=== PATIENT | female | born 1970 | race Caucasian/White ===

== ENCOUNTER 2016-07-07 08:12 | Emergency (ER) | payer OTHER ==
[~2016-07-07] VITALS: Ht 157.5 cm; Wt 66.7 kg
[~2016-07-07 08:12] MED LIST: ALBUAER INH; BENZ1CAP90 PO; FLUO20CA35 PO; ONDA4TAB46 PO; SUMA50TA15 PO; VORT10TA PO
[2016-07-07 08:15] VITALS: TEMP 36.5; Ht 157.5 cm; Wt 66.7 kg
[2016-07-07] MEDS ORDERED: SODIUM CHLORIDE 0.9% 1000ML 1,000 ML IV STA (08:22)
[2016-07-07] MEDS ORDERED: ONDANSETRON INJ 2 MG/ML 2 ML VIAL IV STA ×2 (09:02→09:34)
[2016-07-07] MEDS ORDERED: HYDROmorphone INJ 1 MG/ML SYR IV STA ×2 (09:02→09:34)
[2016-07-07 09:05] LABS: BASO % 0.4 %; BASO ABS # 0.03 K/uL (0-0.2); COMPLETE YES; EOS % 2.6 %; HEMATOCRIT 44.1 % (37-47); IG% 0.4 %; LYMPH % 26.9 %; LYMPH ABS # 1.88 K/uL (1.2-3.4); MEAN CELL VOLUME 97.1 fL (80-100); MEAN CORPUSCULAR HEMOGLOBIN 35.5 pg (25-34); MEAN CORPUSCULAR HGB CONC 36.5 g/dl (32-36); MEAN PLATELET VOLUME 10.6 fL (7.4-10.4); MONO % 8.4 %; NEUT % 61.3 %; PLATELET COUNT 149 K/uL (130-400); RED BLOOD COUNT 4.54 M/uL (4.2-5.4)
[2016-07-07 09:13] LABS: PARTIAL THROMBOPLASTIN RATIO 0.9; PROTHROMBIN TIME (PATIENT) 10.5 SECONDS (9.0-12.0)
[2016-07-07] MEDS ORDERED: OPTIRAY 320 IV PRN (09:15)
[2016-07-07 09:16] VITALS: O2SAT 98
[2016-07-07 09:23] LABS: ALT/SGPT 27 U/L (12-78); BLOOD UREA NITROGEN 14 mg/dl (7-18); BUN/CREATININE RATIO 15.2 (10-20); CALCIUM 8.8 mg/dl (8.5-10.1); CARBON DIOXIDE 19 mmol/L (21-32); CHLORIDE 112 mmol/L (98-107); CREATININE 0.89 mg/dl (0.60-1.20); GLUCOSE 90 mg/dl (70-99); POTASSIUM 3.4 mmol/L (3.5-5.1); SODIUM 142 mmol/L (136-145)
[2016-07-07 09:26] LABS: ALKALINE PHOSPHATASE 48 U/L (45-117); AST/SGOT 19 U/L (15-37)
[2016-07-07 09:36] LABS: PREG INTERNAL NEGATIVE QC NEG CLEAR BACKGROUND; PREG INTERNAL POSITIVE QC POS CONTROL LINE
[2016-07-07] MEDS ORDERED: METOCLOPRAMIDE HCL INJ 5 MG/ML 2 ML VIAL IV STA (10:02)
[2016-07-07] MEDS ORDERED: PANTOprazole INJ 40 MG in SYRINGE 0 ML IV ONE (10:15)
[2016-07-07 10:21] LABS: URINE APPEARANCE CLOUDY (CLEAR); URINE BILIRUBIN NEG (NEG); URINE EPITHELIAL CELL AUTO >30 /lpf (0-5); URINE NITRITE NEG (NEG); URINE PH 5.5 (4.5-7.5); URINE SPECIFIC GRAVITY 1.021 (1.000-1.030); UROBILINOGEN NEG (NEG)
[2016-07-07 10:22] LABS: MANUAL MICROSCOPIC REQUIRED? NO; REVIEW REQ? NO; URINE COLOR AMBER
--- NOTE | 2016-07-07 10:46 | DIAGNOSTIC IMAGING REPORT ---
ABDOMEN AND PELVIS CT WITH IV CONTRAST CT DOSE: 548.21 mGy.cm HISTORY: Left lower quadrant abdominal pain. Rectal bleeding. Ulcerative colitis. TECHNIQUE: Multiaxial CT images of the abdomen and pelvis were performed following the use of intravenous contrast. COMPARISON STUDY: Abdomen and pelvis CT 12/03/2014. FINDINGS: Tiny fat-containing hiatus hernia. Stable 4 mm nodule within the right lower lobe on image 1. No pneumoperitoneum. No pneumatosis. Cholecystectomy. The liver, spleen, adrenal glands, pancreas, and right kidney are unremarkable. There is a punctate stone within the upper pole the left kidney. No hydronephrosis. The bladder, uterus, and ovaries are unremarkable. No retroperitoneal lymphadenopathy. Mild wall thickening and pericolonic fat stranding involving the descending colon and proximal sigmoid colon. No evidence for bowel obstruction. A few colonic diverticula. Normal appendix. IMPRESSION: 1. Mild bowel wall thickening involving the descending colon and proximal sigmoid colon. This is consistent with a nonspecific colitis. This is likely due to an infectious or inflammatory process. 2. Cholecystectomy. 3. Stable 4 mm nodule in the right lower lobe. 4. Normal appendix. Electronically signed by: Balwinder Beltran M.D. 07/07/2016 10:44 AM Dictated Date/Time: 07/07/2016 10:38 AM
[2016-07-07] MEDS ORDERED: DICY20TA35 PO (12:33)
[2016-07-07 12:48] VITALS: BP 95/57; PULSE 67; O2SAT 92
--- NOTE | 2016-07-07 16:25 | EMERGENCY ROOM VISIT NOTE ---
History Report prepared by Sarbjit: Elba Sosa Under the Supervision of: Dr. Eric Adams M.D. First contact with patient: 08:14 Chief Complaint: GI ASSESSMENT Stated Complaint: GI BLEED Nursing Triage Summary: Patient c/o abdominal pain, bloating, nausea, diarrhea and red blood in stool x 2 days. Today she woke up, "had one sip of water and it all started again" hx Ulcerative colitis. Takes Coumadin but has not taken it the last few days. History of Present Illness The patient is a 45 year old female who presents to the Emergency Room for a GI assessment as she has experienced approximately 8 movements of diarrhea with bright red blood throughout her stool over the past 2 days. Currently, she is experiencing pain to her lower abdomen, which radiates through to her back, and she rates her discomfort as a 7/10. Since the time of onset, the patient has also felt nauseous, but she denies vomiting or having any dysuria or hematuria. She is currently on the last day of her menstrual cycle, which she states has been normal for her. The patient has a history of factor V Leiden, which is managed with Coumadin, but she states that she stopped taking it two days ago as she thought that it was upsetting her stomach. She also has a history of ulcerative colitis, but her last flare up was 7 years ago and she is not on any maintenance therapy. Patient denies recent fevers, chills, headache, chest pain , shortness of breath, or abnormal swelling to her extremities. Source of History: patient Onset: yesterday Position: abdomen Symptom Intensity: 7/10 Quality: other (bright red blood) Timing: other (8 movements) Modifying Factors (Worsening): defecation Associated Symptoms: + abdominal pain, + diarrhea, + nausea, No SOB, No chest pain, No fevers, No urinary symptoms, No vomiting Review of Systems See HPI for pertinent positives & negatives. A total of 10 systems reviewed and were otherwise negative. Past Medical & Surgical Medical Problems: (1) Abdominal pain (2) Abdominal pain (3) Abdominal pain (4) Abdominal pain (5) Abdominal pain (6) Acute bronchitis (7) Asthma, Unspecified (8) Bipolar Disorder, Unspecified (9) Cervical strain (10) Closed head injury (11) Common Migraine W/O Intractable Migraine (12) Dehydration (13) Dizziness (14) DVT of lower extremity (deep venous thrombosis) (15) Epilepsy, Unsp, Not Intractable, Without Status Epilepticus (16) Facial laceration (17) Factor V Leiden (18) Factor V Leiden (19) Flank pain (20) GI bleed (21) Kidney stone (22) Kidney stone (23) Leg pain, right (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 (25) Multiple pulmonary emboli (26) Pain, dental (27) Pleuritic chest pain (28) Right leg pain (29) Subtherapeutic international normalized ratio (INR) (30) Subtherapeutic international normalized ratio (INR) Surgical Problems: (1) Tubal Ligation Status Family History FH: cancer Gallbladder disease Kidney disease Kidney stones Social History Smoking Status: Current Some Day Smoker Alcohol Use: none Drug Use: none Marital Status: Housing Status: lives with family Occupation Status: employed Current/Historical Medications Scheduled Dicyclomine Hcl (Bentyl), 20 MG PO TID Fluoxetine (Prozac), 20 MG PO DAILY Topiramate (Topamax), 400 MG PO QAM Vortioxetine HBr (Brintellix), 15 MG PO DAILY Warfarin Sodium (Coumadin), 5 MG PO DAILY Scheduled PRN Albuterol (Proventil Hfa), 2 PUFFS INH QID PRN for Shortness of Breath Hydrocodone/Acetaminophen 5MG/325MG ([place] 5MG/325MG), 1 TAB PO Q8 PRN for Pain Lorazepam (Ativan), 0.5 MG PO BID PRN for Anxiety Sumatriptan Succinate (Imitrex), 50 MG PO UD PRN for Migraine Allergies Coded Allergies: Morphine (Verified Allergy, Intermediate, chest pain; trouble breathing, ) Chocolate (Verified Allergy, Unknown, 07/07/16) Kiwi (Verified Allergy, Unknown, ANAPHYLAXIS, 07/07/16) Peanut (Verified Allergy, Unknown, 07/07/16) Prochlorperazine (Verified Allergy, Unknown, SEVERE ALLERGIC RXN, 07/07/16) Physical Exam Vital Signs Date Time Temp Pulse Resp B/P Pulse Ox O2 Delivery O2 Flow Rate FiO2 07/07/16 12:48 67 18 95/57 92 Room Air 07/07/16 11:03 81 18 97/52 98 Room Air 07/07/16 09:26 70 07/07/16 09:19 74 20 106/67 95 Room Air 07/07/16 09:16 98 Room Air 07/07/16 08:15 36.5 84 22 115/74 96 Room Air Physical Exam GENERAL: Patient is a healthy-appearing well-nourished 45 year old female. Appears uncomfortable, in mild distress. HEAD: Normocephalic atraumatic EYES: Ocular movements intact pupils equal and react to light OROPHARYNX mucous membranes are moist no exudates present no erythema or edema present NECK: Supple no nuchal rigidity CHEST: Good equal expansion LUNGS: Clear and equal to auscultation CARDIAC: Normal S1 and S2 ABDOMEN: Slight tenderness to the LLQ to palpation. RECTAL: Brown stool, heme negative. BACK: No CVA tenderness EXTREMITIES: No pain upon palpation normal muscle strength in all groups no clubbing cyanosis or edema NEURO: Patient is following commands is answering questions appropriately. Alert and oriented x3 Cranial Nerves 2-12 grossly intact Medical Decision & Procedures ER Provider Diagnostic Interpretation: CT results as stated below per my review and radiologist interpretation: ABDOMEN AND PELVIS CT WITH IV CONTRAST CT DOSE: 548.21 mGy.cm HISTORY: Left lower quadrant abdominal pain. Rectal bleeding. Ulcerative colitis. TECHNIQUE: Multiaxial CT images of the abdomen and pelvis were performed following the use of intravenous contrast. COMPARISON STUDY: Abdomen and pelvis CT 12/03/2014. FINDINGS: Tiny fat-containing hiatus hernia. Stable 4 mm nodule within the right lower lobe on image 1. No pneumoperitoneum. No pneumatosis. Cholecystectomy. The liver, spleen, adrenal glands, pancreas, and right kidney are unremarkable. There is a punctate stone within the upper pole the left kidney. No hydronephrosis. The bladder, uterus, and ovaries are unremarkable. No retroperitoneal lymphadenopathy. Mild wall thickening and pericolonic fat stranding involving the descending colon and proximal sigmoid colon. No evidence for bowel obstruction. A few colonic diverticula. Normal appendix. IMPRESSION: 1. Mild bowel wall thickening involving the descending colon and proximal sigmoid colon. This is consistent with a nonspecific colitis. This is likely due to an infectious or inflammatory process. 2. Cholecystectomy. 3. Stable 4 mm nodule in the right lower lobe. 4. Normal appendix. Electronically signed by: Balwinder Beltran M.D. 07/07/2016 10:44 AM Dictated Date/Time: 07/07/2016 10:38 AM Laboratory Results 07/07/16 08:49 Red Blood Count 4.54, Mean Corpuscular Volume 97.1, Mean Corpuscular Hemoglobin 35.5, Mean Corpuscular Hemoglobin Concent 36.5, Mean Platelet Volume 10.6, Neutrophils (%) (Auto) 61.3, Lymphocytes (%) (Auto) 26.9, Monocytes (%) (Auto) 8.4, Eosinophils (%) (Auto) 2.6, Basophils (%) (Auto) 0.4, Neutrophils # (Auto) 4.29, Lymphocytes # (Auto) 1.88, Monocytes # (Auto) 0.59, Eosinophils # (Auto) 0.18, Basophils # (Auto) 0.03 07/07/16 08:49 Test 07/07/16 08:49 07/07/16 10:10 White Blood Count 7.00 K/uL (4.8-10.8) Red Blood Count 4.54 M/uL (4.2-5.4) Hemoglobin 16.1 g/dL (12.0-16.0) Hematocrit 44.1 % (37-47) Mean Corpuscular Volume 97.1 fL (80-100) Mean Corpuscular Hemoglobin 35.5 pg (25-34) Mean Corpuscular Hemoglobin Concent 36.5 g/dl (32-36) Platelet Count 149 K/uL (130-400) Mean Platelet Volume 10.6 fL (7.4-10.4) Neutrophils (%) (Auto) 61.3 % Lymphocytes (%) (Auto) 26.9 % Monocytes (%) (Auto) 8.4 % Eosinophils (%) (Auto) 2.6 % Basophils (%) (Auto) 0.4 % Neutrophils # (Auto) 4.29 K/uL (1.4-6.5) Lymphocytes # (Auto) 1.88 K/uL (1.2-3.4) Monocytes # (Auto) 0.59 K/uL (0.11-0.59) Eosinophils # (Auto) 0.18 K/uL (0-0.5) Basophils # (Auto) 0.03 K/uL (0-0.2) RDW Standard Deviation 44.4 fL (36.4-46.3) RDW Coefficient of Variation 12.5 % (11.5-14.5) Immature Granulocyte % (Auto) 0.4 % Immature Granulocyte # (Auto) 0.03 K/uL (0.00-0.02) Prothrombin Time 10.5 SECONDS (9.0-12.0) Prothromb Time International Ratio 1.0 (0.9-1.1) Activated Partial Thromboplast Time 23.0 SECONDS (21.0-31.0) Partial Thromboplastin Ratio 0.9 Anion Gap 11.0 mmol/L (3-11) Est Creatinine Clear Calc Drug Dose 73.0 ml/min Estimated GFR () 92.0 Estimated GFR (Non- 79.4 BUN/Creatinine Ratio 15.2 (10-20) Calcium Level 8.8 mg/dl (8.5-10.1) Total Bilirubin 0.4 mg/dl (0.2-1) Direct Bilirubin < 0.1 mg/dl (0-0.2) Aspartate Amino Transf (AST/SGOT) 19 U/L (15-37) Alanine Aminotransferase (ALT/SGPT) 27 U/L (12-78) Alkaline Phosphatase 48 U/L (45-117) Total Protein 6.9 gm/dl (6.4-8.2) Albumin 3.6 gm/dl (3.4-5.0) Lipase 206 U/L (73-393) Human Chorionic Gonadotropin, Qual NEG (NEG) Urine Color ANNABELLE Urine Appearance CLOUDY (CLEAR) Urine pH 5.5 (4.5-7.5) Urine Specific Wana 1.021 (1.000-1.030) Urine Protein 1+ (NEG) Urine Glucose (UA) NEG (NEG) Urine Ketones NEG (NEG) Urine Occult Blood 3+ (NEG) Urine Nitrite NEG (NEG) Urine Bilirubin NEG (NEG) Urine Urobilinogen NEG (NEG) Urine Leukocyte Esterase SMALL (NEG) Urine WBC (Auto) 5-10 /hpf (0-5) Urine RBC (Auto) >30 /hpf (0-4) Urine Hyaline Casts (Auto) 1-5 /lpf (0-5) Urine Epithelial Cells (Auto) >30 /lpf (0-5) Urine Bacteria (Auto) 1+ (NEG) Labs reviewed by ED physician. Medications Administered Medications (Trade) Dose Ordered Sig/Cassy Route Start Time Stop Time Status Last Admin Dose Admin Sodium Chloride (Nss 1000ml) 1,000 ml @ 999 mls/hr Q1H1M STAT IV 07/07/16 08:22 07/07/16 09:22 DC 07/07/16 09:13 999 MLS/HR Hydromorphone HCl (Dilaudid Inj) 1 mg NOW STAT IV 07/07/16 09:02 07/07/16 09:04 DC 07/07/16 09:13 1 MG Ondansetron HCl (Zofran Inj) 4 mg NOW STAT IV 07/07/16 09:02 07/07/16 09:04 DC 07/07/16 09:13 4 MG Hydromorphone HCl (Dilaudid Inj) 1 mg NOW STAT IV 07/07/16 09:34 07/07/16 09:36 DC 07/07/16 10:04 1 MG Ondansetron HCl (Zofran Inj) 4 mg NOW STAT IV 07/07/16 09:34 07/07/16 09:36 DC 07/07/16 10:04 4 MG Metoclopramide HCl 10 mg 10 mg NOW STAT IV 07/07/16 10:02 07/07/16 10:04 DC 07/07/16 10:07 10 MG Pantoprazole Sodium/Syringe (Protonix Inj/ Syringe) 10 ml @ 5 mls/min NOW ONCE IV 07/07/16 10:15 07/07/16 10:16 DC 07/07/16 11:02 5 MLS/MIN ECG Indication: abdominal pain Rate (beats per minute): 62 Rhythm: normal sinus Findings: T-wave inversion (Lateral), no acute ischemic change, no ectopy ED Course 0820: Past medical records reviewed. The patient was evaluated in room B6. A complete history and physical examination was performed. 0822: NSS bolus IV was ordered. 0902: Zofran 4 mg IV and Dilaudid 1 mg IV were ordered. 0934: Upon reevaluation, patient was still experiencing pain. Zofran 4 mg IV and Dilaudid 1 mg IV were ordered. 1002: Patient was still having discomfort and was requesting additional medication. Reglan 10 mg IV was ordered. 1015: Pantoprazole Sodium 40 mg/Syringe 10 ml @ 5 mls/min IV was ordered. 1055: Upon reevaluation, the patient was doing well and appeared to be resting more comfortably. I updated her on the results of her radiology reports and lab tests that have returned. GI will be consulted. 1145: Apolonia Corbett PA-C of GI was contacted. She stated that the patient could be discharged on Bentyl. 1200: I updated the patient on my discussion with GI. Additional discharge instructions were also discussed. She verbalized her understanding and agreement with the treatment plan, and she is now ready for disposition. Medical Decision Differential diagnosis: Etiologies such as diverticulosis, AVM, coagulopathy, colitis, inflammatory bowel disease, malignancy, Peg-Snyder tear, esophagitis, peptic ulcer disease , variceal bleed, gastritis, epistaxis, fissure, hemorrhoids, as well as others were entertained. This is a 45-year-old female who presents emergency department complaining of rectal bleeding. The patient is heme negative on rectal examination. In addition the patient's hemoglobin is x-ray higher than it normally is. She also has a normal liver profile normal liver profile and normal lipase. Serial abdominal examinations were performed on the patient in the emergency department and at no time did the patient exhibited a surgical abdomen. Because of the patient's past medical history of ulcerative colitis she was sent for CAT scan of the abdomen pelvis. This just showed a mild colitis. In addition the patient has never been placed on steroids for ulcerative colitis nor does she take any preventative medications. Based on these findings I did discuss the case with gastroenterology who asked that the patient be placed on Bentyl with a follow-up appointment. Patient was in agreement with the treatment plan. Consults Time Called: 1100 Consulting Physician: Apolonia Corbett PA-C GI Returned Call: [phone] Discussed the patient's case. She stated that the patient could be discharge on Bentyl. Impression Primary Impression: Abdominal pain Scribe Attestation The scribe's documentation has been prepared under my direction and personally reviewed by me in its entirety. I confirm that the note above accurately reflects all work, treatment, procedures, and medical decision making performed by me. Departure Information Dispostion Home / Self-Care Prescriptions Dicyclomine Hcl (BENTYL) 20 Mg Tab 20 MG PO TID for 10 Days, #30 TAB Prov: Eric Adams MD 07/07/16 Referrals No Doctor, Assigned (PCP) Forms HOME CARE DOCUMENTATION FORM, IMPORTANT VISIT INFORMATION Patient Instructions My [facility] Additional Instructions Follow up with DR Mcnamara's office Clear liquid diet next 48 hours You have been examined and treated today on an emergency basis only. This is not a substitute for, or an effort to provide, complete comprehensive medical care. It is impossible to recognize and treat all injuries or illnesses in a single emergency department visit. It is therefore important that you follow up closely with Dr Turpin. Call as soon as possible for an appointment. Thank you for your time and consideration. I look forward to speaking with you again soon. Please don't hesitate to call us if you have any questions. Problem Qualifiers Primary Impression: Abdominal pain Abdominal location: lower abdomen, unspecified Qualified Codes: R10.30 - Lower abdominal pain, unspecified
[2016-07-28] MEDS ORDERED: LORA-741 PO (14:14)
[2016-08-02] MEDS ORDERED: VNTHFA/IN INH (08:18)
[2016-08-02] MEDS ORDERED: HYDR-5688 PO (08:40)
[2016-08-02] MEDS ORDERED: TOPI200T20 PO (14:14)
[2016-08-03] MEDS ORDERED: OXYC-643 PO ×3 (18:13→19:58)
== END 2016-07-07 12:50 | disposition home or self-care (01) ==
LOC: C.EDB 08:14
DX: R10.9 Unspecified abdominal pain (principal); D68.51 Activated protein C resistance; Z79.01 Long term (current) use of anticoagulants; J45.909 Unspecified asthma, uncomplicated; Z86.718 Personal history of other venous thrombosis and embolism; G40.909 Epilepsy, unspecified, not intractable, without status epilepticus; Z87.442 Personal history of urinary calculi; Z86.711 Personal history of pulmonary embolism; Z98.51 Tubal ligation status; F17.200 Nicotine dependence, unspecified, uncomplicated; Z88.5 Allergy status to narcotic agent; Z91.018 Allergy to other foods

== ENCOUNTER 2016-07-25 06:22 | Emergency (ER) | payer OTHER ==
[~2016-07-25] VITALS: Ht 157.5 cm; Wt 66.9 kg
[~2016-07-25 06:22] MED LIST changes: -BENZ1CAP90 PO; -ONDA4TAB46 PO
[2016-07-25 06:28] VITALS: Ht 157.5 cm; Wt 66.9 kg
[2016-07-25 07:18] LABS: URINE APPEARANCE CLOUDY (CLEAR); URINE BILIRUBIN NEG (NEG); URINE COLOR YELLOW; URINE EPITHELIAL CELL AUTO >30 /lpf (0-5); URINE NITRITE NEG (NEG); URINE SPECIFIC GRAVITY 1.033 (1.000-1.030); UROBILINOGEN NEG (NEG); ZZUR CULT IF INDIC CLEAN CATCH YES
[2016-07-25 07:29] LABS: MANUAL MICROSCOPIC REQUIRED? NO; REVIEW REQ? NO
--- NOTE | 2016-07-25 07:37 | DIAGNOSTIC IMAGING REPORT ---
ULTRASOUND LEFT VENOUS DOPP LOWER EXT UNILAT CLINICAL HISTORY: Left lower extremity swelling COMPARISON STUDY: No previous studies for comparison. FINDINGS: There is thrombus within the left common femoral vein. The appearance suggests that this may be subacute. There is acute thrombus within the left popliteal vein. There is chronic thrombus within the superficial femoral vein. There is extensive superficial thrombus extending over the entire length of the posterior thigh. IMPRESSION: 1. Acute and subacute DVT involving the left lower extremity with involvement of the common femoral, superficial femoral, and popliteal vein 2. Also identified is a superficial thrombus involving the entire length of the posterior thigh Electronically signed by: Dae Davis M.D. 07/25/2016 7:35 AM Dictated Date/Time: 07/25/2016 7:32 AM
[2016-07-25] MEDS ORDERED: SODIUM CHLORIDE 0.9% 1000ML 1,000 ML IV STA (07:47)
[2016-07-25 07:50] VITALS: O2SAT 97
--- NOTE | 2016-07-25 07:56 | EMERGENCY ROOM VISIT NOTE ---
History Report prepared by Sarbjit: Basilia Gerard Under the Supervision of: Dr. Jennifer Borjas M.D. First contact with patient: 06:37 Chief Complaint: EDEMA TO EXTREMITY Stated Complaint: LT LEG PAIN SWOLLEN, DVT History of Present Illness The patient is a 45 year old female who presents to the Emergency Room with complaints of persistent left leg swelling that began Sunday. She currently rates her discomfort as an 8/10 in severity. The patient states that she first noticed a soreness to her left leg on Sunday and then she noticed the swelling. She states that her soreness worsened and then the swelling worsened. 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 She states that she had a PE two years ago. The patient states that she has been on Coumadin since she was 18 and states that her last INR level was 3.1 before . She states that she developed back pain 15 minutes ago and additionally is feeling lightheaded. The patient denies any shortness of breath. She notes a history of a seizure disorder, noting that she takes 10 mg of Topamax. The patient denies taking any long trips recently. Source of History: patient Onset: Sunday Position: leg (left) Symptom Intensity: 8/10 Quality: other (swelling) Timing: other (persistent) Associated Symptoms: + back pain, No SOB Note: Associated Symptoms: Left leg pain, lightheadedness Review of Systems See HPI for pertinent positives & negatives. A total of 10 systems reviewed and were otherwise negative. Past Medical & Surgical Medical Problems: (1) Abdominal pain (2) Abdominal pain (3) Abdominal pain (4) Abdominal pain (5) Abdominal pain (6) Acute bronchitis (7) Asthma, Unspecified (8) Bipolar Disorder, Unspecified (9) Cervical strain (10) Closed head injury (11) Common Migraine W/O Intractable Migraine (12) Dehydration (13) Dizziness (14) DVT of lower extremity (deep venous thrombosis) (15) Epilepsy, Unsp, Not Intractable, Without Status Epilepticus (16) Facial laceration (17) Factor V Leiden (18) Factor V Leiden (19) Flank pain (20) GI bleed (21) Kidney stone (22) Kidney stone (23) Leg pain, right (24) Fpc (Current) Use Of 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 (25) Multiple pulmonary emboli (26) Pain, dental (27) Pleuritic chest pain (28) Right leg pain (29) Subtherapeutic international normalized ratio (INR) (30) Subtherapeutic international normalized ratio (INR) Surgical Problems: (1) Tubal Ligation Status Family History FH: cancer Gallbladder disease Kidney disease Kidney stones Social History Smoking Status: Current Some Day Smoker Alcohol Use: none Drug Use: none Marital Status: Housing Status: lives with family Occupation Status: employed Current/Historical Medications Scheduled Albuterol Hfa (Ventolin Hfa), 2-4 PUFFS INH Q6H Fluoxetine (Prozac), 20 MG PO DAILY Rivaroxaban (Xarelto), 15 MG PO BID Topiramate (Topamax), 400 MG PO QAM Warfarin Sodium (Coumadin), 5 MG PO DAILY Scheduled PRN Hydrocodone/Acetaminophen 5MG/325MG ([place] 5MG/325MG), 1 TAB PO Q8 PRN for Pain Lorazepam (Ativan), 0.5 MG PO BID PRN for Anxiety Sumatriptan Succinate (Imitrex), 50 MG PO UD PRN for Migraine Allergies Coded Allergies: Morphine (Verified Allergy, Intermediate, chest pain; trouble breathing, ) Chocolate (Verified Allergy, Unknown, 07/25/16) Kiwi (Verified Allergy, Unknown, ANAPHYLAXIS, 07/25/16) Peanut (Verified Allergy, Unknown, 07/25/16) Prochlorperazine (Verified Allergy, Unknown, SEVERE ALLERGIC RXN, 07/25/16) Physical Exam Vital Signs Date Time Temp Pulse Resp B/P Pulse Ox O2 Delivery O2 Flow Rate FiO2 07/25/16 11:52 36.6 76 18 103/65 99 07/25/16 11:26 56 20 110/58 98 Room Air 07/25/16 09:14 60 20 106/61 97 Room Air 07/25/16 07:50 97 Room Air 07/25/16 07:34 66 20 112/74 98 Room Air 07/25/16 06:28 36.6 88 18 121/80 96 Room Air Physical Exam Vital signs reviewed. General: Well-appearing female, in no significant distress. HEENT: No scleral icterus, PERRLA, neck supple. Atraumatic. Cardiovascular: Regular rate and rhythm, no extra sounds. Pulmonary: Clear to auscultation bilaterally, normal work of breathing. Abdomen: Soft, nontender, nondistended, positive bowel sounds. Musculoskeletal: Left greater right lower extremity edema, nonpitting. Atraumatic. Neurologic: Patient awake alert and oriented x 3, full strength in all 4 extremities. Cranial nerves 2 through 12 grossly intact. Skin: Warm, dry, no rash Medical Decision & Procedures ER Provider Diagnostic Interpretation: X-ray results as stated below per my interpretation and radiologist interpretation. Other radiology results as stated below per my review and radiologist interpretation: ULTRASOUND LEFT VENOUS DOPP LOWER EXT UNILAT CLINICAL HISTORY: Left lower extremity swelling COMPARISON STUDY: No previous studies for comparison. FINDINGS: There is thrombus within the left common femoral vein. The appearance suggests that this may be subacute. There is acute thrombus within the left popliteal vein. There is chronic thrombus within the superficial femoral vein. There is extensive superficial thrombus extending over the entire length of the posterior thigh. IMPRESSION: 1. Acute and subacute DVT involving the left lower extremity with involvement of the common femoral, superficial femoral, and popliteal vein 2. Also identified is a superficial thrombus involving the entire length of the posterior thigh Electronically signed by: Dae Davis M.D. 07/25/2016 7:35 AM Dictated Date/Time: 07/25/2016 7:32 AM CHEST CTA for PULMONARY ARTERIES CT DOSE: 217.68 mGy.cm HISTORY: Chest pain dyspnea TECHNIQUE: Multiaxial CT images of the chest were performed following the intravenous administration of contrast to evaluate the pulmonary arteries. Maximal intensity projection images were also obtained. COMPARISON STUDY: None. FINDINGS: There is a normal caliber thoracic aorta with no evidence for dissection. There is no evidence for pulmonary embolus. No pleural effusions. No pneumothorax. The liver and spleen are unremarkable. No mediastinal or hilar lymphadenopathy. The central airways are patent. The lungs are clear. 2 small nonobstructing renal calcifications IMPRESSION: No evidence for pulmonary embolus. Electronically signed by: Mark Anthony Darling M.D. 07/25/2016 8:50 AM Dictated Date/Time: 07/25/2016 8:31 AM Laboratory Results 07/25/16 08:08 Red Blood Count 4.47, Mean Corpuscular Volume 97.3, Mean Corpuscular Hemoglobin 35.1, Mean Corpuscular Hemoglobin Concent 36.1, Mean Platelet Volume 10.5, Neutrophils (%) (Auto) 45.5, Lymphocytes (%) (Auto) 41.4, Monocytes (%) (Auto) 7.9, Eosinophils (%) (Auto) 4.4, Basophils (%) (Auto) 0.5, Neutrophils # (Auto) 2.69, Lymphocytes # (Auto) 2.45, Monocytes # (Auto) 0.47, Eosinophils # (Auto) 0.26, Basophils # (Auto) 0.03 07/25/16 08:08 Test 07/25/16 06:38 07/25/16 07:56 07/25/16 08:08 Urine Color YELLOW Urine Appearance CLOUDY (CLEAR) Urine pH 6.0 (4.5-7.5) Urine Specific [place] 1.033 (1.000-1.030) Urine Protein NEG (NEG) Urine Glucose (UA) NEG (NEG) Urine Ketones NEG (NEG) Urine Occult Blood NEG (NEG) Urine Nitrite NEG (NEG) Urine Bilirubin NEG (NEG) Urine Urobilinogen NEG (NEG) Urine Leukocyte Esterase NEG (NEG) Urine WBC (Auto) 1-5 /hpf (0-5) Urine RBC (Auto) 0-4 /hpf (0-4) Urine Hyaline Casts (Auto) 1-5 /lpf (0-5) Urine Epithelial Cells (Auto) >30 /lpf (0-5) Urine Bacteria (Auto) 1+ (NEG) Bedside Hemoglobin 14.3 g/dl (12.0-16.0) Bedside Hematocrit 42 % (37-47) Bedside Sodium 140 mEq/L (135-144) Bedside Potassium 4.4 mEq/L (3.3-5.0) Bedside Chloride 109 mEq/L (101-112) Bedside Total CO2 20 mEq/l (24-31) Bedside Blood Urea Nitrogen 11 mg/dl (7-18) Bedside Creatinine 0.7 mg/dl (0.6-1.3) Bedside Glucose (other) 84 mg/dl (70-99) Bedside Ionized Calcium (Omid) 1.06 mmol/l (1.12-1.32) White Blood Count 5.92 K/uL (4.8-10.8) Red Blood Count 4.47 M/uL (4.2-5.4) Hemoglobin 15.7 g/dL (12.0-16.0) Hematocrit 43.5 % (37-47) Mean Corpuscular Volume 97.3 fL (80-100) Mean Corpuscular Hemoglobin 35.1 pg (25-34) Mean Corpuscular Hemoglobin Concent 36.1 g/dl (32-36) Platelet Count 102 K/uL (130-400) Mean Platelet Volume 10.5 fL (7.4-10.4) Neutrophils (%) (Auto) 45.5 % Lymphocytes (%) (Auto) 41.4 % Monocytes (%) (Auto) 7.9 % Eosinophils (%) (Auto) 4.4 % Basophils (%) (Auto) 0.5 % Neutrophils # (Auto) 2.69 K/uL (1.4-6.5) Lymphocytes # (Auto) 2.45 K/uL (1.2-3.4) Monocytes # (Auto) 0.47 K/uL (0.11-0.59) Eosinophils # (Auto) 0.26 K/uL (0-0.5) Basophils # (Auto) 0.03 K/uL (0-0.2) RDW Standard Deviation 44.2 fL (36.4-46.3) RDW Coefficient of Variation 12.4 % (11.5-14.5) Immature Granulocyte % (Auto) 0.3 % Immature Granulocyte # (Auto) 0.02 K/uL (0.00-0.02) Prothrombin Time 36.4 SECONDS (9.0-12.0) Prothromb Time International Ratio 3.2 (0.9-1.1) Activated Partial Thromboplast Time 32.2 SECONDS (21.0-31.0) Partial Thromboplastin Ratio 1.2 Anion Gap 11.0 mmol/L (3-11) Est Creatinine Clear Calc Drug Dose 71.5 ml/min Estimated GFR () 89.6 Estimated GFR (Non- 77.3 BUN/Creatinine Ratio 11.8 (10-20) Calcium Level 8.1 mg/dl (8.5-10.1) Total Bilirubin 0.1 mg/dl (0.2-1) Direct Bilirubin < 0.1 mg/dl (0-0.2) Aspartate Amino Transf (AST/SGOT) 36 U/L (15-37) Alanine Aminotransferase (ALT/SGPT) 41 U/L (12-78) Alkaline Phosphatase 70 U/L (45-117) Total Protein 7.1 gm/dl (6.4-8.2) Albumin 3.5 gm/dl (3.4-5.0) Laboratory results per my review. Medications Administered Medications (Trade) Dose Ordered Sig/Cassy Route Start Time Stop Time Status Last Admin Dose Admin Sodium Chloride (Nss 1000ml) 1,000 ml @ 999 mls/hr Q1H1M STAT IV 07/25/16 07:47 07/25/16 08:47 DC 07/25/16 07:47 999 MLS/HR ED Course 0745: Past medical records reviewed. The patient was evaluated in room A10. A complete history and physical examination was performed. 0747: Ordered Sodium Chloride 1000 ml @ 999 mls/hr IV. 0959: I discussed the patients case with Dr. Turpin, Internal Medicine. She states that the patient is normally noncompliant with her Coumadin. 1010: I reevaluated the patient and she is resting comfortably. I discussed the exam findings with her and I discussed the treatment plan. She verbalized complete understanding and agreement. She is ready to go home. Medical Decision Differential diagnosis: Etiologies such as DVT, musculoskeletal, infection, joint effusion, trauma, lymphedema, idiopathic, CHF, as well as others were entertained. This patient was evaluated and appeared to be in no significant distress. IV access was obtained and laboratory work was drawn. The patient was placed on the security monitor and found to be in a normal sinus rhythm. She was hydrated with normal saline solution. Left lower extremity Doppler was performed and is significant for DVT. Patient complained of pain in the mid back. A CT scan was performed to rule out pulmonary embolus. This study is negative. Patient' s INR is therapeutic. Patient does have a history of medication noncompliance, although she denies this recently. At this point the patient must be considered a Coumadin failure. She was started on Xarelto. The patient has difficulty with prescription coverage and is currently dealing with the access office. She was given a coupon for a free 30 day supply of Xarelto. She will follow-up with her physician tomorrow as scheduled by case management and return to the ER for worsening of symptoms or any medical concerns. Consults Time Called: 1917 Consulting Physician: Dr. Turpin, Internal Medicine Returned Call: [phone] I discussed the patients case with Dr. Turpin, Internal Medicine. She states that the patient is normally noncompliant with her Coumadin. Impression Primary Impression: DVT (deep venous thrombosis) Additional Impression: Anticoagulated on warfarin Scribe Attestation The scribe's documentation has been prepared under my direction and personally reviewed by me in its entirety. I confirm that the note above accurately reflects all work, treatment, procedures, and medical decision making performed by me. Departure Information Dispostion Home / Self-Care Prescriptions Rivaroxaban (XARELTO) 15 Mg Tab 15 MG PO BID for 21 Days, #42 TAB Prov: Jennifer Borjas M.D. 07/25/16 Referrals Rula Turpin M.D. (PCP) Forms HOME CARE DOCUMENTATION FORM, IMPORTANT VISIT INFORMATION, WORK / SCHOOL INSTRUCTIONS Patient Instructions My [facility] Additional Instructions Diagnosis: DVT Please stop Coumadin therapy. Eliquis 10 mg twice daily for 7 days, then 5 mg twice daily. Follow-up with Dr. Emerson tomorrow in clinic as directed. Return to the ER for worsening of symptoms or any medical concerns. Problem Qualifiers Primary Impression: DVT (deep venous thrombosis) DVT location: lower extremity Affected thrombotic vein of extremity: unspecified vein of extremity Laterality: left Chronicity: acute Qualified Codes: I82.402 - Acute embolism and thrombosis of unspecified deep veins of left lower extremity
[2016-07-25] MEDS ORDERED: OPTIRAY 320 IV PRN (08:00)
[2016-07-25 08:13] LABS: ISTAT CREATININE 0.7 mg/dl (0.6-1.3); ISTAT HEMOGLOBIN 14.3 g/dl (12.0-16.0); ISTAT IONIZED CALCIUM 1.06 mmol/l (1.12-1.32)
[2016-07-25 08:16] LABS: BASO % 0.5 %; BASO ABS # 0.03 K/uL (0-0.2); COMPLETE YES; EOS % 4.4 %; HEMATOCRIT 43.5 % (37-47); IG% 0.3 %; LYMPH % 41.4 %; LYMPH ABS # 2.45 K/uL (1.2-3.4); MEAN CELL VOLUME 97.3 fL (80-100); MEAN CORPUSCULAR HEMOGLOBIN 35.1 pg (25-34); MEAN CORPUSCULAR HGB CONC 36.1 g/dl (32-36); MEAN PLATELET VOLUME 10.5 fL (7.4-10.4); MONO % 7.9 %; NEUT % 45.5 %; PLATELET COUNT 102 K/uL (130-400); RED BLOOD COUNT 4.47 M/uL (4.2-5.4); WHITE BLOOD COUNT 5.92 K/uL (4.8-10.8)
[2016-07-25 08:26] LABS: INR 3.2 (0.9-1.1); PARTIAL THROMBOPLASTIN RATIO 1.2; PROTHROMBIN TIME (PATIENT) 36.4 SECONDS (9.0-12.0)
[2016-07-25 08:34] LABS: ALT/SGPT 41 U/L (12-78); AST/SGOT 36 U/L (15-37); BLOOD UREA NITROGEN 11 mg/dl (7-18); BUN/CREATININE RATIO 11.8 (10-20); CALCIUM 8.1 mg/dl (8.5-10.1); CARBON DIOXIDE 22 mmol/L (21-32); CHLORIDE 110 mmol/L (98-107); CREATININE 0.91 mg/dl (0.60-1.20); GLUCOSE 81 mg/dl (70-99); POTASSIUM 3.6 mmol/L (3.5-5.1); SODIUM 143 mmol/L (136-145)
[2016-07-25 08:36] LABS: ALKALINE PHOSPHATASE 70 U/L (45-117)
--- NOTE | 2016-07-25 08:52 | DIAGNOSTIC IMAGING REPORT ---
CHEST CTA for PULMONARY ARTERIES CT DOSE: 217.68 mGy.cm HISTORY: Chest pain dyspnea TECHNIQUE: Multiaxial CT images of the chest were performed following the intravenous administration of contrast to evaluate the pulmonary arteries. Maximal intensity projection images were also obtained. COMPARISON STUDY: None. FINDINGS: There is a normal caliber thoracic aorta with no evidence for dissection. There is no evidence for pulmonary embolus. No pleural effusions. No pneumothorax. The liver and spleen are unremarkable. No mediastinal or hilar lymphadenopathy. The central airways are patent. The lungs are clear. 2 small nonobstructing renal calcifications IMPRESSION: No evidence for pulmonary embolus. Electronically signed by: Mark Anthony Darling M.D. 07/25/2016 8:50 AM Dictated Date/Time: 07/25/2016 8:31 AM
[2016-07-25] MEDS ORDERED: APIX1TAB3 PO (10:50)
[2016-07-25] MEDS ORDERED: RIVA1.5T PO (11:03)
--- NOTE | 2016-07-25 11:12 | Pharmacy Progress Note ---
ED Pharmacist Progress Note Date of Service: Jul 25, 2016. Contacted [facility] pharmacy in [employer] ([address] [place] [address] ) to have Rxs for Eliquis and Warfarin discontinued. The patient is to be on Xarelto 15mg PO BID for the next 21 days then step down to 20mg daily. Rx was already transmitted to [facility] for the Xarelto 15mg BID x 21 days and the pharmacist verified this prescription was received. Patient is to f/u with [facility] for further anticoagulation management tomorrow.
[2016-07-25 11:52] VITALS: BP 103/65; PULSE 76; TEMP 36.6; O2SAT 99
[2016-07-28] MEDS ORDERED: LORA-741 PO (14:14)
[2016-08-02] MEDS ORDERED: VNTHFA/IN INH (08:18)
[2016-08-02] MEDS ORDERED: HYDR-5688 PO (08:40)
[2016-08-02] MEDS ORDERED: TOPI200T20 PO (14:14)
[2016-08-03] MEDS ORDERED: OXYC-643 PO ×3 (18:13→19:58)
== END 2016-07-25 11:53 | disposition home or self-care (01) ==
LOC: C.EDB 06:24 → C.EDA 11:53
DX: I82.432 Acute embolism and thrombosis of left popliteal vein (principal); Z86.711 Personal history of pulmonary embolism; D68.51 Activated protein C resistance; Z79.01 Long term (current) use of anticoagulants; G40.909 Epilepsy, unspecified, not intractable, without status epilepticus; J45.909 Unspecified asthma, uncomplicated; F31.9 Bipolar disorder, unspecified; Z98.51 Tubal ligation status; F17.210 Nicotine dependence, cigarettes, uncomplicated; Z79.899 Other long term (current) drug therapy

== ENCOUNTER 2016-07-28 18:03 | Emergency (ER) | payer OTHER ==
[~2016-07-28] VITALS: Ht 157.5 cm; Wt 67.9 kg
[~2016-07-28 18:03] MED LIST changes: -ALBUAER INH; +LORA-741 PO; +RIVA1.5T PO; -VORT10TA PO
[2016-07-28 18:07] VITALS: TEMP 36.6; Ht 157.5 cm; Wt 67.9 kg
[2016-07-28] MEDS ORDERED: HYDROmorphone INJ 1 MG/ML SYR IV STA ×2 (18:32→20:44)
[2016-07-28] MEDS ORDERED: WARF-246 PO (18:45)
[2016-07-28 19:22] LABS: HEMATOCRIT 42.7 % (37-47); MEAN CELL VOLUME 96.8 fL (80-100); MEAN CORPUSCULAR HEMOGLOBIN 34.9 pg (25-34); MEAN CORPUSCULAR HGB CONC 36.1 g/dl (32-36); MEAN PLATELET VOLUME 11.1 fL (7.4-10.4); PLATELET COUNT 125 K/uL (130-400); RED BLOOD COUNT 4.41 M/uL (4.2-5.4); WHITE BLOOD COUNT 7.22 K/uL (4.8-10.8)
[2016-07-28] MEDS ORDERED: CALCIUM CARBONATE 500 MG CHEWABLE PO STA (20:03)
[2016-07-28 21:01] LABS: INR 3.6 (0.9-1.1); PARTIAL THROMBOPLASTIN RATIO 1.3; PROTHROMBIN TIME (PATIENT) 40.1 SECONDS (9.0-12.0)
[2016-07-28] MEDS ORDERED: OXYC-57 PO (21:46)
--- NOTE | 2016-07-28 21:54 | EMERGENCY ROOM VISIT NOTE ---
History Report prepared by Sarbjit: Vasyl Ardon Under the Supervision of: Dr. Grecia Feliz D.O. First contact with patient: 18:11 Chief Complaint: SWELLING TO EXTREMITY Stated Complaint: DVT History of Present Illness The patient is a 45 year old female who presents to the Emergency Room with complaints of worsening left calf pain beginning this week. She was seen in the ED 3 days ago and was diagnosed with DVT. She has a history factor V and is on Coumadin. The patient states that she has had approximately 13 blood clots in the past. Her INR was therapeutic on her previous visit to the ED. She states that she spoke with her PCP's office two days ago, and was advised to remain on Coumadin. The patient states that her current pain radiates into the back of her thigh, and up to her buttocks and lower back. 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 She notes that she has been taking about 800 mg of Ibuprofen daily for her pain as well, but states that nothing has improved her pain. The patient denies any abdominal pain, chest pain, or neck pain. She notes that she was briefly off of her Coumadin a few weeks ago due to a bout of ulcerative colitis, and feels that this may have been the time that she developed her clots. Source of History: patient Onset: This week Position: leg (left calf) Timing: worsening Modifying Factors (Relieving): other (none) Associated Symptoms: + back pain (radiating from left calf), No abdominal pain, No chest pain, No neck pain Review of Systems See HPI for pertinent positives & negatives. A total of 10 systems reviewed and were otherwise negative. Past Medical & Surgical Medical Problems: (1) Abdominal pain (2) Abdominal pain (3) Abdominal pain (4) Abdominal pain (5) Abdominal pain (6) Acute bronchitis (7) Asthma, Unspecified (8) Bipolar Disorder, Unspecified (9) Cervical strain (10) Closed head injury (11) Common Migraine W/O Intractable Migraine (12) Dehydration (13) Dizziness (14) DVT of lower extremity (deep venous thrombosis) (15) Epilepsy, Unsp, Not Intractable, Without Status Epilepticus (16) Facial laceration (17) Factor V Leiden (18) Factor V Leiden (19) Flank pain (20) GI bleed (21) Kidney stone (22) Kidney stone (23) Leg pain, right (24) 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 Cutter (Current) Use Of 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 (25) Multiple pulmonary emboli (26) Pain, dental (27) Pleuritic chest pain (28) Right leg pain (29) Subtherapeutic international normalized ratio (INR) (30) Subtherapeutic international normalized ratio (INR) Surgical Problems: (1) Tubal Ligation Status Family History FH: cancer Gallbladder disease Kidney disease Kidney stones Social History Smoking Status: Current Some Day Smoker Alcohol Use: none Drug Use: none Marital Status: Housing Status: lives with family Occupation Status: employed Current/Historical Medications Scheduled Albuterol Hfa (Ventolin Hfa), 2 PUFFS INH QID Calcium Carbonate-Vitamin D W/ (Caltrate 600 Plus), 1 TAB PO BID Cholecalciferol (Vitamin D3), 50,000 UNITS PO WK Fluoxetine (Prozac), 20 MG PO DAILY Topiramate (Topamax), 400 MG PO QAM Warfarin Sodium (Coumadin), 5 MG PO 6XWK Warfarin Sodium (Warfarin Sodium), 7.5 MG PO WK Scheduled PRN Hydrocodone/Acetaminophen 5MG/325MG ([place] 5MG/325MG), 1 TAB PO Q8 PRN for Pain Lorazepam (Ativan), 0.5 MG PO Q8 PRN for Anxiety Oxycodone/Acetaminophen 5MG/325MG (Percocet 5MG/325MG), 1 TABLET PO Q4H PRN for Pain Sumatriptan Succinate (Imitrex), 50 MG PO UD PRN for Migraine Allergies Coded Allergies: Morphine (Verified Allergy, Intermediate, chest pain; trouble breathing, ) Chocolate (Verified Allergy, Unknown, 07/25/16) Kiwi (Verified Allergy, Unknown, ANAPHYLAXIS, 07/25/16) Peanut (Verified Allergy, Unknown, 07/25/16) Prochlorperazine (Verified Allergy, Unknown, SEVERE ALLERGIC RXN, 07/25/16) Physical Exam Vital Signs Date Time Temp Pulse Resp B/P Pulse Ox O2 Delivery O2 Flow Rate FiO2 07/28/16 22:06 87 20 109/76 97 07/28/16 20:39 68 18 107/73 97 Room Air 07/28/16 20:11 71 20 113/71 95 Room Air 07/28/16 19:47 71 07/28/16 18:07 36.6 106 20 120/85 98 Room Air Physical Exam General: Tearful. Appears uncomfortable. HEENT: Head - normocephalic and atraumatic Pupils are equal, round, and reactive to light. Extraocular eye muscles are intact, and sclera are anicteric. Nose - moist nasal mucosa without discharge. Mouth - moist buccal mucosa. Oropharynx is nonerythematous and there is no tonsillar exudate or edema noted. Neck: Supple; no JVD, nuchal rigidity, cervical lymphadenopathy. Heart: Regular rate and rhythm. There is a normal S1 and S2 with no murmurs, clicks, or gallops appreciated. Lungs: Clear to auscultation bilaterally with no wheezes, rales, or rhonchi. Abdomen: Soft, completely nontender, nondistended, with good bowel sounds. There are no palpable pulsatile masses or hepatosplenomegaly. There is no guarding, rigidity, or rebound noted. Extremities: There are easily palpable peripheral pulses. Left leg is significantly edematous. Pain to touch over the entire posterior aspect of the left leg. Skin: warm and dry with good turgor and no rashes. Medical Decision & Procedures Laboratory Results 07/28/16 19:15 Test 07/28/16 19:15 07/28/16 20:45 Red Blood Count 4.41 M/uL (4.2-5.4) Mean Corpuscular Volume 96.8 fL (80-100) Mean Corpuscular Hemoglobin 34.9 pg (25-34) Mean Corpuscular Hemoglobin Concent 36.1 g/dl (32-36) RDW Standard Deviation 43.8 fL (36.4-46.3) RDW Coefficient of Variation 12.4 % (11.5-14.5) Mean Platelet Volume 11.1 fL (7.4-10.4) Prothrombin Time 40.1 SECONDS (9.0-12.0) Prothromb Time International Ratio 3.6 (0.9-1.1) Activated Partial Thromboplast Time 34.4 SECONDS (21.0-31.0) Partial Thromboplastin Ratio 1.3 Laboratory results per my review. Medications Administered Medications (Trade) Dose Ordered Sig/Cassy Route Start Time Stop Time Status Last Admin Dose Admin Hydromorphone HCl (Dilaudid Inj) 1 mg NOW STAT IV 07/28/16 18:32 07/28/16 18:34 DC 07/28/16 19:19 1 MG Calcium Carbonate (Tums Chew Tab) 500 mg NOW STAT PO 07/28/16 20:03 07/28/16 20:05 DC 07/28/16 20:15 500 MG Hydromorphone HCl (Dilaudid Inj) 1 mg NOW STAT IV 07/28/16 20:44 07/28/16 20:45 DC 07/28/16 20:58 1 MG Procedure Medications ordered include: Dilaudid IV, Tums Chew Tab PO. ED Course 1813: Past medical records reviewed. The patient was evaluated in room C11B. A complete history and physical exam was performed. 1831: Ordered Dilaudid Inj 1 mg IV. 1929: I reassessed the patient. She states that her leg feels better. We discussed her normal Coumadin dosage. She states that she typically takes 5 mg of Coumadin daily, but states that she took 7.5 mg two days ago, 5 mg yesterday ago, and 7.5 mg today. The patient notes that her INR was found to be 3.2 when she last visited the ED, but dropped to 2.0 the next day when she was seen by her PCP's office. 1999: The patient is complaining of heart burn after drinking a bottle of Mt. Dew and eating a turkey sandwich. 2002: Ordered Tums Chew Tab 500 mg PO. 2029: I spoke with the pharmacist regarding the use of Xarelto. She explained that the patient's INR has to be 3.0 or less for use. 2034: The patient's coagulation studies had to be redrawn. 2043: Ordered Dilaudid Inj 1 mg IV. 2124: Upon reevaluation, the patient is resting comfortably. I discussed findings and results with her. She verbalized agreement of the treatment plan. The patient was discharged home. Medical Decision The patient is a 45 year old female who presents to the ED with left calf pain. Differential diagnosis includes DVT, superficial thrombophlebitis, as well as other etiologies were considered. Laboratory studies: Platelet count of 25. Stable H&H. Normal white count. INR of 3.6. The patient has a history of factor V Leiden deficiency and has had multiple previous DVTs and PEs. The patient takes Coumadin regularly but was noted to have developed acute DVT in the left leg with a therapeutic INR. The recommendation was made here in the emergency Department couple of days ago that the patient should start taking Xarelto and follow-up with hematology. The patient followed up with her primary care doctor they recommended that she not take the Xarelto and continue her Coumadin. The patient was concerned that she had developed a clot while taking Coumadin so she increased her dose of Coumadin over the past couple of days. I was able to get the patient some comfort with regards to the left leg. I discussed the case with her drafter marine as well as Dr. Saleh from coagulation medicine. They both felt that the patient should be started on Xarelto. We will await for 24 hours after the patient's last dose of Coumadin which was earlier this morning. The patient was given a coupon to receive the first months of his relative for free. She will also be followed up with a [facility] case management specialist. [place] Drug Monitoring Program Search Results: patient reviewed within database, no issues identified Consults Time Called: 1934 Consulting Physician: Dr. Geremias Turpin -Hematology Returned Call: 2007 Discussed the patient's case. Dr. Turpin recommends the patient be put on Xarelto. Additional Consults: Time Called: 2104 Consulted Physician: Dr. Saleh -Coagulation Medicine Returned Call: [phone] Additional Comments: Discussed the patient's case. Dr. Saleh recommends that the patient be started on Xarelto 24 hours after her last dose of Coumadin. Impression Primary Impression: Left leg DVT Scribe Attestation The scribe's documentation has been prepared under my direction and personally reviewed by me in its entirety. I confirm that the note above accurately reflects all work, treatment, procedures, and medical decision making performed by me. Departure Information Dispostion Home / Self-Care Prescriptions Oxycodone/Acetaminophen 5MG/325MG (PERCOCET 5MG/325MG) Tab 1 TABLET PO Q4H Y for Pain, #14 TAB Prov: Grecia Feliz D.O. 07/28/16 Referrals Rula Turpin M.D. (PCP) Forms HOME CARE DOCUMENTATION FORM, IMPORTANT VISIT INFORMATION, WORK / SCHOOL INSTRUCTIONS Patient Instructions My [facility] Additional Instructions Stop the coumadin. Start the Xarelto as directed tomorrow. Rest. Percocet - 1 tab. every 4 hours for pain Follow up with [facility] Value Analysis Coordinator and Dr. Turpin Apply warm compresses to left leg
[2016-07-28 22:06] VITALS: BP 109/76; PULSE 87; O2SAT 97
[2016-08-02] MEDS ORDERED: VNTHFA/IN INH (08:18)
[2016-08-02] MEDS ORDERED: HYDR-5688 PO (08:40)
[2016-08-02] MEDS ORDERED: TOPI200T20 PO (14:14)
[2016-08-03] MEDS ORDERED: OXYC-643 PO ×3 (18:13→19:58)
== END 2016-07-28 22:08 | disposition home or self-care (01) ==
LOC: C.EDB 18:04 → C.EDC 22:08
DX: I82.402 Acute embolism and thrombosis of unspecified deep veins of left lower extremity (principal); Z86.711 Personal history of pulmonary embolism; D68.51 Activated protein C resistance; Z79.01 Long term (current) use of anticoagulants; G40.909 Epilepsy, unspecified, not intractable, without status epilepticus; J45.909 Unspecified asthma, uncomplicated; F31.9 Bipolar disorder, unspecified; Z98.51 Tubal ligation status; F17.210 Nicotine dependence, cigarettes, uncomplicated; Z79.899 Other long term (current) drug therapy

== ENCOUNTER 2016-08-02 17:49 | Inpatient (IN) | payer OTHER ==
[~2016-08-02] VITALS: Ht 157.5 cm; Wt 67.9 kg
[~2016-08-02 17:49] MED LIST changes: +HYDR-5688 PO; +OXYC-57 PO; -RIVA1.5T PO; +TOPI200T20 PO; +VNTHFA/IN INH; +WARF-246 PO
[2016-08-02] MEDS ORDERED: SODIUM CHLORIDE 0.9% 1000ML 500 ML IV STA (18:09)
[2016-08-02] MEDS ORDERED: ONDANSETRON INJ 2 MG/ML 2 ML VIAL IV STA (18:09)
[2016-08-02] MEDS ORDERED: LORAZEPAM 2 MG/ML 1 ML VIAL IV STA (18:09)
[2016-08-02] MEDS ORDERED: HYDROmorphone INJ 2 MG/ML SYR/VIAL IV STA (18:09)
--- NOTE | 2016-08-02 18:13 | EMERGENCY ROOM VISIT NOTE ---
History Report prepared by Sarbjit: Bairon Combs Under the Supervision of: Dr. Marcelino Reid M.D. First contact with patient: 18:00 Chief Complaint: RESPIRATORY PROBLEMS Stated Complaint: DVT - SOB, COUGH History of Present Illness The patient is a 45 year old female who presents to the Emergency Room with complaints of persistent coughing and shortness of breath that started last night. The patient states that she was walking to her couch when she started to experience this shortness of breath. Additional associated symptoms include left leg pain, and chest "heaviness." The patient has a history of Factor V Leiden. She takes Coumadin regularly as prescribed. She mentions that she was going to be switched to Xarelto but she could not afford it. The patient has a current DVT in her left leg which was diagnosed on July 25. She returned to the ED on July 28 for worsening left leg pain. The patient has a history of a pulmonary embolism 3 years ago. Source of History: patient Onset: Last night Position: other (Respiratory system ) Timing: other (Persistent ) Modifying Factors (Worsening): other (None) Modifying Factors (Relieving): other (None) Note: Additional associated symptoms include left leg pain and chest "heaviness" Review of Systems See HPI for pertinent positives & negatives. A total of 10 systems reviewed and were otherwise negative. 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 (Current) Use Of 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 (13) Multiple pulmonary emboli (14) Right leg pain (15) Seizure (16) Tobacco abuse Surgical Problems: (1) H/O tubal ligation (2) History of cholecystectomy (3) Hx of tonsillectomy (4) Tubal Ligation Status Family History FH: cancer Gallbladder disease Kidney disease Kidney stones Social History Smoking Status: Current Some Day Smoker Alcohol Use: none Drug Use: none Marital Status: Housing Status: lives with family Occupation Status: employed Current/Historical Medications Scheduled Albuterol Hfa (Ventolin Hfa), 2 PUFFS INH QID Calcium Carbonate-Vitamin D W/ (Caltrate 600 Plus), 1 TAB PO BID Cholecalciferol (Vitamin D3), 50,000 INTER.UNIT PO WK Fluoxetine HCl (Fluoxetine HCl), 20 MG PO QAM Topiramate (Topamax), 400 MG PO QAM Warfarin Sodium (Coumadin), 5 MG PO 5XWK Warfarin Sodium (Coumadin), 7.5 MG PO 2XWK Scheduled PRN Hydrocodone/Acetaminophen 5MG/325MG ([place] 5MG/325MG), 1 TAB PO Q8 PRN for Pain Lorazepam (Lorazepam), 0.5 MG PO Q8 PRN for Anxiety/Insomnia Oxycodone/Acetaminophen 5MG/325MG (Oxycodone/Acetaminophen 5MG/325MG), 1 TAB PO Q4H PRN for Pain Sumatriptan Succinate (Sumatriptan Succinate), 50 MG PO UD PRN for Migraine Allergies Coded Allergies: Morphine (Verified Allergy, Intermediate, chest pain; trouble breathing, ) Chocolate (Verified Allergy, Unknown, 07/25/16) Kiwi (Verified Allergy, Unknown, ANAPHYLAXIS, 07/25/16) Peanut (Verified Allergy, Unknown, 07/25/16) Prochlorperazine (Verified Allergy, Unknown, SEVERE ALLERGIC RXN, 07/25/16) Physical Exam Vital Signs Date Time Temp Pulse Resp B/P Pulse Ox O2 Delivery O2 Flow Rate FiO2 08/02/16 21:30 69 18 120/67 99 08/02/16 21:09 69 18 120/67 99 Room Air 08/02/16 19:24 70 16 106/71 98 Room Air 08/02/16 18:31 74 08/02/16 18:19 98 Room Air 08/02/16 18:11 97 Room Air 08/02/16 17:51 36.5 104 18 101/80 97 Room Air Physical Exam GENERAL: Patient is in no acute distress. HEENT: No acute trauma, normocephalic atraumatic, mucous membranes moist, no nasal congestion, no scleral icterus. NECK: No stridor, no adenopathy, no meningismus, trachea is midline. LUNGS: Clear to auscultation bilaterally, no wheeze, no rhonchi, breath sounds equal. HEART: Tachycardic with regular rhythm, no murmurs. ABDOMEN: Soft, nontender, bowel sounds positive, no hernias, no peritonitis. EXTREMITIES: Left leg edema when compared to right. No cellulitis, no evidence for acute trauma, old bruises to extremities seen. NEUROLOGIC: Oriented x 3, no acute motor or sensory deficits, no focal weakness. SKIN: No rash, no jaundice, no diaphoresis. Medical Decision & Procedures ER Provider Diagnostic Interpretation: CT results and stated below per my review and radiologist interpretation: CT ANGIOGRAM OF THE CHEST CLINICAL HISTORY: Atypical chest pain and shortness of breath. History of DVT. Cough. COMPARISON STUDY: 07/25/2016 TECHNIQUE: Following the IV administration of 116 mL of Optiray-320, CT angiogram of the thorax was performed from the thoracic inlet to the lung bases utilizing the pulmonary embolus protocol. Images are reviewed in the axial, sagittal, and coronal planes. IV contrast was administered without complication. MIP imaging was performed. CT DOSE: 248.18 mGy.cm FINDINGS: Several upper pole left renal calculi are visualized. The gallbladder surgically absent. No pathologically enlarged axillary mediastinal or hilar lymph nodes were visualized. There was no evidence of thoracic aortic dilatation. There were no pulmonary artery filling defects to indicate acute pulmonary embolism. No pleural effusions are visualized. There was no evidence of focal pulmonary consolidation. There is a 3.5 mm right lower lobe pulmonary nodule as visualized in image #[id number]. There is a 4 mm perifissural right lower lobe pulmonary nodule as visualized in image #136/301. There is a 2 mm right upper lobe pulmonary nodule as visualized in image #241/301. IMPRESSION: 1. No CT evidence of acute pulmonary embolism 2. No evidence of focal pulmonary consolidation. 3. Subcentimeter right lung pulmonary nodules, the largest of which measures 4 mm. Follow-up per Fleischner criteria is recommended Please refer to below summary of Fleischner criteria recommendations for follow-up of incidental CT nodules (Yonny Calzada, Guidelines for management of small pulmonary nodules detected on CT scans: A statement from the Fleischner Society, Radiology 237: [phone].) Low Risk Patient: Minimal or no smoking or other known risk factors for malignancy <=4 mm: No follow-up needed. >4-6 mm: Initial follow-up CT at 12 months; if unchanged, no further follow-up. >6-8 mm: Initial follow-up CT at 6-12 months then at 18-24 months if no change. >8 mm: Follow-up CT at \\R\\3, 9, 24 months, or PET and/or biopsy. High Risk Patient: History of smoking or other known risk factors <=4 mm: Follow-up at 12 months; if unchanged, no further follow-up. >4-6 mm: Initial follow-up CT at 6-12 months then at 18-24 months if no change. >6-8 mm: Initial follow-up CT at 3-6 months then at 9-12 and 24 months if no change. >8 mm: Same as low risk patient. Note: Nodule size measured as average of length and width. Ground glass or partly solid nodules may require longer follow-up to exclude indolent adenocarcinoma. Electronically signed by: Dae Davis M.D. 08/02/2016 7:48 PM Dictated Date/Time: 08/02/2016 7:39 PM Laboratory Results 08/02/16 18:20 Red Blood Count 4.46, Mean Corpuscular Volume 95.5, Mean Corpuscular Hemoglobin 33.9, Mean Corpuscular Hemoglobin Concent 35.4, Mean Platelet Volume 10.0, Neutrophils (%) (Auto) 65.0, Lymphocytes (%) (Auto) 21.4, Monocytes (%) (Auto) 10.0, Eosinophils (%) (Auto) 3.0, Basophils (%) (Auto) 0.3, Neutrophils # (Auto ) 4.55, Lymphocytes # (Auto) 1.50, Monocytes # (Auto) 0.70, Eosinophils # (Auto ) 0.21, Basophils # (Auto) 0.02 08/02/16 18:20 Test 08/02/16 18:20 White Blood Count 7.00 K/uL (4.8-10.8) Red Blood Count 4.46 M/uL (4.2-5.4) Hemoglobin 15.1 g/dL (12.0-16.0) Hematocrit 42.6 % (37-47) Mean Corpuscular Volume 95.5 fL (80-100) Mean Corpuscular Hemoglobin 33.9 pg (25-34) Mean Corpuscular Hemoglobin Concent 35.4 g/dl (32-36) Platelet Count 184 K/uL (130-400) Mean Platelet Volume 10.0 fL (7.4-10.4) Neutrophils (%) (Auto) 65.0 % Lymphocytes (%) (Auto) 21.4 % Monocytes (%) (Auto) 10.0 % Eosinophils (%) (Auto) 3.0 % Basophils (%) (Auto) 0.3 % Neutrophils # (Auto) 4.55 K/uL (1.4-6.5) Lymphocytes # (Auto) 1.50 K/uL (1.2-3.4) Monocytes # (Auto) 0.70 K/uL (0.11-0.59) Eosinophils # (Auto) 0.21 K/uL (0-0.5) Basophils # (Auto) 0.02 K/uL (0-0.2) RDW Standard Deviation 42.8 fL (36.4-46.3) RDW Coefficient of Variation 12.5 % (11.5-14.5) Immature Granulocyte % (Auto) 0.3 % Immature Granulocyte # (Auto) 0.02 K/uL (0.00-0.02) Prothrombin Time 34.8 SECONDS (9.0-12.0) Prothromb Time International Ratio 3.1 (0.9-1.1) Activated Partial Thromboplast Time 37.6 SECONDS (21.0-31.0) Partial Thromboplastin Ratio 1.4 Anion Gap 11.0 mmol/L (3-11) Est Creatinine Clear Calc Drug Dose 83.0 ml/min Estimated GFR () 106.3 Estimated GFR (Non- 91.7 BUN/Creatinine Ratio 24.3 (10-20) Calcium Level 9.0 mg/dl (8.5-10.1) Troponin I < 0.015 ng/ml (0-0.045) Laboratory results reviewed by me. Medications Administered Medications (Trade) Dose Ordered Sig/Cassy Route Start Time Stop Time Status Last Admin Dose Admin Sodium Chloride (Nss 1000ml) 500 ml @ 999 mls/hr Q31M STAT IV 08/02/16 18:09 08/02/16 18:39 DC 08/02/16 18:09 999 MLS/HR Ondansetron HCl (Zofran Inj) 4 mg NOW STAT IV 08/02/16 18:09 2/8/17 18:13 DC 08/02/16 18:27 4 MG Hydromorphone HCl (Dilaudid Inj) 1 mg NOW STAT IV 08/02/16 18:09 08/02/16 18:13 DC 08/02/16 18:28 1 MG Lorazepam (Ativan Inj) 0.5 mg NOW STAT IV 08/02/16 18:09 08/02/16 18:13 DC 08/02/16 18:29 0.5 MG ED Course 1800: The patient was evaluated in room A2. A complete history and physical exam was performed. 1808: Ordered Ativan Injection 0.5 mg IV, Dilaudid Injection 1 mg IV, Zofran Injection 4 mg IV, Sodium Chloride 500 ml @ 999 mls/hr IV. 2013: Discussed the patient's case with Dr. Man ([facility]). The patient will be evaluated for further management. 2020: I updated the patient on the treatment plan. She is agreeable at this time. Medical Decision Differential diagnosis includes but is not limited to DVT, pulmonary embolism, bronchitis, pneumonia, CHF, pneumothorax, cardiac ischemia, anemia, anxiety, failed outpatient treatment There is no leukocytosis or concerning anemia. No significant electrolyte abnormality or kidney failure. INR is 3.1, this is consistent with her Coumadin use. EKG showed a sinus rhythm, no acute ischemia. Cardiac enzyme testing 1 is not consistent with acute cardiac injury. Chest CT does not show evidence for acute PE. The patient presents with a left leg DVT which is not improving on oral Coumadin. She actually developed the DVT while taking Coumadin. She is now here for the third time over the last week because of symptoms including pain in the left leg and now some shortness of breath. The patient was given IV Ativan, IV Dilaudid and IV Zofran. She received IV saline. The patient looks improved, she feels better. I do think she is failing outpatient treatment for her DVT. Admission/observation is warranted. I spoke to the patient and case management. The on-call hospitalist was consulted. Consults Time Called: 1955 Consulting Physician: Dr. Man ([facility]) Returned Call: 2013 Discussed the patient's case with Dr. Man ([facility]). The patient will be evaluated for further management. Impression Primary Impression: Shortness of breath Additional Impressions: Left leg DVT Failure of outpatient treatment Scribe Attestation The scribe's documentation has been prepared under my direction and personally reviewed by me in its entirety. I confirm that the note above accurately reflects all work, treatment, procedures, and medical decision making performed by me. Departure Information Dispostion Being Evaluated By Hospitalist Referrals Rula Turpin M.D. (PCP) Patient Instructions My [facility] Problem Qualifiers
[2016-08-02] MEDS ORDERED: OPTIRAY 320 IV PRN (18:30)
[2016-08-02 18:37] LABS: BASO % 0.3 %; BASO ABS # 0.02 K/uL (0-0.2); COMPLETE YES; HEMATOCRIT 42.6 % (37-47); IG% 0.3 %; LYMPH % 21.4 %; MEAN CELL VOLUME 95.5 fL (80-100); MEAN CORPUSCULAR HEMOGLOBIN 33.9 pg (25-34); MEAN CORPUSCULAR HGB CONC 35.4 g/dl (32-36); PLATELET COUNT 184 K/uL (130-400); RED BLOOD COUNT 4.46 M/uL (4.2-5.4)
[2016-08-02] MEDS ORDERED: OXYC-643 PO (18:41)
[2016-08-02] MEDS ORDERED: FLUO20CA36 PO (18:41)
[2016-08-02] MEDS ORDERED: ATV5X PO (18:41)
[2016-08-02] MEDS ORDERED: WARF5TAB90 PO ×2 (18:41→20:00)
[2016-08-02] MEDS ORDERED: CALCTAB7 PO (18:43)
[2016-08-02] MEDS ORDERED: CHOL1CAP95 PO (18:43)
[2016-08-02] MEDS ORDERED: IMT50 PO (18:45)
[2016-08-02 18:52] LABS: BLOOD UREA NITROGEN 19 mg/dl (7-18); BUN/CREATININE RATIO 24.3 (10-20); CARBON DIOXIDE 19 mmol/L (21-32); CHLORIDE 111 mmol/L (98-107); CREATININE 0.79 mg/dl (0.60-1.20); GLUCOSE 97 mg/dl (70-99); POTASSIUM 3.7 mmol/L (3.5-5.1); SODIUM 141 mmol/L (136-145)
[2016-08-02 18:57] LABS: INR 3.1 (0.9-1.1); PARTIAL THROMBOPLASTIN RATIO 1.4; PROTHROMBIN TIME (PATIENT) 34.8 SECONDS (9.0-12.0)
--- NOTE | 2016-08-02 19:50 | DIAGNOSTIC IMAGING REPORT ---
CT ANGIOGRAM OF THE CHEST CLINICAL HISTORY: Atypical chest pain and shortness of breath. History of DVT. Cough. COMPARISON STUDY: 07/25/2016 TECHNIQUE: Following the IV administration of 116 mL of Optiray-320, CT angiogram of the thorax was performed from the thoracic inlet to the lung bases utilizing the pulmonary embolus protocol. Images are reviewed in the axial, sagittal, and coronal planes. IV contrast was administered without complication. MIP imaging was performed. CT DOSE: 248.18 mGy.cm FINDINGS: Several upper pole left renal calculi are visualized. The gallbladder surgically absent. No pathologically enlarged axillary mediastinal or hilar lymph nodes were visualized. There was no evidence of thoracic aortic dilatation. There were no pulmonary artery filling defects to indicate acute pulmonary embolism. No pleural effusions are visualized. There was no evidence of focal pulmonary consolidation. There is a 3.5 mm right lower lobe pulmonary nodule as visualized in image #144/301. There is a 4 mm perifissural right lower lobe pulmonary nodule as visualized in image #136/301. There is a 2 mm right upper lobe pulmonary nodule as visualized in image #241/301. IMPRESSION: 1. No CT evidence of acute pulmonary embolism 2. No evidence of focal pulmonary consolidation. 3. Subcentimeter right lung pulmonary nodules, the largest of which measures 4 mm. Follow-up per Fleischner criteria is recommended Please refer to below summary of Fleischner criteria recommendations for follow-up of incidental CT nodules (Yonny Calzada, Guidelines for management of small pulmonary nodules detected on CT scans: A statement from the Fleischner Society, Radiology 237: [phone].) Low Risk Patient: Minimal or no smoking or other known risk factors for malignancy <=4 mm: No follow-up needed. >4-6 mm: Initial follow-up CT at 12 months; if unchanged, no further follow-up. >6-8 mm: Initial follow-up CT at 6-12 months then at 18-24 months if no change. >8 mm: Follow-up CT at \R\3, 9, 24 months, or PET and/or biopsy. High Risk Patient: History of smoking or other known risk factors <=4 mm: Follow-up at 12 months; if unchanged, no further follow-up. >4-6 mm: Initial follow-up CT at 6-12 months then at 18-24 months if no change. >6-8 mm: Initial follow-up CT at 3-6 months then at 9-12 and 24 months if no change. >8 mm: Same as low risk patient. Note: Nodule size measured as average of length and width. Ground glass or partly solid nodules may require longer follow-up to exclude indolent adenocarcinoma. Electronically signed by: Dae Davis M.D. 08/02/2016 7:48 PM Dictated Date/Time: 08/02/2016 7:39 PM
[2016-08-02] MEDS ORDERED: LORAZEPAM 0.5 MG TAB PO PRN (20:30)
[2016-08-02] MEDS ORDERED: HYDROmorphone INJ 2 MG/ML SYR/VIAL IV PRN (20:30)
[2016-08-02] MEDS ORDERED: ONDANSETRON INJ 2 MG/ML 2 ML VIAL IV PRN (20:30)
[2016-08-02] MEDS ORDERED: ZOLPIDEM TARTRATE 5 MG TAB PO PRN (20:30)
[2016-08-02] MEDS ORDERED: ALUMINUM/MAGNESIUM/SIMETH (MAALOX MAX) 30 ML UDC PO PRN (20:30)
[2016-08-02] MEDS ORDERED: SUMATRIPTAN SUCCINATE 50 MG TAB PO PRN (20:30)
[2016-08-02] MEDS ORDERED: ACETAMINOPHEN 325 MG TAB PO PRN (20:30)
[2016-08-02] MEDS ORDERED: HYDROCODONE/ACETAMOPHEN 5/325MG TAB PO PRN (20:30)
[2016-08-02] MEDS ORDERED: MAGNESIUM HYDROXIDE SUSP 30 ML UDC PO PRN (20:30)
[2016-08-02] MEDS ORDERED: POLYETHYLENE (MIRALAX) 17 GM PACK PO PRN (20:45)
--- NOTE | 2016-08-02 21:02 | History and Physical ---
History & Physical Date & Time of Service: Aug 02, 2016 at 20:46 Chief Complaint: Dvt - Sob, Cough Primary Care Physician: Rula Turpin M.D. History of Present Illness Source: patient, family, clinic records, hospital records Patient seen and examined. 45 year old female with PMHx of Factor V on life long Coumadin, Seizures, Depression and tobacco abuse presents to the ED with SOB, cough and increase Left leg pain x 1 day. Patient has been to the ED several times over the last week and was diagnosed with an extensive LLE DVT despite being on Coumadin. The ED physician touched base with patient's PCP who stated the patient has a history of noncompliance with Coumadin and many subtheraputic INRs and suggested the patient be started on Xarelto. Patient was discharged home and followed up with a different provider who suggested the patient continue on Coumadin but with an INR goal range of 2.5-3.5 Patient returned to the ED with increased pain and was again suggested to start Xarelto and was given coupons to help alleviate cost concerns. Patient did not start Xarelto. She returns to the ED today complaining of a dry cough. She reports shortness of breath with minimal exertion and occasional chest pressure. She states she has constant pain in her LLE from "toes to groin" That she describes as sharp and tight and rates as a 10/10. She denies fevers, chills, chest pain, palpitations, nausea, vomiting ,diarrhea, dysuria. She states she is compliant was Coumadin and gets angry when people don't believe her. In the ED VS are stable, INR is 3.1. CTA is negative for PE. She will be admitted for further workup and treatment. 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 Of 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 Status: Chronic (13) Multiple pulmonary emboli Status: Resolved (14) Right leg pain Status: Resolved (15) Seizure Status: Chronic (16) Tobacco abuse Status: Chronic Surgical Problems: (1) H/O tubal ligation Status: Chronic (2) History of cholecystectomy Status: Chronic (3) Hx of tonsillectomy Status: Chronic (4) Tubal Ligation Status Status: Resolved Family History FH: cancer Gallbladder disease Kidney disease Kidney stones Social History Smoking Status: Current Some Day Smoker Alcohol Use: none Drug Use: none Marital Status: Housing status: lives with family Occupational Status: employed Immunizations History of Influenza Vaccine: Unknown History of Tetanus Vaccine?: Unknown History of Pneumococcal: No History of Hepatitis B Vaccine: Unknown Multi-Drug Resistant Organisms History of MDRO: No Allergies Coded Allergies: Morphine (Verified Allergy, Intermediate, chest pain; trouble breathing, ) Chocolate (Verified Allergy, Unknown, 07/25/16) Kiwi (Verified Allergy, Unknown, ANAPHYLAXIS, 07/25/16) Peanut (Verified Allergy, Unknown, 07/25/16) Prochlorperazine (Verified Allergy, Unknown, SEVERE ALLERGIC RXN, 07/25/16) Home Medications Scheduled Albuterol Hfa (Ventolin Hfa), 2 PUFFS INH QID Calcium Carbonate-Vitamin D W/ (Caltrate 600 Plus), 1 TAB PO BID Cholecalciferol (Vitamin D3), 50,000 INTER.UNIT PO WK Fluoxetine HCl (Fluoxetine HCl), 20 MG PO QAM Topiramate (Topamax), 400 MG PO QAM Warfarin Sodium (Coumadin), 5 MG PO 5XWK Warfarin Sodium (Coumadin), 7.5 MG PO 2XWK Scheduled PRN Hydrocodone/Acetaminophen 5MG/325MG (Clayton 5MG/325MG), 1 TAB PO Q8 PRN for Pain Lorazepam (Lorazepam), 0.5 MG PO Q8 PRN for Anxiety/Insomnia Oxycodone/Acetaminophen 5MG/325MG (Oxycodone/Acetaminophen 5MG/325MG), 1 TAB PO Q4H PRN for Pain Sumatriptan Succinate (Sumatriptan Succinate), 50 MG PO UD PRN for Migraine Review of Systems See above for pertinent positives & negatives. A total of 10 systems reviewed and were otherwise negative. Physical Exam Vital Signs Date Time Temp Pulse Resp B/P Pulse Ox O2 Delivery O2 Flow Rate FiO2 08/02/16 19:24 70 16 106/71 98 Room Air 08/02/16 18:31 74 08/02/16 18:19 98 Room Air 08/02/16 18:11 97 Room Air 08/02/16 17:51 36.5 104 18 101/80 97 Room Air General Appearance: + pertinent finding (WD/wN 45 year old female lying in bed in NAD with daughters at bedside ) Head: normocephalic, atraumatic Eyes: PERRL, EOMI, sclerae normal ENT: hearing grossly normal, pharynx normal Neck: supple, no JVD Respiratory/Chest: chest non-tender, lungs clear, normal breath sounds, no respiratory distress, no accessory muscle use Cardiovascular: regular rate, rhythm, no gallop, no JVD, no murmur, normal peripheral pulses Abdomen/GI: normal bowel sounds, non tender, soft Back: normal inspection, no muscle spasm Extremities/Musculoskelatal: normal capillary refill, + calf tenderness (Left ) , + pedal edema (L>R,) Skin: normal color, warm/dry, no rash Lymphatic: no adenopathy Diagnostics Laboratory Results Results Past 24 Hours Test 08/02/16 18:20 Range/Units White Blood Count 7.00 4.8-10.8 K/uL Red Blood Count 4.46 4.2-5.4 M/uL Hemoglobin 15.1 12.0-16.0 g/dL Hematocrit 42.6 37-47 % Mean Corpuscular Volume 95.5 80-100 fL Mean Corpuscular Hemoglobin 33.9 25-34 pg Mean Corpuscular Hemoglobin Concent 35.4 32-36 g/dl Platelet Count 184 130-400 K/uL Mean Platelet Volume 10.0 7.4-10.4 fL Neutrophils (%) (Auto) 65.0 % Lymphocytes (%) (Auto) 21.4 % Monocytes (%) (Auto) 10.0 % Eosinophils (%) (Auto) 3.0 % Basophils (%) (Auto) 0.3 % Neutrophils # (Auto) 4.55 1.4-6.5 K/uL Lymphocytes # (Auto) 1.50 1.2-3.4 K/uL Monocytes # (Auto) 0.70 0.11-0.59 K/uL Eosinophils # (Auto) 0.21 0-0.5 K/uL Basophils # (Auto) 0.02 0-0.2 K/uL RDW Standard Deviation 42.8 36.4-46.3 fL RDW Coefficient of Variation 12.5 11.5-14.5 % Immature Granulocyte % (Auto) 0.3 % Immature Granulocyte # (Auto) 0.02 0.00-0.02 K/uL Prothrombin Time 34.8 9.0-12.0 SECONDS Prothromb Time International Ratio 3.1 0.9-1.1 Activated Partial Thromboplast Time 37.6 21.0-31.0 SECONDS Partial Thromboplastin Ratio 1.4 Sodium Level 141 136-145 mmol/L Potassium Level 3.7 3.5-5.1 mmol/L Chloride Level 111 98-107 mmol/L Carbon Dioxide Level 19 21-32 mmol/L Anion Gap 11.0 3-11 mmol/L Blood Urea Nitrogen 19 7-18 mg/dl Creatinine 0.79 0.60-1.20 mg/dl Est Creatinine Clear Calc Drug Dose 83.0 ml/min Estimated GFR () 106.3 Estimated GFR (Non- 91.7 BUN/Creatinine Ratio 24.3 10-20 Random Glucose 97 70-99 mg/dl Calcium Level 9.0 8.5-10.1 mg/dl Troponin I < 0.015 0-0.045 ng/ml Diagnostic Radiology CTA CHEST Per radiologist read: IMPRESSION: 1. No CT evidence of acute pulmonary embolism 2. No evidence of focal pulmonary consolidation. 3. Subcentimeter right lung pulmonary nodules, the largest of which measures 4 mm. Follow-up per Fleischner criteria is recommended Please refer to below summary of Fleischner criteria recommendations for follow-up of incidental CT nodules (Yonny Calzada, Guidelines for management of small pulmonary nodules detected on CT scans: A statement from the Fleischner Society, Radiology 237: [phone].) Low Risk Patient: Minimal or no smoking or other known risk factors for malignancy <=4 mm: No follow-up needed. >4-6 mm: Initial follow-up CT at 12 months; if unchanged, no further follow-up. >6-8 mm: Initial follow-up CT at 6-12 months then at 18-24 months if no change. >8 mm: Follow-up CT at \\R\\3, 9, 24 months, or PET and/or biopsy. High Risk Patient: History of smoking or other known risk factors <=4 mm: Follow-up at 12 months; if unchanged, no further follow-up. >4-6 mm: Initial follow-up CT at 6-12 months then at 18-24 months if no change. >6-8 mm: Initial follow-up CT at 3-6 months then at 9-12 and 24 months if no change. >8 mm: Same as low risk patient. Note: Nodule size measured as average of length and width. Ground glass or partly solid nodules may require longer follow-up to exclude indolent adenocarcinoma. EKG NSR 77 BPM, QTc 424, no acute ischemic changes noted. Impression Assessment and Plan 45 year old female with history of Factor V presents to the ED complaining of SOB and increased Left leg pain, has known LLE DVT RECURRENT DVT, H/o Factor V -admit to tele -continue Coumadin INR 3.1 -Hematology consult placed for recommendations for chronic anticoagulation -Repeat Doppler US to assess changes in DVT -prn pain control -monitor in tele for signs of PE -CBC, PRP, Mg daily SHORTNESS OF BREATH -CTA negative for PE, troponin negative -monitor in tele -check Echo -continue home inhaler prn H/O SEIZURES -continue Topamax TOBACCO ABUSE -Cessation counseling given -Nicotine patch ordered DEPRESSION -continue Prozac, Ativan LUNG NODULE -incidental finding on CTA -followup with PCP DVT PROPHYLAXIS: Coumadin CODE STATUS: FULL CODE DISPO:In my clinical judgment this beneficiary meets acute admission criteria, established by [facility], that includes being hospitalized through two midnights. Patient seen in collaboration with Dr. Barrera ATTENDING NOTE : pt seen and examined , care co ordinated with Raisa AUSTIN images and lab reviewed 45 yo F with medical hx of Factor V Leiden , Heterozygous mutation , Dx at age 18 when she had Ist episode of left lower ext DVT ( was on control pill ) -has been off control pill since , treated with Coumadin for 6 months recent admission at [facility] on 06/24/16 with chest pain /lower ext pain -swelling Scans showed no evidence of PE , lower ext Doppler -acute and subacute DVT involving left lower ext with involvement of common femoral , superficial femoral and popiteal vein pt was discharged home on Coumadin had multiple ER visits in past 1 week with worsening of SOB , lower ext pain / discomfort CTA of chest : shows no evidence of PE , Subcentimeter right lung pulmonary nodules, the largest of which measures 4 mm. Follow-up in 12 months per Fleischner criteria is recommended P/E: no evidence of any distress , comfortable HEENT : sclera non icteric LUNGS: CTA HT: regular S1/S2 Abdomen : soft , non tender Ext: no lower ext edema , no calf tenderness Neuro: no focal deficit HX OF RECURRENT LOWER EXT DVT /FACTOR V LEIDEN MUTATION ( HETEROZYGOUS ) -INR therapeutic > 3 -CTA of chest negative for PE -pt will be continued with Coumadin -concern for questionable compliance with Coumadin causing recurrent episodes of thrombosis-while on anticoagulation -mentions she took herself off Coumadin for 4 days on May 2016 for concern for lower GI bleed , when last episode of left lower ext DVT occurred -offered for trial with Xarelto -pt does not have insurance coverage for that -follows with Heme onc Dr Geremias Turpin -Heme onc consult requested -pt is counselled for importance of compliance , will need life long anticoagulation ( multiple episodes of DVT in past ; bilat PE on 06/2013 ) , hypercoagulable status with factor v mutation -pt is counselled for smoking cessation to reduce thromboembolic risk SOB: -no evidence of hypoxia , adequate oxygenation in RA -vitals stable , no tachycardia -CTA of chest negative for PE -possible anxiety related -symptom has resolved in ED -PRN Ativan -ECHO to assess LV function /with bubble contrast to assess PFO Last ECHO 06/2013 : normal LV function ; EF 60-65 % , normal RV cavity , no evidence of pulmonary HTN trace tricuspid regurgitation , mild mitral regurgitation LUNG NODULE : -incidental finding of 4 mm rt lung nodule -pt continues to smoke -follow up CT chest with contrast in 12 months for surveillance Rest of the Problem list and assessment as outlined by Raisa AUSTIN as above DISPOSITION ; expected to discharge home when medically stable Medicine follow up with Dr Rula Conde Onc follow up with Dr Geremias Turpin VTE Prophylaxis VTE Risk Assessment Done? Y/N: Yes Risk Level: High Additional Copies To Geremias Turpin M.D. Patel, Manisha N., M.D.
[2016-08-02 21:30] VITALS: O2SAT 99
--- NOTE | 2016-08-02 22:10 | DIAGNOSTIC IMAGING REPORT ---
ULTRASOUND VENOUS DOPPLER LWR EXT BILA CLINICAL HISTORY: Leg pain and swelling. History of DVT. COMPARISON STUDY: 07/25/2016 FINDINGS: On the right, no intraluminal thrombus was visualized. The common femoral, superficial femoral and popliteal veins were fully compressible. There was limited visualization the right calf veins, but no thrombus was delineated. On the left, there is nonocclusive thrombus within the common femoral and superficial femoral veins. There is thrombus within the profunda vein and greater saphenous vein. There is also a superficial thrombosed varicosities. IMPRESSION: 1. Acute and chronic DVT within the left lower extremity. The findings remain similar to the preceding July 25, 2016 study 2. No evidence of right lower extremity DVT Electronically signed by: Dae Davis M.D. 08/02/2016 10:08 PM Dictated Date/Time: 08/02/2016 10:05 PM
[2016-08-02] MEDS ORDERED: ALBUT/IPRATROP 3MG/0.5MG NEB 3 ML VIAL INH PRN (23:00)
[2016-08-02 23:55] VITALS: BP 102/70; PULSE 66; TEMP 36.5; O2SAT 96
[2016-08-03] MEDS: CALCIUM 600MG + VIT D 400 IU TAB PO SCH ×2 (00:12→08:16)
[2016-08-03] MEDS: ALBUTEROL HFA 8 GM INHALER INH SCH ×4 (00:13→15:41)
[2016-08-03] MEDS: SODIUM CHLORIDE 0.9% 1000ML 1,000 ML IV SCH ×2 (00:14→11:28)
[2016-08-03] MEDS: OXYCODONE/ACETAMINOPHEN 5-325 TAB PO PRN ×3 (00:21→15:40)
[2016-08-03 02:50] VITALS: BP 102/70; PULSE 66; TEMP 36.5; Ht 157.5 cm; Wt 67.9 kg
[2016-08-03] MEDS: HYDROmorphone INJ 1 MG/ML SYR IV PRN ×4 (03:11→16:16)
[2016-08-03 07:01] VITALS: BP 104/69; PULSE 67; TEMP 36.4; O2SAT 95
[2016-08-03 07:22] LABS: HEMATOCRIT 40.6 % (37-47); MEAN CELL VOLUME 97.6 fL (80-100); MEAN CORPUSCULAR HEMOGLOBIN 33.9 pg (25-34); MEAN CORPUSCULAR HGB CONC 34.7 g/dl (32-36); MEAN PLATELET VOLUME 9.9 fL (7.4-10.4); PLATELET COUNT 175 K/uL (130-400); RED BLOOD COUNT 4.16 M/uL (4.2-5.4); WHITE BLOOD COUNT 7.06 K/uL (4.8-10.8)
[2016-08-03 07:29] LABS: INR 3.9 (0.9-1.1); PROTHROMBIN TIME (PATIENT) 43.6 SECONDS (9.0-12.0)
[2016-08-03] MEDS ORDERED: TOPIRAMATE 100 MG TAB PO SCH (09:00)
[2016-08-03] MEDS ORDERED: NICOTINE 14 MG/24 HR TDSY TD SCH (09:00)
[2016-08-03] MEDS ORDERED: FLUOXETINE HCL 20 MG CAP PO SCH (09:00)
--- NOTE | 2016-08-03 12:36 | ECHOCARDIOGRAM REPORT ---
*NOTICE TO RECEIVING DEMOCRAT AGENCY This information is strictly Confidential and protected under [place] law. [place] law prohibits you from making any further disclosure of this information unless further disclosure is expressly permitted by the written consent of the person to whom it pertains or is authorized by law. A general authorization for the release of medical or other information is not sufficient for this purpose. Hospital accepts no responsibility if the information is made available to any other person, INCLUDING THE PATIENT. Interpretation Summary * Name: DEVIN SIFUENTES Study Date: 08/03/2016 11:18 AM BP: 104/69 mmHg * [facility] HR: 67 * : 1970 (M/d/yyyy) Gender: Female Height: 62 in * Age: 45 yrs Ethnicity: CA Weight: 149 lb * Ordering Physician: Raisa Hurtado * Referring Physician: Self, Referred * Performed By: Leilani Green RCS * * Reason For Study: Chest Pain * BSA: 1.7 m2 * -- Conclusions -- * Normal LV chamber size and wall thickness. * Normal LV systolic function, EF 65-70%. * No segmental left ventricular wall motion abnormalities are noted. * Normal diastolic dysfunction. * The right ventricular cavity size is normal (basal dimension <4.2 cm in right ventricular apical 4-chamber view). Normal RV systolic function by TAPSE. * Trace mitral regurgitation. Procedure Details * A complete two-dimensional transthoracic echocardiogram was performed (2D, M-mode, Doppler and color flow Doppler). Left Ventricle * The left ventricle is normal in size. * There is normal left ventricular wall thickness. * Ejection Fraction = 65-70%. * Left ventricular systolic function is normal. * No segmental left ventricular wall motion abnormalities are noted. * The left ventricular wall motion is normal. Right Ventricle * The right ventricular cavity size is normal (basal dimension <4.2 cm in right ventricular apical 4-chamber view). * The right ventricular systolic function is normal as assessed by tricuspid annular plane systolic excursion (TAPSE) (normal >1.5 cm). Atria * The left atrial size is normal. * Right atrial size is normal. * No ASD detected; PFO is not assessed. Mitral Valve * The mitral valve anatomy is normal. * There is no mitral valve stenosis. * There is trace mitral regurgitation. Tricuspid Valve * The tricuspid valve is normal in structure and function. Aortic Valve * The aortic valve is normal in structure and function. Pulmonic Valve * The pulmonary valve is not well seen, but the Doppler examination is normal without significant regurgitation or stenosis. Great Vessels * The aortic root is normal size. Pericardium/Pleural * There is no pericardial effusion. Left Ventricular Diastolic Function * Pulse wave TDI of the anterior and posterior mitral annulas demonstrates normal LV relaxation MMode 2D Measurements and Calculations IVSd 0.94 cm IVSs 1.1 cm LVIDd 4.5 cm LVIDs 2.8 cm LVPWd 0.92 cm LVPWs 1.1 cm IVS/LVPW 1.0 FS 38.3 % EDV(Teich) 94.4 ml ESV(Teich) 29.6 ml EF(Teich) 68.6 % EDV(cubed) 93.6 ml ESV(cubed) 22.0 ml EF(cubed) 76.5 % % IVS thick 20.2 % % LVPW thick 18.8 % LV mass(C)d 141.7 grams LV mass(C)dI 84.0 grams/m\S\2 LV mass(C)s 88.6 grams LV mass(C)sI 52.5 grams/m\S\2 CO(Teich) 4.2 l/min CI(Teich) 2.5 l/min/m\S\2 SV(Teich) 64.8 ml SI(Teich) 38.4 ml/m\S\2 CO(cubed) 4.7 l/min CI(cubed) 2.8 l/min/m\S\2 SV(cubed) 71.6 ml SI(cubed) 42.4 ml/m\S\2 Ao root diam 2.9 cm Ao root area 6.6 cm\S\2 ACS 1.4 cm LA dimension 3.0 cm LA/Ao 1.0 LVAd ap4 23.2 cm\S\2 LVLd ap4 7.5 cm EDV(MOD-sp4) 60.0 ml LVAs ap4 12.0 cm\S\2 LVLs ap4 6.2 cm ESV(MOD-sp4) 20.0 ml EF(MOD-sp4) 66.7 % LVAd ap2 22.5 cm\S\2 LVLd ap2 7.5 cm EDV(MOD-sp2) 56.0 ml LVAs ap2 10.7 cm\S\2 LVLs ap2 5.9 cm ESV(MOD-sp2) 16.0 ml EF(MOD-sp2) 71.4 % CO(MOD-sp4) 2.6 l/min CI(MOD-sp4) 1.5 l/min/m\S\2 SV(MOD-sp4) 40.0 ml SI(MOD-sp4) 23.7 ml/m\S\2 CO(MOD-sp2) 2.6 l/min CI(MOD-sp2) 1.5 l/min/m\S\2 SV(MOD-sp2) 40.0 ml SI(MOD-sp2) 23.7 ml/m\S\2 Doppler Measurements and Calculations MV E max carmel 85.6 cm/sec MV A max carmel 52.8 cm/sec MV E/A 1.6 MV P1/2t max carmel 94.1 cm/sec MV P1/2t 83.5 msec MVA(P1/2t) 2.6 cm\S\2 MV dec slope 330.1 cm/sec\S\2 MV dec time 0.24 sec Ao V2 max 97.7 cm/sec Ao max PG 3.8 mmHg Ao max PG (full) 0.89 mmHg LV V1 max PG 2.9 mmHg LV V1 max 85.6 cm/sec PA V2 max 89.9 cm/sec PA max PG 3.3 mmHg TR max carmel 217.2 cm/sec
[2016-08-03 15:48] VITALS: BP 94/60; PULSE 85; TEMP 36.7; O2SAT 96
[2016-08-03] MEDS ORDERED: WARFARIN SOD 5 MG TAB PO SCH (16:00)
[2016-08-03] MEDS ORDERED: OXYC-643 PO ×3 (18:13→19:58)
--- NOTE | 2016-08-03 18:16 | Discharge Instructions ---
Discharge Instructions Admission Reason for Admission: Failure Of Outpatient Treatment, Left Leg Dvt Discharge Discharge Diagnosis / Problem: Left leg DVT Discharge Goals Goal(s): Improve disease control Activity Recommendations Activity Limitations: resume your previous activity . Instructions / Follow-Up Instructions / Follow-Up Please follow up with Family Medicine Dr. Turpin on August 07 at 11:10am. You will need to discuss any potential changes in your pain medication with Dr. Turpin. You will be contacted by the anticoagulation clinic regarding follow up. Please resume your home Coumadin dosing tomorrow. Current Hospital Diet Patient's current hospital diet: Regular Diet Discharge Diet Recommended Diet: Regular Diet Pending Studies Studies pending at discharge: no Medical Emergencies . Who to Call and When: Medical Emergencies: If at any time you feel your situation is an emergency, please call 911 immediately. . Non-Emergent Contact Non-Emergency issues call your: Primary Care Provider . . "Provider Documentation" section prepared by Kimberly Garcia. VTE Core Measure Inpt VTE Proph given/why not?: Warfarin (Coumadin)
[2016-08-03 18:22] VITALS: BP 94/60; PULSE 85; TEMP 36.7; O2SAT 96
--- NOTE | 2016-08-03 20:17 | Discharge Summary ---
Discharge Summary Admission Date: Aug 02, 2016 at 20:24 Discharge Date: Aug 03, 2016 Discharge Disposition: Home Principal Diagnosis: Left leg DVT Procedures: CT Chest 1. No CT evidence of acute pulmonary embolism 2. No evidence of focal pulmonary consolidation. 3. Subcentimeter right lung pulmonary nodules, the largest of which measures 4 mm. Follow-up per Fleischner criteria is recommended Venous doppler 1. Acute and chronic DVT within the left lower extremity. The findings remain similar to the preceding July 25, 2016 study 2. No evidence of right lower extremity DVT TTE * Normal LV chamber size and wall thickness. * Normal LV systolic function, EF 65-70%. * No segmental left ventricular wall motion abnormalities are noted. * Normal diastolic dysfunction. * The right ventricular cavity size is normal (basal dimension <4.2 cm in right ventricular apical 4-chamber view). Normal RV systolic function by TAPSE. * Trace mitral regurgitation. Medication Reconciliation Continued Medications: Albuterol Hfa (Ventolin Hfa) 200 Puffs/47912 Mcg Aers 2 PUFFS INH QID, INHALER Calcium Carbonate-Vitamin D W/ (Caltrate 600 Plus) 1 Tab Tab 1 TAB PO BID, TAB Cholecalciferol (Vitamin D3) 50,000 Unit Cap 63294 INTER.UNIT PO WK TAKE THIS MEDICATION ONCE WEEKLY ON SUNDAY Fluoxetine HCl (Fluoxetine HCl) 20 Mg Cap 20 MG PO QAM Lorazepam (Lorazepam) 0.5 Mg Tab 0.5 MG PO Q8 PRN for Anxiety/Insomnia Oxycodone/Acetaminophen 5MG/325MG (Oxycodone/Acetaminophen 5MG/325MG) 1 Tab Tab 1 TAB PO Q6H PRN for Pain for 3 Days, #12 TAB (This prescription has been renewed) Sumatriptan Succinate (Sumatriptan Succinate) 50 Mg Tab 50 MG PO UD PRN for Migraine TAKE ONE TABLET AT ONSET OF MIGRAINE, MAY REPEAT AFTER 2 HOURS IF NEEDED. MAXIMUM 4 TABLETS A DAY. Topiramate (Topamax) 200 Mg Tab 400 MG PO QAM Warfarin Sodium (Coumadin) 5 Mg Tab 5 MG PO 5XWK TAKE 5 MG EVERY SUNDAY,SUNDAY,SUNDAY,SUNDAY AND SUNDAY OR OTHERWISE DIRECTED TO TAKE BY ANTICOAGULATION CLINIC/MD Warfarin Sodium (Coumadin) 5 Mg Tab 7.5 MG PO 2XWK, TAB TAKE 7.5 MG EVERY SUNDAY AND SUNDAY OR OTHERWISE DIRECTED TO TAKE BY ANTICOAGULATION CLINIC/MD Discontinued Medications: Hydrocodone/Acetaminophen 5MG/325MG (Jefferson 5MG/325MG) Tab 1 TAB PO Q8 PRN for Pain Admission Information HPI (per Admitting provider): Patient seen and examined. 45 year old female with PMHx of Factor V on life long Coumadin, Seizures, Depression and tobacco abuse presents to the ED with SOB, cough and increase Left leg pain x 1 day. Patient has been to the ED several times over the last week and was diagnosed with an extensive LLE DVT despite being on Coumadin. The ED physician touched base with patient's PCP who stated the patient has a history of noncompliance with Coumadin and many subtheraputic INRs and suggested the patient be started on Xarelto. Patient was discharged home and followed up with a different provider who suggested the patient continue on Coumadin but with an INR goal range of 2.5-3.5 Patient returned to the ED with increased pain and was again suggested to start Xarelto and was given coupons to help alleviate cost concerns. Patient did not start Xarelto. She returns to the ED today complaining of a dry cough. She reports shortness of breath with minimal exertion and occasional chest pressure. She states she has constant pain in her LLE from "toes to groin" That she describes as sharp and tight and rates as a 10/10. She denies fevers, chills, chest pain, palpitations, nausea, vomiting ,diarrhea, dysuria. She states she is compliant was Coumadin and gets angry when people don't believe her. In the ED VS are stable, INR is 3.1. CTA is negative for PE. She will be admitted for further workup and treatment. Physical Exam (per Admitting): General Appearance: + pertinent finding (WD/wN 45 year old female lying in bed in NAD with daughters at bedside ) Head: normocephalic, atraumatic Eyes: PERRL, EOMI, sclerae normal ENT: hearing grossly normal, pharynx normal Neck: supple, no JVD Respiratory/Chest: chest non-tender, lungs clear, normal breath sounds, no respiratory distress, no accessory muscle use Cardiovascular: regular rate, rhythm, no gallop, no JVD, no murmur, normal peripheral pulses Abdomen/GI: normal bowel sounds, non tender, soft Back: normal inspection, no muscle spasm Extremities/Musculoskelatal: normal capillary refill, + calf tenderness ( Left ), + pedal edema (L>R,) Skin: normal color, warm/dry, no rash Lymphatic: no adenopathy Hospital Course Patient was admitted for intractable pain from left leg DVT. Patient states that outpatient Jefferson is no longer working for her as she has been on this medication for so long. Patient states that she has "vascular damage" from recurrent DVT's in her leg, and this causes her chronic pain. Patient requesting a stronger pain medication. D/w patient that this will have to be discussed with her PCP Dr. Turpin, as she has signed a pain contract. [place] PDMP reviewed. Patient has been filling Jefferson 90tab once a month. She did did fill 15tab of Percocet on 07/29/16 (prescribed from ED). This program writer did give patient a prescription for 12tab Percocet upon discharge. Patient has a f/u appointment on 08/07/[address] Turpin. Will make PCP aware of situation with narcotics. LE doppler on admission showed stable left leg DVT (from ultrasound on 07/25/16). D/w patient and she would prefer to remain on Coumadin for anticoagulation. This was therefore continued upon discharge. Patient did c/o SOB on admission that improved. CT chest was negative for PE. TTE was normal. Oxygen saturation on room air was normal. Patient deemed stable for discharge with Family Medicine follow up. PE on discharge: General- awake; alert; NAD Eyes- EOMI; no scleral icterus Neck- no stridor; trachea midline Lungs- CTA bilaterally; no wheezes/crackles Heart- RRR; no m/r/g Abdomen- soft; NTND; nBS Back- no gross abnormalities Extremities- no c/c/e; no deformity Neuro- no gross focal deficits Skin- no appreciable rash or bruise . Total time spent on discharge = This includes examination of the patient, discharge planning, medication reconciliation, and communication with other providers. Discharge Instructions Discharge Instructions Admission Reason for Admission: Failure Of Outpatient Treatment, Left Leg Dvt Discharge Discharge Diagnosis / Problem: Left leg DVT Discharge Goals Goal(s): Improve disease control Activity Recommendations Activity Limitations: resume your previous activity . Instructions / Follow-Up Instructions / Follow-Up Please follow up with Family Medicine Dr. Turpin on August 07 at 11:10am. You will need to discuss any potential changes in your pain medication with Dr. Turpin. You will be contacted by the anticoagulation clinic regarding follow up. Please resume your home Coumadin dosing tomorrow. Current Hospital Diet Patient's current hospital diet: Regular Diet Discharge Diet Recommended Diet: Regular Diet Pending Studies Studies pending at discharge: no Medical Emergencies . Who to Call and When: Medical Emergencies: If at any time you feel your situation is an emergency, please call 911 immediately. . Non-Emergent Contact Non-Emergency issues call your: Primary Care Provider . . "Provider Documentation" section prepared by Kimberly Garcia. VTE Core Measure Inpt VTE Proph given/why not?: Warfarin (Coumadin) Additional Copies To Rula Turpin M.D.
== END 2016-08-03 18:47 | disposition home or self-care (01) | DRG 300 ==
LOC: ENRESERVDT → ENRESERVTM → C.EDB 17:50 → C.MS2W 20:24
PROVIDERS: ADMIT Hospitalist; ATTEND Internal Medicine
DX: I82.402 Acute embolism and thrombosis of unspecified deep veins of left lower extremity (principal); D68.51 Activated protein C resistance; I82.502 Chronic embolism and thrombosis of unspecified deep veins of left lower extremity; R06.02 Shortness of breath; G40.909 Epilepsy, unspecified, not intractable, without status epilepticus; F32.9 Major depressive disorder, single episode, unspecified; F41.9 Anxiety disorder, unspecified; R91.8 Other nonspecific abnormal finding of lung field; F17.210 Nicotine dependence, cigarettes, uncomplicated; Z91.14 Patient's other noncompliance with medication regimen; Z86.711 Personal history of pulmonary embolism; Z79.01 Long term (current) use of anticoagulants; Z79.899 Other long term (current) drug therapy; Z79.891 Long term (current) use of opiate analgesic

== ENCOUNTER 2017-01-08 05:52 | Emergency (ER) | payer OTHER ==
[~2017-01-08] VITALS: Ht 157.5 cm; Wt 64.7 kg
[~2017-01-08 05:52] MED LIST changes: +ATV5X PO; +CALCTAB7 PO; +CHOL1CAP95 PO; -FLUO20CA35 PO; +FLUO20CA36 PO; -HYDR-5688 PO; +IMT50 PO; -LORA-741 PO; -OXYC-57 PO; +OXYC-643 PO; -SUMA50TA15 PO; -WARF-246 PO; +WARF5TAB90 PO
[2017-01-08 06:01] VITALS: TEMP 36.7; Ht 157.5 cm; Wt 64.7 kg
[2017-01-08] MEDS ORDERED: HYDROCODONE/ACETAMOPHEN 5/325MG TAB PO STA (06:09)
[2017-01-08 06:48] LABS: BASO % 0.4 %; BASO ABS # 0.03 K/uL (0-0.2); COMPLETE YES; EOS % 3.6 %; HEMATOCRIT 44.8 % (37-47); IG% 0.4 %; LYMPH % 28.4 %; MEAN CELL VOLUME 98.5 fL (80-100); MEAN CORPUSCULAR HEMOGLOBIN 33.8 pg (25-34); MEAN CORPUSCULAR HGB CONC 34.4 g/dl (32-36); MONO % 8.1 %; NEUT % 59.1 %; PLATELET COUNT 177 K/uL (130-400); RED BLOOD COUNT 4.55 M/uL (4.2-5.4); WHITE BLOOD COUNT 6.69 K/uL (4.8-10.8)
[2017-01-08 06:58] LABS: INR 1.5 (0.9-1.1)
[2017-01-08 07:14] LABS: BUN/CREATININE RATIO 13.2 (10-20); CALCIUM 8.4 mg/dl (8.5-10.1); CREATININE 0.81 mg/dl (0.60-1.20); POTASSIUM 3.2 mmol/L (3.5-5.1)
--- NOTE | 2017-01-08 08:07 | DIAGNOSTIC IMAGING REPORT ---
ULTRASOUND VENOUS DOPPLER ULTRASOUND OF THE LEFT LOWER EXTREMITY CLINICAL HISTORY: Left leg swelling COMPARISON STUDY: 08/02/2016 FINDINGS: There is chronic fibrin stranding within the left superficial femoral, common femoral, and popliteal veins. Chronic changes are also present within the proximal trifurcation calf veins. No definite acute thrombus is visualized IMPRESSION: Extensive chronic left lower extremity DVT. No definite acute thrombus identified Electronically signed by: Dae Davis M.D. 01/08/2017 8:05 AM Dictated Date/Time: 01/08/2017 8:03 AM
[2017-01-08 09:25] VITALS: BP 124/76; PULSE 76; O2SAT 98
--- NOTE | 2017-01-08 15:08 | EMERGENCY ROOM VISIT NOTE ---
ED Visit Note Emergency Department Note Ms. Pierce's care was transferred to al by Gifty Torres PA-C at the end of her shift pending additional laboratory tests and venous Doppler ultrasound. In summary patient has a history of left lower leg DVTs and factor V Leiden disorder. She is currently on Coumadin for her DVTs. Patient reports over the last 2 days she has been having increasing pain and swelling in her left calf. She is being evaluated for additional acute DVTs. Laboratory Testing Test 01/08/17 06:35 Range/Units White Blood Count 6.69 4.8-10.8 K/uL Red Blood Count 4.55 4.2-5.4 M/uL Hemoglobin 15.4 12.0-16.0 g/dL Hematocrit 44.8 37-47 % Mean Corpuscular Volume 98.5 80-100 fL Mean Corpuscular Hemoglobin 33.8 25-34 pg Mean Corpuscular Hemoglobin Concent 34.4 32-36 g/dl Platelet Count 177 130-400 K/uL Mean Platelet Volume 10.0 7.4-10.4 fL Neutrophils (%) (Auto) 59.1 % Lymphocytes (%) (Auto) 28.4 % Monocytes (%) (Auto) 8.1 % Eosinophils (%) (Auto) 3.6 % Basophils (%) (Auto) 0.4 % Neutrophils # (Auto) 3.95 1.4-6.5 K/uL Lymphocytes # (Auto) 1.90 1.2-3.4 K/uL Monocytes # (Auto) 0.54 0.11-0.59 K/uL Eosinophils # (Auto) 0.24 0-0.5 K/uL Basophils # (Auto) 0.03 0-0.2 K/uL RDW Standard Deviation 48.3 36.4-46.3 fL RDW Coefficient of Variation 13.4 11.5-14.5 % Immature Granulocyte % (Auto) 0.4 % Immature Granulocyte # (Auto) 0.03 0.00-0.02 K/uL Prothrombin Time 16.0 9.0-12.0 SECONDS Prothromb Time International Ratio 1.5 0.9-1.1 Activated Partial Thromboplast Time 25.1 21.0-31.0 SECONDS Partial Thromboplastin Ratio 1.0 Sodium Level 144 136-145 mmol/L Potassium Level 3.2 3.5-5.1 mmol/L Chloride Level 112 98-107 mmol/L Carbon Dioxide Level 26 21-32 mmol/L Anion Gap 6.0 3-11 mmol/L Blood Urea Nitrogen 11 7-18 mg/dl Creatinine 0.81 0.60-1.20 mg/dl Est Creatinine Clear Calc Drug Dose 78.3 ml/min Estimated GFR () 102.4 Estimated GFR (Non- 88.3 BUN/Creatinine Ratio 13.2 10-20 Random Glucose 65 70-99 mg/dl Calcium Level 8.4 8.5-10.1 mg/dl Total Bilirubin 0.2 0.2-1 mg/dl Aspartate Amino Transf (AST/SGOT) 32 15-37 U/L Alanine Aminotransferase (ALT/SGPT) 123 12-78 U/L Alkaline Phosphatase 69 45-117 U/L Total Protein 6.8 6.4-8.2 gm/dl Albumin 3.4 3.4-5.0 gm/dl Globulin 3.4 2.5-4.0 gm/dl Albumin/Globulin Ratio 1.0 0.9-2 Left Lower Leg Venous Doppler Ultrasound: Was reviewed by my self and read by the radiologist showing an extensive chronic left lower extremity DVT with no definitive acute thrombus identified. ED Course: Patient is assessed as noted above. Patient was offered pain medication and refused; she reports she drove to the hospital today by her self and she did not on any narcotics for pain control. I did offer Tylenol and she refused also. Patient's case was reviewed with Dr. Kaplan; we agreed on diagnostic approach, treatment, disposition and plan. Patient was offered a walker to assist with ambulation and she accepted; she was trained on use. Patient was educated about today's findings and instructed on her treatment plan ; she verbalizes understanding and agreement with this plan. Clinical Impression: Subtherapeutic INR. Worsening left leg pain and swelling. Disposition: Patient discharged home in stable condition; prior to departure she was reassessed and subjectively reported she was feeling better. Plan: Patient was encouraged to contact her Coumadin clinic and inform them of today' s ED visit and report that her INR was 1.5 and request reevaluation of her Coumadin needs. Patient was encouraged to contact her family doctor for follow-up care and treatment. Patient was instructed to use her prescribed Vicodin as needed for severe pain; appropriate precautions were discussed with the patient. Patient was encouraged to elevate her leg while at rest and to use her walker. Patient was encouraged return the ED for worsening/uncontrolled pain, uncontrolled swelling, leg weakness/numbness/tingling, fevers or any new/ concerning symptoms.
--- NOTE | 2017-01-08 22:23 | EMERGENCY ROOM VISIT NOTE ---
History First contact with patient: 06:05 Chief Complaint: LEG PAIN,LEG INJURY Stated Complaint: ? DVT IN LEFT LEG History of Present Illness The patient is a 46 year old female who presents to the Emergency Room with complaints of left leg pain and swelling for the past few days is a history of recurrent DVTs on Coumadin. Last INR was one month ago and normal. Her levels are 2.5-3.5. Patient is factor V. She continues to smoke. Patient denies chest pain, dyspnea, fever, chills, numbness, tingling, injury to the area. Review of Systems See HPI for pertinent positives & negatives. A total of 10 systems reviewed and were otherwise negative. Past Medical/Surgical History Medical Problems: (1) Anticoagulated on warfarin (2) Asthma, Unspecified (3) Bipolar Disorder, Unspecified (4) Common Migraine W/O Intractable Migraine (5) Depression (6) DVT of lower extremity (deep venous thrombosis) (7) Epilepsy, Unsp, Not Intractable, Without Status Epilepticus (8) Factor V Leiden (9) Factor V Leiden (10) GI bleed (11) Kidney stone (12) Manager Retention (Current) Use Of 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 (13) Multiple pulmonary emboli (14) Right leg pain (15) Seizure (16) Tobacco abuse Surgical Problems: (1) H/O tubal ligation (2) History of cholecystectomy (3) Hx of tonsillectomy (4) Tubal Ligation Status Family History FH: cancer Gallbladder disease Kidney disease Kidney stones Social History Smoking Status: Current Every Day Smoker Alcohol Use: none Drug Use: none Marital Status: Housing Status: lives with family Occupation Status: employed Current/Historical Medications Scheduled Albuterol Hfa (Ventolin Hfa), 2 PUFFS INH QID Cholecalciferol (Vitamin D3), 50,000 INTER.UNIT PO WK Fluoxetine HCl (Fluoxetine HCl), 20 MG PO QAM Topiramate (Topamax), 400 MG PO QAM Warfarin Sodium (Coumadin), 5 MG PO 5XWK Warfarin Sodium (Coumadin), 7.5 MG PO 2XWK Scheduled PRN Lorazepam (Lorazepam), 0.5 MG PO Q8 PRN for Anxiety/Insomnia Oxycodone/Acetaminophen 5MG/325MG (Oxycodone/Acetaminophen 5MG/325MG), 1 TAB PO Q6H PRN for Pain Sumatriptan Succinate (Sumatriptan Succinate), 50 MG PO UD PRN for Migraine Allergies Coded Allergies: Morphine (Verified Allergy, Intermediate, chest pain; trouble breathing, ) Chocolate (Verified Allergy, Unknown, 01/08/17) Kiwi (Verified Allergy, Unknown, ANAPHYLAXIS, 01/08/17) Peanut (Verified Allergy, Unknown, 01/08/17) Prochlorperazine (Verified Allergy, Unknown, SEVERE ALLERGIC RXN, 01/08/17) Physical Exam Vital Signs Date Time Temp Pulse Resp B/P (MAP) Pulse Ox O2 Delivery O2 Flow Rate FiO2 01/08/17 09:25 76 18 124/76 98 01/08/17 08:03 77 18 122/72 98 Room Air 01/08/17 06:47 57 01/08/17 06:35 Room Air 01/08/17 06:01 36.7 86 18 113/81 96 Room Air Physical Exam VITALS: Vitals are noted on the nurse's note and reviewed by myself. Vital signs stable. GENERAL: Pleasant female, in no acute distress, nondiaphoretic, well-developed well-nourished. SKIN: Capillary reflex less than 2 seconds. HEENT: Normocephalic. PERRLA. EOMI. Nares patent. Mucous membranes moist. Neck is supple without nuchal rigidity. HEART: Regular rate and rhythm without murmurs gallops or rubs. LUNGS: Clear to auscultation bilaterally without wheezes, rales or rhonchi. No retractions or accessory muscle use. ABDOMEN: Positive bowel sounds x 4. Normal tympanic percussion. Soft, nontender, without masses or organomegaly. Marinelli sign negative. No guarding or rebound tenderness. MUSCULOSKELETAL: No gross musculoskeletal defects. No pedal edema. left calf tenderness. NEURO: Patient was alert and oriented to person place and time. Normal sensation to light and sharp touch. No focal neurological deficits. Medical Decision & Procedures Laboratory Results 01/08/17 06:35 Red Blood Count 4.55, Mean Corpuscular Volume 98.5, Mean Corpuscular Hemoglobin 33.8, Mean Corpuscular Hemoglobin Concent 34.4, Mean Platelet Volume 10.0, Neutrophils (%) (Auto) 59.1, Lymphocytes (%) (Auto) 28.4, Monocytes (%) (Auto) 8.1, Eosinophils (%) (Auto) 3.6, Basophils (%) (Auto) 0.4, Neutrophils # (Auto) 3.95, Lymphocytes # (Auto) 1.90, Monocytes # (Auto) 0.54, Eosinophils # (Auto) 0.24, Basophils # (Auto) 0.03 01/08/17 06:35 Test 01/08/17 06:35 White Blood Count 6.69 K/uL (4.8-10.8) Red Blood Count 4.55 M/uL (4.2-5.4) Hemoglobin 15.4 g/dL (12.0-16.0) Hematocrit 44.8 % (37-47) Mean Corpuscular Volume 98.5 fL (80-100) Mean Corpuscular Hemoglobin 33.8 pg (25-34) Mean Corpuscular Hemoglobin Concent 34.4 g/dl (32-36) Platelet Count 177 K/uL (130-400) Mean Platelet Volume 10.0 fL (7.4-10.4) Neutrophils (%) (Auto) 59.1 % Lymphocytes (%) (Auto) 28.4 % Monocytes (%) (Auto) 8.1 % Eosinophils (%) (Auto) 3.6 % Basophils (%) (Auto) 0.4 % Neutrophils # (Auto) 3.95 K/uL (1.4-6.5) Lymphocytes # (Auto) 1.90 K/uL (1.2-3.4) Monocytes # (Auto) 0.54 K/uL (0.11-0.59) Eosinophils # (Auto) 0.24 K/uL (0-0.5) Basophils # (Auto) 0.03 K/uL (0-0.2) RDW Standard Deviation 48.3 fL (36.4-46.3) RDW Coefficient of Variation 13.4 % (11.5-14.5) Immature Granulocyte % (Auto) 0.4 % Immature Granulocyte # (Auto) 0.03 K/uL (0.00-0.02) Prothrombin Time 16.0 SECONDS (9.0-12.0) Prothromb Time International Ratio 1.5 (0.9-1.1) Activated Partial Thromboplast Time 25.1 SECONDS (21.0-31.0) Partial Thromboplastin Ratio 1.0 Anion Gap 6.0 mmol/L (3-11) Est Creatinine Clear Calc Drug Dose 78.3 ml/min Estimated GFR () 102.4 Estimated GFR (Non- 88.3 BUN/Creatinine Ratio 13.2 (10-20) Calcium Level 8.4 mg/dl (8.5-10.1) Total Bilirubin 0.2 mg/dl (0.2-1) Aspartate Amino Transf (AST/SGOT) 32 U/L (15-37) Alanine Aminotransferase (ALT/SGPT) 123 U/L (12-78) Alkaline Phosphatase 69 U/L (45-117) Total Protein 6.8 gm/dl (6.4-8.2) Albumin 3.4 gm/dl (3.4-5.0) Globulin 3.4 gm/dl (2.5-4.0) Albumin/Globulin Ratio 1.0 (0.9-2) Medications Administered Medications (Trade) Dose Ordered Sig/Cassy Route Start Time Stop Time Status Last Admin Dose Admin Acetaminophen/ Hydrocodone Bitart (Lyman 5/325 Tab) 1 tab NOW STAT PO 01/08/17 06:09 01/08/17 06:11 DC 01/08/17 06:42 1 TAB ED Course Prior records reviewed and summarized above. Triage Nursing notes reviewed. The patient's history was concerning for swelling and pain in the leg. Differential diagnosis: Etiologies such as DVT, musculoskeletal, infection, joint effusion, trauma, lymphedema, idiopathic, CHF, as well as others were entertained.. Physical examination: The physical examination revealed no signs of infection. Neurovascularly intact. ER treatment provided: Lyman On reassessment the patient felt better. Diagnostics interpreted by me: The labs revealed pending stable H&H Imaging studies: pending This appears to be consistent with left leg pain. Patient was neurovascular and neurologically intact. She is well-appearing. Case is signed out to Eros Zepeda PA-C pending ultrasound and laboratory workup and reevaluation in stable condition case reviewed with my Attending Medical Decision As above Impression Primary Impression: Leg pain, left Departure Information Dispostion Home / Self-Care Condition GOOD Referrals Rula Turpin M.D. (PCP) Patient Instructions My [facility] Additional Instructions Acetaminophen(Tylenol) may be used for fever or pain. Use 1000mg every six hours as needed. Avoid using more than 4000mg in a 24 hour period. Rest and drink plenty of fluids as tolerated. Continue current medications. Avoid strenuous activities and anything that worsens your pain. Resume normal activities once your symptoms resolve. Return to the ER immediately for abdominal pain, vomiting, fevers, chest pains , difficulty breathing, worsening of your condition, or as needed. Follow up with your primary physician in 2-3 days for a recheck of your current condition.
== END 2017-01-08 09:27 | disposition home or self-care (01) ==
LOC: C.EDB 05:53
DX: M79.605 Pain in left leg (principal); Z86.718 Personal history of other venous thrombosis and embolism; Z79.01 Long term (current) use of anticoagulants; D68.51 Activated protein C resistance; J45.909 Unspecified asthma, uncomplicated; F31.9 Bipolar disorder, unspecified; G43.909 Migraine, unspecified, not intractable, without status migrainosus; F32.9 Major depressive disorder, single episode, unspecified; G40.909 Epilepsy, unspecified, not intractable, without status epilepticus; Z87.442 Personal history of urinary calculi; Z86.711 Personal history of pulmonary embolism; F17.210 Nicotine dependence, cigarettes, uncomplicated; Z80.9 Family history of malignant neoplasm, unspecified; Z83.3 Family history of diabetes mellitus; Z84.1 Family history of disorders of kidney and ureter; Z79.899 Other long term (current) drug therapy

== ENCOUNTER 2017-02-19 16:30 | Emergency (ER) | payer OTHER ==
[~2017-02-19] VITALS: Ht 157.5 cm; Wt 66.8 kg
[~2017-02-19 16:30] MED LIST changes: -CALCTAB7 PO
[2017-02-19 16:50] VITALS: TEMP 36.7; Ht 157.5 cm; Wt 66.8 kg
[2017-02-19] MEDS ORDERED: SODIUM CHLORIDE 0.9% 1000ML 1,000 ML IV STA (17:48)
[2017-02-19] MEDS ORDERED: LORAZEPAM 2 MG/ML 1 ML VIAL IV STA (17:48)
--- NOTE | 2017-02-19 18:08 | EMERGENCY ROOM VISIT NOTE ---
History Report prepared by Sarbjit: Neptali Kinney Under the Supervision of: Dr. Marcelino Reid M.D. First contact with patient: 17:39 Chief Complaint: VAGINAL BLEEDING Stated Complaint: EXCESSSIVE VAG BLEEDING History of Present Illness The patient is a 46 year old female who presents to the Emergency Room with complaints of worsening vaginal bleeding for the past three days. The patient states that she was having a normal period for the past three days, and last night the bleeding got much worse. The patient states that she is on Coumadin since she was 18 years old for Factor 5 Leiden, and she has had 15 clots in total. The patient states that her last INR was 1.5 about a month ago. The patient states that last night she bled through, and then today she bled through her pants, and she states that this never happens. She states that the blood is fresh bright red blood. She additionally states that she has some cramping abdominal pain. She states that this morning when she was brushing her teeth she started to bleed from her gums, and she currently has a headache, nausea, and she is light headed. She denies any recent falls, trauma, vomiting, diarrhea, or chance of being . The patient states that she took a Vicodin at 1400 today, and she has not eaten anything today. Source of History: patient Onset: three days ago Position: other (vagina) Quality: other (bleeding) Timing: worsening Associated Symptoms: + headache, + nausea, + abdominal pain, No vomiting, No diarrhea Review of Systems See HPI for pertinent positives & negatives. A total of 10 systems reviewed and were otherwise negative. 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) Use Of 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 (13) Multiple pulmonary emboli (14) Right leg pain (15) Seizure (16) Tobacco abuse Surgical Problems: (1) H/O tubal ligation (2) History of cholecystectomy (3) Hx of tonsillectomy (4) Tubal Ligation Status Family History FH: cancer Gallbladder disease Kidney disease Kidney stones Social History Smoking Status: Current Every Day Smoker Alcohol Use: none Drug Use: none Marital Status: Housing Status: lives with family Occupation Status: employed Current/Historical Medications Scheduled Omeprazole (Prilosec), 40 MG PO DAILY Topiramate (Topamax), 400 MG PO QAM Warfarin Sodium (Coumadin), 5 MG PO 5XWK Warfarin Sodium (Coumadin), 7.5 MG PO 2XWK Scheduled PRN Albuterol Hfa (Ventolin Hfa), 2 PUFFS INH QID PRN for SOB/Wheezing Lorazepam (Lorazepam), 0.5 MG PO Q8 PRN for Anxiety/Insomnia Oxycodone/Acetaminophen 5MG/325MG (Oxycodone/Acetaminophen 5MG/325MG), 1 TAB PO Q6H PRN for Pain Sumatriptan Succinate (Sumatriptan Succinate), 50 MG PO UD PRN for Migraine Allergies Coded Allergies: Morphine (Verified Allergy, Intermediate, chest pain; trouble breathing, ) Chocolate (Verified Allergy, Unknown, 02/19/17) Kiwi (Verified Allergy, Unknown, ANAPHYLAXIS, 02/19/17) Peanut (Verified Allergy, Unknown, 02/19/17) Prochlorperazine (Verified Allergy, Unknown, SEVERE ALLERGIC RXN, 02/19/17) Physical Exam Vital Signs Date Time Temp Pulse Resp B/P (MAP) Pulse Ox O2 Delivery O2 Flow Rate FiO2 02/19/17 20:09 71 16 101/60 95 Room Air 02/19/17 18:57 76 22 100/50 97 Room Air 02/19/17 18:05 70 20 103/65 97 Room Air 02/19/17 16:50 36.7 91 18 112/78 96 Room Air Physical Exam GENERAL: Patient is anxious appearing and tearful. HEENT: No acute trauma, normocephalic atraumatic, mucous membranes moist, no nasal congestion, no scleral icterus. NECK: No stridor, no adenopathy, no meningismus, trachea is midline. LUNGS: Clear to auscultation bilaterally, no wheeze, no rhonchi, breath sounds equal. HEART: Without murmurs gallops or rubs, regular rate and rhythm. ABDOMEN: Soft, nontender, bowel sounds positive, no hernias, no peritonitis. PELVIS: Oozing of blood from the cervix. No heavy vaginal bleeding. Blood appears menstrual EXTREMITIES: No cyanosis or edema, full range of motion of all the joints without pain or difficulty, no signs for acute trauma. NEUROLOGIC: Oriented x 3, no acute motor or sensory deficits, no focal weakness. SKIN: No rash, no jaundice, no diaphoresis. Medical Decision & Procedures ER Provider Diagnostic Interpretation: Radiology results as stated below per my review and radiologist interpretation: PELVIC ULTRASOUND CLINICAL HISTORY: Excessive vaginal bleeding. COMPARISON STUDY: Pelvic ultrasound December 04, [address] of the abdomen and pelvis July 07, 2016. TECHNIQUE: Transabdominal and transvaginal sonography of the pelvis was performed. FINDINGS: The uterus measures 8.8 x 4.6 x 5.9 cm. Endometrium measures 7 mm in thickness. The right ovary was not visualized due to overlying bowel gas. The left ovary measured 3.5 x 2.1 x 2.3 cm. Color flow was demonstrated within the left ovary. A few left ovarian follicles were noted. No free fluid was identified. IMPRESSION: 1. Unremarkable sonographic appearance of the uterus and left ovary. Endometrial thickness of 7 mm. 2. Nonvisualization of the right ovary due to overlying bowel gas. Electronically signed by: Louis Roberts M.D. 02/19/2017 8:07 PM Dictated Date/Time: 02/19/2017 8:[address] OF THE HEAD WITHOUT CONTRAST CLINICAL HISTORY: Headache. COMPARISON STUDY: Head CT July 05, 2015. CT DOSE: 537.48 mGy.cm TECHNIQUE: Helical axial images of the head were obtained without IV contrast. Automated exposure control was utilized for the study. A dose lowering technique was utilized adhering to the principles of ALARA. FINDINGS: No acute intracranial hemorrhage, midline shift or mass effect is present. Ventricular system is normal. Basilar cisterns are patent. There are no extra-axial collections. Carrizales-white differentiation is maintained. There are no findings to suggest acute dural sinus thrombosis or acute territorial infarct. There are no significant calvarial abnormalities. Visualized portions of the sinuses and mastoid air cells are clear. IMPRESSION: No acute intracranial findings. Electronically signed by: Louis Roberts M.D. 02/19/2017 6:24 PM Dictated Date/Time: 02/19/2017 6:20 PM Laboratory Results 02/19/17 18:06 02/19/17 18:06 Test 02/19/17 18:06 Red Blood Count 4.78 M/uL (4.2-5.4) Mean Corpuscular Volume 95.6 fL (80-100) Mean Corpuscular Hemoglobin 35.1 pg (25-34) Mean Corpuscular Hemoglobin Concent 36.8 g/dl (32-36) RDW Standard Deviation 44.7 fL (36.4-46.3) RDW Coefficient of Variation 12.9 % (11.5-14.5) Mean Platelet Volume 10.3 fL (7.4-10.4) Prothrombin Time 59.2 SECONDS (9.0-12.0) Prothromb Time International Ratio 5.2 (0.9-1.1) Activated Partial Thromboplast Time 43.6 SECONDS (21.0-31.0) Partial Thromboplastin Ratio 1.7 Anion Gap 8.0 mmol/L (3-11) Est Creatinine Clear Calc Drug Dose 72.3 ml/min Estimated GFR () 91.4 Estimated GFR (Non- 78.8 BUN/Creatinine Ratio 16.6 (10-20) Calcium Level 8.7 mg/dl (8.5-10.1) Human Chorionic Gonadotropin, Qual NEG (NEG) Chemistry Specimen Hemolysis Laboratory results reviewed by me. Medications Administered Medications (Trade) Dose Ordered Sig/Cassy Route Start Time Stop Time Status Last Admin Dose Admin Sodium Chloride 1,000 ml @ 999 mls/hr Q1H1M STAT IV 02/19/17 17:48 02/19/17 18:48 DC 02/19/17 18:04 999 MLS/HR Lorazepam (Ativan Inj) 1 mg NOW STAT IV 02/19/17 17:48 02/19/17 17:51 DC 02/19/17 18:05 1 MG Hydromorphone HCl (Dilaudid Inj) 0.5 mg NOW STAT IV 02/19/17 18:58 02/19/17 18:59 DC 02/19/17 19:11 0.5 MG Phytonadione 2.5 mg/Sodium Chloride 50.25 ml @ 100.5 mls/ hr ONE ONCE IV 02/19/17 19:15 02/19/17 19:44 DC 8/28/17 20:08 100.5 MLS/HR Hydromorphone HCl (Dilaudid Inj) 0.5 mg NOW STAT IV 02/19/17 20:12 02/19/17 20:14 DC 02/19/17 20:16 0.5 MG ED Course 1738: The patient was evaluated in room C4. A complete history and physical exam was performed. 1747: Ativan Inj 1mg IV, Sodium Chloride 1000 ml @ 999 mls/hr IV 1857: Dilaudid Inj 0.5mg IV 1912: I discussed the patient's case with Dr. Saleh, and she states that I should give the patient 2.5mg of Vitamin K. 1914: Phytonadione 2.5mg/ Sodium Chloride 50.25ml @ 100.5mls/hr IV 2011: Dilaudid Inj 0.5mg IV 2035: Reevaluated the patient. Discussed results and discharge instructions: She verbalized understanding and agreement. The patient is ready for discharge. Medical Decision Differential diagnoses include: elevated INR, anemia, fibroid, heavy period bleeding, intracranial bleeding, coagulopathy, . There is no leukocytosis or concerning anemia. No significant electrolyte abnormality that requires correction. No kidney failure. INR is quite elevated at over 5. Pelvic ultrasound does not show any fibroid or concerning pelvic pathology. testing is negative. The patient received IV saline, she was given IV vitamin K at the recommendation of the coagulation cyber security consultant. She received IV Dilaudid for pain , IV Ativan for anxiety. On my exam, she had minimal vaginal bleeding. The blood appeared menstrual. Patient does feel comfortable with discharge home, the bleeding seems to be controlled. She is not hypotensive, she is not anemic. She is going to hold her Coumadin until told otherwise. She will return for any heavier bleeding. Rest and hydration were encouraged. She has an INR appointment checkup tomorrow. Medication Reconcilliation Current Medication List: was personally reviewed by me Blood Pressure Screening Patient's blood pressure: Normal blood pressure Consults Time Called: 1904 Consulting Physician: Dr. Saleh Returned Call: 1912 I discussed the patient's case with Dr. Saleh, and she states that I should give the patient 2.5mg of Vitamin K. Impression Primary Impression: Coagulopathy Additional Impressions: Episode of heavy vaginal bleeding Pelvic cramping Scribe Attestation The scribe's documentation has been prepared under my direction and personally reviewed by me in its entirety. I confirm that the note above accurately reflects all work, treatment, procedures, and medical decision making performed by me. Departure Information Dispostion Home / Self-Care Referrals Rula Turpin M.D. (PCP) Forms HOME CARE DOCUMENTATION FORM, IMPORTANT VISIT INFORMATION, WORK / SCHOOL INSTRUCTIONS Patient Instructions My [facility] Additional Instructions tylenol for pain rest stay with friend carley return for worsening bleeding no more coumadin until instructed by the clinic recheck INR tomorrow workup here was ok except for the higher INR Problem Qualifiers
[2017-02-19 18:20] LABS: HEMATOCRIT 45.7 % (37-47); MEAN CELL VOLUME 95.6 fL (80-100); MEAN CORPUSCULAR HEMOGLOBIN 35.1 pg (25-34); MEAN CORPUSCULAR HGB CONC 36.8 g/dl (32-36); MEAN PLATELET VOLUME 10.3 fL (7.4-10.4); PLATELET COUNT 188 K/uL (130-400); RED BLOOD COUNT 4.78 M/uL (4.2-5.4); WHITE BLOOD COUNT 5.88 K/uL (4.8-10.8)
--- NOTE | 2017-02-19 18:25 | DIAGNOSTIC IMAGING REPORT ---
CT OF THE HEAD WITHOUT CONTRAST CLINICAL HISTORY: Headache. COMPARISON STUDY: Head CT July 05, 2015. CT DOSE: 537.48 mGy.cm TECHNIQUE: Helical axial images of the head were obtained without IV contrast. Automated exposure control was utilized for the study. A dose lowering technique was utilized adhering to the principles of ALARA. FINDINGS: No acute intracranial hemorrhage, midline shift or mass effect is present. Ventricular system is normal. Basilar cisterns are patent. There are no extra-axial collections. Carrizales-white differentiation is maintained. There are no findings to suggest acute dural sinus thrombosis or acute territorial infarct. There are no significant calvarial abnormalities. Visualized portions of the sinuses and mastoid air cells are clear. IMPRESSION: No acute intracranial findings. Electronically signed by: Louis Roberts M.D. 02/19/2017 6:24 PM Dictated Date/Time: 02/19/2017 6:20 PM
[2017-02-19] MEDS ORDERED: OMEP40CA41 PO (18:28)
[2017-02-19 18:42] LABS: BUN/CREATININE RATIO 16.6 (10-20); CALCIUM 8.7 mg/dl (8.5-10.1); CREATININE 0.89 mg/dl (0.60-1.20); POTASSIUM 3.9 mmol/L (3.5-5.1)
[2017-02-19] MEDS ORDERED: HYDROmorphone INJ 2 MG/ML SYR/VIAL IV STA ×2 (18:58→20:12)
[2017-02-19 19:01] LABS: INR 5.2 (0.9-1.1); PARTIAL THROMBOPLASTIN RATIO 1.7; PROTHROMBIN TIME (PATIENT) 59.2 SECONDS (9.0-12.0)
[2017-02-19 19:09] LABS: PREG INTERNAL NEGATIVE QC NEG CLEAR BACKGROUND; PREG INTERNAL POSITIVE QC POS CONTROL LINE
[2017-02-19] MEDS ORDERED: PHYTONADIONE INJ 2.5 MG in SODIUM CHLORIDE 0.9% 50ML 50 ML IV ONE (19:15)
--- NOTE | 2017-02-19 20:08 | DIAGNOSTIC IMAGING REPORT ---
PELVIC ULTRASOUND CLINICAL HISTORY: Excessive vaginal bleeding. COMPARISON STUDY: Pelvic ultrasound December 04, [address] of the abdomen and pelvis July 07, 2016. TECHNIQUE: Transabdominal and transvaginal sonography of the pelvis was performed. FINDINGS: The uterus measures 8.8 x 4.6 x 5.9 cm. Endometrium measures 7 mm in thickness. The right ovary was not visualized due to overlying bowel gas. The left ovary measured 3.5 x 2.1 x 2.3 cm. Color flow was demonstrated within the left ovary. A few left ovarian follicles were noted. No free fluid was identified. IMPRESSION: 1. Unremarkable sonographic appearance of the uterus and left ovary. Endometrial thickness of 7 mm. 2. Nonvisualization of the right ovary due to overlying bowel gas. Electronically signed by: Louis Roberts M.D. 02/19/2017 8:07 PM Dictated Date/Time: 02/19/2017 8:05 PM
[2017-02-19 20:57] VITALS: BP 109/70; PULSE 78; O2SAT 96
== END 2017-02-19 21:15 | disposition home or self-care (01) ==
LOC: C.EDB 16:31 → C.EDC 21:15
DX: D68.9 Coagulation defect, unspecified (principal); N93.9 Abnormal uterine and vaginal bleeding, unspecified; R10.2 Pelvic and perineal pain; J45.909 Unspecified asthma, uncomplicated; F31.9 Bipolar disorder, unspecified; F32.9 Major depressive disorder, single episode, unspecified; D68.51 Activated protein C resistance; Z79.01 Long term (current) use of anticoagulants; R56.9 Unspecified convulsions; F17.200 Nicotine dependence, unspecified, uncomplicated

== ENCOUNTER 2017-03-27 23:05 | Emergency (ER) | payer OTHER ==
[~2017-03-27] VITALS: Ht 162.6 cm; Wt 66.8 kg
[~2017-03-27 23:05] MED LIST changes: -CHOL1CAP95 PO; -FLUO20CA36 PO; +OMEP40CA41 PO
[2017-03-27 23:13] VITALS: TEMP 36.7; Ht 162.6 cm; Wt 66.8 kg
[2017-03-27] MEDS ORDERED: ONDA4TAB46 PO (23:49)
[2017-03-27] MEDS ORDERED: KETOROLAC TROMETHAMINE 30 MG/ML VIAL IV STA (23:57)
[2017-03-27] MEDS ORDERED: SODIUM CHLORIDE 0.9% 1000ML 1,000 ML IV STA (23:57)
[2017-03-27] MEDS ORDERED: ONDANSETRON INJ 2 MG/ML 2 ML VIAL IV STA (23:57)
[2017-03-28 00:40] LABS: URINE APPEARANCE CLEAR (CLEAR); URINE BILIRUBIN NEG (NEG); URINE COLOR YELLOW; URINE EPITHELIAL CELL AUTO >30 /lpf (0-5); URINE NITRITE NEG (NEG); URINE PH 5.5 (4.5-7.5); URINE SPECIFIC GRAVITY 1.027 (1.000-1.030); UROBILINOGEN NEG (NEG); ZZUR CULT IF INDIC CLEAN CATCH YES
[2017-03-28 00:41] LABS: BASO % 0.1 %; BASO ABS # 0.01 K/uL (0-0.2); COMPLETE YES; EOS % 2.2 %; HEMATOCRIT 42.1 % (37-47); IG% 0.4 %; LYMPH % 31.8 %; LYMPH ABS # 2.55 K/uL (1.2-3.4); MEAN CELL VOLUME 96.3 fL (80-100); MEAN CORPUSCULAR HEMOGLOBIN 33.6 pg (25-34); MEAN CORPUSCULAR HGB CONC 34.9 g/dl (32-36); MEAN PLATELET VOLUME 10.1 fL (7.4-10.4); MONO % 7.8 %; NEUT % 57.7 %; PLATELET COUNT 188 K/uL (130-400); RED BLOOD COUNT 4.37 M/uL (4.2-5.4); WHITE BLOOD COUNT 8.03 K/uL (4.8-10.8)
[2017-03-28 00:41] LABS: MANUAL MICROSCOPIC REQUIRED? NO; REVIEW REQ? YES
[2017-03-28 01:03] LABS: BUN/CREATININE RATIO 15.5 (10-20); CALCIUM 8.2 mg/dl (8.5-10.1); CREATININE 0.84 mg/dl (0.60-1.20); POTASSIUM 3.5 mmol/L (3.5-5.1)
[2017-03-28] MEDS ORDERED: ONDANSETRON INJ 2 MG/ML 2 ML VIAL IV STA ×2 (01:17→01:23)
[2017-03-28] MEDS ORDERED: HYDROmorphone INJ 0.5 MG/0.5 ML SYR IV STA (01:23)
[2017-03-28] MEDS ORDERED: PROMETHAZINE HCL INJ 12.5 MG in SODIUM CHLORIDE 0.9% 50ML 50 ML IV STA (02:04)
[2017-03-28] MEDS ORDERED: CEFTRIAXONE SOD INJ 1 GM ADDVIAL IV STA (02:07)
[2017-03-28] MEDS ORDERED: AZITHROMYCIN IV 500 MG in DEXTROSE 5% 250ML 250 ML IV ONE (02:15)
[2017-03-28 02:35] LABS: INR 1.6 (0.9-1.1); PARTIAL THROMBOPLASTIN RATIO 1.1; PROTHROMBIN TIME (PATIENT) 17.8 SECONDS (9.0-12.0)
[2017-03-28] MEDS ORDERED: METRONIDAZOLE 250 MG TAB PO STA (03:41)
[2017-03-28] MEDS ORDERED: METR-163 PO (05:37)
[2017-03-28] MEDS ORDERED: AZIT250T PO (05:37)
--- NOTE | 2017-03-28 05:39 | EMERGENCY ROOM VISIT NOTE ---
History First contact with patient: 23:37 Chief Complaint: FLANK PAIN Stated Complaint: KIDNEY STONE History of Present Illness The patient is a 46 year old female who presents to the Emergency Room with complaints of left flank pain. The patient states that she went to her primary care provider's office 2 weeks ago due to intermittent fevers, left flank pain, vomiting, vaginal discharge and hematuria. She states that she had a urinalysis and had Chlamydia and gonorrhea testing through her urine, which was negative. She was treated with a dose of IM Rocephin and ciprofloxacin for possible urinary tract infection. She was told that she might have a kidney stone as well, but states that no testing was done for this. She states that her symptoms have worsened over the past 2 days. She has had vomiting and fevers and chills which only occur at night. She rates her flank discomfort an 8/10. She states it radiates into the abdomen. She reports that the discharge has persisted and she is unsure if it is coming from her urethra or vagina. She does report a new sexual partner approximately 4 months ago but is not concerned for STIs. The patient has a history of factor V Leiden and takes Coumadin. Review of Systems A complete 10 point review of systems was reviewed with the patient with pertinent positives and negatives as per history of present illness. All else were negative. 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 (Current) Use Of 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 (13) Multiple pulmonary emboli (14) Right leg pain (15) Seizure (16) Tobacco abuse Surgical Problems: (1) H/O tubal ligation (2) History of cholecystectomy (3) Hx of tonsillectomy (4) Tubal Ligation Status Family History FH: cancer Gallbladder disease Kidney disease Kidney stones Social History Smoking Status: Current Some Day Smoker Alcohol Use: none Drug Use: none Marital Status: Housing Status: lives with family Occupation Status: employed Current/Historical Medications Scheduled Azithromycin (Zithromax), 250 MG PO DAILY Metronidazole (Flagyl), 500 MG PO BID Omeprazole (Prilosec), 40 MG PO DAILY Topiramate (Topamax), 400 MG PO QAM Warfarin Sodium (Coumadin), 5 MG PO 5XWK Warfarin Sodium (Coumadin), 7.5 MG PO 2XWK Scheduled PRN Albuterol Hfa (Ventolin Hfa), 2 PUFFS INH QID PRN for SOB/Wheezing Lorazepam (Lorazepam), 0.5 MG PO Q8 PRN for Anxiety/Insomnia Ondansetron Hcl (Zofran), 4 MG PO Q6 PRN for Nausea Oxycodone/Acetaminophen 5MG/325MG (Oxycodone/Acetaminophen 5MG/325MG), 1 TAB PO Q6H PRN for Pain Sumatriptan Succinate (Sumatriptan Succinate), 50 MG PO UD PRN for Migraine Physical Exam Vital Signs Date Time Temp Pulse Resp B/P (MAP) Pulse Ox O2 Delivery O2 Flow Rate FiO2 03/28/17 05:48 66 18 96/63 95 Room Air 03/28/17 04:18 88 20 99/79 98 Room Air 03/28/17 03:22 73 22 85/51 96 Room Air 03/28/17 02:26 66 20 85/53 99 Room Air 03/28/17 01:27 67 24 87/62 98 Room Air 03/27/17 23:13 36.7 97 16 101/58 96 Room Air Physical Exam VITALS: Vitals are noted on the nurse's note and reviewed by myself. Vital signs stable. GENERAL: This is a 46-year-old female, in no acute distress, nondiaphoretic, well-developed well-nourished. EARS: External auditory canals clear, tympanic membranes pearly king without erythema or effusion bilaterally. EYES: Pupils equal round and reactive to light and accommodation. MOUTH: Mucous membranes moist. HEART: Regular rate and rhythm without murmurs gallops or rubs. LUNGS: Clear to auscultation bilaterally without wheezes, rales or rhonchi. ABDOMEN: Positive bowel sounds x 4. Soft, nontender to palpation. No CVA tenderness. PELVIC: Normal female external genitalia. There is a copious amount of whitish discharge within the vaginal vault. No cervical motion tenderness. No adnexal tenderness. NEURO: Patient was alert and oriented to person place and time. Medical Decision & Procedures ER Provider Diagnostic Interpretation: CT ABDOMEN & PELVIS: There are 2 nonobstructing stones in the upper pole of the left kidney measuring 5.5 mm and 2.5 mm. There is no evidence of hydronephrosis or obstructing urolithiasis. Status post cholecystectomy. Normal appendix. No diverticulitis or bowel obstruction. Radiologist: Naz Palacios MD Laboratory Results 03/28/17 00:15 Red Blood Count 4.37, Mean Corpuscular Volume 96.3, Mean Corpuscular Hemoglobin 33.6, Mean Corpuscular Hemoglobin Concent 34.9, Mean Platelet Volume 10.1, Neutrophils (%) (Auto) 57.7, Lymphocytes (%) (Auto) 31.8, Monocytes (%) (Auto) 7.8, Eosinophils (%) (Auto) 2.2, Basophils (%) (Auto) 0.1, Neutrophils # (Auto) 4.63, Lymphocytes # (Auto) 2.55, Monocytes # (Auto) 0.63, Eosinophils # (Auto) 0.18, Basophils # (Auto) 0.01 03/28/17 00:15 Test 03/27/17 00:15 03/28/17 00:15 03/28/17 01:55 Urine Color YELLOW Urine Appearance CLEAR (CLEAR) Urine pH 5.5 (4.5-7.5) Urine Specific Dunlap 1.027 (1.000-1.030) Urine Protein NEG (NEG) Urine Glucose (UA) NEG (NEG) Urine Ketones NEG (NEG) Urine Occult Blood NEG (NEG) Urine Nitrite NEG (NEG) Urine Bilirubin NEG (NEG) Urine Urobilinogen NEG (NEG) Urine Leukocyte Esterase SMALL (NEG) Urine WBC (Auto) 10-30 /hpf (0-5) Urine RBC (Auto) 0-4 /hpf (0-4) Urine Hyaline Casts (Auto) 1-5 /lpf (0-5) Urine Epithelial Cells (Auto) >30 /lpf (0-5) Urine Bacteria (Auto) NEG (NEG) Urine Crystals CALCIUM OXALATE (NONE Urine Test NEG (NEG) White Blood Count 8.03 K/uL (4.8-10.8) Red Blood Count 4.37 M/uL (4.2-5.4) Hemoglobin 14.7 g/dL (12.0-16.0) Hematocrit 42.1 % (37-47) Mean Corpuscular Volume 96.3 fL (80-100) Mean Corpuscular Hemoglobin 33.6 pg (25-34) Mean Corpuscular Hemoglobin Concent 34.9 g/dl (32-36) Platelet Count 188 K/uL (130-400) Mean Platelet Volume 10.1 fL (7.4-10.4) Neutrophils (%) (Auto) 57.7 % Lymphocytes (%) (Auto) 31.8 % Monocytes (%) (Auto) 7.8 % Eosinophils (%) (Auto) 2.2 % Basophils (%) (Auto) 0.1 % Neutrophils # (Auto) 4.63 K/uL (1.4-6.5) Lymphocytes # (Auto) 2.55 K/uL (1.2-3.4) Monocytes # (Auto) 0.63 K/uL (0.11-0.59) Eosinophils # (Auto) 0.18 K/uL (0-0.5) Basophils # (Auto) 0.01 K/uL (0-0.2) RDW Standard Deviation 45.1 fL (36.4-46.3) RDW Coefficient of Variation 12.7 % (11.5-14.5) Immature Granulocyte % (Auto) 0.4 % Immature Granulocyte # (Auto) 0.03 K/uL (0.00-0.02) Prothrombin Time 17.8 SECONDS (9.0-12.0) Prothromb Time International Ratio 1.6 (0.9-1.1) Activated Partial Thromboplast Time 27.7 SECONDS (21.0-31.0) Partial Thromboplastin Ratio 1.1 Anion Gap 5.0 mmol/L (3-11) Est Creatinine Clear Calc Drug Dose 80.4 ml/min Estimated GFR () 98.0 Estimated GFR (Non- 84.5 BUN/Creatinine Ratio 15.5 (10-20) Calcium Level 8.2 mg/dl (8.5-10.1) Total Bilirubin 0.1 mg/dl (0.2-1) Aspartate Amino Transf (AST/SGOT) 11 U/L (15-37) Alanine Aminotransferase (ALT/SGPT) 30 U/L (12-78) Alkaline Phosphatase 54 U/L (45-117) Total Protein 6.4 gm/dl (6.4-8.2) Albumin 3.2 gm/dl (3.4-5.0) Globulin 3.2 gm/dl (2.5-4.0) Albumin/Globulin Ratio 1.0 (0.9-2) Lipase 180 U/L (73-393) Date/Time Source Procedure Growth Status 03/28/17 01:55 Vaginal Swab Trichomonas Preparation - Final Complete Medications Administered Medications (Trade) Dose Ordered Sig/Cassy Route Start Time Stop Time Status Last Admin Dose Admin Sodium Chloride 1,000 ml @ 999 mls/hr Q1H1M STAT IV 03/27/17 23:57 03/28/17 00:57 DC 03/28/17 00:34 999 MLS/HR Ketorolac Tromethamine (Toradol Inj) 30 mg NOW STAT IV 03/27/17 23:57 03/27/17 23:59 DC 03/28/17 00:34 30 MG Ondansetron HCl (Zofran Inj) 4 mg NOW STAT IV 03/27/17 23:57 03/27/17 23:59 DC 03/28/17 00:35 4 MG Ondansetron HCl (Zofran Inj) 4 mg NOW STAT IV 03/28/17 01:17 03/28/17 01:18 DC 03/28/17 01:24 4 MG Promethazine HCl 12.5 mg/Sodium Chloride 50.5 ml @ 204 mls/hr NOW STAT IV 03/28/17 02:04 03/28/17 02:18 DC 03/28/17 03:20 204 MLS/HR Ceftriaxone Sodium (Rocephin Inj) 1 gm NOW STAT IV 03/28/17 02:07 03/28/17 02:13 DC 03/28/17 02:32 1 GM Azithromycin 500 mg/Dextrose 255 ml @ 125 mls/hr ONE ONCE IV 03/28/17 02:15 03/28/17 04:17 DC 03/28/17 03:52 125 MLS/HR Metronidazole (Flagyl Tab) 500 mg NOW STAT PO 03/28/17 03:41 03/28/17 03:43 DC 03/28/17 04:04 500 MG ED Course The patient was evaluated as above. Labs were drawn and IV access was obtained. Patient was medicated with IV fluids, Toradol and Zofran. Patient was still nauseated and was given an additional 4 mg Zofran. Findings of the CT scan were discussed with the patient and pelvic exam was performed at this time. She reports she is still nauseous. Phenergan was ordered. Patient was medicated with Rocephin, Zithromax and Flagyl. Patient was able to tolerate oral fluids as well as a sandwich. Discharge instructions were reviewed with the patient. The patient verbalized understanding of my assessment and treatment plan and was discharged home in good condition. Medical Decision Differential diagnosis includes kidney stone, pyelonephritis, PID, ovarian cyst , ovarian torsion, UTI, among others. The patient is a 46-year-old female who presents today complaining of persistent left flank pain and vomiting. Symptoms have been present for 2 weeks. I was able to obtain records from the [facility] office where the patient was seen. She was treated for cystitis at that time. Labs today revealed no leukocytosis, anemia or concerning electrolyte abnormalities. CT was performed and showed no acute findings. Pelvic exam did show a copious amount of discharge and I feel the patient should be treated for pelvic inflammatory disease. Cultures were obtained and are pending. Trichomonas were present. She will be given Rocephin, Zithromax and Flagyl. She was advised to have her INR followed very closely, as these medications can affect this. She felt much better after receiving antiemetics and was able to tolerate fluids and food by mouth. Her blood pressure was on the low side, however patient states this is her normal and review of the records does show that she seems to run slightly hypotensive. She was encouraged to increase fluids at home. Cultures are pending and she was advised to call for these results. She was also advised to speak with her partner, who should be treated for the Trichomonas and any other findings. The patient's case was reviewed with Dr. Borjas, ED attending physician, who agreed with my assessment and treatment plan. Based on the patient's presentation and work up, I feel the patient is stable for outpatient treatment. The patient was educated to return to the emergency department for any worsening of their current condition or new/concerning symptoms. She will follow up with her PCP. Medication Reconcilliation Current Medication List: was personally reviewed by me Blood Pressure Screening Patient's blood pressure: Low blood pressure (seems to be patient's baseline) Impression Primary Impression: Pelvic inflammatory disease Additional Impression: Trichomonas infection Departure Information Dispostion Home / Self-Care Condition GOOD Prescriptions Azithromycin (Zithromax) 250 Mg Tab 250 MG PO DAILY for 6 Days, #6 TAB Prov: Sobeida Allison .KASSY 03/28/17 Metronidazole (Flagyl) 500 Mg Tab 500 MG PO BID for 7 Days, #14 TAB Prov: Sobeida Allison PA-C 03/28/17 Referrals Rula Turpin M.D. (PCP) Patient Instructions [facility] Additional Instructions Antibiotics as described. For pain control, you can use the following [id number] medicines (if >12 yo): - Regular strength (325mg/tab) Tylenol (acetaminophen) 2 tabs every 4-6 hours as needed. Do not exceed 12 tablets in a 24 hour period. Avoid taking more than 4 grams (4000 mg) of Tylenol per day. This includes any other sources of acetaminophen you may take on a regular basis. - Regular strength (200 mg/tab) Advil (ibuprofen) 1-2 tabs every 4-6 hours as needed. Do not exceed a dose of 3200 mg per day. Follow-up with your primary care provider within 48 hours for a recheck. You should talk to your sexual partner, as he may be treated as well. Culture results will be available in 2-3 days. You may call for these results. Problem Qualifiers
[2017-03-28 05:48] VITALS: BP 96/63; PULSE 66; O2SAT 95
--- NOTE | 2017-03-28 07:16 | DIAGNOSTIC IMAGING REPORT ---
CT OF THE ABDOMEN AND PELVIS WITHOUT CONTRAST, STONE PROTOCOL CLINICAL HISTORY: Left flank pain. Urinary symptoms. History of stones. COMPARISON STUDY: CT of the abdomen and pelvis December 03, 2014 and pelvic ultrasound February 19, 2017. TECHNIQUE: Helical axial images of the abdomen and pelvis were obtained without IV or oral contrast according to renal stone protocol. A dose lowering technique was utilized adhering to the principles of ALARA. FINDINGS: 2 calculi within the upper pole of the left kidney measure up to 6 mm. There are no ureteral calculi and there is no hydronephrosis. A few small pulmonary nodules within visualized portions of the lungs are unchanged from earlier exams. These are benign given stability. Evaluation of the abdomen and pelvis is suboptimal on this unenhanced exam. There is no biliary ductal dilatation status post cholecystectomy. The liver, spleen, adrenal glands and pancreas are normal. There is no evidence for a bowel obstruction. The appendix is normal. No ascites or abscess is present. There are no suspicious skeletal lesions. No lymphadenopathy is present. IMPRESSION: 1. Left-sided nephrolithiasis. No ureteral calculi or hydronephrosis. 2. No acute process within the abdomen or pelvis on unenhanced exam. Electronically signed by: Louis Roberts M.D. 03/28/2017 7:15 AM Dictated Date/Time: 03/28/2017 7:09 AM
[2017-03-30 02:55] LABS: CHLAMYDIA TRACH RNA*** NOT DETECTED (NOT DETECTED); GC (NEIS GONORRHOEAE)RNA** NOT DETECTED (NOT DETECTED)
== END 2017-03-28 06:09 | disposition home or self-care (01) ==
LOC: C.EDB 23:05
DX: N73.8 Other specified female pelvic inflammatory diseases (principal); A59.01 Trichomonal vulvovaginitis; N20.0 Calculus of kidney; D68.51 Activated protein C resistance; Z79.01 Long term (current) use of anticoagulants; F31.9 Bipolar disorder, unspecified; F32.9 Major depressive disorder, single episode, unspecified; F17.200 Nicotine dependence, unspecified, uncomplicated; Z86.718 Personal history of other venous thrombosis and embolism; G40.909 Epilepsy, unspecified, not intractable, without status epilepticus; Z84.1 Family history of disorders of kidney and ureter; Z79.899 Other long term (current) drug therapy

== ENCOUNTER 2017-04-07 07:04 | Emergency (ER) | payer OTHER ==
[~2017-04-07] VITALS: Ht 157.5 cm; Wt 68.2 kg
[~2017-04-07 07:04] MED LIST changes: +ONDA4TAB46 PO
[2017-04-07 07:09] VITALS: TEMP 36.8; Ht 157.5 cm; Wt 68.2 kg
[2017-04-07 07:44] LABS: BASO % 0.3 %; BASO ABS # 0.03 K/uL (0-0.2); COMPLETE YES; HEMATOCRIT 47.4 % (37-47); IG% 0.3 %; LYMPH % 32.3 %; LYMPH ABS # 3.24 K/uL (1.2-3.4); MEAN CELL VOLUME 95.4 fL (80-100); MEAN CORPUSCULAR HEMOGLOBIN 34.4 pg (25-34); MEAN CORPUSCULAR HGB CONC 36.1 g/dl (32-36); MEAN PLATELET VOLUME 10.3 fL (7.4-10.4); MONO % 8.5 %; NEUT % 56.6 %; PLATELET COUNT 188 K/uL (130-400); RED BLOOD COUNT 4.97 M/uL (4.2-5.4); WHITE BLOOD COUNT 10.03 K/uL (4.8-10.8)
[2017-04-07 07:58] LABS: CALCIUM 8.4 mg/dl (8.5-10.1); CREATININE 0.98 mg/dl (0.60-1.20); POTASSIUM 3.1 mmol/L (3.5-5.1)
[2017-04-07 08:11] LABS: PARTIAL THROMBOPLASTIN RATIO 1.7; PROTHROMBIN TIME (PATIENT) 70.8 SECONDS (9.0-12.0)
[2017-04-07 08:14] LABS: INR 6.1 (0.9-1.1)
--- NOTE | 2017-04-07 08:28 | DIAGNOSTIC IMAGING REPORT ---
ULTRASOUND LEFT LOWER EXTREMITY VENOUS CLINICAL HISTORY: Left leg pain. COMPARISON STUDY: Left lower extremity venous ultrasound dated 07/25/2016. TECHNIQUE: Real-time, grayscale, and color Doppler sonography of the deep veins of the left lower extremity was performed from the inguinal crease to the calf. Compression and augmentation were utilized. FINDINGS: There the left lower extremity vessels appear diminutive. There is age indeterminant but chronic appearing nonocclusive deep venous thrombosis identified throughout the left lower extremity. This is seen within the common femoral, superficial femoral, and popliteal veins. Nonocclusive chronic appearing thrombus is also seen in the calf within the posterior tibial and peroneal veins. The greater saphenous vein and the profunda femoris vein at the junction with the common femoral vein are clear. IMPRESSION: There is age indeterminant but chronic appearing nonocclusive deep venous thrombosis seen throughout the left lower extremity as above. This is overall similar in appearance to the 07/25/2016 examination. Electronically signed by: Marcelino Causey M.D. 04/07/2017 8:26 AM Dictated Date/Time: 04/07/2017 8:21 AM
[2017-04-07] MEDS ORDERED: ONDANSETRON 4MG OD TAB PO STA (08:47)
[2017-04-07] MEDS ORDERED: SODIUM CHLORIDE 0.9% 1000ML 1,000 ML IV STA (09:05)
[2017-04-07] MEDS ORDERED: POTASSIUM CHLORIDE 10 MEQ TABCR PO STA (09:05)
[2017-04-07 10:49] VITALS: BP 114/69; PULSE 75; O2SAT 97
--- NOTE | 2017-04-07 17:02 | EMERGENCY ROOM VISIT NOTE ---
History First contact with patient: 07:18 Chief Complaint: LEG PAIN,LEG INJURY Stated Complaint: LEG PAIN- DVT? History of Present Illness The patient is a 46 year old white female who presents to the Emergency Room with complaints of left leg pain that started yesterday. She is concerned about a DVT. She has had DVTs in both lower extremities previously. The left leg last had a DVT in June. She is on chronic Coumadin due to factor V Leiden deficiency. She denies any trauma to the leg. She notes that the ankle is more swollen than the right side. She denies any shortness of breath but states she has had difficulty taking a deep breath. She is also nauseated. No other cold symptoms. She did work 16 hours yesterday and is unsure if this is related. No dizziness or vomiting. No chest pain or cough. No symptoms on the right leg. No other complaints. Review of Systems REVIEW OF SYSTEM: HEENT: No dizziness, visual problems, hearing loss, or tinnitus. There is no difficulty swallowing and no oral lesions are present. LYMPH: No adenopathy. PULMONARY: No cough, shortness of breath, sputum production or hemoptysis. CARDIOVASCULAR: No chest pain, palpitations, shortness of breath. Positive left leg peripheral edema. Positive history of DVT and PE. GASTROINTESTINAL: No diarrhea, constipation, nausea, vomiting, or abdominal pain. GENITOURINARY: No dysuria, frequency, urgency or nocturia. NEUROLOGIC: No weakness, muscle tenderness, or history of neurological problems. MUSCULOSKELETAL: No history of joint tenderness/swelling. No history of arthritis or arthralgias. SKIN: No rashes or lesions. PSYCHIATRIC: Positive history of depression and bipolar disorder. ENDOCRINE: No history of diabetes, thyroid disorders, or abnormal hair growth. 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 (13) Multiple pulmonary emboli (14) Right leg pain (15) Seizure (16) Tobacco abuse Surgical Problems: (1) H/O tubal ligation (2) History of cholecystectomy (3) Hx of tonsillectomy (4) Tubal Ligation Status Family History FH: cancer Gallbladder disease Kidney disease Kidney stones Social History Smoking Status: Current Some Day Smoker Smokeless Tobacco Use: No Alcohol Use: none Drug Use: none Marital Status: Housing Status: lives with family Occupation Status: employed Current/Historical Medications Scheduled Omeprazole (Prilosec), 40 MG PO DAILY Topiramate (Topamax), 400 MG PO QAM Warfarin Sodium (Coumadin), 5 MG PO 5XWK Warfarin Sodium (Coumadin), 7.5 MG PO 2XWK Scheduled PRN Albuterol Hfa (Ventolin Hfa), 2 PUFFS INH QID PRN for SOB/Wheezing Lorazepam (Lorazepam), 0.5 MG PO Q8 PRN for Anxiety/Insomnia Ondansetron Hcl (Zofran), 4 MG PO Q6 PRN for Nausea Sumatriptan Succinate (Sumatriptan Succinate), 50 MG PO UD PRN for Migraine Physical Exam Vital Signs Date Time Temp Pulse Resp B/P (MAP) Pulse Ox O2 Delivery O2 Flow Rate FiO2 04/07/17 10:49 75 114/69 97 Room Air 04/07/17 08:20 74 20 90/68 97 Room Air 04/07/17 07:09 36.8 87 20 119/83 98 Room Air Physical Exam Gen: Well-developed, well-nourished, middle-aged white female, in no acute distress. Laying on a bed. Alert and oriented. Skin:Warm and dry with good turgor. No rashes or lesions. No ecchymosis or erythema. The patient is not diaphoretic. No abrasions. Mild left lower extremity peripheral edema. No palpable cords. Heart: Heart RRR. No MGR. Peripheral pulses are 2+. Lungs: Lungs are clear to auscultation. No crackles rhonchi or wheezing. Good air movement. The patient is able to take a deep breath. Abdomen: Abdomen was inspected, auscultated, and palpated. Bowel sounds present x 4. Soft, nontender to palpation. No hepato-splenomegaly. No masses noted. No rebound, negative Marinelli sign. No pain over McBurney's point. No CVA tenderness. Musculoskeletal: Left lower extremity reveals above-stated edema. Mild bruising on the inner aspect of her left thigh. She has discomfort with Homans testing. She is sore with palpation over the abductors of the left thigh. Full extension of the left knee. She describes discomfort with palpation over the hamstring tendons distally. Supple motion of the hip and knee. No discomfort with motion of the right hip and knee. Neurologic: Gross sensation is intact across the lower extremities by soft touch. Peripheral pulses are 2+. Medical Decision & Procedures ER Provider Diagnostic Interpretation: Ultrasound imaging of the left lower extremity was read by radiology as positive for chronic DVT from the calf to the groin. It is unchanged from her previous ultrasound in June. It is nonocclusive. Laboratory Results 04/07/17 07:30 Red Blood Count 4.97, Mean Corpuscular Volume 95.4, Mean Corpuscular Hemoglobin 34.4, Mean Corpuscular Hemoglobin Concent 36.1, Mean Platelet Volume 10.3, Neutrophils (%) (Auto) 56.6, Lymphocytes (%) (Auto) 32.3, Monocytes (%) (Auto) 8.5, Eosinophils (%) (Auto) 2.0, Basophils (%) (Auto) 0.3, Neutrophils # (Auto) 5.68, Lymphocytes # (Auto) 3.24, Monocytes # (Auto) 0.85, Eosinophils # (Auto) 0.20, Basophils # (Auto) 0.03 04/07/17 07:30 Test 04/07/17 07:30 White Blood Count 10.03 K/uL (4.8-10.8) Red Blood Count 4.97 M/uL (4.2-5.4) Hemoglobin 17.1 g/dL (12.0-16.0) Hematocrit 47.4 % (37-47) Mean Corpuscular Volume 95.4 fL (80-100) Mean Corpuscular Hemoglobin 34.4 pg (25-34) Mean Corpuscular Hemoglobin Concent 36.1 g/dl (32-36) Platelet Count 188 K/uL (130-400) Mean Platelet Volume 10.3 fL (7.4-10.4) Neutrophils (%) (Auto) 56.6 % Lymphocytes (%) (Auto) 32.3 % Monocytes (%) (Auto) 8.5 % Eosinophils (%) (Auto) 2.0 % Basophils (%) (Auto) 0.3 % Neutrophils # (Auto) 5.68 K/uL (1.4-6.5) Lymphocytes # (Auto) 3.24 K/uL (1.2-3.4) Monocytes # (Auto) 0.85 K/uL (0.11-0.59) Eosinophils # (Auto) 0.20 K/uL (0-0.5) Basophils # (Auto) 0.03 K/uL (0-0.2) RDW Standard Deviation 43.6 fL (36.4-46.3) RDW Coefficient of Variation 12.7 % (11.5-14.5) Immature Granulocyte % (Auto) 0.3 % Immature Granulocyte # (Auto) 0.03 K/uL (0.00-0.02) Prothrombin Time 70.8 SECONDS (9.0-12.0) Prothromb Time International Ratio 6.1 (0.9-1.1) Activated Partial Thromboplast Time 44.4 SECONDS (21.0-31.0) Partial Thromboplastin Ratio 1.7 Anion Gap 6.0 mmol/L (3-11) Est Creatinine Clear Calc Drug Dose 66.3 ml/min Estimated GFR () 81.3 Estimated GFR (Non- 70.2 BUN/Creatinine Ratio 14.0 (10-20) Calcium Level 8.4 mg/dl (8.5-10.1) CBC and PRP were obtained. CBC shows mild elevation in H&H. Mild hypokalemia at 3.1. PT/INR was also obtained. INR is significantly elevated at 6.1. Medications Administered Medications (Trade) Dose Ordered Sig/Cassy Route Start Time Stop Time Status Last Admin Dose Admin Ondansetron HCl (Zofran Odt) 4 mg NOW STAT PO 04/07/17 08:47 04/07/17 08:48 DC 04/07/17 08:53 4 MG Sodium Chloride 1,000 ml @ 999 mls/hr Q1H1M STAT IV 04/07/17 09:05 04/07/17 10:05 DC 04/07/17 09:32 999 MLS/HR Potassium Chloride (Klor-Con M10) 20 meq NOW STAT PO 04/07/17 09:05 04/07/17 09:07 DC 04/07/17 09:32 20 MEQ Zofran 4 mg IV, 1 L normal sterile saline IV bolus, potassium 20meq orally ED Course Patient was educated regarding today's findings. Conservative care measures were discussed. IV was established. Labs were obtained. Her BP remained somewhat low. She was given a liter of normal sterile saline IV bolus. Pressures increased. She was noted to have mildly low potassium. She was given 20meq oral supplement. Continue with high potassium foods in her diet for the next few days. INR was found to be supratherapeutic at 6.1. I did speak with the pharmacy regarding appropriate dosing. She had been taking 2.5 mg daily while on her antibiotics. Yesterday she took 5 mg. They recommended reducing to 2.5 mg daily again for the next 3 days and then have her INR rechecked at the Coumadin clinic. Patient is aware. She was reassured that I find no evidence for acute DVT with her scan. Possibility of muscle strain was discussed. Her peripheral edema is likely due to the chronic DVT in her left leg. Follow-up with her PCP. Return to the ED for any acute changes. Care plan was discussed with Dr. Borjas. Medical Decision Possibility of DVT, PE, acute respiratory illness, dehydration, acute viral illness, and vascular insufficiency were considered among others. Medication Reconcilliation Current Medication List: was personally reviewed by me Blood Pressure Screening Patient's blood pressure: Low blood pressure Impression Primary Impression: Hypokalemia Additional Impression: Leg pain, left Departure Information Dispostion Home / Self-Care Referrals Rula Turpin M.D. (PCP) Forms HOME CARE DOCUMENTATION FORM, IMPORTANT VISIT INFORMATION Patient Instructions My [facility] Additional Instructions Resume Coumadin 2.5 mg daily Follow-up with the Coumadin clinic within the next 2 days for a recheck of her INR and adjustment of your Coumadin Maintain hydration Gentle stretching daily Return to the ED for any other concerns Problem Qualifiers
== END 2017-04-07 11:18 | disposition home or self-care (01) ==
LOC: C.EDB 07:05 → C.EDA 11:18
DX: M79.605 Pain in left leg (principal); E87.6 Hypokalemia; Z86.718 Personal history of other venous thrombosis and embolism; Z79.01 Long term (current) use of anticoagulants; D68.2 Hereditary deficiency of other clotting factors; J45.909 Unspecified asthma, uncomplicated; F31.9 Bipolar disorder, unspecified; G40.909 Epilepsy, unspecified, not intractable, without status epilepticus; Z86.711 Personal history of pulmonary embolism; Z98.51 Tubal ligation status; Z90.49 Acquired absence of other specified parts of digestive tract; Z80.9 Family history of malignant neoplasm, unspecified; Z84.1 Family history of disorders of kidney and ureter; F17.210 Nicotine dependence, cigarettes, uncomplicated; Z79.899 Other long term (current) drug therapy

== ENCOUNTER 2017-05-03 21:58 | Inpatient (IN) | payer OTHER ==
[~2017-05-03] VITALS: Ht 157.5 cm; Wt 69.6 kg
[~2017-05-03 21:58] MED LIST changes: -OXYC-643 PO
[2017-05-03] MEDS ORDERED: ONDANSETRON 8 MG/54 ML D5W IV STA (22:48)
[2017-05-03] MEDS ORDERED: SODIUM CHLORIDE 0.9% 1000ML 1,000 ML IV STA (22:48)
[2017-05-03] MEDS ORDERED: HYDROmorphone INJ 0.5 MG/0.5 ML SYR IV STA (22:48)
[2017-05-03] MEDS ORDERED: HYDR-5688 PO (23:04)
[2017-05-03] MEDS ORDERED: OPTIRAY 320 IV PRN (23:15)
[2017-05-03 23:21] LABS: BASO % 0.2 %; BASO ABS # 0.02 K/uL (0-0.2); COMPLETE YES; EOS % 0.8 %; HEMATOCRIT 42.7 % (37-47); IG% 0.4 %; LYMPH % 15.5 %; LYMPH ABS # 1.85 K/uL (1.2-3.4); MEAN CELL VOLUME 96.2 fL (80-100); MEAN CORPUSCULAR HEMOGLOBIN 35.4 pg (25-34); MEAN CORPUSCULAR HGB CONC 36.8 g/dl (32-36); MEAN PLATELET VOLUME 10.4 fL (7.4-10.4); MONO % 8.5 %; NEUT % 74.6 %; PLATELET COUNT 145 K/uL (130-400); RED BLOOD COUNT 4.44 M/uL (4.2-5.4); WHITE BLOOD COUNT 11.94 K/uL (4.8-10.8)
[2017-05-03 23:31] LABS: INR 1.2 (0.9-1.1); PROTHROMBIN TIME (PATIENT) 12.7 SECONDS (9.0-12.0)
[2017-05-03 23:39] LABS: ALT/SGPT 21 U/L (12-78); AST/SGOT 13 U/L (15-37); BLOOD UREA NITROGEN 11 mg/dl (7-18); BUN/CREATININE RATIO 10.8 (10-20); CALCIUM 8.4 mg/dl (8.5-10.1); CARBON DIOXIDE 23 mmol/L (21-32); CHLORIDE 107 mmol/L (98-107); CREATININE 0.99 mg/dl (0.60-1.20); GLUCOSE 101 mg/dl (70-99); POTASSIUM 3.5 mmol/L (3.5-5.1); SODIUM 138 mmol/L (136-145)
[2017-05-03 23:42] LABS: ALKALINE PHOSPHATASE 52 U/L (45-117)
[2017-05-03 23:43] LABS: PREG INTERNAL NEGATIVE QC NEG CLEAR BACKGROUND; PREG INTERNAL POSITIVE QC POS CONTROL LINE
[2017-05-04] MEDS ORDERED: SODIUM CHLORIDE 0.9% 1000ML 1,000 ML IV STA (02:06)
[2017-05-04 02:08] LABS: URINE APPEARANCE CLEAR (CLEAR); URINE BILIRUBIN NEG (NEG); URINE COLOR YELLOW; URINE EPITHELIAL CELL AUTO >30 /lpf (0-5); URINE NITRITE NEG (NEG); URINE PH 6.5 (4.5-7.5); URINE SPECIFIC GRAVITY 1.042 (1.000-1.030); UROBILINOGEN NEG (NEG); ZZUR CULT IF INDIC CLEAN CATCH NO
[2017-05-04 02:12] LABS: MANUAL MICROSCOPIC REQUIRED? NO; REVIEW REQ? YES
[2017-05-04] MEDS ORDERED: DOXYCYCLINE IV 100 MG in DEXTROSE 5% 100ML 100 ML IV STA (02:20)
[2017-05-04] MEDS ORDERED: CEFOXITIN 2000MG/60 ML D5W IV STA (02:20)
[2017-05-04] MEDS ORDERED: ONDANSETRON 4 MG TAB PO PRN (03:30)
[2017-05-04] MEDS ORDERED: HYDROCODONE/ACETAMOPHEN 5/325MG TAB ONE (03:37)
--- NOTE | 2017-05-04 04:37 | EMERGENCY ROOM VISIT NOTE ---
History Report prepared by Sarbjit: Leyda Alfred Under the Supervision of: Dr. Eros Davies M.D. First contact with patient: 22:37 Chief Complaint: PELVIC PAIN Stated Complaint: IV ABX History of Present Illness The patient is a 46 year old female who presents to the Emergency Room with complaints of constant pelvic pain 2 days ago. The patient states that she was notified that she was exposed to Gonorrhea 3 days ago. She reports that this evening she went to [facility] and had a pelvic exam done. She states that they found purulent discharge and a pelvic infection. She notes that the pelvic examination was uncomfortable and painful. The patient states the doctor there was worried about PID. She states that she was given a shot of Rocephin, but could not be put on the antibiotic that was the best course of treatment because she has Factor 5 and is on Coumadin. She states that she was told to come to the ED to receive IV antibiotics. She complains of nausea, headache, fever, chills, and lower abdominal pain that radiates to her back. She states that she feels bloated. She currently rates her pain as a 7/10 in severity. The patient notes that she has not been urinating much, but believes it is from the lack of eating or drinking recently. The patient states that she took Tylenol with little relief. Pt denies LOC, diaphoresis, visual changes, neck pain, chest pain, breathing difficulties, vomiting, abdominal pain, melena, hematochezia, numbness, weakness , lymphadenopathy, rash, or other complaints. Source of History: patient Onset: 2 days ago Position: pelvis Symptom Intensity: 7/10 Quality: other (bloated) Timing: constant Modifying Factors (Relieving): tylenol Associated Symptoms: + fevers, + chills, + headache, + nausea, + abdominal pain, + back pain, + urinary symptoms Review of Systems See HPI for pertinent positives and negatives. A total of ten systems were reviewed and were otherwise negative. Past Medical & Surgical Medical Problems: (1) Anticoagulated on warfarin (2) Asthma, Unspecified (3) Bipolar Disorder, Unspecified (4) Common Migraine W/O Intractable Migraine (5) Depression (6) DVT of lower extremity (deep venous thrombosis) (7) Epilepsy, Unsp, Not Intractable, Without Status Epilepticus (8) Factor V Leiden (9) Factor V Leiden (10) GI bleed (11) Kidney stone (12) Group Home (Current) Use Of 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 (13) Multiple pulmonary emboli (14) Pelvic pain (15) Right leg pain (16) Seizure (17) Suicidal ideation (18) Tobacco abuse (19) Ulcerative colitis Surgical Problems: (1) H/O tubal ligation (2) History of cholecystectomy (3) Hx of tonsillectomy (4) Tubal Ligation Status Family History FH: cancer Gallbladder disease Kidney disease Kidney stones Social History Smoking Status: Current Some Day Smoker Alcohol Use: none Drug Use: none Marital Status: Housing Status: lives with family Occupation Status: employed Current/Historical Medications Scheduled Omeprazole (Prilosec), 40 MG PO DAILY Topiramate (Topamax), 400 MG PO QAM Warfarin Sodium (Coumadin), 5 MG PO DAILY Scheduled PRN Albuterol Hfa (Ventolin Hfa), 2 PUFFS INH QID PRN for SOB/Wheezing Hydrocodone/Acetaminophen 5MG/325MG ([place] 5MG/325MG), 1 TABLET PO Q6 PRN for Pain Lorazepam (Lorazepam), 0.5 MG PO Q8 PRN for Anxiety/Insomnia Ondansetron Hcl (Zofran), 4 MG PO Q6 PRN for Nausea Sumatriptan Succinate (Sumatriptan Succinate), 50 MG PO UD PRN for Migraine Allergies Coded Allergies: Morphine (Verified Allergy, Intermediate, chest pain; trouble breathing, 05/03/17) Chocolate (Verified Allergy, Unknown, 05/03/17) Kiwi (Verified Allergy, Unknown, ANAPHYLAXIS, 05/03/17) NUTS (Unverified Allergy, Unknown, ANAPHYLAXIS, 05/03/17) Peanut (Verified Allergy, Unknown, 05/03/17) Prochlorperazine (Verified Allergy, Unknown, SEVERE ALLERGIC RXN, 05/03/17) Physical Exam Vital Signs Date Time Temp Pulse Resp B/P (MAP) Pulse Ox O2 Delivery O2 Flow Rate FiO2 05/04/17 04:01 103/67 97 Room Air 05/04/17 04:00 83 19 05/04/17 03:46 106/64 05/04/17 03:31 87/53 05/04/17 03:30 81 18 05/04/17 03:18 81 05/04/17 03:16 103/49 05/04/17 03:01 99/48 05/04/17 03:00 86 18 05/04/17 02:36 36.9 82 16 103/73 96 Room Air 05/04/17 02:14 85 16 117/71 96 Room Air 05/04/17 01:03 89 16 95/46 95 Room Air 05/04/17 00:51 92 16 89/56 97 Room Air 05/04/17 00:30 87 18 83/59 94 Room Air 82/60 05/03/17 23:38 96 05/03/17 23:32 95 16 105/63 96 Room Air 05/03/17 22:14 38.1 103 18 109/78 97 Room Air Physical Exam GENERAL: Awake, alert, uncomfortable-appearing, in no distress HENT: Normocephalic, atraumatic. Oropharynx unremarkable. EYES: Normal conjunctiva. Sclera non-icteric. NECK: Supple. No nuchal rigidity. FROM. No JVD. RESPIRATORY: Clear to auscultation. CARDIAC: Regular rate, normal rhythm. Extremities warm and well perfused. Pulses equal. ABDOMEN: Soft, non-distended. RLQ, LLQ, and suprapubic tenderness to palpation. No rebound or guarding. No masses. RECTAL: Deferred. MUSCULOSKELETAL: Chest examination reveals no tenderness. The back is symmetrical on inspection without obvious abnormality. There is no CVA tenderness to palpation. No joint edema. LOWER EXTREMITIES: Calves are equal size bilaterally and non-tender. No edema. No discoloration. NEURO: Normal sensorium. No sensory or motor deficits noted. SKIN: No rash or jaundice noted. Medical Decision & Procedures ER Provider Diagnostic Interpretation: Radiology results as stated below per my review and radiologist interpretation: CT ABDOMEN & PELVIS With Contrast: Unremarkable appendix. No colitis or bowel obstruction. Small hiatal hernia. Cholecystectomy. Nonobstructing left renal stones. Radiologist: Balta Toscano M.D. Study ready at 00:33 and initial results transmitted at 00:51. Laboratory Results 05/03/17 23:09 Red Blood Count 4.44, Mean Corpuscular Volume 96.2, Mean Corpuscular Hemoglobin 35.4, Mean Corpuscular Hemoglobin Concent 36.8, Mean Platelet Volume 10.4, Neutrophils (%) (Auto) 74.6, Lymphocytes (%) (Auto) 15.5, Monocytes (%) (Auto) 8.5, Eosinophils (%) (Auto) 0.8, Basophils (%) (Auto) 0.2, Neutrophils # (Auto) 8.92, Lymphocytes # (Auto) 1.85, Monocytes # (Auto) 1.01, Eosinophils # (Auto) 0.09, Basophils # (Auto) 0.02 05/03/17 23:09 Test 05/03/17 23:09 05/04/17 01:50 05/04/17 02:24 White Blood Count 11.94 K/uL (4.8-10.8) Red Blood Count 4.44 M/uL (4.2-5.4) Hemoglobin 15.7 g/dL (12.0-16.0) Hematocrit 42.7 % (37-47) Mean Corpuscular Volume 96.2 fL (80-100) Mean Corpuscular Hemoglobin 35.4 pg (25-34) Mean Corpuscular Hemoglobin Concent 36.8 g/dl (32-36) Platelet Count 145 K/uL (130-400) Mean Platelet Volume 10.4 fL (7.4-10.4) Neutrophils (%) (Auto) 74.6 % Lymphocytes (%) (Auto) 15.5 % Monocytes (%) (Auto) 8.5 % Eosinophils (%) (Auto) 0.8 % Basophils (%) (Auto) 0.2 % Neutrophils # (Auto) 8.92 K/uL (1.4-6.5) Lymphocytes # (Auto) 1.85 K/uL (1.2-3.4) Monocytes # (Auto) 1.01 K/uL (0.11-0.59) Eosinophils # (Auto) 0.09 K/uL (0-0.5) Basophils # (Auto) 0.02 K/uL (0-0.2) RDW Standard Deviation 43.9 fL (36.4-46.3) RDW Coefficient of Variation 12.6 % (11.5-14.5) Immature Granulocyte % (Auto) 0.4 % Immature Granulocyte # (Auto) 0.05 K/uL (0.00-0.02) Prothrombin Time 12.7 SECONDS (9.0-12.0) Prothromb Time International Ratio 1.2 (0.9-1.1) Activated Partial Thromboplast Time 26.2 SECONDS (21.0-31.0) Partial Thromboplastin Ratio 1.0 Anion Gap 8.0 mmol/L (3-11) Est Creatinine Clear Calc Drug Dose 65.6 ml/min Estimated GFR () 80.3 Estimated GFR (Non- 69.3 BUN/Creatinine Ratio 10.8 (10-20) Calcium Level 8.4 mg/dl (8.5-10.1) Total Bilirubin 0.3 mg/dl (0.2-1) Direct Bilirubin < 0.1 mg/dl (0-0.2) Aspartate Amino Transf (AST/SGOT) 13 U/L (15-37) Alanine Aminotransferase (ALT/SGPT) 21 U/L (12-78) Alkaline Phosphatase 52 U/L (45-117) Total Protein 6.9 gm/dl (6.4-8.2) Albumin 3.3 gm/dl (3.4-5.0) Lipase 194 U/L (73-393) Human Chorionic Gonadotropin, Qual NEG (NEG) Urine Color YELLOW Urine Appearance CLEAR (CLEAR) Urine pH 6.5 (4.5-7.5) Urine Specific [place] 1.042 (1.000-1.030) Urine Protein NEG (NEG) Urine Glucose (UA) NEG (NEG) Urine Ketones NEG (NEG) Urine Occult Blood NEG (NEG) Urine Nitrite NEG (NEG) Urine Bilirubin NEG (NEG) Urine Urobilinogen NEG (NEG) Urine Leukocyte Esterase SMALL (NEG) Urine WBC (Auto) 1-5 /hpf (0-5) Urine RBC (Auto) 0-4 /hpf (0-4) Urine Hyaline Casts (Auto) 1-5 /lpf (0-5) Urine Epithelial Cells (Auto) >30 /lpf (0-5) Urine Bacteria (Auto) NEG (NEG) Bedside Lactic Acid Venous 1.12 mmol/L (0.90-1.70) Laboratory results reviewed by me Medications Administered Medications (Trade) Dose Ordered Sig/Cassy Route Start Time Stop Time Status Last Admin Dose Admin Sodium Chloride 1,000 ml @ 999 mls/hr Q1H1M STAT IV 05/03/17 22:48 05/03/17 23:48 DC 05/03/17 23:28 999 MLS/HR Ondansetron HCl (Zofran 8mg Iv) 8 mg NOW STAT IV 05/03/17 22:48 05/03/17 22:54 DC 05/03/17 23:28 8 MG Hydromorphone HCl (Dilaudid Inj) 0.5 mg NOW STAT IV 05/03/17 22:48 05/03/17 22:54 DC 05/03/17 23:28 0.5 MG Sodium Chloride 1,000 ml @ 999 mls/hr Q1H1M STAT IV 05/04/17 02:06 05/04/17 03:06 DC 05/04/17 02:35 999 MLS/HR Cefoxitin Sodium (Mefoxin 2000mg/ 60 ml D5W) 2,000 mg NOW STAT IV 05/04/17 02:20 05/04/17 02:26 DC 05/04/17 03:15 2,000 MG Doxycycline Hyclate 100 mg/ Dextrose 110 ml @ 50 mls/hr NOW STAT IV 05/04/17 02:20 05/04/17 04:31 DC 05/04/17 03:42 50 MLS/HR Acetaminophen/ Hydrocodone Bitart ([place] 5/325 Tab) 1 tab STK-MED ONCE .ROUTE 05/04/17 03:37 05/04/17 03:38 DC 05/04/17 03:41 1 TAB ED Course 2245: The patient was evaluated in room A2. A complete history and physical exam was performed. 2248: Ordered Dilaudid Inj 0.5 mg IV, Ondansetron HCl 8 mg IV, NSS 1000 ml @ 999 mls/hr IV. 0215: Reassessed the patient. Discussed the findings. Discussed treatment in the hospital. 0220: Consulted with internal medicine. Discussed the case with Dr. Leon. He will see the patient. Medical Decision Triage Nursing notes reviewed. The patient's presentation and history were concerning for possible PID Etiologies such as PID, tubo-ovarian abscess, appendicitis, diverticulitis, obstruction, inflammatory bowel disease, renal colic, PUD, biliary pathology, pancreatitis, mesenteric ischemia, aortic pathology, infections, genitourinary, UTI, perforated viscus, as well as others were entertained. The patient was evaluated. She was treated with IV fluids, Zofran, and Dilaudid. She was feeling better with this. She still had lower abdominal pain. Blood work revealed a leukocytosis. Chemistry panel was unremarkable. The patient had a CT performed which did not reveal any acute findings. She had mildly low blood pressure was noted. She was given additional fluids. The patient mentioned to nursing that she was having thoughts of hurting herself due to the recent passing of her daughter and mother. She was evaluated by the psychiatric counseling case manager and they were concerned about her suicide risk. The patient was given IV Mefoxin and IV doxycycline for her suspected PID. I did consult with internal medicine. Psychiatry will be consulted. Internal medicine will consult with COMMUNICATIONS TECHNICIAN if necessary. The patient felt comfortable with the plan. The patient was evaluated in the Emergency Room by internal medicine for further management. Consults Consulting Physician: Dr. Leon Impression Primary Impression: PID (acute pelvic inflammatory disease) Additional Impressions: Lower abdominal pain Suicidal ideation Scribe Attestation The scribe's documentation has been prepared under my direction and personally reviewed by me in its entirety. I confirm that the note above accurately reflects all work, treatment, procedures, and medical decision making performed by me. Departure Information Dispostion Being Evaluated By Hospitalist Referrals No Doctor, Assigned (PCP) Patient Instructions My [facility] Problem Qualifiers
[2017-05-04] MEDS ORDERED: HYDROmorphone INJ 0.5 MG/0.5 ML SYR ONE (04:44)
[2017-05-04] MEDS ORDERED: HYDROmorphone INJ 0.5 MG/0.5 ML SYR IV ONE (04:45)
[2017-05-04 05:40] VITALS: BP 105/70; PULSE 80; TEMP 37; O2SAT 96; Ht 157.5 cm; Wt 69.6 kg
--- NOTE | 2017-05-04 06:34 | History and Physical ---
History & Physical Date & Time of Service: May 04, 2017 at 05:36 Chief Complaint: Pelvic Pain, Suididal Ideation Primary Care Physician: No Doctor, Assigned History of Present Illness Source: patient, clinic records, hospital records 46 year old female with PMH Factor v Leiden, multiple episode of PE/DVT on coumadin, seizure presents to the Emergency Room after sending from [facility] for pelvic pain for the past 2 days. Pt said that her partner just diagnosed with gonorrhea 3 days ago. She said that she went to [facility] one last night because she had been having b/l pelvis pain that radiated to her back. Pain is constant, 10/10. She has been having fever and chills. She took tylenol with no relief. Pt said that she develops a burning pain when she finished to urinate. She had a pelvis exam done at the [facility] that shown normal anatomy and no cervical motion tenderness. She said that that she was given a shot of Rocephin, and they could not put her on oral antibiotic because she is on coumadin as per patient. She states that she was told to come to the ED to receive IV antibiotics. In the ER she had a CT abd/pelvis done with preliminary report showed no colitis or bowel obstruction and nonobstructing left renal stones. Received IV doxycycline and cefoxitin in the ER. while in the ER, Pt said that she feels very depressed. She buried her mother 3 weeks ago and yesterday she buried her 24 y/o daughter that was found on the kitchen floor. Pt said that if she goes home she would ingest pills to try to kill herself, She has been having suicide ideations. Denies any chest pain, palpitation, dizziness and SOB. 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 (13) Multiple pulmonary emboli Status: Resolved (14) Right leg pain Status: Resolved (15) Seizure Status: Chronic (16) Tobacco abuse Status: Chronic Surgical Problems: (1) H/O tubal ligation Status: Chronic (2) History of cholecystectomy Status: Chronic (3) Hx of tonsillectomy Status: Chronic (4) Tubal Ligation Status Status: Resolved Family History FH: cancer Gallbladder disease Kidney disease Kidney stones Social History Smoking Status: Current Some Day Smoker Drug Use: none Marital Status: Housing status: lives with family Occupational Status: employed Immunizations History of Influenza Vaccine: Unknown History of Tetanus Vaccine?: Unknown History of Pneumococcal: No History of Hepatitis B Vaccine: Unknown Multi-Drug Resistant Organisms History of MDRO: No Allergies Coded Allergies: Morphine (Verified Allergy, Intermediate, chest pain; trouble breathing, 05/03/17) Chocolate (Verified Allergy, Unknown, 05/03/17) Kiwi (Verified Allergy, Unknown, ANAPHYLAXIS, 05/03/17) NUTS (Unverified Allergy, Unknown, ANAPHYLAXIS, 05/03/17) Peanut (Verified Allergy, Unknown, 05/03/17) Prochlorperazine (Verified Allergy, Unknown, SEVERE ALLERGIC RXN, 05/03/17) Home Medications Scheduled Omeprazole (Prilosec), 40 MG PO DAILY Topiramate (Topamax), 400 MG PO QAM Warfarin Sodium (Coumadin), 5 MG PO DAILY Scheduled PRN Albuterol Hfa (Ventolin Hfa), 2 PUFFS INH QID PRN for SOB/Wheezing Hydrocodone/Acetaminophen 5MG/325MG ([place] 5MG/325MG), 1 TABLET PO Q6 PRN for Pain Lorazepam (Lorazepam), 0.5 MG PO Q8 PRN for Anxiety/Insomnia Ondansetron Hcl (Zofran), 4 MG PO Q6 PRN for Nausea Sumatriptan Succinate (Sumatriptan Succinate), 50 MG PO UD PRN for Migraine Review of Systems Constitutional: + fever, + chills Eyes: No worsening of vision, No eye pain, No diplopia ENT: No hearing loss, No nasal symptoms Respiratory: No sputum, No wheezing, No shortness of breath Cardiovascular: No chest pain, No claudication, No palpitations Abdomen: No nausea, No vomiting Musculoskeletal: + joint pain, No calf pain Genitourinary - Female: + dysuria Neurologic: No paralysis, No weakness Psychiatric: + depression symptoms, + anxiety Endocrine: No excessive thirst Hematologic / Lymphatic: No abnormal bleeding/bruising Integumentary: No rash, No itch Physical Exam Vital Signs Date Time Temp Pulse Resp B/P (MAP) Pulse Ox O2 Delivery O2 Flow Rate FiO2 05/04/17 05:15 81 18 87/56 93 05/04/17 04:01 103/67 97 Room Air 05/04/17 04:00 83 19 05/04/17 03:46 106/64 05/04/17 03:31 87/53 05/04/17 03:30 81 18 05/04/17 03:18 81 05/04/17 03:16 103/49 05/04/17 03:01 99/48 05/04/17 03:00 86 18 05/04/17 02:36 36.9 82 16 103/73 96 Room Air 05/04/17 02:14 85 16 117/71 96 Room Air 05/04/17 01:03 89 16 95/46 95 Room Air 05/04/17 00:51 92 16 89/56 97 Room Air 05/04/17 00:30 87 18 83/59 94 Room Air 82/60 05/03/17 23:38 96 05/03/17 23:32 95 16 105/63 96 Room Air 05/03/17 22:14 38.1 103 18 109/78 97 Room Air General Appearance: WD/WN, no apparent distress Head: normocephalic, atraumatic Eyes: PERRL, EOMI ENT: hearing grossly normal Neck: no JVD, trachea midline Respiratory/Chest: normal breath sounds, no respiratory distress, no accessory muscle use Cardiovascular: regular rate, rhythm, no JVD Abdomen/GI: normal bowel sounds, soft Genitourinary - Female: + pertinent finding (B/L pelvis tenderness ) Back: + left CVA tenderness, + right CVA tenderness Extremities/Musculoskelatal: no calf tenderness 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: no motor/sensory deficits, alert, oriented x 3 Skin: warm/dry, no rash Diagnostics Laboratory Results Results Past 24 Hours Test 05/03/17 23:09 05/04/17 01:50 05/04/17 02:24 Range/Units White Blood Count 11.94 4.8-10.8 K/uL Red Blood Count 4.44 4.2-5.4 M/uL Hemoglobin 15.7 12.0-16.0 g/dL Hematocrit 42.7 37-47 % Mean Corpuscular Volume 96.2 80-100 fL Mean Corpuscular Hemoglobin 35.4 25-34 pg Mean Corpuscular Hemoglobin Concent 36.8 32-36 g/dl Platelet Count 145 130-400 K/uL Mean Platelet Volume 10.4 7.4-10.4 fL Neutrophils (%) (Auto) 74.6 % Lymphocytes (%) (Auto) 15.5 % Monocytes (%) (Auto) 8.5 % Eosinophils (%) (Auto) 0.8 % Basophils (%) (Auto) 0.2 % Neutrophils # (Auto) 8.92 1.4-6.5 K/uL Lymphocytes # (Auto) 1.85 1.2-3.4 K/uL Monocytes # (Auto) 1.01 0.11-0.59 K/uL Eosinophils # (Auto) 0.09 0-0.5 K/uL Basophils # (Auto) 0.02 0-0.2 K/uL RDW Standard Deviation 43.9 36.4-46.3 fL RDW Coefficient of Variation 12.6 11.5-14.5 % Immature Granulocyte % (Auto) 0.4 % Immature Granulocyte # (Auto) 0.05 0.00-0.02 K/uL Prothrombin Time 12.7 9.0-12.0 SECONDS Prothromb Time International Ratio 1.2 0.9-1.1 Activated Partial Thromboplast Time 26.2 21.0-31.0 SECONDS Partial Thromboplastin Ratio 1.0 Sodium Level 138 136-145 mmol/L Potassium Level 3.5 3.5-5.1 mmol/L Chloride Level 107 98-107 mmol/L Carbon Dioxide Level 23 21-32 mmol/L Anion Gap 8.0 3-11 mmol/L Blood Urea Nitrogen 11 7-18 mg/dl Creatinine 0.99 0.60-1.20 mg/dl Est Creatinine Clear Calc Drug Dose 65.6 ml/min Estimated GFR () 80.3 Estimated GFR (Non- 69.3 BUN/Creatinine Ratio 10.8 10-20 Random Glucose 101 70-99 mg/dl Calcium Level 8.4 8.5-10.1 mg/dl Total Bilirubin 0.3 0.2-1 mg/dl Direct Bilirubin < 0.1 0-0.2 mg/dl Aspartate Amino Transf (AST/SGOT) 13 15-37 U/L Alanine Aminotransferase (ALT/SGPT) 21 12-78 U/L Alkaline Phosphatase 52 45-117 U/L Total Protein 6.9 6.4-8.2 gm/dl Albumin 3.3 3.4-5.0 gm/dl Lipase 194 73-393 U/L Human Chorionic Gonadotropin, Qual NEG NEG Urine Color YELLOW Urine Appearance CLEAR CLEAR Urine pH 6.5 4.5-7.5 Urine Specific [place] 1.042 1.000-1.030 Urine Protein NEG NEG Urine Glucose (UA) NEG NEG Urine Ketones NEG NEG Urine Occult Blood NEG NEG Urine Nitrite NEG NEG Urine Bilirubin NEG NEG Urine Urobilinogen NEG NEG Urine Leukocyte Esterase SMALL NEG Urine WBC (Auto) 1-5 0-5 /hpf Urine RBC (Auto) 0-4 0-4 /hpf Urine Hyaline Casts (Auto) 1-5 0-5 /lpf Urine Epithelial Cells (Auto) >30 0-5 /lpf Urine Bacteria (Auto) NEG NEG Bedside Lactic Acid Venous 1.12 0.90-1.70 mmol/L Microbiology Results 05/04/17 Blood Culture, Received Pending 05/04/17 Blood Culture, Received Pending Diagnostic Radiology Preliminary CT abd/pelvis No colitis or bowel obstruction. Small hiatal hernia. Cholecystectomy. Nonobstructing left renal stones. Impression Assessment and Plan B/L Pelvis Tenderness Possible related to PID Partner recently dx with gonorrhea Had a pelvis exam done last night at the [facility] No cervical motion tenderness and normal cervix WBC mildly elevated Received Rocephin IM @ the [facility] IV doxycycline and Cefoxitin given in the ER Check blood cx Continue abx Continue pain control Monitor CBC Depression Suicidal ideation mostly related to recent grief from her daughter and her mother in the last 3 weeks Psych consult one to one observation Factor V Leiden Multiple PE/DVTs Has not been taking her Coumadin in the last few days INR subtherapeutic Continue coumadin 5 mg Hx Seizure Continue topamax Asthma Stable DVT px Heparin subq until INR therapeutic CODE STATUS FULL CODE Level of Care Med/Surg Resuscitation Status FULL RESUSCITATION VTE Prophylaxis VTE Risk Assessment Done? Y/N: Yes Risk Level: High Given or contraindicated: Enoxaparin (Lovenox)SQ, Unfractionated heparin SQ
[2017-05-04] MEDS ORDERED: HEPARIN SOD 5000 UNIT/0.5 ML CARP SQ SCH (07:00)
--- NOTE | 2017-05-04 07:33 | DIAGNOSTIC IMAGING REPORT ---
ABDOMEN AND PELVIS CT WITH IV CONTRAST CT DOSE: 306.06 mGy.cm HISTORY: Lower abd pain, fever. Recent diagnosis of PID TECHNIQUE: Multiaxial CT images of the abdomen and pelvis were performed following the use of intravenous contrast. A dose lowering technique was utilized adhering to the principles of ALARA. COMPARISON STUDY: Abdomen and pelvis CT 03/28/2017. FINDINGS: The lung bases are clear. The liver, spleen, pancreas, right kidney and adrenal glands are within normal limits. No bowel wall thickening or obstruction. Small left ovarian cysts. A 4 mm stone within the upper pole the left kidney. No hydronephrosis. Cholecystectomy. No suspicious lytic or blastic osseous lesions. Normal appendix. IMPRESSION: 1. Left-sided nephrolithiasis. No ureteral calculi. No hydronephrosis. 2. No bowel wall thickening or obstruction. Electronically signed by: Balwinder Beltran M.D. 05/04/2017 7:31 AM Dictated Date/Time: 05/04/2017 7:28 AM
[2017-05-04] MEDS: TOPIRAMATE 100 MG TAB PO SCH (07:44)
[2017-05-04] MEDS: PANTOprazole SOD 40 MG TAB PO SCH (07:45)
[2017-05-04] MEDS: HYDROCODONE/ACETAMOPHEN 5/325MG TAB PO PRN ×2 (07:46→18:01)
[2017-05-04] MEDS: ENOXAPARIN 40 MG/0.4 ML SYR SQ SCH (07:46)
[2017-05-04] MEDS: CEFOXITIN IV 2,000 MG in DEXTROSE 5% 50ML 50 ML IV SCH ×3 (10:23→22:48)
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
[2017-05-04] MEDS: KETOROLAC TROMETHAMINE 15 MG/ML VIAL IV PRN ×2 (11:03→19:35)
[2017-05-04 11:14] LABS: HEMATOCRIT 39.2 % (37-47); MEAN CORPUSCULAR HEMOGLOBIN 33.7 pg (25-34); MEAN CORPUSCULAR HGB CONC 34.7 g/dl (32-36); MEAN PLATELET VOLUME 10.2 fL (7.4-10.4); PLATELET COUNT 116 K/uL (130-400); RED BLOOD COUNT 4.04 M/uL (4.2-5.4); WHITE BLOOD COUNT 8.56 K/uL (4.8-10.8)
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
[2017-05-04] MEDS: FLUOXETINE HCL 20 MG CAP PO SCH (14:17)
--- NOTE | 2017-05-04 14:28 | Progress Note ---
Medicine Progress Note Date & Time of Visit: May 04, 2017 at 14:28. Subjective Please see H&P from this AM for more details. Patient reports having difficulty voiding, states she has to push in order to urinate but denies any dysuria. No other urinary symptoms noted. Objective Last 8 Hrs Date Time Temp Pulse Resp B/P (MAP) Pulse Ox O2 Delivery O2 Flow Rate FiO2 05/04/17 08:00 Room Air Physical Exam: GENERAL: Patient is in no acute distress. HEENT: No acute trauma, normocephalic atraumatic, mucous membranes moist, no nasal congestion, no scleral icterus. Conjunctivae clear. NECK: No stridor, trachea is midline. LUNGS: Clear to auscultation bilaterally, no wheeze, no rhonchi, breath sounds equal. HEART: Without murmurs gallops or rubs, regular rate and rhythm. ABDOMEN: Soft, nontender, bowel sounds positive, no hepatosplenomegaly EXTREMITIES: No cyanosis or edema, full range of motion of all the joints without pain or difficulty, no signs for acute trauma. NEUROLOGIC: Oriented x 3, no acute motor or sensory deficits, no focal weakness. SKIN: No rash, no jaundice, no diaphoresis. Laboratory Results: Last 24 Hours Test 05/03/17 23:09 05/04/17 01:50 05/04/17 02:24 05/04/17 10:54 White Blood Count 11.94 K/uL 8.56 K/uL Red Blood Count 4.44 M/uL 4.04 M/uL Hemoglobin 15.7 g/dL 13.6 g/dL Hematocrit 42.7 % 39.2 % Mean Corpuscular Volume 96.2 fL 97.0 fL Mean Corpuscular Hemoglobin 35.4 pg 33.7 pg Mean Corpuscular Hemoglobin Concent 36.8 g/dl 34.7 g/dl Platelet Count 145 K/uL 116 K/uL Mean Platelet Volume 10.4 fL 10.2 fL Neutrophils (%) (Auto) 74.6 % Lymphocytes (%) (Auto) 15.5 % Monocytes (%) (Auto) 8.5 % Eosinophils (%) (Auto) 0.8 % Basophils (%) (Auto) 0.2 % Neutrophils # (Auto) 8.92 K/uL Lymphocytes # (Auto) 1.85 K/uL Monocytes # (Auto) 1.01 K/uL Eosinophils # (Auto) 0.09 K/uL Basophils # (Auto) 0.02 K/uL RDW Standard Deviation 43.9 fL 44.3 fL RDW Coefficient of Variation 12.6 % 12.6 % Immature Granulocyte % (Auto) 0.4 % Immature Granulocyte # (Auto) 0.05 K/uL Prothrombin Time 12.7 SECONDS Prothromb Time International Ratio 1.2 Activated Partial Thromboplast Time 26.2 SECONDS Partial Thromboplastin Ratio 1.0 Sodium Level 138 mmol/L Potassium Level 3.5 mmol/L Chloride Level 107 mmol/L Carbon Dioxide Level 23 mmol/L Anion Gap 8.0 mmol/L Blood Urea Nitrogen 11 mg/dl Creatinine 0.99 mg/dl Est Creatinine Clear Calc Drug Dose 65.6 ml/min Estimated GFR () 80.3 Estimated GFR (Non- 69.3 BUN/Creatinine Ratio 10.8 Random Glucose 101 mg/dl Calcium Level 8.4 mg/dl Total Bilirubin 0.3 mg/dl Direct Bilirubin < 0.1 mg/dl Aspartate Amino Transf (AST/SGOT) 13 U/L Alanine Aminotransferase (ALT/SGPT) 21 U/L Alkaline Phosphatase 52 U/L Total Protein 6.9 gm/dl Albumin 3.3 gm/dl Lipase 194 U/L Human Chorionic Gonadotropin, Qual NEG Urine Color YELLOW Urine Appearance CLEAR Urine pH 6.5 Urine Specific [place] 1.042 Urine Protein NEG Urine Glucose (UA) NEG Urine Ketones NEG Urine Occult Blood NEG Urine Nitrite NEG Urine Bilirubin NEG Urine Urobilinogen NEG Urine Leukocyte Esterase SMALL Urine WBC (Auto) 1-5 /hpf Urine RBC (Auto) 0-4 /hpf Urine Hyaline Casts (Auto) 1-5 /lpf Urine Epithelial Cells (Auto) >30 /lpf Urine Bacteria (Auto) NEG Bedside Lactic Acid Venous 1.12 mmol/L Date/Time Source Procedure Growth Status 05/04/17 02:22 Blood Blood Culture Pending Received 05/04/17 02:17 Blood Blood Culture Pending Received Assessment & Plan Pelvic Pain: -possibly related to PID, cultures from urgent care were obtained -risk factor is partner recently dx with gonorrhea; had a pelvic exam done last at [facility] -did not have cervical motion tenderness and normal cervix per exam done there -WBC mildly elevated, trending down -had a dose of Rocephin IM @ urgent care -on IV doxycycline and Cefoxitin day#1 -blood cultures pending -PRN pain control Depression: -Suicidal ideation with plan -mostly related to recent grief from of her daughter and her mother in the last 3 weeks -Psych consulted, patient will need inpatient once medically cleared -continue one to one observation Factor V Leiden: -multiple PE/DVTs in the past -was not taking Coumadin in the few days prior to admission -INR subtherapeutic -continue coumadin 5 mg with lovenox DVT prophylaxis Prior Hx of Seizure: -continue topamax Asthma: -stable -not in exacerbation Current Inpatient Medications: Current Inpatient Medications Medications (Trade) Dose Ordered Sig/Cassy Route Start Time Stop Time Status Last Admin Dose Admin Ioversol (Optiray 320) 100 ml UD PRN IV 05/03/17 23:15 05/07/17 23:14 Acetaminophen/ Hydrocodone Bitart ([place] 5/325 Tab) 1 tab Q6 PRN PO 05/04/17 03:30 05/18/17 03:29 05/04/17 07:46 1 TAB Lorazepam (Ativan Tab) 0.5 mg Q8 PRN PO 05/04/17 03:30 06/03/17 03:29 Ondansetron HCl (Zofran Tab) 4 mg Q6 PRN PO 05/04/17 03:30 06/03/17 03:29 Topiramate (Topamax Tab) 400 mg QAM PO 05/04/17 08:00 06/03/17 08:59 05/04/17 07:44 400 MG Pantoprazole Sodium (Protonix Tab) 40 mg QAM PO 05/04/17 08:00 06/03/17 07:59 05/04/17 07:45 40 MG Enoxaparin Sodium (Lovenox Inj) 40 mg QAM SQ 05/04/17 08:00 06/03/17 07:59 05/04/17 07:46 40 MG Doxycycline Hyclate 100 mg/ Dextrose 110 ml @ 50 mls/hr Q12H IV 05/04/17 16:00 05/14/17 08:59 Cefoxitin Sodium 2000 mg/Dextrose 60 ml @ 100 mls/hr Q6H IV 05/04/17 10:00 05/14/17 06:44 05/04/17 10:23 100 MLS/HR Warfarin Sodium (Coumadin Tab) 7.5 mg DAILY@1600 PO 05/04/17 16:00 06/03/17 15:59 Ketorolac Tromethamine (Toradol Inj) 15 mg Q6H PRN IV 05/04/17 10:45 05/09/17 10:44 05/04/17 11:03 15 MG Fluoxetine HCl (Prozac Cap) 40 mg QAM PO 05/04/17 12:00 06/03/17 11:59 05/04/17 14:17 40 MG
[2017-05-04 14:59] VITALS: BP 76/47; PULSE 68; TEMP 36.6; O2SAT 97
[2017-05-04 15:19] VITALS: BP 77/49
[2017-05-04] MEDS: DOXYCYCLINE IV 100 MG in DEXTROSE 5% 100ML 100 ML IV SCH (15:53)
[2017-05-04] MEDS: WARFARIN SOD 7.5 MG TAB PO SCH (15:54)
[2017-05-04] MEDS ORDERED: WARFARIN SOD 5 MG TAB PO SCH (16:00)
[2017-05-04] MEDS ORDERED: SODIUM CHLORIDE 0.9% 500ML 500 ML IV SCH (16:00)
[2017-05-04 16:50] VITALS: BP 78/51
[2017-05-04 16:58] VITALS: BP 93/61; TEMP 36.6
[2017-05-04] MEDS: SODIUM CHLORIDE 0.9% 1000ML 1,000 ML IV SCH (21:20)
[2017-05-04] MEDS: LORAZEPAM 0.5 MG TAB PO PRN (22:48)
[2017-05-04 22:55] VITALS: BP 83/54; PULSE 57; TEMP 36.6; O2SAT 97
[2017-05-05] MEDS: DOXYCYCLINE IV 100 MG in DEXTROSE 5% 100ML 100 ML IV SCH ×2 (03:04→16:32)
[2017-05-05] MEDS: KETOROLAC TROMETHAMINE 15 MG/ML VIAL IV PRN ×2 (03:04→09:17)
[2017-05-05] MEDS: CEFOXITIN IV 2,000 MG in DEXTROSE 5% 50ML 50 ML IV SCH ×4 (05:02→22:12)
[2017-05-05] MEDS: SODIUM CHLORIDE 0.9% 1000ML 1,000 ML IV SCH ×2 (05:03→14:30)
[2017-05-05 07:17] VITALS: BP 86/53; PULSE 65; TEMP 36.5; O2SAT 98
[2017-05-05] MEDS: LORAZEPAM 0.5 MG TAB PO PRN ×2 (07:19→19:16)
[2017-05-05] MEDS: HYDROCODONE/ACETAMOPHEN 5/325MG TAB PO PRN (07:20)
[2017-05-05 08:08] LABS: INR 1.8 (0.9-1.1); PROTHROMBIN TIME (PATIENT) 19.7 SECONDS (9.0-12.0)
[2017-05-05] MEDS: FLUOXETINE HCL 20 MG CAP PO SCH (09:17)
[2017-05-05] MEDS: PANTOprazole SOD 40 MG TAB PO SCH (09:17)
[2017-05-05] MEDS: TOPIRAMATE 100 MG TAB PO SCH (09:17)
[2017-05-05] MEDS: ENOXAPARIN 40 MG/0.4 ML SYR SQ SCH (09:18)
[2017-05-05] MEDS ORDERED: DOCUSATE SODIUM 100 MG CAP PO ONE (09:30)
--- NOTE | 2017-05-05 11:13 | Urology Consultation ---
History General Date of Service: May 05, 2017. Primary Care Physician: No Doctor, Assigned Pt seen a urologist before?: Yes If yes, why?: Unknown History of Present Illness 46 y/o Female with complex past psychiatric history admitted for same issues. During her stay she has reported continued urgency. She states that she doesn' t feel like she empties her bladder all the way and that will feel the urge to go even after she voids. She "always feels like she has a UTI." She can not be specific about the issues related to past UTIs. She does report that she has always had bladder issues and underwent a "scope" at the age of 8; however, she does not know the result of that scope. She has no hx of bladder related surgery. She will occ see blood on the tissue paper when she wipes after she voids. No denies any incontinence. PVRs have been performed while in the hospital and have varied from a range of 80-250mL. CT scan showed a 4mm stone in the left upper pole. No hydronephrosis. No masses. Imaging Imaging: CT Laboratory Labs were reviewed and are within normal limits unless listed below. Labs are available in the chart and at [facility] Problem List Medical Problems: (1) Asthma, Unspecified Status: Chronic (2) Bipolar Disorder, Unspecified Status: Chronic (3) Coagulopathy Status: Acute (4) Common Migraine W/O Intractable Migraine Status: Chronic (5) DVT (deep venous thrombosis) Status: Acute (6) Epilepsy, Unsp, Not Intractable, Without Status Epilepticus Status: Chronic (7) Episode of heavy vaginal bleeding Status: Acute (8) Factor V Leiden Status: Chronic (9) Failure of outpatient treatment Status: Acute (10) Hypokalemia Status: Acute (11) Left leg DVT Status: Acute (12) Left leg DVT Status: Acute (13) Left leg pain Status: Acute (14) Sur[employer] (Current) Use Of 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 Status: Chronic (15) Lower abdominal pain Status: Acute (16) On anticoagulant therapy Status: Acute (17) Pelvic cramping Status: Acute (18) PID (acute pelvic inflammatory disease) Status: Acute (19) Right ankle sprain Status: Acute (20) Right-sided chest pain Status: Acute (21) Shortness of breath Status: Acute (22) Shortness of breath Status: Acute Past History other Past Surgical History: no surgical history Family History FH: cancer Gallbladder disease Kidney disease Kidney stones Social History Hx Tobacco Use In Past Year?: Yes Marital status: Housing status: lives with family Occupation status: employed Immunizations History of Influenza Vaccine: Unknown History of Tetanus Vaccine?: Unknown History of Pneumococcal: No History of Hepatitis B Vaccine: Unknown History of MDRO No Allergies Coded Allergies: Morphine (Verified Allergy, Intermediate, chest pain; trouble breathing, 05/03/17) Chocolate (Verified Allergy, Unknown, 05/03/17) Kiwi (Verified Allergy, Unknown, ANAPHYLAXIS, 05/03/17) NUTS (Unverified Allergy, Unknown, ANAPHYLAXIS, 05/03/17) Peanut (Verified Allergy, Unknown, 05/03/17) Prochlorperazine (Verified Allergy, Unknown, SEVERE ALLERGIC RXN, 05/03/17) Medications Home Medications: Home Meds and Scripts Medications Dose Route/Sig Max Daily Dose Days Date Category Dose Instructions [place] 5MG/325MG (Acetaminophen/Hydrocodone Bitart) Tab 1 Tablet PO Q6 PRN 05/03/17 Reported PRN PAIN Zofran (Ondansetron HCl) 4 Mg Tab 4 Mg PO Q6 PRN 03/27/17 Reported Prilosec (Omeprazole) 40 Mg Cap 40 Mg PO DAILY 02/19/17 Reported Sumatriptan Succinate 50 Mg Tab 50 Mg PO UD PRN 08/02/16 Reported TAKE ONE TABLET AT ONSET OF MIGRAINE, MAY REPEAT AFTER 2 HOURS IF NEEDED. MAXIMUM 4 TABLETS A DAY. Lorazepam 0.5 Mg Tab 0.5 Mg PO Q8 PRN 08/02/16 Reported Ventolin Hfa (Albuterol) 200 Puffs/[id number] Mcg Aers 2 Puffs INH QID PRN 07/25/16 Reported Coumadin (Warfarin Sodium) 5 Mg Tab 5 Mg PO DAILY 03/20/14 Reported Topamax (Topiramate) 200 Mg Tab 400 Mg PO QAM 06/23/13 Reported Inpatient Medications: Current Inpatient Medications Medications (Trade) Dose Ordered Sig/Cassy Route Start Time Stop Time Status Last Admin Dose Admin Ioversol (Optiray 320) 100 ml UD PRN IV 05/03/17 23:15 05/07/17 23:14 Acetaminophen/ Hydrocodone Bitart ([place] 5/325 Tab) 1 tab Q6 PRN PO 05/04/17 03:30 05/18/17 03:29 05/05/17 07:20 1 TAB Lorazepam (Ativan Tab) 0.5 mg Q8 PRN PO 05/04/17 03:30 06/03/17 03:29 05/05/17 07:19 0.5 MG Ondansetron HCl (Zofran Tab) 4 mg Q6 PRN PO 05/04/17 03:30 06/03/17 03:29 Topiramate (Topamax Tab) 400 mg QAM PO 05/04/17 08:00 06/03/17 08:59 05/05/17 09:17 400 MG Pantoprazole Sodium (Protonix Tab) 40 mg QAM PO 05/04/17 08:00 06/03/17 07:59 05/05/17 09:17 40 MG Enoxaparin Sodium (Lovenox Inj) 40 mg QAM SQ 05/04/17 08:00 06/03/17 07:59 05/05/17 09:18 40 MG Doxycycline Hyclate 100 mg/ Dextrose 110 ml @ 50 mls/hr Q12H IV 05/04/17 16:00 05/14/17 08:59 05/05/17 03:04 50 MLS/HR Cefoxitin Sodium 2000 mg/Dextrose 60 ml @ 100 mls/hr Q6H IV 05/04/17 10:00 05/14/17 06:44 05/05/17 09:22 100 MLS/HR Warfarin Sodium (Coumadin Tab) 7.5 mg DAILY@1600 PO 05/04/17 16:00 06/03/17 15:59 05/04/17 15:54 7.5 MG Fluoxetine HCl (Prozac Cap) 40 mg QAM PO 05/04/17 12:00 06/03/17 11:59 05/05/17 09:17 40 MG Sodium Chloride 1,000 ml @ 100 mls/hr Q10H IV 05/04/17 19:00 05/06/17 00:59 05/05/17 05:03 100 MLS/HR Ketorolac Tromethamine (Toradol Inj) 30 mg Q6H PRN IV. 05/05/17 09:30 05/09/17 10:44 Docusate Sodium (coLACE CAP) 100 mg BID PO 05/05/17 20:00 06/04/17 19:59 Review of Systems Review of Systems Constitutional: No fever, No chills Eyes: No blurred vision Neurological: No dizzy Cardiovascular: No chest pain Respiratory: No shortness of breath Musculoskeletal: No joint pain Ears / Nose / Throat: No hearing loss Female : + frequent urination All Other Systems: Reviewed and Negative Physical Exam Vital Signs: Vital Signs Past 12 Hours Date Time Temp Pulse Resp B/P (MAP) Pulse Ox O2 Delivery O2 Flow Rate FiO2 05/05/17 07:51 Room Air 05/05/17 07:17 36.5 65 20 86/53 (64) 98 Room Air 05/05/17 00:15 Room Air Physical Exam: General Appearance: WD/WN, no apparent distress ENT: normal ENT inspection Neck: supple Respiratory/Chest: chest non-tender, lungs clear Cardiovascular: regular rate, rhythm, no edema Extremities: non-tender 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iatric: alert Skin: normal color Lymphatic: no adenopathy Assessment & Plan Assessment & Plan (1) Incomplete emptying of bladder (2) Urgency of urination The patient has continued urgency. No clear cause at this time. Certainly anxiety is a possible component to her urinary symptoms. At times she is able empty her bladder completely. No evidence of anatomic obstruction related to a stone. Likely OAB or pelvic floor instability. Will start with a trial of anti -cholinergics. (Detrol LA 4mg) Continue to check PVRs at the bedside. Will need continued f/u as an outpatient to discuss additional options.
[2017-05-05 15:30] VITALS: O2SAT 96
[2017-05-05 15:31] VITALS: BP 98/64; PULSE 80; TEMP 36.8; O2SAT 96
[2017-05-05] MEDS: KETOROLAC TROMETHAMINE 30 MG/ML VIAL IV. PRN ×2 (15:38→22:13)
[2017-05-05] MEDS: WARFARIN SOD 7.5 MG TAB PO SCH (15:45)
--- NOTE | 2017-05-05 18:15 | Progress Note ---
Medicine Progress Note Date & Time of Visit: May 05, 2017 at 18:15. Subjective Patient reports ongoing symptoms of feeling the urge to urinate but unable to empty her bladder completely and states she feels as though she has to push in order to urinate. Is worried about having a bowel movement. No overnight events noted. Patient states she has a history of trauma and underwent a cystoscopy when she was 7 yrs old but does not elaborate further and does not know the findings. Requests stool softeners. Objective Last 8 Hrs Date Time Temp Pulse Resp B/P (MAP) Pulse Ox O2 Delivery O2 Flow Rate FiO2 05/05/17 15:31 36.8 80 18 98/64 (75) 96 Room Air 05/05/17 15:30 96 Room Air Physical Exam: GENERAL: Patient is in no acute distress. HEENT: No acute trauma, normocephalic atraumatic, mucous membranes moist, no nasal congestion, no scleral icterus. Conjunctivae clear. NECK: No stridor, trachea is midline. LUNGS: Clear to auscultation bilaterally, no wheeze, no rhonchi, breath sounds equal. HEART: Without murmurs gallops or rubs, regular rate and rhythm. ABDOMEN: Soft, mildly tender in RLQ, bowel sounds positive, no hepatosplenomegaly EXTREMITIES: No cyanosis or edema, full range of motion of all the joints without pain or difficulty, no signs for acute trauma. NEUROLOGIC: Oriented x 3, no acute motor or sensory deficits, no focal weakness. SKIN: No rash, no jaundice, no diaphoresis. Laboratory Results: Last 24 Hours Test 05/05/17 07:34 Prothrombin Time 19.7 SECONDS Prothromb Time International Ratio 1.8 Assessment & Plan Pelvic Pain: -possibly related to PID, cultures from urgent care were obtained -risk factor is partner recently dx with gonorrhea; had a pelvic exam done last at [email or web address] -did not have cervical motion tenderness and normal cervix per exam done there -WBC mildly elevated, trending down -had a dose of Rocephin IM @ urgent care -on IV doxycycline and Cefoxitin day#2 -blood cultures pending -PRN pain control -CT abd/pelvis showed a small left ovarian cyst and left nephrolithiasis; no evidence for abscesses, or obstructions Depression: -Suicidal ideation with plan -mostly related to recent grief from of her daughter and her mother in the last 3 weeks -Psych consulted, patient will need inpatient once medically cleared -continue one to one observation Factor V Leiden: -multiple PE/DVTs in the past -was not taking Coumadin in the few days prior to admission -INR subtherapeutic -continue coumadin 5 mg with lovenox Prior Hx of Seizure: -continue topamax Asthma: -stable -not in exacerbation Current Inpatient Medications: Current Inpatient Medications Medications (Trade) Dose Ordered Sig/Cassy Route Start Time Stop Time Status Last Admin Dose Admin Ioversol (Optiray 320) 100 ml UD PRN IV 05/03/17 23:15 05/07/17 23:14 Acetaminophen/ Hydrocodone Bitart ([place] 5/325 Tab) 1 tab Q6 PRN PO 05/04/17 03:30 05/18/17 03:29 05/05/17 07:20 1 TAB Lorazepam (Ativan Tab) 0.5 mg Q8 PRN PO 05/04/17 03:30 06/03/17 03:29 05/05/17 07:19 0.5 MG Ondansetron HCl (Zofran Tab) 4 mg Q6 PRN PO 05/04/17 03:30 06/03/17 03:29 Topiramate (Topamax Tab) 400 mg QAM PO 05/04/17 08:00 06/03/17 08:59 05/05/17 09:17 400 MG Pantoprazole Sodium (Protonix Tab) 40 mg QAM PO 05/04/17 08:00 06/03/17 07:59 05/05/17 09:17 40 MG Enoxaparin Sodium (Lovenox Inj) 40 mg QAM SQ 05/04/17 08:00 06/03/17 07:59 05/05/17 09:18 40 MG Doxycycline Hyclate 100 mg/ Dextrose 110 ml @ 50 mls/hr Q12H IV 05/04/17 16:00 05/14/17 08:59 05/05/17 16:32 50 MLS/HR Cefoxitin Sodium 2000 mg/Dextrose 60 ml @ 100 mls/hr Q6H IV 05/04/17 10:00 05/14/17 06:44 05/05/17 15:44 100 MLS/HR Warfarin Sodium (Coumadin Tab) 7.5 mg DAILY@1600 PO 05/04/17 16:00 06/03/17 15:59 05/05/17 15:45 7.5 MG Fluoxetine HCl (Prozac Cap) 40 mg QAM PO 05/04/17 12:00 06/03/17 11:59 05/05/17 09:17 40 MG Sodium Chloride 1,000 ml @ 100 mls/hr Q10H IV 05/04/17 19:00 05/06/17 00:59 05/05/17 14:30 100 MLS/HR Ketorolac Tromethamine (Toradol Inj) 30 mg Q6H PRN IV. 05/05/17 09:30 05/09/17 10:44 05/05/17 15:38 30 MG Docusate Sodium (coLACE CAP) 100 mg BID PO 05/05/17 20:00 06/04/17 19:59
[2017-05-05] MEDS ORDERED: NURSING VERBAL MED ORDER ONE (21:00)
[2017-05-05] MEDS ORDERED: ZOLPIDEM TARTRATE 5 MG TAB PO ONE (22:00)
[2017-05-05] MEDS: DOCUSATE SODIUM 100 MG CAP PO SCH (22:12)
[2017-05-06 00:03] VITALS: BP 96/60; PULSE 69; TEMP 36.4; O2SAT 97
[2017-05-06] MEDS ORDERED: ALBUT/IPRATROP 3MG/0.5MG NEB 3 ML VIAL INH PRN (02:00)
[2017-05-06 02:26] VITALS: PULSE 67; O2SAT 97
[2017-05-06] MEDS: CEFOXITIN IV 2,000 MG in DEXTROSE 5% 50ML 50 ML IV SCH ×2 (03:46→09:11)
[2017-05-06] MEDS: DOXYCYCLINE IV 100 MG in DEXTROSE 5% 100ML 100 ML IV SCH (03:47)
[2017-05-06 07:01] VITALS: BP 105/68; PULSE 73; TEMP 36.6; O2SAT 98
[2017-05-06] MEDS: KETOROLAC TROMETHAMINE 30 MG/ML VIAL IV. PRN ×3 (07:41→21:35)
[2017-05-06] MEDS: LORAZEPAM 0.5 MG TAB PO PRN ×2 (07:41→16:39)
[2017-05-06] MEDS: PANTOprazole SOD 40 MG TAB PO SCH (07:42)
[2017-05-06] MEDS: FLUOXETINE HCL 20 MG CAP PO SCH (07:42)
[2017-05-06 07:43] LABS: INR 2.6 (0.9-1.1); PROTHROMBIN TIME (PATIENT) 28.8 SECONDS (9.0-12.0)
[2017-05-06] MEDS: DOCUSATE SODIUM 100 MG CAP PO SCH ×2 (07:43→20:00)
[2017-05-06] MEDS: TOPIRAMATE 100 MG TAB PO SCH (07:45)
[2017-05-06] MEDS: ENOXAPARIN 40 MG/0.4 ML SYR SQ SCH (07:45)
[2017-05-06 07:58] LABS: BUN/CREATININE RATIO 12.2 (10-20); CREATININE 0.94 mg/dl (0.60-1.20); POTASSIUM 3.6 mmol/L (3.5-5.1)
[2017-05-06 14:59] VITALS: BP 84/55; PULSE 70; TEMP 36.8; O2SAT 97
--- NOTE | 2017-05-06 15:57 | Progress Note ---
Medicine Progress Note Date & Time of Visit: May 06, 2017 at 15:57. Subjective Patient reports ongoing pelvic pain but thinks it has been easier to void urine today and has less PVRs. Tolerating PO. No overnight events noted. Had a BM without difficulty. Objective Last 8 Hrs Date Time Temp Pulse Resp B/P (MAP) Pulse Ox O2 Delivery O2 Flow Rate FiO2 05/06/17 14:59 36.8 70 18 84/55 (65) 97 Room Air 05/06/17 08:00 Room Air Physical Exam: GENERAL: Patient is in no acute distress. HEENT: No acute trauma, normocephalic atraumatic, mucous membranes moist, no nasal congestion, no scleral icterus. Conjunctivae clear. NECK: No stridor, trachea is midline. LUNGS: Clear to auscultation bilaterally, no wheeze, no rhonchi, breath sounds equal. HEART: Without murmurs gallops or rubs, regular rate and rhythm. ABDOMEN: Soft, mildly tender in RLQ, bowel sounds positive, no hepatosplenomegaly EXTREMITIES: No cyanosis or edema, full range of motion of all the joints without pain or difficulty, no signs for acute trauma. NEUROLOGIC: Oriented x 3, no acute motor or sensory deficits, no focal weakness. SKIN: No rash, no jaundice, no diaphoresis. Laboratory Results: Last 24 Hours Test 05/06/17 06:55 Prothrombin Time 28.8 SECONDS Prothromb Time International Ratio 2.6 Sodium Level 142 mmol/L Potassium Level 3.6 mmol/L Chloride Level 113 mmol/L Carbon Dioxide Level 20 mmol/L Anion Gap 9.0 mmol/L Blood Urea Nitrogen 11 mg/dl Creatinine 0.94 mg/dl Est Creatinine Clear Calc Drug Dose 69.8 ml/min Estimated GFR () 85.5 Estimated GFR (Non- 73.8 BUN/Creatinine Ratio 12.2 Random Glucose 88 mg/dl Calcium Level 8.0 mg/dl Assessment & Plan Pelvic Pain: -possibly related to PID, cultures from urgent care were obtained -risk factor is partner recently dx with gonorrhea; had a pelvic exam done last at [facility] and did not have cervical motion tenderness and normal cervix per exam there -WBC mildly elevated, trending down -had a dose of Rocephin IM @ urgent care -on IV doxycycline and Cefoxitin day#3 -blood cultures no growth -PRN pain control -CT abd/pelvis showed a small left ovarian cyst and left nephrolithiasis; no evidence for abscesses, or obstructions -antibiotics switched to PO doxycycline for the remainder of the 14 day course Depression: -Suicidal ideation with plan -mostly related to recent grief from of her daughter and her mother in the last 3 weeks -Psych consulted, patient will need inpatient -continue one to one observation Factor V Leiden: -multiple PE/DVTs in the past -was not taking Coumadin in the few days prior to admission -INR 2.6 today -continue coumadin 5 mg and stop lovenox Prior Hx of Seizure: -continue topamax Asthma: -stable -not in exacerbation Medically stable for discharge to inpatient psych. Current Inpatient Medications: Current Inpatient Medications Medications (Trade) Dose Ordered Sig/Cassy Route Start Time Stop Time Status Last Admin Dose Admin Ioversol (Optiray 320) 100 ml UD PRN IV 05/03/17 23:15 05/07/17 23:14 Acetaminophen/ Hydrocodone Bitart ([place] 5/325 Tab) 1 tab Q6 PRN PO 05/04/17 03:30 05/18/17 03:29 05/05/17 07:20 1 TAB Lorazepam (Ativan Tab) 0.5 mg Q8 PRN PO 05/04/17 03:30 06/03/17 03:29 05/06/17 07:41 0.5 MG Ondansetron HCl (Zofran Tab) 4 mg Q6 PRN PO 05/04/17 03:30 06/03/17 03:29 Topiramate (Topamax Tab) 400 mg QAM PO 05/04/17 08:00 06/03/17 08:59 05/06/17 07:45 400 MG Pantoprazole Sodium (Protonix Tab) 40 mg QAM PO 05/04/17 08:00 06/03/17 07:59 05/06/17 07:42 40 MG Enoxaparin Sodium (Lovenox Inj) 40 mg QAM SQ 05/04/17 08:00 06/03/17 07:59 05/06/17 07:45 40 MG Warfarin Sodium (Coumadin Tab) 7.5 mg DAILY@1600 PO 05/04/17 16:00 06/03/17 15:59 05/05/17 15:45 7.5 MG Fluoxetine HCl (Prozac Cap) 40 mg QAM PO 05/04/17 12:00 06/03/17 11:59 05/06/17 07:42 40 MG Ketorolac Tromethamine (Toradol Inj) 30 mg Q6H PRN IV. 05/05/17 09:30 05/09/17 10:44 05/06/17 14:20 30 MG Docusate Sodium (coLACE CAP) 100 mg BID PO 05/05/17 20:00 06/04/17 19:59 05/05/17 22:12 100 MG Albuterol/ Ipratropium (Duoneb) 3 ml Q4R PRN INH 05/06/17 02:00 06/05/17 01:59 05/06/17 02:24 3 ML Doxycycline Hyclate (Vibramycin Cap) 100 mg BID PO 05/06/17 20:00 05/17/17 23:59
[2017-05-06] MEDS: WARFARIN SOD 7.5 MG TAB PO SCH (16:09)
[2017-05-06] MEDS ORDERED: METRONIDAZOLE 500 MG TAB PO SCH (20:00)
[2017-05-06] MEDS: DOXYCYCLINE HYCLATE 100 MG CAP PO SCH (21:31)
[2017-05-06] MEDS ORDERED: NURSING VERBAL MED ORDER ONE (22:00)
[2017-05-06] MEDS ORDERED: ZOLPIDEM TARTRATE 5 MG TAB PO ONE (22:15)
[2017-05-06 22:55] VITALS: BP_SYST 84; BP_SYST 88; BP_DIAS 51; BP_DIAS 61; PULSE 62; TEMP 36.7; O2SAT 97
[2017-05-07 07:21] LABS: HEMATOCRIT 42.1 % (37-47); MEAN CELL VOLUME 96.8 fL (80-100); MEAN CORPUSCULAR HEMOGLOBIN 33.8 pg (25-34); MEAN CORPUSCULAR HGB CONC 34.9 g/dl (32-36); MEAN PLATELET VOLUME 10.5 fL (7.4-10.4); PLATELET COUNT 138 K/uL (130-400); RED BLOOD COUNT 4.35 M/uL (4.2-5.4)
[2017-05-07 07:37] LABS: INR 3.5 (0.9-1.1); PROTHROMBIN TIME (PATIENT) 39.5 SECONDS (9.0-12.0)
[2017-05-07] MEDS: PANTOprazole SOD 40 MG TAB PO SCH (07:37)
[2017-05-07] MEDS: DOCUSATE SODIUM 100 MG CAP PO SCH (07:37)
[2017-05-07] MEDS: DOXYCYCLINE HYCLATE 100 MG CAP PO SCH (07:37)
[2017-05-07] MEDS: FLUOXETINE HCL 20 MG CAP PO SCH (07:37)
[2017-05-07] MEDS: TOPIRAMATE 100 MG TAB PO SCH (07:37)
[2017-05-07] MEDS: KETOROLAC TROMETHAMINE 30 MG/ML VIAL IV. PRN ×2 (07:38→13:50)
[2017-05-07 08:01] LABS: CALCIUM 8.4 mg/dl (8.5-10.1); CREATININE 0.88 mg/dl (0.60-1.20); POTASSIUM 3.9 mmol/L (3.5-5.1)
[2017-05-07] MEDS: LORAZEPAM 0.5 MG TAB PO PRN (08:39)
[2017-05-07] MEDS ORDERED: CLC100 PO (12:59)
[2017-05-07] MEDS ORDERED: DXY100 PO ×2 (12:59→13:00)
[2017-05-07] MEDS ORDERED: IBUP600T44 PO ×2 (12:59→13:00)
--- NOTE | 2017-05-07 13:04 | Discharge Instructions ---
Discharge Instructions Date of Service May 07, 2017. Admission Reason for Admission: Pelvic Pain, Suididal Ideation Discharge Discharge Diagnosis / Problem: Pelvic pain, suicidal ideation Discharge Goals Goal(s): Therapeutic intervention Activity Recommendations Activity Level: Up Ad Char . Additional Information Patient informed of condition: Yes Advance Directives: No DNR: No Level of Care: Other Communicable Disease: No Prognosis: Stable Arias Catheter: No Instructions / Follow-Up Instructions / Follow-Up Please follow up with Urology as an outpatient for further evaluation of urinary retention Please follow up with your primary care physician upon discharge for hospital follow up Current Hospital Diet Patient's current hospital diet: Regular Diet Discharge Diet Recommended Diet: Regular Diet Pending Studies Studies pending at discharge: no Physician Orders On Transfer Special Precautions: Please do not give any coumadin today (05/07/17); ok to resume coumadin tomorrow Tuesday 05/08 Medical Emergencies . Who to Call and When: Medical Emergencies: If at any time you feel your situation is an emergency, please call 911 immediately. . Non-Emergent Contact Non-Emergency issues call your: Primary Care Provider . . "Provider Documentation" section prepared by Tessie Dowling. . Core Measure Problem Core Measures: None
--- NOTE | 2017-05-07 13:19 | Discharge Summary ---
Discharge Summary Date of Service May 07, 2017. Discharge Summary Admission Date: May 04, 2017 at 03:26 Discharge Date: May 07, 2017 Discharge Disposition: Acute care mental health Principal Diagnosis: Suicidal ideation, pelvic pain with possible PID Consultations: Urology, Psychiatry Pending Studies/Follow-Up: Please hold coumadin today and restart home dose (5mg) tomorrow; Needs outpatient urology workup for urine retention Medication Reconciliation New Medications: Ibuprofen (Motrin) 600 Mg Tab 600 MG PO TID PRN for Pain, #15 TAB PRN Doxycycline Hyclate (Doxycycline Hyclate) 100 Mg Cap 100 MG PO BID, #21 CAP Continued Medications: Albuterol Hfa (Ventolin Hfa) 200 Puffs/62676 Mcg Aers 2 PUFFS INH QID PRN for SOB/Wheezing, INHALER Hydrocodone/Acetaminophen 5MG/325MG ([place] 5MG/325MG) Tab 1 TABLET PO Q6 PRN for Pain, TAB PRN PAIN Lorazepam (Lorazepam) 0.5 Mg Tab 0.5 MG PO Q8 PRN for Anxiety/Insomnia Omeprazole (Prilosec) 40 Mg Cap 40 MG PO DAILY Ondansetron Hcl (Zofran) 4 Mg Tab 4 MG PO Q6 PRN for Nausea, TAB Sumatriptan Succinate (Sumatriptan Succinate) 50 Mg Tab 50 MG PO UD PRN for Migraine TAKE ONE TABLET AT ONSET OF MIGRAINE, MAY REPEAT AFTER 2 HOURS IF NEEDED. MAXIMUM 4 TABLETS A DAY. Topiramate (Topamax) 200 Mg Tab 400 MG PO QAM Warfarin Sodium (Coumadin) 5 Mg Tab 5 MG PO DAILY Admission Information HPI (per Admitting provider): 46 year old female with PMH Factor v Leiden, multiple episode of PE/DVT on coumadin, seizure presents to the Emergency Room after sending from [facility] for pelvic pain for the past 2 days. Pt said that her partner just diagnosed with gonorrhea 3 days ago. She said that she went to [facility] last night because she had been having b/l pelvis pain that radiated to her back. Pain is constant, 10/10. She has been having fever and chills. She took tylenol with no relief. Pt said that she develops a burning pain when she finished to urinate. She had a pelvis exam done at the [facility] that shown normal anatomy and no cervical motion tenderness. She said that that she was given a shot of Rocephin, and they could not put her on oral antibiotic because she is on coumadin as per patient. She states that she was told to come to the ED to receive IV antibiotics. In the ER she had a CT abd/pelvis done with preliminary report showed no colitis or bowel obstruction and nonobstructing left renal stones. Received IV doxycycline and cefoxitin in the ER. while in the ER, Pt said that she feels very depressed. She buried her mother 3 weeks ago and yesterday she buried her 24 y/o daughter that was found on the kitchen floor. Pt said that if she goes home she would ingest pills to try to kill herself, She has been having suicide ideations. Denies any chest pain, palpitation, dizziness and SOB. Physical Exam (per Admitting): General Appearance: WD/WN, no apparent distress Head: normocephalic, atraumatic Eyes: PERRL, EOMI ENT: hearing grossly normal Neck: no JVD, trachea midline Respiratory/Chest: normal breath sounds, no respiratory distress, no accessory muscle use Cardiovascular: regular rate, rhythm, no JVD Abdomen/GI: normal bowel sounds, soft Genitourinary - Female: + pertinent finding (B/L pelvis tenderness ) Back: + left CVA tenderness, + right CVA tenderness Extremities/Musculoskelatal: no calf tenderness 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: no motor/sensory deficits, alert, oriented x 3 Skin: warm/dry, no rash Hospital Course Pelvic Pain: -possibly related to PID, cultures from urgent care were obtained -risk factor is partner recently dx with gonorrhea; had a pelvic exam done last at [facility] and did not have cervical motion tenderness and normal cervix per exam there -WBC mildly elevated, trending down -had a dose of Rocephin IM @ urgent care -on IV doxycycline and Cefoxitin 3 days; has about 21 doses of doxycycline left to complete a 14 day course -blood cultures no growth -PRN pain control -CT abd/pelvis showed a small left ovarian cyst and left nephrolithiasis; no evidence for abscesses, or obstructions Depression: -Suicidal ideation with plan -mostly related to recent grief from of her daughter and her mother in the last 3 weeks -Psych consulted, patient will need inpatient, appreciate management -continued one to one observation while on the medical floor Factor V Leiden: -multiple PE/DVTs in the past -was not taking Coumadin in the few days prior to admission -INR 3.5 today -continue coumadin 5 mg starting tomorrow, todays dose should be held as written in discharge instructions and relayed to the patient Prior Hx of Seizure: -continue topamax -no events this hospitalization Asthma: -stable -not in exacerbation -PRN albuterol PHYSICAL EXAM ON DAY OF DISCHARGE: GENERAL: Patient is in no acute distress. Flat affect, makes better eye contact today HEENT: No acute trauma, normocephalic, mucous membranes moist, no nasal congestion, no scleral icterus. Conjunctivae clear NECK: No stridor, trachea is midline. LUNGS: Clear to auscultation bilaterally, no wheeze, no rhonchi, breath sounds equal. HEART: Without murmurs gallops or rubs, regular rate and rhythm. ABDOMEN: Soft, nontender, bowel sounds positive, no hepatosplenomegaly EXTREMITIES: No cyanosis or edema, full range of motion of all the joints without pain or difficulty NEUROLOGIC: Oriented x 3, no acute motor or sensory deficits, no focal weakness. SKIN: No rash, no jaundice, no diaphoresis. Total time spent on discharge = 37 This includes examination of the patient, discharge planning, medication reconciliation, and communication with other providers. Discharge Instructions see patient instructions
[2017-05-07 13:43] VITALS: BP 88/61; PULSE 62; TEMP 36.7; O2SAT 97
[2017-05-07] MEDS ORDERED: FLUO20CA36 PO (14:41)
[2017-05-07] MEDS ORDERED: WARFARIN SOD 5 MG TAB PO SCH (16:00)
== END 2017-05-07 14:13 | DRG 758 ==
LOC: C.EDB 21:59 → C.4E 05-04 03:26 → ENRESERV 05-04 05:04 → C.MS4W 05-04 11:43
PROVIDERS: ADMIT Internal Medicine; ATTEND Internal Medicine
DX: N73.2 Unspecified parametritis and pelvic cellulitis (principal); D68.2 Hereditary deficiency of other clotting factors; K51.90 Ulcerative colitis, unspecified, without complications; R45.851 Suicidal ideations; Z79.01 Long term (current) use of anticoagulants; J45.909 Unspecified asthma, uncomplicated; Z86.711 Personal history of pulmonary embolism; F17.200 Nicotine dependence, unspecified, uncomplicated; G40.909 Epilepsy, unspecified, not intractable, without status epilepticus; F32.9 Major depressive disorder, single episode, unspecified; G43.009 Migraine without aura, not intractable, without status migrainosus; E87.6 Hypokalemia; R33.9 Retention of urine, unspecified; R39.15 Urgency of urination

== ENCOUNTER 2017-05-07 14:13 | Inpatient (IN) | payer OTHER ==
[~2017-05-07] VITALS: Ht 157.5 cm; Wt 61.5 kg
[~2017-05-07 14:13] MED LIST changes: +CLC100 PO; +DXY100 PO; +HYDR-5688 PO; +IBUP600T44 PO
[2017-05-07] MEDS ORDERED: ONDANSETRON 4 MG TAB PO PRN (14:30)
[2017-05-07] MEDS ORDERED: SUMATRIPTAN SUCCINATE 50 MG TAB PO PRN (14:30)
[2017-05-07] MEDS ORDERED: ALBUTEROL HFA 8 GM INHALER INH PRN (14:30)
[2017-05-07] MEDS ORDERED: FLUO20CA36 PO (14:41)
[2017-05-07] MEDS ORDERED: MAGNESIUM HYDROXIDE SUSP 30 ML UDC PO PRN (14:45)
[2017-05-07] MEDS ORDERED: BISMUTH SUBSALICYLATE PER ML OMNICELL CHARGE PO PRN (14:45)
[2017-05-07] MEDS ORDERED: SODIUM CHLORIDE 0.65% NA SOLN 45 ML (OCEAN) PRN (14:45)
[2017-05-07] MEDS ORDERED: ACETAMINOPHEN 325 MG TAB PO PRN (14:45)
[2017-05-07] MEDS ORDERED: hydrOXYzine HCL 25 MG TAB PO PRN (14:45)
[2017-05-07] MEDS ORDERED: ALUMINUM/MAGNESIUM SUSP 30 ML UDC PO PRN (14:45)
[2017-05-07 14:59] VITALS: BP 91/62; PULSE 74; TEMP 36.6; BMI 24.8
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
[2017-05-07] MEDS: HYDROCODONE/ACETAMOPHEN 5/325MG TAB PO PRN (15:51)
[2017-05-07] MEDS: LORAZEPAM 0.5 MG TAB PO PRN (18:08)
[2017-05-07 18:51] VITALS: BP 91/62; PULSE 74; TEMP 36.6; Ht 157.5 cm; Wt 61.5 kg
[2017-05-07] MEDS: DOXYCYCLINE HYCLATE 100 MG CAP PO SCH (21:19)
[2017-05-07] MEDS: hydrOXYzine HCL 25 MG TAB PO PRN (21:21)
[2017-05-08] MEDS: HYDROCODONE/ACETAMOPHEN 5/325MG TAB PO PRN ×4 (01:36→21:56)
[2017-05-08 06:55] VITALS: BP_SYST 104; BP_SYST 116; BP_DIAS 70; BP_DIAS 78; PULSE 60; PULSE 71; TEMP 36.6
[2017-05-08 07:47] LABS: MEAN CELL VOLUME 97.2 fL (80-100); MEAN CORPUSCULAR HEMOGLOBIN 33.6 pg (25-34); MEAN PLATELET VOLUME 10.5 fL (7.4-10.4); PLATELET COUNT 127 K/uL (130-400); RED BLOOD COUNT 4.22 M/uL (4.2-5.4); WHITE BLOOD COUNT 6.76 K/uL (4.8-10.8)
[2017-05-08 07:54] LABS: INR 2.9 (0.9-1.1); PROTHROMBIN TIME (PATIENT) 32.8 SECONDS (9.0-12.0)
[2017-05-08 07:56] LABS: MEAN CORPUSCULAR HGB CONC 34.6 g/dl (32-36)
[2017-05-08] MEDS ORDERED: FLUOXETINE HCL 20 MG CAP PO SCH (09:00)
[2017-05-08] MEDS: PANTOprazole SOD 40 MG TAB PO SCH (09:13)
[2017-05-08] MEDS: DOXYCYCLINE HYCLATE 100 MG CAP PO SCH ×2 (09:14→21:07)
[2017-05-08] MEDS: TOPIRAMATE 100 MG TAB PO SCH (09:14)
[2017-05-08] MEDS: LORAZEPAM 0.5 MG TAB PO PRN ×2 (10:01→18:24)
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
[2017-05-08] MEDS: IBUPROFEN 600 MG TAB PO PRN (12:49)
[2017-05-08] MEDS: DIPHENOXYLATE/ATROPINE 2.5/0.025MG TAB PO PRN ×2 (13:29→21:56)
[2017-05-08] MEDS: WARFARIN SOD 5 MG TAB PO SCH (15:34)
[2017-05-08] MEDS ORDERED: TRINTELLIX~ORDER AWAITING ACTION SCH (16:00)
[2017-05-08] MEDS: LACTOBACILLUS ACIDOPHILUS (FLORANEX) TAB PO SCH (17:46)
[2017-05-08] MEDS: hydrOXYzine HCL 25 MG TAB PO PRN ×2 (21:07→21:55)
[2017-05-09] MEDS: LORAZEPAM 0.5 MG TAB PO PRN ×2 (03:10→21:41)
[2017-05-09 07:08] VITALS: BP_SYST 101; BP_SYST 91; BP_DIAS 63; BP_DIAS 68; PULSE 62; PULSE 68; TEMP 36.8
[2017-05-09 08:44] LABS: INR 2.9 (0.9-1.1); PROTHROMBIN TIME (PATIENT) 32.2 SECONDS (9.0-12.0)
[2017-05-09] MEDS: PANTOprazole SOD 40 MG TAB PO SCH (09:21)
[2017-05-09] MEDS: LACTOBACILLUS ACIDOPHILUS (FLORANEX) TAB PO SCH ×3 (09:21→17:36)
[2017-05-09] MEDS: VORTIOXETINE HBR 10 MG TAB PO SCH (09:22)
[2017-05-09] MEDS: TOPIRAMATE 100 MG TAB PO SCH (09:22)
[2017-05-09] MEDS: DOXYCYCLINE HYCLATE 100 MG CAP PO SCH (09:22)
[2017-05-09] MEDS: HYDROCODONE/ACETAMOPHEN 5/325MG TAB PO PRN ×2 (09:31→15:56)
--- NOTE | 2017-05-09 11:09 | Psychiatric Progress Notes ---
Progress Note Date of Service May 09, 2017. Interval History Jemima Pierce is a 46-year-old female who currently lives in [place] with her 15 y/o daughter, has a history of depression who is admitted voluntarily for suicidal ideation following a medical admission for IV antibiotics for pelvic inflammatory disease. Chief Complaint "Headache". Subjective Patient was seen & assessed interval progress reviewed with Nursing. Staff report she stayed in bed most of the day yesterday and refused groups, but did go to part of community meeting, although she did not participate. She did attend 2 of the evening groups. She requested received multiple when necessary medications. She was frequently overwhelmed and tearful. Mood was labile in the evening, and she described it as "all over the place, anxious, erratic, sad. " She continued to endorse suicidal thoughts and wanting to be with her daughter who just . She said she feels guilty if she smiles or feels better for a moment, as she thinks she should be miserable. She received 2 doses of hydroxyzine 50 mg and lorazepam 1mg, but only slept 3.75 hours, and this morning is reporting a headache, nausea and vomiting. She says headaches are often triggered by poor sleep, and is requesting a different sleep medication. She reports nausea and vomiting x 1 and just received Imitrex and ondansetron. Her Trintellix was approved and an Rx sent to her pharmacy, and someone will be bringing it in today. She reports ongoing depression, tearfulness, guilt, irritability and suicidal thoughts. Discussed trial of trazodone, which she says she tried int he past and didn't help. Advised want to avoid additional controlled substances as she is already on Lincoln and Ativan and is taking them multiple times a day. She is asking about Remeron, as she says she took one of her daughters in the past and it helped her sleep. She initially denies SI, then says "if I'm being honest, I want to go be with my daughter (who ), but I can't, because I have another daughter to take care of." She felt unable to take her mind off her thoughts of her daughter who , but says she doesn't want to talk about it in group, "that's private, I don't like that (groups)." Her goals for today are to rest while her migraine succeeds, and then to try to talk about her emotions, possibly one-on-one with staff, but she was encouraged to try doing this in group. Sleep Information Total Hours of Sleep: 3.75 Meal Information Percent of Breakfast Consumed: 100 Percent of Lunch Consumed: 60 Percent of Dinner Consumed: 75 Mental Status Exam During interview pt is: alert and oriented, cooperative, guarded Appearance: appropriately dressed, appropriately groomed Eye contact is: fair Motor behavior is: steady gait & station, no abnormal motor movements Speech: normal in rate, rhythm & volume (angry tone at times) Affect: depressed, tearful, irritable, angry, constricted Mood is: depressed, irritable, angry, anxious Thought process: goal directed (answers are vague at times, and angry when asked to clarify) Thought content: reality based without delusions Suicidal thought are: present, Intent: denied Homicidal thoughts are: denied Hallucinations: denies auditory, denies visual Cognition: language grossly intact Intelligence estimated to be: average Insight: impaired Judgement: impaired Medication Trials (1) Past Psych Medications Effexor XR (patient now says she never took it) Prazosin - helped Trintellix - worked well per patient, stopped because she stopped going to [place] , and her PCP told her she could not prescribe Trintellix Paroxetine - patient can't recall response Citalopram - patient can't recall response Bupropion - overstimulating, really hyper, couldn't calm down, interfered with sleep Quetiapine - sedating Lamotrigine - patient can't recall response Topiramate Alprazolam Zolpidem Last Edited By: Yenni Loera on May 08, 2017 11:09 Impression 46-year-old white female with a history of depression who presented with pelvic pain in the context of an STD, was admitted medically for IV antibiotics, and is now admitted psychiatrically after she endorsed suicidal thoughts with a plan to overdose on her prescription medications in the context of multiple recent losses. She has been placed on Trintellix, which she had a previous good response to. She continues to have irritable and depressed mood with SI, and inpatient treatment in indicated due to risk of suicide if discharged. Plan (1) Depression - For now, continue fluoxetine, but explore option of returning to Trintellix, as she thinks this is the only antidepressant that was helpful. We will start by checking with her insurance to see if it is covered, and if so, we will need to call in a prescription to an outside pharmacy and have a family member bring it in, as it is nonformulary here. - Continue home dose of lorazepam 0.5 mg every 8 hours when necessary. - Involve patient in groups and therapy on the unit, and recommend a family meeting. - Refer for outpatient therapy and psychiatric follow-up. 05/08 - Await Trintellix prior authorization. If not approved, consider increasing fluoxetine vs a trial of venlafaxine XR. - Patient was provided education about hygiene and encouraged to stay out of bed and awake during the day to promote better sleep at night. She was also informed that if she is not able to motivate herself to get out of bed and participate in treatment, that staff will lock her door during group times. Trintellix approved with $3 copay. Will call into her pharmacy and have friend or family bring it in. Then can start 10mg po daily - order in when medication arrives. 05/09 - Start Trintellix 10mg daily. - Offered to increase hydroxyzine vs trial of trazodone for sleep, which she declined. She would like to try mirtazapine, which she took once and found helpful. Will try 15mg qhs. Avoid additional controlled substances, as already on lorazepam and Lincoln and getting them multiple times daily. - Encourage family meeting and involvement of support system. - Referred to [facility] for psychiatry and Denisse Boyle for therapy. (2) PTSD (post-traumatic stress disorder) 05/08 - Patient reporting nightmares and requesting to resume prazosin, which was helpful in the past. - Will need referral for therapy, as never followed up as directed by previous psychiatrist. (3) Seizure Continue home doses of topiramate, and coordinate care with outpatient neurologist, Dr. Verma. (4) Pelvic inflammatory disease Complete course of doxycycline. Will need follow up with PCP. - Per hospitalist discharge, needs Urology f/u for workup on urinary retention. 05/08 - call Dr. Turpin's office and spoke with nursing staff, requested a call back to relay results of the patient's pelvic cultures at the patient's request , and she will also need a follow-up appointment scheduled with Dr. Turpin. - Probiotic started for diarrhea at patient's request, and also ordered Lomotil when necessary. 05/09 - Patient informed of message from PCP's office that STD testing was negative. Patient wants to know why she is still on an antibiotic. Contacted Dr. Claudio for recommendations re: the antibiotic, as Dr. Dowling is off service and I have not been able to reach her PCP, Dr. Turpin. He is able to view her records on the [employer] system, and confirmed that her Chlamydia and gonorrhea tests from her [facility] visit on 05/03/2017 were negative. He recommended stopping the doxycycline, checking a C. difficile given her diarrhea and risk factors, and consulting gynecology if she has ongoing pelvic pain. These recommendations were reviewed with the patient as well. (5) Factor V Leiden Coumadin held today, but will resume tomorrow, and will check daily PT/INRs. Coordinate follow-up with PCP. 05/08 - INR 2.9 (goal 2-3). Continue warfarin and daily PT/INR. 05/09 - INR 2.9. Continue current dose (6) Tobacco abuse Educate the patient about the risks of smoking and offer smoking cessation education and medication. (7) Head ache -Continue home dose of Imitrex and ondansetron for nausea or vomiting. Discharge / Aftercare Planning Primary Care Physician: Name: Rula Turpin Date of Appointment: May 18, 2017 Time of Appointment: 1125pm Psychiatrist: Name: .[facility] Appointment Notes: You will be assigned a Psychiatrist after your Intake appointment Therapist: Name: [facility] Intake with Jesenia Cobb Date of Appointment: May 21, 2017 Time of Appointment: 9:00am Neurologist: Name: Dr Garcia Visit Code E&M Code: 30152 Inventory Assets Strengths: Responsible for 15 year-old daughter, willing for treatment Risk Factors Assessment : Yes /single/: Yes Higher / Fall in social status: No Health problems: Yes Mental Health Diagnoses: Yes Previous attempt: Yes Previous psychiatric stay: No Hopelessness: Yes Smoker: Yes Protective Factors Assessment Uatsdin beliefs: No : No Responsible for young children: Yes Employed: Yes Good rapport with provider: No Data Vital Signs Last 24 Hrs: Date Time Temp Pulse Resp B/P (MAP) Pulse Ox O2 Delivery O2 Flow Rate FiO2 05/09/17 07:08 36.8 62 16 91/63 68 101/68 Meds Administered Last 24 Hrs: Meds Administered (Past 24Hrs) Medications (Trade) Dose Ordered Sig/Cassy Route Start Time Stop Time Status Last Admin Dose Admin Acetaminophen/ Hydrocodone Bitart (Lincoln 5/325 Tab) 1 tab Q6 PRN PO 05/07/17 14:30 05/21/17 14:29 05/09/17 09:31 1 TAB Ibuprofen (Motrin Tab) 600 mg TID PRN PO 05/07/17 14:30 06/06/17 14:29 05/08/17 12:49 600 MG Lorazepam (Ativan Tab) 0.5 mg Q8 PRN PO 05/07/17 14:30 06/06/17 14:29 05/09/17 03:10 0.5 MG Topiramate (Topamax Tab) 400 mg QAM PO 05/08/17 09:00 06/07/17 08:59 05/09/17 09:22 400 MG Warfarin Sodium (Coumadin Tab) 5 mg DAILY@1600 PO 05/08/17 16:00 06/07/17 15:59 05/08/17 15:34 5 MG Bismuth Subsalicylate (Kaopectate Liqd) 15 ml PRN PRN PO 05/07/17 14:45 06/06/17 14:44 05/08/17 09:47 15 ML Hydroxyzine HCl (Vistaril Tab) 50 mg HSZ PRN PO 05/07/17 14:45 06/06/17 14:44 05/08/17 21:55 50 MG Doxycycline Hyclate (Vibramycin Cap) 100 mg BID PO 05/07/17 22:00 05/18/17 21:59 05/09/17 09:22 100 MG Pantoprazole Sodium (Protonix Tab) 40 mg DAILY PO 05/08/17 09:00 06/07/17 08:59 05/09/17 09:21 40 MG Fluoxetine HCl (Prozac Cap) 40 mg DAILY PO 05/08/17 09:00 05/08/17 13:38 DC 05/08/17 09:13 40 MG Diphenoxylate HCl/ Atropine (Lomotil Tab) 1 tab Q8 PRN PO 05/08/17 11:15 06/07/17 11:14 05/08/17 21:56 1 TAB Lactobacillus Acidophilus (Floranex Tab) 4 tab TIDM PO 05/08/17 17:45 06/07/17 17:44 05/09/17 09:21 4 TAB Vortioxetine (Trintellix) 10 mg DAILY PO 05/09/17 09:00 06/08/17 08:59 05/09/17 09:22 10 MG Lab Results Last 24 Hrs: Last 24 Hours Test 05/09/17 08:13 Prothrombin Time 32.2 SECONDS Prothromb Time International Ratio 2.9 Problem Qualifiers (1) Depression: Depression Type: major depressive disorder Major depression recurrence: recurrent Active/Remission status: currently active Major depression episode severity: severe Psychotic features: without psychotic features Qualified Codes: F33.2 - Major depressive disorder, recurrent severe without psychotic features
[2017-05-09] MEDS: WARFARIN SOD 5 MG TAB PO SCH (15:56)
[2017-05-09] MEDS: IBUPROFEN 600 MG TAB PO PRN (17:39)
[2017-05-09] MEDS: PRAZOSIN HCL 1 MG CAP PO SCH (21:00)
[2017-05-09] MEDS: MIRTAZAPINE TAB 15 MG TAB PO SCH (21:00)
[2017-05-09] MEDS: hydrOXYzine HCL 25 MG TAB PO PRN (22:30)
[2017-05-10 06:55] VITALS: BP_SYST 102; BP_SYST 95; BP_DIAS 64; BP_DIAS 68; PULSE 63; PULSE 76; TEMP 36.8
[2017-05-10 07:25] LABS: INR 3.4 (0.9-1.1); PROTHROMBIN TIME (PATIENT) 38.7 SECONDS (9.0-12.0)
[2017-05-10] MEDS: LACTOBACILLUS ACIDOPHILUS (FLORANEX) TAB PO SCH ×4 (09:00→17:45)
[2017-05-10] MEDS: PANTOprazole SOD 40 MG TAB PO SCH (09:34)
[2017-05-10] MEDS: VORTIOXETINE HBR 10 MG TAB PO SCH (09:35)
[2017-05-10] MEDS: TOPIRAMATE 100 MG TAB PO SCH (09:35)
[2017-05-10] MEDS: HYDROCODONE/ACETAMOPHEN 5/325MG TAB PO PRN ×2 (11:23→21:43)
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
[2017-05-10] MEDS: WARFARIN SOD 5 MG TAB PO SCH (16:08)
[2017-05-10] MEDS: IBUPROFEN 600 MG TAB PO PRN (16:11)
--- NOTE | 2017-05-10 17:24 | DIAGNOSTIC IMAGING REPORT ---
PELVIC ULTRASOUND, TRANSABDOMINAL HISTORY: pelvic pain COMPARISON: Pelvic ultrasound 02/19/2017. FINDINGS: The patient deferred transvaginal imaging. Uterus: Unremarkable. Endometrial stripe: 1.2 cm in thickness. This contains a trace amount of fluid. Right ovary: Normal in size and demonstrates normal color flow. Left ovary: Normal in size and demonstrates normal color flow. A 2 cm simple cyst. Miscellaneous:No pelvic free fluid. IMPRESSION: 1. The endometrial stripe is top normal in thickness measuring 1.2 cm. This contains a trace amount of fluid. 2. The ovaries are within normal limits. Electronically signed by: Balwinder Beltran M.D. 05/10/2017 5:23 PM Dictated Date/Time: 05/10/2017 5:21 PM
[2017-05-10] MEDS: LORAZEPAM 0.5 MG TAB PO PRN (21:38)
[2017-05-10] MEDS: MIRTAZAPINE TAB 15 MG TAB PO SCH (21:38)
[2017-05-10] MEDS: hydrOXYzine HCL 25 MG TAB PO PRN ×2 (21:38→23:09)
[2017-05-10] MEDS: PRAZOSIN HCL 1 MG CAP PO SCH (21:38)
--- NOTE | 2017-05-11 00:33 | Medical Consult ---
Consultation Date of Consultation: May 10, 2017. Attending Physician: Yenni Loera MD Reason for Consultation: Pelvic pain History of Present Illness Patient is a 46 yo female who was admitted for depression/ PTSD after she found her 24 yo daughter . She has been having intermittent pelvic pain for the last few months They feel like mild menstrual cramps and come and go. They get worse with her periods Pain is between 4-6/10 Better since she received IV AB's in ER She gets her periods regularly every month with heavy flow since she had been on Coumadin If she stops her Coumadin for 2 days and then they are not heavy They last for 5 days They cause severe cramps for which she takes Hydrocodone, unable to take Motrin. She has not been sexually active Her most recent partner called her that he had Gonorrhea. Thye were together about 2.5 weeks ago, has not been with him since then She presented to [facility] and referred to ER for IV AB on 05/03 She was on Doxycycline was advised to stop Her cultures come back negative She denies vaginal discharge/ itching/ irritation odor She denies pain or bleeding with SI She had h/o renal stones and last CT of abdomen showed stones She thinks she had ovarian cyst but not mentioned on CT scan She has not had pelvic US yet Her OB hx is significant for 2 FT Last pap smear was in 05/2016 and was normal LMP was about 4 weeks ago, she is due for next in 1-2 days Past Medical/Surgical History Medical Problems: (1) Asthma, Unspecified Status: Chronic (2) Bipolar Disorder, Unspecified Status: Chronic (3) Coagulopathy Status: Acute (4) Common Migraine W/O Intractable Migraine Status: Chronic (5) DVT (deep venous thrombosis) Status: Acute (6) Epilepsy, Unsp, Not Intractable, Without Status Epilepticus Status: Chronic (7) Episode of heavy vaginal bleeding Status: Acute (8) Factor V Leiden Status: Chronic (9) Failure of outpatient treatment Status: Acute (10) Hypokalemia Status: Acute (11) Left leg DVT Status: Acute (12) Left leg DVT Status: Acute (13) Left leg pain Status: Acute (14) Intermediate (Current) Use Of 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 Status: Chronic (15) Lower abdominal pain Status: Acute (16) On anticoagulant therapy Status: Acute (17) Pelvic cramping Status: Acute (18) PID (acute pelvic inflammatory disease) Status: Acute (19) Right ankle sprain Status: Acute (20) Right-sided chest pain Status: Acute (21) Shortness of breath Status: Acute (22) Shortness of breath Status: Acute Family History FH: cancer Gallbladder disease Kidney disease Kidney stones Social History Smoking Status: Current Some Day Smoker Drug Use: none Marital Status: Housing Status: lives with family Occupation Status: employed Allergies Coded Allergies: Morphine (Verified Allergy, Intermediate, chest pain; trouble breathing, 05/03/17) Chocolate (Verified Allergy, Unknown, 05/03/17) Kiwi (Verified Allergy, Unknown, ANAPHYLAXIS, 05/03/17) NUTS (Unverified Allergy, Unknown, ANAPHYLAXIS, 05/03/17) Peanut (Verified Allergy, Unknown, 05/03/17) Prochlorperazine (Verified Allergy, Unknown, SEVERE ALLERGIC RXN, 05/03/17) Current Inpatient Medications Current Inpatient Medications Medications (Trade) Dose Ordered Sig/Cassy Route Start Time Stop Time Status Last Admin Dose Admin Albuterol (Ventolin Hfa Inhaler) 2 puffs QID PRN INH 05/07/17 14:30 06/06/17 14:29 Acetaminophen/ Hydrocodone Bitart ([place] 5/325 Tab) 1 tab Q6 PRN PO 05/07/17 14:30 05/21/17 14:29 05/10/17 11:23 1 TAB Ibuprofen (Motrin Tab) 600 mg TID PRN PO 05/07/17 14:30 06/06/17 14:29 05/09/17 17:39 600 MG Lorazepam (Ativan Tab) 0.5 mg Q8 PRN PO 05/07/17 14:30 06/06/17 14:29 05/09/17 21:41 0.5 MG Ondansetron HCl (Zofran Tab) 4 mg Q6 PRN PO 05/07/17 14:30 06/06/17 14:29 05/09/17 10:43 4 MG Sumatriptan Succinate (Imitrex Tab) 50 mg UD PRN PO 05/07/17 14:30 06/06/17 14:29 05/09/17 10:48 50 MG Topiramate (Topamax Tab) 400 mg QAM PO 05/08/17 09:00 06/07/17 08:59 05/10/17 09:35 400 MG Warfarin Sodium (Coumadin Tab) 5 mg DAILY@1600 PO 05/08/17 16:00 06/07/17 15:59 05/09/17 15:56 5 MG Acetaminophen (Tylenol Tab) 650 mg Q4H PRN PO 05/07/17 14:45 06/06/17 14:44 Bismuth Subsalicylate (Kaopectate Liqd) 15 ml PRN PRN PO 05/07/17 14:45 06/06/17 14:44 05/08/17 09:47 15 ML Al Hydroxide/Mg Hydroxide (Maalox Susp) 30 ml Q4H PRN PO 05/07/17 14:45 06/06/17 14:44 Magnesium Hydroxide (Milk Of Magnesia Susp) 30 ml DAILY PRN PO 05/07/17 14:45 06/06/17 14:44 Sodium Chloride ([place] Nasal [place]) PRN PRN NA 05/07/17 14:45 06/06/17 14:44 Hydroxyzine HCl (Vistaril Tab) 50 mg HSZ PRN PO 05/07/17 14:45 06/06/17 14:44 05/09/17 22:30 50 MG Hydroxyzine HCl (Vistaril Tab) 25 mg Q4H PRN PO 05/07/17 14:45 06/06/17 14:44 Pantoprazole Sodium (Protonix Tab) 40 mg DAILY PO 05/08/17 09:00 06/07/17 08:59 05/10/17 09:34 40 MG Diphenoxylate HCl/ Atropine (Lomotil Tab) 1 tab Q8 PRN PO 05/08/17 11:15 06/07/17 11:14 05/08/17 21:56 1 TAB Lactobacillus Acidophilus (Floranex Tab) 4 tab TIDM PO 05/08/17 17:45 06/07/17 17:44 05/09/17 17:36 4 TAB Vortioxetine (Trintellix) 10 mg DAILY PO 05/09/17 09:00 06/08/17 08:59 05/10/17 09:35 10 MG Mirtazapine (Remeron Tab) 15 mg HS PO 05/09/17 22:00 06/08/17 21:59 05/09/17 21:00 15 MG Prazosin HCl (Prazosin) 1 mg HS PO 05/09/17 22:00 06/08/17 21:59 05/09/17 21:00 1 MG Review of Systems Constitutional: + fever, + chills, + sweats, + weight loss, No weakness, No fatigue, No problem reported Abdomen: + nausea, + vomiting, + diarrhea, + constipation, No pain, No GI bleeding, No problem reported Genitourinary - Female: + dysmenorrhea, + menorrhagia Psychiatric: + depression symptoms, + anhedonism, + anxiety, + insomnia, + substance abuse, + problem reported Physical Exam Date Time Temp Pulse Resp B/P (MAP) Pulse Ox O2 Delivery O2 Flow Rate FiO2 05/10/17 06:55 36.8 63 16 95/64 76 102/68 General Appearance: WD/WN, no apparent distress Head: normocephalic, atraumatic Cardiovascular: regular rate, rhythm, no edema Abdomen/GI: non tender, no organomegaly Genitourinary - Female: external genitalia normal, normal pelvic exam, uterus normal shape and size, normal ovaries and adnexa, + pertinent finding (yellow d/ c in upper vagina, culture was obtained) Extremities/Musculoskelatal: normal inspection, no calf tenderness Skin: normal color, warm/dry, no rash Laboratory Results Last 24 Hours Test 05/10/17 06:38 Prothrombin Time 38.7 SECONDS Prothromb Time International Ratio 3.4 Assessment & Plan 46 yo female with intermittent pelvic pain, h/o dysmenorrhea Recent exposure to STD, s/p IV AB, negative cervical cx on 05/03 Normal pelvic exam except small d/c, cultures obtained for BV No CMT Normal WBCC Plan: await gram stain, vaginal cx Pelvic US for pelvic pain F/U in office for routine spindle tester exams, pap smear, MG Will follow up results All questions were answered PS: US done last night: abdominal, refused vaginal Normal ovaries, endometrium 1.2 cm most likley due for her next period Culture pending Discussed above with her and recommended f/u visit at office We will contact her with appointment Our office number: [phone]
[2017-05-11] MEDS: IBUPROFEN 600 MG TAB PO PRN ×2 (07:00→16:22)
[2017-05-11 07:09] VITALS: BP_SYST 106; BP_SYST 88; BP_DIAS 54; BP_DIAS 70; PULSE 66; PULSE 84; TEMP 37
[2017-05-11] MEDS: LACTOBACILLUS ACIDOPHILUS (FLORANEX) TAB PO SCH ×2 (09:22→09:28)
[2017-05-11] MEDS: PANTOprazole SOD 40 MG TAB PO SCH (09:22)
[2017-05-11] MEDS: TOPIRAMATE 100 MG TAB PO SCH (09:22)
[2017-05-11] MEDS: VORTIOXETINE HBR 10 MG TAB PO SCH (09:24)
[2017-05-11] MEDS: HYDROCODONE/ACETAMOPHEN 5/325MG TAB PO PRN ×2 (09:24→23:37)
--- NOTE | 2017-05-11 12:56 | Psychiatric Progress Notes ---
Progress Note Date of Service May 11, 2017. Interval History Jemima Pierce is a 46-year-old female who currently lives in [place] with her 15 y/o daughter, has a history of depression who is admitted voluntarily for suicidal ideation following a medical admission for IV antibiotics for pelvic inflammatory disease. Chief Complaint "Better.". Subjective Patient was seen & assessed interval progress reviewed with Treatment Team. The patient says that she is feeling better today. She continues to process her losses, the impact to her life. Her daughter's in still under investigation, but "I'm not sure its going to make any difference: she's gone. ". She is now more focused on being there for her 15 yo daughter Abril, "I'm all she has.". Her sleep was difficult again last night, which frustrated her, but she also got her period today and wonders if some of her insomnia was related to that. Appetite has been variable. Staff report that she has been participating in groups and individual counseling. She plans to refuse her coumadin for the next 2 days because of her period, which is her usual practice. She feels that she is doing a good job here dealing with her depression, and also believes the meds to be working. Review of Systems Constitutional: No fever, No chills, No sweats, No weight loss, No weakness, No fatigue, No problem reported ENT: No hearing loss, No unusual epistaxis, No nasal symptoms, No sore throat, No tinnitus, No dental problems, No trouble swallowing, No problem reported Respiratory: No cough, No sputum, No wheezing, No shortness of breath, No dyspnea on exertion, No dyspnea at rest, No hemoptysis, No problem reported Cardiovascular: No chest pain, No orthopnea, No PND, No edema, No claudication , No palpitations, No problem reported Abdomen: No pain, No nausea, No vomiting, No diarrhea, No constipation, No GI bleeding, No problem reported Musculoskeletal: No joint pain, No muscle pain, No swelling, No calf pain, No problem reported Neurologic: No memory loss, No paralysis, No weakness, No numbness/tingling, No vertigo, No balance problems, No problem reported Psychiatric: + depression symptoms, + insomnia (bb) Sleep Information Total Hours of Sleep: 4.50 Meal Information Percent of Breakfast Consumed: 25 Percent of Lunch Consumed: 75 Percent of Dinner Consumed: 100 Mental Status Exam During interview pt is: alert and oriented, cooperative Appearance: appropriately dressed, appropriately groomed Eye contact is: good Motor behavior is: steady gait & station, no abnormal motor movements Speech: normal in rate, rhythm & volume (angry tone at times) Affect: depressed Mood is: depressed, anxious Thought process: goal directed Thought content: reality based without delusions Suicidal thought are: denied Homicidal thoughts are: denied Hallucinations: denies auditory, denies visual Cognition: language grossly intact Intelligence estimated to be: average Insight: impaired Judgement: impaired Medication Trials (1) Past Psych Medications Effexor XR (patient now says she never took it) Prazosin - helped Trintellix - worked well per patient, stopped because she stopped going to [facility] , and her PCP told her she could not prescribe Trintellix Paroxetine - patient can't recall response Citalopram - patient can't recall response Bupropion - overstimulating, really hyper, couldn't calm down, interfered with sleep Quetiapine - sedating Lamotrigine - patient can't recall response Topiramate Alprazolam Zolpidem Last Edited By: Yenni Loera on May 08, 2017 11:09 Impression The patient is making use of her hospitalization, processing her grief and organizing her life priorities. She is not suicidal and prioritizing her 15 yo daughter as a protective factor. INR elevated yesterday at 3.4, no labs today. Patient plans to refuse coumadin the next 2 days because of her period. Will resume PT/INR's tomorrow to trend. Will increase Trintellix to 15 mg. daily. Plan (1) Depression - For now, continue fluoxetine, but explore option of returning to Trintellix, as she thinks this is the only antidepressant that was helpful. We will start by checking with her insurance to see if it is covered, and if so, we will need to call in a prescription to an outside pharmacy and have a family member bring it in, as it is nonformulary here. - Continue home dose of lorazepam 0.5 mg every 8 hours when necessary. - Involve patient in groups and therapy on the unit, and recommend a family meeting. - Refer for outpatient therapy and psychiatric follow-up. 05/08 - Await Trintellix prior authorization. If not approved, consider increasing fluoxetine vs a trial of venlafaxine XR. - Patient was provided education about hygiene and encouraged to stay out of bed and awake during the day to promote better sleep at night. She was also informed that if she is not able to motivate herself to get out of bed and participate in treatment, that staff will lock her door during group times. Trintellix approved with $3 copay. Will call into her pharmacy and have friend or family bring it in. Then can start 10mg po daily - order in when medication arrives. 05/09 - Start Trintellix 10mg daily. - Offered to increase hydroxyzine vs trial of trazodone for sleep, which she declined. She would like to try mirtazapine, which she took once and found helpful. Will try 15mg qhs. Avoid additional controlled substances, as already on lorazepam and [place] and getting them multiple times daily. - Encourage family meeting and involvement of support system. - Referred to [facility] for psychiatry and Denisse Boyle for therapy. 05/10 - Continue Trintellix, and can increase to 15 mg daily over the next couple of days - Continue mirtazapine 15 mg daily at bedtime. Continue home dose of lorazepam when necessary. - She will need a robust safety plan, to include management of her medications, as she had suicidal thoughts to overdose and is on numerous medications. 05/11 - Increase Trintellix to 15 mg. daily (2) PTSD (post-traumatic stress disorder) 05/08 - Patient reporting nightmares and requesting to resume prazosin, which was helpful in the past. - Will need referral for therapy, as never followed up as directed by previous psychiatrist. (3) Seizure Continue home doses of topiramate, and coordinate care with outpatient neurologist, Dr. Verma. (4) Pelvic inflammatory disease Complete course of doxycycline. Will need follow up with PCP. - Per hospitalist discharge, needs Urology f/u for workup on urinary retention. 05/08 - call Dr. Turpin's office and spoke with nursing staff, requested a call back to relay results of the patient's pelvic cultures at the patient's request , and she will also need a follow-up appointment scheduled with Dr. Turpin. - Probiotic started for diarrhea at patient's request, and also ordered Lomotil when necessary. 05/09 - Patient informed of message from PCP's office that STD testing was negative. Patient wants to know why she is still on an antibiotic. Contacted Dr. Claudio for recommendations re: the antibiotic, as Dr. Dowling is off service and I have not been able to reach her PCP, Dr. Turpin. He is able to view her records on the [facility] system, and confirmed that her Chlamydia and gonorrhea tests from her [employer] works visit on 05/03/2017 were negative. He recommended stopping the doxycycline, checking a C. difficile given her diarrhea and risk factors, and consulting gynecology if she has ongoing pelvic pain. These recommendations were reviewed with the patient as well. 05/10 - RN INVASIVE consulted, and we are awaiting the recommendations. (5) Factor V Leiden Coumadin held today, but will resume tomorrow, and will check daily PT/INRs. Coordinate follow-up with PCP. 05/08 - INR 2.9 (goal 2-3). Continue warfarin and daily PT/INR. 05/09 - INR 2.9. Continue current dose 05/11 - Started menses today, and usually refuses coumadin the first 2 days of period. INR 3.4 yesterday so holding dose is appropriate. Will restart PT/INR' s tomorrow to trend. (6) Tobacco abuse Educate the patient about the risks of smoking and offer smoking cessation education and medication. (7) Head ache -Continue home dose of Imitrex and ondansetron for nausea or vomiting. Discharge / Aftercare Planning Primary Care Physician: Name: Rula Turpin Date of Appointment: May 18, 2017 Time of Appointment: 1125pm [facility] Notes: You will be assigned a Psychiatrist after your Intake appointment Therapist: Name: [facility] Intake with Jesenia Cobb Date of Appointment: May 21, 2017 Time of Appointment: 9:00am Neurologist: Name: Dr Garcia Visit Code E&M Code: 61823 Inventory Assets Strengths: Responsible for 15 year-old daughter, willing for treatment Risk Factors Assessment : Yes /single/: Yes Higher / Fall in social status: No Health problems: Yes Mental Health Diagnoses: Yes Previous attempt: Yes Previous psychiatric stay: No Hopelessness: Yes Smoker: Yes Protective Factors Assessment Hoahaoism beliefs: No : No Responsible for young children: Yes Employed: Yes Good rapport with provider: No Data Vital Signs Last 24 Hrs: Date Time Temp Pulse Resp B/P (MAP) Pulse Ox O2 Delivery O2 Flow Rate FiO2 05/11/17 07:09 37.0 66 16 88/54 84 106/70 Meds Administered Last 24 Hrs: Meds Administered (Past 24Hrs) Medications (Trade) Dose Ordered Sig/Cassy Route Start Time Stop Time Status Last Admin Dose Admin Mirtazapine (Remeron Tab) 15 mg HS PO 05/09/17 22:00 06/08/17 21:59 05/10/17 21:38 15 MG Prazosin HCl (Prazosin) 1 mg HS PO 05/09/17 22:00 06/08/17 21:59 05/10/17 21:38 1 MG Lab Results Last 24 Hrs: 05/08/17 07:19 Test 05/08/17 07:19 05/10/17 06:38 Red Blood Count 4.22 M/uL (4.2-5.4) Mean Corpuscular Volume 97.2 fL (80-100) Mean Corpuscular Hemoglobin 33.6 pg (25-34) Mean Corpuscular Hemoglobin Concent 34.6 g/dl (32-36) RDW Standard Deviation 45.4 fL (36.4-46.3) RDW Coefficient of Variation 12.8 % (11.5-14.5) Mean Platelet Volume 10.5 fL (7.4-10.4) Prothrombin Time 38.7 SECONDS (9.0-12.0) Prothromb Time International Ratio 3.4 (0.9-1.1) Date/Time Source Procedure Growth Status 05/09/17 18:33 Stool C.difficile Toxin B Gene (PCR) - Final No C. difficile toxin B gene detected Complete 05/10/17 15:45 Genital Female Gram Stain - Final Resulted 05/10/17 15:45 Genital Female Genital Culture Pending Resulted Problem Qualifiers (1) Depression: Depression Type: major depressive disorder Major depression recurrence: recurrent Active/Remission status: currently active Major depression episode severity: severe Psychotic features: without psychotic features Qualified Codes: F33.2 - Major depressive disorder, recurrent severe without psychotic features
[2017-05-11] MEDS: WARFARIN SOD 5 MG TAB PO SCH (16:00)
[2017-05-11] MEDS: MIRTAZAPINE TAB 15 MG TAB PO SCH (21:29)
[2017-05-11] MEDS: PRAZOSIN HCL 1 MG CAP PO SCH (21:29)
[2017-05-11] MEDS: LORAZEPAM 0.5 MG TAB PO PRN (23:36)
[2017-05-12 06:45] VITALS: BP_SYST 111; BP_SYST 114; BP_DIAS 74; BP_DIAS 83; PULSE 69; PULSE 83; TEMP 36.8
[2017-05-12] MEDS: IBUPROFEN 600 MG TAB PO PRN ×2 (08:04→14:54)
[2017-05-12 08:16] LABS: INR 3.1 (0.9-1.1)
[2017-05-12] MEDS: TOPIRAMATE 100 MG TAB PO SCH (08:56)
[2017-05-12] MEDS: PANTOprazole SOD 40 MG TAB PO SCH (08:56)
[2017-05-12] MEDS: VORTIOXETINE HBR 10 MG TAB PO SCH (08:56)
--- NOTE | 2017-05-12 09:28 | Psychiatric Progress Notes ---
Progress Note Date of Service May 12, 2017. Interval History Jemima Pierce is a 46-year-old female who currently lives in [place] with her 15 y/o daughter, has a history of depression who is admitted voluntarily for suicidal ideation following a medical admission for IV antibiotics for pelvic inflammatory disease. Chief Complaint "I slept.". Subjective Patient was seen & assessed interval progress reviewed with Treatment Team. The patient's mood remains up, saying that she got a good night's sleep last night. This AM she is enjoying watching a movie. She was having bad menstrual cramps last night and so took a norco which was effective and likely helped her sleep. She had a visit from her daughter Abril which went well. Abril is staying with her ex mother in law whom she refers to as Wilfredo. Her daughter is staying with her while she is in the hospital, and the patient will plan to join them after discharge for the . She has maintained a good relationship with her ex MIL, saying that she is welcome there anytime and knows that she is loved and supported by her. She is hoping to be discharged on Sunday so that she can attend a CPR training scheduled by work next week. She continues to deny SI, and remains more hopeful, wanting to be a good mom to her daughter Abril. Review of Systems Constitutional: No fever, No chills, No sweats, No weight loss, No weakness, No fatigue, No problem reported ENT: No hearing loss, No unusual epistaxis, No nasal symptoms, No sore throat, No tinnitus, No dental problems, No trouble swallowing, No problem reported Respiratory: No cough, No sputum, No wheezing, No shortness of breath, No dyspnea on exertion, No dyspnea at rest, No hemoptysis, No problem reported Cardiovascular: No chest pain, No orthopnea, No PND, No edema, No claudication , No palpitations, No problem reported Abdomen: No pain, No nausea, No vomiting, No diarrhea, No constipation, No GI bleeding, No problem reported Musculoskeletal: + problem reported (menstrual cramps) Neurologic: No memory loss, No paralysis, No weakness, No numbness/tingling, No vertigo, No balance problems, No problem reported Psychiatric: + depression symptoms (improving) Sleep Information Total Hours of Sleep: 5.75 Meal Information Percent of Breakfast Consumed: 80 Percent of Lunch Consumed: 90 Percent of Dinner Consumed: 100 Mental Status Exam During interview pt is: alert and oriented, cooperative Appearance: appropriately dressed, appropriately groomed Eye contact is: good Motor behavior is: steady gait & station, no abnormal motor movements Speech: normal in rate, rhythm & volume (angry tone at times) Affect: depressed Mood is: depressed Thought process: goal directed Thought content: reality based without delusions Suicidal thought are: denied Homicidal thoughts are: denied Hallucinations: denies auditory, denies visual Cognition: language grossly intact Intelligence estimated to be: average Insight: impaired Judgement: impaired Medication Trials (1) Past Psych Medications Effexor XR (patient now says she never took it) Prazosin - helped Trintellix - worked well per patient, stopped because she stopped going to [facility] , and her PCP told her she could not prescribe Trintellix Paroxetine - patient can't recall response Citalopram - patient can't recall response Bupropion - overstimulating, really hyper, couldn't calm down, interfered with sleep Quetiapine - sedating Lamotrigine - patient can't recall response Topiramate Alprazolam Zolpidem Last Edited By: Yenni Loera on May 08, 2017 11:09 Impression Having another good day so far, and is without SI. Slept better last night, which had been a problem. Is refusing coumadin X 2 days at start of menses, INR today down to 3.1. Will continue to monitor. If progress continues, will likely be able to discharge on Sunday. Plan (1) Depression - For now, continue fluoxetine, but explore option of returning to Trintellix, as she thinks this is the only antidepressant that was helpful. We will start by checking with her insurance to see if it is covered, and if so, we will need to call in a prescription to an outside pharmacy and have a family member bring it in, as it is nonformulary here. - Continue home dose of lorazepam 0.5 mg every 8 hours when necessary. - Involve patient in groups and therapy on the unit, and recommend a family meeting. - Refer for outpatient therapy and psychiatric follow-up. 05/08 - Await Trintellix prior authorization. If not approved, consider increasing fluoxetine vs a trial of venlafaxine XR. - Patient was provided education about hygiene and encouraged to stay out of bed and awake during the day to promote better sleep at night. She was also informed that if she is not able to motivate herself to get out of bed and participate in treatment, that staff will lock her door during group times. Trintellix approved with $3 copay. Will call into her pharmacy and have friend or family bring it in. Then can start 10mg po daily - order in when medication arrives. 05/09 - Start Trintellix 10mg daily. - Offered to increase hydroxyzine vs trial of trazodone for sleep, which she declined. She would like to try mirtazapine, which she took once and found helpful. Will try 15mg qhs. Avoid additional controlled substances, as already on lorazepam and [place] and getting them multiple times daily. - Encourage family meeting and involvement of support system. - Referred to [facility] for psychiatry and Denisse Boyle for therapy. 05/10 - Continue Trintellix, and can increase to 15 mg daily over the next couple of days - Continue mirtazapine 15 mg daily at bedtime. Continue home dose of lorazepam when necessary. - She will need a robust safety plan, to include management of her medications, as she had suicidal thoughts to overdose and is on numerous medications. 05/11 - Increase Trintellix to 15 mg. daily 05/12 - Continue current meds and plan (2) PTSD (post-traumatic stress disorder) 05/08 - Patient reporting nightmares and requesting to resume prazosin, which was helpful in the past. - Will need referral for therapy, as never followed up as directed by previous psychiatrist. (3) Seizure Continue home doses of topiramate, and coordinate care with outpatient neurologist, Dr. Verma. (4) Pelvic inflammatory disease Complete course of doxycycline. Will need follow up with PCP. - Per hospitalist discharge, needs Urology f/u for workup on urinary retention. 05/08 - call Dr. Turpin's office and spoke with nursing staff, requested a call back to relay results of the patient's pelvic cultures at the patient's request , and she will also need a follow-up appointment scheduled with Dr. Turpin. - Probiotic started for diarrhea at patient's request, and also ordered Lomotil when necessary. 05/09 - Patient informed of message from PCP's office that STD testing was negative. Patient wants to know why she is still on an antibiotic. Contacted Dr. Claudio for recommendations re: the antibiotic, as Dr. Dowling is off service and I have not been able to reach her PCP, Dr. Turpin. He is able to view her records on the [employer] system, and confirmed that her Chlamydia and gonorrhea tests from her [facility] visit on 05/03/2017 were negative. He recommended stopping the doxycycline, checking a C. difficile given her diarrhea and risk factors, and consulting gynecology if she has ongoing pelvic pain. These recommendations were reviewed with the patient as well. 05/10 - SCALE TESTER consulted, and we are awaiting the recommendations. (5) Factor V Leiden Coumadin held today, but will resume tomorrow, and will check daily PT/INRs. Coordinate follow-up with PCP. 05/08 - INR 2.9 (goal 2-3). Continue warfarin and daily PT/INR. 05/09 - INR 2.9. Continue current dose 05/11 - Started menses today, and usually refuses coumadin the first 2 days of period. INR 3.4 yesterday so holding dose is appropriate. Will restart PT/INR' s tomorrow to trend. 05/12 - INR 3.1. Patient refusing coumadin again today with menses. Will monitor (6) Tobacco abuse Educate the patient about the risks of smoking and offer smoking cessation education and medication. (7) Head ache -Continue home dose of Imitrex and ondansetron for nausea or vomiting. Discharge / Aftercare Planning Primary Care Physician: Name: Rula Turpin Date of Appointment: May 18, 2017 Time of Appointment: 1125pm Psychiatrist: Name: .[facility] Appointment Notes: You will be assigned a Psychiatrist after your Intake appointment Therapist: Name: [facility] Intake with Jesenia Cobb Date of Appointment: May 21, 2017 Time of Appointment: 9:00am Neurologist: Name: Dr Garcia Visit Code E&M Code: 91887 Inventory Assets Strengths: Responsible for 15 year-old daughter, willing for treatment Risk Factors Assessment : Yes /single/: Yes Higher / Fall in social status: No Health problems: Yes Mental Health Diagnoses: Yes Previous attempt: Yes Previous psychiatric stay: No Hopelessness: Yes Smoker: Yes Protective Factors Assessment Latter Day beliefs: No : No Responsible for young children: Yes Employed: Yes Good rapport with provider: No Data Vital Signs Last 24 Hrs: Date Time Temp Pulse Resp B/P (MAP) Pulse Ox O2 Delivery O2 Flow Rate FiO2 05/12/17 06:45 36.8 69 18 114/83 83 111/74 Meds Administered Last 24 Hrs: Meds Administered (Past 24Hrs) Medications (Trade) Dose Ordered Sig/Cassy Route Start Time Stop Time Status Last Admin Dose Admin Vortioxetine (Trintellix) 15 mg DAILY PO 05/12/17 09:00 06/11/17 08:59 05/12/17 08:56 15 MG Lab Results Last 24 Hrs: Last 24 Hours Test 05/12/17 07:41 Prothrombin Time 35.0 SECONDS Prothromb Time International Ratio 3.1 Problem Qualifiers (1) Depression: Depression Type: major depressive disorder Major depression recurrence: recurrent Active/Remission status: currently active Major depression episode severity: severe Psychotic features: without psychotic features Qualified Codes: F33.2 - Major depressive disorder, recurrent severe without psychotic features
--- NOTE | 2017-05-12 10:28 | Psych Management Progress Note ---
Psychiatry Miscellaneous Date of Service: May 12, 2017. Patient seen, MS assessed. Rates mood as 7-8/10. Encouraged cooperation with care and treatment plan as outlined by SERGEI. She notes having some cramps today but less pain overall. She slept well and is "preparation" phase with regards to her treatment.
[2017-05-12] MEDS: HYDROCODONE/ACETAMOPHEN 5/325MG TAB PO PRN ×2 (10:40→21:54)
[2017-05-12] MEDS: WARFARIN SOD 5 MG TAB PO SCH (16:00)
[2017-05-12] MEDS: MIRTAZAPINE TAB 15 MG TAB PO SCH (21:52)
[2017-05-12] MEDS: PRAZOSIN HCL 1 MG CAP PO SCH (21:52)
[2017-05-12] MEDS: LORAZEPAM 0.5 MG TAB PO PRN (21:54)
[2017-05-12] MEDS: hydrOXYzine HCL 25 MG TAB PO PRN (23:17)
[2017-05-13 06:36] VITALS: BP 90/62; PULSE 56; PULSE 71; TEMP 36.9
[2017-05-13 08:26] LABS: INR 1.6 (0.9-1.1); PROTHROMBIN TIME (PATIENT) 17.9 SECONDS (9.0-12.0)
[2017-05-13] MEDS: PANTOprazole SOD 40 MG TAB PO SCH (08:40)
[2017-05-13] MEDS: TOPIRAMATE 100 MG TAB PO SCH (08:41)
[2017-05-13] MEDS: VORTIOXETINE HBR 10 MG TAB PO SCH (08:41)
[2017-05-13] MEDS: IBUPROFEN 600 MG TAB PO PRN ×2 (08:43→16:48)
--- NOTE | 2017-05-13 10:52 | Psychiatric Progress Notes ---
Progress Note Date of Service May 13, 2017. Interval History Jemima Pierce is a 46-year-old female who currently lives in [place] with her 15 y/o daughter, has a history of depression who is admitted voluntarily for suicidal ideation following a medical admission for IV antibiotics for pelvic inflammatory disease. Chief Complaint "I feel good. ". Subjective Patient was seen & assessed interval progress reviewed with Treatment Team. The patient says her mood remains optimistic. She is looking forward to getting home to her daughter, "I miss her.". She denies any SI although acknowledges that her grief will continue, and she will deal with it. She plans to return to work this week as well. She denies any issues today. Denies side effects to meds. Review of Systems Constitutional: No fever, No chills, No sweats, No weight loss, No weakness, No fatigue, No problem reported ENT: No hearing loss, No unusual epistaxis, No nasal symptoms, No sore throat, No tinnitus, No dental problems, No trouble swallowing, No problem reported Respiratory: No cough, No sputum, No wheezing, No shortness of breath, No dyspnea on exertion, No dyspnea at rest, No hemoptysis, No problem reported Cardiovascular: No chest pain, No orthopnea, No PND, No edema, No claudication , No palpitations, No problem reported Abdomen: No pain, No nausea, No vomiting, No diarrhea, No constipation, No GI bleeding, No problem reported Musculoskeletal: No joint pain, No muscle pain, No swelling, No calf pain, No problem reported Neurologic: No memory loss, No paralysis, No weakness, No numbness/tingling, No vertigo, No balance problems, No problem reported Psychiatric: No depression symptoms, No anhedonism, No anxiety, No insomnia, No substance abuse, No problem reported Integumentary: No rash, No itch, No new/changing skin lesions, No color change , No bleeding, No problem reported Sleep Information Total Hours of Sleep: 6.00 Meal Information Percent of Breakfast Consumed: 100 Percent of Lunch Consumed: 75 Percent of Dinner Consumed: 90 Mental Status Exam During interview pt is: alert and oriented, cooperative Appearance: appropriately dressed, appropriately groomed Eye contact is: good Motor behavior is: steady gait & station, no abnormal motor movements Speech: normal in rate, rhythm & volume (angry tone at times) Affect: depressed Mood is: depressed Thought process: goal directed Thought content: reality based without delusions Suicidal thought are: denied Homicidal thoughts are: denied Hallucinations: denies auditory, denies visual Cognition: language grossly intact Intelligence estimated to be: average Insight: impaired Judgement: impaired Medication Trials (1) Past Psych Medications Effexor XR (patient now says she never took it) Prazosin - helped Trintellix - worked well per patient, stopped because she stopped going to [place] , and her PCP told her she could not prescribe Trintellix Paroxetine - patient can't recall response Citalopram - patient can't recall response Bupropion - overstimulating, really hyper, couldn't calm down, interfered with sleep Quetiapine - sedating Lamotrigine - patient can't recall response Topiramate Alprazolam Zolpidem Last Edited By: Yenni Loera on May 08, 2017 11:09 Impression Benefitting from her time in the hospital to process her losses and develop healthy coping strategies. Continues to deny SI. If progress continues, can DC tomorrow. Plan (1) Depression - For now, continue fluoxetine, but explore option of returning to Trintellix, as she thinks this is the only antidepressant that was helpful. We will start by checking with her insurance to see if it is covered, and if so, we will need to call in a prescription to an outside pharmacy and have a family member bring it in, as it is nonformulary here. - Continue home dose of lorazepam 0.5 mg every 8 hours when necessary. - Involve patient in groups and therapy on the unit, and recommend a family meeting. - Refer for outpatient therapy and psychiatric follow-up. 05/08 - Await Trintellix prior authorization. If not approved, consider increasing fluoxetine vs a trial of venlafaxine XR. - Patient was provided education about hygiene and encouraged to stay out of bed and awake during the day to promote better sleep at night. She was also informed that if she is not able to motivate herself to get out of bed and participate in treatment, that staff will lock her door during group times. Trintellix approved with $3 copay. Will call into her pharmacy and have friend or family bring it in. Then can start 10mg po daily - order in when medication arrives. 05/09 - Start Trintellix 10mg daily. - Offered to increase hydroxyzine vs trial of trazodone for sleep, which she declined. She would like to try mirtazapine, which she took once and found helpful. Will try 15mg qhs. Avoid additional controlled substances, as already on lorazepam and [place] and getting them multiple times daily. - Encourage family meeting and involvement of support system. - Referred to [facility] for psychiatry and Denisse Boyle for therapy. 05/10 - Continue Trintellix, and can increase to 15 mg daily over the next couple of days - Continue mirtazapine 15 mg daily at bedtime. Continue home dose of lorazepam when necessary. - She will need a robust safety plan, to include management of her medications, as she had suicidal thoughts to overdose and is on numerous medications. 05/11 - Increase Trintellix to 15 mg. daily 05/12 - Continue current meds and plan .19 - Continue current meds and plan (2) PTSD (post-traumatic stress disorder) 05/08 - Patient reporting nightmares and requesting to resume prazosin, which was helpful in the past. - Will need referral for therapy, as never followed up as directed by previous psychiatrist. (3) Seizure Continue home doses of topiramate, and coordinate care with outpatient neurologist, Dr. Verma. (4) Pelvic inflammatory disease Complete course of doxycycline. Will need follow up with PCP. - Per hospitalist discharge, needs Urology f/u for workup on urinary retention. 05/08 - call Dr. Turpin's office and spoke with nursing staff, requested a call back to relay results of the patient's pelvic cultures at the patient's request , and she will also need a follow-up appointment scheduled with Dr. Turpin. - Probiotic started for diarrhea at patient's request, and also ordered Lomotil when necessary. 05/09 - Patient informed of message from PCP's office that STD testing was negative. Patient wants to know why she is still on an antibiotic. Contacted Dr. Claudio for recommendations re: the antibiotic, as Dr. Dowling is off service and I have not been able to reach her PCP, Dr. Turpin. He is able to view her records on the [employer] system, and confirmed that her Chlamydia and gonorrhea tests from her [facility] works visit on 05/03/2017 were negative. He recommended stopping the doxycycline, checking a C. difficile given her diarrhea and risk factors, and consulting gynecology if she has ongoing pelvic pain. These recommendations were reviewed with the patient as well. 05/10 - MAINTENANCE SHOP CLERK consulted, and we are awaiting the recommendations. (5) Factor V Leiden Coumadin held today, but will resume tomorrow, and will check daily PT/INRs. Coordinate follow-up with PCP. 05/08 - INR 2.9 (goal 2-3). Continue warfarin and daily PT/INR. 05/09 - INR 2.9. Continue current dose 05/11 - Started menses today, and usually refuses coumadin the first 2 days of period. INR 3.4 yesterday so holding dose is appropriate. Will restart PT/INR' s tomorrow to trend. 05/12 - INR 3.1. Patient refusing coumadin again today with menses. Will monitor (6) Tobacco abuse Educate the patient about the risks of smoking and offer smoking cessation education and medication. (7) Head ache -Continue home dose of Imitrex and ondansetron for nausea or vomiting. Discharge / Aftercare Planning Primary Care Physician: Name: Rula Turpin Date of Appointment: May 18, 2017 Time of Appointment: 1125pm [facility] Notes: You will be assigned a Psychiatrist after your Intake appointment Therapist: Name: [facility] Intake with Jesenia Harrise Date of Appointment: May 21, 2017 Time of Appointment: 9:00am Neurologist: Name: Dr Garcia Visit Code E&M Code: 23930 Inventory Assets Strengths: Responsible for 15 year-old daughter, willing for treatment Risk Factors Assessment : Yes /single/: Yes Higher / Fall in social status: No Health problems: Yes Mental Health Diagnoses: Yes Previous attempt: Yes Previous psychiatric stay: No Hopelessness: Yes Smoker: Yes Protective Factors Assessment Pentecostalism beliefs: No : No Responsible for young children: Yes Employed: Yes Good rapport with provider: No Data Vital Signs Last 24 Hrs: Date Time Temp Pulse Resp B/P (MAP) Pulse Ox O2 Delivery O2 Flow Rate FiO2 05/13/17 06:36 36.9 56 16 90/62 71 Meds Administered Last 24 Hrs: Meds Administered (Past 24Hrs) Medications (Trade) Dose Ordered Sig/Cassy Route Start Time Stop Time Status Last Admin Dose Admin Vortioxetine (Trintellix) 15 mg DAILY PO 05/12/17 09:00 06/11/17 08:59 05/13/17 08:41 15 MG Lab Results Last 24 Hrs: Last 24 Hours Test 05/13/17 08:04 Prothrombin Time 17.9 SECONDS Prothromb Time International Ratio 1.6 Problem Qualifiers (1) Depression: Depression Type: major depressive disorder Major depression recurrence: recurrent Active/Remission status: currently active Major depression episode severity: severe Psychotic features: without psychotic features Qualified Codes: F33.2 - Major depressive disorder, recurrent severe without psychotic features
[2017-05-13] MEDS: WARFARIN SOD 5 MG TAB PO SCH (16:00)
[2017-05-13] MEDS: LORAZEPAM 0.5 MG TAB PO PRN (16:01)
[2017-05-13] MEDS: HYDROCODONE/ACETAMOPHEN 5/325MG TAB PO PRN (19:58)
[2017-05-13] MEDS: hydrOXYzine HCL 25 MG TAB PO PRN (21:44)
[2017-05-13] MEDS: PRAZOSIN HCL 1 MG CAP PO SCH (22:33)
[2017-05-13] MEDS: MIRTAZAPINE TAB 15 MG TAB PO SCH (22:33)
[2017-05-14 07:06] VITALS: BP_SYST 117; BP_SYST 118; BP_DIAS 70; BP_DIAS 77; PULSE 54; PULSE 77; TEMP 36.8
[2017-05-14 08:02] LABS: INR 1.2 (0.9-1.1); PROTHROMBIN TIME (PATIENT) 12.5 SECONDS (9.0-12.0)
[2017-05-14] MEDS: PANTOprazole SOD 40 MG TAB PO SCH (09:11)
[2017-05-14] MEDS: IBUPROFEN 600 MG TAB PO PRN (09:12)
[2017-05-14] MEDS: TOPIRAMATE 100 MG TAB PO SCH (09:12)
[2017-05-14] MEDS: VORTIOXETINE HBR 10 MG TAB PO SCH (09:12)
[2017-05-14] MEDS ORDERED: PRZ1 PO (10:00)
[2017-05-14] MEDS ORDERED: VORTIOXETINE HBR PO (10:00)
[2017-05-14] MEDS ORDERED: RMR15 PO (10:00)
--- NOTE | 2017-05-14 10:20 | Discharge Instructions ---
Discharge Information Report Includes Report will include the: Discharge Instructions & Summary Admission Admission Date / Time: May 07, 2017 at 14:13 Reason for Admission: Mental Depression Discharge Discharge Diagnosis / Problem: depression Condition at Discharge: Good Discharge Goals Goal(s): Decrease discomfort, Improve disease control Activity Recommendations Activity Limitations: resume your previous activity . Instructions / Follow-Up Instructions / Follow-Up . SPECIAL CARE INSTRUCTIONS: 1. Follow through with your scheduled aftercare appointments. If unable to keep an appointment, please call to reschedule. 2. Take your medication only as prescribed. Medication should not be changed or stopped without the approval of your doctor. In the event of worsening symptoms or concerns about side effects, contact your doctor immediately. 3. Utilize new healthy coping skills, anger management skills, and stress management skills learned during your hospitalization. Journal feelings and process them with a support person. Identify stressors or situations that may result in relapse, deterioration or inappropriate behaviors and develop a plan to deal with those issues. 4. If your coping skills are ineffective and you are in crisis, contact your outpatient providers for direction. If unable to reach your providers, please call the CAN HELP LINE AT or go to the closest Emergency Room. 5. Avoid alcohol and un-prescribed drugs. 6. You have been provided with the Mental Health Advance Directives Pamphlet for your review. AFTERCARE APPOINTMENTS: * Please call your insurance company prior to your scheduled appointment to confirm your aftercare providers are covered. Take your insurance information to your appointments. . Discharge / Aftercare Planning Primary Care Physician: Name: Rula Turpin Date of Appointment: May 18, 2017 Time of Appointment: 1125pm Psychiatrist: Name: .[facility] Appointment Notes: You will be assigned a Psychiatrist after your Intake appointment Therapist: Name Of Therapist: [facility] Intake with Jesenia Cobb Date of Appointment: May 21, 2017 Time of Appointment: 9:00am Neurologist: Name: Dr Garcia . Follow-Up Care Plan for Follow-Up Care: The patient is scheduled to have an intake for psychiatric care at [facility] on 05/21 Current Hospital Diet Patient's current hospital diet: Regular Diet Discharge Diet Recommended Diet: Regular Diet Procedures Procedures Performed: No Pending Studies Pending Studies at Discharge: No Medical Emergencies . Who to Call and When: Medical Emergencies: For questions or emergencies related to your hospital stay, please contact the Inpatient Behavioral Health Unit at [phone]. A surveyor helper rod is on-call 15/01 for the Behavioral Health Unit for emergencies At any time you feel your situation is an emergency, you may also call 911 immediately. . Non-Emergent Contact Non-Emergency issues call your: Psychiatrist, Therapist Past History Medical & Surgical History: (1) Factor V Leiden Advance Directives Existing Advance Directive: No Do You Have an Existing Mental: No Existing Living Will: No Existing Power of Keg Filler: No Advance Directives Info Given: To Pt/S.O. Advance Directives Reason: Declines as Mental Health Visit. Discharge Summary Admission HPI Per the Admitting provider: The patient was seen by Dr. Pinto for the initial psychiatric consultation on 03/2017. She initially presented to the emergency room the night prior to that with pelvic pain. She had been seen at an outpatient clinic after she was notified that she was exposed to gonorrhea, had purulent discharge and a pelvic infection, and was advised to go to the emergency room for IV antibiotics as she could not take the recommended antibiotic due to her clotting disorder and Coumadin. She was admitted medically. She told staff that she was having suicidal thoughts in the context of her mother dying 2 weeks prior and her daughter earlier that week. She said she wanted to go home, put on a pretty dress, and take a bottle of Ativan. She is a long history of depression which is currently managed by her PCP, and reported her mood had been getting worse in the context of multiple losses. She stated that her youngest daughter woke her up on 04/30/2017 because she found her 24-year-old sister unresponsive in the kitchen. She told staff that her oldest daughter had not been taking the loss of her grandmother well, had gone to a constitution party the night prior and stated she would be staying overnight. The patient then heard her daughter coming home around 2:30 AM, and said she seemed "off," "she was different." Her cause of is not clear, reportedly she had been drinking some alcohol, and services were held the day prior to presentation. She had been in treatment at [facility], but stopped going when they no longer took her insurance, and her PCP has been prescribing her medications for the past year. She had most recently been on fluoxetine and lorazepam, but had not filled the fluoxetine and several months, although she had recently started taking it again. On my assessment today, the patient is tearful and poorly engaged in the interview, often not responding to questions, or taking an extended period to respond. She admits that her mood has been getting worse since her mother's health declined abruptly about 5 weeks ago, and then worsened acutely after her daughter unexpectedly one week ago. She admits to sad mood, hopelessness, difficulty sleeping, anhedonia, poor focus, and suicidal thoughts. She says she has multiple plans to end her life, including overdosing on medications, but refuses to answer further questions about her suicidal thoughts. She states she was trying to get back into outpatient psychiatric treatment, but was having difficulty finding someone who accepted her insurance, and did have an intake with [facility], but it was scheduled for today. She states she is not really sure if she wants to be in the hospital, and essentially refused to answer further questions. Hospital Course (1) Depression - For now, continue fluoxetine, but explore option of returning to Trintellix, as she thinks this is the only antidepressant that was helpful. We will start by checking with her insurance to see if it is covered, and if so, we will need to call in a prescription to an outside pharmacy and have a family member bring it in, as it is nonformulary here. - Continue home dose of lorazepam 0.5 mg every 8 hours when necessary. - Involve patient in groups and therapy on the unit, and recommend a family meeting. - Refer for outpatient therapy and psychiatric follow-up. 05/08 - Await Trintellix prior authorization. If not approved, consider increasing fluoxetine vs a trial of venlafaxine XR. - Patient was provided education about hygiene and encouraged to stay out of bed and awake during the day to promote better sleep at night. She was also informed that if she is not able to motivate herself to get out of bed and participate in treatment, that staff will lock her door during group times. Trintellix approved with $3 copay. Will call into her pharmacy and have friend or family bring it in. Then can start 10mg po daily - order in when medication arrives. 05/09 - Start Trintellix 10mg daily. - Offered to increase hydroxyzine vs trial of trazodone for sleep, which she declined. She would like to try mirtazapine, which she took once and found helpful. Will try 15mg qhs. Avoid additional controlled substances, as already on lorazepam and [place] and getting them multiple times daily. - Encourage family meeting and involvement of support system. - Referred to [facility] for psychiatry and Denisse Boyle for therapy. 05/10 - Continue Trintellix, and can increase to 15 mg daily over the next couple of days - Continue mirtazapine 15 mg daily at bedtime. Continue home dose of lorazepam when necessary. - She will need a robust safety plan, to include management of her medications, as she had suicidal thoughts to overdose and is on numerous medications. 05/11 - Increase Trintellix to 15 mg. daily 05/12 - Continue current meds and plan .19 - Continue current meds and plan (2) PTSD (post-traumatic stress disorder) 05/08 - Patient reporting nightmares and requesting to resume prazosin, which was helpful in the past. - Will need referral for therapy, as never followed up as directed by previous psychiatrist. (3) Seizure Continue home doses of topiramate, and coordinate care with outpatient neurologist, Dr. Verma. (4) Pelvic inflammatory disease Complete course of doxycycline. Will need follow up with PCP. - Per hospitalist discharge, needs Urology f/u for workup on urinary retention. 05/08 - call Dr. Turpin's office and spoke with nursing staff, requested a call back to relay results of the patient's pelvic cultures at the patient's request , and she will also need a follow-up appointment scheduled with Dr. Turpin. - Probiotic started for diarrhea at patient's request, and also ordered Lomotil when necessary. 05/09 - Patient informed of message from PCP's office that STD testing was negative. Patient wants to know why she is still on an antibiotic. Contacted Dr. Claudio for recommendations re: the antibiotic, as Dr. Dowling is off service and I have not been able to reach her PCP, Dr. Turpin. He is able to view her records on the [facility] system, and confirmed that her Chlamydia and gonorrhea tests from her [facility] visit on 05/03/2017 were negative. He recommended stopping the doxycycline, checking a C. difficile given her diarrhea and risk factors, and consulting gynecology if she has ongoing pelvic pain. These recommendations were reviewed with the patient as well. 05/10 - [employer] consulted, and we are awaiting the recommendations. (5) Factor V Leiden Coumadin held today, but will resume tomorrow, and will check daily PT/INRs. Coordinate follow-up with PCP. 05/08 - INR 2.9 (goal 2-3). Continue warfarin and daily PT/INR. 05/09 - INR 2.9. Continue current dose 05/11 - Started menses today, and usually refuses coumadin the first 2 days of period. INR 3.4 yesterday so holding dose is appropriate. Will restart PT/INR' s tomorrow to trend. 05/12 - INR 3.1. Patient refusing coumadin again today with menses. Will monitor (6) Tobacco abuse Educate the patient about the risks of smoking and offer smoking cessation education and medication. (7) Head ache -Continue home dose of Imitrex and ondansetron for nausea or vomiting. Risk Factors Assessment : Yes /single/: Yes Higher / Fall in social status: No Health problems: Yes Mental Health Diagnoses: Yes Previous attempt: Yes Previous psychiatric stay: No Hopelessness: Yes Smoker: Yes Protective Factors Assessment Sikhism beliefs: No : No Responsible for young children: Yes Employed: Yes Good rapport with provider: No Day of Discharge Assessment COURSE OF HOSPITALIZATION: The patient was initially admitted to the medical floor for treatment of what was thought to be a pelvic inflammatory disease, with IV antibiotics. She was transferred to our unit voluntarily for treatment of depression with suicidal ideation. The patient has suffered 2 significant losses in the last few weeks including the of her mother and then the unexpected of her daughter. Mother's was expected however daughters was not and her is still under investigation to determine whether it was accidental or intentional overdose. The patient has been appropriately depressed, grieving the loss of both. She was not currently in treatment for her depression although has been in treatment in the past. She was initially angry, not necessarily wanting to be on the unit, but after adjusting to the structure and support of the unit, was a good group and individual therapy participant. She processed extensively the loss of her family members and progressed throughout her stay to the point of having no suicidal ideation. She has a second daughter, Abril, who is 15 and she cited her as a strong protective factor, wanting to be a good mother to her moving forward. Her [id number]-mi-law who has remains supportive after the divorce, has also been very supportive, and has been caring for Abril while the patient has been in the hospital. She ceased to have any further suicidal ideation. She did have a consult with [facility] physician group [employer] for follow-up of complaints of vaginal discharge. She was placed on a course of antibiotics which she completed and will have follow-up with them in the outpatient office. Both chlamydia and gonorrhea were negative from outpatient testing. Sleep had been a problem for the patient, she was started on prazosin 1 mg at bedtime which helped to control nightmares. She was started back on track in [employer] which she had been on in the past, getting to 15 mg daily which was tolerated without side effect. She was also started on Remeron 15 mg which was helpful for both mood and sleep. She has a factor V Leiden deficiency, on chronic anticoagulation. This was continued. INRs were monitored and were variable. The patient did start her menses during her stay and she usually does not take her Coumadin for 2 days after starting her period. INR today is down to 1.2 after having refused several doses. It is recommended she resume and continue to monitor her coagulation status with her outpatient provider. DAY OF DISCHARGE ASSESSMENT: Today the patient is requesting discharge. She feels that she is significantly improved over admission, is forward thinking, and looking forward to getting home to her daughter. She continues to deny any suicidal ideation. Today she is casually and appropriately dressed and groomed. Eye contact is good. Gait and station are within normal limits. Affect is smiling. Speech is of normal rate volume and tone. Thoughts are organized, goal-directed, and without evidence of thought disorder. Recent and remote memory are intact per conversation. Intelligence is estimated to be average. Insight and judgment are improved over admission. Laboratory Test 05/08/17 07:19 05/13/17 08:04 05/14/17 07:38 White Blood Count 6.76 Red Blood Count 4.22 Hemoglobin 14.2 Hematocrit 41.0 Mean Corpuscular Volume 97.2 Mean Corpuscular Hemoglobin 33.6 Mean Corpuscular Hemoglobin Concent 34.6 RDW Standard Deviation 45.4 RDW Coefficient of Variation 12.8 Platelet Count 127 Mean Platelet Volume 10.5 Prothrombin Time 17.9 12.5 Prothrombin Time INR 1.6 1.2 Total Time Total Time Spent (min): Greater than 30 minutes Total Time Included: examination of the patient, discharge planning, medication reconciliation, communication with other providers Tobacco Cessation at Discharge Smoking Status: Never Smoker FDA approved Prescription: non-smoker Problem Qualifiers (1) Depression: Depression Type: major depressive disorder Major depression recurrence: recurrent Active/Remission status: currently active Major depression episode severity: severe Psychotic features: without psychotic features Qualified Codes: F33.2 - Major depressive disorder, recurrent severe without psychotic features
== END 2017-05-14 10:35 | disposition home or self-care (01) | DRG 885 ==
LOC: C.MHU 14:13
PROVIDERS: ADMIT Psychiatry & Neurology Psychiatry; ATTEND Psychiatry & Neurology Psychiatry
DX: F33.2 Major depressive disorder, recurrent severe without psychotic features (principal); R45.851 Suicidal ideations; D68.51 Activated protein C resistance; F43.10 Post-traumatic stress disorder, unspecified; N73.9 Female pelvic inflammatory disease, unspecified; G40.909 Epilepsy, unspecified, not intractable, without status epilepticus; R51 Headache; F17.210 Nicotine dependence, cigarettes, uncomplicated; Z79.01 Long term (current) use of anticoagulants; Z79.899 Other long term (current) drug therapy; Z81.8 Family history of other mental and behavioral disorders; Z88.6 Allergy status to analgesic agent; J45.909 Unspecified asthma, uncomplicated

== ENCOUNTER 2017-06-19 09:54 | Emergency (ER) | payer OTHER ==
[~2017-06-19] VITALS: Ht 157.5 cm; Wt 67.5 kg
[~2017-06-19 09:54] MED LIST changes: -CLC100 PO; -DXY100 PO; +PRZ1 PO; +RMR15 PO; +VORTIOXETINE HBR PO
[2017-06-19 10:01] VITALS: TEMP 36.8; Ht 157.5 cm; Wt 67.5 kg
[2017-06-19] MEDS ORDERED: HYDROmorphone INJ 1 MG/ML SYR IV STA (10:20)
[2017-06-19] MEDS ORDERED: ONDANSETRON INJ 2 MG/ML 2 ML VIAL IV STA (10:20)
[2017-06-19] MEDS ORDERED: SODIUM CHLORIDE 0.9% 1000ML 1,000 ML IV STA (10:20)
[2017-06-19 10:26] LABS: URINE APPEARANCE CLEAR (CLEAR); URINE BILIRUBIN NEG (NEG); URINE COLOR YELLOW; URINE EPITHELIAL CELL AUTO >30 /lpf (0-5); URINE NITRITE NEG (NEG); URINE PH 5.5 (4.5-7.5); URINE SPECIFIC GRAVITY 1.022 (1.000-1.030); UROBILINOGEN NEG (NEG); ZZUR CULT IF INDIC CLEAN CATCH YES
[2017-06-19 10:27] LABS: MANUAL MICROSCOPIC REQUIRED? NO; REVIEW REQ? NO
[2017-06-19] MEDS ORDERED: VORT1TAB3 PO (10:31)
[2017-06-19] MEDS ORDERED: ALPR-411 PO (10:31)
--- NOTE | 2017-06-19 10:46 | DIAGNOSTIC IMAGING REPORT ---
CT SCAN OF THE ABDOMEN AND PELVIS WITHOUT IV CONTRAST CLINICAL HISTORY: Left flank pain. COMPARISON STUDY: Abdominal CT dated 05/04/2017 and 03/20/2014. TECHNIQUE: CT scan of the abdomen and pelvis is performed from the lung bases to the proximal femora. Images are reviewed in the axial, sagittal, and coronal planes. IV contrast was not administered for this examination. A dose lowering technique was utilized adhering to the principles of ALARA. CT DOSE: 596.18 mGy.cm FINDINGS: Lung bases: The heart is normal in size and without pericardial effusion. A 4 mm pleural-based nodule in the right lower lobe along the major fissure seen on image #9 and a 3 mm left lower lobe nodule on image #23 are unchanged from 2014 and of doubtful significance. The lung bases are clear. Liver: The unenhanced liver is normal in size, contour, and attenuation. There is no intrahepatic biliary ductal dilatation. Gallbladder: Surgically absent noting clips in the gallbladder fossa. Spleen: Normal in size and attenuation. Pancreas: Unremarkable. Adrenal glands: Unremarkable. Kidneys: The unenhanced kidneys are normal in size. There is a 5 mm calculus versus 2 adjacent calculi in the distal left ureter just above the vesicoureteral junction seen on image #371. This causes mild left hydroureter. There is no hydronephrosis. There is an additional 5 mm nonobstructing calculus in the upper pole of left kidney. No right renal calculi are identified. There is no evidence of contour deforming renal mass lesion. Abdominal vasculature: The abdominal aorta is normal in course and caliber. Bowel: The small bowel and colon are normal in course and caliber. The appendix is well-visualized and normal. Peritoneum: There is no intraperitoneal free air or abdominal ascites. There is a fat-containing umbilical hernia. Lymphadenopathy: None. Pelvic viscera: The bladder, uterus, and adnexa are normal as imaged. Skeletal structures: No lytic or blastic lesions are seen. IMPRESSION: 1. There is a 5 mm calculus versus 2 adjacent calculi seen in the distal left ureter just above the vesicoureteral junction. This causes only minimal left-sided hydroureter. No hydronephrosis is seen. 2. There is an additional nonobstructing left renal calculus. 3. No right renal calculi are identified. Electronically signed by: Marcelino Causey M.D. 06/19/2017 10:45 AM Dictated Date/Time: 06/19/2017 10:38 AM
[2017-06-19 10:53] LABS: HEMATOCRIT 47.7 % (37-47); MEAN CELL VOLUME 93.7 fL (80-100); MEAN CORPUSCULAR HEMOGLOBIN 33.6 pg (25-34); MEAN CORPUSCULAR HGB CONC 35.8 g/dl (32-36); MEAN PLATELET VOLUME 10.5 fL (7.4-10.4); PLATELET COUNT 201 K/uL (130-400); RED BLOOD COUNT 5.09 M/uL (4.2-5.4); WHITE BLOOD COUNT 6.92 K/uL (4.8-10.8)
[2017-06-19 11:17] LABS: ALT/SGPT 45 U/L (12-78); BLOOD UREA NITROGEN 18 mg/dl (7-18); BUN/CREATININE RATIO 18.8 (10-20); CARBON DIOXIDE 19 mmol/L (21-32); CHLORIDE 110 mmol/L (98-107); CREATININE 0.96 mg/dl (0.60-1.20); GLUCOSE 99 mg/dl (70-99); POTASSIUM 3.4 mmol/L (3.5-5.1); SODIUM 139 mmol/L (136-145)
[2017-06-19 11:21] LABS: ALKALINE PHOSPHATASE 64 U/L (45-117); AST/SGOT 14 U/L (15-37)
[2017-06-19] MEDS ORDERED: FAMOTIDINE 20MG/5ML IV PUSH IV STA (11:42)
[2017-06-19] MEDS ORDERED: GI COCKTAIL PO STA (12:01)
[2017-06-19] MEDS ORDERED: PROMETHAZINE HCL INJ 25 MG in SODIUM CHLORIDE 0.9% 50ML 50 ML IV STA (12:01)
[2017-06-19] MEDS ORDERED: HYDROmorphone INJ 0.5 MG/0.5 ML SYR IV STA (12:01)
[2017-06-19] MEDS ORDERED: ALUMINUM/MAGNESIUM SUSP 30 ML UDC ONE (12:12)
[2017-06-19] MEDS ORDERED: LIDOCAINE HCL 2% VISC SOLN 20 ML UDC ONE (12:12)
[2017-06-19] MEDS ORDERED: PROM25TA9 PO (13:59)
[2017-06-19] MEDS ORDERED: TAMS0.4C38 PO (13:59)
[2017-06-19] MEDS ORDERED: OXYC1TAB3 PO (13:59)
[2017-06-19 14:05] VITALS: BP 97/67; PULSE 54; O2SAT 96
--- NOTE | 2017-06-19 15:07 | EMERGENCY ROOM VISIT NOTE ---
History First contact with patient: 10:10 Chief Complaint: KIDNEY STONE Stated Complaint: KIDNEY STONE History of Present Illness The patient is a 46 year old female who presents to the Emergency Room with complaints of severe left flank and pelvic pain that started 36-48 hours ago, and has progressively worsened. The patient has a history of kidney stones, and reports that this feels the same. She has been treated in the past by Dr. Thompson. She is not happy with the care she received because she reports that she was treated with Flomax for several weeks before any intervention was performed. Patient denies any preceding urinary symptoms or hematuria. She denies any significant nausea, vomiting, fever or chills. She rates her discomfort a 10 out of 10 on my exam. Review of Systems HEENT: Denies dizziness, visual problems, hearing loss, tinnitus. Denies difficulty swallowing or oral lesions. PULMONARY: Denies cough, shortness of breath, sputum production or hemoptysis. CARDIOVASCULAR: Denies chest pain, palpitations, dyspnea on exertion, orthopnea or peripheral edema. GASTROINTESTINAL: Denies diarrhea, constipation, significant nausea or vomiting. GENITOURINARY: See history of present illness, otherwise denies any recent dysuria, frequency, urgency or nocturia. NEUROLOGIC: Denies history of epilepsy, CVA, TIA or chronic headaches. MUSCULOSKELETAL: Denies history of joint tenderness/swelling. SKIN: Denies rashes or lesions. PSYCHIATRIC: Denies history of depression or mental illness. ENDOCRINE: Denies history of diabetes or thyroid disorders. 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 (Current) Use Of 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 (15) Multiple pulmonary emboli (16) Past Psych Medications (17) Pelvic pain (18) PTSD (post-traumatic stress disorder) (19) Right leg pain (20) Seizure (21) Suicidal ideation (22) Tobacco abuse (23) Ulcerative colitis (24) Urgency of urination Surgical Problems: (1) H/O tubal ligation (2) History of cholecystectomy (3) Hx of tonsillectomy (4) Tubal Ligation Status Family History FH: cancer Gallbladder disease Kidney disease Kidney stones Social History Smoking Status: Current Every Day Smoker Alcohol Use: none Drug Use: none Marital Status: Housing Status: lives with family Occupation Status: employed Current/Historical Medications Scheduled Alprazolam (Xanax), 0.5 MG PO HS Omeprazole (Prilosec), 40 MG PO DAILY Prazosin HCl (Prazosin HCl), 1 MG PO HS Tamsulosin Hcl (Flomax), 0.4 MG PO DAILY Topiramate (Topamax), 400 MG PO QAM Vortioxetine HBr (Trintellix), 20 MG PO DAILY Warfarin Sodium (Coumadin), 5 MG PO DAILY Scheduled PRN Albuterol Hfa (Ventolin Hfa), 2 PUFFS INH QID PRN for SOB/Wheezing Hydrocodone/Acetaminophen 5MG/325MG ([place] 5MG/325MG), 1 TABLET PO Q6 PRN for Pain Ibuprofen (Motrin), 600 MG PO TID PRN for Pain Lorazepam (Lorazepam), 0.5 MG PO Q8 PRN for Anxiety/Insomnia Ondansetron Hcl (Zofran), 4 MG PO Q6 PRN for Nausea Oxycodone Ir (Roxicodone Ir), 1-2 TAB PO Q4H PRN for Pain Promethazine Hcl (Phenergan), 25 MG PO Q6H PRN for Nausea Sumatriptan Succinate (Sumatriptan Succinate), 50 MG PO UD PRN for Migraine Physical Exam Vital Signs Date Time Temp Pulse Resp B/P (MAP) Pulse Ox O2 Delivery O2 Flow Rate FiO2 06/19/17 14:05 54 16 97/67 96 06/19/17 12:20 58 16 122/86 98 Room Air 06/19/17 11:15 76 18 102/80 96 Room Air 06/19/17 10:01 36.8 84 18 123/82 98 Room Air Physical Exam CONSTITUTIONAL: Healthy and well nourished. Alert and oriented X 3 with positive affect. Patient appears in severe discomfort from pain. HEENT: Normocephalic, atraumatic. Pupils equal, round and reactive. Ears and nares are clear. OROPHARYNX: Mucous membranes are moist. NECK: Full active range of motion without discomfort. RESPIRATORY: Clear to auscultation bilaterally with no wheezing, crackles, rhonchi or stridor. CARDIOVASCULAR: Regular rate and rhythm with no murmurs, rubs or gallops. GASTROINTESTINAL: Bowel sounds present in all quadrants. Patient has no significant abdominal tenderness to palpation. Negative CVA tenderness. MUSCULOSKELETAL: Full range of motion of all joints without discomfort. INTEGUMENTARY: No rash or other significant dermatologic conditions noted. Patient has good skin turgor. NEUROLOGIC: No focal neurologic deficits noted. Medical Decision & Procedures ER Provider Diagnostic Interpretation: Noncontrast CT of the abdomen and pelvis shows a left UVJ 5 mm stone versus to subadjacent stones with minimal hydroureteronephrosis. Radiologist report is as follows: CT SCAN OF THE ABDOMEN AND PELVIS WITHOUT IV CONTRAST CLINICAL HISTORY: Left flank pain. COMPARISON STUDY: Abdominal CT dated 05/04/2017 and 03/20/2014. TECHNIQUE: CT scan of the abdomen and pelvis is performed from the lung bases to the proximal femora. Images are reviewed in the axial, sagittal, and coronal planes. IV contrast was not administered for this examination. A dose lowering technique was utilized adhering to the principles of ALARA. CT DOSE: 596.18 mGy.cm FINDINGS: Lung bases: The heart is normal in size and without pericardial effusion. A 4 mm pleural-based nodule in the right lower lobe along the major fissure seen on image #9 and a 3 mm left lower lobe nodule on image #23 are unchanged from 2014 and of doubtful significance. The lung bases are clear. Liver: The unenhanced liver is normal in size, contour, and attenuation. There is no intrahepatic biliary ductal dilatation. Gallbladder: Surgically absent noting clips in the gallbladder fossa. Spleen: Normal in size and attenuation. Pancreas: Unremarkable. Adrenal glands: Unremarkable. Kidneys: The unenhanced kidneys are normal in size. There is a 5 mm calculus versus 2 adjacent calculi in the distal left ureter just above the vesicoureteral junction seen on image #371. This causes mild left hydroureter. There is no hydronephrosis. There is an additional 5 mm nonobstructing calculus in the upper pole of left kidney. No right renal calculi are identified. There is no evidence of contour deforming renal mass lesion. Abdominal vasculature: The abdominal aorta is normal in course and caliber. Bowel: The small bowel and colon are normal in course and caliber. The appendix is well-visualized and normal. Peritoneum: There is no intraperitoneal free air or abdominal ascites. There is a fat-containing umbilical hernia. Lymphadenopathy: None. Pelvic viscera: The bladder, uterus, and adnexa are normal as imaged. Skeletal structures: No lytic or blastic lesions are seen. IMPRESSION: 1. There is a 5 mm calculus versus 2 adjacent calculi seen in the distal left ureter just above the vesicoureteral junction. This causes only minimal left-sided hydroureter. No hydronephrosis is seen. 2. There is an additional nonobstructing left renal calculus. 3. No right renal calculi are identified. Laboratory Results 06/19/17 10:15 06/19/17 10:15 Test 06/19/17 10:10 06/19/17 10:15 Urine Color YELLOW Urine Appearance CLEAR (CLEAR) Urine pH 5.5 (4.5-7.5) Urine Specific [place] 1.022 (1.000-1.030) Urine Protein NEG (NEG) Urine Glucose (UA) NEG (NEG) Urine Ketones NEG (NEG) Urine Occult Blood NEG (NEG) Urine Nitrite NEG (NEG) Urine Bilirubin NEG (NEG) Urine Urobilinogen NEG (NEG) Urine Leukocyte Esterase NEG (NEG) Urine WBC (Auto) 1-5 /hpf (0-5) Urine RBC (Auto) 0-4 /hpf (0-4) Urine Hyaline Casts (Auto) 1-5 /lpf (0-5) Urine Epithelial Cells (Auto) >30 /lpf (0-5) Urine Bacteria (Auto) 1+ (NEG) Red Blood Count 5.09 M/uL (4.2-5.4) Mean Corpuscular Volume 93.7 fL (80-100) Mean Corpuscular Hemoglobin 33.6 pg (25-34) Mean Corpuscular Hemoglobin Concent 35.8 g/dl (32-36) RDW Standard Deviation 42.8 fL (36.4-46.3) RDW Coefficient of Variation 12.4 % (11.5-14.5) Mean Platelet Volume 10.5 fL (7.4-10.4) Anion Gap 10.0 mmol/L (3-11) Est Creatinine Clear Calc Drug Dose 67.4 ml/min Estimated GFR () 83.4 Estimated GFR (Non- 71.9 BUN/Creatinine Ratio 18.8 (10-20) Calcium Level 9.0 mg/dl (8.5-10.1) Total Bilirubin 0.3 mg/dl (0.2-1) Direct Bilirubin < 0.1 mg/dl (0-0.2) Aspartate Amino Transf (AST/SGOT) 14 U/L (15-37) Alanine Aminotransferase (ALT/SGPT) 45 U/L (12-78) Alkaline Phosphatase 64 U/L (45-117) Total Protein 7.9 gm/dl (6.4-8.2) Albumin 3.8 gm/dl (3.4-5.0) Lipase 316 U/L (73-393) The above labs were reviewed. Creatinine is normal. White count, LFTs and lipase are normal. Urinalysis does not show any evidence for infection. Medications Administered Medications (Trade) Dose Ordered Sig/Cassy Route Start Time Stop Time Status Last Admin Dose Admin Sodium Chloride 1,000 ml @ 999 mls/hr Q1H1M STAT IV 06/19/17 10:20 06/19/17 11:20 DC 06/19/17 11:14 999 MLS/HR Hydromorphone HCl (Dilaudid Inj) 1 mg NOW STAT IV 06/19/17 10:20 06/19/17 10:23 DC 06/19/17 11:14 1 MG Ondansetron HCl (Zofran Inj) 4 mg NOW STAT IV 06/19/17 10:20 06/19/17 10:23 DC 06/19/17 11:14 4 MG Famotidine (Pepcid 20mg Iv Push) 20 mg ONE STAT IV 06/19/17 11:42 06/19/17 11:43 DC 06/19/17 11:47 20 MG Hydromorphone HCl (Dilaudid Inj) 0.5 mg NOW STAT IV 06/19/17 12:01 06/19/17 12:02 DC 06/19/17 12:19 0.5 MG Promethazine HCl 25 mg/Sodium Chloride 51 ml @ 204 mls/hr NOW STAT IV 06/19/17 12:01 06/19/17 12:15 DC 06/19/17 12:20 204 MLS/HR Lidocaine HCl (Viscous Lidocaine 2% Soln) 20 ml STK-MED ONCE .ROUTE 06/19/17 12:12 06/19/17 12:13 DC 06/19/17 12:20 20 ML Al Hydroxide/Mg Hydroxide (Maalox Susp) 30 ml STK-MED ONCE .ROUTE 06/19/17 12:12 06/19/17 12:13 DC 06/19/17 12:20 30 ML Procedure 1. IV hydration: The patient was administered a normal saline 1 L bolus 2. IV medications: Dilaudid 1 mg and Zofran 4 mg IVP. The patient reported persistent pain, and was therefore treated with additional Dilaudid 0.5 mg and Phenergan 25 mg IVP. The patient was also administered IV Pepcid with complaint of dyspepsia. 3. Oral medications: A GI cocktail was administered for dyspepsia. ED Course Patient history and physical exam were performed. Nurse's notes were reviewed. Vital signs were reviewed and were normal. IV access was established, and labs were drawn. The patient was hydrated with a liter normal saline, and was administered IV analgesic/antiemetics as discussed in the previous Procedure section. Review of labs does not show any leukocytosis, kidney injury or signs of urinary tract infection. Noncontrast CT of the abdomen and pelvis shows either a solitary 5 mm or possible double calculus at the left UVJ junction. The patient was focally reassessed, reporting that she always skips nauseated with pain medications. She also reports that the initial dose of Dilaudid was not helping much with pain. The patient was switched to Phenergan for nausea, and was administered an additional Dilaudid 0.5 mg IVP. The patient then was complaining of some reflux/heartburn symptoms, and requested a GI cocktail. This was administered, along with Pepcid 20 mg IV infusion. The patient eventually reported adequate pain, nausea and dyspepsia release. The patient again reports that she wished she could see another urologist besides Dr. Thompson. I explained to the patient that with her insurance, she would be best served to stay with [facility] urology. If she wishes to contact another urology office, she may do so. The patient was provided a prescription and for Flomax, Phenergan and OxyIR 5 mg. He was instructed to return to the emergency Department for uncontrollable pain, vomiting or developing fever. After the patient's discharge paperwork was completed, and prescriptions electronically sent to her pharmacy, I received a phone call from the patient's pharmacist reporting that the patient just had a prescription filled today for hydrocodone 5/325. I asked the pharmacist to void my prescription, and please advise the patient that she will need to seek any further prescription pain management from her family doctor or urologist. Review of the [place] prescription Drug Monitoring Program did not show any prescription history of filling this medication today. It is noted that the patient is on chronic pain management prescription management by Dr. Turpin. The patient did not advise me that she got this prescription filled today, therefore I question the possibility of narcotic seeking behavior. I do feel the patient needs to be added to our watch list for future visit patterns. Concerning the patient does have reason to have pain, and should be treated appropriately while in the emergency department. Medical Decision See previous section, the patient has a known history of kidney stones, and CT today shows either a solitary 5 mm stone, or possible double stone at the UVJ. The patient is afebrile, has no leukocytosis or urinalysis findings to suggest infection. She has no significant obstructive findings on CT. Reports that these are also not suggestive of pancreatitis, cholecystitis or hepatitis. Clinical exam is not consistent with appendicitis, pyelonephritis or surgical abdomen. I also do not suspect cardiopulmonary referred pain. The patient did experience some dyspepsia with IV Dilaudid administration, however this is well controlled with a GI cocktail and IV Pepcid. [place] Drug Monitoring Program Search Results: patient reviewed within database, see additional documentation Medication Reconcilliation Current Medication List: was personally reviewed by me Blood Pressure Screening Patient's blood pressure: Normal blood pressure Impression Primary Impression: Left ureteral calculus Departure Information Prescriptions Promethazine Hcl (Phenergan) 25 Mg Tab 25 MG PO Q6H Y for Nausea, #20 TAB Prov: Thierno Mederos PA 06/19/17 Oxycodone Ir (Roxicodone Ir) 5 Mg Tab 1-2 TAB PO Q4H Y for Pain, #15 TAB For Initial Treatment Prov: Thierno Mederos PA 06/19/17 Tamsulosin Hcl (FLOMAX) 0.4 Mg Cap 0.4 MG PO DAILY for 7 Days, #7 CAP Prov: Thierno Mederos PA 06/19/17 Referrals No Doctor, Assigned (PCP) Patient Instructions [facility]
[2017-06-20] MEDS ORDERED: IBUP-1450 PO (04:50)
[2017-06-20] MEDS ORDERED: ONDA4TAB46 PO (04:51)
[2017-06-20] MEDS ORDERED: PRAZ1CAP10 PO (04:52)
[2017-06-20] MEDS ORDERED: PROM25TA9 PO (04:53)
[2017-06-20] MEDS ORDERED: TAMS0.4C38 PO (04:54)
[2017-06-20] MEDS ORDERED: LORA-741 PO (09:00)
[2017-06-28] MEDS ORDERED: CLC100 PO (14:42)
[2017-06-28] MEDS ORDERED: PHEN-1043 PO (14:42)
[2017-06-28] MEDS ORDERED: AMPI500C9 PO (14:42)
[2017-06-28] MEDS ORDERED: PRT40 PO (14:42)
[2017-06-28] MEDS ORDERED: FLM4 PO (14:42)
[2017-06-28] MEDS ORDERED: LCTX PO (14:42)
[2017-06-28] MEDS ORDERED: CIPR-255 PO (14:59)
== END 2017-06-19 14:10 | disposition home or self-care (01) ==
LOC: C.EDB 09:56 → C.EDC 14:10
DX: N20.1 Calculus of ureter (principal); D68.51 Activated protein C resistance; G40.909 Epilepsy, unspecified, not intractable, without status epilepticus; J45.909 Unspecified asthma, uncomplicated; F17.200 Nicotine dependence, unspecified, uncomplicated; Z87.442 Personal history of urinary calculi; Z87.19 Personal history of other diseases of the digestive system; Z86.718 Personal history of other venous thrombosis and embolism; Z98.51 Tubal ligation status; Z90.49 Acquired absence of other specified parts of digestive tract; Z98.890 Other specified postprocedural states; Z79.01 Long term (current) use of anticoagulants; Z79.899 Other long term (current) drug therapy; Z80.9 Family history of malignant neoplasm, unspecified; Z83.79 Family history of other diseases of the digestive system; Z84.1 Family history of disorders of kidney and ureter

== ENCOUNTER 2017-06-20 04:23 | Inpatient (IN) | payer OTHER ==
[2017-06-20] VITALS (9 sets, daily range): BP systolic 102–121; BP diastolic 67–73; PULSE 59–74; TEMP 36.4–36.9; O2SAT 94–97; Ht 157.5 cm; Wt 73.9 kg
[~2017-06-20] VITALS: Ht 157.5 cm; Wt 73.9 kg
[~2017-06-20 04:23] MED LIST changes: +ALPR-411 PO; +OXYC1TAB3 PO; +PROM25TA9 PO; -RMR15 PO; +TAMS0.4C38 PO; +VORT1TAB3 PO; -VORTIOXETINE HBR PO
[2017-06-20] MEDS ORDERED: SODIUM CHLORIDE 0.9% 1000ML 1,000 ML IV STA (04:42)
[2017-06-20] MEDS ORDERED: HYDROmorphone INJ 1 MG/ML SYR IV STA ×2 (04:42→05:57)
[2017-06-20] MEDS ORDERED: IBUP-1450 PO (04:50)
[2017-06-20] MEDS ORDERED: ONDA4TAB46 PO (04:51)
[2017-06-20] MEDS ORDERED: PRAZ1CAP10 PO (04:52)
[2017-06-20] MEDS ORDERED: PROM25TA9 PO (04:53)
--- NOTE | 2017-06-20 04:53 | EMERGENCY ROOM VISIT NOTE ---
History First contact with patient: 04:28 Chief Complaint: UNABLE TO VOID Stated Complaint: KIDNEY STONES,CANNOT URINATIE Nursing Triage Summary: Left flank pain since Sunday evening. PMH kidney stnes. Pt here yestrday and stone was confirmed by CT scan. History of Present Illness The patient is a 46 year old female who presents to the Emergency Room with complaints of a kidney stone. The patient states that she was seen here yesterday morning due to left flank pain 2 days. She was diagnosed with a kidney stone and discharged. She states that she took her Phenergan and hydrocodone at home as prescribed, but this did not work for her. The patient does admit that she takes hydrocodone for chronic pain and so narcotics do not always work for her for pain. She does have a history of kidney stones and has had to have surgery in the past to have them removed. She sees Dr. Thompson from urology. She did call yesterday after being discharged, but Dr. Thompson was not in the office. She states she feels like it is difficult for her to urinate. She rates her current discomfort a 9/10. She denies any vomiting since taking the Phenergan. She denies fevers/chills or changes in bowel movements. Review of Systems A complete 10 point review of systems was reviewed with the patient with pertinent positives and negatives as per history of present illness. All else were negative. 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 (15) Multiple pulmonary emboli (16) Past Psych Medications (17) Pelvic pain (18) PTSD (post-traumatic stress disorder) (19) Right leg pain (20) Seizure (21) Suicidal ideation (22) Tobacco abuse (23) Ulcerative colitis (24) Urgency of urination Surgical Problems: (1) H/O tubal ligation (2) History of cholecystectomy (3) Hx of tonsillectomy (4) Tubal Ligation Status Family History FH: cancer Gallbladder disease Kidney disease Kidney stones Social History Smoking Status: Current Every Day Smoker Alcohol Use: none Drug Use: none Marital Status: Housing Status: lives with family Occupation Status: employed Current/Historical Medications Scheduled Alprazolam (Xanax), 0.5 MG PO HS Omeprazole (Prilosec), 40 MG PO DAILY Prazosin Hcl (Prazosin), 1 MG PO HS Tamsulosin Hcl (Flomax), 0.4 MG PO DAILY Topiramate (Topamax), 400 MG PO QAM Vortioxetine HBr (Trintellix), 20 MG PO DAILY Warfarin Sodium (Coumadin), 5 MG PO DAILY Scheduled PRN Albuterol Hfa (Ventolin Hfa), 2 PUFFS INH QID PRN for SOB/Wheezing Hydrocodone/Acetaminophen 5MG/325MG ([place] 5MG/325MG), 1 TABLET PO Q6 PRN for Pain Ibuprofen (Motrin), 600 MG PO DIRECTED PRN for Pain Lorazepam (Lorazepam), 0.5 MG PO Q8 PRN for Anxiety/Insomnia Ondansetron Hcl (Zofran), 4 MG PO Q6 PRN for Nausea Promethazine Hcl (Phenergan), 25 MG PO Q6H PRN for Nausea Sumatriptan Succinate (Sumatriptan Succinate), 50 MG PO UD PRN for Migraine Physical Exam Vital Signs Date Time Temp Pulse Resp B/P (MAP) Pulse Ox O2 Delivery O2 Flow Rate FiO2 06/20/17 06:03 71 22 108/64 98 Room Air 06/20/17 04:25 36.4 110 20 137/65 97 Room Air Physical Exam VITALS: Vitals are noted on the nurse's note and reviewed by myself. Vital signs stable. GENERAL: This is a 46-year-old female, sitting up in bed, uncomfortable appearing. HEART: Regular rate and rhythm without murmurs gallops or rubs. LUNGS: Clear to auscultation bilaterally without wheezes, rales or rhonchi. ABDOMEN: Positive bowel sounds x 4. Soft, nontender to palpation. There is left CVA tenderness. NEURO: Patient was alert and oriented to person place and time. Medical Decision & Procedures Laboratory Results 06/20/17 05:10 Red Blood Count 4.44, Mean Corpuscular Volume 94.8, Mean Corpuscular Hemoglobin 33.8, Mean Corpuscular Hemoglobin Concent 35.6, Mean Platelet Volume 10.2, Neutrophils (%) (Auto) 48.9, Lymphocytes (%) (Auto) 39.2, Monocytes (%) (Auto) 7.5, Eosinophils (%) (Auto) 3.4, Basophils (%) (Auto) 0.6, Neutrophils # (Auto) 2.28, Lymphocytes # (Auto) 1.83, Monocytes # (Auto) 0.35, Eosinophils # (Auto) 0.16, Basophils # (Auto) 0.03 06/20/17 05:10 Test 06/20/17 05:10 White Blood Count 4.67 K/uL (4.8-10.8) Red Blood Count 4.44 M/uL (4.2-5.4) Hemoglobin 15.0 g/dL (12.0-16.0) Hematocrit 42.1 % (37-47) Mean Corpuscular Volume 94.8 fL (80-100) Mean Corpuscular Hemoglobin 33.8 pg (25-34) Mean Corpuscular Hemoglobin Concent 35.6 g/dl (32-36) Platelet Count 164 K/uL (130-400) Mean Platelet Volume 10.2 fL (7.4-10.4) Neutrophils (%) (Auto) 48.9 % Lymphocytes (%) (Auto) 39.2 % Monocytes (%) (Auto) 7.5 % Eosinophils (%) (Auto) 3.4 % Basophils (%) (Auto) 0.6 % Neutrophils # (Auto) 2.28 K/uL (1.4-6.5) Lymphocytes # (Auto) 1.83 K/uL (1.2-3.4) Monocytes # (Auto) 0.35 K/uL (0.11-0.59) Eosinophils # (Auto) 0.16 K/uL (0-0.5) Basophils # (Auto) 0.03 K/uL (0-0.2) RDW Standard Deviation 43.5 fL (36.4-46.3) RDW Coefficient of Variation 12.6 % (11.5-14.5) Immature Granulocyte % (Auto) 0.4 % Immature Granulocyte # (Auto) 0.02 K/uL (0.00-0.02) Urine Color YELLOW Urine Appearance TURBID (CLEAR) Urine pH 8.0 (4.5-7.5) Urine Specific [place] 1.017 (1.000-1.030) Urine Protein NEG (NEG) Urine Glucose (UA) NEG (NEG) Urine Ketones NEG (NEG) Urine Occult Blood NEG (NEG) Urine Nitrite NEG (NEG) Urine Bilirubin NEG (NEG) Urine Urobilinogen NEG (NEG) Urine Leukocyte Esterase NEG (NEG) Urine WBC (Auto) 1-5 /hpf (0-5) Urine RBC (Auto) 0-4 /hpf (0-4) Urine Hyaline Casts (Auto) 1-5 /lpf (0-5) Urine Epithelial Cells (Auto) 10-20 /lpf (0-5) Urine Bacteria (Auto) NEG (NEG) Anion Gap 6.0 mmol/L (3-11) Est Creatinine Clear Calc Drug Dose 67.3 ml/min Estimated GFR () 82.3 Estimated GFR (Non- 71.0 BUN/Creatinine Ratio 16.1 (10-20) Calcium Level 8.0 mg/dl (8.5-10.1) Medications Administered Medications (Trade) Dose Ordered Sig/Cassy Route Start Time Stop Time Status Last Admin Dose Admin Hydromorphone HCl (Dilaudid Inj) 1 mg NOW STAT IV 06/20/17 04:42 06/20/17 04:45 DC 06/20/17 05:10 1 MG Sodium Chloride 1,000 ml @ 999 mls/hr Q1H1M STAT IV 06/20/17 04:42 06/20/17 05:42 DC 06/20/17 05:11 999 MLS/HR Hydromorphone HCl (Dilaudid Inj) 1 mg NOW STAT IV 06/20/17 05:57 06/20/17 05:58 DC 06/20/17 06:18 1 MG ED Course The patient was evaluated as above. Labs were drawn and IV access was obtained. Patient was medicated with 1 L normal saline solution and 1 mg Dilaudid. Patient was reevaluated and stated she had only slight improvement of her pain to a 7/10. She was given an additional 1 mg Dilaudid at this time. Patient was reevaluated and reported persistent pain. [facility] He agreed to evaluate the patient for admission. Medical Decision Differential diagnosis includes kidney stone, pyelonephritis, urinary retention , among others. The patient is a 46-year-old female who presents today complaining of persistent pain after being diagnosed with a left ureteral stone. Patient has been taking her prescribed medications without relief. Labs revealed no leukocytosis or acute kidney injury. Urinalysis was not suggestive of infection. Patient was medicated with 2 rounds of Dilaudid and reported persistent pain. Options of care were discussed with the patient including discharge for outpatient follow-up versus admission for pain control and urology consult. The patient does not feel that she can manage her pain at home and would like to be admitted. The [facility]. [place] Drug Monitoring Program Search Results: patient reviewed within database (receives regular prescriptions for Hydrocodone from PCP) Medication Reconcilliation Current Medication List: was personally reviewed by [place] Blood Pressure Screening Patient's blood pressure: Normal blood pressure Impression Primary Impression: Left ureteral calculus Departure Information Referrals Rula Turpin M.D. (PCP) Patient Instructions [facility]
[2017-06-20] MEDS ORDERED: TAMS0.4C38 PO (04:54)
[2017-06-20 05:36] LABS: BASO % 0.6 %; BASO ABS # 0.03 K/uL (0-0.2); EOS % 3.4 %; EOS ABS # 0.16 K/uL (0-0.5); HEMATOCRIT 42.1 % (37-47); IG# 0.02 K/uL (0.00-0.02); LYMPH % 39.2 %; LYMPH ABS # 1.83 K/uL (1.2-3.4); MEAN CELL VOLUME 94.8 fL (80-100); MEAN CORPUSCULAR HEMOGLOBIN 33.8 pg (25-34); MEAN CORPUSCULAR HGB CONC 35.6 g/dl (32-36); MEAN PLATELET VOLUME 10.2 fL (7.4-10.4); MONO % 7.5 %; MONO ABS # 0.35 K/uL (0.11-0.59); NEUT % 48.9 %; NEUT ABS # 2.28 K/uL (1.4-6.5); PLATELET COUNT 164 K/uL (130-400); RED CELL DISTRIBUTION WIDTH CV 12.6 % (11.5-14.5); RED CELL DISTRIBUTION WIDTH SD 43.5 fL (36.4-46.3); WHITE BLOOD COUNT 4.67 K/uL (4.8-10.8)
[2017-06-20 05:49] LABS: CREATININE 0.97 mg/dl (0.60-1.20); POTASSIUM 3.3 mmol/L (3.5-5.1)
[2017-06-20] MEDS ORDERED: IV FLUIDS COMPLETED PRN (07:00)
[2017-06-20] MEDS ORDERED: NSS + 20MEQ KCL 1000ML 1,000 ML IV SCH (08:00)
[2017-06-20] MEDS ORDERED: POTASSIUM CHLORIDE 10 MEQ TABCR PO ONE (08:00)
[2017-06-20] MEDS: HYDROmorphone INJ 0.5 MG/0.5 ML SYR IV PRN (08:11)
[2017-06-20] MEDS ORDERED: ACETAMINOPHEN 325 MG TAB PO PRN (09:00)
[2017-06-20] MEDS ORDERED: LORA-741 PO (09:00)
[2017-06-20] MEDS: SODIUM CHLORIDE 0.9% 1000ML 1,000 ML IV SCH ×3 (09:01→22:19)
[2017-06-20] MEDS ORDERED: NALOXONE HCL 0.4 MG/1 ML VIAL/CARP IV PRN (09:15)
[2017-06-20] MEDS ORDERED: POLYETHYLENE (MIRALAX) 17 GM PACK PO PRN (09:15)
[2017-06-20 09:25] LABS: INR 1.7 (0.9-1.1)
[2017-06-20] MEDS ORDERED: ALBUTEROL HFA 8 GM INHALER INH PRN (09:30)
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
[2017-06-20] MEDS: HYDROmorphone HCL 0.5MG/ML 50 ML CASSETTE IV PRN ×2 (09:41→22:51)
[2017-06-20] MEDS: ONDANSETRON INJ 2 MG/ML 2 ML VIAL IV PRN ×2 (09:46→18:21)
[2017-06-20] MEDS: PANTOprazole SOD 40 MG TAB PO SCH (10:17)
[2017-06-20] MEDS: TAMSULOSIN HCL 0.4 MG CAP PO SCH (10:17)
[2017-06-20] MEDS: TOPIRAMATE 100 MG TAB PO SCH ×2 (10:18→21:16)
[2017-06-20] MEDS: LORAZEPAM 0.5 MG TAB PO PRN (14:38)
[2017-06-20] MEDS ORDERED: WARFARIN SOD 5 MG TAB PO SCH (16:00)
[2017-06-20] MEDS ORDERED: IBUPROFEN 800 MG TAB PO ONE (17:30)
[2017-06-20] MEDS ORDERED: IBUPROFEN 200 MG TAB PO STA (17:32)
--- NOTE | 2017-06-20 17:39 | Urology Consultation ---
History General Date of Service: Jun 20, 2017. Chief Complaint: left renal colic Primary Care Physician: Rula Turpin M.D. Pt seen a urologist before?: Yes If yes, why?: right renal colic History of Present Illness I am asked by Dr Leija to evaluate and treat patient for left renal colic. She has had left renal colic since sunday06/17/17. She has had both left flank pain and left suprapubic pain. She has severe suprapubic pressure, "like a baby .". She has had stones before last 3 yrs ago a right distal stone which would not pass. She had ureteroscopy and had a lot of trouble with post-op pain. Her pain now is being managed with dilaudid welfare case worker. She is on coumadin for PE DVT hypercoagulable state (leiden) but has missed several doses lately due to nausea and emesis. Imaging Imaging: CT Laboratory Results Past 24 Hours Test 06/20/17 05:10 06/20/17 09:01 Range/Units White Blood Count 4.67 4.8-10.8 K/uL Red Blood Count 4.44 4.2-5.4 M/uL Hemoglobin 15.0 12.0-16.0 g/dL Hematocrit 42.1 37-47 % Mean Corpuscular Volume 94.8 80-100 fL Mean Corpuscular Hemoglobin 33.8 25-34 pg Mean Corpuscular Hemoglobin Concent 35.6 32-36 g/dl Platelet Count 164 130-400 K/uL Mean Platelet Volume 10.2 7.4-10.4 fL Neutrophils (%) (Auto) 48.9 % Lymphocytes (%) (Auto) 39.2 % Monocytes (%) (Auto) 7.5 % Eosinophils (%) (Auto) 3.4 % Basophils (%) (Auto) 0.6 % Neutrophils # (Auto) 2.28 1.4-6.5 K/uL Lymphocytes # (Auto) 1.83 1.2-3.4 K/uL Monocytes # (Auto) 0.35 0.11-0.59 K/uL Eosinophils # (Auto) 0.16 0-0.5 K/uL Basophils # (Auto) 0.03 0-0.2 K/uL RDW Standard Deviation 43.5 36.4-46.3 fL RDW Coefficient of Variation 12.6 11.5-14.5 % Immature Granulocyte % (Auto) 0.4 % Immature Granulocyte # (Auto) 0.02 0.00-0.02 K/uL Urine Color YELLOW Urine Appearance TURBID CLEAR Urine pH 8.0 4.5-7.5 Urine Specific [place] 1.017 1.000-1.030 Urine Protein NEG NEG Urine Glucose (UA) NEG NEG Urine Ketones NEG NEG Urine Occult Blood NEG NEG Urine Nitrite NEG NEG Urine Bilirubin NEG NEG Urine Urobilinogen NEG NEG Urine Leukocyte Esterase NEG NEG Urine WBC (Auto) 1-5 0-5 /hpf Urine RBC (Auto) 0-4 0-4 /hpf Urine Hyaline Casts (Auto) 1-5 0-5 /lpf Urine Epithelial Cells (Auto) 10-20 0-5 /lpf Urine Bacteria (Auto) NEG NEG Urine Test NEG NEG Sodium Level 140 136-145 mmol/L Potassium Level 3.3 3.5-5.1 mmol/L Chloride Level 113 98-107 mmol/L Carbon Dioxide Level 21 21-32 mmol/L Anion Gap 6.0 3-11 mmol/L Blood Urea Nitrogen 16 7-18 mg/dl Creatinine 0.97 0.60-1.20 mg/dl Est Creatinine Clear Calc Drug Dose 67.3 ml/min Estimated GFR () 82.3 Estimated GFR (Non- 71.0 BUN/Creatinine Ratio 16.1 10-20 Random Glucose 103 70-99 mg/dl Calcium Level 8.0 8.5-10.1 mg/dl Prothrombin Time 17.8 9.0-12.0 SECONDS Prothromb Time International Ratio 1.7 0.9-1.1 Labs were reviewed and are within normal limits unless listed below. Labs are available in the chart and at [facility] Problem List Medical Problems: (1) Asthma, Unspecified Status: Chronic (2) Bipolar Disorder, Unspecified Status: Chronic (3) Coagulopathy Status: Acute (4) Common Migraine W/O Intractable Migraine Status: Chronic (5) DVT (deep venous thrombosis) Status: Acute (6) Epilepsy, Unsp, Not Intractable, Without Status Epilepticus Status: Chronic (7) Episode of heavy vaginal bleeding Status: Acute (8) Factor V Leiden Status: Chronic (9) Failure of outpatient treatment Status: Acute (10) Hypokalemia Status: Acute (11) Left leg DVT Status: Acute (12) Left leg DVT Status: Acute (13) Left leg pain Status: Acute (14) Left ureteral calculus Status: Acute (15) Left ureteral calculus Status: Acute (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 Status: 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 (17) Lower abdominal pain Status: Acute (18) On anticoagulant therapy Status: Acute (19) Pelvic cramping Status: Acute (20) PID (acute pelvic inflammatory disease) Status: Acute (21) Right ankle sprain Status: Acute (22) Right-sided chest pain Status: Acute (23) Shortness of breath Status: Acute (24) Shortness of breath Status: Acute Past History bipolar disorder, deep vein thrombosis, depression, hypercoagulability, kidney stones, pulmonary embolism, other Past Surgical History: no surgical history, tubal ligation Family History FH: cancer FH: multiple sclerosis MOTHER Gallbladder disease Kidney disease Kidney stones Social History Hx Tobacco Use In Past Year?: Yes (depends on day; average 1/2 pack) Smoking: less than 1 pack/day Alcohol: never Drug use: none Marital status: (reports being on the brink of divorce), other (soon to be ) Housing status: lives with family (lives with her 15 year old daughter) 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) Immunizations History of Influenza Vaccine: Yes Influenza Vaccine Date: May 29, 2016 History of Tetanus Vaccine?: Yes Tetanus Immunization Date: November 07, 2013 History of Pneumococcal: Yes Pneumococcal Date: Mar 23, 2014 History of Hepatitis B Vaccine: Unknown History of MDRO No Allergies Coded Allergies: Kiwi (Verified Allergy, Severe, ANAPHYLAXIS, 06/20/17) NUTS (Verified Allergy, Severe, ANAPHYLAXIS, 06/20/17) Metronidazole (Verified Allergy, Intermediate, hives, 06/20/17) Morphine (Verified Allergy, Intermediate, chest pain; trouble breathing, 06/20/17) Peanut (Verified Allergy, Unknown, 06/20/17) Prochlorperazine (Verified Allergy, Unknown, SEVERE ALLERGIC RXN, 06/20/17 ) Medications Home Medications: Home Meds and Scripts Medications Dose Route/Sig Max Daily Dose Days Date Category Dose Instructions Ativan (Lorazepam) 0.5 Mg Tab 0.5 Mg PO TID PRN 06/20/17 Reported Prazosin (Prazosin HCl) 1 Mg Cap 1 Mg PO HS 06/20/17 Reported Motrin (Ibuprofen) 600 Mg Tab 600 Mg PO DIRECTED PRN 06/20/17 Reported Trintellix (Vortioxetine HBr) 20 Mg Tab 20 Mg PO DAILY 06/19/17 Reported [place] 5MG/325MG (Acetaminophen/Hydrocodone Bitart) Tab 1 Tablet PO TID PRN 05/03/17 Reported PRN PAIN Prilosec (Omeprazole) 40 Mg Cap 40 Mg PO DAILY 02/19/17 Reported Sumatriptan Succinate 50 Mg Tab 50 Mg PO UD PRN 08/02/16 Reported TAKE ONE TABLET AT ONSET OF MIGRAINE, MAY REPEAT AFTER 2 HOURS IF NEEDED. MAXIMUM 4 TABLETS A DAY. Ventolin Hfa (Albuterol) 200 Puffs/[id number] Mcg Aers 2 Puffs INH QID PRN 07/25/16 Reported Coumadin (Warfarin Sodium) 5 Mg Tab 5 Mg PO DAILY 03/20/14 Reported Topamax (Topiramate) 200 Mg Tab 200 Mg PO BID 06/23/13 Reported Inpatient Medications: Current Inpatient Medications Medications (Trade) Dose Ordered Sig/Cassy Route Start Time Stop Time Status Last Admin Dose Admin Hydromorphone HCl (Dilaudid Inj) 0.5 mg Q4H PRN IV 06/20/17 06:45 07/04/17 06:44 06/20/17 08:11 0.5 MG Acetaminophen (Tylenol Tab) 650 mg Q4H PRN PO 06/20/17 06:45 07/20/17 06:44 Ondansetron HCl (Zofran Inj) 4 mg Q6H PRN IV 06/20/17 06:45 07/20/17 06:44 06/20/17 09:46 4 MG Miscellaneous (Iv Fluids Completed) 1 ea PRN PRN N/A 06/20/17 07:00 06/20/18 06:59 Sodium Chloride 1,000 ml @ 150 mls/hr Q6H40M IV 06/20/17 16:00 07/20/17 15:59 06/20/17 16:21 150 MLS/HR Naloxone HCl (Narcan Inj) 0.1 mg Q5M PRN IV 06/20/17 09:15 07/20/17 09:14 Hydromorphone HCl (Dilaudid Mechanical Design Engineer Products) 25 mg PRN PRN IV 06/20/17 09:15 07/04/17 09:14 06/20/17 09:41 25 MG Docusate Sodium (coLACE CAP) 100 mg BID PO 06/20/17 21:00 07/20/17 20:59 Sodium Chloride 1,000 ml @ 15 mls/hr Q24H IV 06/20/17 09:01 07/20/17 09:00 Polyethylene (Miralax Powder Packet) 17 gm DAILY PRN PO 06/20/17 09:15 07/20/17 09:14 Albuterol (Ventolin Hfa Inhaler) 2 puffs QID PRN INH 06/20/17 09:30 07/20/17 09:29 Lorazepam (Ativan Tab) 0.5 mg TID PRN PO 06/20/17 09:15 07/20/17 09:14 06/20/17 14:38 0.5 MG Topiramate (Topamax Tab) 200 mg BID PO 06/20/17 09:30 07/20/17 09:29 06/20/17 10:18 200 MG Warfarin Sodium (Coumadin Tab) 5 mg DAILY@1600 PO 06/20/17 16:00 07/20/17 15:59 Miscellaneous Information (Order Awaiting Action) 1 ea QS N/A 06/20/17 16:00 07/20/17 15:59 Pantoprazole Sodium (Protonix Tab) 40 mg QAM PO 06/20/17 09:30 07/20/17 09:29 06/20/17 10:17 40 MG Tamsulosin HCl (Flomax Cap) 0.4 mg QAM PO 06/20/17 09:30 07/20/17 09:29 06/20/17 10:17 0.4 MG Prazosin HCl (Prazosin) 1 mg HS PO 06/20/17 21:00 07/20/17 20:59 Review of Systems Review of Systems Constitutional: + frequent headaches (migraines), No fever, No chills Neurological: No dizzy, No passing out, No seizures (none for years) Gastrointestinal: + abdominal pain, + indigestion, + nausea, + vomiting, No constipation, No diarrhea Cardiovascular: No chest pain, No palpitations, No swelling ankles/feet Respiratory: No shortness of breath, No chronic cough Female : + frequent urination, + weak stream, + kidney stones, + problem reported (severe hesitation to void, feels like she has to push to void) Physical Exam Vital Signs: Vital Signs Past 12 Hours Date Time Temp Pulse Resp B/P (MAP) Pulse Ox O2 Delivery O2 Flow Rate FiO2 06/20/17 15:45 Room Air 06/20/17 15:23 36.7 74 18 105/69 (81) 94 Room Air 06/20/17 13:58 36.5 63 19 121/73 (89) 97 Room Air 06/20/17 12:50 36.7 66 16 102/69 (80) 95 Room Air 06/20/17 11:53 36.4 67 19 116/70 (85) 96 Room Air 06/20/17 10:47 36.7 59 16 102/67 (79) 96 Room Air 06/20/17 09:52 36.9 59 17 113/72 (86) 96 Room Air 06/20/17 08:32 Room Air 06/20/17 08:23 36.7 66 20 107/68 06/20/17 07:47 72 17 96/62 97 Room Air 06/20/17 06:03 71 22 108/64 98 Room Air Physical Exam: General Appearance: WD/WN, no apparent distress, + pertinent finding (mildly overweight) Eyes: bilateral eyes normal inspection ENT: hearing grossly normal Neck: supple, no adenopathy, no JVD, trachea midline Respiratory/Chest: normal breath sounds, no respiratory distress, no accessory muscle use Cardiovascular: regular rate, rhythm, no edema Gastrointestinal: Abdomen: normal abdomen Bladder: normal bladder Renal: normal renal Extremities: non-tender, normal inspection, no pedal edema, no calf tenderness 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iatric: alert, normal mood/affect, oriented x 3 Skin: normal color, warm/dry, no rash Assessment & Plan Assessment & Plan left uvj stone plan to give her another day to try to pass if not then to OR tomorrow at about 5pm. She can have general breakfast then npo except meds tomorrow may have 5mg coumadin tonight. may have single dose 400mg ibuprofen for her emerging migraine. I explained surgery and risks and she signed consent having her questions answered. Post oip a few years ago she had severe pain for days. She may have to stay post op a few days.
[2017-06-20] MEDS: PRAZOSIN HCL 1 MG CAP PO SCH (21:16)
[2017-06-20] MEDS: DOCUSATE SODIUM 100 MG CAP PO SCH (21:16)
[2017-06-20] MEDS: ALPRAZOLAM 0.25 MG TAB PO PRN (22:05)
[2017-06-21] VITALS (13 sets, daily range): BP systolic 86–146; BP diastolic 56–91; PULSE 62–105; TEMP 36.4–36.9; O2SAT 95–98
[2017-06-21] MEDS: SODIUM CHLORIDE 0.9% 1000ML 1,000 ML IV SCH ×4 (04:46→22:46)
[2017-06-21 06:40] LABS: INR 2.6 (0.9-1.1)
[2017-06-21] MEDS: HYDROmorphone HCL 0.5MG/ML 50 ML CASSETTE IV PRN (06:57)
[2017-06-21 07:07] LABS: CREATININE 0.9 mg/dl (0.60-1.20); POTASSIUM 3.8 mmol/L (3.5-5.1)
[2017-06-21] MEDS: ONDANSETRON INJ 2 MG/ML 2 ML VIAL IV PRN ×2 (07:14→23:49)
[2017-06-21] MEDS: LORAZEPAM 0.5 MG TAB PO PRN (07:14)
--- NOTE | 2017-06-21 08:12 | Progress Note ---
Medicine Progress Note Date & Time of Visit: Jun 21, 2017 at 08:03. Subjective 46 yo F with h/o nephrolithiasis treated surgically and chronic narcotic use presents with L flank pain that is progressively worsened 2/2 5mm obstructing L ureteral stone. Last evening she began getting a migraine and was given one dose of Ibuprofen. This morning, she is having a worsened migraine and is lying in a dark room with ice on her head. She reports that her flank pain is well managed with the Dilaudid and the pain is mostly just before and after she urinates. She did vomit once this morning. Plan is for cystoscopy later this evening. I discussed the possibility of using Imitrex and Toradol with Dr. Thompson this morning. Objective Last 8 Hrs Date Time Temp Pulse Resp B/P (MAP) Pulse Ox O2 Delivery O2 Flow Rate FiO2 06/21/17 07:42 36.5 75 18 116/64 (81) 96 Room Air 06/21/17 04:00 36.6 62 16 100/61 (74) 98 Room Air Physical Exam: GEN: WNWD, in distress 2/2 pain-holding her head, alert and appropriate but ill- appearing HEENT: NC/AT CARDIO: reg rate, S1/2 heard without m/g/r LUNGS: CTA bilaterally, no crackles, rales or wheezes, good diaphragmatic excursion ABD: soft, TTP in LLQ, non-distended, +BS, +CVA tenderness on L side EXTREMITY: no LE swelling or edema, extremities are warm and well-perfused SKIN: warm and dry Laboratory Results: 06/20/17 05:10 Red Blood Count 4.44, Mean Corpuscular Volume 94.8, Mean Corpuscular Hemoglobin 33.8, Mean Corpuscular Hemoglobin Concent 35.6, Mean Platelet Volume 10.2, Neutrophils (%) (Auto) 48.9, Lymphocytes (%) (Auto) 39.2, Monocytes (%) (Auto) 7.5, Eosinophils (%) (Auto) 3.4, Basophils (%) (Auto) 0.6, Neutrophils # (Auto) 2.28, Lymphocytes # (Auto) 1.83, Monocytes # (Auto) 0.35, Eosinophils # (Auto) 0.16, Basophils # (Auto) 0.03 06/21/17 05:37 Test 06/20/17 05:10 06/21/17 05:37 White Blood Count 4.67 K/uL (4.8-10.8) Red Blood Count 4.44 M/uL (4.2-5.4) Hemoglobin 15.0 g/dL (12.0-16.0) Hematocrit 42.1 % (37-47) Mean Corpuscular Volume 94.8 fL (80-100) Mean Corpuscular Hemoglobin 33.8 pg (25-34) Mean Corpuscular Hemoglobin Concent 35.6 g/dl (32-36) Platelet Count 164 K/uL (130-400) Mean Platelet Volume 10.2 fL (7.4-10.4) Neutrophils (%) (Auto) 48.9 % Lymphocytes (%) (Auto) 39.2 % Monocytes (%) (Auto) 7.5 % Eosinophils (%) (Auto) 3.4 % Basophils (%) (Auto) 0.6 % Neutrophils # (Auto) 2.28 K/uL (1.4-6.5) Lymphocytes # (Auto) 1.83 K/uL (1.2-3.4) Monocytes # (Auto) 0.35 K/uL (0.11-0.59) Eosinophils # (Auto) 0.16 K/uL (0-0.5) Basophils # (Auto) 0.03 K/uL (0-0.2) RDW Standard Deviation 43.5 fL (36.4-46.3) RDW Coefficient of Variation 12.6 % (11.5-14.5) Immature Granulocyte % (Auto) 0.4 % Immature Granulocyte # (Auto) 0.02 K/uL (0.00-0.02) Urine Color YELLOW Urine Appearance TURBID (CLEAR) Urine pH 8.0 (4.5-7.5) Urine Specific [place] 1.017 (1.000-1.030) Urine Protein NEG (NEG) Urine Glucose (UA) NEG (NEG) Urine Ketones NEG (NEG) Urine Occult Blood NEG (NEG) Urine Nitrite NEG (NEG) Urine Bilirubin NEG (NEG) Urine Urobilinogen NEG (NEG) Urine Leukocyte Esterase NEG (NEG) Urine WBC (Auto) 1-5 /hpf (0-5) Urine RBC (Auto) 0-4 /hpf (0-4) Urine Hyaline Casts (Auto) 1-5 /lpf (0-5) Urine Epithelial Cells (Auto) 10-20 /lpf (0-5) Urine Bacteria (Auto) NEG (NEG) Urine Test NEG (NEG) Prothrombin Time 27.2 SECONDS (9.0-12.0) Prothromb Time International Ratio 2.6 (0.9-1.1) Anion Gap 5.0 mmol/L (3-11) Est Creatinine Clear Calc Drug Dose 72.6 ml/min Estimated GFR () 90.1 Estimated GFR (Non- 77.8 BUN/Creatinine Ratio 16.3 (10-20) Calcium Level 8.0 mg/dl (8.5-10.1) Magnesium Level 2.0 mg/dl (1.8-2.4) Last 24 Hours Test 06/20/17 09:01 06/21/17 05:37 Prothrombin Time 17.8 SECONDS 27.2 SECONDS Prothromb Time International Ratio 1.7 2.6 Sodium Level 140 mmol/L Potassium Level 3.8 mmol/L Chloride Level 112 mmol/L Carbon Dioxide Level 23 mmol/L Anion Gap 5.0 mmol/L Blood Urea Nitrogen 15 mg/dl Creatinine 0.90 mg/dl Est Creatinine Clear Calc Drug Dose 72.6 ml/min Estimated GFR () 90.1 Estimated GFR (Non- 77.8 BUN/Creatinine Ratio 16.3 Random Glucose 93 mg/dl Calcium Level 8.0 mg/dl Magnesium Level 2.0 mg/dl Assessment & Plan 46 yo F with h/o nephrolithiasis treated surgically and chronic narcotic use presents with L flank pain that is progressively worsened 2/2 5mm obstructing L ureteral stone. Last evening she began getting a migraine and was given one dose of Ibuprofen. This morning, she is having a worsened migraine and is lying in a dark room with ice on her head. She reports that her flank pain is well managed with the Dilaudid and the pain is mostly just before and after she urinates. She did vomit once this morning. Plan is for cystoscopy later this evening. I discussed the possibility of using Imitrex and Toradol with Dr. Thompson this morning. 1. Ureteral colic 2/2 distal obstructing stone. Uro plans for cysto later this evening. 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 Strain all urine. UA is negative for infection. 2. Depression-continues on Trintellix and Xanax PRN (Ativan was listed but was switched to Xanax overnight) 3. Factor V Leiden-on chronic coumadin. INR 2/6 this morning. Coumadin on hold. 4. Seizure disorder-continues on Topamax. Pt reports being seizure-free for the past 10 years. DVT proph-Coumadin Full Code Dispo-med/surg. Cysto tonight. In the past has had post-operative courses complicated by difficulties with pain management. Discharge will depend on how she is doing. Beatriz Man DO [facility] Hospitalist Consultants: Urology-Dr. Thompson Current Inpatient Medications: Current Inpatient Medications Medications (Trade) Dose Ordered Sig/Cassy Route Start Time Stop Time Status Last Admin Dose Admin Hydromorphone HCl (Dilaudid Inj) 0.5 mg Q4H PRN IV 06/20/17 06:45 07/04/17 06:44 06/20/17 08:11 0.5 MG Acetaminophen (Tylenol Tab) 650 mg Q4H PRN PO 06/20/17 06:45 07/20/17 06:44 Ondansetron HCl (Zofran Inj) 4 mg Q6H PRN IV 06/20/17 06:45 07/20/17 06:44 06/21/17 07:14 4 MG Miscellaneous (Iv Fluids Completed) 1 ea PRN PRN N/A 06/20/17 07:00 06/20/18 06:59 Sodium Chloride 1,000 ml @ 150 mls/hr Q6H40M IV 06/20/17 16:00 07/20/17 15:59 06/21/17 04:46 150 MLS/HR Naloxone HCl (Narcan Inj) 0.1 mg Q5M PRN IV 06/20/17 09:15 07/20/17 09:14 Hydromorphone HCl (Dilaudid Deputy K 9) 25 mg PRN PRN IV 06/20/17 09:15 07/04/17 09:14 06/21/17 06:57 25 MG Docusate Sodium (coLACE CAP) 100 mg BID PO 06/20/17 21:00 07/20/17 20:59 06/20/17 21:16 100 MG Sodium Chloride 1,000 ml @ 15 mls/hr Q24H IV 06/20/17 09:01 07/20/17 09:00 Polyethylene (Miralax Powder Packet) 17 gm DAILY PRN PO 06/20/17 09:15 07/20/17 09:14 Albuterol (Ventolin Hfa Inhaler) 2 puffs QID PRN INH 06/20/17 09:30 07/20/17 09:29 Topiramate (Topamax Tab) 200 mg BID PO 06/20/17 09:30 07/20/17 09:29 06/20/17 21:16 200 MG Warfarin Sodium (Coumadin Tab) 5 mg DAILY@1600 PO 06/20/17 16:00 07/20/17 15:59 Future Hold 06/20/17 18:00 5 MG Miscellaneous Information (Order Awaiting Action) 1 ea QS N/A 06/20/17 16:00 07/20/17 15:59 Pantoprazole Sodium (Protonix Tab) 40 mg QAM PO 06/20/17 09:30 07/20/17 09:29 06/20/17 10:17 40 MG Tamsulosin HCl (Flomax Cap) 0.4 mg QAM PO 06/20/17 09:30 07/20/17 09:29 06/20/17 10:17 0.4 MG Prazosin HCl (Prazosin) 1 mg HS PO 06/20/17 21:00 07/20/17 20:59 06/20/17 21:16 1 MG Alprazolam (Xanax Tab) 0.25 mg HS PRN PO 06/20/17 22:00 07/20/17 21:59 06/20/17 22:05 0.25 MG
[2017-06-21] MEDS ORDERED: SUMATRIPTAN SUCCINATE 6 MG/0.5 ML VIAL SQ STA (08:34)
[2017-06-21] MEDS: DOCUSATE SODIUM 100 MG CAP PO SCH ×3 (08:49→21:28)
[2017-06-21] MEDS: TAMSULOSIN HCL 0.4 MG CAP PO SCH (08:50)
[2017-06-21] MEDS: TOPIRAMATE 100 MG TAB PO SCH ×3 (08:50→21:28)
[2017-06-21] MEDS: PANTOprazole SOD 40 MG TAB PO SCH (08:50)
[2017-06-21] MEDS ORDERED: SUMATRIPTAN SUCCINATE 6 MG/0.5 ML VIAL SQ ONE (12:15)
[2017-06-21] MEDS ORDERED: MIDAZOLAM HCL 1 MG/ML 2ML VIAL ONE (16:15)
[2017-06-21] MEDS ORDERED: FENTANYL CITRATE INJ 50 MCG/1 ML 2 ML VIAL ONE ×2 (16:15→20:00)
[2017-06-21] MEDS ORDERED: CIPROFLOXACIN 400MG / 200ML D5W ONE (17:23)
[2017-06-21] MEDS ORDERED: CEFAZOLIN SOD 2000MG/15 ML IV PUSH IV ONE (17:36)
--- NOTE | 2017-06-21 17:38 | Progress Note ---
Subjective Date of Service: Jun 21, 2017. Subjective Pt evaluation today including: conversation w/ patient, physical exam Voiding: no voiding problems patient still with pressure in bladder, no stone has been passed. She has had pain and nausea all day. She had emesis x 2. Problem List Medical Problems: (1) Asthma, Unspecified Status: Chronic (2) Bipolar Disorder, Unspecified Status: Chronic (3) Coagulopathy Status: Acute (4) Common Migraine W/O Intractable Migraine Status: Chronic (5) DVT (deep venous thrombosis) Status: Acute (6) Epilepsy, Unsp, Not Intractable, Without Status Epilepticus Status: Chronic (7) Episode of heavy vaginal bleeding Status: Acute (8) Factor V Leiden Status: Chronic (9) Failure of outpatient treatment Status: Acute (10) Hypokalemia Status: Acute (11) Left leg DVT Status: Acute (12) Left leg DVT Status: Acute (13) Left leg pain Status: Acute (14) Left ureteral calculus Status: Acute (15) Left ureteral calculus Status: Acute (16) 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 (17) Lower abdominal pain Status: Acute (18) On anticoagulant therapy Status: Acute (19) Pelvic cramping Status: Acute (20) PID (acute pelvic inflammatory disease) Status: Acute (21) Right ankle sprain Status: Acute (22) Right-sided chest pain Status: Acute (23) Shortness of breath Status: Acute (24) Shortness of breath Status: Acute Review of Systems Constitutional: No fever, No chills, No sweats Respiratory: No cough, No sputum Female : + dysuria, + urinary frequency Objective Vital Signs Date Time Temp Pulse Resp B/P (MAP) Pulse Ox O2 Delivery O2 Flow Rate FiO2 06/21/17 15:45 Room Air 06/21/17 15:03 36.9 71 18 86/56 (66) 95 Room Air 06/21/17 07:45 Room Air 06/21/17 07:42 36.5 75 18 116/64 (81) 96 Room Air 06/21/17 04:00 36.6 62 16 100/61 (74) 98 Room Air 06/20/17 23:05 Room Air 06/20/17 22:55 36.6 62 16 104/69 (81) 95 Room Air 06/20/17 19:52 36.9 73 18 104/68 (80) 96 Room Air Physical Exam General Appearance: WD/WN, no apparent distress, + obese Eyes: PERRL ENT: hearing grossly normal 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iatric: alert, normal mood/affect, oriented x 3 Skin: normal color, warm/dry, no rash Laboratory Results Last 24 Hours Test 06/21/17 05:37 Prothrombin Time 27.2 SECONDS Prothromb Time International Ratio 2.6 Sodium Level 140 mmol/L Potassium Level 3.8 mmol/L Chloride Level 112 mmol/L Carbon Dioxide Level 23 mmol/L Anion Gap 5.0 mmol/L Blood Urea Nitrogen 15 mg/dl Creatinine 0.90 mg/dl Est Creatinine Clear Calc Drug Dose 72.6 ml/min Estimated GFR () 90.1 Estimated GFR (Non- 77.8 BUN/Creatinine Ratio 16.3 Random Glucose 93 mg/dl Calcium Level 8.0 mg/dl Magnesium Level 2.0 mg/dl Assessment and Plan left uvj stone plan to or for left uscope laser litho basket stone extraction 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
[2017-06-21] MEDS ORDERED: PROPOFOL IV EMULSION 10 MG/ML 20 ML VIAL IV ONE (18:05)
[2017-06-21] MEDS ORDERED: LIDOCAINE HCL 2% 2 ML VIAL (20MG/ML) ONE (18:05)
[2017-06-21] MEDS ORDERED: SUCCINYLCHOLINE CHLORIDE 20 MG/ML 10 ML VIAL IV ONE (18:05)
[2017-06-21] MEDS ORDERED: ROCURONIUM BROMIDE 10 MG/ML 5 ML VIAL IV ONE (18:05)
[2017-06-21] MEDS ORDERED: ONDANSETRON INJ 2 MG/ML 2 ML VIAL ONE ×2 (18:05→19:26)
--- NOTE | 2017-06-21 18:35 | [facility] Operative Report ---
Operative Report Operative Date Jun 21, 2017. Pre-Operative Diagnosis Left ureteral stone, left renal stone Post-Operative Diagnosis Same as preoperative diagnosis Procedure(s) Performed Cystoscopy, Left Ureteroscopy, Laser Lithotripsy, Basket Stone Extraction, Left Stent Placement Surgeon Dr. Thompson Delivery Recruiter Surgeon(s) None Estimated Blood Loss 2ml Findings radio-opaque left ureteral stone in distal ureter, radio-lucent left renal stone Specimens a. left ureteral/renal stones Drains 6 fr 24 centimeter double j stent Anesthesia GET Complication(s) None Disposition Recovery Room / PACU Indications severe renal colic due to left distal ureteral stone. Has not passed in 5 days. Description of Procedure Patient was given rapid sequence GET and placed in lithotomy position. Her genitals were prepped and draped in sterile fashion. Time out held with team. I placed a 21 fr rigid cystoscope to bladder. The urethra is unremarkable. The UOs are in normal location. I placed a stiff wire into the left uo and it bumps into the radio-opaque distal ureteral stone about 30mm above the left UO. I had to switch to a road runner to gain access to the kidney. I used a dual lumen cath to calibrate the UO and place a second wire. I passed the semi rigid ureteroscope into the distal ureter. I used a 200 micron holmium laser to fragment the distal ureteral stone into 6 pieces. I used a 2.4 fr zero tip basket to remove all the pieces from the distal ureter. This went well so I then used a flexible ureteroscope passed easily under vision along side the stiff wire all the way to the kidney to basket extract her left upper pole renal stone. I confirmed the distal ureter has no stone fragments remaining. I placed a 24 centimeter 6 Fr double J stent easily. There is brisk efflux after placement. I left bladder empty and concluded case. She transferred to recovery under my escort, in stable condition. 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 Any exceptions are noted below.
[2017-06-21] MEDS ORDERED: ONDANSETRON INJ 2 MG/ML 2 ML VIAL IV PRN (18:45)
[2017-06-21] MEDS ORDERED: ATROPINE SULFATE 0.1 MG/ML 5ML SYR IV PRN (18:45)
[2017-06-21] MEDS ORDERED: HYDROmorphone INJ 0.5 MG/0.5 ML SYR IV PRN (18:45)
--- NOTE | 2017-06-21 18:49 | DIAGNOSTIC IMAGING REPORT ---
RETROGRADE INCLUDES KUB CLINICAL HISTORY: 46 years-old Female presenting with LT CYSTO/LASER/STENT. TECHNIQUE: 9 fluoroscopic spot image(s) obtained as part of an intraoperative procedure. COMPARISON: CT from 06/19/2017. FINDINGS/IMPRESSION: A cystoscope was introduced into the urinary bladder and a guidewire was inserted into the left ureter. Subsequently, a left ureteral stent was placed over a wire. Please see surgical report for further details. Fluoroscopy dosage (mGy): 7.24. Fluoroscopy time: 30.4 seconds. Number of fluoroscopic spot images: 9. Electronically signed by: Ross Mcknight M.D. 06/21/2017 6:48 PM Dictated Date/Time: 06/21/2017 6:46 PM
[2017-06-21] MEDS ORDERED: NURSING VERBAL MED ORDER ONE (19:00)
[2017-06-21] MEDS ORDERED: SCOPOLAMINE 1.5 MG TDSY TD ONE ×2 (19:14→19:18)
[2017-06-21] MEDS: PROMETHAZINE HCL INJ 12.5 MG in SODIUM CHLORIDE 0.9% 50ML 50 ML IV PRN (20:07)
--- NOTE | 2017-06-21 20:34 | Anesthesiology Progress Note ---
Anesthesia Post Op Note Date & Time Jun 21, 2017 at 20:24 Vital Signs Pain Intensity: 0 Vital Signs Past 12 Hours Date Time Temp Pulse Resp B/P (MAP) Pulse Ox O2 Delivery O2 Flow Rate FiO2 06/21/17 20:20 36.1 97 20 119/75 97 Nasal Cannula 4 06/21/17 20:10 96 12 114/79 97 Nasal Cannula 4 06/21/17 20:00 96 13 130/88 97 Nasal Cannula 4 06/21/17 19:50 99 22 116/101 96 Nasal Cannula 4 06/21/17 19:40 94 16 131/82 97 Nasal Cannula 4 06/21/17 19:30 97 13 131/86 96 Nasal Cannula 4 06/21/17 19:20 100 15 122/82 96 Nasal Cannula 4 06/21/17 19:10 105 19 136/71 96 Nasal Cannula 4 06/21/17 19:04 36.0 104 28 143/64 96 Nasal Cannula 4 06/21/17 15:45 Room Air 06/21/17 15:03 36.9 71 18 86/56 (66) 95 Room Air Notes Nausea / Vomiting: improving with treatment The patient was having a significant migraine headache with nausea and vomiting which began immediately post-op and continued in the PACU. She was given 8 mg of zofran in the o.r.and an additional 6.25 mg of phenergan stopped the nausea and vomiting and 50 mcg of fentanyl stopped the migraine. The vomitus was blood- tinged, there was no heavy bleeding. Dr. Thompson talked to the hospitalist who agreed to admit the patient to a telemetry bed. The patient was otherwise stable.
[2017-06-21] MEDS ORDERED: PANTOprazole INJ 80 MG in DEXTROSE 5% 100ML IV SCH (20:45)
[2017-06-21] MEDS: PRAZOSIN HCL 1 MG CAP PO SCH ×2 (21:00→21:28)
[2017-06-21] MEDS: HYDROmorphone INJ 0.5 MG/0.5 ML SYR IV PRN (21:25)
[2017-06-21] MEDS: PANTOprazole INJ 40 MG in DEXTROSE 5% 100ML IV SCH (21:26)
--- NOTE | 2017-06-21 21:34 | Progress Note ---
Progress Note Date of Service Jun 21, 2017. Progress Note received sign out from Dr. Thompson patient had multiple episode of vomiting today, and at PACU had 1 episode of coffee ground emesis, ~150cc also having severe headaches today given Zofran, Phenergan, Fentanyl, patient noted to be more comfortable on exam, patient reports that she is having "bladder pain" and cannot urinate bladder scan showed retention of 600cc no recurrence of coffee ground emesis, denies abdominal pain oriented x 3, uncomfortable due to pain UPPER GI BLEED likely Peg Aki tear secondary to emesis has history of "stomach ulcer" per Epic NPO, Protonix drip, H&H q6h discussed with Dr Ramon, agree with above, does not recommend to reverse INR at this time will monitor URINARY RETENTION discussed with Dr. Thompson, ok to insert Arias catheter Dilaudid 0.5mg IV q6h PRN pain, discussed with pharmacy, no significant interaction between imitrex and dilaudid Diana Leija MD
[2017-06-21 22:31] LABS: HEMATOCRIT 36.9 % (37-47); HEMOGLOBIN 12.9 g/dL (12.0-16.0)
[2017-06-22] VITALS (7 sets, daily range): BP systolic 96–118; BP diastolic 61–75; PULSE 67–86; TEMP 36.9–37.7; O2SAT 94–97
[2017-06-22] MEDS: PANTOprazole INJ 40 MG in DEXTROSE 5% 100ML IV SCH ×5 (00:58→20:34)
[2017-06-22] MEDS: HYDROmorphone INJ 0.5 MG/0.5 ML SYR IV PRN ×4 (01:27→20:34)
[2017-06-22] MEDS ORDERED: HYDROmorphone INJ 0.5 MG/0.5 ML SYR IV PRN (01:45)
[2017-06-22 02:10] LABS: HEMATOCRIT 36.6 % (37-47); HEMOGLOBIN 12.9 g/dL (12.0-16.0)
[2017-06-22] MEDS: PROMETHAZINE HCL INJ 12.5 MG in SODIUM CHLORIDE 0.9% 50ML 50 ML IV PRN ×2 (02:58→10:12)
[2017-06-22] MEDS: SODIUM CHLORIDE 0.9% 1000ML 1,000 ML IV SCH ×4 (05:31→23:58)
[2017-06-22] MEDS: ONDANSETRON INJ 2 MG/ML 2 ML VIAL IV PRN ×2 (05:56→15:04)
--- NOTE | 2017-06-22 06:53 | DIAGNOSTIC IMAGING REPORT ---
KUB CLINICAL HISTORY: r/o ileus, obstruction COMPARISON STUDY: CT of the abdomen and pelvis June 19, 2017. FINDINGS: A left double-J ureteral stent is in place. Stent is appropriately positioned. The distal left ureteral calculus shown on CT of June 19, 2017 is not visualized on this exam. A left renal calculus shown on prior CT is not visualized on this study, possibly due to technique. The bowel gas pattern is normal. There is a moderate amount of stool within the colon and rectum. IMPRESSION: 1. No evidence for a bowel obstruction. Normal bowel gas pattern. 2. Moderate amount of stool within the colon and rectum. 3. Double-J left ureteral stent in place. Distal left ureteral calculus shown on prior CT is not visualized on this exam. Electronically signed by: Louis Roberts M.D. 06/22/2017 6:52 AM Dictated Date/Time: 06/22/2017 6:50 AM
[2017-06-22] MEDS: TOPIRAMATE 100 MG TAB PO SCH ×2 (08:04→20:04)
[2017-06-22] MEDS: TAMSULOSIN HCL 0.4 MG CAP PO SCH (08:04)
[2017-06-22] MEDS: DOCUSATE SODIUM 100 MG CAP PO SCH ×2 (08:04→20:04)
--- NOTE | 2017-06-22 08:11 | Anesthesiology Progress Note ---
Anesthesia Post Op Note Date & Time Jun 22, 2017 at 08:08 Vital Signs Pain Intensity: 8.0 Vital Signs Past 12 Hours Date Time Temp Pulse Resp B/P (MAP) Pulse Ox O2 Delivery O2 Flow Rate FiO2 06/22/17 03:47 37.1 75 17 106/71 (83) 96 Room Air 06/22/17 00:50 76 18 118/75 (89) 96 06/21/17 23:59 98 Room Air 06/21/17 23:51 36.7 75 17 121/81 (94) 97 Room Air 06/21/17 23:21 74 18 106/57 (73) 96 06/21/17 22:45 93 20 135/80 (98) 98 Nasal Cannula 4.0 06/21/17 22:30 84 20 123/80 (94) 98 Nasal Cannula 4.0 06/21/17 22:15 86 20 116/79 (91) 97 Nasal Cannula 4.0 06/21/17 22:00 90 20 113/76 (88) 98 Nasal Cannula 4.0 06/21/17 21:45 36.6 97 20 146/83 (104) 97 Nasal Cannula 4.0 06/21/17 21:03 36.4 101 25 136/91 (106) 97 Room Air 06/21/17 21:00 105 20 127/78 (94) 98 Nasal Cannula 4.0 06/21/17 20:30 99 19 105/77 99 Nasal Cannula 4 06/21/17 20:20 36.1 97 20 119/75 97 Nasal Cannula 4 06/21/17 20:10 96 12 114/79 97 Nasal Cannula 4 Notes Mental Status: alert / awake / arousable, participated in evaluation Pt Amnestic to Procedure: Yes Nausea / Vomiting: adequately controlled Pain: adequately controlled Airway Patency, RR, SpO2: stable & adequate BP & HR: stable & adequate Hydration State: stable & adequate Anesthetic Complications: no major complications apparent The patient underwent a CT scan of her abdomen last evening, to aid in the explannation of her chronic vomiting.....has been made NPO for now, until a clear diagnosis can be made...will continue to follow. Still having uncontrolled back pain, and urologic discomfort.
--- NOTE | 2017-06-22 08:38 | Progress Note ---
Subjective Date of Service: Jun 22, 2017. Subjective Pt evaluation today including: conversation w/ patient, physical exam, chart review, lab review Voiding: smith catheter in place patient restong comfortably at present. On room air, oxygenating well. She had post-op urinary retention and has smith draining large volumes yellow urine. Her migraine has ceased. Her pain is now left kidney and left pelvis. She continues with nausea and last had dry heaves at 3:30am She has throat pain from all the emesis yesterday. Problem List Medical Problems: (1) Asthma, Unspecified Status: Chronic (2) Bipolar Disorder, Unspecified Status: Chronic (3) Coagulopathy Status: Acute (4) Common Migraine W/O Intractable Migraine Status: Chronic (5) DVT (deep venous thrombosis) Status: Acute (6) Epilepsy, Unsp, Not Intractable, Without Status Epilepticus Status: Chronic (7) Episode of heavy vaginal bleeding Status: Acute (8) Factor V Leiden Status: Chronic (9) Failure of outpatient treatment Status: Acute (10) Hypokalemia Status: Acute (11) Left leg DVT Status: Acute (12) Left leg DVT Status: Acute (13) Left leg pain Status: Acute (14) Left ureteral calculus Status: Acute (15) Left ureteral calculus Status: Acute (16) 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 (17) Lower abdominal pain Status: Acute (18) On anticoagulant therapy Status: Acute (19) Pelvic cramping Status: Acute (20) PID (acute pelvic inflammatory disease) Status: Acute (21) Right ankle sprain Status: Acute (22) Right-sided chest pain Status: Acute (23) Shortness of breath Status: Acute (24) Shortness of breath Status: Acute Review of Systems Constitutional: + fatigue, No fever, No chills, No sweats Respiratory: No cough, No sputum, No shortness of breath Cardiac: No chest pain, No palpitations Female : + problem reported (retention post-op) sore throat Objective Vital Signs Date Time Temp Pulse Resp B/P (MAP) Pulse Ox O2 Delivery O2 Flow Rate FiO2 06/22/17 07:00 37.7 86 18 104/66 (79) 97 Room Air 06/22/17 03:47 37.1 75 17 106/71 (83) 96 Room Air 06/22/17 00:50 76 18 118/75 (89) 96 06/21/17 23:59 98 Room Air 06/21/17 23:51 36.7 75 17 121/81 (94) 97 Room Air 06/21/17 23:21 74 18 106/57 (73) 96 06/21/17 22:45 93 20 135/80 (98) 98 Nasal Cannula 4.0 06/21/17 22:30 84 20 123/80 (94) 98 Nasal Cannula 4.0 06/21/17 22:15 86 20 116/79 (91) 97 Nasal Cannula 4.0 06/21/17 22:00 90 20 113/76 (88) 98 Nasal Cannula 4.0 06/21/17 21:45 36.6 97 20 146/83 (104) 97 Nasal Cannula 4.0 06/21/17 21:03 36.4 101 25 136/91 (106) 97 Room Air 06/21/17 21:00 105 20 127/78 (94) 98 Nasal Cannula 4.0 06/21/17 20:30 99 19 105/77 99 Nasal Cannula 4 06/21/17 20:20 36.1 97 20 119/75 97 Nasal Cannula 4 06/21/17 20:10 96 12 114/79 97 Nasal Cannula 4 06/21/17 20:00 96 13 130/88 97 Nasal Cannula 4 06/21/17 19:50 99 22 116/101 96 Nasal Cannula 4 06/21/17 19:40 94 16 131/82 97 Nasal Cannula 4 06/21/17 19:30 97 13 131/86 96 Nasal Cannula 4 06/21/17 19:20 100 15 122/82 96 Nasal Cannula 4 06/21/17 19:10 105 19 136/71 96 Nasal Cannula 4 06/21/17 19:04 36.0 104 28 143/64 96 Nasal Cannula 4 06/21/17 15:45 Room Air 06/21/17 15:03 36.9 71 18 86/56 (66) 95 Room Air Physical Exam General Appearance: WD/WN, no apparent distress, + pertinent finding (mildly overweight) Eyes: normal inspection ENT: hearing grossly normal Neck: no adenopathy Respiratory/Chest: normal breath sounds, no respiratory distress, no accessory muscle use Extremities: non-tender, normal inspection, no pedal edema 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iatric: alert, normal mood/affect, oriented x 3 Laboratory Results Last 24 Hours Test 06/21/17 22:20 06/22/17 01:58 06/22/17 04:44 06/22/17 08:15 Hemoglobin 12.9 g/dL 12.9 g/dL Hematocrit 36.9 % 36.6 % Assessment and Plan left uvj stone removed with ureteroscopy I also removed her left renal stone. She is having her typical severe post-op pain. I think she will need iv narcotic today with the hopes of transitioning to orals tomorrow, and hopefully discharge tomorrow. stent removal in office next week perhaps Sunday. We will call her to arrange. Migraine- severe yesterday- resolved today bloody emesis- resolved. coumadin on hold.
[2017-06-22 09:35] LABS: HEMATOCRIT 37.4 % (37-47); HEMOGLOBIN 13.3 g/dL (12.0-16.0)
[2017-06-22 09:43] LABS: INR 2.3 (0.9-1.1)
--- NOTE | 2017-06-22 12:53 | Gastrointestinal Consultation ---
Gastrointestinal Consultation Date of Consultation: Jun 22, 2017 Attending Physician: Beatriz Man Consulting Physician: Richi Mcnamara Reason for Consultation: Hematemesis. History of Present Illness Patient is a 46 year old female seen for hematemesis. She was admitted with urolithiasis s/p cystoscopy w lithotripsy, L stone extraction and L ureteral stent placement. She had been having n/v since prior to admission. Reports having lower pelvic abd pain and continued n/v after her procedure. Yesterday had multiple episodes of vomiting, then a one time episode of coffee ground looking emesis w some dark red clots. Volume about 150ml. She was treated w Zofran, Phenergan and Fentanyl, felt a bit better. This AM still nauseated but no vomiting. She is kept NPO. Noted Hgb dropped from 15 to 12 but stable since yesterday. KUB showed non obstructive bowel gas pattern but she has moderate amt of stool in colon. L ureteral stone no longer visualized. Double J ureteral stent in place. Of noted she has Factor V Leiden deficiency, been on Coumadin. INR 2.3 Past Medical/Surgical History Medical Problems: (1) Asthma, Unspecified Status: Chronic (2) Bipolar Disorder, Unspecified Status: Chronic (3) Coagulopathy Status: Acute (4) Common Migraine W/O Intractable Migraine Status: Chronic (5) DVT (deep venous thrombosis) Status: Acute (6) Epilepsy, Unsp, Not Intractable, Without Status Epilepticus Status: Chronic (7) Episode of heavy vaginal bleeding Status: Acute (8) Factor V Leiden Status: Chronic (9) Failure of outpatient treatment Status: Acute (10) Hypokalemia Status: Acute (11) Left leg DVT Status: Acute (12) Left leg DVT Status: Acute (13) Left leg pain Status: Acute (14) Left ureteral calculus Status: Acute (15) Left ureteral calculus Status: Acute (16) Vial Gauger (Current) Use Of 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 Status: Chronic (17) Lower abdominal pain Status: Acute (18) On anticoagulant therapy Status: Acute (19) Pelvic cramping Status: Acute (20) PID (acute pelvic inflammatory disease) Status: Acute (21) Right ankle sprain Status: Acute (22) Right-sided chest pain Status: Acute (23) Shortness of breath Status: Acute (24) Shortness of breath Status: Acute Past Medical History: (1) Anticoagulated on warfarin Status: Chronic (2) Asthma, Unspecified Status: Chronic (3) Bipolar Disorder, Unspecified Status: Chronic (4) Common Migraine W/O Intractable Migraine Status: Chronic (5) Depression Status: Chronic (6) DVT of lower extremity (deep venous thrombosis) Status: Resolved (7) Epilepsy, Unsp, Not Intractable, Without Status Epilepticus Status: Chronic (8) Factor V Leiden Status: Chronic (9) Factor V Leiden Status: Resolved (10) GI bleed Status: Resolved (11) Kidney stone Status: Resolved (12) Senior Living (Current) Use Of 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 Status: Chronic (13) Multiple pulmonary emboli Status: Resolved (14) Right leg pain Status: Resolved (15) Seizure Status: Chronic (16) Tobacco abuse Status: Chronic Past Surgical History: Surgical Problems: (1) H/O tubal ligation Status: Chronic (2) History of cholecystectomy Status: Chronic (3) Hx of tonsillectomy Status: Chronic (4) Tubal Ligation Status Status: Resolved Family History FH: cancer FH: multiple sclerosis MOTHER Gallbladder disease Kidney disease Kidney stones Social History Smoking Status: Current Every Day Smoker Alcohol Use: none Drug Use: none Marital Status: (reports being on the brink of divorce), other (soon to be ) Housing Status: lives with family 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) Allergies Coded Allergies: Kiwi (Verified Allergy, Severe, ANAPHYLAXIS, 06/20/17) NUTS (Verified Allergy, Severe, ANAPHYLAXIS, 06/20/17) Metronidazole (Verified Allergy, Intermediate, hives, 06/20/17) Morphine (Verified Allergy, Intermediate, chest pain; trouble breathing, 06/20/17) Peanut (Verified Allergy, Unknown, 06/20/17) Prochlorperazine (Verified Allergy, Unknown, SEVERE ALLERGIC RXN, 06/20/17 ) Current Medications Home Meds and Scripts Medications Dose Route/Sig Max Daily Dose Days Date Category Dose Instructions Ativan (Lorazepam) 0.5 Mg Tab 0.5 Mg PO TID PRN 06/20/17 Reported Prazosin (Prazosin HCl) 1 Mg Cap 1 Mg PO HS 06/20/17 Reported Motrin (Ibuprofen) 600 Mg Tab 600 Mg PO DIRECTED PRN 06/20/17 Reported Trintellix (Vortioxetine HBr) 20 Mg Tab 20 Mg PO DAILY 06/19/17 Reported [place] 5MG/325MG (Acetaminophen/Hydrocodone Bitart) Tab 1 Tablet PO TID PRN 05/03/17 Reported PRN PAIN Prilosec (Omeprazole) 40 Mg Cap 40 Mg PO DAILY 02/19/17 Reported Sumatriptan Succinate 50 Mg Tab 50 Mg PO UD PRN 08/02/16 Reported TAKE ONE TABLET AT ONSET OF MIGRAINE, MAY REPEAT AFTER 2 HOURS IF NEEDED. MAXIMUM 4 TABLETS A DAY. Ventolin Hfa (Albuterol) 200 Puffs/70483 Mcg Aers 2 Puffs INH QID PRN 07/25/16 Reported Coumadin (Warfarin Sodium) 5 Mg Tab 5 Mg PO DAILY 03/20/14 Reported Topamax (Topiramate) 200 Mg Tab 200 Mg PO BID 06/23/13 Reported Review of Systems Constitutional: No fever, No chills Respiratory: No cough, No shortness of breath Abdomen: + see HPI, + pain (lower pelvic regions), + nausea, + vomiting, + GI bleeding Physical Exam Date Time Temp Pulse Resp B/P (MAP) Pulse Ox O2 Delivery O2 Flow Rate FiO2 06/22/17 12:00 Room Air 06/22/17 11:17 37.0 74 20 118/72 (87) 94 Room Air 06/22/17 08:00 Room Air 06/22/17 07:00 37.7 86 18 104/66 (79) 97 Room Air 06/22/17 03:47 37.1 75 17 106/71 (83) 96 Room Air 06/22/17 00:50 76 18 118/75 (89) 96 06/21/17 23:59 98 Room Air 06/21/17 23:51 36.7 75 17 121/81 (94) 97 Room Air 06/21/17 23:21 74 18 106/57 (73) 96 06/21/17 22:45 93 20 135/80 (98) 98 Nasal Cannula 4.0 06/21/17 22:30 84 20 123/80 (94) 98 Nasal Cannula 4.0 06/21/17 22:15 86 20 116/79 (91) 97 Nasal Cannula 4.0 06/21/17 22:00 90 20 113/76 (88) 98 Nasal Cannula 4.0 06/21/17 21:45 36.6 97 20 146/83 (104) 97 Nasal Cannula 4.0 06/21/17 21:03 36.4 101 25 136/91 (106) 97 Room Air 06/21/17 21:00 105 20 127/78 (94) 98 Nasal Cannula 4.0 06/21/17 20:30 99 19 105/77 99 Nasal Cannula 4 06/21/17 20:20 36.1 97 20 119/75 97 Nasal Cannula 4 06/21/17 20:10 96 12 114/79 97 Nasal Cannula 4 06/21/17 20:00 96 13 130/88 97 Nasal Cannula 4 06/21/17 19:50 99 22 116/101 96 Nasal Cannula 4 06/21/17 19:40 94 16 131/82 97 Nasal Cannula 4 06/21/17 19:30 97 13 131/86 96 Nasal Cannula 4 06/21/17 19:20 100 15 122/82 96 Nasal Cannula 4 06/21/17 19:10 105 19 136/71 96 Nasal Cannula 4 06/21/17 19:04 36.0 104 28 143/64 96 Nasal Cannula 4 06/21/17 15:45 Room Air 06/21/17 15:03 36.9 71 18 86/56 (66) 95 Room Air General Appearance: + mild distress (c/o nausea, pelvic pain ) Eyes: normal inspection, PERRL, EOMI Neck: supple, no JVD, trachea midline Respiratory/Chest: normal breath sounds, no respiratory distress, no accessory muscle use Cardiovascular: regular rate, rhythm, no gallop, no murmur Abdomen: soft, + abnormal bowel sounds (hypoactive ), + tenderness (mid abd ) Extremities: normal inspection, no pedal edema, no calf tenderness 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: alert, normal mood/affect, oriented x 3 Skin: normal color, no jaundice, no rash Laboratory Results Last 24 Hours Test 06/21/17 22:20 06/22/17 01:58 06/22/17 09:22 Hemoglobin 12.9 g/dL 12.9 g/dL 13.3 g/dL Hematocrit 36.9 % 36.6 % 37.4 % Prothrombin Time 23.6 SECONDS Prothromb Time International Ratio 2.3 Impression Patient is a 46 year old female L urolithiasis s/p lithotripsy, L ureteral stone extraction w ureteral stent placement. She had been having n/v even prior to her procedure, continued to have symptoms afterwards. Had several episodes of vomiting yesterday and one time had dark red clots w coffee ground materials in her vomitus. Hgb dropped from baseline but not anemic and values is stable since yesterday. Plan - Suspect likely has Peg Snyder tear. But bleeding may have stopped now given stable blood ct and no more emesis. Thus will defer endoscopic evaluation. - Monitor H/H and transfuse prn - PPI gtt, may convert to IV BID form by tomorrow if no more s/s of GI bleeding. - NPO except sips and chips; advance to CL by end of day if no more n/v - Symptomatic management w antiemetics and analgesics per primary team. - Will watch peripherally, call if any questions/concerns over the weekend. ATTESTATION: I have performed a history and physical examination of this patient and reviewed the electronic record. Specifically, on physical examination there is mild abdominal tenderness. I have discussed the case with SERGEI Wade. The above note reflects my findings, conclusions, and recommendations. Richi Mcnamara MD
[2017-06-22 14:33] LABS: HEMOGLOBIN 13.1 g/dL (12.0-16.0)
--- NOTE | 2017-06-22 16:18 | Progress Note ---
Medicine Progress Note Date & Time of Visit: Jun 22, 2017 at 16:08. Subjective 46 yo F with h/o nephrolithiasis treated surgically and chronic narcotic use presents with L flank pain that is progressively worsened 2/2 5mm obstructing L ureteral stone. She had a migraine requiring two doses of SQ Imitrex. She was initially managed with a dilaudid pump and then was switched to PRN Dilaudid IV post-operatively. She underwent cystoscopy overnight with L ureteral stent placement and stone removal complicated by acute urinary retention requiring Arias placement. Overnight she also had 3 episodes of hematemesis. GI was consulted and she was placed on a PPI drip, made NPO and coumadin was not reversed. This morning she reports persistent L flank pain and a sore throat and overall continues to require dilaudid and nausea medications consistently. She reports feeling like she could tolerate some jello. She agrees that her sore throat is most likely from the stomach acid related to her vomiting. She denies headache. Objective Last 8 Hrs Date Time Temp Pulse Resp B/P (MAP) Pulse Ox O2 Delivery O2 Flow Rate FiO2 06/22/17 14:57 37.0 67 18 99/62 (74) 94 Room Air 06/22/17 12:00 Room Air 06/22/17 11:17 37.0 74 20 118/72 (87) 94 Room Air Physical Exam: GEN: WNWD, in no acute distress but is having difficulty sitting up or moving around in general because of how badly she feels HEENT: NC/AT, MMM CARDIO: reg rate, S1/2 heard without m/g/r LUNGS: CTA bilaterally, no crackles, rales or wheezes, good diaphragmatic excursion ABD: soft, TTP in RLQ and LLQ, non-distended, +BS, +CVA tenderness on L side EXTREMITY: no LE swelling or edema, extremities are warm and well-perfused SKIN: warm and dry Laboratory Results: 06/20/17 05:10 Red Blood Count 4.44, Mean Corpuscular Volume 94.8, Mean Corpuscular Hemoglobin 33.8, Mean Corpuscular Hemoglobin Concent 35.6, Mean Platelet Volume 10.2, Neutrophils (%) (Auto) 48.9, Lymphocytes (%) (Auto) 39.2, Monocytes (%) (Auto) 7.5, Eosinophils (%) (Auto) 3.4, Basophils (%) (Auto) 0.6, Neutrophils # (Auto) 2.28, Lymphocytes # (Auto) 1.83, Monocytes # (Auto) 0.35, Eosinophils # (Auto) 0.16, Basophils # (Auto) 0.03 06/22/17 14:04 06/21/17 05:37 Test 06/20/17 05:10 06/21/17 00:00 06/21/17 05:37 06/22/17 09:22 White Blood Count 4.67 K/uL (4.8-10.8) Red Blood Count 4.44 M/uL (4.2-5.4) Hemoglobin 15.0 g/dL (12.0-16.0) Hematocrit 42.1 % (37-47) Mean Corpuscular Volume 94.8 fL (80-100) Mean Corpuscular Hemoglobin 33.8 pg (25-34) Mean Corpuscular Hemoglobin Concent 35.6 g/dl (32-36) Platelet Count 164 K/uL (130-400) Mean Platelet Volume 10.2 fL (7.4-10.4) Neutrophils (%) (Auto) 48.9 % Lymphocytes (%) (Auto) 39.2 % Monocytes (%) (Auto) 7.5 % Eosinophils (%) (Auto) 3.4 % Basophils (%) (Auto) 0.6 % Neutrophils # (Auto) 2.28 K/uL (1.4-6.5) Lymphocytes # (Auto) 1.83 K/uL (1.2-3.4) Monocytes # (Auto) 0.35 K/uL (0.11-0.59) Eosinophils # (Auto) 0.16 K/uL (0-0.5) Basophils # (Auto) 0.03 K/uL (0-0.2) RDW Standard Deviation 43.5 fL (36.4-46.3) RDW Coefficient of Variation 12.6 % (11.5-14.5) Immature Granulocyte % (Auto) 0.4 % Immature Granulocyte # (Auto) 0.02 K/uL (0.00-0.02) Urine Color YELLOW Urine Appearance TURBID (CLEAR) Urine pH 8.0 (4.5-7.5) Urine Specific [place] 1.017 (1.000-1.030) Urine Protein NEG (NEG) Urine Glucose (UA) NEG (NEG) Urine Ketones NEG (NEG) Urine Occult Blood NEG (NEG) Urine Nitrite NEG (NEG) Urine Bilirubin NEG (NEG) Urine Urobilinogen NEG (NEG) Urine Leukocyte Esterase NEG (NEG) Urine WBC (Auto) 1-5 /hpf (0-5) Urine RBC (Auto) 0-4 /hpf (0-4) Urine Hyaline Casts (Auto) 1-5 /lpf (0-5) Urine Epithelial Cells (Auto) 10-20 /lpf (0-5) Urine Bacteria (Auto) NEG (NEG) Urine Test NEG (NEG) Anion Gap 5.0 mmol/L (3-11) Est Creatinine Clear Calc Drug Dose 72.6 ml/min Estimated GFR () 90.1 Estimated GFR (Non- 77.8 BUN/Creatinine Ratio 16.3 (10-20) Calcium Level 8.0 mg/dl (8.5-10.1) Magnesium Level 2.0 mg/dl (1.8-2.4) Prothrombin Time 23.6 SECONDS (9.0-12.0) Prothromb Time International Ratio 2.3 (0.9-1.1) Last 24 Hours Test 06/21/17 22:20 06/22/17 01:58 06/22/17 09:22 06/22/17 14:04 Hemoglobin 12.9 g/dL 12.9 g/dL 13.3 g/dL 13.1 g/dL Hematocrit 36.9 % 36.6 % 37.4 % 37.0 % Prothrombin Time 23.6 SECONDS Prothromb Time International Ratio 2.3 Diagnostic Imaging: KUB CLINICAL HISTORY: r/o ileus, obstruction COMPARISON STUDY: CT of the abdomen and pelvis June 19, 2017. FINDINGS: A left double-J ureteral stent is in place. Stent is appropriately positioned. The distal left ureteral calculus shown on CT of June 19, 2017 is not visualized on this exam. A left renal calculus shown on prior CT is not visualized on this study, possibly due to technique. The bowel gas pattern is normal. There is a moderate amount of stool within the colon and rectum. IMPRESSION: 1. No evidence for a bowel obstruction. Normal bowel gas pattern. 2. Moderate amount of stool within the colon and rectum. 3. Double-J left ureteral stent in place. Distal left ureteral calculus shown on prior CT is not visualized on this exam. Assessment & Plan 46 yo F with h/o nephrolithiasis treated surgically and chronic narcotic use presents with L flank pain that is progressively worsened 2/2 5mm obstructing L ureteral stone. She had a migraine requiring two doses of SQ Imitrex. She was initially managed with a dilaudid pump and then was switched to PRN Dilaudid IV post-operatively. She underwent cystoscopy overnight with L ureteral stent placement and stone removal complicated by acute urinary retention requiring Arias placement. Overnight she also had 3 episodes of hematemesis. GI was consulted and she was placed on a PPI drip, made NPO and coumadin was not reversed. This morning she reports persistent L flank pain and a sore throat and overall continues to require dilaudid and nausea medications consistently. She reports feeling like she could tolerate some jello. She agrees that her sore throat is most likely from the stomach acid related to her vomiting. She denies headache. 1. Ureteral colic 2/2 distal obstructing stone. L ureteral and kidney stone removed last night with stent placement. Pt denies any improvement in pain. 2. Acute urinary retention-Arias placed post-operatively. Will defer to Urology for further management. 3. Hematemesis-? GI bleed in the past, therapeutic on her coumadin. Last vomiting was 0300 and hasn't had anything further today. PPI drip was started and GI saw her and is deferring endoscopy at this time. Monitoring on PPI drip. No coumadin reversal unless decompensation. Trending H/H. Advancing diet to clears this evening. 4. Depression-continues on Trintellix and Xanax PRN 5. Factor V Leiden-on chronic coumadin. INR 2/6 this morning. Coumadin on hold. 6. Seizure disorder-continues on Topamax. Pt reports being seizure-free for the past 10 years. DVT proph-Coumadin Full Code Dispo-med/surg. Likely hospitalized through the weekend. Need plan from GI regarding hematemesis and need good post-op pain control prior to going home. Beatriz Man DO [facility] Hospitalist Consultants: Urology-Dr. Thompson Current Inpatient Medications: Current Inpatient Medications Medications (Trade) Dose Ordered Sig/[place] Route Start Time Stop Time Status Last Admin Dose Admin Acetaminophen (Tylenol Tab) 650 mg Q4H PRN PO 06/20/17 06:45 07/20/17 06:44 Ondansetron HCl (Zofran Inj) 4 mg Q6H PRN IV 06/20/17 06:45 07/20/17 06:44 06/22/17 15:04 4 MG Miscellaneous (Iv Fluids Completed) 1 ea PRN PRN N/A 06/20/17 07:00 06/20/18 06:59 Sodium Chloride 1,000 ml @ 125 mls/hr Q8H IV 06/20/17 16:00 07/20/17 15:59 06/22/17 15:05 125 MLS/HR Naloxone HCl (Narcan Inj) 0.1 mg Q5M PRN IV 06/20/17 09:15 07/20/17 09:14 Docusate Sodium (coLACE CAP) 100 mg BID PO 06/20/17 21:00 07/20/17 20:59 06/20/17 21:16 100 MG Sodium Chloride 1,000 ml @ 15 mls/hr Q24H IV 06/20/17 09:01 07/20/17 09:00 Polyethylene (Miralax Powder Packet) 17 gm DAILY PRN PO 06/20/17 09:15 07/20/17 09:14 Albuterol (Ventolin Hfa Inhaler) 2 puffs QID PRN INH 06/20/17 09:30 07/20/17 09:29 Topiramate (Topamax Tab) 200 mg BID PO 06/20/17 09:30 07/20/17 09:29 06/21/17 08:50 200 MG Miscellaneous Information (Order Awaiting Action) 1 ea QS N/A 06/20/17 16:00 07/20/17 15:59 Tamsulosin HCl (Flomax Cap) 0.4 mg QAM PO 06/20/17 09:30 07/20/17 09:29 06/21/17 08:50 0.4 MG Prazosin HCl (Prazosin) 1 mg HS PO 06/20/17 21:00 07/20/17 20:59 06/20/17 21:16 1 MG Alprazolam (Xanax Tab) 0.25 mg HS PRN PO 06/20/17 22:00 07/20/17 21:59 06/20/17 22:05 0.25 MG Promethazine HCl 12.5 mg/Sodium Chloride 50.5 ml @ 202 mls/hr Q6H PRN IV 06/21/17 19:00 07/21/17 18:59 06/22/17 10:12 202 MLS/HR Pantoprazole Sodium 40 mg/ Dextrose 100 ml @ 20 mls/hr Q5H IV 06/21/17 21:00 07/21/17 20:59 06/22/17 15:50 20 MLS/HR Hydromorphone HCl (Dilaudid Inj) 0.5 mg Q4H PRN IV 06/21/17 21:30 07/05/17 21:29 06/22/17 15:04 0.5 MG
[2017-06-22] MEDS: ALPRAZOLAM 0.25 MG TAB PO PRN (17:45)
[2017-06-22] MEDS: PRAZOSIN HCL 1 MG CAP PO SCH (20:04)
[2017-06-23] VITALS (10 sets, daily range): BP systolic 84–112; BP diastolic 52–74; PULSE 60–87; TEMP 36.3–37.1; O2SAT 96–98
[2017-06-23] MEDS: HYDROmorphone INJ 0.5 MG/0.5 ML SYR IV PRN ×6 (00:15→22:34)
[2017-06-23] MEDS: ONDANSETRON INJ 2 MG/ML 2 ML VIAL IV PRN (00:15)
[2017-06-23] MEDS: PANTOprazole INJ 40 MG in DEXTROSE 5% 100ML IV SCH ×3 (01:52→13:32)
[2017-06-23 06:34] LABS: HEMATOCRIT 37.7 % (37-47); HEMOGLOBIN 13.1 g/dL (12.0-16.0); MEAN CELL VOLUME 95.4 fL (80-100); MEAN CORPUSCULAR HEMOGLOBIN 33.2 pg (25-34); MEAN CORPUSCULAR HGB CONC 34.7 g/dl (32-36); MEAN PLATELET VOLUME 10.6 fL (7.4-10.4); PLATELET COUNT 124 K/uL (130-400); RED CELL DISTRIBUTION WIDTH CV 12.6 % (11.5-14.5); RED CELL DISTRIBUTION WIDTH SD 43.8 fL (36.4-46.3); WHITE BLOOD COUNT 4.74 K/uL (4.8-10.8)
[2017-06-23 07:08] LABS: INR 1.7 (0.9-1.1)
[2017-06-23 07:17] LABS: CALCIUM 7.5 mg/dl (8.5-10.1); CREATININE 0.73 mg/dl (0.60-1.20); POTASSIUM 3.2 mmol/L (3.5-5.1)
[2017-06-23] MEDS: SODIUM CHLORIDE 0.9% 1000ML 1,000 ML IV SCH ×3 (07:45→14:46)
[2017-06-23] MEDS: TAMSULOSIN HCL 0.4 MG CAP PO SCH (07:48)
[2017-06-23] MEDS: DOCUSATE SODIUM 100 MG CAP PO SCH ×2 (07:48→21:10)
[2017-06-23] MEDS ORDERED: POTASSIUM CHLORIDE 20 MEQ TABCR PO ONE (08:30)
[2017-06-23] MEDS: TOPIRAMATE 100 MG TAB PO SCH ×2 (09:21→21:11)
--- NOTE | 2017-06-23 10:04 | Progress Note ---
Subjective Date of Service: Jun 23, 2017. Subjective Voiding: smith catheter in place Pt doing well. Continues to require IV pain meds for abd pain. Dilaudid q4 hours. Urine clearing. Migraine improved. Occ nausea. Problem List Medical Problems: (1) Asthma, Unspecified Status: Chronic (2) Bipolar Disorder, Unspecified Status: Chronic (3) Coagulopathy Status: Acute (4) Common Migraine W/O Intractable Migraine Status: Chronic (5) DVT (deep venous thrombosis) Status: Acute (6) Epilepsy, Unsp, Not Intractable, Without Status Epilepticus Status: Chronic (7) Episode of heavy vaginal bleeding Status: Acute (8) Factor V Leiden Status: Chronic (9) Failure of outpatient treatment Status: Acute (10) Hypokalemia Status: Acute (11) Left leg DVT Status: Acute (12) Left leg DVT Status: Acute (13) Left leg pain Status: Acute (14) Left ureteral calculus Status: Acute (15) Left ureteral calculus Status: Acute (16) [employer] (Current) Use Of 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 Status: Chronic (17) Lower abdominal pain Status: Acute (18) On anticoagulant therapy Status: Acute (19) Pelvic cramping Status: Acute (20) PID (acute pelvic inflammatory disease) Status: Acute (21) Right ankle sprain Status: Acute (22) Right-sided chest pain Status: Acute (23) Shortness of breath Status: Acute (24) Shortness of breath Status: Acute Review of Systems Abdomen: + nausea Female : + problem reported All Other Systems: Reviewed and Negative Objective Vital Signs Date Time Temp Pulse Resp B/P (MAP) Pulse Ox O2 Delivery O2 Flow Rate FiO2 06/23/17 08:00 Room Air 06/23/17 07:42 37.0 72 18 103/65 (78) 96 Room Air 06/23/17 04:51 37.1 76 18 97/63 (74) 96 Room Air 06/23/17 04:00 Room Air 06/23/17 00:01 Room Air 06/22/17 23:59 36.9 68 16 96/61 (73) 95 Room Air 06/22/17 20:00 Room Air 06/22/17 19:32 36.9 67 18 103/68 (80) 95 Room Air 06/22/17 16:00 Room Air 06/22/17 14:57 37.0 67 18 99/62 (74) 94 Room Air 06/22/17 12:00 Room Air 06/22/17 11:17 37.0 74 20 118/72 (87) 94 Room Air Physical Exam General Appearance: WD/WN Abdomen: + tenderness Comments: Urine clear Laboratory Results Last 24 Hours Test 06/22/17 14:04 06/23/17 05:58 Hemoglobin 13.1 g/dL 13.1 g/dL Hematocrit 37.0 % 37.7 % White Blood Count 4.74 K/uL Red Blood Count 3.95 M/uL Mean Corpuscular Volume 95.4 fL Mean Corpuscular Hemoglobin 33.2 pg Mean Corpuscular Hemoglobin Concent 34.7 g/dl RDW Standard Deviation 43.8 fL RDW Coefficient of Variation 12.6 % Platelet Count 124 K/uL Mean Platelet Volume 10.6 fL Prothrombin Time 17.3 SECONDS Prothromb Time International Ratio 1.7 Sodium Level 144 mmol/L Potassium Level 3.2 mmol/L Chloride Level 114 mmol/L Carbon Dioxide Level 23 mmol/L Anion Gap 7.0 mmol/L Blood Urea Nitrogen 6 mg/dl Creatinine 0.73 mg/dl Est Creatinine Clear Calc Drug Dose 92.6 ml/min Estimated GFR () 116.1 Estimated GFR (Non- 100.2 BUN/Creatinine Ratio 8.2 Random Glucose 89 mg/dl Calcium Level 7.5 mg/dl Magnesium Level 2.0 mg/dl Assessment and Plan (1) Urolithiasis (2) Incomplete emptying of bladder Continues to have pain. Not unexpected given her baseline pain issues. Rec DC smith today. Check PVR in 8 hours if she has not voided. If bladder scan >350cc, then replace smith. Pain control. Anti-emetics.
--- NOTE | 2017-06-23 15:07 | Progress Note ---
Medicine Progress Note Date & Time of Visit: Jun 23, 2017 at 14:58. Subjective 46 yo F with h/o nephrolithiasis treated surgically and chronic narcotic use presented with L flank pain 2/2 5mm obstructing L ureteral stone. She had a migraine requiring two doses of SQ Imitrex. She was initially managed with a dilaudid pump and then was switched to PRN Dilaudid IV post-operatively. She underwent cystoscopy with L ureteral stent placement and stone removal complicated by acute urinary retention requiring Arias placement. Overnight she also had 3 episodes of hematemesis. GI was consulted and she was placed on a PPI drip, made NPO and coumadin was not reversed. Her blood counts remained stable and she was hemodynamically stable so the PPI was switched to Protonix BID and her diet was advanced. She is tolerating regular food today and reports no headache, fevers, chills. She is reporting severe pain with urination that begins just before she starts to urinate and takes 30 minutes to spontaneously resolve. She reports persistent L flank and LLQ pain. She is ambulating and denies lightheadedness. Objective Last 8 Hrs Date Time Temp Pulse Resp B/P (MAP) Pulse Ox O2 Delivery O2 Flow Rate FiO2 06/23/17 12:00 Room Air 06/23/17 11:33 36.6 60 18 112/74 (87) 98 Room Air 06/23/17 08:00 Room Air 06/23/17 07:42 37.0 72 18 103/65 (78) 96 Room Air Physical Exam: GEN: WNWD, in no acute distress but is having difficulty sitting up or moving around in general because of how badly she feels HEENT: NC/AT, MMM CARDIO: reg rate, S1/2 heard without m/g/r LUNGS: CTA bilaterally, no crackles, rales or wheezes, good diaphragmatic excursion ABD: soft, TTP in LLQ, non-distended, +BS, +CVA tenderness on L side EXTREMITY: no LE swelling or edema, extremities are warm and well-perfused SKIN: warm and dry Laboratory Results: 06/23/17 05:58 06/23/17 05:58 Test 06/20/17 05:10 06/21/17 00:00 06/23/17 05:58 Immature Granulocyte % (Auto) 0.4 % White Blood Count 4.67 K/uL (4.8-10.8) Red Blood Count 4.44 M/uL (4.2-5.4) 3.95 M/uL (4.2-5.4) Hemoglobin 15.0 g/dL (12.0-16.0) Hematocrit 42.1 % (37-47) Mean Corpuscular Volume 94.8 fL (80-100) 95.4 fL (80-100) Mean Corpuscular Hemoglobin 33.8 pg (25-34) 33.2 pg (25-34) Mean Corpuscular Hemoglobin Concent 35.6 g/dl (32-36) 34.7 g/dl (32-36) Platelet Count 164 K/uL (130-400) Mean Platelet Volume 10.2 fL (7.4-10.4) 10.6 fL (7.4-10.4) Neutrophils (%) (Auto) 48.9 % Lymphocytes (%) (Auto) 39.2 % Monocytes (%) (Auto) 7.5 % Eosinophils (%) (Auto) 3.4 % Basophils (%) (Auto) 0.6 % Neutrophils # (Auto) 2.28 K/uL (1.4-6.5) Lymphocytes # (Auto) 1.83 K/uL (1.2-3.4) Monocytes # (Auto) 0.35 K/uL (0.11-0.59) Eosinophils # (Auto) 0.16 K/uL (0-0.5) Basophils # (Auto) 0.03 K/uL (0-0.2) Immature Granulocyte # (Auto) 0.02 K/uL (0.00-0.02) Urine Color YELLOW Urine Appearance TURBID (CLEAR) Urine pH 8.0 (4.5-7.5) Urine Specific [place] 1.017 (1.000-1.030) Urine Protein NEG (NEG) Urine Glucose (UA) NEG (NEG) Urine Ketones NEG (NEG) Urine Occult Blood NEG (NEG) Urine Nitrite NEG (NEG) Urine Bilirubin NEG (NEG) Urine Urobilinogen NEG (NEG) Urine Leukocyte Esterase NEG (NEG) Urine WBC (Auto) 1-5 /hpf (0-5) Urine RBC (Auto) 0-4 /hpf (0-4) Urine Hyaline Casts (Auto) 1-5 /lpf (0-5) Urine Epithelial Cells (Auto) 10-20 /lpf (0-5) Urine Bacteria (Auto) NEG (NEG) Urine Test NEG (NEG) RDW Standard Deviation 43.8 fL (36.4-46.3) RDW Coefficient of Variation 12.6 % (11.5-14.5) Prothrombin Time 17.3 SECONDS (9.0-12.0) Prothromb Time International Ratio 1.7 (0.9-1.1) Anion Gap 7.0 mmol/L (3-11) Est Creatinine Clear Calc Drug Dose 92.6 ml/min Estimated GFR () 116.1 Estimated GFR (Non- 100.2 BUN/Creatinine Ratio 8.2 (10-20) Calcium Level 7.5 mg/dl (8.5-10.1) Magnesium Level 2.0 mg/dl (1.8-2.4) Last 24 Hours Test 06/23/17 05:58 White Blood Count 4.74 K/uL Red Blood Count 3.95 M/uL Hemoglobin 13.1 g/dL Hematocrit 37.7 % Mean Corpuscular Volume 95.4 fL Mean Corpuscular Hemoglobin 33.2 pg Mean Corpuscular Hemoglobin Concent 34.7 g/dl RDW Standard Deviation 43.8 fL RDW Coefficient of Variation 12.6 % Platelet Count 124 K/uL Mean Platelet Volume 10.6 fL Prothrombin Time 17.3 SECONDS Prothromb Time International Ratio 1.7 Sodium Level 144 mmol/L Potassium Level 3.2 mmol/L Chloride Level 114 mmol/L Carbon Dioxide Level 23 mmol/L Anion Gap 7.0 mmol/L Blood Urea Nitrogen 6 mg/dl Creatinine 0.73 mg/dl Est Creatinine Clear Calc Drug Dose 92.6 ml/min Estimated GFR () 116.1 Estimated GFR (Non- 100.2 BUN/Creatinine Ratio 8.2 Random Glucose 89 mg/dl Calcium Level 7.5 mg/dl Magnesium Level 2.0 mg/dl Assessment & Plan 46 yo F with h/o nephrolithiasis treated surgically and chronic narcotic use presented with L flank pain 2/2 5mm obstructing L ureteral stone. She had a migraine requiring two doses of SQ Imitrex. She was initially managed with a dilaudid pump and then was switched to PRN Dilaudid IV post-operatively. She underwent cystoscopy with L ureteral stent placement and stone removal complicated by acute urinary retention requiring Arias placement. Overnight she also had 3 episodes of hematemesis. GI was consulted and she was placed on a PPI drip, made NPO and coumadin was not reversed. Her blood counts remained stable and she was hemodynamically stable so the PPI was switched to Protonix BID and her diet was advanced. She is tolerating regular food today and reports no headache, fevers, chills. She is reporting severe pain with urination that begins just before she starts to urinate and takes 30 minutes to spontaneously resolve. She reports persistent L flank and LLQ pain. She is ambulating and denies lightheadedness. 1. Ureteral colic 2/2 distal obstructing stone s/p L ureteral stent. Pt denies any improvement in pain but clinically is improved on exam. She is still requiring dilaudid PRN. Will restart her scheduled home PO narcotic and use the dilaudid for breakthrough. For complicated post-op pain course, have consulted Pain Management for assistance. 2. Acute urinary retention-Arias placed post-operatively which was removed today. She has been urinating spontaneously 3. Hematemesis likely 2/2 dieudonne Snyder tear in setting of prior vomiting. No drop in H/H. Tolerating PO. Stop PPI drip. Protonix 40mg PO BID. F/u with GI as outpatient. Restarted coumadin. 4. Depression-continues on Trintellix and Xanax PRN 5. Factor V Leiden-on chronic coumadin. INR 1.7 this morning. Coumadin restarted. 6. Seizure disorder-continues on Topamax. Pt reports being seizure-free for the past 10 years. 7. Hypokalemia-replaced PO. DVT proph-Coumadin Full Code Dispo-med/surg. Likely hospitalized through the weekend. Needs good pain control prior to going home. Beatriz Man DO [facility] Hospitalist Consultants: Urology-Dr. Thompson Current Inpatient Medications: Current Inpatient Medications Medications (Trade) Dose Ordered Sig/Cassy Route Start Time Stop Time Status Last Admin Dose Admin Acetaminophen (Tylenol Tab) 650 mg Q4H PRN PO 06/20/17 06:45 07/20/17 06:44 Ondansetron HCl (Zofran Inj) 4 mg Q6H PRN IV 06/20/17 06:45 07/20/17 06:44 06/23/17 00:15 4 MG Miscellaneous (Iv Fluids Completed) 1 ea PRN PRN N/A 06/20/17 07:00 06/20/18 06:59 Sodium Chloride 1,000 ml @ 125 mls/hr Q8H IV 06/20/17 16:00 07/20/17 15:59 06/23/17 07:45 125 MLS/HR Naloxone HCl (Narcan Inj) 0.1 mg Q5M PRN IV 06/20/17 09:15 07/20/17 09:14 Docusate Sodium (coLACE CAP) 100 mg BID PO 06/20/17 21:00 07/20/17 20:59 06/23/17 07:48 100 MG Sodium Chloride 1,000 ml @ 15 mls/hr Q24H IV 06/20/17 09:01 07/20/17 09:00 Polyethylene (Miralax Powder Packet) 17 gm DAILY PRN PO 06/20/17 09:15 07/20/17 09:14 Albuterol (Ventolin Hfa Inhaler) 2 puffs QID PRN INH 06/20/17 09:30 07/20/17 09:29 Topiramate (Topamax Tab) 200 mg BID PO 06/20/17 09:30 07/20/17 09:29 06/23/17 09:21 200 MG Miscellaneous Information (Order Awaiting Action) 1 ea QS N/A 06/20/17 16:00 07/20/17 15:59 Tamsulosin HCl (Flomax Cap) 0.4 mg QAM PO 06/20/17 09:30 07/20/17 09:29 06/23/17 07:48 0.4 MG Prazosin HCl (Prazosin) 1 mg HS PO 06/20/17 21:00 07/20/17 20:59 06/22/17 20:04 1 MG Alprazolam (Xanax Tab) 0.25 mg HS PRN PO 06/20/17 22:00 07/20/17 21:59 06/22/17 17:45 0.25 MG Promethazine HCl 12.5 mg/Sodium Chloride 50.5 ml @ 202 mls/hr Q6H PRN IV 06/21/17 19:00 07/21/17 18:59 06/22/17 10:12 202 MLS/HR Hydromorphone HCl (Dilaudid Inj) 0.5 mg Q4H PRN IV 06/21/17 21:30 07/05/17 21:29 06/23/17 13:34 0.5 MG Phenazopyridine HCl (Pyridium Tab) 100 mg TID PO 06/23/17 15:00 07/23/17 14:59 UNV Warfarin Sodium (Coumadin Tab) 5 mg DAILY@16 PO 06/23/17 16:00 07/23/17 15:59 UNV Pantoprazole Sodium (Protonix Tab) 40 mg BID PO 06/23/17 21:00 07/23/17 20:59 UNV
[2017-06-23] MEDS: PHENAZOPYRIDINE HCL 100 MG TAB PO SCH ×2 (15:52→21:11)
[2017-06-23] MEDS: WARFARIN SOD 5 MG TAB PO SCH (15:53)
[2017-06-23] MEDS: PRAZOSIN HCL 1 MG CAP PO SCH (21:11)
[2017-06-23] MEDS: HYDROCODONE/ACETAMOPHEN 5/325MG TAB PO SCH (21:11)
[2017-06-23] MEDS: PANTOprazole SOD 40 MG TAB PO SCH (21:11)
[2017-06-24] MEDS: HYDROmorphone INJ 0.5 MG/0.5 ML SYR IV PRN ×2 (02:52→07:40)
[2017-06-24 07:16] VITALS: BP 108/69; PULSE 64; TEMP 36.6; O2SAT 95
[2017-06-24] MEDS: HYDROCODONE/ACETAMOPHEN 5/325MG TAB PO SCH (07:41)
[2017-06-24] MEDS: TOPIRAMATE 100 MG TAB PO SCH ×2 (07:44→20:49)
[2017-06-24] MEDS: DOCUSATE SODIUM 100 MG CAP PO SCH ×2 (07:44→20:49)
[2017-06-24] MEDS: PHENAZOPYRIDINE HCL 100 MG TAB PO SCH ×3 (07:44→20:49)
[2017-06-24] MEDS: PANTOprazole SOD 40 MG TAB PO SCH ×2 (07:45→20:49)
[2017-06-24 07:52] LABS: INR 1.9 (0.9-1.1)
[2017-06-24] MEDS: SODIUM CHLORIDE 0.9% 1000ML 1,000 ML IV SCH (09:01)
[2017-06-24] MEDS: PROMETHAZINE HCL 25 MG TAB PO PRN ×2 (09:50→22:32)
[2017-06-24] MEDS: TAMSULOSIN HCL 0.4 MG CAP PO SCH (09:50)
[2017-06-24] MEDS ORDERED: KETOROLAC TROMETHAMINE 30 MG/ML VIAL IV STA (11:44)
--- NOTE | 2017-06-24 12:51 | DIAGNOSTIC IMAGING REPORT ---
KUB CLINICAL HISTORY: persistent pain in L flank s/p ureteroscopy pain. Nausea. COMPARISON STUDY: 06/22/2017 FINDINGS: Left ureteral stent in good position. Nonobstructive bowel pattern. No abnormal calcifications. IMPRESSION: Good position left ureteral stent. Nonobstructive bowel pattern. No abnormal calcifications. The above report was generated using voice recognition software. It may contain grammatical, syntax or spelling errors. Electronically signed by: Mark Anthony Darling M.D. 06/24/2017 12:50 PM Dictated Date/Time: 06/24/2017 12:49 PM
--- NOTE | 2017-06-24 13:34 | DIAGNOSTIC IMAGING REPORT ---
(RENAL)RETROPERITON COMP HISTORY: Pain. L stent placed couple days ago, persit pain in L flank, ro hydro COMPARISON: 12/03/2014 FINDINGS: Right kidney: Maximum dimension 9.2 cm. No evidence for hydronephrosis. Normal corticomedullary differentiation and cortical thickness. Left kidney: Maximum dimension 9.6 cm. No evidence for hydronephrosis. Stent is identified in good position Normal corticomedullary differentiation and cortical thickness. Bladder: No bladder wall thickening. The bilateral ureteral jets were identified. IMPRESSION: Normal renal ultrasound. No evidence for hydronephrosis. Left ureteral stent in good position The above report was generated using voice recognition software. It may contain grammatical, syntax or spelling errors. Electronically signed by: Mark Anthony Darling M.D. 06/24/2017 1:32 PM Dictated Date/Time: 06/24/2017 1:31 PM
[2017-06-24] MEDS: HYDROmorphone HCL 2 MG TAB PO PRN ×2 (13:44→18:19)
[2017-06-24 14:36] VITALS: BP 90/57; PULSE 65; TEMP 36.8; O2SAT 94
[2017-06-24] MEDS: ONDANSETRON INJ 2 MG/ML 2 ML VIAL IV PRN (17:11)
[2017-06-24] MEDS: WARFARIN SOD 5 MG TAB PO SCH (17:41)
--- NOTE | 2017-06-24 18:11 | Progress Note ---
Subjective Date of Service: Jun 24, 2017. Subjective Voiding: no voiding problems Pt continues to have pain s/p Cysto, uscope, laser litho, and stent placement on 06/21/17 Dilaudid required to control pain Also taking pyridium, flomax, and toradol Has had nausea and vomitting as well KUB and DAKOTAH done today to eval stent position. These were normal. No hydro. Stent well positioned. Smith removed. Voiding on her own. Still having pain despite smith removal. Problem List Medical Problems: (1) Asthma, Unspecified Status: Chronic (2) Bipolar Disorder, Unspecified Status: Chronic (3) Coagulopathy Status: Acute (4) Common Migraine W/O Intractable Migraine Status: Chronic (5) DVT (deep venous thrombosis) Status: Acute (6) Epilepsy, Unsp, Not Intractable, Without Status Epilepticus Status: Chronic (7) Episode of heavy vaginal bleeding Status: Acute (8) Factor V Leiden Status: Chronic (9) Failure of outpatient treatment Status: Acute (10) Hypokalemia Status: Acute (11) Left leg DVT Status: Acute (12) Left leg DVT Status: Acute (13) Left leg pain Status: Acute (14) Left ureteral calculus Status: Acute (15) Left ureteral calculus Status: Acute (16) Bowling [employer] (Current) Use Of 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 Status: Chronic (17) Lower abdominal pain Status: Acute (18) On anticoagulant therapy Status: Acute (19) Pelvic cramping Status: Acute (20) PID (acute pelvic inflammatory disease) Status: Acute (21) Right ankle sprain Status: Acute (22) Right-sided chest pain Status: Acute (23) Shortness of breath Status: Acute (24) Shortness of breath Status: Acute Review of Systems All Other Systems: Reviewed and Negative Objective Vital Signs Date Time Temp Pulse Resp B/P (MAP) Pulse Ox O2 Delivery O2 Flow Rate FiO2 06/24/17 15:45 Room Air 06/24/17 14:36 36.8 65 16 90/57 (68) 94 06/24/17 08:00 Room Air 06/24/17 07:16 36.6 64 18 108/69 (82) 95 Room Air 06/24/17 00:00 Room Air 06/23/17 23:30 36.6 65 16 96/62 (73) 96 Room Air 06/23/17 19:53 36.3 65 19 107/66 (80) 96 Room Air 06/23/17 18:35 Room Air Physical Exam General Appearance: + mild distress Abdomen: + tenderness 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iatric: alert, normal mood/affect Laboratory Results Last 24 Hours Test 06/24/17 07:23 Prothrombin Time 19.7 SECONDS Prothromb Time International Ratio 1.9 Assessment and Plan (1) Urolithiasis (2) Incomplete emptying of bladder Continues to have pain. Not unexpected given her baseline pain issues. Smith now out. DAKOTAH and KUB show stent well positioned. Some patients have severe stent colic. She appears to be that patient. May consider stent removal at the bedside tomorrow if pain persists.
[2017-06-24] MEDS ORDERED: TRAMADOL HCL 50 MG TAB ONE (20:43)
[2017-06-24] MEDS ORDERED: TRAMADOL HCL 50 MG TAB PO PRN (20:45)
[2017-06-24] MEDS: PRAZOSIN HCL 1 MG CAP PO SCH (20:49)
[2017-06-24] MEDS ORDERED: HYDROmorphone INJ 0.5 MG/0.5 ML SYR IV ONE (21:45)
--- NOTE | 2017-06-24 22:09 | Progress Note ---
Medicine Progress Note Date & Time of Visit: Jun 24, 2017 at 11:46. Subjective Reports persistent L flank pain equal to the pain she felt prior to the cystoscsopy. She states "I would rather have the stone at this point." Persistent nausea and requests for Phenergan IV and Dilaudid. Denies TARANGO or other issues. Tolerating PO. Pyridium started yesterday and pt feels this has been somewhat helpful. Objective Last 8 Hrs Date Time Temp Pulse Resp B/P (MAP) Pulse Ox O2 Delivery O2 Flow Rate FiO2 06/24/17 08:00 Room Air 06/24/17 07:16 36.6 64 18 108/69 (82) 95 Room Air Physical Exam: GEN: WNWD, in mild distress, holding her head, alert and appropriate. HEENT: NC/AT, MMM CARDIO: reg rate, S1/2 heard without m/g/r LUNGS: CTA bilaterally, no crackles, rales or wheezes, good diaphragmatic excursion ABD: soft, TTP in LLQ, non-distended, +BS, +CVA tenderness on L side EXTREMITY: no LE swelling or edema, extremities are warm and well-perfused SKIN: warm and dry Laboratory Results: 06/23/17 05:58 06/23/17 05:58 Test 06/20/17 05:10 06/21/17 00:00 06/23/17 05:58 06/24/17 07:23 Immature Granulocyte % (Auto) 0.4 % White Blood Count 4.67 K/uL (4.8-10.8) Red Blood Count 4.44 M/uL (4.2-5.4) 3.95 M/uL (4.2-5.4) Hemoglobin 15.0 g/dL (12.0-16.0) Hematocrit 42.1 % (37-47) Mean Corpuscular Volume 94.8 fL (80-100) 95.4 fL (80-100) Mean Corpuscular Hemoglobin 33.8 pg (25-34) 33.2 pg (25-34) Mean Corpuscular Hemoglobin Concent 35.6 g/dl (32-36) 34.7 g/dl (32-36) Platelet Count 164 K/uL (130-400) Mean Platelet Volume 10.2 fL (7.4-10.4) 10.6 fL (7.4-10.4) Neutrophils (%) (Auto) 48.9 % Lymphocytes (%) (Auto) 39.2 % Monocytes (%) (Auto) 7.5 % Eosinophils (%) (Auto) 3.4 % Basophils (%) (Auto) 0.6 % Neutrophils # (Auto) 2.28 K/uL (1.4-6.5) Lymphocytes # (Auto) 1.83 K/uL (1.2-3.4) Monocytes # (Auto) 0.35 K/uL (0.11-0.59) Eosinophils # (Auto) 0.16 K/uL (0-0.5) Basophils # (Auto) 0.03 K/uL (0-0.2) Immature Granulocyte # (Auto) 0.02 K/uL (0.00-0.02) Urine Color YELLOW Urine Appearance TURBID (CLEAR) Urine pH 8.0 (4.5-7.5) Urine Specific [place] 1.017 (1.000-1.030) Urine Protein NEG (NEG) Urine Glucose (UA) NEG (NEG) Urine Ketones NEG (NEG) Urine Occult Blood NEG (NEG) Urine Nitrite NEG (NEG) Urine Bilirubin NEG (NEG) Urine Urobilinogen NEG (NEG) Urine Leukocyte Esterase NEG (NEG) Urine WBC (Auto) 1-5 /hpf (0-5) Urine RBC (Auto) 0-4 /hpf (0-4) Urine Hyaline Casts (Auto) 1-5 /lpf (0-5) Urine Epithelial Cells (Auto) 10-20 /lpf (0-5) Urine Bacteria (Auto) NEG (NEG) Urine Test NEG (NEG) RDW Standard Deviation 43.8 fL (36.4-46.3) RDW Coefficient of Variation 12.6 % (11.5-14.5) Anion Gap 7.0 mmol/L (3-11) Est Creatinine Clear Calc Drug Dose 92.6 ml/min Estimated GFR () 116.1 Estimated GFR (Non- 100.2 BUN/Creatinine Ratio 8.2 (10-20) Calcium Level 7.5 mg/dl (8.5-10.1) Magnesium Level 2.0 mg/dl (1.8-2.4) Prothrombin Time 19.7 SECONDS (9.0-12.0) Prothromb Time International Ratio 1.9 (0.9-1.1) Last 24 Hours Test 06/24/17 07:23 Prothrombin Time 19.7 SECONDS Prothromb Time International Ratio 1.9 Assessment & Plan Reports persistent L flank pain equal to the pain she felt prior to the cystoscsopy. She states "I would rather have the stone at this point." Persistent nausea and requests for Phenergan IV and Dilaudid. Denies TARANGO or other issues. Tolerating PO. Pyridium started yesterday and pt feels this has been somewhat helpful. 1. Ureteral colic 2/2 distal obstructing stone s/p L ureteral stent. Urology is considering stent colic in her and may need to remove stent tomorrow. However, KUB and renal us both verify good positioning and no hydronephrosis. Uncertain where her pain might otherwise be coming from. 2. Acute urinary retention- resolved. Arias placed post-operatively which was removed. She has been urinating spontaneously 3. Hematemesis likely 2/2 dieudonne Snyder tear in setting of prior vomiting. No drop in H/H. Tolerating PO. Stop PPI drip. Protonix 40mg PO BID. F/u with GI as outpatient. Restarted coumadin. 4. Depression-continues on Trintellix and Xanax PRN 5. Factor V Leiden-on chronic coumadin. INR 1.7 this morning. Coumadin restarted. 6. Seizure disorder-continues on Topamax. Pt reports being seizure-free for the past 10 years. 7. Hypokalemia-replaced PO. DVT proph-Coumadin Full Code Dispo-med[facility]surg. [facility] Urology-Dr. Thompson Current Inpatient Medications: Current Inpatient Medications Medications (Trade) Dose Ordered Sig/Cassy Route Start Time Stop Time Status Last Admin Dose Admin Acetaminophen (Tylenol Tab) 650 mg Q4H PRN PO 06/20/17 06:45 07/20/17 06:44 Ondansetron HCl (Zofran Inj) 4 mg Q6H PRN IV 06/20/17 06:45 07/20/17 06:44 06/23/17 00:15 4 MG Miscellaneous (Iv Fluids Completed) 1 ea PRN PRN N/A 06/20/17 07:00 06/20/18 06:59 Naloxone HCl (Narcan Inj) 0.1 mg Q5M PRN IV 06/20/17 09:15 07/20/17 09:14 Docusate Sodium (coLACE CAP) 100 mg BID PO 06/20/17 21:00 07/20/17 20:59 06/24/17 07:44 100 MG Sodium Chloride 1,000 ml @ 15 mls/hr Q24H IV 06/20/17 09:01 07/20/17 09:00 Polyethylene (Miralax Powder Packet) 17 gm DAILY PRN PO 06/20/17 09:15 07/20/17 09:14 Albuterol (Ventolin Hfa Inhaler) 2 puffs QID PRN INH 06/20/17 09:30 07/20/17 09:29 Topiramate (Topamax Tab) 200 mg BID PO 06/20/17 09:30 07/20/17 09:29 06/24/17 07:44 200 MG Miscellaneous Information (Order Awaiting Action) 1 ea QS N/A 06/20/17 16:00 07/20/17 15:59 Tamsulosin HCl (Flomax Cap) 0.4 mg QAM PO 06/20/17 09:30 07/20/17 09:29 06/24/17 09:50 0.4 MG Prazosin HCl (Prazosin) 1 mg HS PO 06/20/17 21:00 07/20/17 20:59 06/23/17 21:11 1 MG Alprazolam (Xanax Tab) 0.25 mg HS PRN PO 06/20/17 22:00 07/20/17 21:59 06/22/17 17:45 0.25 MG Hydromorphone HCl (Dilaudid Inj) 0.5 mg Q4H PRN IV 06/21/17 21:30 07/05/17 21:29 06/24/17 07:40 0.5 MG Phenazopyridine HCl (Pyridium Tab) 100 mg TID PO 06/23/17 15:00 07/23/17 14:59 06/24/17 07:44 100 MG Warfarin Sodium (Coumadin Tab) 5 mg DAILY@16 PO 06/23/17 16:00 07/23/17 15:59 06/23/17 15:53 5 MG Pantoprazole Sodium (Protonix Tab) 40 mg BID PO 06/23/17 21:00 07/23/17 20:59 06/24/17 07:45 40 MG Promethazine HCl (Phenergan Tab) 25 mg Q6H PRN PO 06/23/17 15:00 07/23/17 14:59 06/24/17 09:50 25 MG Acetaminophen/ Hydrocodone Bitart ([place] 5/325 Tab) 1 tab TID PO 06/23/17 21:00 07/07/17 20:59 06/24/17 07:41 1 TAB
[2017-06-24] MEDS ORDERED: ACETAMINOPHEN IV 1,000 MG in EMPTY BAG 0 ML IV ONE (22:15)
[2017-06-24] MEDS ORDERED: ACETAMINOPHEN IV 1000MG/100ML IV STA (22:18)
--- NOTE | 2017-06-24 22:31 | Progress Note ---
Progress Note Date of Service Jun 24, 2017. Progress Note informed by RN that patient was having severe L sided pain, just received Dilaudid PO ~2 hours ago ordered Tramadol 50mg PO an hour later, patient still reports severe L sided pain, crying states " i want the stent out". Hesitant to urinate due to pain; Bladder scan reveals 120cc Dilaudid 0.5mg IV one dose ordered, usual Ambia 1 tab ordered 16h PRN, continue Dilaudid 2mg po PRN will avoid using NSAID's given recent possible hematemesis after 30 minutes patient still reports L sided pain- more on the CVA region (+) CVA tenderness called Dr. Crabtree, recommend pain management overnight and plan for stent removal tomorrow will follow closely Diana Leija MD
[2017-06-24] MEDS: HYDROCODONE/ACETAMOPHEN 5/325MG TAB PO PRN (22:32)
[2017-06-24 23:00] VITALS: BP 123/79; PULSE 66; TEMP 36.8; O2SAT 97
[2017-06-25] MEDS: HYDROmorphone HCL 2 MG TAB PO PRN ×2 (01:12→07:45)
[2017-06-25] MEDS: ALPRAZOLAM 0.25 MG TAB PO PRN (01:23)
[2017-06-25] MEDS: ONDANSETRON INJ 2 MG/ML 2 ML VIAL IV PRN (02:41)
[2017-06-25] MEDS: PROMETHAZINE HCL 25 MG TAB PO PRN ×2 (04:40→10:38)
[2017-06-25] MEDS: HYDROCODONE/ACETAMOPHEN 5/325MG TAB PO PRN ×2 (04:40→10:39)
[2017-06-25 05:52] LABS: HEMATOCRIT 38.6 % (37-47); HEMOGLOBIN 13.8 g/dL (12.0-16.0); MEAN CELL VOLUME 94.4 fL (80-100); MEAN CORPUSCULAR HEMOGLOBIN 33.7 pg (25-34); MEAN CORPUSCULAR HGB CONC 35.8 g/dl (32-36); MEAN PLATELET VOLUME 10.4 fL (7.4-10.4); PLATELET COUNT 138 K/uL (130-400); RED CELL DISTRIBUTION WIDTH CV 12.6 % (11.5-14.5); RED CELL DISTRIBUTION WIDTH SD 43.2 fL (36.4-46.3); WHITE BLOOD COUNT 6.66 K/uL (4.8-10.8)
[2017-06-25 06:01] LABS: INR 2.5 (0.9-1.1)
[2017-06-25 06:36] LABS: CALCIUM 8.3 mg/dl (8.5-10.1); CREATININE 0.94 mg/dl (0.60-1.20); POTASSIUM 3.6 mmol/L (3.5-5.1)
[2017-06-25] MEDS: VORTIOXETINE HBR 20 MG PO SCH (08:11)
[2017-06-25] MEDS: TAMSULOSIN HCL 0.4 MG CAP PO SCH (08:12)
[2017-06-25] MEDS: TOPIRAMATE 100 MG TAB PO SCH ×2 (08:13→21:51)
[2017-06-25] MEDS: DOCUSATE SODIUM 100 MG CAP PO SCH ×2 (08:13→21:51)
[2017-06-25] MEDS: PANTOprazole SOD 40 MG TAB PO SCH ×2 (08:13→21:51)
[2017-06-25] MEDS: PHENAZOPYRIDINE HCL 100 MG TAB PO SCH (08:13)
[2017-06-25 08:25] VITALS: BP 113/79; PULSE 64; TEMP 36.7; O2SAT 94
[2017-06-25] MEDS ORDERED: NURSING VERBAL MED ORDER ONE ×2 (08:45→09:00)
[2017-06-25] MEDS ORDERED: HYDROmorphone INJ 0.5 MG/0.5 ML SYR IV ONE (09:15)
--- NOTE | 2017-06-25 11:31 | Progress Note ---
Medicine Progress Note Date & Time of Visit: Jun 25, 2017 at 11:21. Subjective Improvement in pain after stent removal this morning. Reports that her nausea is intermittent. Reports that she feels bloated. Encouraged her to ambulate, however, she feels this may be too much for her. Continues on the dilaudid PO. Objective Last 8 Hrs Date Time Temp Pulse Resp B/P (MAP) Pulse Ox O2 Delivery O2 Flow Rate FiO2 06/25/17 08:25 36.7 64 18 113/79 (90) 94 Room Air 06/25/17 08:00 Room Air Physical Exam: GEN: WNWD, NAD, alert and appropriate. Moves very slowly around the bed, guarding L flank and abdomen. HEENT: NC/AT, MMM CARDIO: reg rate, S1/2 heard without m/g/r LUNGS: CTA bilaterally, no crackles, rales or wheezes, good diaphragmatic excursion ABD: soft, protuberant but soft, TTP in RLQ and LLQ, non-distended, +BS, +CVA tenderness on L side EXTREMITY: no LE swelling or edema, extremities are warm and well-perfused SKIN: warm and dry Laboratory Results: 06/25/17 05:35 06/25/17 05:35 Test 06/20/17 05:10 06/21/17 00:00 06/23/17 05:58 06/25/17 05:35 Immature Granulocyte % (Auto) 0.4 % White Blood Count 4.67 K/uL (4.8-10.8) Red Blood Count 4.44 M/uL (4.2-5.4) 4.09 M/uL (4.2-5.4) Hemoglobin 15.0 g/dL (12.0-16.0) Hematocrit 42.1 % (37-47) Mean Corpuscular Volume 94.8 fL (80-100) 94.4 fL (80-100) Mean Corpuscular Hemoglobin 33.8 pg (25-34) 33.7 pg (25-34) Mean Corpuscular Hemoglobin Concent 35.6 g/dl (32-36) 35.8 g/dl (32-36) Platelet Count 164 K/uL (130-400) Mean Platelet Volume 10.2 fL (7.4-10.4) 10.4 fL (7.4-10.4) Neutrophils (%) (Auto) 48.9 % Lymphocytes (%) (Auto) 39.2 % Monocytes (%) (Auto) 7.5 % Eosinophils (%) (Auto) 3.4 % Basophils (%) (Auto) 0.6 % Neutrophils # (Auto) 2.28 K/uL (1.4-6.5) Lymphocytes # (Auto) 1.83 K/uL (1.2-3.4) Monocytes # (Auto) 0.35 K/uL (0.11-0.59) Eosinophils # (Auto) 0.16 K/uL (0-0.5) Basophils # (Auto) 0.03 K/uL (0-0.2) Immature Granulocyte # (Auto) 0.02 K/uL (0.00-0.02) Urine Color YELLOW Urine Appearance TURBID (CLEAR) Urine pH 8.0 (4.5-7.5) Urine Specific Orick 1.017 (1.000-1.030) Urine Protein NEG (NEG) Urine Glucose (UA) NEG (NEG) Urine Ketones NEG (NEG) Urine Occult Blood NEG (NEG) Urine Nitrite NEG (NEG) Urine Bilirubin NEG (NEG) Urine Urobilinogen NEG (NEG) Urine Leukocyte Esterase NEG (NEG) Urine WBC (Auto) 1-5 /hpf (0-5) Urine RBC (Auto) 0-4 /hpf (0-4) Urine Hyaline Casts (Auto) 1-5 /lpf (0-5) Urine Epithelial Cells (Auto) 10-20 /lpf (0-5) Urine Bacteria (Auto) NEG (NEG) Urine Test NEG (NEG) Magnesium Level 2.0 mg/dl (1.8-2.4) RDW Standard Deviation 43.2 fL (36.4-46.3) RDW Coefficient of Variation 12.6 % (11.5-14.5) Prothrombin Time 25.8 SECONDS (9.0-12.0) Prothromb Time International Ratio 2.5 (0.9-1.1) Anion Gap 7.0 mmol/L (3-11) Est Creatinine Clear Calc Drug Dose 71.9 ml/min Estimated GFR () 85.5 Estimated GFR (Non- 73.8 BUN/Creatinine Ratio 16.9 (10-20) Calcium Level 8.3 mg/dl (8.5-10.1) Last 24 Hours Test 06/25/17 05:35 White Blood Count 6.66 K/uL Red Blood Count 4.09 M/uL Hemoglobin 13.8 g/dL Hematocrit 38.6 % Mean Corpuscular Volume 94.4 fL Mean Corpuscular Hemoglobin 33.7 pg Mean Corpuscular Hemoglobin Concent 35.8 g/dl RDW Standard Deviation 43.2 fL RDW Coefficient of Variation 12.6 % Platelet Count 138 K/uL Mean Platelet Volume 10.4 fL Prothrombin Time 25.8 SECONDS Prothromb Time International Ratio 2.5 Sodium Level 139 mmol/L Potassium Level 3.6 mmol/L Chloride Level 109 mmol/L Carbon Dioxide Level 23 mmol/L Anion Gap 7.0 mmol/L Blood Urea Nitrogen 16 mg/dl Creatinine 0.94 mg/dl Est Creatinine Clear Calc Drug Dose 71.9 ml/min Estimated GFR () 85.5 Estimated GFR (Non- 73.8 BUN/Creatinine Ratio 16.9 Random Glucose 91 mg/dl Calcium Level 8.3 mg/dl Assessment & Plan Improvement in pain after stent removal this morning. Reports that her nausea is intermittent. Reports that she feels bloated. Encouraged her to ambulate, however, she feels this may be too much for her. Continues on the dilaudid PO. 1. Ureteral colic 2/2 distal obstructing stone s/p L ureteral stent. Urology removed stent today. Pain somewhat improved. Apprec Urology recs. Pt will likely need follow-up in office with Dr. Thompson. I am going to transition her back to her scheduled hydrocodone punctuated with extra oxy as needed for severe pain to try to work her back to her initial narcotic regimen. 2. Acute urinary retention- resolved. Arias placed post-operatively which was removed. She has been urinating spontaneously 3. Hematemesis likely 2/2 dieudonne Snyder tear in setting of prior vomiting. No drop in H/H. Tolerating PO. Cont Protonix 40mg PO BID. F/u with GI as outpatient. Restarted coumadin and doing well. 4. Depression-continues on Trintellix and Xanax PRN 5. Factor V Leiden-on chronic coumadin. Coumadin restarted. INR therapeutic. 6. Seizure disorder-continues on Topamax. Pt reports being seizure-free for the past 10 years. 7. Hypokalemia-resolved. DVT proph-Coumadin Full Code Dispo-med/surg. [facility] Consultants: Urology-Dr. Thompson Current Inpatient Medications: Current Inpatient Medications Medications (Trade) Dose Ordered Sig/Cassy Route Start Time Stop Time Status Last Admin Dose Admin Acetaminophen (Tylenol Tab) 650 mg Q4H PRN PO 06/20/17 06:45 07/20/17 06:44 Ondansetron HCl (Zofran Inj) 4 mg Q6H PRN IV 06/20/17 06:45 07/20/17 06:44 06/25/17 02:41 4 MG Miscellaneous (Iv Fluids Completed) 1 ea PRN PRN N/A 06/20/17 07:00 06/20/18 06:59 Naloxone HCl (Narcan Inj) 0.1 mg Q5M PRN IV 06/20/17 09:15 07/20/17 09:14 Docusate Sodium (coLACE CAP) 100 mg BID PO 06/20/17 21:00 07/20/17 20:59 06/25/17 08:13 100 MG Polyethylene (Miralax Powder Packet) 17 gm DAILY PRN PO 06/20/17 09:15 07/20/17 09:14 06/25/17 08:11 17 GM Albuterol (Ventolin Hfa Inhaler) 2 puffs QID PRN INH 06/20/17 09:30 07/20/17 09:29 Topiramate (Topamax Tab) 200 mg BID PO 06/20/17 09:30 07/20/17 09:29 06/25/17 08:13 200 MG Tamsulosin HCl (Flomax Cap) 0.4 mg QAM PO 06/20/17 09:30 07/20/17 09:29 06/25/17 08:12 0.4 MG Prazosin HCl (Prazosin) 1 mg HS PO 06/20/17 21:00 07/20/17 20:59 06/24/17 20:49 1 MG Alprazolam (Xanax Tab) 0.25 mg HS PRN PO 06/20/17 22:00 07/20/17 21:59 06/25/17 01:23 0.25 MG Phenazopyridine HCl (Pyridium Tab) 100 mg TID PO 06/23/17 15:00 07/23/17 14:59 06/25/17 08:13 100 MG Warfarin Sodium (Coumadin Tab) 5 mg DAILY@16 PO 06/23/17 16:00 07/23/17 15:59 06/24/17 17:41 5 MG Pantoprazole Sodium (Protonix Tab) 40 mg BID PO 06/23/17 21:00 07/23/17 20:59 06/25/17 08:13 40 MG Promethazine HCl (Phenergan Tab) 25 mg Q6H PRN PO 06/23/17 15:00 07/23/17 14:59 06/25/17 10:38 25 MG Hydromorphone HCl (Dilaudid Tab) 2 mg Q4H PRN PO 06/24/17 11:45 07/08/17 11:44 06/25/17 07:45 2 MG Vortioxetine (Trintellix) 20 mg DAILY PO 06/25/17 09:00 07/25/17 08:59 06/25/17 08:11 20 MG Acetaminophen/ Hydrocodone Bitart ([place] 5/325 Tab) 1 tab Q6H PRN PO 06/24/17 21:45 07/08/17 21:44 06/25/17 10:39 1 TAB
--- NOTE | 2017-06-25 12:47 | Progress Note ---
Subjective Date of Service: Jun 25, 2017. Subjective Pt evaluation today including: conversation w/ patient, physical exam Pt continues to have pain s/p Cysto, uscope, laser litho, and stent placement on 06/21/17 Dilaudid required to control pain Also taking pyridium, flomax, and toradol Has had nausea and vomitting as well KUB and DAKOTAH done 06/24/17. These were normal. No hydro. Stent well positioned. Voiding on her own. Still having pain despite simth removal. Pt requesting to have stent removed. Problem List Medical Problems: (1) Asthma, Unspecified Status: Chronic (2) Bipolar Disorder, Unspecified Status: Chronic (3) Coagulopathy Status: Acute (4) Common Migraine W/O Intractable Migraine Status: Chronic (5) DVT (deep venous thrombosis) Status: Acute (6) Epilepsy, Unsp, Not Intractable, Without Status Epilepticus Status: Chronic (7) Episode of heavy vaginal bleeding Status: Acute (8) Factor V Leiden Status: Chronic (9) Failure of outpatient treatment Status: Acute (10) Hypokalemia Status: Acute (11) Left leg DVT Status: Acute (12) Left leg DVT Status: Acute (13) Left leg pain Status: Acute (14) Left ureteral calculus Status: Acute (15) Left ureteral calculus Status: Acute (16) [employer] (Current) Use Of 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 Status: Chronic (17) Lower abdominal pain Status: Acute (18) On anticoagulant therapy Status: Acute (19) Pelvic cramping Status: Acute (20) PID (acute pelvic inflammatory disease) Status: Acute (21) Right ankle sprain Status: Acute (22) Right-sided chest pain Status: Acute (23) Shortness of breath Status: Acute (24) Shortness of breath Status: Acute Review of Systems All Other Systems: Reviewed and Negative Objective Vital Signs Date Time Temp Pulse Resp B/P (MAP) Pulse Ox O2 Delivery O2 Flow Rate FiO2 06/25/17 08:25 36.7 64 18 113/79 (90) 94 Room Air 06/25/17 08:00 Room Air 06/25/17 00:00 Room Air 06/24/17 23:00 36.8 66 22 123/79 (94) 97 Room Air 06/24/17 20:00 Room Air 06/24/17 15:45 Room Air 06/24/17 14:36 36.8 65 16 90/57 (62) 94 Physical Exam General Appearance: + mild distress Respiratory/Chest: lungs clear Abdomen: + tenderness 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iatric: alert Skin: no rash Laboratory Results Last 24 Hours Test 06/25/17 05:35 White Blood Count 6.66 K/uL Red Blood Count 4.09 M/uL Hemoglobin 13.8 g/dL Hematocrit 38.6 % Mean Corpuscular Volume 94.4 fL Mean Corpuscular Hemoglobin 33.7 pg Mean Corpuscular Hemoglobin Concent 35.8 g/dl RDW Standard Deviation 43.2 fL RDW Coefficient of Variation 12.6 % Platelet Count 138 K/uL Mean Platelet Volume 10.4 fL Prothrombin Time 25.8 SECONDS Prothromb Time International Ratio 2.5 Sodium Level 139 mmol/L Potassium Level 3.6 mmol/L Chloride Level 109 mmol/L Carbon Dioxide Level 23 mmol/L Anion Gap 7.0 mmol/L Blood Urea Nitrogen 16 mg/dl Creatinine 0.94 mg/dl Est Creatinine Clear Calc Drug Dose 71.9 ml/min Estimated GFR () 85.5 Estimated GFR (Non- 73.8 BUN/Creatinine Ratio 16.9 Random Glucose 91 mg/dl Calcium Level 8.3 mg/dl Assessment and Plan (1) Urolithiasis (2) Incomplete emptying of bladder Continues to have pain. Not unexpected given her baseline pain issues. Cysto and stent removal performed today at the bedside. Hopefully pain improves with that out. F/U as outpatient to review stone risk.
[2017-06-25] MEDS: HYDROCODONE/ACETAMOPHEN 5/325MG TAB PO SCH ×2 (13:54→21:48)
[2017-06-25] MEDS ORDERED: IBUPROFEN 200 MG TAB PO STA (15:09)
[2017-06-25 15:39] VITALS: BP 91/57; PULSE 87; TEMP 36.8; O2SAT 94
[2017-06-25] MEDS: WARFARIN SOD 5 MG TAB PO SCH (15:46)
[2017-06-25 16:00] VITALS: O2SAT 94
[2017-06-25 19:47] VITALS: BP 93/60; PULSE 76; TEMP 36.6; O2SAT 95
[2017-06-25] MEDS: PRAZOSIN HCL 1 MG CAP PO SCH (21:51)
[2017-06-25 21:52] VITALS: BP 94/63
[2017-06-26] VITALS: BP 93/62; PULSE 73; TEMP 36.8; O2SAT 94
[2017-06-26] MEDS: ALPRAZOLAM 0.25 MG TAB PO PRN (00:03)
[2017-06-26] MEDS: ACETAMINOPHEN 325 MG TAB PO PRN ×2 (05:16→16:36)
[2017-06-26 06:00] LABS: INR 3.6 (0.9-1.1)
[2017-06-26] MEDS: HYDROCODONE/ACETAMOPHEN 5/325MG TAB PO SCH ×3 (06:10→20:30)
[2017-06-26] MEDS: PROMETHAZINE HCL 25 MG TAB PO PRN ×2 (06:11→22:22)
[2017-06-26 07:20] VITALS: BP 102/67; PULSE 68; TEMP 36.7; O2SAT 95
[2017-06-26] MEDS: DOCUSATE SODIUM 100 MG CAP PO SCH ×2 (08:08→20:31)
[2017-06-26] MEDS: VORTIOXETINE HBR 20 MG PO SCH (08:08)
[2017-06-26] MEDS: TAMSULOSIN HCL 0.4 MG CAP PO SCH (08:09)
[2017-06-26] MEDS: TOPIRAMATE 100 MG TAB PO SCH ×2 (08:09→20:31)
[2017-06-26] MEDS: PANTOprazole SOD 40 MG TAB PO SCH ×2 (08:09→20:31)
--- NOTE | 2017-06-26 09:29 | Pain Management Consultation ---
Pain Management Consultation Date of Consultation Jun 26, 2017. Reason for Consultation Left-sided ureteral colic History This is a 46 y/o white female that has been seen at the [facility] for left sided-ureteral colic. She was found to have a 5mm ureteral stone that required stent placement on 06/21/17. The stent has been removed on 06/25/17. Patient states that once the stent was removed her pain significantly improved. At 0400 this morning she urinated and went a sudden sharp pain along the left flank radiating into the left groin. The pain has slightly decreased since then with the use of her chronic Hydrocodone 5/325mg TID use. Patient states "I've been on Hydrocodone for years, I'm sure my body is used to it by now." She does report dysuria since this morning. She is able to eat without any difficulty. Patient is questioning the use of Pyridium as she has not received any since yesterday morning and felt that it was providing moderate relief. Patient denies nay nausea, vomiting, hematuria. Case discussed with Dr. 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) Allergies Coded Allergies: Kiwi (Verified Allergy, Severe, ANAPHYLAXIS, 06/20/17) NUTS (Verified Allergy, Severe, ANAPHYLAXIS, 06/20/17) Metronidazole (Verified Allergy, Intermediate, hives, 06/20/17) Morphine (Verified Allergy, Intermediate, chest pain; trouble breathing, 06/20/17) Peanut (Verified Allergy, Unknown, 06/20/17) Prochlorperazine (Verified Allergy, Unknown, SEVERE ALLERGIC RXN, 06/20/17 ) Medications Current Inpatient Medications Medications (Trade) Dose Ordered Sig/Cassy Route Start Time Stop Time Status Last Admin Dose Admin Acetaminophen (Tylenol Tab) 650 mg Q4H PRN PO 12/27/17 06:45 07/20/17 06:44 06/26/17 05:16 650 MG Ondansetron HCl (Zofran Inj) 4 mg Q6H PRN IV 06/20/17 06:45 07/20/17 06:44 06/25/17 02:41 4 MG Miscellaneous (Iv Fluids Completed) 1 ea PRN PRN N/A 06/20/17 07:00 06/20/18 06:59 Naloxone HCl (Narcan Inj) 0.1 mg Q5M PRN IV 06/20/17 09:15 07/20/17 09:14 Docusate Sodium (coLACE CAP) 100 mg BID PO 06/20/17 21:00 07/20/17 20:59 06/26/17 08:08 100 MG Polyethylene (Miralax Powder Packet) 17 gm DAILY PRN PO 06/20/17 09:15 07/20/17 09:14 06/25/17 08:11 17 GM Albuterol (Ventolin Hfa Inhaler) 2 puffs QID PRN INH 06/20/17 09:30 07/20/17 09:29 Topiramate (Topamax Tab) 200 mg BID PO 06/20/17 09:30 07/20/17 09:29 06/26/17 08:09 200 MG Tamsulosin HCl (Flomax Cap) 0.4 mg QAM PO 06/20/17 09:30 07/20/17 09:29 06/26/17 08:09 0.4 MG Prazosin HCl (Prazosin) 1 mg HS PO 06/20/17 21:00 07/20/17 20:59 06/25/17 21:51 1 MG Alprazolam (Xanax Tab) 0.25 mg HS PRN PO 06/20/17 22:00 07/20/17 21:59 06/26/17 00:03 0.25 MG Warfarin Sodium (Coumadin Tab) 5 mg DAILY@16 PO 06/23/17 16:00 07/23/17 15:59 06/25/17 15:46 5 MG Pantoprazole Sodium (Protonix Tab) 40 mg BID PO 06/23/17 21:00 07/23/17 20:59 06/26/17 08:09 40 MG Promethazine HCl (Phenergan Tab) 25 mg Q6H PRN PO 06/23/17 15:00 07/23/17 14:59 06/26/17 06:11 25 MG Vortioxetine (Trintellix) 20 mg DAILY PO 06/25/17 09:00 07/25/17 08:59 06/26/17 08:08 20 MG Acetaminophen/ Hydrocodone Bitart ([place] 5/325 Tab) 1 tab TID PO 06/25/17 14:00 07/08/17 21:44 06/26/17 06:10 1 TAB Review of Systems Denies complaints related to 10 organ system review. Physical Exam Height & Weight: Height 5 feet, 2.00 inches. Weight 73.900 (Kilograms) 162 (Pounds) Last Vital Signs Documentation Date Time Temp Pulse Resp B/P (MAP) Pulse Ox O2 Delivery O2 Flow Rate FiO2 06/26/17 08:00 Room Air 06/26/17 07:20 36.7 68 16 102/67 (79) 95 06/23/17 17:28 4.0 Exam: GENERAL: Mrs. Pierce is a 46 y/o white female that appears her stated age. Speech and cognition is intact. Appears anxious. HEAD: Normocephalic; atraumatic. EYES: Pupils are round, equal, and reactive to light; EOM intact. ENT: No external ear discharge or lesions. No rhinorrhea or epistaxis. No mucosal lesions. CHEST: Regular chest respiration and excursion. NEURO: CN II-XII grossly intact with no focal deficits noted. SKIN: No lesions, erythema, or rashes noted. Laboratory Laboratory Results (Last CBC): 06/25/17 05:35 [place] Drug Monitoring Program Search Results: patient reviewed within database (routine refills of Hydrocodone. Consistent with pharmacy, prescribers, and refill dates) Assessment 1. Left sided ureteral colic 2. Depressive disorder 3. Factor V Leiden 4. History of DVTs Recommendations 1. Continue Hydrocodone 5/325mg PO TID as she is chronically prescribed by PCP. 2. Resuming Pyridium will be left to Urology/Hospitalist. 3. With the patient experiencing dysuria since 0, may consider a urinalysis to ensure there is no UTI present. Last UA was 06/20/17 which was negative.
[2017-06-26] MEDS: ONDANSETRON INJ 2 MG/ML 2 ML VIAL IV PRN (11:15)
[2017-06-26] MEDS ORDERED: HYDROmorphone INJ 0.5 MG/0.5 ML SYR IV STA (11:23)
[2017-06-26] MEDS ORDERED: SODIUM CHLORIDE 0.9% 1000ML 1,000 ML IV SCH (11:30)
[2017-06-26] MEDS: PHENAZOPYRIDINE HCL 200 MG TAB PO SCH ×3 (11:56→20:30)
[2017-06-26] MEDS ORDERED: ALPR0.25 PO (12:23)
[2017-06-26] MEDS ORDERED: ALPRAZOLAM 0.25 MG TAB PO PRN (12:30)
--- NOTE | 2017-06-26 13:25 | Progress Note ---
Medicine Progress Note Date & Time of Visit: Jun 26, 2017 at 12:24. Subjective worsening pain beginning at 0400 this morning that is in her L flank. She requests for the pyridium to be restarted and states that she was doing well yesterday and tolerating PO until this morning, when the pain acutely got worse. She states she is only able to urinate a little at a time and there is pain when she urinates. She vomited once this morning already. Objective Last 8 Hrs Date Time Temp Pulse Resp B/P (MAP) Pulse Ox O2 Delivery O2 Flow Rate FiO2 06/26/17 08:00 Room Air 06/26/17 07:20 36.7 68 16 102/67 (79) 95 Physical Exam: GEN: WNWD, NAD, alert and appropriate. Moves very slowly around the bed, guarding L flank and abdomen. HEENT: NC/AT, MMM CARDIO: reg rate, S1/2 heard without m/g/r LUNGS: CTA bilaterally, no crackles, rales or wheezes, good diaphragmatic excursion ABD: soft, protuberant but soft, TTP in RLQ and LLQ, non-distended, +BS, +CVA tenderness on L side EXTREMITY: no LE swelling or edema, extremities are warm and well-perfused SKIN: warm and dry Laboratory Results: 06/25/17 05:35 06/25/17 05:35 Test 06/20/17 05:10 06/21/17 00:00 06/23/17 05:58 06/25/17 05:35 Immature Granulocyte % (Auto) 0.4 % White Blood Count 4.67 K/uL (4.8-10.8) Red Blood Count 4.44 M/uL (4.2-5.4) 4.09 M/uL (4.2-5.4) Hemoglobin 15.0 g/dL (12.0-16.0) Hematocrit 42.1 % (37-47) Mean Corpuscular Volume 94.8 fL (80-100) 94.4 fL (80-100) Mean Corpuscular Hemoglobin 33.8 pg (25-34) 33.7 pg (25-34) Mean Corpuscular Hemoglobin Concent 35.6 g/dl (32-36) 35.8 g/dl (32-36) Platelet Count 164 K/uL (130-400) Mean Platelet Volume 10.2 fL (7.4-10.4) 10.4 fL (7.4-10.4) Neutrophils (%) (Auto) 48.9 % Lymphocytes (%) (Auto) 39.2 % Monocytes (%) (Auto) 7.5 % Eosinophils (%) (Auto) 3.4 % Basophils (%) (Auto) 0.6 % Neutrophils # (Auto) 2.28 K/uL (1.4-6.5) Lymphocytes # (Auto) 1.83 K/uL (1.2-3.4) Monocytes # (Auto) 0.35 K/uL (0.11-0.59) Eosinophils # (Auto) 0.16 K/uL (0-0.5) Basophils # (Auto) 0.03 K/uL (0-0.2) Immature Granulocyte # (Auto) 0.02 K/uL (0.00-0.02) Urine WBC (Auto) 1-5 /hpf (0-5) Urine RBC (Auto) 0-4 /hpf (0-4) Urine Hyaline Casts (Auto) 1-5 /lpf (0-5) Urine Epithelial Cells (Auto) 10-20 /lpf (0-5) Urine Bacteria (Auto) NEG (NEG) Urine Test NEG (NEG) Magnesium Level 2.0 mg/dl (1.8-2.4) RDW Standard Deviation 43.2 fL (36.4-46.3) RDW Coefficient of Variation 12.6 % (11.5-14.5) Anion Gap 7.0 mmol/L (3-11) Est Creatinine Clear Calc Drug Dose 71.9 ml/min Estimated GFR () 85.5 Estimated GFR (Non- 73.8 BUN/Creatinine Ratio 16.9 (10-20) Calcium Level 8.3 mg/dl (8.5-10.1) Test 06/26/17 05:20 06/26/17 12:26 Prothrombin Time 36.4 SECONDS (9.0-12.0) Prothromb Time International Ratio 3.6 (0.9-1.1) Date/Time Source Procedure Growth Status 06/26/17 12:26 Urine , Clean Catch Urine Culture Pending Silvestre Batch Last 24 Hours Test 06/26/17 05:20 Prothrombin Time 36.4 SECONDS Prothromb Time International Ratio 3.6 Assessment & Plan worsening pain beginning at 0400 this morning that is in her L flank. She requests for the pyridium to be restarted and states that she was doing well yesterday and tolerating PO until this morning, when the pain acutely got worse. She states she is only able to urinate a little at a time and there is pain when she urinates. She vomited once this morning already. 1. Ureteral colic 2/2 distal obstructing stone s/p L ureteral stent. Urology removed stent yesterday. Pain worse today, questionable infection versus reemergence of urinary retention. Will bladder scan her now. Gave Dilaudid IV and Zofran for support. Cont her Hydrocodone. Check UA/UCx for infection. 2. Acute urinary retention- resolved. Arias placed post-operatively which was removed. She has been urinating spontaneously. Bladder scan pending. 3. Hematemesis likely 2/2 dieudonne Snyder tear in setting of prior vomiting. No drop in H/H. Tolerating PO. Cont Protonix 40mg PO BID. F/u with GI as outpatient. Restarted coumadin and doing well. 4. Depression-continues on Trintellix and Xanax PRN 5. Factor V Leiden-on chronic coumadin. Coumadin restarted. INR supratherapeutic today at 3.6 so will be held this afternoon. 6. Seizure disorder-continues on Topamax. Pt reports being seizure-free for the past 10 years. DVT proph-Coumadin Full Code Dispo-med/surg. Beatriz Man DO [facility] Hospitalist Consultants: Urology-Dr. Thompson Current Inpatient Medications: Current Inpatient Medications Medications (Trade) Dose Ordered Sig/Cassy Route Start Time Stop Time Status Last Admin Dose Admin Acetaminophen (Tylenol Tab) 650 mg Q4H PRN PO 06/20/17 06:45 07/20/17 06:44 06/26/17 05:16 650 MG Ondansetron HCl (Zofran Inj) 4 mg Q6H PRN IV 06/20/17 06:45 07/20/17 06:44 06/26/17 11:15 4 MG Miscellaneous (Iv Fluids Completed) 1 ea PRN PRN N/A 06/20/17 07:00 06/20/18 06:59 Naloxone HCl (Narcan Inj) 0.1 mg Q5M PRN IV 06/20/17 09:15 07/20/17 09:14 Docusate Sodium (coLACE CAP) 100 mg BID PO 06/20/17 21:00 07/20/17 20:59 06/26/17 08:08 100 MG Polyethylene (Miralax Powder Packet) 17 gm DAILY PRN PO 06/20/17 09:15 07/20/17 09:14 06/25/17 08:11 17 GM Albuterol (Ventolin Hfa Inhaler) 2 puffs QID PRN INH 06/20/17 09:30 07/20/17 09:29 Topiramate (Topamax Tab) 200 mg BID PO 06/20/17 09:30 07/20/17 09:29 06/26/17 08:09 200 MG Tamsulosin HCl (Flomax Cap) 0.4 mg QAM PO 06/20/17 09:30 07/20/17 09:29 06/26/17 08:09 0.4 MG Prazosin HCl (Prazosin) 1 mg HS PO 06/20/17 21:00 07/20/17 20:59 06/25/17 21:51 1 MG Alprazolam (Xanax Tab) 0.25 mg HS PRN PO 06/20/17 22:00 07/20/17 21:59 06/26/17 00:03 0.25 MG Warfarin Sodium (Coumadin Tab) 5 mg DAILY@16 PO 06/23/17 16:00 07/23/17 15:59 Future Hold 06/25/17 15:46 5 MG Pantoprazole Sodium (Protonix Tab) 40 mg BID PO 06/23/17 21:00 07/23/17 20:59 06/26/17 08:09 40 MG Promethazine HCl (Phenergan Tab) 25 mg Q6H PRN PO 06/23/17 15:00 07/23/17 14:59 06/26/17 06:11 25 MG Vortioxetine (Trintellix) 20 mg DAILY PO 06/25/17 09:00 07/25/17 08:59 06/26/17 08:08 20 MG Acetaminophen/ Hydrocodone Bitart ([place] 5/325 Tab) 1 tab TID PO 06/25/17 14:00 07/08/17 21:44 06/26/17 06:10 1 TAB Phenazopyridine HCl (Pyridium Tab) 200 mg TID PO 06/26/17 11:30 07/26/17 11:29 06/26/17 11:56 200 MG Sodium Chloride 1,000 ml @ 200 mls/hr Q5H IV 06/26/17 11:30 06/26/17 16:29 06/26/17 11:49 200 MLS/HR
[2017-06-26] MEDS: CEFTRIAXONE SOD INJ 1 GM in DEXTROSE 5% ADD-VANTAGE 50ML 50 ML IV SCH (14:16)
[2017-06-26 15:03] VITALS: BP 116/78; PULSE 92; TEMP 36.8; O2SAT 94
[2017-06-26] MEDS: LORAZEPAM 0.5 MG TAB PO PRN (16:36)
[2017-06-26] MEDS: HYDROmorphone INJ 0.5 MG/0.5 ML SYR IV PRN (18:13)
[2017-06-26] MEDS: PRAZOSIN HCL 1 MG CAP PO SCH (20:30)
[2017-06-27 00:30] VITALS: O2SAT 94
[2017-06-27] MEDS: HYDROmorphone INJ 0.5 MG/0.5 ML SYR IV PRN ×3 (06:34→22:08)
[2017-06-27] MEDS: ONDANSETRON INJ 2 MG/ML 2 ML VIAL IV PRN ×2 (06:39→15:33)
[2017-06-27 08:22] VITALS: BP 109/63; PULSE 80; TEMP 36.9; O2SAT 94
--- NOTE | 2017-06-27 08:23 | Progress Note ---
Subjective Date of Service: Jun 27, 2017. Subjective Pt evaluation today including: conversation w/ patient, chart review, lab review Voiding: no voiding problems Patient is with bladder and left renal spasms after voiding. She has asked to be placed back on pyridium. Eating ok. She does feel overall the pain is better with the stent removed. She has been placed back on antibiotics. Urine analysis looks contaminated with skin cells. Problem List Medical Problems: (1) Asthma, Unspecified Status: Chronic (2) Bipolar Disorder, Unspecified Status: Chronic (3) Coagulopathy Status: Acute (4) Common Migraine W/O Intractable Migraine Status: Chronic (5) DVT (deep venous thrombosis) Status: Acute (6) Epilepsy, Unsp, Not Intractable, Without Status Epilepticus Status: Chronic (7) Episode of heavy vaginal bleeding Status: Acute (8) Factor V Leiden Status: Chronic (9) Failure of outpatient treatment Status: Acute (10) Hypokalemia Status: Acute (11) Left leg DVT Status: Acute (12) Left leg DVT Status: Acute (13) Left leg pain Status: Acute (14) Left ureteral calculus Status: Acute (15) Left ureteral calculus Status: Acute (16) Half-Way (Current) Use Of 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 Status: Chronic (17) Lower abdominal pain Status: Acute (18) On anticoagulant therapy Status: Acute (19) Pelvic cramping Status: Acute (20) PID (acute pelvic inflammatory disease) Status: Acute (21) Right ankle sprain Status: Acute (22) Right-sided chest pain Status: Acute (23) Shortness of breath Status: Acute (24) Shortness of breath Status: Acute Review of Systems Constitutional: No fever, No chills, No sweats, No fatigue Respiratory: No cough, No shortness of breath Cardiac: No chest pain Female : + dysuria, + urinary frequency, + problem reported (vaginal pain with voiding) Objective Vital Signs Date Time Temp Pulse Resp B/P (MAP) Pulse Ox O2 Delivery O2 Flow Rate FiO2 06/27/17 00:30 94 Room Air 06/26/17 16:00 Room Air 06/26/17 15:03 36.8 92 18 116/78 (91) 94 Room Air Physical Exam General Appearance: WD/WN, no apparent distress Eyes: normal inspection ENT: hearing grossly normal Respiratory/Chest: no respiratory distress, no accessory muscle use 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iatric: alert, normal mood/affect, oriented x 3 Skin: normal color, warm/dry, no rash Assessment and Plan left uvj stone removed with ureteroscopy I also removed her left renal stone. She is having her typical severe post-op pain. She is POD#6. she is managed mainly with po narcotics, close to her baseline dose. I think she will need iv narcotic today with the hopes of transitioning to orals tomorrow, and hopefully discharge tomorrow. Hopefully home today. see her in office in 2 weeks to order metabolic evaluation to work on stone prevention.
[2017-06-27] MEDS: TAMSULOSIN HCL 0.4 MG CAP PO SCH (09:00)
[2017-06-27] MEDS: VORTIOXETINE HBR 20 MG PO SCH (09:00)
[2017-06-27] MEDS: HYDROCODONE/ACETAMOPHEN 5/325MG TAB PO SCH ×3 (09:54→20:57)
[2017-06-27] MEDS: PANTOprazole SOD 40 MG TAB PO SCH ×2 (11:03→20:57)
[2017-06-27] MEDS: PHENAZOPYRIDINE HCL 200 MG TAB PO SCH ×3 (11:03→20:57)
[2017-06-27] MEDS: TOPIRAMATE 100 MG TAB PO SCH ×2 (11:03→20:57)
[2017-06-27] MEDS: DOCUSATE SODIUM 100 MG CAP PO SCH ×2 (11:04→20:54)
[2017-06-27] MEDS: LORAZEPAM 0.5 MG TAB PO PRN (11:36)
[2017-06-27] MEDS: CEFTRIAXONE SOD INJ 1 GM in DEXTROSE 5% ADD-VANTAGE 50ML 50 ML IV SCH (13:48)
[2017-06-27 14:00] VITALS: TEMP 36.4
--- NOTE | 2017-06-27 15:04 | Progress Note ---
Subjective Date of Service: Jun 27, 2017. Subjective Pt evaluation today including: conversation w/ patient, physical exam, lab review, review of studies, review of inpatient medication list Saw/examined the patient in room 261 continues to have L flank pain; worse with urination had some nausea/vomiting last evening tolerating her lunch today Problem List Medical Problems: (1) Asthma, Unspecified Status: Chronic (2) Bipolar Disorder, Unspecified Status: Chronic (3) Coagulopathy Status: Acute (4) Common Migraine W/O Intractable Migraine Status: Chronic (5) DVT (deep venous thrombosis) Status: Acute (6) Epilepsy, Unsp, Not Intractable, Without Status Epilepticus Status: Chronic (7) Episode of heavy vaginal bleeding Status: Acute (8) Factor V Leiden Status: Chronic (9) Failure of outpatient treatment Status: Acute (10) Hypokalemia Status: Acute (11) Left leg DVT Status: Acute (12) Left leg DVT Status: Acute (13) Left leg pain Status: Acute (14) Left ureteral calculus Status: Acute (15) Left ureteral calculus Status: Acute (16) Detention (Current) Use Of 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 Status: Chronic (17) Lower abdominal pain Status: Acute (18) On anticoagulant therapy Status: Acute (19) Pelvic cramping Status: Acute (20) PID (acute pelvic inflammatory disease) Status: Acute (21) Right ankle sprain Status: Acute (22) Right-sided chest pain Status: Acute (23) Shortness of breath Status: Acute (24) Shortness of breath Status: Acute Review of Systems Constitutional: No fever, No chills, No weakness Respiratory: No shortness of breath Cardiac: No chest pain Abdomen: + pain, + nausea, + vomiting, No diarrhea, No constipation, No GI bleeding Musculoskeletal: + joint pain (lower extremity pain) Medications Current Inpatient Medications Medications (Trade) Dose Ordered Sig/Cassy Route Start Time Stop Time Status Last Admin Dose Admin Acetaminophen (Tylenol Tab) 650 mg Q4H PRN PO 06/20/17 06:45 07/20/17 06:44 06/26/17 16:36 650 MG Ondansetron HCl (Zofran Inj) 4 mg Q6H PRN IV 06/20/17 06:45 07/20/17 06:44 06/27/17 06:39 4 MG Miscellaneous (Iv Fluids Completed) 1 ea PRN PRN N/A 06/20/17 07:00 06/20/18 06:59 Naloxone HCl (Narcan Inj) 0.1 mg Q5M PRN IV 06/20/17 09:15 07/20/17 09:14 Docusate Sodium (coLACE CAP) 100 mg BID PO 06/20/17 21:00 07/20/17 20:59 06/27/17 11:04 100 MG Polyethylene (Miralax Powder Packet) 17 gm DAILY PRN PO 06/20/17 09:15 07/20/17 09:14 06/25/17 08:11 17 GM Albuterol (Ventolin Hfa Inhaler) 2 puffs QID PRN INH 06/20/17 09:30 07/20/17 09:29 Topiramate (Topamax Tab) 200 mg BID PO 06/20/17 09:30 07/20/17 09:29 06/27/17 11:03 200 MG Tamsulosin HCl (Flomax Cap) 0.4 mg QAM PO 06/20/17 09:30 07/20/17 09:29 06/27/17 09:00 0.4 MG Prazosin HCl (Prazosin) 1 mg HS PO 06/20/17 21:00 07/20/17 20:59 06/26/17 20:30 1 MG Warfarin Sodium (Coumadin Tab) 5 mg DAILY@16 PO 06/23/17 16:00 07/23/17 15:59 Future Hold 06/25/17 15:46 5 MG Pantoprazole Sodium (Protonix Tab) 40 mg BID PO 06/23/17 21:00 07/23/17 20:59 06/27/17 11:03 40 MG Promethazine HCl (Phenergan Tab) 25 mg Q6H PRN PO 06/23/17 15:00 07/23/17 14:59 06/26/17 22:22 25 MG Vortioxetine (Trintellix) 20 mg DAILY PO 06/25/17 09:00 07/25/17 08:59 06/27/17 09:00 20 MG Acetaminophen/ Hydrocodone Bitart ([place] 5/325 Tab) 1 tab TID PO 06/25/17 14:00 07/08/17 21:44 06/27/17 09:54 1 TAB Phenazopyridine HCl (Pyridium Tab) 200 mg TID PO 06/26/17 11:30 07/26/17 11:29 06/27/17 11:03 200 MG Alprazolam (Xanax Tab) 0.25 mg HS PRN PO 06/26/17 12:30 07/26/17 12:29 06/26/17 20:29 0.25 MG Lorazepam (Ativan Tab) 0.5 mg TID PRN PO 06/26/17 12:30 07/26/17 12:29 06/27/17 11:36 0.5 MG Hydromorphone HCl (Dilaudid Inj) 0.5 mg Q4H PRN IV 06/26/17 12:30 07/10/17 12:29 06/27/17 10:58 0.5 MG Ceftriaxone Sodium 1 gm/ Dextrose 50 ml @ 100 mls/hr Q24H IV 06/26/17 13:30 07/06/17 13:29 06/27/17 13:48 100 MLS/HR Objective Vital Signs Date Time Temp Pulse Resp B/P (MAP) Pulse Ox O2 Delivery O2 Flow Rate FiO2 06/27/17 14:00 36.4 06/27/17 08:22 36.9 80 16 109/63 (78) 94 Room Air 06/27/17 07:10 Room Air 06/27/17 00:30 94 Room Air 06/26/17 16:00 Room Air 06/26/17 15:03 36.8 92 18 116/78 (91) 94 Room Air Physical Exam General Appearance: no apparent distress Respiratory/Chest: chest non-tender, lungs clear, normal breath sounds, no respiratory distress, no accessory muscle use Cardiovascular: regular rate, rhythm, no edema, no murmur Abdomen: normal bowel sounds, + tenderness (significant L flank pain) 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iatric: no motor/sensory deficits, alert, normal mood/affect Assessment and Plan This is a 46 year old female with a PMH of Factor V Leiden mutation and recurrent LE DVTs, seizure disorder, depression/anxiety, presents with L ureteral colic L obstructing stone s/p L ureteral stone, which has since been removed currently L renal colic is her main issue appreciate urology and pain management input currently on hydrocodone and Dilaudid PRN for breakthrough pain UTI possibly infected urine urine culture growing gram positive cocci continue Rocephin for now until further speciation Acute Urinary Retention - resolved Hematemesis - resolved continue PPI BID, outpatient GI Factor V Leiden Mutation Recurrent DVTs continue Coumadin, hold today due to INR >3 Seizure Disorder continue Topamax Depression continue home medications DVT ppx Coumadin FULL CODE
[2017-06-27 16:02] VITALS: BP 101/66; PULSE 69; TEMP 36.4; O2SAT 94
[2017-06-27] MEDS ORDERED: NURSING VERBAL MED ORDER ONE (18:00)
[2017-06-27] MEDS ORDERED: HYDROCODONE/ACETAMOPHEN 5/325MG TAB PO ONE (18:15)
[2017-06-27] MEDS: PRAZOSIN HCL 1 MG CAP PO SCH (20:57)
[2017-06-28] VITALS: O2SAT 94
[2017-06-28 00:09] VITALS: BP 102/56; PULSE 80; TEMP 36.7; O2SAT 94
[2017-06-28 06:53] LABS: HEMATOCRIT 41.7 % (37-47); HEMOGLOBIN 14.4 g/dL (12.0-16.0); MEAN CELL VOLUME 95.4 fL (80-100); MEAN CORPUSCULAR HGB CONC 34.5 g/dl (32-36); MEAN PLATELET VOLUME 10.5 fL (7.4-10.4); PLATELET COUNT 169 K/uL (130-400); RED CELL DISTRIBUTION WIDTH CV 12.7 % (11.5-14.5); WHITE BLOOD COUNT 5.85 K/uL (4.8-10.8)
[2017-06-28 06:58] LABS: INR 1.6 (0.9-1.1)
[2017-06-28 07:23] LABS: CALCIUM 8.4 mg/dl (8.5-10.1); CREATININE 0.86 mg/dl (0.60-1.20); POTASSIUM 3.6 mmol/L (3.5-5.1)
[2017-06-28 07:45] VITALS: BP 101/62; PULSE 71; TEMP 36.7; O2SAT 92
[2017-06-28] MEDS: PHENAZOPYRIDINE HCL 200 MG TAB PO SCH ×2 (08:22→15:26)
[2017-06-28] MEDS: HYDROCODONE/ACETAMOPHEN 5/325MG TAB PO SCH ×2 (08:22→14:24)
[2017-06-28] MEDS: LORAZEPAM 0.5 MG TAB PO PRN (08:22)
[2017-06-28] MEDS: PANTOprazole SOD 40 MG TAB PO SCH (08:23)
[2017-06-28] MEDS: TAMSULOSIN HCL 0.4 MG CAP PO SCH (08:23)
[2017-06-28] MEDS: DOCUSATE SODIUM 100 MG CAP PO SCH (08:24)
[2017-06-28] MEDS: VORTIOXETINE HBR 20 MG PO SCH (08:24)
[2017-06-28] MEDS: TOPIRAMATE 100 MG TAB PO SCH (08:25)
[2017-06-28] MEDS: ONDANSETRON INJ 2 MG/ML 2 ML VIAL IV PRN (11:17)
[2017-06-28] MEDS: CEFTRIAXONE SOD INJ 1 GM in DEXTROSE 5% ADD-VANTAGE 50ML 50 ML IV SCH (14:24)
[2017-06-28] MEDS ORDERED: KETOROLAC TROMETHAMINE 15 MG/ML VIAL IV ONE (14:30)
--- NOTE | 2017-06-28 14:37 | Progress Note ---
Subjective Date of Service: Jun 28, 2017. Subjective Pt evaluation today including: conversation w/ patient, physical exam, lab review, review of studies, review of inpatient medication list Saw/examined the patient in room 261 She's doing well today; pain improved +nausea persists She feels much better and would like to go home today Problem List Medical Problems: (1) Asthma, Unspecified Status: Chronic (2) Bipolar Disorder, Unspecified Status: Chronic (3) Coagulopathy Status: Acute (4) Common Migraine W/O Intractable Migraine Status: Chronic (5) DVT (deep venous thrombosis) Status: Acute (6) Epilepsy, Unsp, Not Intractable, Without Status Epilepticus Status: Chronic (7) Episode of heavy vaginal bleeding Status: Acute (8) Factor V Leiden Status: Chronic (9) Failure of outpatient treatment Status: Acute (10) Hypokalemia Status: Acute (11) Left leg DVT Status: Acute (12) Left leg DVT Status: Acute (13) Left leg pain Status: Acute (14) Left ureteral calculus Status: Acute (15) Left ureteral calculus Status: Acute (16) Snf (Current) Use Of 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 Status: Chronic (17) Lower abdominal pain Status: Acute (18) On anticoagulant therapy Status: Acute (19) Pelvic cramping Status: Acute (20) PID (acute pelvic inflammatory disease) Status: Acute (21) Right ankle sprain Status: Acute (22) Right-sided chest pain Status: Acute (23) Shortness of breath Status: Acute (24) Shortness of breath Status: Acute Review of Systems Respiratory: No cough, No sputum, No shortness of breath Cardiac: No chest pain Abdomen: + nausea, + vomiting, No pain (L flank pain, much improved), No diarrhea Female : No dysuria, No urinary frequency Medications Current Inpatient Medications Medications (Trade) Dose Ordered Sig/Cassy Route Start Time Stop Time Status Last Admin Dose Admin Acetaminophen (Tylenol Tab) 650 mg Q4H PRN PO 06/20/17 06:45 07/20/17 06:44 06/26/17 16:36 650 MG Ondansetron HCl (Zofran Inj) 4 mg Q6H PRN IV 06/20/17 06:45 07/20/17 06:44 06/28/17 11:17 4 MG Miscellaneous (Iv Fluids Completed) 1 ea PRN PRN N/A 06/20/17 07:00 06/20/18 06:59 Naloxone HCl (Narcan Inj) 0.1 mg Q5M PRN IV 06/20/17 09:15 07/20/17 09:14 Docusate Sodium (coLACE CAP) 100 mg BID PO 06/20/17 21:00 07/20/17 20:59 06/27/17 11:04 100 MG Polyethylene (Miralax Powder Packet) 17 gm DAILY PRN PO 06/20/17 09:15 07/20/17 09:14 06/25/17 08:11 17 GM Albuterol (Ventolin Hfa Inhaler) 2 puffs QID PRN INH 06/20/17 09:30 07/20/17 09:29 Topiramate (Topamax Tab) 200 mg BID PO 06/20/17 09:30 07/20/17 09:29 06/28/17 08:25 200 MG Tamsulosin HCl (Flomax Cap) 0.4 mg QAM PO 06/20/17 09:30 07/20/17 09:29 06/28/17 08:23 0.4 MG Prazosin HCl (Prazosin) 1 mg HS PO 06/20/17 21:00 07/20/17 20:59 06/27/17 20:57 1 MG Warfarin Sodium (Coumadin Tab) 5 mg DAILY@16 PO 06/23/17 16:00 07/23/17 15:59 Future hold 06/25/17 15:46 5 MG Pantoprazole Sodium (Protonix Tab) 40 mg BID PO 06/23/17 21:00 07/23/17 20:59 06/28/17 08:23 40 MG Promethazine HCl (Phenergan Tab) 25 mg Q6H PRN PO 06/23/17 15:00 07/23/17 14:59 06/26/17 22:22 25 MG Vortioxetine (Trintellix) 20 mg DAILY PO 06/25/17 09:00 07/25/17 08:59 06/28/17 08:24 20 MG Acetaminophen/ Hydrocodone Bitart ([place] 5/325 Tab) 1 tab TID PO 06/25/17 14:00 07/08/17 21:44 06/28/17 14:24 1 TAB Phenazopyridine HCl (Pyridium Tab) 200 mg TID PO 06/26/17 11:30 07/26/17 11:29 06/28/17 08:22 200 MG Alprazolam (Xanax Tab) 0.25 mg HS PRN PO 06/26/17 12:30 07/26/17 12:29 06/26/17 20:29 0.25 MG Lorazepam (Ativan Tab) 0.5 mg TID PRN PO 06/26/17 12:30 07/26/17 12:29 06/28/17 08:22 0.5 MG Ceftriaxone Sodium 1 gm/ Dextrose 50 ml @ 100 mls/hr Q24H IV 06/26/17 13:30 07/06/17 13:29 06/28/17 14:24 100 MLS/HR Objective Vital Signs Date Time Temp Pulse Resp B/P (MAP) Pulse Ox O2 Delivery O2 Flow Rate FiO2 06/28/17 08:15 Room Air 06/28/17 07:45 36.7 71 16 101/62 (75) 92 Room Air 06/28/17 00:09 36.7 80 18 102/56 (71) 94 Room Air 06/28/17 00:00 94 Room Air 06/27/17 19:45 Room Air 06/27/17 16:02 36.4 69 18 101/66 (78) 94 Room Air Physical Exam General Appearance: no apparent distress Respiratory/Chest: no respiratory distress, no accessory muscle use Abdomen: normal bowel sounds, non tender, soft 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iatric: no motor/sensory deficits, alert, normal mood/affect Laboratory Results Last 24 Hours Test 06/28/17 06:20 White Blood Count 5.85 K/uL Red Blood Count 4.37 M/uL Hemoglobin 14.4 g/dL Hematocrit 41.7 % Mean Corpuscular Volume 95.4 fL Mean Corpuscular Hemoglobin 33.0 pg Mean Corpuscular Hemoglobin Concent 34.5 g/dl RDW Standard Deviation 44.0 fL RDW Coefficient of Variation 12.7 % Platelet Count 169 K/uL Mean Platelet Volume 10.5 fL Prothrombin Time 16.6 SECONDS Prothromb Time International Ratio 1.6 Sodium Level 137 mmol/L Potassium Level 3.6 mmol/L Chloride Level 108 mmol/L Carbon Dioxide Level 22 mmol/L Anion Gap 7.0 mmol/L Blood Urea Nitrogen 14 mg/dl Creatinine 0.86 mg/dl Est Creatinine Clear Calc Drug Dose 78.6 ml/min Estimated GFR () 95.2 Estimated GFR (Non- 82.2 BUN/Creatinine Ratio 16.5 Random Glucose 85 mg/dl Calcium Level 8.4 mg/dl Magnesium Level 2.1 mg/dl Assessment and Plan This is a 46 year old female with a PMH of Factor V Leiden mutation and recurrent LE DVTs, seizure disorder, depression/anxiety, presents with L ureteral colic L obstructing stone 06/28 patient is doing well today, pain controlled plan to d/c home today will d/c with Ampicillin for UTI, pyridium, lactobacillus, and flomax outpatient PCP and urology f/u 06/27 s/p L ureteral stone, which has since been removed currently L renal colic is her main issue appreciate urology and pain management input currently on hydrocodone and Dilaudid PRN for breakthrough pain UTI - Enterococcal stop Rocephin and switch to Ampicillin Acute Urinary Retention - resolved Hematemesis - resolved continue PPI BID, outpatient GI Factor V Leiden Mutation Recurrent DVTs continue Coumadin, hold today due to INR >3 Seizure Disorder continue Topamax Depression continue home medications DVT ppx Coumadin FULL CODE
[2017-06-28] MEDS ORDERED: AMPI500C9 PO (14:42)
[2017-06-28] MEDS ORDERED: PHEN-1043 PO (14:42)
[2017-06-28] MEDS ORDERED: CLC100 PO (14:42)
[2017-06-28] MEDS ORDERED: PRT40 PO (14:42)
[2017-06-28] MEDS ORDERED: FLM4 PO (14:42)
[2017-06-28] MEDS ORDERED: LCTX PO (14:42)
--- NOTE | 2017-06-28 14:47 | Discharge Instructions ---
Discharge Instructions Date of Service Jun 28, 2017. Admission Reason for Admission: Urolithiasis Discharge Discharge Diagnosis / Problem: Kidney Stone, Flank Pain, UTI Discharge Goals Goal(s): Decrease discomfort, Improve function, Diagnostic testing, Therapeutic intervention Activity Recommendations Activity Limitations: resume your previous activity . Instructions / Follow-Up Instructions / Follow-Up Please follow-up with Dr. Turpin on July 03 at 2:25PM * You will be discharged with Cipro (antibiotic) - take this twice daily for seven days * Take Lactobacillus and Protonix to help with your stomach * Take Pyridium for three days and take Flomax * Outpatient follow-up with Dr. Thompson, urology, in 2 weeks * Have your INR checked early next week (due to interactions with Coumadin and antibiotics) Current Hospital Diet Patient's current hospital diet: Regular Diet Discharge Diet Recommended Diet: Regular Diet Procedures Procedures Performed: Cystoscopy, Left Ureteroscopy, Laser Lithotripsy, Basket Stone Extraction, Left Stent Placement Pending Studies Studies pending at discharge: no Medical Emergencies . Who to Call and When: Medical Emergencies: If at any time you feel your situation is an emergency, please call 911 immediately. . Non-Emergent Contact Non-Emergency issues call your: Primary Care Provider . . "Provider Documentation" section prepared by William Barber. . VTE Core Measure Inpt VTE Proph given/why not?: Warfarin (Coumadin)
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
[2017-06-28] MEDS ORDERED: CIPR-255 PO (14:59)
[2017-06-28 15:03] VITALS: BP 101/62; PULSE 71; TEMP 36.7; O2SAT 92
== END 2017-06-28 17:16 | disposition home or self-care (01) | DRG 668 ==
LOC: C.EDB 04:25 → C.MSW 06:43 → ENRESERV 07:09 → C.2T 06-21 20:43 → OBSVTOIN 06-22 11:07 → ENRESERV 06-23 15:21 → C.MED 06-23 17:50 → C.MS2W 06-27 00:19
PROVIDERS: ADMIT Internal Medicine; ATTEND Family Medicine
PROC: 0TC78ZZ Extirpation of Matter from Left Ureter, Via Natural or Artificial Opening Endoscopic (ICD-10-PCS; principal; 2017-06-21 16:30)
PROC: 0T778DZ Dilation of Left Ureter with Intraluminal Device, Via Natural or Artificial Opening Endoscopic (ICD-10-PCS; principal; 2017-06-21 16:30)
DX: N13.2 Hydronephrosis with renal and ureteral calculous obstruction (principal); K22.6 Gastro-esophageal laceration-hemorrhage syndrome; K92.0 Hematemesis; D68.51 Activated protein C resistance; T83.84XA Pain due to genitourinary prosthetic devices, implants and grafts, initial encounter; Y73.2 Prosthetic and other implants, materials and accessory gastroenterology and urology devices associated with adverse incidents; Y92.230 Patient room in hospital as the place of occurrence of the external cause; N39.0 Urinary tract infection, site not specified; B95.2 Enterococcus as the cause of diseases classified elsewhere; R33.9 Retention of urine, unspecified; E87.6 Hypokalemia; G43.909 Migraine, unspecified, not intractable, without status migrainosus; G40.909 Epilepsy, unspecified, not intractable, without status epilepticus; G89.29 Other chronic pain; M79.606 Pain in leg, unspecified; J45.909 Unspecified asthma, uncomplicated; K21.9 Gastro-esophageal reflux disease without esophagitis; F31.9 Bipolar disorder, unspecified; F41.9 Anxiety disorder, unspecified; F17.210 Nicotine dependence, cigarettes, uncomplicated; E66.3 Overweight; Z68.28 Body mass index [BMI] 28.0-28.9, adult; Z87.11 Personal history of peptic ulcer disease; Z86.711 Personal history of pulmonary embolism; Z86.718 Personal history of other venous thrombosis and embolism; Z79.01 Long term (current) use of anticoagulants; Z79.891 Long term (current) use of opiate analgesic; Z79.899 Other long term (current) drug therapy

== ENCOUNTER 2018-10-25 17:25 | Inpatient (IN) ==
[2018-10-25] MEDS ORDERED: HYDROmorphone INJ 0.5 MG/0.5 ML SYR IV STA (17:45)
[2018-10-25] MEDS ORDERED: ONDANSETRON INJ 2 MG/ML 2 ML VIAL ONE (18:38)
[2018-10-25] MEDS ORDERED: ONDANSETRON INJ 2 MG/ML 2 ML VIAL IV STA (18:57)
[2018-10-25 19:03] LABS: Basophils # (auto) 0.01 K/uL (0-0.2); Basophils % (auto) 0.1 %; Eosinophils # (auto) 0.21 K/uL (0-0.5); Eosinophils % (auto) 2.7 %; Hematocrit (blood only) 41.9 % (37-47); Hemoglobin 15.1 g/dL (12.0-16.0); Immature Granulocytes # (auto) 0.03 K/uL (0.00-0.02); Immature Granulocytes % (auto) 0.4 %; Lymphocytes % (auto) 30.9 %; Mean Corpuscular Volume 94.2 fL (80-100); Mean Platelet Volume 9.8 fL (7.4-10.4); Monocytes % (auto) 7.7 %; Neutrophils # (auto) 4.51 K/uL (1.4-6.5); Neutrophils % (auto) 58.2 %; Platelet Count 151 K/uL (130-400); RDW Coefficient of Variation 12.8 % (11.5-14.5); RDW Standard Deviation 43.9 fL (36.4-46.3); Red Blood Count 4.45 M/uL (4.2-5.4); White Blood Count 7.76 K/uL (4.8-10.8)
[2018-10-25] MEDS ORDERED: GI COCKTAIL ED USE PO ONE (19:04)
[2018-10-25 19:10] LABS: INR 3.1 (0.9-1.1); Partial Thromboplastin Ratio 1.1; Partial Thromboplastin Time 29.9 Seconds (21.0-31.0); Prothrombin Time 29.4 Seconds (9.0-12.0)
[2018-10-25 19:21] LABS: BUN Creatinine Ratio 17.5 (10-20); Blood Urea Nitrogen 13 mg/dl (7-18); Calcium 8.4 mg/dl (8.5-10.1); Carbon Dioxide 20 mmol/L (21-32); Chloride 113 mmol/L (98-107); Creatinine Clr Calc Pharmacy 88.9 ml/min; Est GFR (African American) 110.8; Est GFR (Non-African American) 95.6; Glucose 100 mg/dl (70-99); Potassium 3.5 mmol/L (3.5-5.1); Sodium 139 mmol/L (136-145)
[2018-10-25 19:26] LABS: NT Pro B Type Natriuretic Pept 22 pg/ml (0-450); Troponin I < 0.015 ng/ml (0-0.045)
[2018-10-25] MEDS ORDERED: FAMOTIDINE 20MG/5ML IV PUSH IV STA (19:35)
[2018-10-25] MEDS ORDERED: HYDROmorphone INJ 1 MG/ML SYRINGE IV STA (19:35)
--- NOTE | 2018-10-25 19:45 | Emergency Department Note ---
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 She reports she follows with Dr. Turpin and had a RUE ultrasound done earlier today which revealed a bloo d clot. She states her pain begins in her right elbow up to her shoulder with radiation to her collarbone. She notes she has associated numbness in her right fingertips. She states her last INR was yesterday and was therapeutic. The patient has a hx of Factor Five. Home Medications Home Medications Medication Instructions Recorded Confirmed Type albuterol sulfate 2 puff INHALATION QID PRN 06/02/18 10/25/18 History hydrocodone-acetaminophen 1 tab PO QID 06/02/18 10/25/18 History lorazepam 0.5 mg PO TID 06/02/18 10/25/18 History sumatriptan succinate 50 mg PO UD PRN 06/02/18 10/25/18 History topiramate 200 mg PO BID 06/02/18 10/25/18 History warfarin 5 mg PO 6XWK 06/02/18 10/25/18 History ondansetron HCl [Zofran] 4 mg PO Q6 PRN #6 tab 09/29/18 10/25/18 Rx pantoprazole 40 mg PO DAILY 09/29/18 10/25/18 History ranitidine HCl 150 mg PO BID 09/29/18 10/25/18 History warfarin 7.5 mg PO WK 09/29/18 10/25/18 History fluoxetine 40 mg PO DAILY 10/25/18 10/25/18 History meclizine 25 mg PO TID PRN 10/25/18 10/25/18 History Allergies Allergy/AdvReac Type Severity Reaction Status Date / Time kiwi Allergy Severe ANAPHYLAXIS Verified 10/25/18 19:02 metronidazole Allergy Intermediate hives Verified 10/25/18 19:02 morphine Allergy Intermediate chest Verified 10/25/18 19:02 pain; trouble breathing prochlorperazine Allergy Unknown SEVERE Verified 10/25/18 19:02 ALLERGIC RXN tree nut Allergy Anaphylaxis Verified 10/25/18 19:02 Past Med/Surg History Medical History Seizure (Chronic) Depression (Chronic) Tobacco abuse (Chronic) Ulcerative colitis Factor V Leiden (Resolved) Anticoagulated on warfarin (Chronic) DVT (deep venous thrombosis) (Acute) Pelvic inflammatory disease (Acute) Trichomonas infection (Acute) Hypokalemia (Acute) Leg pain, left (Acute) Head ache Incomplete emptying of bladder PTSD (post-traumatic stress disorder) Suicidal ideation Ureteral stone Urgency of urination Urolithiasis Surgical History History of cholecystectomy (Chronic) H/O tubal ligation (Chronic) Hx of tonsillectomy (Chronic) Family History Other Cancer Social History marital status: Current Living Situation: Family current occupational status: employed Feels Safe at Home: Yes Smoking Status: Current every day smoker Review of Systems See HPI for pertinent positives & negatives. and A total of 10 systems reviewed and were otherwise negative Physical Exam Vital Signs Vital Signs - 24 hr 10/25/18 17:30 10/25/18 18:51 10/25/18 18:54 Temperature 36.9 C Temperature Source Oral Sepsis Recent Fever Within 48 Hours Yes Sepsis Action Taken by Nursing No Action Required Pulse Rate 86 73 71 Pulse Rate from SpO2 Sensor 72 72 Respiratory Rate 16 19 15 Blood Pressure 115/80 130/83 Blood Pressure Mean 91 98 Blood Pressure Position Sitting Pulse Oximetry 96 92 91 Oxygen Delivery Method Room Air 10/25/18 19:00 10/25/18 19:10 10/25/18 19:20 Temperature Temperature Source Sepsis Recent Fever Within 48 Hours Sepsis Action Taken by Nursing Pulse Rate 77 77 77 Pulse Rate from SpO2 Sensor 76 78 78 Respiratory Rate 19 18 20 Blood Pressure Blood Pressure Mean Blood Pressure Position Pulse Oximetry 93 95 95 Oxygen Delivery Method 10/25/18 19:30 10/25/18 19:31 10/25/18 19:40 Temperature Temperature Source Sepsis Recent Fever Within 48 Hours Sepsis Action Taken by Nursing Pulse Rate 71 70 76 Pulse Rate from SpO2 Sensor 71 70 76 Respiratory Rate 12 23 17 Blood Pressure 140/85 130/90 Blood Pressure Mean 103 103 Blood Pressure Position Pulse Oximetry 95 96 96 Oxygen Delivery Method 10/25/18 19:50 10/25/18 20:00 10/25/18 20:01 Temperature Temperature Source Sepsis Recent Fever Within 48 Hours Sepsis Action Taken by Nursing Pulse Rate 73 70 78 Pulse Rate from SpO2 Sensor 72 71 78 Respiratory Rate 16 14 13 Blood Pressure 110/76 Blood Pressure Mean 87 Blood Pressure Position Pulse Oximetry 96 93 94 Oxygen Delivery Method 10/25/18 20:10 10/25/18 20:11 10/25/18 20:20 Temperature Temperature Source Sepsis Recent Fever Within 48 Hours Sepsis Action Taken by Nursing Pulse Rate 77 85 71 Pulse Rate from SpO2 Sensor 74 82 71 Respiratory Rate 14 23 16 Blood Pressure 139/79 Blood Pressure Mean 99 Blood Pressure Position Pulse Oximetry 94 94 95 Oxygen Delivery Method GENERAL: Awake, alert, somewhat anxious-appearing, in no distress HENT: Normocephalic, atraumatic. EYES: Normal conjunctiva. Sclera non-icteric. RESPIRATORY: Trachea midline. Clear to auscultation. Normal respiratory effort. CARDIAC: Normal rate. Normal rhythm. Extremities warm and well perfused. GI: Soft, non-distended. No tenderness to palpation. No rebound or guarding. No masses. RECTAL: Deferred. MUSCULOSKELETAL: Atraumatic. Chest examination reveals no tenderness. LOWER EXTREMITIES: Calves are equal size bilaterally and non-tender. No edema UPPER EXTREMITIES: Tenderness of the RUE. 2+ radial pulse. Gross sensation intact. No bruising. 1+ swelling of the LLE. NEURO: No sensory or motor deficits noted. No facial droop or slurred speech. SKIN: Warm and dry. No rash or jaundice noted. Course 1736: Past medical records reviewed. The patient was evaluated in room C1. A complete history and physical examination was performed. 1926: I discussed the patient's case with Dr. Escalera, Hematology. She recommends the patient be further evaluated to consider different anticoagulation tomorrow. 1934: The patient is now having more epigastric pain. I discussed the treatment plan with her. She is agreeable to staying. 1938: I discussed the patients case with Lily Cisneros Hospitalist. He will evaluate the patient for further management. Administered Medications Heparin Sodium (Beef Lung) (Heparin Sod 10 Unit/Ml Flush) 10 ml FLUSH PRN PRN PRN Reason: Flush Stop: 11/24/18 18:06 Last Admin: 10/25/18 19:44 Dose: 5 ml Documented by: [id number] Discontinued Medications Al Hydrox/Mg Hydrox/Simethicone () 1 dose PO ONE ONE Stop: 10/25/18 19:05 Last Admin: 10/25/18 19:12 Dose: 1 dose Documented by: [id number] Famotidine (Pepcid 20mg Iv Push) 20 mg IV ONE STA Stop: 10/25/18 19:36 Last Admin: 10/25/18 19:42 Dose: 20 mg Documented by: [id number] Hydromorphone HCl (Dilaudid) 1 mg IV NOW STA Stop: 10/25/18 17:46 Last Admin: 10/25/18 18:44 Dose: 1 mg Documented by: [id number] Hydromorphone HCl (Dilaudid) 1 mg IV NOW STA Stop: 10/25/18 19:36 Last Admin: 10/25/18 19:43 Dose: 1 mg Documented by: [id number] Ondansetron HCl (Zofran) Confirm Administered Dose 4 mg .ROUTE .STK-MED ONE Stop: 10/25/18 18:39 Last Admin: 10/25/18 18:44 Dose: 4 mg Documented by: [id number] Ondansetron HCl (Zofran) 4 mg IV NOW STA Stop: 10/25/18 18:58 Last Admin: 10/25/18 18:59 Dose: Not Given Documented by: [id number] Medical Decision Making Differential Diagnosis Differential diagnosis: Etiologies such as DVT, musculoskeletal, infection, joint effusion, trauma, lymphedema, idiopathic, CHF, as well as others were entertained. Medical Records Attestation: I reviewed the patient's medical records. Home Medications Current Medication List: was personally reviewed by me Laboratory Data Attestation: I reviewed the patient's lab results. Result diagrams: 10/25/18 18:39 10/25/18 18:39 Lab Results 10/25/18 10/25/18 10/25/18 Range/Units 18:39 18:39 18:39 WBC 7.76 (4.8-10.8) K/uL RBC 4.45 (4.2-5.4) M/uL Hgb 15.1 (12.0-16.0) g/dL Hct 41.9 (37-47) % MCV 94.2 (80-100) fL MCH 33.9 (25-34) pg MCHC 36.0 (32-36) g/dL RDW Std Deviation 43.9 (36.4-46.3) fL RDW Coeff of Vik 12.8 (11.5-14.5) % Plt Count 151 (130-400) K/uL MPV 9.8 (7.4-10.4) fL Immature Gran % (Auto) 0.4 % Neut % (Auto) 58.2 % Lymph % (Auto) 30.9 % [place] % (Auto) 7.7 % Eos % (Auto) 2.7 % Baso % (Auto) 0.1 % Immature Gran # (Auto) 0.03 H (0.00-0.02) K/uL Neut # (Auto) 4.51 (1.4-6.5) K/uL Lymph # (Auto) 2.40 (1.2-3.4) K/uL [place] # (Auto) 0.60 H (0.11-0.59) K/uL Eos # (Auto) 0.21 (0-0.5) K/uL Baso # (Auto) 0.01 (0-0.2) K/uL PT 29.4 H (9.0-12.0) Seconds INR 3.1 H (0.9-1.1) APTT 29.9 (21.0-31.0) Seconds PTT Ratio 1.1 Sodium 139 (136-145) mmol/L Potassium 3.5 (3.5-5.1) mmol/L Chloride 113 H (98-107) mmol/L Carbon Dioxide 20 L (21-32) mmol/L Anion Gap 6.0 (3-11) BUN 13 (7-18) mg/dl Creatinine 0.75 (0.6-1.2) mg/dl Est Cr Clr Drug Dosing 88.9 ml/min Est GFR ( Amer) 110.8 Est GFR (Non-Af Amer) 95.6 BUN/Creatinine Ratio 17.5 (10-20) Glucose 100 H (70-99) mg/dl Calcium 8.4 L (8.5-10.1) mg/dl Total Bilirubin 0.2 (0.2-1) mg/dl Direct Bilirubin < 0.1 (0-0.2) mg/dl AST 16 (15-37) U/L ALT 24 (12-78) U/L Alkaline Phosphatase 50 (45-117) U/L Troponin I < 0.015 (0-0.045) ng/ml NT-Pro-B Natriuret Pep 22 (0-450) pg/ml Total Protein 6.4 (6.4-8.2) gm/dl Albumin 3.2 L (3.4-5.0) gm/dl Lipase 153 (73-393) U/L ECG Data Attestation: I personally reviewed and interpreted this ECG as follows: Indication: other (right arm pain) Rate (beats per minute): 67 Rhythm: normal sinus Findings: no ST depression and no ST elevation Comparison ECG Date: from (09/29/18 ) Change: no significant change Blood Pressure Blood Pressure Findings: Normal blood pressure Blood Pressure Disposition: did not require urgent referral MDM Narrative Patient is a 48-year-old female with a history of factor V Leiden, kidney stone, ulcerative colitis presenting today complaining of significant pain in her right upper arm of the last 2 days. Denies trauma. Outpatient ultrasound shows extensive clot in this upper arm. Is therapeutic with an INR 3.1 on Coumadin. Has had lower extremity blood clots before per her report. Denies significant shortness of breath but states little bit of lower chest discomfort initially. Initial evaluation here reveals no significant EKG changes and negative troponin. No evidence of acute leukocytosis or anemia. INR is actually slightly again supratherapeutic at 3.1. No proBNP elevation. Not acutely hypoxic. Lower suspicion for acute PE given this. Again talked with hematology who recommended that she be observed overnight and discuss possible change in agents tomorrow. Would not recommend other heparin drip or Lovenox at this time given the INR of 3.1. Has been some issues with subtherapeutic INR as of the past months. Patient on reevaluation was experiencing additional epigastric pain. Lipase was sent as well as hepatic function and wnl. Chest xray wnl. Pepcid and GI cocktail was given. Lower suspicion is acutely cardiac but believe further pain control and observation is warranted. Doubt acute surgical intra-abdominal pathology. Discussed with the hospitalist for admission for further evaluation. Impression & Plan Acute deep vein thrombosis (DVT) of right upper extremity, Epigastric abdominal pain Discharge Plan Visit Data Chief Complaint: Arm Pain Stated Complaint: BLOOD CLOT IN RIGHT UPPER ARM ED Provider: Mookie Lopez Discharge Problem: Acute deep vein thrombosis (DVT) of right upper extremity, Epigastric abdominal pain Patient Disposition: Being Evaluated by Hospitalist Forms Stand Alone Forms: My [facility] Prescriptions Prescriptions: No Action hydrocodone-acetaminophen 5-325 mg tablet 1 tab PO QID RF: 0 sumatriptan succinate 50 mg tablet 50 mg PO UD PRN (Reason: Migraine Headache) RF: 0 lorazepam 0.5 mg tablet 0.5 mg PO TID RF: 0 warfarin 5 mg tablet 5 mg PO [id number] RF: 0 topiramate 200 mg tablet 200 mg PO BID RF: 0 albuterol sulfate 90 mcg/actuation Hfa Aerosol Inhaler 2 puff INHALATION QID PRN (Reason: Shortness Of Breath Or Wheezing) RF: 0 pantoprazole 40 mg tablet,delayed release (DR/EC) 40 mg PO DAILY RF: 0 ranitidine HCl 150 mg tablet 150 mg PO BID RF: 0 warfarin 5 mg Tablet 7.5 mg PO WK RF: 0 ondansetron HCl [Zofran] 4 mg tablet 4 mg PO Q6 PRN (Reason: nausea and vomiting) Qty: 6 RF: 0 meclizine 25 mg tablet 25 mg PO TID PRN (Reason: Dizziness) RF: 0 fluoxetine 40 mg capsule 40 mg PO DAILY RF: 0 Referrals Referrals: Rula Turpin MD [Primary Care Provider] - Discharge Problem: Acute deep vein thrombosis (DVT) of right upper extremity Qualifiers: Affected thrombotic vein of extremity: unspecified vein of extremity Qualified Code(s): I82.621 - Acute embolism and thrombosis of deep veins of right upper extremity The scribe's documentation has been prepared under my direction and personally reviewed by me in its entirety. I confirm that the note above accurately reflects all work, treatment, procedures, and medical decision making performed by me.
[2018-10-25 19:54] LABS: Alanine Aminotransferase 24 U/L (12-78); Albumin Level 3.2 gm/dl (3.4-5.0); Alkaline Phosphatase 50 U/L (45-117); Aspartate Aminotransferase 16 U/L (15-37); Bilirubin Direct < 0.1 mg/dl (0-0.2); Bilirubin,Total 0.2 mg/dl (0.2-1); Total Protein 6.4 gm/dl (6.4-8.2)
--- NOTE | 2018-10-25 20:05 | XRay Report ---
XR chest 1V portable CLINICAL HISTORY: epigastric pain COMPARISON STUDY: 09/29/2018 FINDINGS: The cardiac and mediastinal contours are normal. There is no evidence of focal pulmonary co nsolidation. There is no evidence of failure. No pleural effusions are visualized.[ No free air is vi sualized. IMPRESSION: No active disease in the chest. Electronically signed by: Dae Davis M.D. 10/25/2018 8:04 PM
[2018-10-25] MEDS ORDERED: ACETAMINOPHEN 325 MG TAB PO PRN (22:30)
[2018-10-25] MEDS ORDERED: MECLIZINE HCL 25 MG TAB PO PRN (22:30)
[2018-10-25] MEDS ORDERED: SUMAtriptan succinate 50 MG TAB PO PRN (22:30)
[2018-10-25] MEDS ORDERED: ALBUTEROL HFA 8 GM INHALER INH PRN (22:30)
[2018-10-25] MEDS: HYDROmorphone INJ 0.5 MG/0.5 ML SYR IV PRN (23:21)
--- NOTE | 2018-10-26 00:40 | History and Physical Report ---
DATE OF ADMISSION: 10/25/2018 CHIEF COMPLAINT: Right upper extremity pain, found to have DVT. HISTORY OF PRESENT ILLNESS: This is a 48-year-old female with past medical history significant for recurrent deep vein thrombosis with one episode of pulmonary embolism, the first episode was when she was 18 and found to have factor V Leiden deficiency, history of ulcerative colitis questionable, not on any medications, posttraumatic stress disorder, depression, some issues with noncompliance to Coumadin because Coumadin clinic has terminated her contract because she was no show, but she says she is taking them regularly. Coumadin is 3.1 today. She is having right upper extremity pain for the last 2 days and venous Doppler done today showed extensive cephalic vein thrombus extending from the distal forearm to the confluence with axillary vein. ER talked with Dr. Carrizales, hand laminator and was advised , as her INR is 3.1, to observe overnight in the hospital and will be decided to start on a newer medication in the a.m. Patient has pain in her right arm. No other complaint. Denies any headache, no blurred visions, no earaches, no runny nose, no sore throat, no difficulty swallowing. Appetite is okay. No chest pain, no shortness of breath, no cough, no fever, no chills, no nausea, no abdominal pain. Normal bowel and bladder movements. No blood in the stools, no black stools, no hematuria, no burning micturition. No swelling in the legs. No rash. Currently, resting comfortable and hemodynamically stable. ALLERGIES: KIWI, METRONIDAZOLE, MORPHINE, PROCHLORPERAZINE, TREE NUT. PAST MEDICAL HISTORY: As mentioned above. PAST SURGICAL HISTORY: Cystourethroscopy with lithotripsy, laparoscopic cholecystectomy, ligation of the oviduct, tonsillectomy. MEDICATIONS: The patient is on hydrocodone/acetaminophen 5/325 mg one tablet every 6 hours p.r.n., fluoxetine 40 mg p.o. daily, meclizine 25 mg p.o. t.i.d. p.r.n., Zofran 4 mg every 6 hours p.r.n., Ativan 0.5 mg p.o. t.i.d. p.r.n., Coumadin 7.5 mg on Sundays and 5 mg all other days, Protonix 40 mg p.o. daily, Zantac 150 mg p.o. b.i.d., Imitrex 50 mg p.r.n., Topamax 200 mg p.o. b.i.d., Prozac 10 mg, albuterol 2 puffs 4 times a day, Colace 100 mg p.o. b.i.d. FAMILY HISTORY: Significant for mother has endocrine disorder. SOCIAL HISTORY: . Quit smoking, smoked quarter pack a day for 10 years. No alcohol use, no drug use. REVIEW OF SYMPTOMS: As per HPI. Rest of the review of symptoms negative. PHYSICAL EXAMINATION: GENERAL: The patient is of moderate build, not in acute distress. VITAL SIGNS: Temperature 36.9, pulse 74, respiratory rate 16, blood pressure 103/71, oxygen 95% on room air. HEENT: No pallor, no icterus. Pupils equal, round, and reactive to light. NECK: No JVD, no neck masses, no carotid bruit. CARDIOVASCULAR: S1, S2 heard, regular rate and rhythm, no murmur, no gallop. RESPIRATORY SYSTEM: Normal AP diameter. No accessory muscle use. No wheezing, no crackles. ABDOMEN: Soft, bowel sounds present. Nontender. No distention. CENTRAL NERVOUS SYSTEM: Cranial nerves II-XII grossly intact. Nonfocal. EXTREMITIES: Right upper extremity is swollen and tender. No erythema seen. LABORATORIES: WBC 7.7, hemoglobin 15.1, hematocrit 41.9, platelets 151. PT 29.4, INR 3.1, APTT 29.1. Sodium 139, potassium 3.5, chloride 113, bicarbonate 20, BUN 13, creatinine 0.75. Serum glucose 100, calcium 8.4, total bilirubin 0.2, direct bilirubin less than 0.1, AST 16, ALT 24, alkaline phosphatase 50. Troponin I less than 0.015. Lipase 173. BNP 22. IMAGING DATA: Chest x-ray, no acute disease in the chest. US:Extensive cephalic vein thrombus extending from the distal forearm to the confluence with axillary vein. EKG: Normal sinus rhythm with sinus arrhythmia at a rate of 67. No significant change from previous EKG. ASSESSMENT AND PLAN: This is a 48-year-old female with factor V Leiden deficiency, multiple episodes of DVTs and one episode of PE, on Coumadin. There is a question of compliance with Coumadin. Presents with right upper extremity pain for last 2 days and found to have deep venous thrombosis and INR is 3.1. 1. Right upper extremity deep venous thrombosis. INR is 3.1, question of failed Coumadin therapy. Hem/onc wants to observe overnight and plan possible change of anticoagulation medication in the a.m. Pain control. Monitor in the medical floor. 2. Depression. Continue Prozac. 3. Anxiety. Continue Ativan p.r.n. 4. Gastroesophageal reflux disease. Continue PPI and Zantac. 5. History of seizures, on Topamax. 6. Tobacco abuse, needs counseling. 7. Albuterol p.r.n. 8. Deep venous thrombosis prophylaxis. INR 3.1. DISPOSITION: Closely monitor in the medical floor. Level 1 full code. MTDD
[2018-10-26] MEDS: LORazepam 0.5 MG TAB PO PRN ×3 (00:55→20:26)
[2018-10-26] MEDS: HYDROmorphone INJ 0.5 MG/0.5 ML SYR IV PRN ×3 (02:19→11:15)
[2018-10-26] MEDS: HYDROCODONE/ACETAMOPHEN 5/325MG TAB PO PRN ×2 (04:32→13:14)
[2018-10-26] MEDS ORDERED: HYDROmorphone INJ 0.5 MG/0.5 ML SYR IV STA (04:39)
[2018-10-26 05:22] LABS: Basophils # (auto) 0.02 K/uL (0-0.2); Basophils % (auto) 0.4 %; Eosinophils # (auto) 0.15 K/uL (0-0.5); Eosinophils % (auto) 3.2 %; Hematocrit (blood only) 41.6 % (37-47); Immature Granulocytes # (auto) 0.03 K/uL (0.00-0.02); Immature Granulocytes % (auto) 0.6 %; Lymphocytes # (auto) 1.82 K/uL (1.2-3.4); Lymphocytes % (auto) 38.5 %; Mean Corpuscular Hgb Conc 36.1 g/dL (32-36); Mean Corpuscular Volume 94.8 fL (80-100); Mean Platelet Volume 9.8 fL (7.4-10.4); Monocytes % (auto) 12.7 %; Neutrophils # (auto) 2.11 K/uL (1.4-6.5); Neutrophils % (auto) 44.6 %; Platelet Count 145 K/uL (130-400); RDW Coefficient of Variation 12.8 % (11.5-14.5); Red Blood Count 4.39 M/uL (4.2-5.4); White Blood Count 4.73 K/uL (4.8-10.8)
[2018-10-26 05:40] LABS: INR 4.2 (0.9-1.1); Prothrombin Time 38.6 Seconds (9.0-12.0)
[2018-10-26 05:45] LABS: BUN Creatinine Ratio 15.9 (10-20); Creatinine Clr Calc Pharmacy 77.1 ml/min; Est GFR (African American) 92.6; Est GFR (Non-African American) 79.9; Magnesium 2.1 mg/dl (1.8-2.4); Potassium 3.7 mmol/L (3.5-5.1)
[2018-10-26] MEDS ORDERED: OPTIRAY 320 125ml IV PRN (09:10)
[2018-10-26] MEDS: FLUOXETINE HCL 20 MG CAP PO SCH (09:14)
[2018-10-26] MEDS: PANTOprazole 40 MG TAB PO SCH (09:14)
[2018-10-26] MEDS: TOPIRAMATE 100 MG TAB PO SCH ×2 (09:14→20:27)
--- NOTE | 2018-10-26 09:24 | CT Scan Report ---
CT ANGIOGRAPHY OF THE CHEST, PULMONARY EMBOLUS PROTOCOL CLINICAL HISTORY: Pleuritic chest pain. COMPARISON STUDY: Chest CT July 2016. Chest radiograph October 25, 2018. TECHNIQUE: Following IV administration of 109 mL of Optiray-320, helical axial images of the chest we re obtained utilizing the pulmonary embolus protocol. Maximal intensity projections and sagittal and coronal reformats were viewed on an independent 3D workstation. IV contrast was administered withou t complication. Automated exposure control was utilized for the study. A dose lowering technique wa s utilized adhering to the principles of ALARA. CT DOSE: 529.64 mGycm FINDINGS: Note is made of a pulmonary embolus within the pulmonary artery to the right upper lobe wh ich extends into several segmental branches. There is no CT evidence for right heart strain. There is no pulmonary infarct. No pneumothorax or pleural effusion is noted. The size of the heart is normal. There is no pericardial effusion. A few lung nodules are unchanged since CT of January 12, 2016. Theref ore, these are benign. Cholecystectomy clips are noted. IMPRESSION: Acute appearing pulmonary embolus within the right upper lobe pulmonary artery extending into several segmental branches. Electronically signed by: Louis Roberts M.D. 10/26/2018 9:22 AM
--- NOTE | 2018-10-26 13:54 | Hospitalist Progress Note ---
Date of Service October 26, 2018 Assessment & Plan (1) Acute pulmonary embolism: (2) Acute deep vein thrombosis (DVT) of right upper extremity: (3) Factor V Leiden: (4) Epigastric abdominal pain: (5) Seizure: (6) Depression: (7) Tobacco abuse: (8) Ulcerative colitis: Patient's INR 4.2, Warfarin Failure, Lovenox 1 mg/Kg SC q12, Heme/Onc eval, Xarelto or Eliquis CTA Chest Pos for PE Results & Data Vital Signs (Past 12 Hours) Vital Signs Temp Pulse Resp BP Pulse Ox 10/26/18 07:06 37.1 C 78 16 106/73 97 Allergies kiwi Allergy (Severe, Verified 10/25/18 19:02) ANAPHYLAXIS metronidazole Allergy (Intermediate, Verified 10/25/18 19:02) hives morphine Allergy (Intermediate, Verified 10/25/18 19:02) chest pain; trouble breathing prochlorperazine Allergy (Unknown, Verified 10/25/18 19:02) SEVERE ALLERGIC RXN tree nut Allergy (Verified 10/25/18 19:02) Anaphylaxis Height/Weight/Isolation Height 5 ft 2 in Weight 75.9 kg Chemistry 10/25/18 10/26/18 18:39 05:08 Sodium 139 139 Potassium 3.5 3.7 Chloride 113 H 113 H Carbon Dioxide 20 L 25 Anion Gap 6.0 1.0 L BUN 13 14 Creatinine 0.75 0.87 Glucose 100 H 112 H (1) Acute deep vein thrombosis (DVT) of right upper extremity Affected thrombotic vein of extremity: unspecified vein of extremity Qualified Code(s): I82.621 - Acute embolism and thrombosis of deep veins of right upper extremity
[2018-10-26] MEDS ORDERED: ENOXAPARIN 1 MG/KG SC SCH (14:00)
[2018-10-26] MEDS: HYDROmorphone INJ 1 MG/ML SYRINGE IV PRN ×4 (14:33→23:51)
[2018-10-26] MEDS ORDERED: ALBUT/IPRATROP 3MG/0.5MG NEB 3 ML VIAL NEB PRN (14:45)
[2018-10-26] MEDS ORDERED: Heparin Adult STANDARD Wt-Based Dextrose 5% 25,000 units/500 mL IV SCH (15:45)
--- NOTE | 2018-10-26 16:24 | Oncology Consultation ---
Date of Consultation October 26, 2018 Impression: 48 year old female with history of recurrent venous thromboembolic events, heterozygous for Factor V leiden mutation, on 06/02/18 INR1.7, 09/29/18 INR was 1.0 had an IV in ER and reports that there was some pain in the right forearm after that, she resumed coumadin alone and now presents with extensive cephalic vein thrombosis extending to confluence of axillary vein and found to have pulmonary embolism, now with a supratherapeutic INR. Recommend heparin drip and transition to lovenox 1mg/kg SC Q12 when INR is be tween 2 to 3 she will need indefinite anticoagulation. Eliquis or xarelto are alternative options for oral anticoagulation if this is affordable and since she had not been having close monitoring of PT/INR on coumadin, multiple subtherapeutic levels in 2018 and on 09/29/18, but she will need to follow up closely with her leg breaker and public speaking instructor as she reports history of ulcerative colitis and reports that she has had GI bleed in the past when it flares. Recommend follow up with Dr Geremias Turpin and coagulation clinic upon discharge for her halfway anticoagulation management and rechecking her Protein C and S levels when she is off coumadin to clarify if there is a deficiency or not. recommend follow up with her public speaking instructor regarding ulcerative colitis check venous doppler of lower extremities to rule out DVT thank you for consult. recommendations discussed with Dr Richardson Reason for consult: RUE cephalic vein thrombosis extending to confluence of axillary vein, pulmonary embolism with a supratherapeutic INR patient with Factor V leiden mutation, History of Present Illness Attending Physician: Charanjit Richardson DO HPI: 48 year old female, heterozygous for Factor V leiden mutation, history of multiple DVTs and PE in 2012, and she has been on coumadin since that time. She states that at age 18 she had her first DVT on Oral contraceptives and took coumadin for about 6 months. She said after that she has had multiple thrombotic complications involving her legs per patient more than 10, said up to about 18 times. She took lovenox and heparin therapy during her pregnancies and states that she did not have any complications with the pregnancies. In 06/24/13 she was admitted to [facility] with Pulmonary embolism and bilateral lower extremity DVT and has been taking coumadin since that time. 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 She admits that she has not been getting INRs monitored frequently, states that there was a time when she did not have insurance and that led to her to getting it checked but said that she still took her coumadin during that time. She said in Late August she was having dizziness and fell 3 times so she stopped taking her coumadin then and she went to ER on 09/29/17 for evaluation and was prescribed meclizine. She states that the dizziness resolved and she resumed taking coumadin. She said she took coumadin yesterday. She said she had an IV in the right arm when she went to ER in 09/2018 and that after that visit she noticed pain in the right forearm. She states that she went to her PCP for follow up after ER visit and used ice on the arm since pain was still ongoing. She said after a while the pain went away but then for several days she notice pain and tenderness of Right upper extremity, states that it goes up the right arm and across her clavicle/upper chest and swelling. She states that she did not get much sleep for past few days due to pain in the right arm. She states that she also noticed pain across her back, pleuritic and felt some shortness of breath, that she is unable to take deep breaths. She states that she was diagnosed with ulcerative colitis and irritable bowel but she is not on treatment for it at this time She states that she has not had a bout of it for a while but she gets blood in stool when it is active INR 10/05/17 was 1.55 INR 01/11/18was 2.7 INR 09/29/18 was 1.0 INR 10/11/18 was 2.06 INR 10/25/18 3.1 INR 10/26/[address] scan chest shows: Acute appearing pulmonary embolus within the right upper lobe pulmonary artery extending into several segmental branches. venous doppler: Extensive cephalic vein thrombus extending from the distal forearm to the confluence with the axillary vein. There is no direct axillary vein involvement. She does not know of any other family members with blood clots. She does not know paternal family history. She states that her mother does not have factor V leiden and that she has no siblings. She states that her oldest daughter was positive for factor V leiden. Allergies Allergy/AdvReac Type Severity Reaction Status Date / Time kiwi Allergy Severe ANAPHYLAXIS Verified 10/25/18 19:02 metronidazole Allergy Intermediate hives Verified 10/25/18 19:02 morphine Allergy Intermediate chest Verified 10/25/18 19:02 pain; trouble breathing prochlorperazine Allergy Unknown SEVERE Verified 10/25/18 19:02 ALLERGIC RXN tree nut Allergy Anaphylaxis Verified 10/25/18 19:02 Home Medications Home Medications Medication Instructions Recorded Confirmed Type albuterol sulfate 2 puff INHALATION QID PRN 06/02/18 10/25/18 History hydrocodone-acetaminophen 1 tab PO QID PRN 06/02/18 10/25/18 History lorazepam 0.5 mg PO TID PRN 06/02/18 10/25/18 History sumatriptan succinate 50 mg PO UD PRN 06/02/18 10/25/18 History topiramate 200 mg PO BID 06/02/18 10/25/18 History warfarin 5 mg PO 6XWK 06/02/18 10/25/18 History ondansetron HCl [Zofran] 4 mg PO Q6 PRN #6 tab 09/29/18 10/25/18 Rx pantoprazole 40 mg PO DAILY 09/29/18 10/25/18 History ranitidine HCl 150 mg PO BID 09/29/18 10/25/18 History warfarin 7.5 mg PO WK 09/29/18 10/25/18 History fluoxetine 40 mg PO DAILY 10/25/18 10/25/18 History meclizine 25 mg PO TID PRN 10/25/18 10/25/18 History Patient History Medical History Seizure (Chronic) Depression (Chronic) Tobacco abuse (Chronic) Ulcerative colitis Factor V Leiden (Resolved) Anticoagulated on warfarin (Chronic) DVT (deep venous thrombosis) (Acute) Pelvic inflammatory disease (Acute) Trichomonas infection (Acute) Hypokalemia (Acute) Leg pain, left (Acute) Head ache Incomplete emptying of bladder PTSD (post-traumatic stress disorder) Suicidal ideation Ureteral stone Urgency of urination Urolithiasis Surgical History History of cholecystectomy (Chronic) H/O tubal ligation (Chronic) Hx of tonsillectomy (Chronic) Family History Other Cancer Social History Preferred Language: Welsh Communication Ability: Effective Resident Care Director Required: Yes Beliefs That Will Affect Care: None marital status: Current Living Situation: Alone current occupational status: employed Feels Safe at Home: Yes Smoking Status: Light tobacco smoker Hx Substance Use: No Review of Systems Review of Systems: as stated per HPI otherwise negative 10 point ROS Physical Exam Physical Exam: Gen: awake and alert NAD HEENT: anicteric no pallor Lungs: Clear bilaterally no wheezes rales or rhonchi CV: S1 S2 Regular rate and rhythm Abd: +BS soft Nontender nondistended Ext: 1+edema of left lower extremity, she reports that this has been for a long time, swelling and tenderness of right upper extremity Neuro: alert and oriented x3 Results & Data Vital Signs (Past 12 Hours) Vital Signs Temp Pulse Resp BP Pulse Ox 10/26/18 14:58 36.8 C 76 16 101/67 96 10/26/18 07:06 37.1 C 78 16 106/73 97 Laboratory Results Abnormal lab results 10/25/18 10/25/18 10/25/18 Range/Units 18:39 18:39 18:39 WBC (4.8-10.8) K/uL MCH (25-34) pg MCHC (32-36) g/dL Immature Gran # (Auto) 0.03 H (0.00-0.02) K/uL [place] # (Auto) 0.60 H (0.11-0.59) K/uL PT 29.4 H (9.0-12.0) Seconds INR 3.1 H (0.9-1.1) Chloride 113 H (98-107) mmol/L Carbon Dioxide 20 L (21-32) mmol/L Anion Gap (3-11) Glucose 100 H (70-99) mg/dl Calcium 8.4 L (8.5-10.1) mg/dl Albumin 3.2 L (3.4-5.0) gm/dl 10/26/18 10/26/18 10/26/18 Range/Units 05:08 05:08 05:08 WBC 4.73 L (4.8-10.8) K/uL MCH 34.2 H (25-34) pg MCHC 36.1 H (32-36) g/dL Immature Gran # (Auto) 0.03 H (0.00-0.02) K/uL [place] # (Auto) 0.60 H (0.11-0.59) K/uL PT 38.6 H (9.0-12.0) Seconds INR 4.2 H (0.9-1.1) Chloride 113 H (98-107) mmol/L Carbon Dioxide (21-32) mmol/L Anion Gap 1.0 L (3-11) Glucose 112 H (70-99) mg/dl Calcium 8.0 L (8.5-10.1) mg/dl Albumin (3.4-5.0) gm/dl
[2018-10-26] MEDS: Heparin IV Standard *NO* Bolus IV SCH ×2 (16:34→16:39)
[2018-10-26 16:57] LABS: Basophils # (auto) 0.03 K/uL (0-0.2); Basophils % (auto) 0.6 %; Eosinophils # (auto) 0.22 K/uL (0-0.5); Eosinophils % (auto) 4.6 %; Hematocrit (blood only) 42.7 % (37-47); Hemoglobin 15.3 g/dL (12.0-16.0); Immature Granulocytes # (auto) 0.01 K/uL (0.00-0.02); Immature Granulocytes % (auto) 0.2 %; Lymphocytes % (auto) 37.7 %; Mean Corpuscular Volume 95.1 fL (80-100); Mean Platelet Volume 9.7 fL (7.4-10.4); Monocytes # (auto) 0.56 K/uL (0.11-0.59); Monocytes % (auto) 11.7 %; Neutrophils # (auto) 2.15 K/uL (1.4-6.5); Neutrophils % (auto) 45.2 %; Platelet Count 146 K/uL (130-400); RDW Coefficient of Variation 12.9 % (11.5-14.5); RDW Standard Deviation 44.4 fL (36.4-46.3); Red Blood Count 4.49 M/uL (4.2-5.4); White Blood Count 4.77 K/uL (4.8-10.8)
[2018-10-26 17:08] LABS: Mean Corpuscular Hgb Conc 35.8 g/dL (32-36)
[2018-10-26 17:17] LABS: INR 4.2 (0.9-1.1); Partial Thromboplastin Ratio 1.3; Prothrombin Time 38.7 Seconds (9.0-12.0)
--- NOTE | 2018-10-26 20:20 | Ultrasound Report ---
BILATERAL LOWER EXTREMITY VENOUS DOPPLER CLINICAL HISTORY: rule out DVT, PE and RUE cephalic vein thrombosis COMPARISON STUDY: Left lower extremity venous Doppler June 12, 2018. Bilateral lower extremity v enous Doppler July 2016. TECHNIQUE: Sonography of the deep venous system of the bilateral lower extremities was performed. Co mpression and augmentation were evaluated. FINDINGS: The right common femoral, superficial femoral and popliteal veins were compressible. Augme ntation was normal. Flow was shown within the deep calf vessels. Note was made of stranding within th e left common femoral and superficial femoral veins which is similar to previous exam. This suggests chronic thrombus. IMPRESSION: 1. No evidence for acute deep venous thrombus within either lower extremity. 2. No change in chronic thrombus within the left lower extremity since ultrasound of June 02, 2018 . Electronically signed by: Louis Roberts M.D. 10/26/2018 8:18 PM
[2018-10-26 23:12] LABS: Partial Thromboplastin Ratio 1.5; Partial Thromboplastin Time 40.1 Seconds (21.0-31.0)
[2018-10-26] MEDS ORDERED: HEPARIN IV BOLUS 5,000 UNITS in SYRINGE 0 ML IV ONE (23:45)
[2018-10-27] MEDS: HYDROmorphone INJ 1 MG/ML SYRINGE IV PRN ×5 (02:27→15:26)
[2018-10-27] MEDS: LORazepam 0.5 MG TAB PO PRN (04:37)
[2018-10-27] MEDS: HYDROCODONE/ACETAMOPHEN 5/325MG TAB PO PRN ×2 (04:37→11:45)
[2018-10-27 06:29] LABS: Hematocrit (blood only) 42.8 % (37-47); Hemoglobin 15.6 g/dL (12.0-16.0); Mean Corpuscular Hgb Conc 36.4 g/dL (32-36); Mean Corpuscular Volume 94.1 fL (80-100); Mean Platelet Volume 9.9 fL (7.4-10.4); Platelet Count 125 K/uL (130-400); RDW Coefficient of Variation 12.8 % (11.5-14.5); RDW Standard Deviation 44.1 fL (36.4-46.3); Red Blood Count 4.55 M/uL (4.2-5.4)
[2018-10-27 07:15] LABS: BUN Creatinine Ratio 12.7 (10-20); Calcium 8.6 mg/dl (8.5-10.1); Creatinine Clr Calc Pharmacy 88.2 ml/min; Est GFR (Non-African American) 94.1; Potassium 3.7 mmol/L (3.5-5.1)
[2018-10-27] MEDS: FLUOXETINE HCL 20 MG CAP PO SCH (08:00)
[2018-10-27] MEDS: PANTOprazole 40 MG TAB PO SCH (08:00)
[2018-10-27] MEDS: TOPIRAMATE 100 MG TAB PO SCH ×2 (08:00→20:42)
[2018-10-27 09:34] LABS: INR 3.2 (0.9-1.1); Partial Thromboplastin Ratio > 5.1; Prothrombin Time 30.3 Seconds (9.0-12.0)
[2018-10-27 09:36] LABS: Partial Thromboplastin Time > 139.0 Seconds (21.0-31.0)
[2018-10-27] MEDS ORDERED: HEPARIN 100 UNIT/ML 5ML FLUSH FLUSH PRN (10:45)
[2018-10-27 11:34] LABS: Partial Thromboplastin Ratio > 5.1
[2018-10-27 11:37] LABS: Partial Thromboplastin Time > 139.0 Seconds (21.0-31.0)
--- NOTE | 2018-10-27 12:04 | Hospitalist Progress Note ---
Date of Service October 27, 2018 Assessment & Plan (1) Acute pulmonary embolism: (2) Acute deep vein thrombosis (DVT) of right upper extremity: (3) Factor V Leiden: (4) Epigastric abdominal pain: (5) Seizure: (6) Depression: (7) Tobacco abuse: (8) Ulcerative colitis: Patient's INR 3.2, Warfarin Failure, Lovenox 1 mg/Kg SC q12, Heme/Onc on case, CM to get Xarelto or Eliquis approved CTA Chest Pos for PE ROS-No Headache, No Visual Changes, No Nausea, No Vomiting, No Fever, No Chills, No Neck Pain or Stiffness, +Pleuritic Chest Pain, No Palpitations, + SOB, + BURGESS, No Cough, No Sputum, No Wheezing, No Abdominal Pain, No Diarrhea, No Hematemesis, No Hemoptysis, No Unexpected Weight Loss, No Flank pain, No Melena, No Hematochezia, No Frequency, No Urgency, No Burning, No Hematuria, No Rashes, No Diaphoresis. Appetite is Normal Physical Exam Gen-AAO x 3, NAD, Afebrile Head-NCAT, EOMI, PERRLA, Anicteric Sclera, No Posterior Pharyngeal Erythema Neck-Supple, No JVD, No Thyromegaly, No Masses, No LAD, No Bruits Lungs-Clear to Auscultation Bilaterally, No Rales, No Rhonchi, No Wheezing, No Crepitus Chest-No S4, +S1, +S2, No S3, No Murmurs, No Rubs, No Gallops, No Ectopy Abdomen-Soft, Bowel Sounds Present, Non Tender, Non Distended, No Hepatomegaly, No Splenomegaly, No Palpable Masses, No Rebound, No Rigidity, No Guarding Musculoskeletal-Full Range of Motion Bilaterally, No CVAT Extremities-No Cyanosis, No Clubbing, No Edema Nuero-Cranial Nerves II-XII grossly intact, Motor WNL, DTRs WNL, Strength WNL, Non Focal Psych-Anxious DC 1-2 days on either Xarelto or Eliquis Results & Data Vital Signs (Past 12 Hours) Vital Signs Temp Pulse Pulse Resp BP BP Pulse Ox 10/27/18 11:44 36.6 C 84 111/76 96 10/27/18 07:25 89 10/27/18 05:16 36.8 C 95 H 20 138/87 96 10/27/18 00:45 73 Current Diagnoses Activated protein C resistance (10/25/18) Major depressive disorder, single episode, unspecified (10/25/18) Other pulmonary embolism without acute cor pulmonale (10/25/18) Acute embolism and thrombosis of deep veins of right upper extremity (10/25/18) Ulcerative colitis, unspecified, without complications (10/25/18) Epigastric pain (10/25/18) Unspecified convulsions (10/25/18) Tobacco use (10/25/18) Allergies kiwi Allergy (Severe, Verified 10/25/18 19:02) ANAPHYLAXIS metronidazole Allergy (Intermediate, Verified 10/25/18 19:02) hives morphine Allergy (Intermediate, Verified 10/25/18 19:02) chest pain; trouble breathing prochlorperazine Allergy (Unknown, Verified 10/25/18 19:02) SEVERE ALLERGIC RXN tree nut Allergy (Verified 10/25/18 19:02) Anaphylaxis Height/Weight/Isolation Height 5 ft 2 in Weight 75.9 kg Chemistry 10/25/18 10/26/18 10/27/18 18:39 05:08 06:10 Sodium 139 139 141 Potassium 3.5 3.7 3.7 Chloride 113 H 113 H 113 H Carbon Dioxide 20 L 25 22 Anion Gap 6.0 1.0 L 6.0 BUN 13 14 10 Creatinine 0.75 0.87 0.76 Glucose 100 H 112 H 109 H (1) Acute deep vein thrombosis (DVT) of right upper extremity Affected thrombotic vein of extremity: unspecified vein of extremity Qualified Code(s): I82.621 - Acute embolism and thrombosis of deep veins of right upper extremity
[2018-10-27] MEDS: ENOXAPARIN 80 MG/0.8 ML SYR SQ SCH ×2 (12:21→20:42)
[2018-10-27] MEDS: HYDROmorphone HCL 2 MG TAB PO PRN ×2 (18:15→22:20)
[2018-10-27] MEDS: ONDANSETRON INJ 2 MG/ML 2 ML VIAL IV PRN (22:43)
[2018-10-28] MEDS: HYDROmorphone HCL 2 MG TAB PO PRN ×2 (02:42→07:18)
[2018-10-28] MEDS: ONDANSETRON INJ 2 MG/ML 2 ML VIAL IV PRN (05:53)
[2018-10-28 07:17] LABS: Hematocrit (blood only) 43.1 % (37-47); Hemoglobin 15.6 g/dL (12.0-16.0); Mean Corpuscular Hgb Conc 36.2 g/dL (32-36); Mean Corpuscular Volume 93.9 fL (80-100); Platelet Count 143 K/uL (130-400); RDW Coefficient of Variation 12.7 % (11.5-14.5); RDW Standard Deviation 43.8 fL (36.4-46.3); Red Blood Count 4.59 M/uL (4.2-5.4); White Blood Count 6.53 K/uL (4.8-10.8)
[2018-10-28] MEDS: PANTOprazole 40 MG TAB PO SCH (07:18)
[2018-10-28] MEDS: ENOXAPARIN 80 MG/0.8 ML SYR SQ SCH (07:19)
[2018-10-28] MEDS: TOPIRAMATE 100 MG TAB PO SCH (07:20)
[2018-10-28] MEDS: FLUOXETINE HCL 20 MG CAP PO SCH (07:20)
[2018-10-28] MEDS: LORazepam 0.5 MG TAB PO PRN (07:27)
[2018-10-28 07:31] LABS: INR 1.9 (0.9-1.1)
[2018-10-28 07:51] LABS: BUN Creatinine Ratio 12.2 (10-20); Calcium 8.5 mg/dl (8.5-10.1); Creatinine Clr Calc Pharmacy 72.1 ml/min; Est GFR (African American) 85.4; Est GFR (Non-African American) 73.7; Potassium 3.7 mmol/L (3.5-5.1)
--- NOTE | 2018-10-28 10:49 | Discharge Summary ---
Date of Service October 28, 2018 Admission HPI Per Admitting Provider 48-year-old female with past medical history significant for recurrent deep vein thrombosis with one episode of pulmonary embolism, the first episode was when she was 18 and found to have factor V Leiden deficiency, history of ulcerative colitis questionable, not on any medications, posttraumatic stress disorder, depression, some issues with noncompliance to Coumadin because Coumadin clinic has terminated her contract because she was no show, but she says she is taking them regularly. Coumadin is 3.1 today. She is having right upper extremity pain for the last 2 days and venous Doppler done today showed extensive cephalic vein thrombus extending from the distal forearm to the confluence with axillary vein. ER talked with Dr. Carrizales, warehouse analyst and was advised , as her INR is 3.1, to observe overnight in the hospital and will be decided to start on a newer medication in the a.m. Patient has pain in her right arm. No other complaint. Denies any headache, no blurred visions, no earaches, no runny nose, no sore throat, no difficulty swallowing. Appetite is okay. No chest pain, no shortness of breath, no cough, no fever, no chills, no nausea, no abdominal pain. Normal bowel and bladder movements. No blood in the stools, no black stools, no hematuria, no burning micturition. No swelling in the legs. No rash. Currently, resting comfortable and hemodynamically stable. Admission Exam Per Admitting Provider PHYSICAL EXAMINATION: GENERAL: The patient is of moderate build, not in acute distress. VITAL SIGNS: Temperature 36.9, pulse 74, respiratory rate 16, blood pressure 103/71, oxygen 95% on room air. HEENT: No pallor, no icterus. Pupils equal, round, and reactive to light. NECK: No JVD, no neck masses, no carotid bruit. CARDIOVASCULAR: S1, S2 heard, regular rate and rhythm, no murmur, no gallop. RESPIRATORY SYSTEM: Normal AP diameter. No accessory muscle use. No wheezing, no crackles. ABDOMEN: Soft, bowel sounds present. Nontender. No distention. CENTRAL NERVOUS SYSTEM: Cranial nerves II-XII grossly intact. Nonfocal. EXTREMITIES: Right upper extremity is swollen and tender. No erythema seen. Principal Diagnosis PE DVT Seizures Depression Factor V Chronic Pain PTSD Discharge Exam ROS-No Headache, No Visual Changes, No Nausea, No Vomiting, No Fever, No Chills, No Neck Pain or Stiffness, +Pleuritic Chest Pain, No Palpitations, + SOB, + BURGESS, No Cough, No Sputum, No Wheezing, No Abdominal Pain, No Diarrhea, No Hematemesis, No Hemoptysis, No Unexpected Weight Loss, No Flank pain, No Melena, No Hematochezia, No Frequency, No Urgency, No Burning, No Hematuria, No Rashes, No Diaphoresis. Appetite is Normal Physical Exam Gen-AAO x 3, NAD, Afebrile Head-NCAT, EOMI, PERRLA, Anicteric Sclera, No Posterior Pharyngeal Erythema Neck-Supple, No JVD, No Thyromegaly, No Masses, No LAD, No Bruits Lungs-Clear to Auscultation Bilaterally, No Rales, No Rhonchi, No Wheezing, No Crepitus Chest-No S4, +S1, +S2, No S3, No Murmurs, No Rubs, No Gallops, No Ectopy Abdomen-Soft, Bowel Sounds Present, Non Tender, Non Distended, No Hepatomegaly, No Splenomegaly, No Palpable Masses, No Rebound, No Rigidity, No Guarding Musculoskeletal-Full Range of Motion Bilaterally, No CVAT Extremities-No Cyanosis, No Clubbing, No Edema Nuero-Cranial Nerves II-XII grossly intact, Motor WNL, DTRs WNL, Strength WNL, Non Focal Psych-Anxious Discharge Data Allergies Allergy/AdvReac Type Severity Reaction Status Date / Time kiwi Allergy Severe ANAPHYLAXIS Verified 10/25/18 19:02 metronidazole Allergy Intermediate hives Verified 10/25/18 19:02 morphine Allergy Intermediate chest Verified 10/25/18 19:02 pain; trouble breathing prochlorperazine Allergy Unknown SEVERE Verified 10/25/18 19:02 ALLERGIC RXN tree nut Allergy Anaphylaxis Verified 10/25/18 19:02 Consultations 10/25/18 19:38 ED Decision to Admit Stat 10/26/18 08:00 Consult Hematology Routine 10/26/18 13:46 Consult Case Management - Discharge Planning Routine Ordered Studies 10/26/18 08:28 CT angio chest PE protocol Stat 10/26/18 16:02 US venous doppler LE BI Stat Current Diagnoses Activated protein C resistance (10/25/18) Major depressive disorder, single episode, unspecified (10/25/18) Other pulmonary embolism without acute cor pulmonale (10/25/18) Acute embolism and thrombosis of deep veins of right upper extremity (10/25/18) Ulcerative colitis, unspecified, without complications (10/25/18) Epigastric pain (10/25/18) Unspecified convulsions (10/25/18) Tobacco use (10/25/18) Allergies kiwi Allergy (Severe, Verified 10/25/18 19:02) ANAPHYLAXIS metronidazole Allergy (Intermediate, Verified 10/25/18 19:02) hives morphine Allergy (Intermediate, Verified 10/25/18 19:02) chest pain; trouble breathing prochlorperazine Allergy (Unknown, Verified 10/25/18 19:02) SEVERE ALLERGIC RXN tree nut Allergy (Verified 10/25/18 19:02) Anaphylaxis Height/Weight/Isolation Height 5 ft 2 in Weight 75.9 kg Chemistry 10/27/18 10/28/18 06:10 07:05 Sodium 141 137 Potassium 3.7 3.7 Chloride 113 H 110 H Carbon Dioxide 22 21 Anion Gap 6.0 6.0 BUN 10 11 Creatinine 0.76 0.93 Glucose 109 H 110 H Hospital Course (1) Acute pulmonary embolism: (2) Acute deep vein thrombosis (DVT) of right upper extremity: (3) Factor V Leiden: (4) Epigastric abdominal pain: (5) Seizure: (6) Depression: (7) Tobacco abuse: (8) Ulcerative colitis: Patient's INR 3.2, Warfarin Failure, DC Today on Xarelto CTA Chest Pos for PE ROS-No Headache, No Visual Changes, No Nausea, No Vomiting, No Fever, No Chills, No Neck Pain or Stiffness, +Pleuritic Chest Pain, No Palpitations, + SOB, + BURGESS, No Cough, No Sputum, No Wheezing, No Abdominal Pain, No Diarrhea, No Hematemesis, No Hemoptysis, No Unexpected Weight Loss, No Flank pain, No Melena, No Hematochezia, No Frequency, No Urgency, No Burning, No Hematuria, No Rashes, No Diaphoresis. Appetite is Normal Physical Exam Gen-AAO x 3, NAD, Afebrile Head-NCAT, EOMI, PERRLA, Anicteric Sclera, No Posterior Pharyngeal Erythema Neck-Supple, No JVD, No Thyromegaly, No Masses, No LAD, No Bruits Lungs-Clear to Auscultation Bilaterally, No Rales, No Rhonchi, No Wheezing, No Crepitus Chest-No S4, +S1, +S2, No S3, No Murmurs, No Rubs, No Gallops, No Ectopy Abdomen-Soft, Bowel Sounds Present, Non Tender, Non Distended, No Hepatomegaly, No Splenomegaly, No Palpable Masses, No Rebound, No Rigidity, No Guarding Musculoskeletal-Full Range of Motion Bilaterally, No CVAT Extremities-No Cyanosis, No Clubbing, No Edema Nuero-Cranial Nerves II-XII grossly intact, Motor WNL, DTRs WNL, Strength WNL, Non Focal Psych-Anxious DC 1-2 days on either Xarelto or Eliquis Total Time Total Time Spent Total Time Spent (In Minutes): 45 min Total Time Includes: Examination of the Patient, Discharge Planning, Medication Reconciliation and Communication With Other Providers Discharge Plan Discharge Items Patient Disposition: Home - Self-Care Reason For Visit: RIGHT ARM PAIN Discharge Diagnosis: PE DVT Seizures Depression Factor V Chronic Pain PTSD Condition: Good Discharge Goals: Improve disease control Activity: Resume your previous activity Lifting: Gradually increase as tolerated Bathing: No limitations Sexual Activity: When tolerated Exercise/Sports: Gradually increase as tolerated Driving/Machine Use: No limitations Weightbearing: Left weightbearing and Right weightbearing Non-emergency contact: Primary Care Provider and Oncologist Call non-emergency contact if: you have any medication questions and your symptoms worsen Follow-up/Referrals: Rula Turpin MD [Primary Care Provider] - Geremias Turpin MD [Surgeon] - (1-2 weeks) Diet: Regular Addtl Provider Instructions: As clinically dictates Prescriptions: New hydrocodone-acetaminophen [[place]] 5-325 mg Tablet 1 tab PO QID PRN (Reason: pain) Qty: 30 RF: 0 Xarelto 15 mg tablet 15 mg PO BID 21 Days Qty: 42 RF: 0 prochlorperazine maleate [Compazine] 10 mg tablet 10 mg PO Q8H Qty: 20 RF: 0 Continued sumatriptan succinate 50 mg tablet 50 mg PO UD PRN (Reason: Migraine Headache) RF: 0 lorazepam 0.5 mg tablet 0.5 mg PO TID PRN (Reason: Anxiety) RF: 0 topiramate 200 mg tablet 200 mg PO BID RF: 0 albuterol sulfate 90 mcg/actuation Hfa Aerosol Inhaler 2 puff INHALATION QID PRN (Reason: Shortness Of Breath Or Wheezing) RF: 0 pantoprazole 40 mg tablet,delayed release (DR/EC) 40 mg PO DAILY RF: 0 ranitidine HCl 150 mg tablet 150 mg PO BID RF: 0 ondansetron HCl [Zofran] 4 mg tablet 4 mg PO Q6 PRN (Reason: nausea and vomiting) Qty: 6 RF: 0 meclizine 25 mg tablet 25 mg PO TID PRN (Reason: Dizziness) RF: 0 fluoxetine 40 mg capsule 40 mg PO DAILY RF: 0 Discontinued hydrocodone-acetaminophen 5-325 mg tablet 1 tab PO QID PRN (Reason: Pain) RF: 0 warfarin 5 mg tablet 5 mg PO [id number] RF: 0 warfarin 5 mg Tablet 7.5 mg PO WK RF: 0 Stand-Alone Forms: [facility], Work/School Release (Inpt) Discharge Orders: Discharge Order (Routine); Ordered 10/28/18 Ordered By: Charanjit Richardson Skilled Items Patient informed of condition?: Yes DNR: No Admission Data Admit Date/Time: 10/25/18 21:45 Attending Provider: Charanjit Richardson Admit Provider: Bharat Webber Primary Care Provider: Rula Turpin. Other Providers: Bharat Webber ; Kim Carrizales ; Geremias Turpin ; Elise Barnes Service: Telemetry
== END 2018-10-28 11:53 | disposition home or self-care (01) | DRG 299 ==
LOC: ED 17:25 → 4W 21:45 → 2S 10-26 16:58

== ENCOUNTER 2018-11-04 17:35 | Inpatient (IN) ==
[2018-11-04] MEDS ORDERED: ONDANSETRON INJ 2 MG/ML 2 ML VIAL IV STA (17:46)
[2018-11-04] MEDS ORDERED: SODIUM CHLORIDE 0.9% 1000ML 1,000 ML IV ONE (17:46)
[2018-11-04] MEDS ORDERED: HYDROmorphone INJ 0.5 MG/0.5 ML SYR IV STA ×2 (17:46→19:48)
--- NOTE | 2018-11-04 18:17 | Emergency Department Note ---
Entered by Candy Albright acting as a scribe for Richi Kaplan DO History of Present Illness General Chief complaint: Abdominal Pain Stated complaint: ABD. PAIN, NAUSEA, VOMITING Source: patient Limitations: no limitations History of Present Illness Provider complaint: abdominal pain Onset (ago): hour(s) Location: abdomen Radiation: back Maximum Pain Intensity: 8 Exacerbated By: + movement Associated symptoms: + denies other symptoms (leg swelling, weight loss), + weakness and + other (+diarrhea, +cramping, +rectal bleeding, +back pain ); no fever/chills Treatments prior to arrival: other (+pain medicine ) The patient is a 48-year-old female who presented to the emergency department for an evaluation of abdominal pain and back pain. The patient states her symptoms began a few hours ago. The pain is constant but intermittently worsens with abdominal cramping and diarrhea. The patient has noticed some rectal bleeding. She was recently changed from Coumadin to Xarelto for history of factor V Leiden as well as venous thrombi embolic disease. The patient states that she took a dose of her pain medication without improvement of her pain. She denies having any fevers or chills. She denies having any swelling in the legs or weight loss. She does feel generally weak and states that she is likely dehydrated because of the amount of diarrhea she has had. She has not seen her primary care physician for the symptoms. She states the pain is worsened with ambulation. She does have some back pain as well and states that she has a history of kidney stones. Home Medications Home Medications Medication Instructions Recorded Confirmed Type albuterol sulfate 2 puff INHALATION QID PRN 06/02/18 11/04/18 History lorazepam 0.5 mg PO TID PRN 06/02/18 11/04/18 History sumatriptan succinate 50 mg PO UD PRN 06/02/18 11/04/18 History topiramate 200 mg PO BID 06/02/18 11/04/18 History ondansetron HCl [Zofran] 4 mg PO Q6 PRN #6 tab 09/29/18 11/04/18 Rx pantoprazole 40 mg PO DAILY 09/29/18 11/04/18 History ranitidine HCl 150 mg PO BID 09/29/18 11/04/18 History fluoxetine 40 mg PO DAILY 10/25/18 11/04/18 History meclizine 25 mg PO TID PRN 10/25/18 11/04/18 History hydrocodone-acetaminophen [[place]] 1 tab PO QID PRN #30 tab 10/28/18 11/04/18 Rx rivaroxaban [Xarelto] 10 mg PO BID 11/04/18 11/04/18 History Allergies Allergy/AdvReac Type Severity Reaction Status Date / Time kiwi Allergy Severe ANAPHYLAXIS Verified 10/25/18 19:02 metronidazole Allergy Intermediate hives Verified 10/25/18 19:02 morphine Allergy Intermediate chest Verified 10/25/18 19:02 pain; trouble breathing prochlorperazine Allergy Unknown SEVERE Verified 10/25/18 19:02 ALLERGIC RXN tree nut Allergy Anaphylaxis Verified 10/25/18 19:02 Past Med/Surg History Medical History Chronic anticoagulation (Chronic) Pulmonary embolism (Chronic) Recurrent deep vein thrombosis (DVT) (Chronic) Seizure (Chronic) Depression (Chronic) Tobacco abuse (Chronic) Ulcerative colitis (Chronic) Factor V Leiden (Resolved) PTSD (post-traumatic stress disorder) (Chronic) Suicidal ideation (Resolved) Ureteral stone (Resolved) Surgical History History of cholecystectomy (Chronic) H/O tubal ligation (Chronic) Hx of tonsillectomy (Chronic) Family History Mother Dyslipidemia Social History Preferred Language: Belarusian Communication Ability: Effective 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 and A total of 10 systems reviewed and were otherwise negative Physical Exam Vital Signs Vital Signs - 24 hr 11/04/18 17:38 11/04/18 19:00 11/04/18 20:07 Temperature 36.9 C Temperature Source Oral Sepsis Recent Fever Within 48 Hours No Sepsis New/Unexplained Change in Mental Status No Sepsis Action Taken by Nursing No Action Required Pulse Rate 97 H 82 Pulse Rate [Bilateral] 78 Pulse Rhythm [Bilateral] Regular Pulse Strength [Bilateral] Normal Respiratory Rate 18 19 20 Respiratory Effort / Characteristics Non-Labored Spontaneous Non-Labored Spontaneous Respiratory Depth Normal Normal Respiratory Pattern Regular Blood Pressure 139/92 130/77 Blood Pressure [Left Arm] 119/65 Blood Pressure Mean 107 94 Blood Pressure Mean [Left Arm] 83 Blood Pressure Position Sitting Blood Pressure Position [Left Arm] Sitting Pulse Oximetry 97 94 Oxygen Delivery Method Room Air Room Air 11/04/18 22:30 11/04/18 23:11 11/04/18 23:58 Temperature 36.5 C Temperature Source Oral Sepsis Recent Fever Within 48 Hours Sepsis New/Unexplained Change in Mental Status Sepsis Action Taken by Nursing Pulse Rate 68 Pulse Rate [Bilateral] 65 72 Pulse Rhythm [Bilateral] Regular Pulse Strength [Bilateral] Normal Respiratory Rate 18 18 20 Respiratory Effort / Characteristics Non-Labored Spontaneous Respiratory Depth Normal Normal Respiratory Pattern Regular Blood Pressure 90/56 L Blood Pressure [Left Arm] 102/63 107/74 Blood Pressure Mean Blood Pressure Mean [Left Arm] 76 85 Blood Pressure Position Blood Pressure Position [Left Arm] Lying Lying Pulse Oximetry 94 96 Oxygen Delivery Method Room Air Room Air Room Air 11/05/18 00:15 Temperature Temperature Source Sepsis Recent Fever Within 48 Hours Sepsis New/Unexplained Change in Mental Status Sepsis Action Taken by Nursing Pulse Rate Pulse Rate [Bilateral] Pulse Rhythm [Bilateral] Pulse Strength [Bilateral] Respiratory Rate Respiratory Effort / Characteristics Non-Labored SOB on Exertion Respiratory Depth Normal Respiratory Pattern Regular Blood Pressure Blood Pressure [Left Arm] Blood Pressure Mean Blood Pressure Mean [Left Arm] Blood Pressure Position Blood Pressure Position [Left Arm] Pulse Oximetry Oxygen Delivery Method Room Air GENERAL: Patient is awake and alert. She is having significant pain. She appears very uncomfortable. EYES: The conjunctivae are clear. The pupils are round and reactive. EARS, NOSE, MOUTH AND THROAT: The nose is without any evidence of any deformity. Mucous membranes are moist tongue is midline NECK: The neck is nontender and supple. RESPIRATORY: Normal respiratory effort is noted there is no evidence of wheezing rhonchi or rales CARDIOVASCULAR: Regular rate and rhythm noted there no murmurs rubs or gallops normal S1 normal S2 GASTROINTESTINAL: The abdomen is moderately distended and diffusely tender. There is specific guarding in both lower quadrants. BACK: No midline tenderness or or step-off noted range of motion in flexion extension as well as rotation no signs of muscle spasm noted MUSCULOSKELETAL/EXTREMITIES: There is no evidence of gross deformity full range of motion is noted in the hips and shoulders SKIN: There is no obvious evidence of any rash. There are no petechiae, pallor or cyanosis noted. NEUROLOGIC: Patient is awake alert and oriented x3 strength is symmetric patellar reflexes are 2+ bilaterally Course 1750: The patient was evaluated in room A3, and a complete history and physical examination were performed. 2014: I checked on and updated the patient on her results. 2120: I discussed the patient's case with Dr. Chelo Bautista Hospitalist who will evaulate the patient for further hospitalization. Consultations Consultation #1: Dr. Chelo Bales Time: 21:21 Administered Medications Heparin Sodium (Porcine) (Heparin Sod 100 Unit/Ml Flush) 5 ml IV PRN PRN PRN Reason: Undecided Stop: 12/05/18 00:19 Last Admin: 11/05/18 00:38 Dose: 5 ml Documented by: [id number] Hydromorphone HCl (Dilaudid) 0.5 mg IV Q4H PRN PRN Reason: Pain Stop: 11/18/18 22:01 Last Admin: 11/04/18 23:59 Dose: 0.5 mg Documented by: [id number] Admin: 11/04/18 22:07 Dose: 0.5 mg Documented by: [id number] Discontinued Medications Famotidine (Pepcid 20mg Iv Push) 20 mg IV ONE STA Stop: 11/04/18 22:01 Last Admin: 11/04/18 22:07 Dose: 20 mg Documented by: [id number] Hydromorphone HCl (Dilaudid) 0.5 mg IV NOW STA Stop: 11/04/18 17:47 Last Admin: 11/04/18 18:52 Dose: 0.5 mg Documented by: [id number] Hydromorphone HCl (Dilaudid) 0.5 mg IV NOW STA Stop: 11/04/18 19:49 Last Admin: 11/04/18 20:03 Dose: 0.5 mg Documented by: [id number] Sodium Chloride (Nss 1000ml) 1,000 mls @ 999 mls/hr IV .Q1H1M ONE Stop: 11/04/18 18:46 Last Infusion: 11/04/18 20:08 Dose: 0 mls/hr Documented by: [id number] Admin: 11/04/18 18:53 Dose: 999 mls/hr Documented by: [id number] Ampicillin Sodium/Sulbactam Sodium 3,000 mg/ Sodium Chloride 108 mls @ 200 mls/hr IV NOW STA Stop: 11/04/18 22:00 Last Infusion: 11/04/18 22:47 Dose: 0 mls/hr Documented by: [id number] Admin: 11/04/18 22:07 Dose: 200 mls/hr Documented by: [id number] Ioversol (Optiray 320 100ml) 94 ml IV ONCE PRN PRN Reason: Interaction Checking Stop: 11/08/18 19:39 Last Admin: 11/04/18 19:41 Dose: 94 ml Documented by: [id number] Ketorolac Tromethamine (Toradol) 15 mg IV NOW ONE Stop: 11/04/18 22:29 Last Admin: 11/04/18 23:59 Dose: 15 mg Documented by: [id number] Ondansetron HCl (Zofran) 4 mg IV NOW STA Stop: 11/04/18 17:47 Last Admin: 11/04/18 18:52 Dose: 4 mg Documented by: [id number] Potassium Chloride (Klor-Con M20) 40 meq PO NOW STA Stop: 11/04/18 21:24 Last Admin: 11/04/18 21:37 Dose: 40 meq Documented by: [id number] Medical Decision Making Differential Diagnosis Differential diagnosis: Etiologies such as biliary colic, cholecystitis, hepatitis, perihepatitis, pancreatitis, cardiac disease, pancreatitis, gastritis, peptic ulcer disease, appendicitis, ovarian cyst, ovarian torsion, ectopic , pelvic inflammatory disease, cystitis, diverticulitis, mesenteric ischemia, inflammatory bowel disease, ileus, bowel obstruction, aortic pathology, shingles, as well as others were considered. Medical Records Attestation: I reviewed the patient's medical records. Home Medications Current Medication List: was personally reviewed by me Laboratory Data Attestation: I reviewed the patient's lab results. Result diagrams: 11/04/18 23:55 11/04/18 18:57 Lab Results 11/04/18 11/04/18 11/04/18 Range/Units 17:46 18:00 18:57 WBC 9.91 (4.8-10.8) K/uL RBC 4.66 (4.2-5.4) M/uL Hgb 16.0 (12.0-16.0) g/dL Hct 43.9 (37-47) % MCV 94.2 (80-100) fL MCH 34.3 H (25-34) pg MCHC 36.4 H (32-36) g/dL RDW Std Deviation 43.5 (36.4-46.3) fL RDW Coeff of Vik 12.7 (11.5-14.5) % Plt Count 212 (130-400) K/uL MPV 9.8 (7.4-10.4) fL Immature Gran % (Auto) 0.6 % Neut % (Auto) 75.1 % Lymph % (Auto) 15.0 % [place] % (Auto) 7.8 % Eos % (Auto) 1.3 % Baso % (Auto) 0.2 % Immature Gran # (Auto) 0.06 H (0.00-0.02) K/uL Neut # (Auto) 7.44 H (1.4-6.5) K/uL Lymph # (Auto) 1.49 (1.2-3.4) K/uL [place] # (Auto) 0.77 H (0.11-0.59) K/uL Eos # (Auto) 0.13 (0-0.5) K/uL Baso # (Auto) 0.02 (0-0.2) K/uL PT 10.9 (9.0-12.0) Seconds INR 1.1 (0.9-1.1) APTT 25.6 (21.0-31.0) Seconds PTT Ratio 0.9 Sodium (136-145) mmol/L Potassium (3.5-5.1) mmol/L Chloride (98-107) mmol/L Carbon Dioxide (21-32) mmol/L Anion Gap (3-11) BUN (7-18) mg/dl Creatinine (0.6-1.2) mg/dl Est Cr Clr Drug Dosing ml/min Est GFR ( Amer) Est GFR (Non-Af Amer) BUN/Creatinine Ratio (10-20) Glucose (70-99) mg/dl Calcium (8.5-10.1) mg/dl Magnesium (1.8-2.4) mg/dl Total Bilirubin (0.2-1) mg/dl AST (15-37) U/L ALT (12-78) U/L Alkaline Phosphatase (45-117) U/L Total Protein (6.4-8.2) gm/dl Albumin (3.4-5.0) gm/dl Globulin (2.5-4.0) gm/dl Albumin/Globulin Ratio (0.9-2) Lipase (73-393) U/L Stl C. diff Tox B Gene Negative Cdiff Gene (Neg) Blood Type Antibody Screen 11/04/18 11/04/18 11/04/18 Range/Units 18:57 18:57 23:55 WBC (4.8-10.8) K/uL RBC (4.2-5.4) M/uL Hgb (12.0-16.0) g/dL Hct (37-47) % MCV (80-100) fL MCH (25-34) pg MCHC (32-36) g/dL RDW Std Deviation (36.4-46.3) fL RDW Coeff of Vik (11.5-14.5) % Plt Count (130-400) K/uL MPV (7.4-10.4) fL Immature Gran % (Auto) % Neut % (Auto) % Lymph % (Auto) % [place] % (Auto) % Eos % (Auto) % Baso % (Auto) % Immature Gran # (Auto) (0.00-0.02) K/uL Neut # (Auto) (1.4-6.5) K/uL Lymph # (Auto) (1.2-3.4) K/uL [place] # (Auto) (0.11-0.59) K/uL Eos # (Auto) (0-0.5) K/uL Baso # (Auto) (0-0.2) K/uL PT (9.0-12.0) Seconds INR (0.9-1.1) APTT (21.0-31.0) Seconds PTT Ratio Sodium 141 (136-145) mmol/L Potassium 3.4 L (3.5-5.1) mmol/L Chloride 112 H (98-107) mmol/L Carbon Dioxide 22 (21-32) mmol/L Anion Gap 7.0 (3-11) BUN 14 (7-18) mg/dl Creatinine 0.98 (0.6-1.2) mg/dl Est Cr Clr Drug Dosing 67.9 ml/min Est GFR ( Amer) 80.2 Est GFR (Non-Af Amer) 69.2 BUN/Creatinine Ratio 14.7 (10-20) Glucose 118 H (70-99) mg/dl Calcium 8.7 (8.5-10.1) mg/dl Magnesium 2.1 (1.8-2.4) mg/dl Total Bilirubin 0.4 (0.2-1) mg/dl AST 14 L (15-37) U/L ALT 34 (12-78) U/L Alkaline Phosphatase 87 (45-117) U/L Total Protein 7.2 (6.4-8.2) gm/dl Albumin 3.4 (3.4-5.0) gm/dl Globulin 3.8 (2.5-4.0) gm/dl Albumin/Globulin Ratio 0.9 (0.9-2) Lipase 215 (73-393) U/L Stl C. diff Tox B Gene (Neg) Blood Type A Negative Antibody Screen NEGATIVE 11/04/18 Range/Units 23:55 WBC (4.8-10.8) K/uL RBC (4.2-5.4) M/uL Hgb 14.3 (12.0-16.0) g/dL Hct 40.5 (37-47) % MCV (80-100) fL MCH (25-34) pg MCHC (32-36) g/dL RDW Std Deviation (36.4-46.3) fL RDW Coeff of Vik (11.5-14.5) % Plt Count (130-400) K/uL MPV (7.4-10.4) fL Immature Gran % (Auto) % Neut % (Auto) % Lymph % (Auto) % [place] % (Auto) % Eos % (Auto) % Baso % (Auto) % Immature Gran # (Auto) (0.00-0.02) K/uL Neut # (Auto) (1.4-6.5) K/uL Lymph # (Auto) (1.2-3.4) K/uL [place] # (Auto) (0.11-0.59) K/uL Eos # (Auto) (0-0.5) K/uL Baso # (Auto) (0-0.2) K/uL PT (9.0-12.0) Seconds INR (0.9-1.1) APTT (21.0-31.0) Seconds PTT Ratio Sodium (136-145) mmol/L Potassium (3.5-5.1) mmol/L Chloride (98-107) mmol/L Carbon Dioxide (21-32) mmol/L Anion Gap (3-11) BUN (7-18) mg/dl Creatinine (0.6-1.2) mg/dl Est Cr Clr Drug Dosing ml/min Est GFR ( Amer) Est GFR (Non-Af Amer) BUN/Creatinine Ratio (10-20) Glucose (70-99) mg/dl Calcium (8.5-10.1) mg/dl Magnesium (1.8-2.4) mg/dl Total Bilirubin (0.2-1) mg/dl AST (15-37) U/L ALT (12-78) U/L Alkaline Phosphatase (45-117) U/L Total Protein (6.4-8.2) gm/dl Albumin (3.4-5.0) gm/dl Globulin (2.5-4.0) gm/dl Albumin/Globulin Ratio (0.9-2) Lipase (73-393) U/L Stl C. diff Tox B Gene (Neg) Blood Type Antibody Screen Imaging Data Radiologist's Impression: Radiology results as stated below per my review and th e radiologist's interpretation: XR chest 1V portable CLINICAL HISTORY: 48 years-old Female presenting with back pain, history of recent pulmonary embolus. TECHNIQUE: Portable upright AP view of the chest was obtained. COMPARISON: 10/25/2018. FINDINGS: Cardiomediastinal silhouette normal. No focal opacity. No large effusion or pneumothorax. Osseous structures normal. Upper abdomen normal. IMPRESSION: 1. No acute cardiopulmonary disease. Electronically signed by: Ross Mcknight M.D. 11/04/2018 6:[address] abd pelvis IV con only CLINICAL HISTORY: 48 years-old Female presenting with generalized abdominal pain, bloating, flank pain. TECHNIQUE: Multidetector CT of the abdomen and pelvis was performed after the administration of intravenous contrast. IV contrast: 94 mL of Optiray 320. One or more dose lowering techniques were used consistent with the principles of ALARA (as low as reasonably achievable), including automatic exposure control, mA or kV adjustment to individual patient size, and/or use of iterative reconstruction. COMPARISON: 06/19/2017. CT DOSE (mGy.cm): The estimated cumulative dose is 391.68 mGy.cm. 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 Lung bases: Normal heart size. No pericardial or pleural effusion. No focal infiltrate or nodule at the lung bases. Liver: Normal morphology. Density suggestive of hepatic steatosis. No focal lesion. Patent hepatic vasculature. Biliary: No intrahepatic or extrahepatic biliary ductal dilatation. Gallbladder surgically absent. Pancreas: Normal. Spleen: Normal. Adrenal glands: Normal. Kidneys and ureters: Nonobstructing 4 mm upper pole left renal calculus. No additional renal calculus. Normal renal parenchyma. No hydronephrosis. Ureters nondistended. Bladder: Normal. Pelvic organs: Uterus and ovaries normal. Bowel: Wall thickening of the sigmoid colon extending proximally to the ascending colon. No significant pericolonic inflammatory change. No bowel obstruction. Small bowel is significantly decompressed. The appendix is normal. Peritoneal cavity: No free fluid or intraperitoneal gas. Lymph nodes: No enlarged lymph nodes in the abdomen or pelvis. Vasculature: Aorta and IVC patent and normal in caliber. Abdominal wall: Diastasis of the rectus abdominis. Nodular infiltration of the subcutaneous fat of the anterior abdominal wall on the right possibly medication administration. Musculoskeletal: Normal. IMPRESSION: 1. Extensive colonic wall thickening involving the sigmoid colon to the a scending colon. There is no significant pericolonic inflammatory change to suggest an advanced colitis. Most likely this represents a mild infectious or inflammatory colitis. Inflammatory bowel disease not excluded. 2. Nonobstructing 4 mm left renal calculus. 3. Hepatic steatosis. Electronically signed by: Ross Mcknight M.D. 11/04/2018 7:50 PM Blood Pressure Blood Pressure Findings: Normal blood pressure MDM Narrative The patient is a 48-year-old female who presented to the emergency department for an evaluation of abdominal pain and diarrhea. The patient was noticing rectal bleeding. The patient has a history of chronic ulcerative colitis but has not had a flareup in many years. She currently does take anticoagulation. I discussed patient's laboratory and radiographic studies with her. She was treated with IV fluids and IV pain medication in the emergency department. On subsequent reevaluation she was somewhat improved but given her rectal bleeding as well as her use of anticoagulation discussed her case with the on-call [facility] hospitalist. They have agreed to evaluate the patient in the emergency department for further management and disposition. Impression & Plan Bilateral lower abdominal pain, GI (gastrointestinal bleed), Colitis Discharge Plan Visit Data *Final* Discharge Date/Time: 11/04/18 23:11 Chief Complaint: Abdominal Pain Stated Complaint: ABD. PAIN, NAUSEA, VOMITING ED Provider: Richi Kaplan Discharge Problem: Bilateral lower abdominal pain, GI (gastrointestinal bleed), Colitis Patient Disposition: Admitted As Inpatient Discharge Instructions Interventions: ED Discharge Assessment Last Done: 11/04/18 23:11 The scribe's documentation has been prepared under my direction and personally reviewed by me in its entirety. I confirm that the note above accurately reflects all work, treatment, procedures, and medical decision making performed by me.
--- NOTE | 2018-11-04 18:22 | XRay Report ---
XR chest 1V portable CLINICAL HISTORY: 48 years-old Female presenting with back pain, history of recent pulmonary embolus. TECHNIQUE: Portable upright AP view of the chest was obtained. COMPARISON: 10/25/2018. FINDINGS: Cardiomediastinal silhouette normal. No focal opacity. No large effusion or pneumothorax. Osseous str uctures normal. Upper abdomen normal. IMPRESSION: 1. No acute cardiopulmonary disease. Electronically signed by: Ross Mcknight M.D. 11/04/2018 6:21 PM
[2018-11-04 19:12] LABS: Basophils # (auto) 0.02 K/uL (0-0.2); Basophils % (auto) 0.2 %; Eosinophils # (auto) 0.13 K/uL (0-0.5); Eosinophils % (auto) 1.3 %; Hematocrit (blood only) 43.9 % (37-47); Immature Granulocytes # (auto) 0.06 K/uL (0.00-0.02); Immature Granulocytes % (auto) 0.6 %; Lymphocytes # (auto) 1.49 K/uL (1.2-3.4); Mean Corpuscular Hgb Conc 36.4 g/dL (32-36); Mean Corpuscular Volume 94.2 fL (80-100); Mean Platelet Volume 9.8 fL (7.4-10.4); Monocytes # (auto) 0.77 K/uL (0.11-0.59); Monocytes % (auto) 7.8 %; Neutrophils # (auto) 7.44 K/uL (1.4-6.5); Neutrophils % (auto) 75.1 %; Platelet Count 212 K/uL (130-400); RDW Coefficient of Variation 12.7 % (11.5-14.5); RDW Standard Deviation 43.5 fL (36.4-46.3); Red Blood Count 4.66 M/uL (4.2-5.4); White Blood Count 9.91 K/uL (4.8-10.8)
[2018-11-04 19:23] LABS: INR 1.1 (0.9-1.1); Partial Thromboplastin Ratio 0.9; Partial Thromboplastin Time 25.6 Seconds (21.0-31.0); Prothrombin Time 10.9 Seconds (9.0-12.0)
[2018-11-04 19:34] LABS: Albumin Level 3.4 gm/dl (3.4-5.0); BUN Creatinine Ratio 14.7 (10-20); Calcium 8.7 mg/dl (8.5-10.1); Creatinine Clr Calc Pharmacy 67.9 ml/min; Est GFR (African American) 80.2; Est GFR (Non-African American) 69.2; Potassium 3.4 mmol/L (3.5-5.1)
[2018-11-04 19:36] LABS: Albumin Globulin Ratio 0.9 (0.9-2); Bilirubin,Total 0.4 mg/dl (0.2-1); Globulin 3.8 gm/dl (2.5-4.0); Total Protein 7.2 gm/dl (6.4-8.2)
[2018-11-04] MEDS ORDERED: IOVERSOL 100ml IV PRN (19:40)
--- NOTE | 2018-11-04 19:51 | CT Scan Report ---
CT abd pelvis IV con only CLINICAL HISTORY: 48 years-old Female presenting with generalized abdominal pain, bloating, flank yandy n. TECHNIQUE: Multidetector CT of the abdomen and pelvis was performed after the administration of intra venous contrast. IV contrast: 94 mL of Optiray 320. One or more dose lowering techniques were used co nsistent with the principles of ALARA (as low as reasonably achievable), including automatic exposure control, mA or kV adjustment to individual patient size, and/or use of iterative reconstruction. COMPARISON: 06/19/2017. CT DOSE (mGy.cm): The estimated cumulative dose is 391.68 mGy.cm. FINDINGS: Material Reclaimer topogram: Cholecystectomy clips noted. Lung bases: Normal heart size. No pericardial or pleural effusion. No focal infiltrate or nodule at t he lung bases. Liver: Normal morphology. Density suggestive of hepatic steatosis. No focal lesion. Patent hepatic va sculature. Biliary: No intrahepatic or extrahepatic biliary ductal dilatation. Gallbladder surgically absent. Pancreas: Normal. Spleen: Normal. Adrenal glands: Normal. Kidneys and ureters: Nonobstructing 4 mm upper pole left renal calculus. No additional renal calculus . Normal renal parenchyma. No hydronephrosis. Ureters nondistended. Bladder: Normal. Pelvic organs: Uterus and ovaries normal. Bowel: Wall thickening of the sigmoid colon extending proximally to the ascending colon. No significa nt pericolonic inflammatory change. No bowel obstruction. Small bowel is significantly decompressed. The appendix is normal. Peritoneal cavity: No free fluid or intraperitoneal gas. Lymph nodes: No enlarged lymph nodes in the abdomen or pelvis. Vasculature: Aorta and IVC patent and normal in caliber. Abdominal wall: Diastasis of the rectus abdominis. Nodular infiltration of the subcutaneous fat of th e anterior abdominal wall on the right possibly medication administration. Musculoskeletal: Normal. IMPRESSION: 1. Extensive colonic wall thickening involving the sigmoid colon to the ascending colon. There is no significant pericolonic inflammatory change to suggest an advanced colitis. Most likely this represe nts a mild infectious or inflammatory colitis. Inflammatory bowel disease not excluded. 2. Nonobstructing 4 mm left renal calculus. 3. Hepatic steatosis. Electronically signed by: Ross Mcknight M.D. 11/04/2018 7:50 PM
[2018-11-04] MEDS ORDERED: POTASSIUM CHLORIDE 20 MEQ TABCR PO STA (21:23)
[2018-11-04] MEDS ORDERED: AMPICILLIN/SULBACTAM SOD 3,000 MG in 0.9 % SODIUM CHLORIDE 100 ML IV STA (21:28)
[2018-11-04] MEDS ORDERED: FAMOTIDINE 20MG/5ML IV PUSH IV STA (22:00)
[2018-11-04] MEDS: HYDROmorphone INJ 0.5 MG/0.5 ML SYR IV PRN ×2 (22:07→23:59)
--- NOTE | 2018-11-04 22:10 | History & Physical Report ---
Date of Service November 04, 2018 History of Present Illness Chief Complaint: Abdominal pain, N/V/D, rectal bleeding per rectum Primary Care Provider: Rula Turpin MD 48-year-old female who presents the ED with abdominal pain, abdominal bloating, nausea, vomiting, diarrhea, bright red bleeding per rectum. Patient was recently admitted to [facility] 10/25 through 10/28 for right upper extremity DVT and pulmonary embolism. Patient has history of factor V Leiden and history of recurrent DVT/PE. During previous admission, patient's Coumadin was stopped and she was placed on Xarelto as an alternative therapy. Patient reports that today, she developed abdominal cramping with bloating. She reports abdominal pain is located in the right lower and left lower quadrants with radiation to the back. She subsequently developed diarrhea and bright red bleeding per rectum. She reports nausea and a few episodes of vomiting. She denies hematemesis or coffee-ground emesis. She reports feeling generally weak and some mild lightheadedness. No dizziness, syncopal event, diaphoresis. She denies chest pain and shortness of breath. No fevers or chills. She denies any urinary symptoms. In the ED, patient is hemodynamically stable and hemoglobin is found to be 16.0. CT ABD/pelvis shows colitis involving the sigmoid and ascending colon. She was given IVF, IV Zofran, IV Dilaudid. Allergies Allergy/AdvReac Type Severity Reaction Status Date / Time kiwi Allergy Severe ANAPHYLAXIS Verified 10/25/18 19:02 metronidazole Allergy Intermediate hives Verified 10/25/18 19:02 morphine Allergy Intermediate chest Verified 10/25/18 19:02 pain; trouble breathing prochlorperazine Allergy Unknown SEVERE Verified 10/25/18 19:02 ALLERGIC RXN tree nut Allergy Anaphylaxis Verified 10/25/18 19:02 Home Medications Home Medications Medication Instructions Recorded Confirmed Type albuterol sulfate 2 puff INHALATION QID PRN 06/02/18 11/04/18 History lorazepam 0.5 mg PO TID PRN 06/02/18 11/04/18 History sumatriptan succinate 50 mg PO UD PRN 06/02/18 11/04/18 History topiramate 200 mg PO BID 06/02/18 11/04/18 History ondansetron HCl [Zofran] 4 mg PO Q6 PRN #6 tab 09/29/18 11/04/18 Rx pantoprazole 40 mg PO DAILY 09/29/18 11/04/18 History ranitidine HCl 150 mg PO BID 09/29/18 11/04/18 History fluoxetine 40 mg PO DAILY 10/25/18 11/04/18 History meclizine 25 mg PO TID PRN 10/25/18 11/04/18 History hydrocodone-acetaminophen [[place]] 1 tab PO QID PRN #30 tab 10/28/18 11/04/18 Rx rivaroxaban [Xarelto] 10 mg PO BID 11/04/18 11/04/18 History Past Med/Surg History Medical History Chronic anticoagulation (Chronic) Pulmonary embolism (Chronic) Recurrent deep vein thrombosis (DVT) (Chronic) Seizure (Chronic) Depression (Chronic) Tobacco abuse (Chronic) Ulcerative colitis (Chronic) Factor V Leiden (Resolved) PTSD (post-traumatic stress disorder) (Chronic) Suicidal ideation (Resolved) Ureteral stone (Resolved) Surgical History History of cholecystectomy (Chronic) H/O tubal ligation (Chronic) Hx of tonsillectomy (Chronic) Family History Mother Dyslipidemia Social History Preferred Language: Cypriot Communication Ability: Effective Freight Clerk Required: No Beliefs That Will Affect Care: None marital status: Current Living Situation: Alone current occupational status: employed Feels Safe at Home: Yes Safety Concerns: Feels Safe At This Time Smoking Status: Light tobacco smoker Hx Alcohol Use: Yes Hx Substance Use: No Review of Systems Review of Systems: ROS per HPI, all other systems reviewed and negative Physical Exam Constitutional: WD/WN, vitals as above Eyes: PERRL, conjunctivae normal, anicteric sclerae ENMT: external ear and nose normal, oropharynx normal Respiratory: normal respiratory effort, lungs clear to auscultation Cardiovascular: Rate/Rhythm: regular rate and regular rhythm Vessels: normal peripheral pulses Extremities: + pedal edema (+1) Gastrointestinal (Abdomen): Inspection/Auscultation: + abdomen distended and normal bowel sounds Percussion/Palpation: + abdomen tender (Generalized); + abdomen not soft (Semi-firm) and no hepatosplenomegaly Musculoskeletal: no cyanosis or clubbing, extremities motor strength 5/5 Skin: no rashes, warm and dry Neurologic: PERRL, EOMI, accommodation nl, no face palsy, no dysarthria Psychiatric: A+Ox3, euthymic affect Results & Data Vital Signs (Past 12 Hours) Vital Signs Temp Pulse Pulse Resp BP BP Pulse Ox 11/04/18 20:07 78 20 119/65 94 11/04/18 19:00 82 19 130/77 11/04/18 17:38 36.9 C 97 H 18 139/92 97 Laboratory Results Laboratory Last Values WBC 9.91 K/uL (4.8-10.8) 11/04/18 17:46 RBC 4.66 M/uL (4.2-5.4) 11/04/18 17:46 Hgb 16.0 g/dL (12.0-16.0) 11/04/18 17:46 Hct 43.9 % (37-47) 11/04/18 17:46 MCV 94.2 fL (80-100) 11/04/18 17:46 MCH 34.3 pg (25-34) H 11/04/18 17:46 MCHC 36.4 g/dL (32-36) H 11/04/18 17:46 RDW Std Deviation 43.5 fL (36.4-46.3) 11/04/18 17:46 RDW Coeff of Vik 12.7 % (11.5-14.5) 11/04/18 17:46 Plt Count 212 K/uL (130-400) 11/04/18 17:46 MPV 9.8 fL (7.4-10.4) 11/04/18 17:46 Immature Gran % (Auto) 0.6 % 11/04/18 17:46 Neut % (Auto) 75.1 % 11/04/18 17:46 Lymph % (Auto) 15.0 % 11/04/18 17:46 [place] % (Auto) 7.8 % 11/04/18 17:46 Eos % (Auto) 1.3 % 11/04/18 17:46 Baso % (Auto) 0.2 % 11/04/18 17:46 Immature Gran # (Auto) 0.06 K/uL (0.00-0.02) H 11/04/18 17:46 Neut # (Auto) 7.44 K/uL (1.4-6.5) H 11/04/18 17:46 Lymph # (Auto) 1.49 K/uL (1.2-3.4) 11/04/18 17:46 [place] # (Auto) 0.77 K/uL (0.11-0.59) H 11/04/18 17:46 Eos # (Auto) 0.13 K/uL (0-0.5) 11/04/18 17:46 Baso # (Auto) 0.02 K/uL (0-0.2) 11/04/18 17:46 PT 10.9 Seconds (9.0-12.0) 11/04/18 18:57 INR 1.1 (0.9-1.1) 11/04/18 18:57 APTT 25.6 Seconds (21.0-31.0) 11/04/18 18:57 PTT Ratio 0.9 11/04/18 18:57 Sodium 141 mmol/L (136-145) 11/04/18 18:57 Potassium 3.4 mmol/L (3.5-5.1) L 11/04/18 18:57 Chloride 112 mmol/L (98-107) H 11/04/18 18:57 Carbon Dioxide 22 mmol/L (21-32) 11/04/18 18:57 Anion Gap 7.0 (3-11) 11/04/18 18:57 BUN 14 mg/dl (7-18) 11/04/18 18:57 Creatinine 0.98 mg/dl (0.6-1.2) 11/04/18 18:57 Est Cr Clr Drug Dosing 67.9 ml/min 11/04/18 18:57 Est GFR ( Amer) 80.2 11/04/18 18:57 Est GFR (Non-Af Amer) 69.2 11/04/18 18:57 BUN/Creatinine Ratio 14.7 (10-20) 11/04/18 18:57 Glucose 118 mg/dl (70-99) H 11/04/18 18:57 Calcium 8.7 mg/dl (8.5-10.1) 11/04/18 18:57 Magnesium 2.1 mg/dl (1.8-2.4) 11/04/18 18:57 Total Bilirubin 0.4 mg/dl (0.2-1) 11/04/18 18:57 AST 14 U/L (15-37) L 11/04/18 18:57 ALT 34 U/L (12-78) 11/04/18 18:57 Alkaline Phosphatase 87 U/L (45-117) 11/04/18 18:57 Total Protein 7.2 gm/dl (6.4-8.2) 11/04/18 18:57 Albumin 3.4 gm/dl (3.4-5.0) 11/04/18 18:57 Globulin 3.8 gm/dl (2.5-4.0) 11/04/18 18:57 Albumin/Globulin Ratio 0.9 (0.9-2) 11/04/18 18:57 Lipase 215 U/L (73-393) 11/04/18 18:57 Stl C. diff Tox B Gene Negative Cdiff Gene (Neg) 11/04/18 18:00 Diagnostic Findings CXR IMPRESSION: 1. No acute cardiopulmonary disease. CT ABD/PELVIS IMPRESSION: 1. Extensive colonic wall thickening involving the sigmoid colon to the ascending colon. There is no significant pericolonic inflammatory change to suggest an advanced colitis. Most likely this represents a mild infectious or inflammatory colitis. Inflammatory bowel disease not excluded. 2. Nonobstructing 4 mm left renal calculus. 3. Hepatic steatosis. Code Status & VTE Plan VTE Prophylaxis Plan VTE Prophylaxis will be ordered: Yes Supervising Physician Co-Signing Physician Notes IM ATTENDING : Patient seen and examined. History obtained from patient and records. Preceding documentation by SERGEI Villar reviewed. FINAL ASSESSMENT AND PLAN as follows : LGIB Colitis on CT "hx ulcerative colitis" as per outpatient records (no colonoscopy reports found on outpatient file) hypercoagulable state (factor V Leiden deficiency, recurrent venous thrombosis) on Xarelto currently hemodynamically stable Hypokalemia secondary to GI illness Mood disorder, at baseline Ongoing tobacco abuse GMF Unasyn for hemorrhagic colitis GI consult RE L GIB (patient known to [facility]) Appropriate to hold Xarelto for now given L GIB Replace potassium Nicotine patch as needed DVT prophylaxis. SCDs while Xarelto on hold Full code
[2018-11-04] MEDS ORDERED: KETOROLAC TROMETHAMINE 15 MG/ML VIAL IV ONE (22:28)
[2018-11-04] MEDS ORDERED: ACETAMINOPHEN 325 MG TAB PO PRN (22:31)
[2018-11-04] MEDS ORDERED: LORazepam 0.5 MG/1 ML VIAL IV PRN (22:37)
[2018-11-05 00:23] LABS: Hematocrit (blood only) 40.5 % (37-47); Hemoglobin 14.3 g/dL (12.0-16.0)
[2018-11-05] MEDS: HEPARIN 100 UNIT/ML 5ML FLUSH IV PRN ×4 (00:38→14:12)
[2018-11-05] MEDS: AMPICILLIN/SULBACTAM SOD 3,000 MG in 0.9 % SODIUM CHLORIDE 100 ML IV SCH ×4 (04:08→22:07)
[2018-11-05] MEDS: HYDROCODONE/ACETAMOPHEN 5/325MG TAB PO PRN ×4 (05:58→23:32)
[2018-11-05 06:06] LABS: Pregnancy Test, Urine Negative (Negative)
[2018-11-05 06:29] LABS: Appearance Urine Clear (Clear); Bacteria Urine Automated Negative (Negative); Bilirubin Urine Negative (Negative); Blood Urine 2+ (Negative); Color Urine Yellow; Epithelial Cell Urine Auto >30 /lpf (0-5); Glucose Urine UA Negative (Negative); Ketones Urine Negative (Negative); Leukocyte Esterase Urine Negative (Negative); Nitrite Urine Negative (Negative); Protein Urine Negative (Negative); Specific Gravity Urine 1.023 (1.000-1.030); Urobilinogen Urine Negative (Negative); pH Urine 5.5 (4.5-7.5)
[2018-11-05 07:12] LABS: Basophils # (auto) 0.02 K/uL (0-0.2); Basophils % (auto) 0.4 %; Eosinophils # (auto) 0.24 K/uL (0-0.5); Eosinophils % (auto) 4.3 %; Hematocrit (blood only) 36.8 % (37-47); Hemoglobin 13.2 g/dL (12.0-16.0); Immature Granulocytes # (auto) 0.03 K/uL (0.00-0.02); Immature Granulocytes % (auto) 0.5 %; Lymphocytes # (auto) 1.75 K/uL (1.2-3.4); Lymphocytes % (auto) 31.5 %; Mean Corpuscular Hgb Conc 35.9 g/dL (32-36); Mean Corpuscular Volume 94.8 fL (80-100); Mean Platelet Volume 9.6 fL (7.4-10.4); Monocytes # (auto) 0.58 K/uL (0.11-0.59); Monocytes % (auto) 10.4 %; Neutrophils # (auto) 2.94 K/uL (1.4-6.5); Neutrophils % (auto) 52.9 %; Platelet Count 188 K/uL (130-400); RDW Coefficient of Variation 12.9 % (11.5-14.5); RDW Standard Deviation 44.7 fL (36.4-46.3); Red Blood Count 3.88 M/uL (4.2-5.4); White Blood Count 5.56 K/uL (4.8-10.8)
[2018-11-05 07:22] LABS: Partial Thromboplastin Ratio 0.8; Partial Thromboplastin Time 22.1 Seconds (21.0-31.0)
[2018-11-05 07:41] LABS: BUN Creatinine Ratio 14.4 (10-20); Calcium 7.8 mg/dl (8.5-10.1); Creatinine Clr Calc Pharmacy 77.4 ml/min; Est GFR (African American) 93.9; Potassium 3.6 mmol/L (3.5-5.1)
[2018-11-05] MEDS: FLUOXETINE HCL 20 MG CAP PO SCH (08:03)
[2018-11-05] MEDS: TOPIRAMATE 100 MG TAB PO SCH ×2 (08:03→20:31)
[2018-11-05] MEDS: PANTOprazole 40 MG TAB PO SCH (08:03)
[2018-11-05] MEDS ORDERED: AMPICILLIN/SULBACTAM CONSULT ACTIVE PRN (09:00)
[2018-11-05] MEDS: HYDROmorphone INJ 0.5 MG/0.5 ML SYR IV PRN ×3 (09:10→20:41)
[2018-11-05 11:00] LABS: Hematocrit (blood only) 37.3 % (37-47); Hemoglobin 13.3 g/dL (12.0-16.0)
--- NOTE | 2018-11-05 11:28 | XRay Report ---
KUB CLINICAL HISTORY: Abdominal distention. COMPARISON STUDY: CT of the abdomen and pelvis November 04, 2018. FINDINGS: The bowel gas pattern is normal. There are cholecystectomy clips. A 3 mm calculus within th e upper pole of the left kidney is noted. Visualized skeletal structures are unremarkable. IMPRESSION: 1. No evidence for a bowel obstruction. 2. 3 mm left renal calculus. No ureteral calculi. Electronically signed by: Louis Roberts M.D. 11/05/2018 11:27 AM
--- NOTE | 2018-11-05 11:59 | Gastrointestinal Consultation ---
Date of Consultation November 05, 2018 Assessment & Plan (1) Factor V Leiden: (2) Ulcerative colitis: Pt is a 48 y/o female w hx of Factor V Leiden w DVT/PE on Xarelto, reported UC not on maintenance meds who presented w n/v, abd pain, loose tools and BRBPR. H/H normal. CT abd/pelvis w diffuse non specific colitis. Cdiff negative, stool cx pending. DDx: infectious colitis vs UC flare. - Abd distended but no signs of peritoneal fluid or colonic distension on CT; will obtain KUB today - F/U stool cx, if negative, will start IV steroids for suspected UC flare - Check ESR, CRP - Bentyl 10mg TID prn abd cramping - CL diet - Will need colonoscopy while inpt for disease surveillance , but needs to be off Xarelto x 3 days Supervising Physician Co-Signing Physician Notes Attending attestation I have seen, examined this patient, and agree with the findings and above by our mid-level provider SERGEI Latif. -Improved throughout the day, unsure if truly has underlying ulcerative colitis given asymptomatic nature until this acute episode. Certainly this could be a viral and/or bacterial gastroenteritis. We will continue to hold Xarelto for 1 additional day pending patient's improvement in clinical status tomorrow we will discuss colonoscopy for . -Call with questions -We will continue to follow History of Present Illness Reason for Consultation: Lower GI bleed Requesting Physician: Dr. Charlette Barrera Attending Physician: Dr. Brando Chao History of Present Illness Pt is a 48 y/o female w PMHx of Factor V Leiden, hx of DVT, PE on Xarelto (previously on Coumadin), reported hx of ulcerative colitis who presented to ED w c/o diffuse abd pain/cramping, bloating, n/v, loose stools and BRBPR. She denies any hematemesis, coffee ground emesis. Said symptoms fo abd cramping and bloating started about 1 week ago, then progressively worse and started to have loose stools a couple of days ago. BRBPR yesterday. Denies fever, chills, CP, SOB. Labs on eval showed no leukocytosis, H/H normal. Normal renal and liver functions. Cdiff negative, stool cx pending. CT abd/pelvis showed diffuse colonic wall thickening suggestive of advanced non specific colitis. She denies any recent antibx, travels or sick contact. Pt reports hx of ulcerative colitis, previously followed by Dr. Harrington. She was seen by [facility] in 2017 for rectal bleeding and we tried to make her f/u appt but she never returns call. She said was on Hyoscyamine and Ativan for her UC. But denies use of 5-ASA, steroids, TNF. Usually BM pattern every day to every other day, stools solid, no rectal bleeding. Allergies Allergy/AdvReac Type Severity Reaction Status Date / Time kiwi Allergy Severe ANAPHYLAXIS Verified 10/25/18 19:02 metronidazole Allergy Intermediate hives Verified 10/25/18 19:02 morphine Allergy Intermediate chest Verified 10/25/18 19:02 pain; trouble breathing prochlorperazine Allergy Unknown SEVERE Verified 10/25/18 19:02 ALLERGIC RXN tree nut Allergy Anaphylaxis Verified 10/25/18 19:02 Home Medications Home Medications Medication Instructions Recorded Confirmed Type albuterol sulfate 2 puff INHALATION QID PRN 06/02/18 11/04/18 History lorazepam 0.5 mg PO TID PRN 06/02/18 11/04/18 History sumatriptan succinate 50 mg PO UD PRN 06/02/18 11/04/18 History topiramate 200 mg PO BID 06/02/18 11/04/18 History ondansetron HCl [Zofran] 4 mg PO Q6 PRN #6 tab 09/29/18 11/04/18 Rx pantoprazole 40 mg PO DAILY 09/29/18 11/04/18 History ranitidine HCl 150 mg PO BID 09/29/18 11/04/18 History fluoxetine 40 mg PO DAILY 10/25/18 11/04/18 History meclizine 25 mg PO TID PRN 10/25/18 11/04/18 History hydrocodone-acetaminophen [[place]] 1 tab PO QID PRN #30 tab 10/28/18 11/04/18 Rx rivaroxaban [Xarelto] 10 mg PO BID 11/04/18 11/04/18 History Patient History Medical History Chronic anticoagulation (Chronic) Pulmonary embolism (Chronic) Recurrent deep vein thrombosis (DVT) (Chronic) Seizure (Chronic) Depression (Chronic) Tobacco abuse (Chronic) Ulcerative colitis (Chronic) Factor V Leiden (Resolved) PTSD (post-traumatic stress disorder) (Chronic) Suicidal ideation (Resolved) Ureteral stone (Resolved) Surgical History History of cholecystectomy (Chronic) H/O tubal ligation (Chronic) Hx of tonsillectomy (Chronic) Family History Mother Dyslipidemia Social History Preferred Language: Romansh Communication Ability: Effective Compressor Service Technician Required: No Beliefs That Will Affect Care: None marital status: Current Living Situation: Alone current occupational status: employed Feels Safe at Home: Yes Safety Concerns: Feels Safe At This Time Smoking Status: Light tobacco smoker Hx Alcohol Use: Yes Hx Substance Use: No Review of Systems Review of Systems: All systems reviewed & are unremarkable except as noted in HPI & below Physical Exam Constitutional: WD/WN, vitals as above well groomed, cooperative and comfortable Eyes: PERRL, conjunctivae normal, anicteric sclerae ENMT: external ear and nose normal, oropharynx normal Respiratory: normal respiratory effort, lungs clear to auscultation Cardiovascular: RRR, no murmur, no edema Gastrointestinal (Abdomen): Inspection/Auscultation: + abdomen distended Percussion/Palpation: + abdomen tender (diffuse ) and abdomen soft Skin: no rashes, warm and dry no jaundice Neurologic: Motor/Sensory: no asterixis Psychiatric: A+Ox3, euthymic affect Lymphatic: no lymphedema Results & Data Vital Signs (Past 12 Hours) Vital Signs Temp Pulse Resp BP Pulse Ox 11/05/18 07:27 36.7 C 69 18 87/56 L 97 11/04/18 23:58 36.5 C 72 20 107/74 96 Laboratory Results - last 72 hr 11/04/18 11/04/18 11/04/18 17:46 18:00 18:57 WBC 9.91 RBC 4.66 Hgb 16.0 Hct 43.9 MCV 94.2 MCH 34.3 H MCHC 36.4 H RDW Std Deviation 43.5 RDW Coeff of Vik 12.7 Plt Count 212 MPV 9.8 Immature Gran % (Auto) 0.6 Neut % (Auto) 75.1 Lymph % (Auto) 15.0 [place] % (Auto) 7.8 Eos % (Auto) 1.3 Baso % (Auto) 0.2 Immature Gran # (Auto) 0.06 H Neut # (Auto) 7.44 H Lymph # (Auto) 1.49 [place] # (Auto) 0.77 H Eos # (Auto) 0.13 Baso # (Auto) 0.02 ESR PT 10.9 INR 1.1 APTT 25.6 PTT Ratio 0.9 Sodium Potassium Chloride Carbon Dioxide Anion Gap BUN Creatinine Est Cr Clr Drug Dosing Est GFR ( Amer) Est GFR (Non-Af Amer) BUN/Creatinine Ratio Glucose Calcium Magnesium Total Bilirubin AST ALT Alkaline Phosphatase C-Reactive Protein Total Protein Albumin Globulin Albumin/Globulin Ratio Lipase Urine Color Urine Appearance Urine pH Ur Specific [place] Urine Protein Urine Glucose (UA) Urine Ketones Urine Blood Urine Nitrite Urine Bilirubin Urine Urobilinogen Ur Leukocyte Esterase Urine WBC (Auto) Urine RBC (Auto) U Hyaline Cast (Auto) U Epithel Cells (Auto) Urine Bacteria (Auto) Urine Test Stl C. diff Tox B Gene Negative Cdiff Gene Blood Type Antibody Screen 11/04/18 11/04/18 11/04/18 18:57 18:57 23:55 WBC RBC Hgb Hct MCV MCH MCHC RDW Std Deviation RDW Coeff of Vik Plt Count MPV Immature Gran % (Auto) Neut % (Auto) Lymph % (Auto) [place] % (Auto) Eos % (Auto) Baso % (Auto) Immature Gran # (Auto) Neut # (Auto) Lymph # (Auto) [place] # (Auto) Eos # (Auto) Baso # (Auto) ESR PT INR APTT PTT Ratio Sodium 141 Potassium 3.4 L Chloride 112 H Carbon Dioxide 22 Anion Gap 7.0 BUN 14 Creatinine 0.98 Est Cr Clr Drug Dosing 67.9 Est GFR ( Amer) 80.2 Est GFR (Non-Af Amer) 69.2 BUN/Creatinine Ratio 14.7 Glucose 118 H Calcium 8.7 Magnesium 2.1 Total Bilirubin 0.4 AST 14 L ALT 34 Alkaline Phosphatase 87 C-Reactive Protein Total Protein 7.2 Albumin 3.4 Globulin 3.8 Albumin/Globulin Ratio 0.9 Lipase 215 Urine Color Urine Appearance Urine pH Ur Specific [place] Urine Protein Urine Glucose (UA) Urine Ketones Urine Blood Urine Nitrite Urine Bilirubin Urine Urobilinogen Ur Leukocyte Esterase Urine WBC (Auto) Urine RBC (Auto) U Hyaline Cast (Auto) U Epithel Cells (Auto) Urine Bacteria (Auto) Urine Test Stl C. diff Tox B Gene Blood Type A Negative Antibody Screen NEGATIVE 11/04/18 11/05/18 11/05/18 23:55 05:20 05:20 WBC RBC Hgb 14.3 Hct 40.5 MCV MCH MCHC RDW Std Deviation RDW Coeff of Vik Plt Count MPV Immature Gran % (Auto) Neut % (Auto) Lymph % (Auto) [place] % (Auto) Eos % (Auto) Baso % (Auto) Immature Gran # (Auto) Neut # (Auto) Lymph # (Auto) [place] # (Auto) Eos # (Auto) Baso # (Auto) ESR PT INR APTT PTT Ratio Sodium Potassium Chloride Carbon Dioxide Anion Gap BUN Creatinine Est Cr Clr Drug Dosing Est GFR ( Amer) Est GFR (Non-Af Amer) BUN/Creatinine Ratio Glucose Calcium Magnesium Total Bilirubin AST ALT Alkaline Phosphatase C-Reactive Protein Total Protein Albumin Globulin Albumin/Globulin Ratio Lipase Urine Color Yellow Urine Appearance Clear Urine pH 5.5 Ur Specific [place] 1.023 Urine Protein Negative Urine Glucose (UA) Negative Urine Ketones Negative Urine Blood 2+ H Urine Nitrite Negative Urine Bilirubin Negative Urine Urobilinogen Negative Ur Leukocyte Esterase Negative Urine WBC (Auto) 1-5 Urine RBC (Auto) 10-30 H U Hyaline Cast (Auto) 1-5 U Epithel Cells (Auto) >30 H Urine Bacteria (Auto) Negative Urine Test Negative Stl C. diff Tox B Gene Blood Type Antibody Screen 11/05/18 11/05/18 11/05/18 06:50 06:50 06:50 WBC 5.56 RBC 3.88 L Hgb 13.2 Hct 36.8 L MCV 94.8 MCH 34.0 MCHC 35.9 RDW Std Deviation 44.7 RDW Coeff of Vik 12.9 Plt Count 188 MPV 9.6 Immature Gran % (Auto) 0.5 Neut % (Auto) 52.9 Lymph % (Auto) 31.5 [place] % (Auto) 10.4 Eos % (Auto) 4.3 Baso % (Auto) 0.4 Immature Gran # (Auto) 0.03 H Neut # (Auto) 2.94 Lymph # (Auto) 1.75 [place] # (Auto) 0.58 Eos # (Auto) 0.24 Baso # (Auto) 0.02 ESR PT INR APTT 22.1 PTT Ratio 0.8 Sodium 143 Potassium 3.6 Chloride 115 H Carbon Dioxide 20 L Anion Gap 8.0 BUN 12 Creatinine 0.86 Est Cr Clr Drug Dosing 77.4 Est GFR ( Amer) 93.9 Est GFR (Non-Af Amer) 81.0 BUN/Creatinine Ratio 14.4 Glucose 89 Calcium 7.8 L Magnesium Total Bilirubin AST ALT Alkaline Phosphatase C-Reactive Protein Total Protein Albumin Globulin Albumin/Globulin Ratio Lipase Urine Color Urine Appearance Urine pH Ur Specific [place] Urine Protein Urine Glucose (UA) Urine Ketones Urine Blood Urine Nitrite Urine Bilirubin Urine Urobilinogen Ur Leukocyte Esterase Urine WBC (Auto) Urine RBC (Auto) U Hyaline Cast (Auto) U Epithel Cells (Auto) Urine Bacteria (Auto) Urine Test Stl C. diff Tox B Gene Blood Type Antibody Screen 11/05/18 11/05/18 11/05/18 10:45 10:45 10:45 WBC RBC Hgb 13.3 Hct 37.3 MCV MCH MCHC RDW Std Deviation RDW Coeff of Vik Plt Count MPV Immature Gran % (Auto) Neut % (Auto) Lymph % (Auto) [place] % (Auto) Eos % (Auto) Baso % (Auto) Immature Gran # (Auto) Neut # (Auto) Lymph # (Auto) [place] # (Auto) Eos # (Auto) Baso # (Auto) ESR 2 PT INR APTT PTT Ratio Sodium Potassium Chloride Carbon Dioxide Anion Gap BUN Creatinine Est Cr Clr Drug Dosing Est GFR ( Amer) Est GFR (Non-Af Amer) BUN/Creatinine Ratio Glucose Calcium Magnesium Total Bilirubin AST ALT Alkaline Phosphatase C-Reactive Protein 0.47 H Total Protein Albumin Globulin Albumin/Globulin Ratio Lipase Urine Color Urine Appearance Urine pH Ur Specific [place] Urine Protein Urine Glucose (UA) Urine Ketones Urine Blood Urine Nitrite Urine Bilirubin Urine Urobilinogen Ur Leukocyte Esterase Urine WBC (Auto) Urine RBC (Auto) U Hyaline Cast (Auto) U Epithel Cells (Auto) Urine Bacteria (Auto) Urine Test Stl C. diff Tox B Gene Blood Type Antibody Screen
[2018-11-05] MEDS: DICYCLOMINE HCL 10 MG CAP PO SCH ×2 (13:43→20:31)
[2018-11-05] MEDS: METOCLOPRAMIDE HCL INJ 5 MG/ML 2 ML VIAL IV PRN (14:12)
--- NOTE | 2018-11-05 15:35 | Hospitalist Progress Note ---
Date of Service November 05, 2018 Assessment & Plan (1) Abdominal pain: Abdominal pain improved: Appreciate input from GI Never had a colonoscopy in the past, per GI unsure if truly has underlying ulcerative colitis given patient is asymptomatic for most part of the year until this acute episode Possible viral gastroenteritis? Stool stool cultures/C. difficile -negative Patient's anticoagulation Xarelto kept on hold, will need to be on hold for 1 more day, for colonoscopy during this admission (2) Colitis: CT abdomen pelvis: 1. Extensive colonic wall thickening involving the sigmoid colon to the ascending colon. There is no significant pericolonic inflammatory change to suggest an advanced colitis: Most likely represents a mild infectious or inflammatory colitis. Inflammatory bowel disease not excluded Continue supportive care with IV fluids, empiric antibiotic with IV Unasyn, GI following (3) Colitis with rectal bleeding: CT abdomen pelvis as outlined above No further episodes of GI bleed, H&H remained stable Plan for colonoscopy during this hospital admission (4) Ulcerative colitis: No definitive diagnosis, Plan for colonoscopy this admission with biopsy to assess for inflammatory bowel disease Anticoagulation Xarelto needs to be on hold for 3 days prior for the procedure (5) Factor V Leiden: On Xarelto, kept on hold for possible colonoscopy (6) Chronic anticoagulation: (7) Pulmonary embolism: Xarelto kept on hold, concern for GI bleed, blood in stool, will need colonoscopy (8) Recurrent deep vein thrombosis (DVT): Chronic anticoagulation on hold for bleeding risk, GI bleed, blood in stool, will need colonoscopy and biopsy for definitive diagnosis of inflammatory bowel disease CODE STATUS: Full code Disposition: Expected to be discharged home when medically stable Subjective Concern about abdominal distention, no nausea vomiting, did not had any bowel movement since admission x-ray of KUB Within normal limits, Patient evaluated by GI team, Diet advanced, Xarelto kept on hold, plan for colonoscopy during this admission Physical Exam Constitutional: WD/WN, vitals as above no acute distress Eyes: PERRL, conjunctivae normal, anicteric sclerae ENMT: external ear and nose normal, oropharynx normal Neck: trachea midline, no thyromegaly Respiratory: normal respiratory effort, lungs clear to auscultation Cardiovascular: RRR, no murmur, no edema Gastrointestinal (Abdomen): Inspection/Auscultation: + abdomen distended and normal bowel sounds Percussion/Palpation: + abdomen tender (Mild tenderness on lower abdomen) and abdomen soft Musculoskeletal: no cyanosis or clubbing, extremities motor strength 5/5 Skin: no rashes, warm and dry Neurologic: PERRL, EOMI, accommodation nl, no face palsy, no dysarthria Psychiatric: A+Ox3, euthymic affect Results & Data Vital Signs (Past 12 Hours) Vital Signs Temp Pulse Resp BP Pulse Ox 11/05/18 07:27 36.7 C 69 18 87/56 L 97 (1) Abdominal pain Abdominal location: lower abdomen, unspecified Qualified Code(s): R10.30 - Lower abdominal pain, unspecified
[2018-11-05] MEDS: DOCUSATE SODIUM 100 MG CAP PO SCH (18:37)
[2018-11-05 19:12] LABS: Hematocrit (blood only) 39.4 % (37-47); Hemoglobin 14.1 g/dL (12.0-16.0)
[2018-11-06] MEDS: HYDROmorphone INJ 0.5 MG/0.5 ML SYR IV PRN ×5 (00:36→21:33)
[2018-11-06] MEDS: HEPARIN 100 UNIT/ML 5ML FLUSH IV PRN ×5 (00:36→12:46)
[2018-11-06] MEDS: AMPICILLIN/SULBACTAM SOD 3,000 MG in 0.9 % SODIUM CHLORIDE 100 ML IV SCH ×2 (03:38→09:53)
[2018-11-06] MEDS: DOCUSATE SODIUM 100 MG CAP PO SCH (08:06)
[2018-11-06] MEDS: FLUOXETINE HCL 20 MG CAP PO SCH (08:06)
[2018-11-06] MEDS: TOPIRAMATE 100 MG TAB PO SCH ×2 (08:06→21:40)
[2018-11-06] MEDS: PANTOprazole 40 MG TAB PO SCH (08:06)
[2018-11-06] MEDS: DICYCLOMINE HCL 10 MG CAP PO SCH ×3 (08:06→21:39)
[2018-11-06] MEDS: METOCLOPRAMIDE HCL INJ 5 MG/ML 2 ML VIAL IV PRN ×3 (08:39→21:34)
--- NOTE | 2018-11-06 10:56 | Gastroenterology Progress Note ---
Date of Service November 06, 2018 Assessment & Plan (1) Factor V Leiden: (2) Ulcerative colitis: Pt is a 48 y/o female w hx of Factor V Leiden w DVT/PE on Xarelto, reported UC not on maintenance meds who presented w n/v, abd pain, loose tools and BRBPR. H/H normal. CT abd/pelvis w diffuse non specific colitis. Cdiff negative, stool cx pending. DDx: infectious colitis vs UC flare. Persistent abd bloating w/o radiographic evidence of pertioneal fluid, bowel distension; abd cramping. No more BMs or rectal bleeding since admitted. Likely bacterial vs viral gastroenteritis. - No furhter indication for antibiotics from GI standpoint. Ok to DC. - Bentyl 10mg TID prn abd cramping - Hold Xarelto - CL diet; NPO after midnight - Plan for colonoscopy by Dr. Chao on 11/07/18 for UC disease surveillance ; bowel prep ordered. Supervising Physician Co-Signing Physician Notes Attending attestation I have seen, examined this patient, and agree with the findings and above by our mid-level provider SERGEI Latif. - Mild improvement - Will plan on colonoscopy tomorrow. Subjective Pt c/o persistent abd bloating and cramping. Denies any more BMs or rectal bleeding since admitted. Stool cx and Cdiff negative. H/H stable. Review of Systems Review of Systems: All systems reviewed & are unremarkable except as noted in HPI & below Physical Exam Constitutional: WD/WN, vitals as above well groomed, cooperative and comfortable Eyes: PERRL, conjunctivae normal, anicteric sclerae ENMT: external ear and nose normal, oropharynx normal Respiratory: normal respiratory effort, lungs clear to auscultation Cardiovascular: RRR, no murmur, no edema Gastrointestinal (Abdomen): Inspection/Auscultation: + abdomen distended and normal bowel sounds Percussion/Palpation: + abdomen tender (diffuse ) and abdomen soft Skin: no rashes, warm and dry no jaundice Neurologic: Motor/Sensory: no asterixis Psychiatric: A+Ox3, euthymic affect Lymphatic: no lymphedema Results & Data Vital Signs (Past 12 Hours) Vital Signs Temp Pulse Resp BP Pulse Ox 11/06/18 07:11 36.8 C 69 18 121/80 97 11/05/18 23:06 36.6 C 69 106/71 96 Laboratory Results - last 72 hr 11/04/18 11/04/18 11/04/18 17:46 18:00 18:57 WBC 9.91 RBC 4.66 Hgb 16.0 Hct 43.9 MCV 94.2 MCH 34.3 H MCHC 36.4 H RDW Std Deviation 43.5 RDW Coeff of Vik 12.7 Plt Count 212 MPV 9.8 Immature Gran % (Auto) 0.6 Neut % (Auto) 75.1 Lymph % (Auto) 15.0 [place] % (Auto) 7.8 Eos % (Auto) 1.3 Baso % (Auto) 0.2 Immature Gran # (Auto) 0.06 H Neut # (Auto) 7.44 H Lymph # (Auto) 1.49 [place] # (Auto) 0.77 H Eos # (Auto) 0.13 Baso # (Auto) 0.02 ESR PT 10.9 INR 1.1 APTT 25.6 PTT Ratio 0.9 Sodium Potassium Chloride Carbon Dioxide Anion Gap BUN Creatinine Est Cr Clr Drug Dosing Est GFR ( Amer) Est GFR (Non-Af Amer) BUN/Creatinine Ratio Glucose Calcium Magnesium Total Bilirubin AST ALT Alkaline Phosphatase C-Reactive Protein Total Protein Albumin Globulin Albumin/Globulin Ratio Lipase Urine Color Urine Appearance Urine pH Ur Specific [place] Urine Protein Urine Glucose (UA) Urine Ketones Urine Blood Urine Nitrite Urine Bilirubin Urine Urobilinogen Ur Leukocyte Esterase Urine WBC (Auto) Urine RBC (Auto) U Hyaline Cast (Auto) U Epithel Cells (Auto) Urine Bacteria (Auto) Urine Test Stl C. diff Tox B Gene Negative Cdiff Gene Blood Type Antibody Screen 11/04/18 11/04/18 11/04/18 18:57 18:57 23:55 WBC RBC Hgb Hct MCV MCH MCHC RDW Std Deviation RDW Coeff of Vik Plt Count MPV Immature Gran % (Auto) Neut % (Auto) Lymph % (Auto) [place] % (Auto) Eos % (Auto) Baso % (Auto) Immature Gran # (Auto) Neut # (Auto) Lymph # (Auto) [place] # (Auto) Eos # (Auto) Baso # (Auto) ESR PT INR APTT PTT Ratio Sodium 141 Potassium 3.4 L Chloride 112 H Carbon Dioxide 22 Anion Gap 7.0 BUN 14 Creatinine 0.98 Est Cr Clr Drug Dosing 67.9 Est GFR ( Amer) 80.2 Est GFR (Non-Af Amer) 69.2 BUN/Creatinine Ratio 14.7 Glucose 118 H Calcium 8.7 Magnesium 2.1 Total Bilirubin 0.4 AST 14 L ALT 34 Alkaline Phosphatase 87 C-Reactive Protein Total Protein 7.2 Albumin 3.4 Globulin 3.8 Albumin/Globulin Ratio 0.9 Lipase 215 Urine Color Urine Appearance Urine pH Ur Specific [place] Urine Protein Urine Glucose (UA) Urine Ketones Urine Blood Urine Nitrite Urine Bilirubin Urine Urobilinogen Ur Leukocyte Esterase Urine WBC (Auto) Urine RBC (Auto) U Hyaline Cast (Auto) U Epithel Cells (Auto) Urine Bacteria (Auto) Urine Test Stl C. diff Tox B Gene Blood Type A Negative Antibody Screen NEGATIVE 11/04/18 11/05/18 11/05/18 23:55 05:20 05:20 WBC RBC Hgb 14.3 Hct 40.5 MCV MCH MCHC RDW Std Deviation RDW Coeff of Vik Plt Count MPV Immature Gran % (Auto) Neut % (Auto) Lymph % (Auto) [place] % (Auto) Eos % (Auto) Baso % (Auto) Immature Gran # (Auto) Neut # (Auto) Lymph # (Auto) [place] # (Auto) Eos # (Auto) Baso # (Auto) ESR PT INR APTT PTT Ratio Sodium Potassium Chloride Carbon Dioxide Anion Gap BUN Creatinine Est Cr Clr Drug Dosing Est GFR ( Amer) Est GFR (Non-Af Amer) BUN/Creatinine Ratio Glucose Calcium Magnesium Total Bilirubin AST ALT Alkaline Phosphatase C-Reactive Protein Total Protein Albumin Globulin Albumin/Globulin Ratio Lipase Urine Color Yellow Urine Appearance Clear Urine pH 5.5 Ur Specific [place] 1.023 Urine Protein Negative Urine Glucose (UA) Negative Urine Ketones Negative Urine Blood 2+ H Urine Nitrite Negative Urine Bilirubin Negative Urine Urobilinogen Negative Ur Leukocyte Esterase Negative Urine WBC (Auto) 1-5 Urine RBC (Auto) 10-30 H U Hyaline Cast (Auto) 1-5 U Epithel Cells (Auto) >30 H Urine Bacteria (Auto) Negative Urine Test Negative Stl C. diff Tox B Gene Blood Type Antibody Screen 11/05/18 11/05/18 11/05/18 06:50 06:50 06:50 WBC 5.56 RBC 3.88 L Hgb 13.2 Hct 36.8 L MCV 94.8 MCH 34.0 MCHC 35.9 RDW Std Deviation 44.7 RDW Coeff of Vik 12.9 Plt Count 188 MPV 9.6 Immature Gran % (Auto) 0.5 Neut % (Auto) 52.9 Lymph % (Auto) 31.5 [place] % (Auto) 10.4 Eos % (Auto) 4.3 Baso % (Auto) 0.4 Immature Gran # (Auto) 0.03 H Neut # (Auto) 2.94 Lymph # (Auto) 1.75 [place] # (Auto) 0.58 Eos # (Auto) 0.24 Baso # (Auto) 0.02 ESR PT INR APTT 22.1 PTT Ratio 0.8 Sodium 143 Potassium 3.6 Chloride 115 H Carbon Dioxide 20 L Anion Gap 8.0 BUN 12 Creatinine 0.86 Est Cr Clr Drug Dosing 77.4 Est GFR ( Amer) 93.9 Est GFR (Non-Af Amer) 81.0 BUN/Creatinine Ratio 14.4 Glucose 89 Calcium 7.8 L Magnesium Total Bilirubin AST ALT Alkaline Phosphatase C-Reactive Protein Total Protein Albumin Globulin Albumin/Globulin Ratio Lipase Urine Color Urine Appearance Urine pH Ur Specific [place] Urine Protein Urine Glucose (UA) Urine Ketones Urine Blood Urine Nitrite Urine Bilirubin Urine Urobilinogen Ur Leukocyte Esterase Urine WBC (Auto) Urine RBC (Auto) U Hyaline Cast (Auto) U Epithel Cells (Auto) Urine Bacteria (Auto) Urine Test Stl C. diff Tox B Gene Blood Type Antibody Screen 11/05/18 11/05/18 11/05/18 10:45 10:45 10:45 WBC RBC Hgb 13.3 Hct 37.3 MCV MCH MCHC RDW Std Deviation RDW Coeff of Vik Plt Count MPV Immature Gran % (Auto) Neut % (Auto) Lymph % (Auto) [place] % (Auto) Eos % (Auto) Baso % (Auto) Immature Gran # (Auto) Neut # (Auto) Lymph # (Auto) [place] # (Auto) Eos # (Auto) Baso # (Auto) ESR 2 PT INR APTT PTT Ratio Sodium Potassium Chloride Carbon Dioxide Anion Gap BUN Creatinine Est Cr Clr Drug Dosing Est GFR ( Amer) Est GFR (Non-Af Amer) BUN/Creatinine Ratio Glucose Calcium Magnesium Total Bilirubin AST ALT Alkaline Phosphatase C-Reactive Protein 0.47 H Total Protein Albumin Globulin Albumin/Globulin Ratio Lipase Urine Color Urine Appearance Urine pH Ur Specific [place] Urine Protein Urine Glucose (UA) Urine Ketones Urine Blood Urine Nitrite Urine Bilirubin Urine Urobilinogen Ur Leukocyte Esterase Urine WBC (Auto) Urine RBC (Auto) U Hyaline Cast (Auto) U Epithel Cells (Auto) Urine Bacteria (Auto) Urine Test Stl C. diff Tox B Gene Blood Type Antibody Screen 11/05/18 18:26 WBC RBC Hgb 14.1 Hct 39.4 MCV MCH MCHC RDW Std Deviation RDW Coeff of Vik Plt Count MPV Immature Gran % (Auto) Neut % (Auto) Lymph % (Auto) [place] % (Auto) Eos % (Auto) Baso % (Auto) Immature Gran # (Auto) Neut # (Auto) Lymph # (Auto) [place] # (Auto) Eos # (Auto) Baso # (Auto) ESR PT INR APTT PTT Ratio Sodium Potassium Chloride Carbon Dioxide Anion Gap BUN Creatinine Est Cr Clr Drug Dosing Est GFR ( Amer) Est GFR (Non-Af Amer) BUN/Creatinine Ratio Glucose Calcium Magnesium Total Bilirubin AST ALT Alkaline Phosphatase C-Reactive Protein Total Protein Albumin Globulin Albumin/Globulin Ratio Lipase Urine Color Urine Appearance Urine pH Ur Specific [place] Urine Protein Urine Glucose (UA) Urine Ketones Urine Blood Urine Nitrite Urine Bilirubin Urine Urobilinogen Ur Leukocyte Esterase Urine WBC (Auto) Urine RBC (Auto) U Hyaline Cast (Auto) U Epithel Cells (Auto) Urine Bacteria (Auto) Urine Test Stl C. diff Tox B Gene Blood Type Antibody Screen
[2018-11-06 11:11] LABS: BUN Creatinine Ratio 8.8 (10-20); Calcium 8.1 mg/dl (8.5-10.1); Creatinine Clr Calc Pharmacy 79.2 ml/min; Est GFR (African American) 96.6; Est GFR (Non-African American) 83.3; Potassium 3.9 mmol/L (3.5-5.1)
[2018-11-06] MEDS ORDERED: BISACODYL 5 MG TABEC PO ONE (17:00)
[2018-11-06] MEDS ORDERED: POLYETHYLENE (MIRALAX) 17 GM PACK PO ONE ×2 (17:00→21:00)
--- NOTE | 2018-11-06 18:09 | Hospitalist Progress Note ---
Date of Service November 06, 2018 Assessment & Plan (1) Abdominal pain: Abdominal pain improved: Appreciate input from GI Never had a colonoscopy in the past, per GI unsure if truly has underlying ulcerative colitis given patient is asymptomatic for most part of the year until this acute episode Need to rule out viral and/or bacterial gastroenteritis Stool stool cultures/C. difficile ordered Patient's anticoagulation Xarelto will be continued to be on hold for 1 additional day Plan for colonoscopy on , 11/07/2018 (2) Colitis: Possible secondary to viral gastroenteritis? Stool C. difficile negative Very unlikely for inflammatory bowel disease, patient never been on any treatment, presents with one episode Will need outpatient colonoscopy and biopsy for definitive diagnosis Appreciate input from GI (3) Colitis with rectal bleeding: CT abdomen pelvis: Shows 1. Extensive colonic wall thickening involving the sigmoid colon to the ascending colon. There is no significant pericolonic inflammatory change to suggest an advanced colitis: Most likely represents a mild infectious or inflammatory colitis. Inflammatory bowel disease not excluded Appreciate input from GI, Follow stool cultures to rule out infectious origin On empiric antibiotic with IV Unasyn No further episodes of GI bleed, H&H remained stable Plan for colonoscopy during this hospital admission (4) Ulcerative colitis: No definitive diagnosis, Plan for colonoscopy this admission with biopsy to assess for inflammatory bowel disease Anticoagulation Xarelto needs to be on hold for 3 days prior for the procedure (5) Factor V Leiden: Resume Xarelto (6) Chronic anticoagulation: On chronic anticoagulation, Xarelto resumed No further episode of GI bleeding, abdominal pain has resolved, H&H been stable Unable to have colonoscopy today No GI procedure scheduled this outpatient (7) Pulmonary embolism: Continue on Xarelto (8) Recurrent deep vein thrombosis (DVT): Continue on Xarelto: CODE STATUS: Full code Disposition: Plan to discharge home when medically stable Patient will be scheduled for outpatient follow-up with gastroenterology Subjective Patient complains of abdominal distention, lower abdominal discomfort, pain has improved, no nausea vomiting, wondering if diet could be advanced, had not had any bowel movement Physical Exam Constitutional: WD/WN, vitals as above well groomed, cooperative and comfortable; no acute distress Eyes: PERRL, conjunctivae normal, anicteric sclerae ENMT: external ear and nose normal, oropharynx normal Mouth: no TMJ abnormality and no TMJ clicking Mallampati Class: II Neck: trachea midline, no thyromegaly normal visual inspection; neck extension not limited Respiratory: normal respiratory effort, lungs clear to auscultation normal respiratory effort; no respiratory distress Auscultation: lungs clear to auscultation bilaterally and + wheezes (Mild increase auscultation); no crackles and no rhonchi Cardiovascular: RRR, no murmur, no edema Rate/Rhythm: regular rate and regular rhythm Vessels: normal peripheral pulses Extremities: + pedal edema (+1) Gastrointestinal (Abdomen): Inspection/Auscultation: + abdomen distended, normal bowel sounds and + hypoactive bowel sounds Percussion/Palpation: abdomen soft; abdomen nontender (diffuse ) and no hepatosplenomegaly Musculoskeletal: no cyanosis or clubbing, extremities motor strength 5/5 Skin: no rashes, warm and dry no jaundice Neurologic: PERRL, EOMI, accommodation nl, no face palsy, no dysarthria Motor/Sensory: no asterixis Psychiatric: A+Ox3, euthymic affect Orientation: alert and oriented x 3 Lymphatic: no lymphedema Results & Data Vital Signs (Past 12 Hours) Vital Signs Temp Pulse Resp BP Pulse Ox 11/06/18 17:40 117/72 11/06/18 15:56 36.5 C 62 18 103/69 98 11/06/18 07:11 36.8 C 69 18 121/80 97 (1) Abdominal pain Abdominal location: lower abdomen, unspecified Qualified Code(s): R10.30 - Lower abdominal pain, unspecified
[2018-11-06] MEDS: LORazepam 0.5 MG TAB PO PRN (18:30)
[2018-11-07] MEDS: HYDROmorphone INJ 0.5 MG/0.5 ML SYR IV PRN ×4 (01:40→19:19)
[2018-11-07] MEDS: HEPARIN 100 UNIT/ML 5ML FLUSH IV PRN ×3 (01:41→19:21)
--- NOTE | 2018-11-07 07:54 | Anesthesiology Consultation ---
Date of Service November 07, 2018 Assessment & Plan Chart Review Chart Review: Acceptable Risk for Surgery and Patient NOT seen in Pre Admission Testing Consults Requested none ASA ASA3 Proposed Anesthesia Anesthesia Type: MAC Risk / Benefits Reviewed With: PT / POA / Parent / Guardian, Accepts Plan and Informed Consent Obtained History Surgery Operation Date: 11/07/18 08:30 Proposed Procedures p Colonoscopy Dr Jeremie Chao Height/Weight Height: 1.57 m Weight: 74.8 kg Allergies Allergy/AdvReac Type Severity Reaction Status Date / Time kiwi Allergy Severe ANAPHYLAXIS Verified 10/25/18 19:02 metronidazole Allergy Intermediate hives Verified 10/25/18 19:02 morphine Allergy Intermediate chest Verified 10/25/18 19:02 pain; trouble breathing prochlorperazine Allergy Unknown SEVERE Verified 10/25/18 19:02 ALLERGIC RXN tree nut Allergy Anaphylaxis Verified 10/25/18 19:02 Medications Home Medications Medication Instructions Recorded Confirmed Last Taken albuterol sulfate 2 puff INHALATION QID PRN 06/02/18 11/04/18 Unknown lorazepam 0.5 mg PO TID PRN 06/02/18 11/04/18 06/02/18 05:30 sumatriptan succinate 50 mg PO UD PRN 06/02/18 11/04/18 Unknown topiramate 200 mg PO BID 06/02/18 11/04/18 06/02/18 05:30 ondansetron HCl [Zofran] 4 mg PO Q6 PRN #6 tab 09/29/18 11/04/18 Unknown pantoprazole 40 mg PO DAILY 09/29/18 11/04/18 Unknown ranitidine HCl 150 mg PO BID 09/29/18 11/04/18 Unknown fluoxetine 40 mg PO DAILY 10/25/18 11/04/18 Unknown meclizine 25 mg PO TID PRN 10/25/18 11/04/18 Unknown hydrocodone-acetaminophen [Davis] 1 tab PO QID PRN #30 tab 10/28/18 11/04/18 Unknown rivaroxaban [Xarelto] 10 mg PO BID 11/04/18 11/04/18 Unknown Active Medications Generic Name Dose Route Start Last Admin Trade Name Freq PRN Reason Stop Dose Admin Hydrocodone Bitart/Acetaminophen 1 tab 11/04/18 22:01 11/05/18 23:32 Davis 5/325 PO 11/18/18 22:00 1 tab QID PRN Administration pain Dicyclomine HCl 10 mg 11/05/18 14:00 11/06/18 21:39 Bentyl PO 12/05/18 13:59 10 mg TID VINAYAK Administration Docusate Sodium 100 mg 11/05/18 18:00 11/06/18 08:06 Colace PO 12/05/18 17:59 100 mg DAILY VINAYAK Administration Fluoxetine HCl 40 mg 11/05/18 09:00 11/06/18 08:06 Prozac PO 12/05/18 08:59 40 mg DAILY VINAYAK Administration Heparin Sodium (Porcine) 5 ml 11/05/18 00:20 11/07/18 01:41 Heparin Sod 100 Unit/Ml Flush IV 12/05/18 00:19 5 ml PRN PRN Administration Undecided Hydromorphone HCl 0.5 mg 11/04/18 22:02 11/07/18 10:35 Dilaudid IV 11/18/18 22:01 0.5 mg Q4H PRN Administration Pain Lorazepam 0.5 mg 11/05/18 00:05 11/06/18 18:30 Ativan PO 12/05/18 00:04 0.5 mg TID PRN Administration Anxiety Metoclopramide HCl 10 mg 11/04/18 22:33 11/06/18 21:34 Reglan IV 12/04/18 22:32 10 mg Q6H PRN Administration Nausea Pantoprazole Sodium 40 mg 11/05/18 09:00 11/06/18 08:06 Protonix PO 12/05/18 08:59 40 mg DAILY VINAYAK Administration Ranitidine HCl 150 mg 11/05/18 09:00 11/06/18 21:39 Zantac PO 12/05/18 08:59 150 mg BID VINAYAK Administration Topiramate 200 mg 11/05/18 09:00 11/06/18 21:40 Topamax PO 12/05/18 08:59 200 mg BID VINAYAK Administration NPO Date Last Intake of Fluids: 11/06/18 Time Last Intake of Fluids: 21:00 Date Last Intake of Solids: 11/04/18 Time Last Intake of Solids: 13:00 Past Medical History Medical History Chronic anticoagulation (Chronic) Pulmonary embolism (Chronic) Recurrent deep vein thrombosis (DVT) (Chronic) Seizure (Chronic) Last episode about 10 years ago. 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 Controlled with topamax. Depression (Chronic) Tobacco abuse (Chronic) Ulcerative colitis (Chronic) Factor V Leiden (Resolved) PTSD (post-traumatic stress disorder) (Chronic) Suicidal ideation (Resolved) Ureteral stone (Resolved) Asthma Not using inhaler on a regular basis. Denies having any h/o hospitalization or intubation due to asthma Exercise / Class Metabolic Activity II 4-5 Yardwork/Stairs/Walk up hill Past Family History Family History Mother Dyslipidemia Past Surgical History Surgical History History of cholecystectomy (Chronic) H/O tubal ligation (Chronic) Hx of tonsillectomy (Chronic) S/P ureteral stent placement 2017 Past Anesthesia History No Hx of Anesthesia Complications and Other ?mother had h/o cardiac arrest with anesthesia back in 1970s (?allergic reaction to anesthesia per pt). Pt not sure if it was MH or not. Pt denies ever having problem under [place]. History of PONV No Hx of PONV and No Hx of Motion Sickness Social History Smoking Status: Light tobacco smoker (1.5 pack/week) Do You Dip or Chew Tobacco: No Hx Alcohol Use: Yes alcohol intake frequency: holidays/special occasions only Hx Substance Use: No Review of Systems Respiratory: no dyspnea Cardiovascular: no chest pain, no chest pain with activity and no dyspnea on exertion Gastrointestinal: no nausea and no vomiting Physical Exam Vital Signs Last Vital Signs Temp 36.8 C 11/07/18 07:21 Pulse 64 11/07/18 07:21 Resp 18 11/07/18 07:21 BP 111/74 11/07/18 07:21 Pulse Ox 94 11/07/18 07:21 ENMT Mouth: no TMJ abnormality and no TMJ clicking Thyromental Distance: > or= 3.5 Finger Breadths Mallampati Class: II Mouth / Teeth: 1. MIssing Neck normal visual inspection; neck extension not limited Respiratory Auscultation: lungs clear to auscultation bilaterally Cardiovascular Rate/Rhythm: regular rate and regular rhythm Psychiatric Orientation: alert and oriented x 3 Testing Electrocardiogram Date: 10/25/18 Findings: + NSR @ (67 bpm) Normal sinus rhythm with sinus arrhythmia Low voltage QRS Borderline ECG When compared with ECG of 29-SEP-2018 18:41, No significant change was found Confirmed by Benjy Guzman ([id number]) on 10/27/2018 6:57:26 AM Chest X-Ray Date: 11/04/18 Findings: + NAD Laboratory Results 11/05/18 18:26 11/06/18 10:29 PT 10.9 Seconds (9.0-12.0) 11/04/18 18:57 INR 1.1 (0.9-1.1) 11/04/18 18:57 APTT 22.1 Seconds (21.0-31.0) 11/05/18 06:50 Yellow 11/05/18 05:20 Clear (Clear) 11/05/18 05:20 5.5 (4.5-7.5) 11/05/18 05:20 Ur Specific [place] 1.023 (1.000-1.030) 11/05/18 05:20 Negative (Negative) 11/05/18 05:20 Negative (Negative) 11/05/18 05:20 Negative (Negative) 11/05/18 05:20 Negative (Negative) 11/05/18 05:20 Ur Leukocyte Esterase Negative (Negative) 11/05/18 05:20 1-5 /hpf (0-5) 11/05/18 05:20 10-30 /hpf (0-4) H 11/05/18 05:20 U Hyaline Cast (Auto) 1-5 /lpf (0-5) 11/05/18 05:20 U Epithel Cells (Auto) >30 /lpf (0-5) H 11/05/18 05:20 Negative (Negative) 11/05/18 05:20 Negative (Negative) 11/05/18 05:20 Blood Type A Negative 11/04/18 23:55 Antibody Screen NEGATIVE 11/04/18 23:55 11/04/18 18:00 Shiga Toxin Test - Preliminary Stool Stool Culture - Preliminary No Salmonella isolated to date, No Shigella isolated to date, No Campylobacter jejuni isolated to date. 11/04/18 18:00 WBC Smear - Final Stool 11/04/18 18:18 POC Glucose (other) 121 H 11/05/18 05:20 Urine Test Negative
--- NOTE | 2018-11-07 08:46 | Gastroenterology Progress Note ---
Date of Service November 07, 2018 Results & Data Vital Signs (Past 12 Hours) Vital Signs Temp Pulse Resp BP Pulse Ox 11/07/18 07:21 36.8 C 64 18 111/74 94 11/06/18 23:05 36.7 C 58 L 18 97/65 L 94
--- NOTE | 2018-11-07 08:49 | Gastroenterology Progress Note ---
Date of Service November 07, 2018 Assessment & Plan (1) Factor V Leiden: (2) Ulcerative colitis: Pt is a 48 y/o female w hx of Factor V Leiden w DVT/PE on Xarelto, reported UC not on maintenance meds who presented w n/v, abd pain, loose tools and BRBPR. H/H normal. CT abd/pelvis w diffuse non specific colitis. Cdiff negative, stool cx pending. DDx: infectious colitis vs UC flare. Persistent abd bloating w/o radiographic evidence of pertioneal fluid, bowel distension; abd cramping. No more BMs or rectal bleeding since admitted. Likely bacterial vs viral gastroenteritis. - Keep NPO. Colonoscopy today; GI will give further recs after colonoscopy is completed. - Bentyl 10mg TID prn abd cramping - Hold Xarelto for colonoscopy Supervising Physician Co-Signing Physician Notes Attending attestation I have seen, examined this patient, and agree with the findings and above by our mid-level provider SERGEI Latif. Patient overall improved, less abdominal pain and distention, planning for colon oscopy today to rule out patient's reported history of ulcerative colitis. Subjective No acute events overnight. Pt completed bowel prep in anticipation for colonoscopy today. Kept NPO. Said last BM 1hr ago, clear Review of Systems Review of Systems: All systems reviewed & are unremarkable except as noted in HPI & below Physical Exam Constitutional: WD/WN, vitals as above well groomed, cooperative and comfortable Eyes: PERRL, conjunctivae normal, anicteric sclerae ENMT: external ear and nose normal, oropharynx normal Respiratory: normal respiratory effort, lungs clear to auscultation Cardiovascular: RRR, no murmur, no edema Gastrointestinal (Abdomen): Inspection/Auscultation: + hypoactive bowel sounds Percussion/Palpation: abdomen soft; abdomen nontender (diffuse ) Skin: no rashes, warm and dry no jaundice Neurologic: Motor/Sensory: no asterixis Psychiatric: A+Ox3, euthymic affect Lymphatic: no lymphedema Results & Data Vital Signs (Past 12 Hours) Vital Signs Temp Pulse Resp BP Pulse Ox 11/07/18 07:21 36.8 C 64 18 111/74 94 11/06/18 23:05 36.7 C 58 L 18 97/65 L 94
[2018-11-07 10:21] LABS: iSTAT Hemoglobin 16.7 g/dl (12.0-16.0); iSTAT Ionized Calcium 1.14 mmol/l (1.12-1.32); iSTAT Potassium 4.4 mEq/L (3.3-5.0)
[2018-11-07] MEDS ORDERED: LIDOCAINE HCL 2% 2 ML VIAL/AMP(20MG/ML) INFIL ONE (12:03)
[2018-11-07] MEDS ORDERED: PROPOFOL IV EMULSION 10 MG/ML 20 ML VIAL IV ONE (12:03)
[2018-11-07] MEDS ORDERED: DEXAMETHASONE SOD INJ 4 MG/ML VIAL ONE (12:34)
--- NOTE | 2018-11-07 12:57 | GI REPORT ---
Patient Name: Jemima Pierce Procedure Date: 11/07/2018 12:11 PM Date of : 1970 Admit Type: Inpatient Age: 48 Gender: Female Attending MD: Brando Chao MD Procedure: Colonoscopy Providers: Brando Chao MD Referring MD: Charlette Barrera Indications: Chronic diarrhea, Rectal bleeding, Patient with reported history of ulcerative colitis. Medicines: Propofol per Anesthesia Complications: Emesis and possible aspiration. Aspiration Estimated Blood Loss: Estimated blood loss: none. Procedure: Pre-Anesthesia Assessment: - Pre-Anesthesia Assessment: - Prior to the procedure, a History and Physical was performed, and patient medications, allergies and sensitivities were reviewed. The patient's tolerance of previous anesthesia was reviewed. Please see XIFIN for complete details. - The risks and benefits of the procedure and the sedation options and risks were discussed with the patient. All questions were answered and informed consent was obtained. - Patient identification and proposed procedure were verified prior to the procedure by the physician and the nurse. The procedure was verified in the pre-procedure area in the procedure room. After obtaining informed consent, the endoscope was passed carefully and meticuously under direct vision and only advanced when the lumen was clearly identified, C02 insuflation was utilized throughout the entirity of the procedure. Throughout the procedure, the patient's blood pressure, pulse, and oxygen saturations were monitored continuously. After I obtained informed consent, the scope was passed under direct vision. Throughout the procedure, the patient's blood pressure, pulse, and oxygen saturations were monitored continuously. The Colonoscope was introduced through the anus with the intention of advancing to the cecum. The scope was advanced to the rectum before the procedure was aborted. Medications were given. The colonoscopy was performed without difficulty. The quality of the bowel preparation was good. The patient tolerated the procedure poorly due to the patient's respiratory instability (pulmonary aspiration). Findings: The distal rectum appeared normal. Upon Anesthesia induction and insertion of scope, inserting no more than 2-3 cm, the YARD MOTOR OPERATOR was concerned she had appearances of impending emesis. Therefore scope was withdrawn. Endoscopic portion no longer than 2-4 seconds in duration. After withdrawl of the scope, patient had low volume bilious emesis with transient desaturations. Was suctioned from anesthesia and placed on O2 via facemask. Procedure was aborted and other than the most distal two-three cm of the rectum, no further endsocopic exam completed. No pressure or other manipulation was applied from GI team. Impression: - The distal rectum is normal making UC very unlikely, however, does not rule out Crohn's. - No specimens collected. - No endoscopic exam completed given limited scope of procedure. Recommendation: - Transfer to higher level of inpatient care. CXR, abx, pulmonary toilet, treatment for possible aspiration/pneumonitits - Repeat attempt at endoscopic examination pending patients clinical course. Brando Chao MD 11/07/2018 12:56:20 PM This report has been signed electronically. Note Initiated On: 11/07/2018 12:11 PM Number of Addenda: 0 I attest to the content of the Intraoperative Record and orders documented therein, exceptions below {[id number]}
--- NOTE | 2018-11-07 13:29 | XRay Report ---
XR chest 1V portable CLINICAL HISTORY: aspiration COMPARISON STUDY: Chest CT October 26, 2018. Chest radiograph November 04, 2018. FINDINGS: There is no pneumothorax or pleural effusion. Right lung is clear. Mild left basilar opacit y is present. There is no evidence for pulmonary edema. Cardiac size is normal. Mediastinal contours are unremarkable. IMPRESSION: Mild left basilar opacity. The appearance favors atelectasis. Pneumonia could appear sim ilar although is considered less likely. Electronically signed by: Louis Roberts M.D. 11/07/2018 1:28 PM
[2018-11-07] MEDS ORDERED: PIPERACILL/TAZOBAC CONSULT ACTIVE PRN (13:36)
--- NOTE | 2018-11-07 13:56 | Anesthesiology Progress Note ---
Date of Service November 07, 2018 Anesthesia Post Procedure Vital Signs Vital Signs: Temp Pulse Pulse Resp BP Pulse Ox 11/07/18 13:45 65 20 112/65 93 11/07/18 13:30 64 20 116/70 96 11/07/18 13:07 56 L 20 131/74 97 11/07/18 12:57 57 L 20 113/73 96 11/07/18 12:47 66 20 113/74 94 11/07/18 11:14 36.5 C 72 16 102/73 96 11/07/18 07:21 36.8 C 64 18 111/74 94 11/06/18 23:05 36.7 C 58 L 18 97/65 L 94 11/06/18 17:40 117/72 11/06/18 15:56 36.5 C 62 18 103/69 98 Pain Intensity Bilateral Lower Back: Pain Intensity: 6 Left Abdomen: Pain Intensity: 6 Transfer of Care Handoff Completed per policy Notes Mental Status: alert / awake / arousable Patient Amnestic to Procedure: Yes Nausea / Vomiting: adequately controlled Pain: adequately controlled Airway Patency, RR, SpO2: stable & adequate BP & HR: stable & adequate Hydration State: stable & adequate Anesthetic Complications: no major complications apparent Notes: Called by Carrie VILLASEÑOR to room. Pt was just receiving sedation and procedure was barely started when patient started vomiting low volume bilious materials. Patient was laying on her side, mouth suctioned and procedure aborted. Pt was woken up and NRB mask placed on patient. Decadron IV was also given. Pt already placed on unasyn by hospitalist team for her abdominal pain/UC. Pt taken to PACU. Chest xray ordered. Dr. Chao updated Dr. Monson, the hospitalist taken care of the patient. Pt will be transferred to PCU for closer observation. CXR done shows mild left basilar opacity which favors atelectasis. PNA could appear similar although considered less likely. Pt doing well in recovery, maintaining her sats. Pt and her mother in law, who was at bedside, were updated with the patients status (permission was given by patient to talk to her mother in law). All questions and concerns were answered. Pt and mother in law understood and agreed with plan. VSS throughout
[2018-11-07] MEDS: PANTOprazole 40 MG TAB PO SCH (14:15)
[2018-11-07] MEDS: TOPIRAMATE 100 MG TAB PO SCH ×2 (14:15→20:07)
[2018-11-07] MEDS: DOCUSATE SODIUM 100 MG CAP PO SCH (14:15)
[2018-11-07] MEDS: DICYCLOMINE HCL 10 MG CAP PO SCH ×3 (14:15→20:06)
[2018-11-07] MEDS: FLUOXETINE HCL 20 MG CAP PO SCH ×2 (14:15→20:06)
[2018-11-07] MEDS ORDERED: PIPERACILLIN/TAZOBACTAM 3.375 GM in DEXTROSE 5% 100 ML IV ONE (14:45)
[2018-11-07] MEDS: METOCLOPRAMIDE HCL INJ 5 MG/ML 2 ML VIAL IV PRN (15:01)
[2018-11-07] MEDS ORDERED: PROMETHAZINE HCL 12.5 MG in SODIUM CHLORIDE 0.9% 50 ML IV PRN (15:28)
[2018-11-07] MEDS ORDERED: CHLORASEPTIC 1.4% SOLN 180 ML BTL MT PRN (16:58)
[2018-11-07] MEDS ORDERED: ALBUTEROL HFA 8 GM INHALER INH PRN (17:00)
[2018-11-07] MEDS: PROMETHAZINE HCL 12.5 MG in SODIUM CHLORIDE 0.9% 50 ML IV PRN (17:22)
[2018-11-07] MEDS ORDERED: SUMAtriptan succinate 50 MG TAB PO PRN (18:57)
[2018-11-07] MEDS ORDERED: MECLIZINE HCL 25 MG TAB PO PRN (18:57)
--- NOTE | 2018-11-07 18:57 | Hospitalist Progress Note ---
Date of Service November 07, 2018 Assessment & Plan (1) Aspiration pneumonitis: Developed nausea/vomiting after administration of anesthetics, prior to colonoscopy procedure Colonoscopy is counseled Patient started with empiric antibiotic with IV Zosyn for possible aspiration pneumonitis Remains afebrile, no cough, complaints of sore throat- secondary to suctioning in the endoscopy suite Continue to monitoring telemetry Repeat chest x-ray in a.m. (2) Abdominal pain: Abdominal pain improved: Appreciate input from GI Never had a colonoscopy in the past, per GI unsure if truly has underlying ulcerative colitis given patient is asymptomatic for most part of the year until this acute episode Need to rule out viral and/or bacterial gastroenteritis Stool stool cultures/C. difficile negative Unable to proceed colonoscopy, as patient had nausea vomiting after administration of anesthetics Diet ordered, No evidence of GI bleed, no bloody bowel movement, GI recommends outpatient follow-up, and colonoscopy scheduled in 2 to 3 weeks (3) Colitis: Possible secondary to viral gastroenteritis? Stool C. difficile negative Very unlikely for inflammatory bowel disease, patient never been on any treatment, presents with one episode Will need outpatient colonoscopy and biopsy for definitive diagnosis Appreciate input from GI (4) Colitis with rectal bleeding: Resolved had no further bowel movement H&H been stable CT abdomen pelvis: Shows 1. Extensive colonic wall thickening involving the sigmoid colon to the ascending colon. There is no significant pericolonic inflammatory change to suggest an advanced colitis: Most likely represents a mild infectious or inflammatory colitis. Inflammatory bowel disease not excluded Appreciate input from GI, Colonoscopy could not be done secondary to reaction to anesthetics, patient will be followed with GI clinic (5) Ulcerative colitis: No definitive diagnosis, Colonoscopy could not be done this admission Will need outpatient colonoscopy with biopsy to assess for inflammatory bowel disease Anticoagulation Xarelto resumed (6) Factor V Leiden: Resume Xarelto (7) Chronic anticoagulation: On chronic anticoagulation, Xarelto resumed No further episode of GI bleeding, abdominal pain has resolved, H&H been stable Unable to have colonoscopy today No GI procedure scheduled this outpatient (8) Pulmonary embolism: Continue on Xarelto (9) Recurrent deep vein thrombosis (DVT): Continue on Xarelto: CODE STATUS: Full code Disposition: Plan to discharge home when medically stable Patient will be scheduled for outpatient follow-up with gastroenterology Subjective Patient developed severe nausea, vomiting when attempting to administer anesth esia for colonoscopy Concern for possible aspiration Colonoscopy procedure was aborted Patient was sent to telemetry floor, Seen in room 275 /2 Reports of hoarseness of voice, sore throat, denies of any cough, shortness of breath Patient had multiple surgeries in the past, including laparoscopic cholecystectomy, never had this type of reaction to anesthesia in the past remains afebrile Remains afebrile Vitals stable Patient started with empiric antibiotic with Zosyn, Portable chest x-ray shows left lower lobe atelectasis, Follow aspiration precaution No complaint of abdominal pain, no nausea, no bloody bowel movement Patient will be scheduled for outpatient colonoscopy in 3 to 4 weeks Physical Exam Constitutional: WD/WN, vitals as above no acute distress Eyes: PERRL, conjunctivae normal, anicteric sclerae ENMT: external ear and nose normal, oropharynx normal Neck: trachea midline, no thyromegaly Respiratory: normal respiratory effort; no respiratory distress Auscultation: + wheezes (Mild increase auscultation); no crackles and no rhonchi Cardiovascular: RRR, no murmur, no edema Gastrointestinal (Abdomen): Inspection/Auscultation: + abdomen distended and normal bowel sounds Percussion/Palpation: abdomen soft Musculoskeletal: no cyanosis or clubbing, extremities motor strength 5/5 Skin: no rashes, warm and dry Neurologic: PERRL, EOMI, accommodation nl, no face palsy, no dysarthria Psychiatric: A+Ox3, euthymic affect Results & Data Vital Signs (Past 12 Hours) Vital Signs Temp Pulse Pulse Pulse Resp BP Pulse Ox 11/07/18 16:02 67 11/07/18 15:06 36.6 C 75 16 104/67 93 11/07/18 14:15 54 L 20 117/74 94 11/07/18 14:00 64 20 104/72 93 11/07/18 13:45 65 20 112/65 93 11/07/18 13:30 64 20 116/70 96 11/07/18 13:07 56 L 20 131/74 97 11/07/18 12:57 57 L 20 113/73 96 11/07/18 12:47 66 20 113/74 94 11/07/18 11:14 36.5 C 72 16 102/73 96 11/07/18 07:21 36.8 C 64 18 111/74 94 (1) Abdominal pain Abdominal location: lower abdomen, unspecified Qualified Code(s): R10.30 - Lower abdominal pain, unspecified (2) Pulmonary embolism Pulmonary embolism type: unspecified Chronicity: chronic Acute cor pulmonale presence: without acute cor pulmonale Qualified Code(s): I27.82 - Chronic pulmonary embolism
[2018-11-07] MEDS: guaiFENesin 600 MG TABCR PO SCH (20:05)
[2018-11-07] MEDS: RIVAROXABAN 15 MG TAB PO SCH (20:06)
[2018-11-07] MEDS: PIPERACILLIN/TAZOBACTAM 3.375 GM in DEXTROSE 5% 100 ML IV SCH (20:12)
[2018-11-07] MEDS: KETOROLAC TROMETHAMINE 15 MG/ML VIAL IV PRN (20:12)
[2018-11-08] MEDS: HYDROmorphone INJ 0.5 MG/0.5 ML SYR IV PRN ×6 (00:03→22:06)
[2018-11-08] MEDS: HEPARIN 100 UNIT/ML 5ML FLUSH IV PRN ×5 (00:07→20:01)
[2018-11-08] MEDS: KETOROLAC TROMETHAMINE 15 MG/ML VIAL IV PRN ×3 (02:10→19:57)
[2018-11-08] MEDS: LORazepam 0.5 MG TAB PO PRN (02:10)
[2018-11-08] MEDS: PROMETHAZINE HCL 12.5 MG in SODIUM CHLORIDE 0.9% 50 ML IV PRN ×3 (04:13→20:06)
[2018-11-08] MEDS: PIPERACILLIN/TAZOBACTAM 3.375 GM in DEXTROSE 5% 100 ML IV SCH ×2 (04:32→12:58)
--- NOTE | 2018-11-08 07:05 | XRay Report ---
XR chest 1V not portable CLINICAL HISTORY: pneumonia history of COMPARISON STUDY: 11/07/2018 FINDINGS: Small parenchymal infiltrate versus atelectasis left base. This is unchanged from the prior study. Diaphragms are smooth. Lungs otherwise appear clear. IMPRESSION: Unchanged small parenchymal infiltrate left base versus atelectasis. The above report was generated using voice recognition software. It may contain grammatical, syntax or spelling errors. Electronically signed by: Mark Anthony Darling M.D. 11/08/2018 7:04 AM
[2018-11-08] MEDS: DICYCLOMINE HCL 10 MG CAP PO SCH ×3 (07:51→20:39)
[2018-11-08] MEDS: RIVAROXABAN 15 MG TAB PO SCH ×2 (07:52→20:41)
[2018-11-08] MEDS: guaiFENesin 600 MG TABCR PO SCH ×2 (07:54→20:41)
[2018-11-08] MEDS: DOCUSATE SODIUM 100 MG CAP PO SCH (07:54)
[2018-11-08] MEDS: PANTOprazole 40 MG TAB PO SCH (07:54)
[2018-11-08] MEDS: TOPIRAMATE 100 MG TAB PO SCH ×2 (07:55→20:38)
[2018-11-08] MEDS: METOCLOPRAMIDE HCL INJ 5 MG/ML 2 ML VIAL IV PRN (08:01)
[2018-11-08] MEDS: GUAIFENESIN/DEXTROM SYRUP 200MG/20MG 10ML UDC PO PRN ×2 (08:46→19:57)
[2018-11-08] MEDS: FLUOXETINE HCL 20 MG CAP PO SCH (08:46)
--- NOTE | 2018-11-08 09:24 | Gastroenterology Progress Note ---
Date of Service November 08, 2018 Assessment & Plan (1) Factor V Leiden: (2) Ulcerative colitis: Pt is a 48 y/o female w hx of Factor V Leiden w DVT/PE on Xarelto, reported UC not on maintenance meds who presented w n/v, abd pain, loose tools and BRBPR. H/H normal. CT abd/pelvis w diffuse non specific colitis. Cdiff negative, stool cx pending. DDx: infectious colitis vs UC flare. Persistent abd bloating w/o radiographic evidence of pertioneal fluid, bowel distension; abd cramping. No more BMs or rectal bleeding since admitted. Likely bacterial vs viral gastroenteritis. Unfortunately developed nausea and vomiting after anesthetics were administered and colonoscopy was cancelled - No GI contraindication to diet - Will need OP colonoscopy - Aspiration pneumonia - Afebrile - Chest XR reviewed - Continue IV ABX for now - Appreciate primary service input - Continue symptomatic management from a GI standpoint - GI to sign off. Thank you for allowing us to participate in the care of this patient. Please call with any acute changes, questions or concerns. Please see addendum below with additional recommendation from my supervising physician. Supervising Physician Co-Signing Physician Notes Attending attestation I have seen, examined this patient, and agree with the findings and above by our mid-level provider SERGEI Peng. -On room air without complications, eating chicken fingers and [place] fries during her interview with no complaints of abdominal pain nausea or vomiting. -Reasonable to transition to oral antibiotics for short course of 3 to 5 days, follow-up with Ms. Angeles Hernandez in 3-4 wks -Will sign off Subjective Pt was seen and evaluated, chart reviewed. Colonoscopy yesterday cancelled. Developed nausea/vomiting after administration of anesthetics, concern for aspiration. Was started with empiric antibiotic with IV Zosyn for possible aspiration pneumonitis. She did develop a cough but denies sputum. Afebrile. No change in GI symptoms. Review of Systems Constitutional: no fever, no body aches and no weakness Respiratory: + cough and + chest congestion; no dyspnea, no dyspnea on exertion, no pain with cough and no sputum production Cardiovascular: no chest pain, no radiating jaw, neck or arm pain, no dyspnea on exertion, no palpitations and no edema Gastrointestinal: + bloating; no abdominal pain, no early satiety, no nausea, no vomiting, no hematemesis, no pain with swallowing, no cramping and no excessive flatulence Physical Exam Constitutional: WD/WN, vitals as above Respiratory: normal respiratory effort (wearing O2 nasal canula) Auscultation: + diminished lung sounds; no crackles and no wheezes Cardiovascular: RRR, no murmur, no edema Gastrointestinal (Abdomen): Inspection/Auscultation: normal bowel sounds Percussion/Palpation: + abdomen tender and abdomen soft; no guarding Skin: no rashes, warm and dry Results & Data Vital Signs (Past 12 Hours) Vital Signs Temp Pulse Pulse Resp BP Pulse Ox 11/08/18 07:33 36.8 C 70 18 122/76 94 11/08/18 07:26 63 11/08/18 04:26 36.4 C L 62 20 100/67 93 11/08/18 00:00 75 11/07/18 23:27 36.8 C 77 16 105/68 97
[2018-11-08] MEDS: AMOXICILLIN/CLAVULANATE 875 MG TAB PO SCH (17:34)
--- NOTE | 2018-11-08 18:16 | Anesthesiology Progress Note ---
Date of Service November 08, 2018 Anesthesia Post Procedure Vital Signs Vital Signs: Temp Pulse Pulse Resp BP Pulse Ox 11/08/18 14:44 98.4 F 65 20 104/70 95 11/08/18 11:52 98.8 F 76 18 105/65 95 11/08/18 07:33 98.2 F 70 18 122/76 94 11/08/18 07:26 63 11/08/18 04:26 97.5 F L 62 20 100/67 93 11/08/18 00:00 75 11/07/18 23:27 98.2 F 77 16 105/68 97 11/07/18 19:19 98.4 F 85 18 115/69 90 Pain Intensity Bilateral Lower Back: Pain Intensity: 6 Left Abdomen: Pain Intensity: 8 Transfer of Care Handoff Completed per policy Notes Mental Status: alert / awake / arousable and participated in evaluation Patient Amnestic to Procedure: Yes Nausea / Vomiting: adequately controlled Pain: adequately controlled Airway Patency, RR, SpO2: stable & adequate BP & HR: stable & adequate Hydration State: stable & adequate Anesthetic Complications: no major complications apparent, see Notes below and Pt Satisfied with anesthetic care Notes: Pt was examined at bedside. Pt states having a sore throat and right sided lung pain. The patient has had stable vital signs. She denies fevers/chills or a productive cough. Outside of some abdominal discomfort, the patient was resting comfortably. The patient had diminished lung sounds, but no wheezes or rhonchi.
--- NOTE | 2018-11-08 18:51 | Hospitalist Progress Note ---
Date of Service November 08, 2018 Assessment & Plan (1) Abdominal pain: Abdominal pain improved: Appreciate input from GI Never had a colonoscopy in the past, per GI unsure if truly has underlying ulcerative colitis given patient is asymptomatic for most part of the year until this acute episode Possible viral gastroenteritis? Stool stool cultures/C. difficile -negative Unable to have a colonoscopy yesterday, as patient started to vomit with initiation of anesthetic drugs, No procedure was done, Was started antibiotic IV Zosyn for concern for aspiration Clinically improved, no cough, no fever or chills, chest x-ray shows no evidence of infiltrate, possible atelectasis Tolerating diet will Antibiotic changed to p.o. Augmentin complete 5 days course (2) Colitis: CT abdomen pelvis: 1. Extensive colonic wall thickening involving the sigmoid colon to the ascending colon. There is no significant pericolonic inflammatory change to suggest an advanced colitis: Most likely represents a mild infectious or inflammatory colitis. Inflammatory bowel disease not excluded GI symptom has improved Unable to have colonoscopy yesterday Per GI stable to be discharged home, outpatient follow-up in 3 to 4 weeks to reschedule diagnostic colonoscopy (3) Colitis with rectal bleeding: tolerating diet well, no complaint of abdominal pain, no nausea CT abdomen pelvis as outlined above No further episodes of GI bleed, H&H remained stable Outpatient colonoscopy in 3 to 4 weeks (4) Ulcerative colitis: No definitive diagnosis, Colonoscopy could not be done this admission Will need outpatient colonoscopy with biopsy to assess for inflammatory bowel disease Anticoagulation Xarelto resumed (5) Factor V Leiden: On Xarelto, (6) Chronic anticoagulation: On chronic anticoagulation, Xarelto resumed No further episode of GI bleeding, abdominal pain has resolved, H&H been stable Unable to have colonoscopy today No GI procedure scheduled this outpatient (7) Pulmonary embolism: Xarelto resumed (8) Recurrent deep vein thrombosis (DVT): On Xarelto CODE STATUS: Full code Disposition: Expected to be discharged home possible tomorrow if GI symptoms remain stable Subjective Is much better today, no complaint of abdominal pain, no diarrhea, cough is improved, no fever chills, tolerating diet well Physical Exam Constitutional: WD/WN, vitals as above well groomed, cooperative and comfortable; no acute distress Eyes: PERRL, conjunctivae normal, anicteric sclerae ENMT: external ear and nose normal, oropharynx normal Neck: trachea midline, no thyromegaly normal visual inspection Respiratory: normal respiratory effort, lungs clear to auscultation normal respiratory effort; no respiratory distress Auscultation: lungs clear to auscultation bilaterally and + wheezes (Mild increase auscultation); no crackles and no rhonchi Cardiovascular: RRR, no murmur, no edema Rate/Rhythm: regular rate and regular rhythm Vessels: normal peripheral pulses Gastrointestinal (Abdomen): Inspection/Auscultation: + abdomen distended, normal bowel sounds and + hypoactive bowel sounds Percussion/Palpation: abdomen soft Musculoskeletal: no cyanosis or clubbing, extremities motor strength 5/5 Skin: no rashes, warm and dry Neurologic: PERRL, EOMI, accommodation nl, no face palsy, no dysarthria Psychiatric: A+Ox3, euthymic affect Orientation: alert and oriented x 3 Results & Data Vital Signs (Past 12 Hours) Vital Signs Temp Pulse Pulse Resp BP Pulse Ox 11/08/18 14:44 36.9 C 65 20 104/70 95 11/08/18 11:52 37.1 C 76 18 105/65 95 11/08/18 07:33 36.8 C 70 18 122/76 94 11/08/18 07:26 63 (1) Pulmonary embolism Acute cor pulmonale presence: without acute cor pulmonale Chronicity: chronic Pulmonary embolism type: unspecified Qualified Code(s): I27.82 - Chronic pulmonary embolism (2) Abdominal pain Abdominal location: lower abdomen, unspecified Qualified Code(s): R10.30 - Lower abdominal pain, unspecified
[2018-11-09] MEDS: HYDROmorphone INJ 0.5 MG/0.5 ML SYR IV PRN ×7 (01:22→21:53)
[2018-11-09] MEDS: HEPARIN 100 UNIT/ML 5ML FLUSH IV PRN ×6 (01:24→21:53)
[2018-11-09] MEDS: GUAIFENESIN/DEXTROM SYRUP 200MG/20MG 10ML UDC PO PRN ×3 (01:27→20:40)
[2018-11-09 07:06] LABS: Creatinine Clr Calc Pharmacy 68.3 ml/min; Est GFR (African American) 80.2; Est GFR (Non-African American) 69.2
[2018-11-09] MEDS: RIVAROXABAN 15 MG TAB PO SCH ×2 (08:15→20:43)
[2018-11-09] MEDS: PROMETHAZINE HCL 12.5 MG in SODIUM CHLORIDE 0.9% 50 ML IV PRN (08:16)
[2018-11-09] MEDS: guaiFENesin 600 MG TABCR PO SCH ×2 (08:19→20:41)
[2018-11-09] MEDS: FLUOXETINE HCL 20 MG CAP PO SCH (08:23)
[2018-11-09] MEDS: PANTOprazole 40 MG TAB PO SCH (08:23)
[2018-11-09] MEDS: DICYCLOMINE HCL 10 MG CAP PO SCH ×3 (08:24→20:41)
[2018-11-09] MEDS: AMOXICILLIN/CLAVULANATE 875 MG TAB PO SCH ×2 (08:24→17:20)
[2018-11-09] MEDS: TOPIRAMATE 100 MG TAB PO SCH ×2 (08:24→20:42)
[2018-11-09] MEDS: DOCUSATE SODIUM 100 MG CAP PO SCH (08:26)
[2018-11-09] MEDS: LORazepam 0.5 MG TAB PO PRN (08:26)
--- NOTE | 2018-11-09 14:18 | Hospitalist Progress Note ---
Date of Service November 09, 2018 Assessment & Plan (1) Abdominal pain: Abdominal pain had resolved, tolerating diet, no episode of bloody bowel movement Never had a colonoscopy in the past, per GI unsure if truly has underlying ulcerative colitis given patient is asymptomatic for most part of the year until this acute episode Possible viral gastroenteritis-symptoms resolved spontaneously Stool stool cultures/C. difficile -negative Unable to have a colonoscopy yesterday, as patient started to vomit with initiation of anesthetic drugs, No procedure was done, Was started antibiotic IV Zosyn for concern for aspiration Clinically improved, no cough, no fever or chills, chest x-ray shows no evidence of infiltrate, possible atelectasis Tolerating diet will Antibiotic changed to p.o. Augmentin complete 5 days course Continues to complain of wheeze, sore throat, Ordered for albuterol inhaler as needed, added nebulizer treatment, Fever chills no hypoxia noted (2) Colitis: CT abdomen pelvis: 1. Extensive colonic wall thickening involving the sigmoid colon to the ascending colon. There is no significant pericolonic inflammatory change to suggest an advanced colitis: Most likely represents a mild infectious or inflammatory colitis. Inflammatory bowel disease not excluded GI symptom has improved Unable to have colonoscopy yesterday Per GI stable to be discharged home, outpatient follow-up in 3 to 4 weeks to reschedule diagnostic colonoscopy (3) Colitis with rectal bleeding: No further episode tolerating diet well, no complaint of abdominal pain, no nausea CT abdomen pelvis as outlined above No further episodes of GI bleed, H&H remained stable Outpatient colonoscopy in 3 to 4 weeks (4) Ulcerative colitis: No definitive diagnosis, Colonoscopy could not be done this admission Will need outpatient colonoscopy with biopsy to assess for inflammatory bowel disease Anticoagulation Xarelto resumed (5) Factor V Leiden: On Xarelto, (6) Chronic anticoagulation: On chronic anticoagulation, Xarelto resumed No further episode of GI bleeding, abdominal pain has resolved, H&H been stable Unable to have colonoscopy today No GI procedure scheduled this outpatient (7) Pulmonary embolism: Xarelto resumed (8) Recurrent deep vein thrombosis (DVT): On Xarelto CODE STATUS: Full code Disposition: Expected to be discharged home in next 1 to 2 days Subjective Continues to complain of wheezing, shortness of breath, thinks there is a rash on her bottom area, thinks due to shingles (had a shingles in past) no fever or chills, tolerating diet well No blood in stool, no complaint of abdominal pain no nausea Physical Exam Constitutional: WD/WN, vitals as above well groomed, cooperative and comfortable; no acute distress Eyes: PERRL, conjunctivae normal, anicteric sclerae ENMT: Mouth: no TMJ abnormality and no TMJ clicking Mallampati Class: II Neck: trachea midline, no thyromegaly normal visual inspection Respiratory: normal respiratory effort, lungs clear to auscultation normal respiratory effort; no respiratory distress Auscultation: lungs clear to auscultation bilaterally and + wheezes (Mild increase auscultation); no crackles and no rhonchi Cardiovascular: RRR, no murmur, no edema Rate/Rhythm: regular rate and regular rhythm Vessels: normal peripheral pulses Extremities: + pedal edema (+1) Gastrointestinal (Abdomen): Inspection/Auscultation: + abdomen distended, normal bowel sounds and + hypoactive bowel sounds Percussion/Palpation: abdomen soft Musculoskeletal: no cyanosis or clubbing, extremities motor strength 5/5 Skin: + rash (Small area of vesicular rash around right buttock area, no active drainage noted, patient reports of burning and itching) and + jaundice Neurologic: PERRL, EOMI, accommodation nl, no face palsy, no dysarthria Motor/Sensory: no asterixis Psychiatric: A+Ox3, euthymic affect Orientation: alert and oriented x 3 Lymphatic: no lymphedema Results & Data Vital Signs (Past 12 Hours) Vital Signs Temp Pulse Resp BP Pulse Ox 11/09/18 06:45 36.7 C 78 18 114/75 95 (1) Pulmonary embolism Acute cor pulmonale presence: without acute cor pulmonale Chronicity: chronic Pulmonary embolism type: unspecified Qualified Code(s): I27.82 - Chronic pulmonary embolism (2) Abdominal pain Abdominal location: lower abdomen, unspecified Qualified Code(s): R10.30 - Lower abdominal pain, unspecified
[2018-11-09] MEDS ORDERED: ALBUT/IPRATROP 3MG/0.5MG NEB 3 ML VIAL NEB PRN (18:18)
[2018-11-09] MEDS: LIDOCAINE 5% 1 PATCH TD SCH (18:58)
[2018-11-09] MEDS: ACYCLOVIR 400 MG TAB PO SCH (20:39)
[2018-11-09] MEDS: METOCLOPRAMIDE HCL INJ 5 MG/ML 2 ML VIAL IV PRN (20:50)
[2018-11-10] MEDS: HYDROmorphone INJ 0.5 MG/0.5 ML SYR IV PRN ×5 (00:55→19:06)
[2018-11-10] MEDS: HEPARIN 100 UNIT/ML 5ML FLUSH IV PRN ×3 (00:55→19:06)
[2018-11-10] MEDS: ACYCLOVIR 400 MG TAB PO SCH ×5 (05:23→20:42)
[2018-11-10] MEDS: LORazepam 0.5 MG TAB PO PRN (05:24)
[2018-11-10] MEDS: PANTOprazole 40 MG TAB PO SCH (08:33)
[2018-11-10] MEDS: TOPIRAMATE 100 MG TAB PO SCH ×2 (08:34→20:41)
[2018-11-10] MEDS: FLUOXETINE HCL 20 MG CAP PO SCH (08:34)
[2018-11-10] MEDS: guaiFENesin 600 MG TABCR PO SCH ×2 (08:34→20:42)
[2018-11-10] MEDS: AMOXICILLIN/CLAVULANATE 875 MG TAB PO SCH ×2 (08:34→16:43)
[2018-11-10] MEDS: RIVAROXABAN 15 MG TAB PO SCH ×2 (08:34→20:42)
[2018-11-10] MEDS: DICYCLOMINE HCL 10 MG CAP PO SCH ×3 (08:34→20:41)
[2018-11-10] MEDS: DOCUSATE SODIUM 100 MG CAP PO SCH (08:38)
[2018-11-10] MEDS: GUAIFENESIN/DEXTROM SYRUP 200MG/20MG 10ML UDC PO PRN (14:31)
[2018-11-10] MEDS: LIDOCAINE 5% 1 PATCH TD SCH (16:43)
[2018-11-10] MEDS: PROMETHAZINE HCL 12.5 MG in SODIUM CHLORIDE 0.9% 50 ML IV PRN (17:00)
--- NOTE | 2018-11-10 18:14 | Hospitalist Progress Note ---
Date of Service November 10, 2018 Assessment & Plan (1) Abdominal pain: Abdominal pain had resolved, tolerating diet, no episode of bloody bowel movement Never had a colonoscopy in the past, per GI unsure if truly has underlying ulcerative colitis given patient is asymptomatic for most part of the year until this acute episode Possible viral gastroenteritis-symptoms resolved spontaneously Stool stool cultures/C. difficile -negative Unable to have a colonoscopy yesterday, as patient started to vomit with initiation of anesthetic drugs, No procedure was done, Was started antibiotic IV Zosyn for concern for aspiration Clinically improved, no cough, no fever or chills, chest x-ray shows no evidence of infiltrate, possible atelectasis Tolerating diet will Antibiotic changed to p.o. Augmentin complete 5 days course Respiratory status improved, no fever chills, plan to discharge home tomorrow (2) Colitis: CT abdomen pelvis: 1. Extensive colonic wall thickening involving the sigmoid colon to the ascending colon. There is no significant pericolonic inflammatory change to suggest an advanced colitis: Most likely represents a mild infectious or inflammatory colitis. Inflammatory bowel disease not excluded GI symptom has improved Unable to have colonoscopy yesterday Per GI stable to be discharged home, outpatient follow-up in 3 to 4 weeks to reschedule diagnostic colonoscopy (3) Colitis with rectal bleeding: No further episode tolerating diet well, no complaint of abdominal pain, no nausea CT abdomen pelvis as outlined above No further episodes of GI bleed, H&H remained stable Outpatient colonoscopy in 3 to 4 weeks (4) Ulcerative colitis: No definitive diagnosis, Colonoscopy could not be done this admission Will need outpatient colonoscopy with biopsy to assess for inflammatory bowel disease Anticoagulation Xarelto resumed (5) Factor V Leiden: On Xarelto, (6) Chronic anticoagulation: On chronic anticoagulation, Xarelto resumed No further episode of GI bleeding, abdominal pain has resolved, H&H been stable Unable to have colonoscopy today No GI procedure scheduled this outpatient (7) Pulmonary embolism: Xarelto resumed (8) Recurrent deep vein thrombosis (DVT): On Xarelto CODE STATUS: Full code Disposition: Plan for discharge home tomorrow 11/11/2018 Subjective Cough sore throat shortness of breath has improved, No nausea, no fever chills Wants to be discharged home tomorrow Physical Exam Constitutional: WD/WN, vitals as above well groomed, cooperative and comfortable; no acute distress Eyes: PERRL, conjunctivae normal, anicteric sclerae ENMT: Mouth: no TMJ abnormality and no TMJ clicking Mallampati Class: II Neck: trachea midline, no thyromegaly normal visual inspection Respiratory: normal respiratory effort, lungs clear to auscultation normal respiratory effort; no respiratory distress Auscultation: lungs clear to auscultation bilaterally and + wheezes (Mild increase auscultation); no crackles and no rhonchi Cardiovascular: RRR, no murmur, no edema Rate/Rhythm: regular rate and regular rhythm Vessels: normal peripheral pulses Extremities: + pedal edema (+1) Gastrointestinal (Abdomen): Inspection/Auscultation: + abdomen distended, normal bowel sounds and + hypoactive bowel sounds Percussion/Palpation: abdomen soft Musculoskeletal: no cyanosis or clubbing, extremities motor strength 5/5 Skin: no rashes, warm and dry + rash (Small area of vesicular rash around right buttock area, no active drainage noted, patient reports of burning and itching) and + jaundice Neurologic: PERRL, EOMI, accommodation nl, no face palsy, no dysarthria Motor/Sensory: no asterixis Psychiatric: A+Ox3, euthymic affect Orientation: alert and oriented x 3 Lymphatic: no lymphedema Results & Data Vital Signs (Past 12 Hours) Vital Signs Temp Pulse Resp BP Pulse Ox 11/10/18 15:20 36.9 C 79 20 120/81 95 11/10/18 07:07 37.0 C 80 18 119/77 95 (1) Pulmonary embolism Acute cor pulmonale presence: without acute cor pulmonale Chronicity: chronic Pulmonary embolism type: unspecified Qualified Code(s): I27.82 - Chronic pulmonary embolism (2) Abdominal pain Abdominal location: lower abdomen, unspecified Qualified Code(s): R10.30 - Lower abdominal pain, unspecified
[2018-11-10] MEDS: KETOROLAC TROMETHAMINE 15 MG/ML VIAL IV PRN (20:45)
[2018-11-11] MEDS: HYDROmorphone INJ 0.5 MG/0.5 ML SYR IV PRN ×4 (00:02→19:50)
[2018-11-11] MEDS: HEPARIN 100 UNIT/ML 5ML FLUSH IV PRN ×3 (03:49→21:13)
[2018-11-11] MEDS: ACYCLOVIR 400 MG TAB PO SCH ×5 (06:03→18:44)
[2018-11-11 07:38] LABS: Creatinine Clr Calc Pharmacy 72.8 ml/min; Est GFR (African American) 86.5; Est GFR (Non-African American) 74.7
[2018-11-11] MEDS: DICYCLOMINE HCL 10 MG CAP PO SCH ×3 (08:10→19:55)
[2018-11-11] MEDS: AMOXICILLIN/CLAVULANATE 875 MG TAB PO SCH ×2 (08:10→16:25)
[2018-11-11] MEDS: DOCUSATE SODIUM 100 MG CAP PO SCH (08:10)
[2018-11-11] MEDS: guaiFENesin 600 MG TABCR PO SCH ×2 (08:11→19:55)
[2018-11-11] MEDS: TOPIRAMATE 100 MG TAB PO SCH ×2 (08:11→19:54)
[2018-11-11] MEDS: PANTOprazole 40 MG TAB PO SCH (08:11)
[2018-11-11] MEDS: FLUOXETINE HCL 20 MG CAP PO SCH (08:12)
[2018-11-11] MEDS: RIVAROXABAN 15 MG TAB PO SCH ×2 (08:13→19:53)
[2018-11-11] MEDS: PROMETHAZINE HCL 12.5 MG in SODIUM CHLORIDE 0.9% 50 ML IV PRN ×2 (11:47→20:54)
[2018-11-11] MEDS: HYDROCODONE/ACETAMOPHEN 5/325MG TAB PO PRN (17:47)
[2018-11-11] MEDS: LIDOCAINE 5% 1 PATCH TD SCH (18:44)
[2018-11-11] MEDS: LORazepam 0.5 MG TAB PO PRN (19:50)
--- NOTE | 2018-11-11 20:34 | Hospitalist Progress Note ---
Date of Service November 11, 2018 Assessment & Plan (1) Abdominal pain: Abdominal pain had resolved, tolerating diet, no episode of bloody bowel movement Never had a colonoscopy in the past, per GI unsure if truly has underlying ulcerative colitis given patient is asymptomatic for most part of the year until this acute episode Possible viral gastroenteritis-symptoms resolved spontaneously Stool stool cultures/C. difficile -negative Unable to have a colonoscopy y as patient started to vomit with initiation of anesthetic drugs, No procedure was done, Was treated empirically with antibiotic IV Zosyn for concern for aspiration Clinically improved, no cough, no fever or chills, chest x-ray shows no evidence of infiltrate, possible atelectasis Tolerating diet will Antibiotic changed to p.o. Augmentin complete 5 days course Respiratory status improved, no fever chills, stable to be discharged home today (2) Colitis: CT abdomen pelvis: 1. Extensive colonic wall thickening involving the sigmoid colon to the ascending colon. There is no significant pericolonic inflammatory change to suggest an advanced colitis: Most likely represents a mild infectious or inflammatory colitis. Inflammatory bowel disease not excluded GI symptom has improved Unable to have colonoscopy Per GI stable to be discharged home, outpatient follow-up in 3 to 4 weeks to reschedule diagnostic colonoscopy (3) Colitis with rectal bleeding: No further episode tolerating diet well, no complaint of abdominal pain, no nausea CT abdomen pelvis as outlined above No further episodes of GI bleed, H&H remained stable Outpatient colonoscopy in 3 to 4 weeks (4) Ulcerative colitis: No definitive diagnosis, Colonoscopy could not be done this admission Will need outpatient colonoscopy with biopsy to assess for inflammatory bowel disease Anticoagulation Xarelto resumed (5) Factor V Leiden: On Xarelto, (6) Chronic anticoagulation: On chronic anticoagulation, Xarelto resumed No further episode of GI bleeding, abdominal pain has resolved, H&H been stable Unable to have colonoscopy For outpatient GI follow-up and possible colonoscopy (7) Pulmonary embolism: Xarelto resumed (8) Recurrent deep vein thrombosis (DVT): On Xarelto CODE STATUS: Full code Disposition: Stable to be discharged home today Subjective No complaint of abdominal pain or nausea, cough has improved, no wheeze, no fever chills, feels comfortable to be discharged home today Physical Exam Constitutional: WD/WN, vitals as above well groomed, cooperative and comfortable; no acute distress Eyes: PERRL, conjunctivae normal, anicteric sclerae Neck: trachea midline, no thyromegaly Respiratory: normal respiratory effort, lungs clear to auscultation normal respiratory effort; no respiratory distress Cardiovascular: RRR, no murmur, no edema Rate/Rhythm: regular rate and regular rhythm Vessels: normal peripheral pulses Gastrointestinal (Abdomen): Inspection/Auscultation: + abdomen distended, normal bowel sounds and + hypoactive bowel sounds Percussion/Palpation: abdomen soft Musculoskeletal: no cyanosis or clubbing, extremities motor strength 5/5 Skin: no rashes, warm and dry + jaundice Neurologic: PERRL, EOMI, accommodation nl, no face palsy, no dysarthria Psychiatric: A+Ox3, euthymic affect Orientation: alert and oriented x 3 Results & Data Vital Signs (Past 12 Hours) Vital Signs Temp Pulse Resp BP Pulse Ox 11/11/18 20:23 37.0 C 95 H 18 111/74 95 11/11/18 15:00 36.9 C 77 20 107/70 96 (1) Abdominal pain Abdominal location: lower abdomen, unspecified Qualified Code(s): R10.30 - Lower abdominal pain, unspecified (2) Pulmonary embolism Pulmonary embolism type: unspecified Chronicity: chronic Acute cor pulmonale presence: without acute cor pulmonale Qualified Code(s): I27.82 - Chronic pulmonary embolism
--- NOTE | 2018-11-11 20:34 | Discharge Summary ---
Date of Service November 11, 2018 Admission HPI Per Admitting Provider 48-year-old female who presents the ED with abdominal pain, abdominal bloating, nausea, vomiting, diarrhea, bright red bleeding per rectum. Patient was recently admitted to [facility] 10/25 through 10/28 for right upper extremity DVT and pulmonary embolism. Patient has history of factor V Leiden and history of recurrent DVT/PE. During previous admission, patient's Coumadin was stopped and she was placed on Xarelto as an alternative therapy. Patient reports that today, she developed abdominal cramping with bloating. She reports abdominal pain is located in the right lower and left lower quadrants with radiation to the back. She subsequently developed diarrhea and bright red bleeding per rectum. She reports nausea and a few episodes of vomiting. She denies hematemesis or coffee-ground emesis. She reports feeling generally weak and some mild lightheadedness. No dizziness, syncopal event, diaphoresis. She denies chest pain and shortness of breath. No fevers or chills. She denies any urinary symptoms. In the ED, patient is hemodynamically stable and hemoglobin is found to be 16.0. CT ABD/pelvis shows colitis involving the sigmoid and ascending colon. She was given IVF, IV Zofran, IV Dilaudid. Principal Diagnosis Abdominal pain/nausea/colitis/pneumonia Discharge Exam Constitutional WD/WN, vitals as above well groomed, cooperative and comfortable; no acute distress Eyes PERRL, conjunctivae normal, anicteric sclerae ENMT external ear and nose normal, oropharynx normal Mouth: no TMJ abnormality and no TMJ clicking Mallampati Class: II Neck trachea midline, no thyromegaly normal visual inspection Respiratory normal respiratory effort, lungs clear to auscultation normal respiratory effort; no respiratory distress Auscultation: lungs clear to auscultation bilaterally and + wheezes (Mild increase auscultation); no crackles and no rhonchi Cardiovascular RRR, no murmur, no edema Rate/Rhythm: regular rate and regular rhythm Vessels: normal peripheral pulses Extremities: + pedal edema (+1) Gastrointestinal (Abdomen) Inspection/Auscultation: + abdomen distended, normal bowel sounds and + hypoactive bowel sounds Percussion/Palpation: abdomen soft Musculoskeletal no cyanosis or clubbing, extremities motor strength 5/5 Skin no rashes, warm and dry + jaundice Neurologic PERRL, EOMI, accommodation nl, no face palsy, no dysarthria Motor/Sensory: no asterixis Psychiatric A+Ox3, euthymic affect Orientation: alert and oriented x 3 Lymphatic no lymphedema Discharge Data Allergies Allergy/AdvReac Type Severity Reaction Status Date / Time kiwi Allergy Severe ANAPHYLAXIS Verified 11/07/18 17:09 metronidazole Allergy Intermediate hives Verified 10/25/18 19:02 morphine Allergy Intermediate chest Verified 10/25/18 19:02 pain; trouble breathing tree nut Allergy Anaphylaxis Verified 10/25/18 19:02 prochlorperazine AdvReac Unknown SEVERE Verified 11/07/18 17:09 DYSTONIA Consultations 11/04/18 21:22 ED Decision to Admit Stat 11/04/18 22:31 Consult Gastroenterology Routine Procedures Performed Operation Date: 11/07/18 08:30 Actual Procedures p Colonoscopy - Brando Chao Ordered Studies 11/04/18 17:49 CT abd pelvis IV con only Stat Hospital Course (1) Abdominal pain: Abdominal pain had resolved, tolerating diet, no episode of bloody bowel movement Never had a colonoscopy in the past, per GI unsure if truly has underlying ulcerative colitis given patient is asymptomatic for most part of the year until this acute episode Possible viral gastroenteritis-symptoms resolved spontaneously Stool stool cultures/C. difficile -negative Unable to have a colonoscopy y as patient started to vomit with initiation of anesthetic drugs, No procedure was done, Was treated empirically with antibiotic IV Zosyn for concern for aspiration Clinically improved, no cough, no fever or chills, chest x-ray shows no evidence of infiltrate, possible atelectasis Tolerating diet will Antibiotic changed to p.o. Augmentin complete 5 days course Respiratory status improved, no fever chills, stable to be discharged home today (2) Colitis: CT abdomen pelvis: 1. Extensive colonic wall thickening involving the sigmoid colon to the ascending colon. There is no significant pericolonic inflammatory change to suggest an advanced colitis: Most likely represents a mild infectious or inflammatory colitis. Inflammatory bowel disease not excluded GI symptom has improved Unable to have colonoscopy Per GI stable to be discharged home, outpatient follow-up in 3 to 4 weeks to reschedule diagnostic colonoscopy (3) Colitis with rectal bleeding: No further episode tolerating diet well, no complaint of abdominal pain, no nausea CT abdomen pelvis as outlined above No further episodes of GI bleed, H&H remained stable Outpatient colonoscopy in 3 to 4 weeks (4) Ulcerative colitis: No definitive diagnosis, Colonoscopy could not be done this admission Will need outpatient colonoscopy with biopsy to assess for inflammatory bowel disease Anticoagulation Xarelto resumed (5) Factor V Leiden: On Xarelto, (6) Chronic anticoagulation: On chronic anticoagulation, Xarelto resumed No further episode of GI bleeding, abdominal pain has resolved, H&H been stable Unable to have colonoscopy For outpatient GI follow-up and possible colonoscopy (7) Pulmonary embolism: Xarelto resumed (8) Recurrent deep vein thrombosis (DVT): On Xarelto CODE STATUS: Full code Disposition: Stable to be discharged home today Total Time Total Time Spent Total Time Spent (In Minutes): Approximately 45 minutes Total Time Includes: Examination of the Patient, Discharge Planning and Medic ation Reconciliation Discharge Plan Discharge Items Patient Disposition: Home - Self-Care Reason For Visit: LGIB Discharge Diagnosis: ABDOMINAL PAIN /COLITIS Discharge Goals: Decrease discomfort, Diagnostic testing and Therapeutic intervention Activity: Resume your previous activity Non-emergency contact: Primary Care Provider Call non-emergency contact if: you have any medication questions Follow-up/Referrals: Rula Turpin MD [Primary Care Provider] - Angeles Hernandez [Nurse Practitioner] - (IN 3-4 WEEKS ) Diet: Low Fiber Addtl Provider Instructions: Follow-up with gastroenterology in clinic for colonoscopy in 3 to 4 weeks Hospital follow-up with family physician: Dr. Rula Turpin in a week office will call with appointment Prescriptions: New amoxicillin-pot clavulanate 875-125 mg Tablet 1 tab PO BIDM 5 Days Qty: 10 RF: 0 dicyclomine 10 mg Capsule 10 mg PO TID PRN (Reason: muscle spasm) Qty: 90 RF: 0 promethazine 12.5 mg tablet 12.5 mg PO Q6H PRN (Reason: nausea) Qty: 60 RF: 0 Continued sumatriptan succinate 50 mg tablet 50 mg PO UD PRN (Reason: Migraine Headache) RF: 0 lorazepam 0.5 mg tablet 0.5 mg PO TID PRN (Reason: Anxiety) RF: 0 topiramate 200 mg tablet 200 mg PO BID RF: 0 albuterol sulfate 90 mcg/actuation Hfa Aerosol Inhaler 2 puff INHALATION QID PRN (Reason: Shortness Of Breath Or Wheezing) RF: 0 pantoprazole 40 mg tablet,delayed release (DR/EC) 40 mg PO DAILY RF: 0 ranitidine HCl 150 mg tablet 150 mg PO BID RF: 0 ondansetron HCl [Zofran] 4 mg tablet 4 mg PO Q6 PRN (Reason: nausea and vomiting) Qty: 6 RF: 0 meclizine 25 mg tablet 25 mg PO TID PRN (Reason: Dizziness) RF: 0 fluoxetine 40 mg capsule 40 mg PO DAILY RF: 0 hydrocodone-acetaminophen [Hamer] 5-325 mg Tablet 1 tab PO QID PRN (Reason: pain) Qty: 30 RF: 0 Xarelto 15 mg tablet 15 mg PO RF: 0 Stand-Alone Forms: Call Back Authorization, [facility] Discharge Orders: Discharge Order (Routine); Ordered 11/11/18 Ordered By: Charlette Barrera Admission Data Admit Date/Time: 11/04/18 22:31 Attending Provider: Charlette Barrera Admit Provider: Danilo Nina Primary Care Provider: Rula Turpin Other Providers: Danilo Nina ; Kavin Simeon ; Elva Jurado ; Latoya Purvis Service: Medical Other Interventions: Discharge Summary Assessment (RN) Last Done: 11/08/18 09:11
[2018-11-11] MEDS: GUAIFENESIN/DEXTROM SYRUP 200MG/20MG 10ML UDC PO PRN (20:37)
--- NOTE | 2018-11-15 09:52 | Coding Query ---
CODING QUERY To promote full compliance with coding requirements relating to patient care, provider participation is requested in all cases of hims coder uncertainty. Please assist us with the question(s) below: Coding Question(s): Please clarify the Pneumonia, first documented on the Colonoscopy report and through Discharge Summary. ( ) Aspiration Pneumonia, Unspecified ( x ) Aspiration Pneumonia, Postprocedural or Aspiration Pneumonitis due to Anesthesia ( ) Pneumonia, Other: Please Specify ( ) Pneumonia Unspecified Physician's Response(s): Thank you Nohemi Ortiz Principal Diagnosis: "that condition established after study, to be chiefly responsible for occasioning the admission of the patient to the hospital for care." Co-Existing Principal Diagnosis: "when two or more diagnoses equally meet the criteria for principal diagnosis as determined by the circumstances of admission, diagnostic work up, and/or therapy provided, and the Alphabetic Index, Tabular List, or another coding guideline does not provide sequencing direction, any one of the diagnoses may be sequenced first." "When the physician has documented what appears to be a current diagnosis in the body of the record, but has not included the diagnosis in the final diagnostic statement, the physician should be asked whether the diagnosis should be added." (Source Coding [facility] 2 QTR90. p3-4) RAFIQ
== END 2018-11-11 21:45 | disposition home or self-care (01) | DRG 386 ==
LOC: ED 17:35 → 4W 22:31 → 2N 11-07 14:45

== ENCOUNTER 2021-04-05 14:37 | Inpatient (IN) ==
[2021-04-05 15:20] LABS: Basophils # (auto) 0.03 K/uL (0-0.2); Basophils % (auto) 0.3 %; Eosinophils # (auto) 0.22 K/uL (0-0.5); Eosinophils % (auto) 2.3 %; Hematocrit (blood only) 46.8 % (37-47); Hemoglobin 16.9 g/dL (12.0-16.0); Immature Granulocytes # (auto) 0.05 K/uL (0.00-0.02); Immature Granulocytes % (auto) 0.5 %; Lymphocytes # (auto) 3.12 K/uL (1.2-3.4); Mean Corpuscular Hemoglobin 34.8 pg (25-34); Mean Corpuscular Hgb Conc 36.1 g/dL (32-36); Mean Corpuscular Volume 96.3 fL (80-100); Mean Platelet Volume 10.6 fL (7.4-10.4); Monocytes # (auto) 0.99 K/uL (0.11-0.59); Monocytes % (auto) 10.2 %; Neutrophils # (auto) 5.34 K/uL (1.4-6.5); Neutrophils % (auto) 54.7 %; Platelet Count 185 K/uL (130-400); RDW Coefficient of Variation 12.5 % (11.5-14.5); RDW Standard Deviation 43.6 fL (36.4-46.3); Red Blood Count 4.86 M/uL (4.2-5.4); White Blood Count 9.75 K/uL (4.8-10.8)
[2021-04-05 15:38] LABS: Albumin Level 3.6 gm/dl (3.4-5.0); BUN Creatinine Ratio 14.5 (10-20); Calcium 8.8 mg/dl (8.5-10.1); Creatinine Clr Calc Pharmacy 59.3 ml/min; Est GFR (African American) 64.5 ml/min; Est GFR (Non-African American) 55.6 ml/min; Potassium 3.4 mmol/L (3.5-5.1)
[2021-04-05 15:41] LABS: Albumin Globulin Ratio 0.9 (0.9-2); Bilirubin,Total 0.3 mg/dl (0.2-1); Globulin 4.1 gm/dl (2.5-4.0); Total Protein 7.7 gm/dl (6.4-8.2)
[2021-04-05] MEDS ORDERED: SODIUM CHLORIDE 0.9% 1000ML 1,000 ML IV STA (16:08)
[2021-04-05] MEDS ORDERED: ONDANSETRON INJ 2 MG/ML 2 ML VIAL IV STA ×2 (16:11→16:14)
--- NOTE | 2021-04-05 16:21 | Emergency Department Note ---
Impression & Plan Hydronephrosis with urinary obstruction due to ureteral calculus, Acute left flank pain ED Provider Note NAME: DEVIN SIFUENTES AGE: 50 SEX: F : 1970 ARRIVES VIA: Walk-In INFORMANT: Patient, ED PROVIDER(S): Richi Kaplan DO CHIEF COMPLAINT: Flank pain HPI: The patient is a 50-year-old female who presented to the emergency department for an evaluation of flank pain. The patient describes left-sided flank pain which began over the last 48 hours. She states pain became acutely worse and she presented to the emergency department. The patient has had nausea. She denies having any black or bloody bowel movements. She has been trying medication at home without relief. The patient states that she has a history of kidney stones in the past. She is required stenting as well as lithotripsy. The patient states that she did not see her primary urologist because of the degree of pain she presented to the emergency department. The patient states the pain is moderate to severe. She does complain of left-sided flank pain as well as left upper quadrant pain. She does take blood thinners for history of factor V Leiden as well as DVT. She states otherwise she has been compliant with all of her outpatient medications. ROS: See above HPI for pertinent positives & negatives. A total of 10 systems reviewed and were otherwise negative. PAST MEDICAL HISTORY: See Below PAST SURGICAL HISTORY: See Below FAMILY HISTORY: See Below SOCIAL HISTORY: See Below HOME MEDICATIONS: See Below ALLERGIES: See Below VITALS: See Below PHYSICAL EXAMINATION: GENERAL: The patient is awake and alert. The patient is very anxious appearing and appears to be in significant pain. EYES: The conjunctivae are clear. The pupils are round and reactive. EARS, NOSE, MOUTH AND THROAT: The nose is without any evidence of any deformity. NECK: The neck is nontender and supple. RESPIRATORY: Normal respiratory effort is noted there is no evidence of wheezing rhonchi or rales CARDIOVASCULAR: Regular rate and rhythm noted there no murmurs rubs or gallops normal S1 normal S2. GASTROINTESTINAL: The abdomen is soft and mildly distended. There is left upper quadrant tenderness to palpation. BACK: Left CVA tenderness was noted to percussion. Range of motion appears intact. MUSCULOSKELETAL/EXTREMITIES: There is no evidence of gross deformity full range of motion is noted in the hips and shoulders. SKIN: There is no obvious evidence of any rash. There are no petechiae, pallor or cyanosis noted. NEUROLOGIC: Patient is awake alert and oriented x3 MEDICAL DECISION MAKING: The patient is a 50-year-old female who presented to the emergency department for an evaluation of flank pain. The patient had very severe flank pain on my evaluation. The patient was treated with IV fluids and IV pain medication. She was reevaluated multiple times. I discussed the patient's laboratory and radiographic studies with her. She was found to have an obstructing left u reteral calculus which was very large. She is required stenting in the past. Given the patient's pain level I do not feel she would be a good candidate for outpatient management. I discussed her case with the on-call [facility] hospitalist group. They have agreed to evaluate the patient in the emergency department for further management and disposition. Triage Nursing notes reviewed. Prior medical records reviewed Vital Signs: reviewed and remarkable for no significant abnormalities Differential diagnosis: Renal colic, UTI, appendicitis, diverticulitis, mesenteric ischemia, aortic pathology, infections, inflammatory bowel disease, PUD, biliary pathology, as well as other pathologies. ER treatment provided: See below Diagnostics interpreted by me: ECG: none Cardiac Monitoring: An order was placed for continuous cardiac monitoring. The monitor shows a rate of 76 bpm with sinus rhythm. Laboratory studies: As stated above and show below. Imaging studies: See below Consultation(s): I discussed this case with Gisela who was on for the [facility]ist group. Past Med/Surg History Medical History (Updated 04/05/21 @ 23:03 by Richi Kaplan DO) Asthma Not using inhaler on a regular basis. Denies having any h/o hospitalization or intubation due to asthma Chronic anticoagulation Depression Factor V Leiden PTSD (post-traumatic stress disorder) Recurrent deep vein thrombosis (DVT) Seizure disorder Last episode about 10 years ago. 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 Controlled with topamax. Suicidal ideation Tobacco use Ulcerative colitis Surgical History H/O tubal ligation History of cholecystectomy Hx of tonsillectomy S/P ureteral stent placement 2017 Family History Mother Dyslipidemia Social History Smoking Status: Current some day smoker Tobacco Type: Cigarettes Second Hand Exposure: No; Do You Dip or Chew Tobacco: No; Tobacco Cessation Education Requested by Patient: No Hx Alcohol Use: No Hx Substance Use: No Preferred Language: Andorran Communication Ability: Effective Platform Power Technician Required: No Beliefs That Will Affect Care: None marital status: Current Living Situation: Spouse and Family current occupational status: employed Other Information That Helps Us Care for You: No Feels Safe at Home: Yes Safety Concerns: Feels Safe At This Time Assistive Devices: None Allergies Allergies Allergy/AdvReac Type Severity Reaction Status Date / Time kiwi Allergy Severe ANAPHYLAXIS Verified 04/05/21 17:16 metronidazole Allergy Intermediate hives Verified 04/05/21 17:16 morphine Allergy Intermediate chest Verified 04/05/21 17:16 pain; trouble breathing tree nut Allergy Anaphylaxis Verified 04/05/21 17:16 prochlorperazine AdvReac Unknown SEVERE Verified 04/05/21 17:16 DYSTONIA Home Meds Home Medications Medication Instructions Recorded Confirmed albuterol sulfate 90 mcg/actuation 2 puff INHALATION QID PRN 06/02/18 04/05/21 aerosol inhaler lorazepam 0.5 mg tablet 0.5 mg PO TID PRN 06/02/18 04/05/21 sumatriptan succinate 50 mg tablet 50 mg PO UD PRN 06/02/18 04/05/21 topiramate 200 mg tablet 200 mg PO BID 06/02/18 04/05/21 fluoxetine 40 mg capsule 40 mg PO QAM 10/25/18 04/05/21 rivaroxaban 15 mg tablet (Xarelto) 15 mg PO DAILY 11/07/18 04/05/21 docusate sodium 100 mg tablet 100 mg PO BID PRN 08/10/19 04/05/21 lactobacillus combination no.4 3 0 mmu cells PO QAM 08/10/19 04/05/21 billion cell capsule (Probiotic) trazodone 50 mg tablet 50 mg PO HS PRN 08/10/19 04/05/21 bupropion HCl 150 mg tablet,12 hr 150 mg PO HS 04/05/21 04/05/21 sustained-release (Wellbutrin SR) dicyclomine 20 mg tablet 20 mg PO TID PRN 04/05/21 04/05/21 hydrocodone 5 mg-acetaminophen 325 1 tab PO Q6H PRN 04/05/21 04/05/21 mg tablet vortioxetine 5 mg tablet 5 mg PO DAILY 04/05/21 04/05/21 (Trintellix) Previous Rx's Medication Instructions Recorded ondansetron HCl 4 mg tablet 4 mg PO Q6H PRN #20 tab 08/10/19 (Zofran) pantoprazole 40 mg tablet,delayed 40 mg PO DAILY #30 tab 08/10/19 release Results & Data (ED) Vital Signs Vital Signs - 24 hr 04/05/21 14:40 04/05/21 16:48 04/05/21 16:55 Temperature 36.5 C Temperature Source Temporal Artery Scan Pulse Rate 115 H 70 Pulse Rate [Right Finger] 73 Pulse Rate from SpO2 Sensor Pulse Rhythm [Right Finger] Regular Pulse Strength [Right Finger] Normal Respiratory Rate 16 18 16 Respiratory Effort / Characteristics Non-Labored Non-Labored Respiratory Depth Normal Normal Blood Pressure 133/98 Blood Pressure [Right Arm] 128/73 Blood Pressure Mean 109 Blood Pressure Mean [Right Arm] 91 Blood Pressure Position [Right Arm] Sitting Pulse Oximetry 97 98 Oxygen Delivery Method Room Air Room Air Sepsis Recent Fever Within 48 Hours No Sepsis New/Unexplained Change in Mental Status No Sepsis Action Taken by Nursing No Action Required 04/05/21 17:00 04/05/21 17:30 Temperature Temperature Source Pulse Rate 77 83 Pulse Rate [Right Finger] Pulse Rate from SpO2 Sensor 82 Pulse Rhythm [Right Finger] Pulse Strength [Right Finger] Respiratory Rate 19 22 Respiratory Effort / Characteristics Respiratory Depth Blood Pressure 124/101 H Blood Pressure [Right Arm] Blood Pressure Mean 108 Blood Pressure Mean [Right Arm] Blood Pressure Position [Right Arm] Pulse Oximetry 93 Oxygen Delivery Method Sepsis Recent Fever Within 48 Hours Sepsis New/Unexplained Change in Mental Status Sepsis Action Taken by Residential Medications Current Medication List: was personally reviewed by me Laboratory Data Attestation: I reviewed the patient's lab results. Result diagrams: 04/05/21 Unknown 04/05/21 Unknown Lab Results 04/05/21 04/05/21 Range/Units 15:05 15:05 PT 10.1 (9.0-12.0) Seconds INR 1.0 (0.9-1.1) APTT 22.2 (21.0-31.0) Seconds PTT Ratio 0.8 HCG, Qual Negative (Negative) Administered Medications Bupropion HCl (Bupropion Sr 150 Mg Tabcr) 150 mg PO HS VINAYAK Stop: 05/05/21 20:59 Last Admin: 04/05/21 22:34 Dose: Not Given Documented by: [id number] Hydromorphone HCl (Hydromorphone Inj 0.5 Mg/0.5 Ml Syr) 0.5 mg IV Q4H PRN PRN Reason: Pain Stop: 04/19/21 20:49 Last Admin: 04/05/21 21:11 Dose: 0.5 mg Documented by: [id number] Sodium Chloride (Nss 1000ml) 1,000 mls @ 150 mls/hr IV .Q6H40M VINAYAK Stop: 04/06/21 09:27 Last Admin: 04/05/21 21:05 Dose: 150 mls/hr Documented by: [id number] Lorazepam (Lorazepam 0.5 Mg Tab) 0.5 mg PO TID PRN PRN Reason: Anxiety Stop: 05/05/21 20:49 Last Admin: 04/05/21 22:37 Dose: 0.5 mg Documented by: [id number] Topiramate (Topiramate 100 Mg Tab) 200 mg PO BID VINAYAK Stop: 05/05/21 20:59 Last Admin: 04/05/21 22:34 Dose: 200 mg Documented by: [id number] Discontinued Medications Hydromorphone HCl (Hydromorphone Inj 1 Mg/Ml Syringe) 1 mg IV Q15M PRN PRN Reason: Pain Stop: 04/19/21 16:13 Last Admin: 04/05/21 17:13 Dose: 1 mg Documented by: [id number] Admin: 04/05/21 16:27 Dose: 1 mg Documented by: [id number] Hydromorphone HCl (Hydromorphone Inj 0.5 Mg/0.5 Ml Syr) 0.5 mg IV NOW STA Stop: 04/05/21 18:26 Last Admin: 04/05/21 18:38 Dose: 0.5 mg Documented by: [id number] Hydromorphone HCl (Hydromorphone Inj 1 Mg/Ml Syringe) 1 mg IV NOW STA Stop: 04/05/21 20:09 Last Admin: 04/05/21 20:26 Dose: 1 mg Documented by: [id number] Sodium Chloride (Nss 1000ml) 1,000 mls @ 999 mls/hr IV .Q1H1M STA Stop: 04/05/21 17:08 Last Infusion: 04/05/21 17:27 Dose: 999 mls/hr Documented by: [id number] Admin: 04/05/21 16:26 Dose: 999 mls/hr Documented by: [id number] Ketorolac Tromethamine (Ketorolac Tromethamine 15 Mg/Ml Vial) 15 mg IV NOW STA Stop: 04/05/21 20:09 Last Admin: 04/05/21 20:25 Dose: 15 mg Documented by: [id number] Ondansetron HCl (Ondansetron Inj 2 Mg/Ml 2 Ml Vial) 4 mg IV NOW STA Stop: 04/05/21 16:12 Last Admin: 04/05/21 16:27 Dose: 4 mg Documented by: [id number] Ondansetron HCl (Ondansetron Inj 2 Mg/Ml 2 Ml Vial) 4 mg IV NOW STA Stop: 04/05/21 16:15 Last Admin: 04/05/21 20:31 Dose: 4 mg Documented by: [id number] Ondansetron HCl (Ondansetron Inj 2 Mg/Ml 2 Ml Vial) Confirm Administered Dose 4 mg .ROUTE .STK-MED ONE Stop: 04/05/21 20:29 Last Admin: 04/05/21 22:18 Dose: Not Given Documented by: [id number] Oxycodone HCl (Oxycodone Hcl Ir 5 Mg Tab (Immediate Release)) 5 mg PO NOW STA Stop: 04/05/21 20:09 Last Admin: 04/05/21 20:25 Dose: 5 mg Documented by: [id number] Phenazopyridine HCl (Phenazopyridine Hcl 200 Mg Tab) 200 mg PO NOW STA Stop: 04/05/21 20:12 Last Admin: 04/05/21 20:24 Dose: 200 mg Documented by: [id number] Tamsulosin HCl (Tamsulosin Hcl 0.4 Mg Cap) 0.4 mg PO NOW ONE Stop: 04/05/21 17:40 Last Admin: 04/05/21 18:00 Dose: 0.4 mg Documented by: [id number] Imaging Data Radiologist's Impression: Abdomen/Pelvis CT 04/05/21 16:[address] WITHOUT CONTRAST CT DOSE: 519.95 mGy.cm HISTORY: Acute severe left-sided flank pain flank pain TECHNIQUE: Multiaxial CT images of the abdomen and pelvis were performed without contrast. A dose lowering technique was utilized adhering to the principles of ALARA. COMPARISON STUDY: CT abdomen and pelvis 08/10/2019, CTA chest 10/26/2018. FINDINGS: Clear lung bases. 5 mm fissural nodule of the right lung base on image 11 series 3 is unchanged from the 2019 comparison suggestive of a benign lymph node. No pneumatosis or pneumoperitoneum. The imaged inferior cardiac chambers are unremarkable. The unenhanced spleen, pancreas and adrenal glands are unremar kable. Cholecystectomy. Hepatic steatosis. Mild left-sided hydroureteronephrosis secondary to an obstructing bilobed 6 x 5 x 7 mm calculus of the left ureter at the level of L3-L4. Minimal perinephric and periureteral inflammatory stranding. Unremarkable right kidney, urinary bladder, uterus and adnexa. Inguinal chain lymph nodes measuring up to 9 mm are likely reactive. Aorta and IVC are unremarkable. No bowel obstruction or bowel wall thickening. No ascites or mesenteric inflammation. Colonic diverticulosis without acute diverticulitis. Normal appendix. Diastases recti with tiny fat filled periumbilical hernia. There is no acute fracture. IMPRESSION: 1. Mild left-sided hydroureteronephrosis secondary to an obstructing 7 mm calculus of the left ureter at the level of L3-L4. 2. No bowel obstruction or bowel wall thickening. 3. Hepatic steatosis. 4. Colonic diverticulosis. ACT 112: Negative or not required by law. The above report was generated using voice recognition software. It may contain grammatical, syntax or spelling errors. Electronically signed by: Angelo Valdez M.D. 04/05/2021 5:03 PM Discharge Plan Visit Data Chief Complaint: Abdominal Pain Stated Complaint: LLQ ABD PAIN, LOSS STOOLS ED Provider: Richi Kaplan ED Midlevel Provider: Yoni Wei Discharge Problem: Hydronephrosis with urinary obstruction due to ureteral calculus, Acute left flank pain Patient Disposition: Admitted As Inpatient Discharge Instructions Interventions: ED Discharge Assessment Last Done: 04/05/21 20:32
[2021-04-05] MEDS: HYDROmorphone INJ 1 MG/ML SYRINGE IV PRN ×2 (16:27→17:13)
--- NOTE | 2021-04-05 17:04 | CT Scan Report ---
ABDOMEN AND PELVIS CT WITHOUT CONTRAST CT DOSE: 519.95 mGy.cm HISTORY: Acute severe left-sided flank pain flank pain TECHNIQUE: Multiaxial CT images of the abdomen and pelvis were performed without contrast. A dose lo wering technique was utilized adhering to the principles of ALARA. COMPARISON STUDY: CT abdomen and pelvis 08/10/2019, CTA chest 10/26/2018. FINDINGS: Clear lung bases. 5 mm fissural nodule of the right lung base on image 11 series 3 is uncha nged from the 2019 comparison suggestive of a benign lymph node. No pneumatosis or pneumoperitoneum. The imaged inferior cardiac chambers are unremarkable. The unenhanced spleen, pancreas and adrenal gl ands are unremarkable. Cholecystectomy. Hepatic steatosis. Mild left-sided hydroureteronephrosis secondary to an obstructing bilobed 6 x 5 x 7 mm calculus of th e left ureter at the level of L3-L4. Minimal perinephric and periureteral inflammatory stranding. Unr emarkable right kidney, urinary bladder, uterus and adnexa. Inguinal chain lymph nodes measuring up t o 9 mm are likely reactive. Aorta and IVC are unremarkable. No bowel obstruction or bowel wall thicke javier. No ascites or mesenteric inflammation. Colonic diverticulosis without acute diverticulitis. Nor mal appendix. Diastases recti with tiny fat filled periumbilical hernia. There is no acute fracture. IMPRESSION: 1. Mild left-sided hydroureteronephrosis secondary to an obstructing 7 mm calculus of the left ureter at the level of L3-L4. 2. No bowel obstruction or bowel wall thickening. 3. Hepatic steatosis. 4. Colonic diverticulosis. ACT 112: Negative or not required by law. The above report was generated using voice recognition software. It may contain grammatical, syntax o r spelling errors. Electronically signed by: Angelo Valdez M.D. 04/05/2021 5:03 PM
[2021-04-05] MEDS ORDERED: TAMSULOSIN HCL 0.4 MG CAP PO ONE (17:39)
--- NOTE | 2021-04-05 17:47 | History & Physical Report ---
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 VSS, afebrile, no leukocytosis CT abd/pelvis with mild left-sided hydroureteronephrosis secondary to an obstructing 7 mm calculus of the left ureter at the level of L3-L4 Case discussed with Dr. Rothman of urology, who plans for intervention tomorrow NPO after midnight Analgesics with home [place], PRN IV Dilaudid for severe pain, antiemetics, IV fluids, Flomax (2) Recurrent deep vein thrombosis (DVT): Plan: H/o Factor V Leiden, on chronic anticoagulation with Xarelto Per Dr. Rothman, patient okay to continue Xarelto (3) Seizure disorder: Plan: No seizure history in ten years. Continue Topamax (4) Depression: Plan: Continue bupropion, fluoxetine (5) Anxiety: Plan: Continue fluoxetine, Ativan PRN (6) Tobacco use: Plan: Cessation education. Offered nicotine patch DVT Ppx: Xarelto Code status: FULL PCP: [facility] Dispo: Admitted to med/surg Patient seen in collaboration with Dr. Man. Please see addendum. 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 Patient awoke with pain in left lower back that was worse after movement and showering. Pain then radiated around left flank and into the left suprapubic area. Patient endorses nausea but denies any vomiting. Poor appetite. History of recurrent kidney stones requiring intervention, most recently by Dr. Thompson of [facility]. Patient is on Xarelto for history of multiple DVTs in setting of clotting disorder. Denies any fever, chills, head ache, lightheadedness, chest pain, shortness of breath, dysuria, diarrhea or constipation. Seizure disorder controlled on Topamax, denies any seizures for the past 10 years. Allergies Allergy/AdvReac Type Severity Reaction Status Date / Time kiwi Allergy Severe ANAPHYLAXIS Verified 04/05/21 17:16 metronidazole Allergy Intermediate hives Verified 04/05/21 17:16 morphine Allergy Intermediate chest Verified 04/05/21 17:16 pain; trouble breathing tree nut Allergy Anaphylaxis Verified 04/05/21 17:16 prochlorperazine AdvReac Unknown SEVERE Verified 04/05/21 17:16 DYSTONIA Home Medications Medication Instructions Recorded Confirmed Type albuterol sulfate 90 mcg/actuation 2 puff INHALATION QID PRN 06/02/18 04/05/21 History aerosol inhaler lorazepam 0.5 mg tablet 0.5 mg PO TID PRN 06/02/18 04/05/21 History sumatriptan succinate 50 mg tablet 50 mg PO UD PRN 06/02/18 04/05/21 History topiramate 200 mg tablet 200 mg PO BID 06/02/18 04/05/21 History fluoxetine 40 mg capsule 40 mg PO QAM 10/25/18 04/05/21 History rivaroxaban 15 mg tablet (Xarelto) 15 mg PO DAILY 11/07/18 04/05/21 History docusate sodium 100 mg tablet 100 mg PO BID PRN 08/10/19 04/05/21 History lactobacillus combination no.4 3 0 mmu cells PO QAM 08/10/19 04/05/21 History billion cell capsule (Probiotic) ondansetron HCl 4 mg tablet 4 mg PO Q6H PRN #20 tab 08/10/19 04/05/21 Rx (Zofran) pantoprazole 40 mg tablet,delayed 40 mg PO DAILY #30 tab 08/10/19 04/05/21 Rx release trazodone 50 mg tablet 50 mg PO HS PRN 08/10/19 04/05/21 History bupropion HCl 150 mg tablet,12 hr 150 mg PO HS 04/05/21 04/05/21 History sustained-release (Wellbutrin SR) dicyclomine 20 mg tablet 20 mg PO TID PRN 04/05/21 04/05/21 History hydrocodone 5 mg-acetaminophen 325 1 tab PO Q6H PRN 04/05/21 04/05/21 History mg tablet vortioxetine 5 mg tablet 5 mg PO DAILY 04/05/21 04/05/21 History (Trintellix) Past Med/Surg History Medical History (Updated 04/05/21 @ 20:06 by Gisela Steward PA-C) Asthma Not using inhaler on a regular basis. Denies having any h/o hospitalization or intubation due to asthma Chronic anticoagulation Depression Factor V Leiden PTSD (post-traumatic stress disorder) Recurrent deep vein thrombosis (DVT) Seizure disorder Last episode about 10 years ago. 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 Controlled with topamax. Suicidal ideation Tobacco use Ulcerative colitis Surgical History H/O tubal ligation History of cholecystectomy Hx of tonsillectomy S/P ureteral stent placement 2018 Family History Mother Dyslipidemia Social History Smoking Status: Current every day smoker Tobacco Type: Cigarettes Hx Alcohol Use: Yes Hx Substance Use: No Preferred Language: Indonesian Communication Ability: Effective Boiling House Hand Required: No Beliefs That Will Affect Care: None marital status: Current Living Situation: Alone current occupational status: employed Feels Safe at Home: Yes Assistive Devices: Glasses Review of Systems Review of Systems: At least ten systems reviewed and negative except as noted in the HPI. Physical Exam Physical Exam: General Appearance: WD/WN, vitals as above, NAD, sitting up in bed, in acute pain, conversing without issue Head: normocephalic, atraumatic Eyes: normal inspection, PERRL, conjunctivae normal, anicteric sclerae ENT: external ear and nose normal, oropharynx normal Neck: normal visual inspection, trachea midline, no thyromegaly Respiratory: normal respiratory effort, lungs clear to auscultation, no wheeze, rales, rhonchi. No accessory muscle use Cardiovascular: regular rate, rhythm, no murmur, normal peripheral pulses, no BLE edema. Vessels: no JVD Chest: normal inspection of chest Abdomen/GI: normal bowel sounds, L flank pain with radiation to suprapubic area, no hepatosplenomegaly : + L CVA TTP Extremities/Musculoskeletal: no cyanosis or clubbing, extremities motor strength 5/5 Neurologic: PERRL, EOMI, accommodation nl, no face palsy, no dysarthria, CN's II-XI intact bilaterally and moves all extremities Psychiatric: A+Ox3, euthymic affect Skin: no rashes, normal color, warm/dry Results & Data Results & Data ([facility]) Vital Signs (Past 12 Hours) Vital Signs Temp Pulse Pulse Resp BP BP Pulse Ox 04/05/21 16:48 73 18 128/73 98 04/05/21 14:40 36.5 C 115 H 16 133/98 97 Laboratory Results Short CBC 04/05/21 Range/Units Unknown WBC 9.75 (4.8-10.8) K/uL Hgb 16.9 H (12.0-16.0) g/dL Hct 46.8 (37-47) % Plt Count 185 (130-400) K/uL BMP 04/05/21 Unknown Sodium 140 Potassium 3.4 L Chloride 113 H Carbon Dioxide 20 L BUN 17 Creatinine 1.16 Glucose 128 H Calcium 8.8 Liver Function 04/05/21 Range/Units Unknown Total Bilirubin 0.3 (0.2-1) mg/dl AST 18 (15-37) U/L ALT 33 (12-78) U/L Alkaline Phosphatase 54 (45-117) U/L Albumin 3.6 (3.4-5.0) gm/dl Urine 04/05/21 Range/Units 18:02 Urine Color Yellow Urine Appearance Clear (Clear) Urine pH 5.5 (4.5-7.5) Ur Specific [place] 1.019 (1.000-1.030) Urine Protein Trace H (Negative) Urine Glucose (UA) Negative (Negative) Diagnostic Findings Abdomen/Pelvis CT 04/05/21 16:[address] WITHOUT CONTRAST CT DOSE: 519.95 mGy.cm HISTORY: Acute severe left-sided flank pain flank pain TECHNIQUE: Multiaxial CT images of the abdomen and pelvis were performed without contrast. A dose lowering technique was utilized adhering to the principles of ALARA. COMPARISON STUDY: CT abdomen and pelvis 08/10/2019, CTA chest 10/26/2018. FINDINGS: Clear lung bases. 5 mm fissural nodule of the right lung base on image 11 series 3 is unchanged from the 2019 comparison suggestive of a benign lymph node. No pneumatosis or pneumoperitoneum. The imaged inferior cardiac chambers are unremarkable. The unenhanced spleen, pancreas and adrenal glands are unremarkable. Cholecystectomy. Hepatic steatosis. Mild left-sided hydroureteronephrosis secondary to an obstructing bilobed 6 x 5 x 7 mm calculus of the left ureter at the level of L3-L4. Minimal perinephric and periureteral inflammatory stranding. Unremarkable right kidney, urinary bladder, uterus and adnexa. Inguinal chain lymph nodes measuring up to 9 mm are likely reactive. Aorta and IVC are unremarkable. No bowel obstruction or bowel wall thickening. No ascites or mesenteric inflammation. Colonic diverticulosis without acute diverticulitis. Normal appendix. Diastases recti with tiny fat filled periumbilical hernia. There is no acute fracture. IMPRESSION: 1. Mild left-sided hydroureteronephrosis secondary to an obstructing 7 mm calculus of the left ureter at the level of L3-L4. 2. No bowel obstruction or bowel wall thickening. 3. Hepatic steatosis. 4. Colonic diverticulosis. ACT 112: Negative or not required by law. The above report was generated using voice recognition software. It may contain grammatical, syntax or spelling errors. Electronically signed by: Angelo Valdez M.D. 04/05/2021 5:03 PM Supervising Physician Co-Signing Physician Notes I have seen and examined the patient and have discussed the case with the provider above. I agree with the assessment and plan as stated with the following exceptions. 50 yo F in exquisite pain from her flank, in tears and distress, breathing and counting out loud to try and refocus away from the intense pain. Exam and history was limited as a result of this pain. Physical exam as above except for patient in more distress now and holding her torso to try and maximize comfort. Provider above has been communicating with Urologist special education secretary. eKnneth with flomax, IVF and pain meds/antiemetics as needed. She is on [place] at home regularly per PDMP review. This may be why she reports the dilaudid is not working well as she has some underlying tolerance.? Giving one dose of Toradol now, despite on Xarelto, to try and achieve better pain control, give another dose Dilaudid and some PO oxycodone so the effect may last for a while (patient noted the IV medication was not lasting very long). Also gave pyridium. Consider alternatives overnight including B&O suppository? May need Urology to assess her sooner than am. Relayed to head bander and liner operator her status. Cont to strain all urine. Urology for definitive stone management. Donovan, DO
[2021-04-05] MEDS ORDERED: HYDROmorphone INJ 0.5 MG/0.5 ML SYR IV STA (18:25)
[2021-04-05 18:26] LABS: Appearance Urine Clear (Clear); Bacteria Urine Automated Negative (Negative); Bilirubin Urine Negative (Negative); Blood Urine 3+ (Negative); Color Urine Yellow; Epithelial Cell Urine Auto >30 /lpf (0-5); Glucose Urine UA Negative (Negative); Ketones Urine Negative (Negative); Leukocyte Esterase Urine 1+ (Negative); Nitrite Urine Negative (Negative); Protein Urine Trace (Negative); Specific Gravity Urine 1.019 (1.000-1.030); Urobilinogen Urine Negative (Negative); pH Urine 5.5 (4.5-7.5)
[2021-04-05 18:35] LABS: RBC Urine Automated >30 /hpf (0-4)
[2021-04-05] MEDS ORDERED: oxyCODONE HCL IR 5 MG TAB (IMMEDIATE RELEASE) PO STA (20:08)
[2021-04-05] MEDS ORDERED: HYDROmorphone INJ 1 MG/ML SYRINGE IV STA (20:08)
[2021-04-05] MEDS ORDERED: KETOROLAC TROMETHAMINE 15 MG/ML VIAL IV STA (20:08)
[2021-04-05] MEDS ORDERED: PHENAZOPYRIDINE HCL 200 MG TAB PO STA (20:11)
[2021-04-05] MEDS ORDERED: ONDANSETRON INJ 2 MG/ML 2 ML VIAL ONE (20:28)
[2021-04-05 20:45] LABS: Pregnancy Test, Serum Negative (Negative)
[2021-04-05 20:47] LABS: Partial Thromboplastin Ratio 0.8; Partial Thromboplastin Time 22.2 Seconds (21.0-31.0); Prothrombin Time 10.1 Seconds (9.0-12.0)
[2021-04-05] MEDS ORDERED: HYDROCODONE/ACETAMOPHEN 5/325MG TAB PO PRN (20:50)
[2021-04-05] MEDS ORDERED: DICYCLOMINE HCL 20 MG TAB PO PRN (20:50)
[2021-04-05] MEDS ORDERED: ALBUTEROL HFA 8 GM INHALER INH PRN (20:50)
[2021-04-05] MEDS ORDERED: DOCUSATE SODIUM 100 MG CAP PO PRN (20:58)
[2021-04-05] MEDS: SODIUM CHLORIDE 0.9% 1000ML 1,000 ML IV SCH (21:05)
[2021-04-05] MEDS: HYDROmorphone INJ 0.5 MG/0.5 ML SYR IV PRN (21:11)
[2021-04-05] MEDS: TOPIRAMATE 100 MG TAB PO SCH (22:34)
[2021-04-05] MEDS: buPROPion SR 150 MG TABCR PO SCH (22:34)
[2021-04-05] MEDS: LORazepam 0.5 MG TAB PO PRN (22:37)
[2021-04-05] MEDS ORDERED: FLUARIX QUADRIVALENT 0.5 ML SYR IM ONE (23:57)
[2021-04-06] MEDS: HYDROmorphone INJ 0.5 MG/0.5 ML SYR IV PRN ×2 (01:12→05:01)
[2021-04-06] MEDS ORDERED: ONDANSETRON INJ 2 MG/ML 2 ML VIAL IV STA (05:07)
[2021-04-06] MEDS: SODIUM CHLORIDE 0.9% 1000ML 1,000 ML IV SCH ×2 (05:27→11:25)
[2021-04-06 06:45] LABS: Hematocrit (blood only) 40.3 % (37-47); Hemoglobin 14.2 g/dL (12.0-16.0); Mean Corpuscular Hemoglobin 34.1 pg (25-34); Mean Corpuscular Hgb Conc 35.2 g/dL (32-36); Mean Corpuscular Volume 96.6 fL (80-100); Mean Platelet Volume 9.7 fL (7.4-10.4); Platelet Count 201 K/uL (130-400); RDW Coefficient of Variation 12.7 % (11.5-14.5); RDW Standard Deviation 44.4 fL (36.4-46.3); Red Blood Count 4.17 M/uL (4.2-5.4); White Blood Count 5.58 K/uL (4.8-10.8)
[2021-04-06 07:22] LABS: BUN Creatinine Ratio 13.3 (10-20); Calcium 7.7 mg/dl (8.5-10.1); Creatinine Clr Calc Pharmacy 69.2 ml/min; Est GFR (African American) 77.2 ml/min; Est GFR (Non-African American) 66.6 ml/min; Potassium 3.7 mmol/L (3.5-5.1)
[2021-04-06] MEDS ORDERED: HYDROmorphone INJ 0.5 MG/0.5 ML SYR IV PRN (08:09)
[2021-04-06] MEDS: TAMSULOSIN HCL 0.4 MG CAP PO SCH (08:26)
[2021-04-06] MEDS: TOPIRAMATE 100 MG TAB PO SCH ×2 (08:26→21:15)
[2021-04-06] MEDS: PANTOprazole 40 MG TAB PO SCH (08:27)
[2021-04-06] MEDS: FLUoxetine HCL 20 MG CAP PO SCH (08:27)
[2021-04-06] MEDS: LORazepam 0.5 MG TAB PO PRN ×2 (08:32→18:38)
--- NOTE | 2021-04-06 08:54 | Urology Consultation ---
Date of Consultation April 06, 2021 Assessment & Plan (1) Acute left flank pain: (2) Hydronephrosis with urinary obstruction due to ureteral calculus: 50 year-old female patient, with multiple comorbidities, admitted with intractable left flank pain secondary to obstructing 7 mm calculus of the left mid ureter. -Plan of care reviewed with Dr. Rothman. -Patient afebrile. -Labs reviewed - white count and creatinine normal. -Urine culture pending. -Imaging reviewed - mild left-sided hydroureteronephrosis secondary to an obstructing 7 mm calculus of the left ureter at the level of L3-L4. -Discussed in detail treatment options with patient including outpatient ESWL, emergent stent placement, or option for ureteroscopy/laser lithotripsy tomorrow while inpatient. -She is currently on Xarelto which would need to be held prior to ESWL, she declines this option at this time. -Patient poorly tolerated stent in the past and prefers to undergo stone treatment tomorrow to limit total duration of indwelling stent. -Okay to have diet today, recommend NPO at midnight. -Will plan to proceed to OR tomorrow for cystoscopy, left retrograde pyelogram, left ureteroscopy, laser lithotripsy/stone treatment, and left stent insertion. -Continue with supportive care, pain control, Flomax, hydration. -Will continue to follow while inpatient. Please consult our service urgently if patient develops fever >101F, intractable pain or nausea, as this will necessitate urgent surgical intervention. Supervising Physician Co-Signing Physician Notes I agree with the above documentation. Although a ureteral stent could be placed urgently, her poor tolerance of stents in the past makes me think that we should try to treat the treat the stone, which is a slightly more involved procedure. This will be planned for 04/07, after which she should be appropriate for discharge home assuming her pain is controlled. - Roderick Rothman MD. 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 Pain radiates into left lower abdomen/groin. Did report associated nausea but denied vomiting. Imaging was consistent with obstructing calculus in left ureter and she was admitted to medicine service for further evaluation and treatment. Urology consulted for obstructing left mid ureteral stone. Patient has followed with urology in the past, Dr. Thmopson. Long-standing history of stones requiring both ESWL and ureteroscopy/laser lithotripsy in the past. Per patient report, she did not tolerate stent well previously requiring early removal. She is on Xarelto due to recurrent DVT and history of factor V Leiden. Chart review: Afebrile Wbc 5.58 Hgb 14.2 Creatinine 1.00 Urinalysis +1 leukocytes, 10-30 wbc, >30 rbc, >30 epi, negative bacteria, negative nitrates Urine culture pending. Imaging - CT abd/pelvis without contrast - IMPRESSION: 1. Mild left-sided hydroureteronephrosis secondary to an obstructing 7 mm calculus of the left ureter at the level of L3-L4. 2. No bowel obstruction or bowel wall thickening. 3. Hepatic steatosis. 4. Colonic diverticulosis. Patient examined at bedside. She is alert, awake, non-toxic. She is visibly uncomfortable, holding left flank area. States her pain fluctuates in severity and currently due for IV pain medication. Pain radiates into left abdomen/left flank area. Does report intermittent nausea, denies vomiting. Denies dysuria or hematuria. Notes some urinary urgency/frequency. Feels she empties her bladder well. Denies fevers or chills. She states she is unable to take Toradol due to past GI bleed. Has been off of her Xarelto for a couple of days as she does not take when she has her menstrual cycle. Has been NPO since midnight. No stone passage since admission. Denies additional urologic concerns today. Allergies Allergy/AdvReac Type Severity Reaction Status Date / Time kiwi Allergy Severe ANAPHYLAXIS Verified 04/05/21 17:16 metronidazole Allergy Intermediate hives Verified 04/05/21 17:16 morphine Allergy Intermediate chest Verified 04/05/21 17:16 pain; trouble breathing tree nut Allergy Anaphylaxis Verified 04/05/21 17:16 prochlorperazine AdvReac Unknown SEVERE Verified 04/05/21 17:16 DYSTONIA Home Medications Medication Instructions Recorded Confirmed Type albuterol sulfate 90 mcg/actuation 2 puff INHALATION QID PRN 06/02/18 04/05/21 History aerosol inhaler lorazepam 0.5 mg tablet 0.5 mg PO TID PRN 06/02/18 04/05/21 History sumatriptan succinate 50 mg tablet 50 mg PO UD PRN 06/02/18 04/05/21 History topiramate 200 mg tablet 200 mg PO BID 06/02/18 04/05/21 History fluoxetine 40 mg capsule 40 mg PO QAM 10/25/18 04/05/21 History rivaroxaban 15 mg tablet (Xarelto) 15 mg PO DAILY 11/07/18 04/05/21 History docusate sodium 100 mg tablet 100 mg PO BID PRN 08/10/19 04/05/21 History lactobacillus combination no.4 3 0 mmu cells PO QAM 08/10/19 04/05/21 History billion cell capsule (Probiotic) ondansetron HCl 4 mg tablet 4 mg PO Q6H PRN #20 tab 08/10/19 04/05/21 Rx (Zofran) pantoprazole 40 mg tablet,delayed 40 mg PO DAILY #30 tab 08/10/19 04/05/21 Rx release trazodone 50 mg tablet 50 mg PO HS PRN 08/10/19 04/05/21 History bupropion HCl 150 mg tablet,12 hr 150 mg PO HS 04/05/21 04/05/21 History sustained-release (Wellbutrin SR) dicyclomine 20 mg tablet 20 mg PO TID PRN 04/05/21 04/05/21 History hydrocodone 5 mg-acetaminophen 325 1 tab PO Q6H PRN 04/05/21 04/05/21 History mg tablet vortioxetine 5 mg tablet 5 mg PO DAILY 04/05/21 04/05/21 History (Trintellix) Patient History Medical History Asthma Not using inhaler on a regular basis. Denies having any h/o hospitalization or intubation due to asthma Chronic anticoagulation Depression Factor V Leiden PTSD (post-traumatic stress disorder) Recurrent deep vein thrombosis (DVT) Seizure disorder Last episode about 10 years ago. 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 Controlled with topamax. Suicidal ideation Tobacco use Ulcerative colitis Surgical History H/O tubal ligation History of cholecystectomy Hx of tonsillectomy S/P ureteral stent placement 2018 Family History Mother Dyslipidemia Social History Smoking Status: Current some day smoker Tobacco Type: Cigarettes Second Hand Exposure: No; Do You Dip or Chew Tobacco: No; Tobacco Cessation Education Requested by Patient: No Hx Alcohol Use: No Hx Substance Use: No Preferred Language: Indonesian Communication Ability: Effective Backshoe Person Required: No Beliefs That Will Affect Care: None marital status: Current Living Situation: Spouse and Family current occupational status: employed Other Information That Helps Us Care for You: No Feels Safe at Home: Yes Safety Concerns: Feels Safe At This Time Assistive Devices: None Review of Systems Constitutional: as per Subjective / HPI; no fever and no chills Eyes: no problem reported Ear, Nose, Mouth, Throat: no dizziness Respiratory: no cough and no dyspnea Cardiovascular: no chest pain and no edema Gastrointestinal: as per Subjective / HPI Genitourinary: as per Subjective / HPI Musculoskeletal: as per Subjective / HPI Neurologic: no dizziness Endocrine: no fatigue Hematologic / Lymphatic: as per Subjective / HPI Physical Exam Constitutional: well developed and well nourished; not ill appearing and + uncomfortable ENMT: Ears: no external ear abnormality Nose: no external nose abnormality Neck: normal visual inspection and trachea midline Respiratory: normal respiratory effort and able to speak in complete sentences; no respiratory distress and no audible wheezes Cardiovascular: Extremities: no calf tenderness and no edema Gastrointestinal (Abdomen): Inspection/Auscultation: abdomen normal to inspection; abdomen not distended Percussion/Palpation: + abdomen tender (left lower quadrant) and abdomen soft; no guarding Musculoskeletal: Moves all extremities without difficulty. Skin: No visible rashes, lesions, or wounds noted. Neurologic: moves all extremities and awake Psychiatric: Orientation: alert, oriented x 3 and cooperative Genitourinary: + CVA tenderness (left) Results & Data ([facility]) Vital Signs (Past 12 Hours) Vital Signs Temp Pulse Resp BP Pulse Ox 04/06/21 06:57 36.4 C L 70 20 103/70 97 10/12/21 20:57 36.6 C 76 18 119/81 96 PG Care Time/CCT Total # of Minutes Spent Total Time Spent with Patient: Total time spent is greater than 50% in coordination of care (as documented) at patient's floor/unit and/or counseling patient: Coding Level of Care Code 14222 Inpt Consult Level 4 Diagnoses Acute left flank pain R10.9 Hydronephrosis with urinary obstruction due to ureteral calculus N13.2
[2021-04-06] MEDS ORDERED: HYDROmorphone INJ 1 MG/ML SYRINGE IV PRN (08:56)
[2021-04-06] MEDS: HYDROCODONE/ACETAMOPHEN 5/325MG TAB PO PRN (09:14)
[2021-04-06] MEDS: ONDANSETRON INJ 2 MG/ML 2 ML VIAL IV PRN ×2 (09:14→20:12)
[2021-04-06] MEDS ORDERED: NALOXONE HCL 0.4 MG/1 ML VIAL/CARP IV PRN (10:08)
[2021-04-06] MEDS: HYDROmorphone PCA 30 MG/30 ML IV PRN ×2 (11:17→19:09)
--- NOTE | 2021-04-06 11:50 | Hospitalist Progress Note ---
Date of Service April 06, 2021 Assessment & Plan (1) Hydronephrosis with urinary obstruction due to ureteral calculus: Plan: This is a 50-year-old female with PMH of recurrent DVT on Xarelto, seizure disorder, history of factor V Leiden, asthma, tobacco use, chronic pain on narcotics and other medical problems listed below who presents with worsening left lower back pain since this morning and was found to have obstructive ureteral stone. CT abd/pelvis with mild left-sided hydroureteronephrosis secondary to an obstructing 7 mm calculus of the left ureter at the level of L3-L4 She does not meet SIRS/SEPSIS Criteria, no evidence of infection at this point Urine culture, no growth at this point Urology consulted - plan for cystoscopy, left retrograde pyelogram, left ureteroscopy, laser lithotripsy/stone treatment, and left stent insertion. 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 Rothman, patient okay to continue Xarelto Pt states prior to admission she had not been taking for 3-4 days due to menstrual cycle and states he typically holds during this time each month (3) Seizure disorder: Plan: No seizure history in ten years. Continue Topamax (4) Depression: Plan: mood stable Continue bupropion, fluoxetine (5) Anxiety: Plan: Continue fluoxetine, Ativan PRN (6) Tobacco use: Plan: Cessation education. Offered nicotine patch DVT Ppx: Xarelto Code status: FULL PCP: Papi Dispo: Admitted to med/surg, plan to undergo surgery tomorrow, D/C plan pending procedure and urology eval Patient seen in collaboration with Dr. Man. Please see addendum. Admission and Anticipated Discharge Date Admission Date: April 05, 2021 Supervising Physician Co-Signing Physician Notes I have seen and examined the patient and have discussed the case with the provider above. I agree with the assessment and plan as stated. 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 She has been able to eat and is awaiting her procedure tomorrow. Still with left flank tenderness but abdomen soft, NTND. Heart and lung exam as above. No other abnormal physical exam findings noted. Urology for stone removal and stent placement in am. DO Nilsa Man Patient was seen and examined in room 382-1. Follow-up left ureteral stone with mild hydronephrosis. Patient initially examined around 8 AM. She was complaining of 10 out of 10 left lower back pain radiating to the left lower quadrant. Described pain as sharp and made worse with movement. Current pain regimen not helping. She also complains of feeling nauseated. Patient has history of stones in the past and feels pain is similar. She also admits to difficulty achieving urine stream and mild dysuria. She was reexamined at approximately 1545. After initiation of Dilaudid PRESS SETUP OPERATOR pain is much improved and currently 5 out of 10. Nausea has subsided and she is able to tolerate crackers and lynette joana. Review of Systems Review of Systems: At least ten systems reviewed and negative except as noted in the HPI. Physical Exam Physical Exam: Gen: WD/WN, F, lying in bed,NAD, A&O x3, during initial eval pt was in Lateral decub position in significant pain; during re eval sitting up style in bed eating crackers HEENT: Normocephalic, atraumatic, conjunctivae moist, sclerae anicteric, mucous membranes moist. Lung: Clear to Auscultation bilaterally, no wheezes/rales/rhonchi Heart: Regular rate, regular rhythm, no murmurs, rubs, or gallops Abdomen: Soft, NT, ND +BS x 4, negative cva tenderness Extremities: No edema Skin: Warm, no rash, negative turgor. Results & Data Results & Data ([facility]) Vital Signs (Past 12 Hours) Vital Signs Temp Pulse Resp BP Pulse Ox 04/06/21 11:28 37.3 C 80 20 105/71 97 04/06/21 06:57 36.4 C L 70 20 103/70 97 Laboratory Results Short CBC 04/06/21 Range/Units 06:22 WBC 5.58 (4.8-10.8) K/uL Hgb 14.2 (12.0-16.0) g/dL Hct 40.3 (37-47) % Plt Count 201 (130-400) K/uL BMP 04/06/21 06:22 Sodium 142 Potassium 3.7 Chloride 116 H Carbon Dioxide 22 BUN 13 Creatinine 1.00 Glucose 90 Calcium 7.7 L Urine 04/05/21 Range/Units 18:02 Urine Color Yellow Urine Appearance Clear (Clear) Urine pH 5.5 (4.5-7.5) Ur Specific [place] 1.019 (1.000-1.030) Urine Protein Trace H (Negative) Urine Glucose (UA) Negative (Negative) Diagnostic Findings Abdomen/Pelvis CT 04/05/21 16:[address] WITHOUT CONTRAST CT DOSE: 519.95 mGy.cm HISTORY: Acute severe left-sided flank pain flank pain TECHNIQUE: Multiaxial CT images of the abdomen and pelvis were performed without contrast. A dose lowering technique was utilized adhering to the principles of ALARA. COMPARISON STUDY: CT abdomen and pelvis 08/10/2019, CTA chest 10/26/2018. FINDINGS: Clear lung bases. 5 mm fissural nodule of the right lung base on image 11 series 3 is unchanged from the 2019 comparison suggestive of a benign lymph node. No pneumatosis or pneumoperitoneum. The imaged inferior cardiac chambers are unremarkable. The unenhanced spleen, pancreas and adrenal glands are unremarkable. Cholecystectomy. Hepatic steatosis. Mild left-sided hydroureteronephrosis secondary to an obstructing bilobed 6 x 5 x 7 mm calculus of the left ureter at the level of L3-L4. Minimal perinephric and periureteral inflammatory stranding. Unremarkable right kidney, urinary bladder, uterus and adnexa. Inguinal chain lymph nodes measuring up to 9 mm are likely reactive. Aorta and IVC are unremarkable. No bowel obstruction or bowel wall thickening. No ascites or mesenteric inflammation. Colonic diverticulosis without acute diverticulitis. Normal appendix. Diastases recti with tiny fat filled periumbilical hernia. There is no acute fracture. IMPRESSION: 1. Mild left-sided hydroureteronephrosis secondary to an obstructing 7 mm calculus of the left ureter at the level of L3-L4. 2. No bowel obstruction or bowel wall thickening. 3. Hepatic steatosis. 4. Colonic diverticulosis. ACT 112: Negative or not required by law. The above report was generated using voice recognition software. It may contain grammatical, syntax or spelling errors. Electronically signed by: Angelo Valdez M.D. 04/05/2021 5:03 PM Chest X-Ray 04/06/21 09:42 XR chest 2V PA/lateral HISTORY: 50 years-old Female preop preoperative exam. No acute chest complaints COMPARISON: Chest radiographs 11/08/2018, CT abdomen and pelvis 04/05/2021 TECHNIQUE: PA and lateral views of the chest FINDINGS: Cardiac mediastinal and hilar silhouettes are within normal limits. No pneumothorax, pleural effusion, airspace consolidation or overt pulmonary edema. Mild linear subsegmental atelectasis of the left lung base. No acute fracture. Cholecystectomy. IMPRESSION: No acute process. ACT 112: Negative or not required by law. The above report was generated using voice recognition software. It may contain grammatical, syntax or spelling errors. Electronically signed by: Angelo Valdez M.D. 04/06/2021 1:34 PM Medications Administered Current Inpatient Medications Hydrocodone Bitart/Acetaminophen (Hydrocodone/Acetamophen 5/325mg Tab) 1 - 2 tab PO Q6H PRN PRN Reason: Pain Stop: 04/19/21 20:49 Last Admin: 04/06/21 09:14 Dose: 2 tab Documented by: Albuterol (Albuterol Hfa 8 Gm Inhaler) 2 puffs INH QID PRN PRN Reason: Shortness Of Breath Or Wheezing Stop: 05/05/21 20:49 Bupropion HCl (Bupropion Sr 150 Mg Tabcr) 150 mg PO HS VINAYAK Stop: 05/05/21 20:59 Last Admin: 04/05/21 22:34 Dose: Not Given Documented by: Dicyclomine HCl (Dicyclomine Hcl 20 Mg Tab) 20 mg PO TID PRN PRN Reason: .IBS Stop: 05/05/21 20:49 Last Admin: 04/06/21 08:26 Dose: 20 mg Documented by: Docusate Sodium (Docusate Sodium 100 Mg Cap) 100 mg PO BID PRN PRN Reason: Constipation Stop: 05/05/21 20:57 Fluoxetine HCl (Fluoxetine Hcl 20 Mg Cap) 40 mg PO QAM VINAYAK Stop: 05/06/21 08:59 Last Admin: 04/06/21 08:27 Dose: 40 mg Documented by: Hydromorphone HCl (Hydromorphone [employer] Le[employer] Sales Representative 30 Mg/30 Ml) 30 mg IV PRN PRN; Protocol PRN Reason: PRESS SETUP OPERATOR Pain Titration Stop: 04/20/21 10:07 Last Admin: 04/06/21 11:17 Dose: 30 mg Documented by: Ciprofloxacin (Cipro / D5w) 400 mg in 200 mls @ 100 mls/hr IV PREOP VINAYAK; Protocol Stop: 04/08/21 05:59 Sodium Chloride (Nss 1000ml) 1,000 mls @ 15 mls/hr IV .Q24H VINAYAK Stop: 04/20/21 10:08 Last Admin: 04/06/21 11:25 Dose: 15 mls/hr Documented by: Lorazepam (Lorazepam 0.5 Mg Tab) 0.5 mg PO TID PRN PRN Reason: Anxiety Stop: 05/05/21 20:49 Last Admin: 04/06/21 08:32 Dose: 0.5 mg Documented by: Naloxone HCl (Naloxone Hcl 0.4 Mg/1 Ml Vial/Carp) 0.1 mg IV Q5M PRN; Protocol PRN Reason: Oversedation/Resp Depression Stop: 04/20/21 10:07 Ondansetron HCl (Ondansetron Inj 2 Mg/Ml 2 Ml Vial) 4 mg IV Q4H PRN PRN Reason: Nausea Stop: 05/06/21 08:54 Last Admin: 04/06/21 09:14 Dose: 4 mg Documented by: Pantoprazole Sodium (Pantoprazole 40 Mg Tab) 40 mg PO DAILY VINAYAK Stop: 05/06/21 08:59 Last Admin: 04/06/21 08:27 Dose: 40 mg Documented by: Rivaroxaban (Rivaroxaban 15 Mg Tab) 15 mg PO QDD [facility] Stop: 05/06/21 16:29 Senna/Docusate Sodium (Docusate Sodium/Senna 50/8.6mg Tab) 1 tab PO BID VINAYAK Stop: 05/06/21 20:59 Tamsulosin HCl (Tamsulosin Hcl 0.4 Mg Cap) 0.4 mg PO QAM VINAYAK Stop: 05/06/21 08:59 Last Admin: 04/06/21 08:26 Dose: 0.4 mg Documented by: Topiramate (Topiramate 100 Mg Tab) 200 mg PO BID [facility] Stop: 05/05/21 20:59 Last Admin: 04/06/21 08:26 Dose: 200 mg Documented by:
--- NOTE | 2021-04-06 12:47 | Electrocardiogram Report ---
Test Reason : Blood Pressure : / mmHG Vent. Rate : 082 BPM Atrial Rate : 082 BPM P-R Int : 164 ms QRS Dur : 080 ms QT Int : 388 ms P-R-T Axes : 052 062 070 degrees QTc Int : 453 ms Normal sinus rhythm Normal ECG When compared with ECG of 10-AUG-2019 18:08, Vent. rate has increased BY 27 BPM Confirmed by Richi Tamez ([id number]) on 04/06/2021 12:46:35 PM Referred By: REFERRED SELF Confirmed By:Richi Tamez
--- NOTE | 2021-04-06 13:36 | XRay Report ---
XR chest 2V PA/lateral HISTORY: 50 years-old Female preop preoperative exam. No acute chest complaints COMPARISON: Chest radiographs 11/08/2018, CT abdomen and pelvis 04/05/2021 TECHNIQUE: PA and lateral views of the chest FINDINGS: Cardiac mediastinal and hilar silhouettes are within normal limits. No pneumothorax, pleural effusion , airspace consolidation or overt pulmonary edema. Mild linear subsegmental atelectasis of the left l anderson base. No acute fracture. Cholecystectomy. IMPRESSION: No acute process. ACT 112: Negative or not required by law. The above report was generated using voice recognition software. It may contain grammatical, syntax o r spelling errors. Electronically signed by: Angelo Valdez M.D. 04/06/2021 1:34 PM
[2021-04-06] MEDS: LACTATED RINGER'S 1,000 ML IV SCH (16:47)
[2021-04-06] MEDS: RIVAROXABAN 15 MG TAB PO SCH (18:19)
[2021-04-06] MEDS ORDERED: SUMAtriptan succinate 50 MG TAB PO STA (20:24)
[2021-04-06] MEDS: DOCUSATE SODIUM/SENNA 50/8.6MG TAB PO SCH (21:15)
[2021-04-06] MEDS: buPROPion SR 150 MG TABCR PO SCH (21:15)
[2021-04-07] MEDS: LORazepam 0.5 MG TAB PO PRN ×3 (00:13→21:36)
[2021-04-07] MEDS: ONDANSETRON INJ 2 MG/ML 2 ML VIAL IV PRN ×3 (00:13→11:59)
[2021-04-07] MEDS: LACTATED RINGER'S 1,000 ML IV SCH ×3 (01:00→18:06)
[2021-04-07] MEDS ORDERED: CIPROFLOXACIN / D5W 400 MG/200 ML BAG IV SCH (06:00)
[2021-04-07 07:08] LABS: Hemoglobin 14.2 g/dL (12.0-16.0); Mean Corpuscular Hemoglobin 33.9 pg (25-34); Mean Corpuscular Hgb Conc 34.6 g/dL (32-36); Mean Corpuscular Volume 97.9 fL (80-100); Mean Platelet Volume 10.3 fL (7.4-10.4); Platelet Count 211 K/uL (130-400); RDW Coefficient of Variation 12.6 % (11.5-14.5); RDW Standard Deviation 44.8 fL (36.4-46.3); Red Blood Count 4.19 M/uL (4.2-5.4); White Blood Count 6.91 K/uL (4.8-10.8)
[2021-04-07 07:31] LABS: BUN Creatinine Ratio 11.6 (10-20); Calcium 8.4 mg/dl (8.5-10.1); Creatinine Clr Calc Pharmacy 65.2 ml/min; Est GFR (African American) 71.9 ml/min; Potassium 3.6 mmol/L (3.5-5.1)
[2021-04-07] MEDS: PANTOprazole 40 MG TAB PO SCH (07:36)
[2021-04-07] MEDS: TOPIRAMATE 100 MG TAB PO SCH ×2 (07:36→21:36)
[2021-04-07] MEDS: DOCUSATE SODIUM/SENNA 50/8.6MG TAB PO SCH ×2 (07:36→21:36)
[2021-04-07] MEDS: FLUoxetine HCL 20 MG CAP PO SCH (07:36)
[2021-04-07] MEDS: TAMSULOSIN HCL 0.4 MG CAP PO SCH (07:36)
--- NOTE | 2021-04-07 07:46 | Urology Progress Note ---
Date of Service April 07, 2021 Assessment & Plan (1) Acute left flank pain: (2) Hydronephrosis with urinary obstruction due to ureteral calculus: Plan: 50 year-old female patient, with multiple comorbidities, admitted with intractable left flank pain secondary to obstructing 7 mm calculus of the left mid ureter. -Patient remains afebrile. -Labs reviewed - white count and creatinine normal. -Preliminary urine culture no growth, await final. -Continue to strain urine. -Keep NPO for planned procedure. -Continue with supportive care, pain control, Flomax, hydration. Findings reviewed with Dr. Rothman. Given her intractable left flank pain in the context of an obstructing 7 mm left mid ureteral stone, will proceed to OR for cystoscopy, left retrograde pyelogram, left ureteroscopy, laser lithotripsy/stone treatment, and left stent placement. Risks and benefits of the procedure discussed and to be reviewed with patient by Dr. Rothman. OR notified. Preoperative CXR and EKG in chart. COVID-19 negative. Will cover with IV Ciprofloxacin preoperatively. Admission and Anticipated Discharge Date Admission Date: April 05, 2021 Supervising Physician Co-Signing Physician Notes I have seen and examined Ms. Pierce and agree with the above documentation. We discussed her surgery, including risks and benefits. We discussed risks of bleeding, infection, injury to urinary tract, stent pain, inability to treat the stone. She expressed understanding and agreed to proceed. We discussed the possibility of leaving the strings on the stent, to allow her to remove it at home. Consent signed, marked on the left side. We discussed that if her pain is controlled after her surgery, she should be appropriate for discharge from a urology perspective. - Roderick Rothman MD. Subjective Patient examined at bedside, resting comfortably. 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 Pain located in left flank area. Feels abdominal bloating. Has intermittent nausea, denies vomiting. Denies fevers or chills but does feel "warm" at times. Denies dysuria, notes intermittent hematuria. Denies urinary urgency/frequency. Has been NPO since midnight. No stone passage since hospital admission. Chart review: Afebrile Wbc 6.91 Hgb 14.2 Creatinine 1.06 Preliminary urine culture no growth. Denies additional urologic concerns today. Review of Systems Constitutional: as per Subjective / HPI; no fever and no chills Respiratory: no cough and no dyspnea Cardiovascular: no edema Gastrointestinal: as per Subjective / HPI; no nausea and no vomiting Genitourinary: as per Subjective / HPI Physical Exam Constitutional: well developed and well nourished; no acute distress and not ill appearing Respiratory: normal respiratory effort and able to speak in complete sentences; no respiratory distress and no audible wheezes On oxygen therapy via nasal cannula Gastrointestinal (Abdomen): Inspection/Auscultation: abdomen normal to inspection; abdomen not distended Percussion/Palpation: + abdomen tender (Diffuse tenderness to abdomen) and abdomen soft; no guarding Psychiatric: Orientation: alert, oriented x 3 and cooperative Affect: euthymic affect Genitourinary: + CVA tenderness (left) Results & Data ([facility]) Vital Signs (Past 12 Hours) Vital Signs Temp Pulse Resp BP Pulse Ox 04/07/21 07:30 37.1 C 83 18 107/72 97 04/06/21 22:29 37.1 C 80 16 115/58 L 96 PG Care Time/CCT Total # of Minutes Spent Total Time Spent with Patient: Total time spent is greater than 50% in coordination of care (as documented) at patient's floor/unit and/or counseling patient: Coding Level of Care Code 36299 Subseq Hosp Care Lvl 2 Diagnoses Acute left flank pain R10.9 Hydronephrosis with urinary obstruction due to ureteral calculus N13.2
[2021-04-07] MEDS ORDERED: ceFAZolin 2000MG 2,000 MG/15 ML SYR IV ONE (08:58)
--- NOTE | 2021-04-07 09:56 | Hospitalist Progress Note ---
Date of Service April 07, 2021 Assessment & Plan (1) Hydronephrosis with urinary obstruction due to ureteral calculus: Plan: This is a 50-year-old female with PMH of recurrent DVT on Xarelto, seizure disorder, history of factor V Leiden, asthma, tobacco use, chronic pain on narcotics and other medical problems listed below who presents with worsening left lower back pain since this morning and was found to have obstructive ureteral stone. 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 Rothman, patient okay to continue Xarelto Pt states prior to admission she had not been taking for 3-4 days due to menstrual cycle and states she typically holds during this time each month (3) Seizure disorder: Plan: No seizure history in ten years. Continue Topamax (4) Depression: Plan: Mood stable Continue bupropion, fluoxetine (5) Anxiety: Plan: Continue fluoxetine, Ativan PRN (6) Tobacco use: Plan: Cessation education. Offered nicotine patch DVT Ppx: Xarelto Code status: FULL PCP: Papi Dispo: Admitted to med/surg, plan to undergo surgery tomorrow, D/C plan pending procedure and urology eval Patient seen in collaboration with Dr. Man. Please see addendum. Admission and Anticipated Discharge Date Admission Date: April 05, 2021 Supervising Physician Co-Signing Physician Notes I have seen and examined the patient and have discussed the case with the provider above. I agree with the assessment and plan as stated. She was evaluated postoperatively and per Urology, she was hypercarbic and oversedated on narcotics at the start of the case. MICRO PALEONTOLOGIST was stopped. Pt reports that she is starving and upset that she asked for food "over an hour ago." Denies hemanth pain at this time but doesn't want to go home because she feels she won't get any rest there. Physical exam reflects guarding in the L flank region. Otherwise heart and lung exam is normal. Per Urology stone was successfully removed and stent placed which she can self remove later. Cont supportive care efforts overnight, making strides to minimize IV dilaudid in this lady with opiate dependence. [place], DO Subjective Patient examined at bedside, resting comfortably. 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 Pain located in left flank area with radiation to L suprapubic area. Intermittent nausea, no vomiting. Denies fever, chills, CP, SOB. Urinating without issue, intermittent hematuria. Passing flatus, last bowel movement Sunday prior to arrival. Review of Systems Review of Systems: At least ten systems reviewed and negative except as noted in the HPI. Physical Exam Physical Exam: General Appearance: WD/WN, vitals as above, NAD, sitting in bed comfortably, conversing without issue Head: normocephalic, atraumatic Eyes: normal inspection, PERRL, conjunctivae normal, anicteric sclerae ENT: external ear and nose normal, oropharynx normal Neck: normal visual inspection, trachea midline, no thyromegaly Respiratory: normal respiratory effort, lungs clear to auscultation, no wheeze, rales, rhonchi. No accessory muscle use Cardiovascular: regular rate, rhythm, no murmur, normal peripheral pulses, no BLE edema. Vessels: no JVD Chest: normal inspection of chest Abdomen/GI: normal bowel sounds, L flank pain with radiation to suprapubic area, no hepatosplenomegaly : + L CVA TTP Extremities/Musculoskeletal: no cyanosis or clubbing, extremities motor strength 5/5 Neurologic: PERRL, EOMI, accommodation nl, no face palsy, no dysarthria, CN's II-XI intact bilaterally and moves all extremities Psychiatric: A+Ox3, euthymic affect Skin: no rashes, normal color, warm/dry Results & Data Results & Data ([facility]) Vital Signs (Past 12 Hours) Vital Signs Temp Pulse Resp BP Pulse Ox 04/07/21 07:30 37.1 C 83 18 107/72 97 04/06/21 22:29 37.1 C 80 16 115/58 L 96 Laboratory Results Short CBC 04/07/21 Range/Units 05:46 WBC 6.91 (4.8-10.8) K/uL Hgb 14.2 (12.0-16.0) g/dL Hct 41.0 (37-47) % Plt Count 211 (130-400) K/uL BMP 04/07/21 05:46 Sodium 140 Potassium 3.6 Chloride 109 H Carbon Dioxide 24 BUN 12 Creatinine 1.06 Glucose 96 Calcium 8.4 L Diagnostic Findings Abdomen/Pelvis CT 04/05/21 16:[address] WITHOUT CONTRAST CT DOSE: 519.95 mGy.cm HISTORY: Acute severe left-sided flank pain flank pain TECHNIQUE: Multiaxial CT images of the abdomen and pelvis were performed without contrast. A dose lowering technique was utilized adhering to the principles of ALARA. COMPARISON STUDY: CT abdomen and pelvis 08/10/2019, CTA chest 10/26/2018. FINDINGS: Clear lung bases. 5 mm fissural nodule of the right lung base on image 11 series 3 is unchanged from the 2019 comparison suggestive of a benign lymph node. No pneumatosis or pneumoperitoneum. The imaged inferior cardiac chambers are unremarkable. The unenhanced spleen, pancreas and adrenal glands are unremarkable. Cholecystectomy. Hepatic steatosis. Mild left-sided hydroureteronephrosis secondary to an obstructing bilobed 6 x 5 x 7 mm calculus of the left ureter at the level of L3-L4. Minimal perinephric and periureteral inflammatory stranding. Unremarkable right kidney, urinary bladder, uterus and adnexa. Inguinal chain lymph nodes measuring up to 9 mm are likely reactive. Aorta and IVC are unremarkable. No bowel obstruction or bowel wall thickening. No ascites or mesenteric inflammation. Colonic diverticulosis without acute diverticulitis. Normal appendix. Diastases recti with tiny fat filled periumbilical hernia. There is no acute fracture. IMPRESSION: 1. Mild left-sided hydroureteronephrosis secondary to an obstructing 7 mm calculus of the left ureter at the level of L3-L4. 2. No bowel obstruction or bowel wall thickening. 3. Hepatic steatosis. 4. Colonic diverticulosis. ACT 112: Negative or not required by law. The above report was generated using voice recognition software. It may contain grammatical, syntax or spelling errors. Electronically signed by: Angelo Valdez M.D. 04/05/2021 5:03 PM Chest X-Ray 04/06/21 09:42 XR chest 2V PA/lateral HISTORY: 50 years-old Female preop preoperative exam. No acute chest complaints COMPARISON: Chest radiographs 11/08/2018, CT abdomen and pelvis 04/05/2021 TECHNIQUE: PA and lateral views of the chest FINDINGS: Cardiac mediastinal and hilar silhouettes are within normal limits. No pneumothorax, pleural effusion, airspace consolidation or overt pulmonary edema. Mild linear subsegmental atelectasis of the left lung base. No acute fracture. Cholecystectomy. IMPRESSION: No acute process. ACT 112: Negative or not required by law. The above report was generated using voice recognition software. It may contain grammatical, syntax or spelling errors. Electronically signed by: Angelo Valdez M.D. 04/06/2021 1:34 PM
[2021-04-07] MEDS: SODIUM CHLORIDE 0.9% 1000ML 1,000 ML IV SCH (10:16)
--- NOTE | 2021-04-07 11:59 | Anesthesiology Consultation ---
Date of Service April 07, 2021 Assessment & Plan (1) Encounter for pre-operative examination: Chart Review Chart Review: Acceptable Risk for Surgery History Surgery Operation Date: 04/07/21 13:35 Proposed Procedures p Cystoscopy, Left Ureteroscopy, Retrograde Pyelogram, Laser Lithotripsy, Stent Placement - Roderick Rothman MD Height/Weight Height: 5 ft 3 in Weight: 80.6 kg Allergies Allergy/AdvReac Type Severity Reaction Status Date / Time kiwi Allergy Severe ANAPHYLAXIS Verified 04/05/21 17:16 metronidazole Allergy Intermediate hives Verified 04/05/21 17:16 morphine Allergy Intermediate chest Verified 04/05/21 17:16 pain; trouble breathing tree nut Allergy Anaphylaxis Verified 04/05/21 17:16 prochlorperazine AdvReac Unknown SEVERE Verified 04/05/21 17:16 DYSTONIA Medications Home Medications Medication Instructions Recorded Confirmed Last Taken albuterol sulfate 90 mcg/actuation 2 puff INHALATION QID PRN 06/02/18 04/05/21 Unknown aerosol inhaler lorazepam 0.5 mg tablet 0.5 mg PO TID PRN 06/02/18 04/05/21 04/05/21 sumatriptan succinate 50 mg tablet 50 mg PO UD PRN 06/02/18 04/05/21 Unknown topiramate 200 mg tablet 200 mg PO BID 06/02/18 04/05/21 06/02/18 05:30 fluoxetine 40 mg capsule 40 mg PO QAM 10/25/18 04/05/21 04/05/21 rivaroxaban 15 mg tablet (Xarelto) 15 mg PO DAILY 11/07/18 04/05/21 08/10/19 08:00 docusate sodium 100 mg tablet 100 mg PO BID PRN 08/10/19 04/05/21 Unknown lactobacillus combination no.4 3 0 mmu cells PO QAM 08/10/19 04/05/21 04/05/21 billion cell capsule (Probiotic) ondansetron HCl 4 mg tablet 4 mg PO Q6H PRN #20 tab 08/10/19 04/05/21 Unknown (Zofran) pantoprazole 40 mg tablet,delayed 40 mg PO DAILY #30 tab 08/10/19 04/05/21 Unknown release trazodone 50 mg tablet 50 mg PO HS PRN 08/10/19 04/05/21 Unknown bupropion HCl 150 mg tablet,12 hr 150 mg PO HS 04/05/21 04/05/21 04/04/21 sustained-release (Wellbutrin SR) dicyclomine 20 mg tablet 20 mg PO TID PRN 04/05/21 04/05/21 Unknown hydrocodone 5 mg-acetaminophen 325 1 tab PO Q6H PRN 04/05/21 04/05/21 04/05/21 10:00 mg tablet vortioxetine 5 mg tablet 5 mg PO DAILY 04/05/21 04/05/21 Unknown (Trintellix) Active Medications Generic Name Dose Route Start Last Admin Trade Name Freq PRN Reason Stop Dose Admin Hydrocodone Bitart/Acetaminophen 1 - 2 tab 04/06/21 08:56 04/06/21 09:14 Hydrocodone/Acetamophen 5/325mg Tab PO 04/19/21 20:49 2 tab Q6H PRN Administration Pain Bupropion HCl 150 mg 04/05/21 21:00 04/06/21 21:15 Bupropion Sr 150 Mg Tabcr PO 05/05/21 20:59 150 mg HS VINAYAK Administration Dicyclomine HCl 20 mg 04/05/21 20:50 04/06/21 08:26 Dicyclomine Hcl 20 Mg Tab PO 05/05/21 20:49 20 mg TID PRN Administration .IBS Fluoxetine HCl 40 mg 04/06/21 09:00 04/07/21 07:36 Fluoxetine Hcl 20 Mg Cap PO 05/06/21 08:59 40 mg QAM VINAYAK Administration Hydromorphone HCl 30 mg 04/06/21 10:08 04/06/21 19:09 Hydromorphone Gis Programmer 30 Mg/30 Ml IV 04/20/21 10:07 30 mg PRN PRN Administration SOAPSTONER Pain Titration Protocol Sodium Chloride 1,000 mls @ 15 mls/hr 04/06/21 10:15 04/07/21 10:16 Nss 1000ml IV 04/20/21 10:08 15 mls/hr .Q24H VINAYAK Administration Lactated Ringer's 1,000 mls @ 125 mls/hr 04/06/21 16:15 04/07/21 11:23 Lr IV 05/06/21 16:14 0 mls/hr .Q8H VINAYAK Infusion Lorazepam 0.5 mg 04/05/21 20:50 04/07/21 00:13 Lorazepam 0.5 Mg Tab PO 05/05/21 20:49 0.5 mg TID PRN Administration Anxiety Ondansetron HCl 4 mg 04/06/21 08:55 04/07/21 04:11 Ondansetron Inj 2 Mg/Ml 2 Ml Vial IV 05/06/21 08:54 4 mg Q4H PRN Administration Nausea Pantoprazole Sodium 40 mg 04/06/21 09:00 04/07/21 07:36 Pantoprazole 40 Mg Tab PO 05/06/21 08:59 40 mg DAILY VINAYAK Administration Rivaroxaban 15 mg 04/06/21 16:30 04/06/21 18:19 Rivaroxaban 15 Mg Tab PO 05/06/21 16:29 Not Given QDD VINAYAK Senna/Docusate Sodium 1 tab 04/06/21 21:00 04/07/21 07:36 Docusate Sodium/Senna 50/8.6mg Tab PO 05/06/21 20:59 1 tab BID VINAYAK Administration Tamsulosin HCl 0.4 mg 04/06/21 09:00 04/07/21 07:36 Tamsulosin Hcl 0.4 Mg Cap PO 05/06/21 08:59 0.4 mg QAM VINAYAK Administration Topiramate 200 mg 04/05/21 21:00 04/07/21 07:36 Topiramate 100 Mg Tab PO 05/05/21 20:59 200 mg BID VINAYAK Administration NPO Date Last Intake of Fluids: 04/06/21 Time Last Intake of Fluids: 23:59 Date Last Intake of Solids: 04/06/21 Time Last Intake of Solids: 23:59 Past Medical History Medical History Asthma Not using inhaler on a regular basis. Denies having any h/o hospitalization or intubation due to asthma Chronic anticoagulation Depression Factor V Leiden PTSD (post-traumatic stress disorder) Recurrent deep vein thrombosis (DVT) Seizure disorder Last episode about 10 years ago. 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 Controlled with topamax. Suicidal ideation Tobacco use Ulcerative colitis Past Family History Family History Mother Dyslipidemia Past Surgical History Surgical History H/O tubal ligation History of cholecystectomy Hx of tonsillectomy S/P ureteral stent placement 2018 Social History Smoking Status: Current some day smoker tobacco type: cigarettes Do You Dip or Chew Tobacco: No Hx Alcohol Use: No alcohol intake frequency: holidays/special occasions only Hx Substance Use: No Physical Exam Vital Signs Last Vital Signs Temp 37.1 C 04/07/21 07:30 Pulse 83 04/07/21 07:30 Resp 18 04/07/21 07:30 BP 107/72 04/07/21 07:30 Pulse Ox 97 04/07/21 07:30 Testing Laboratory Results 04/07/21 05:46 04/07/21 05:46 PT 10.1 Seconds (9.0-12.0) 04/05/21 15:05 INR 1.0 (0.9-1.1) 04/05/21 15:05 APTT 22.2 Seconds (21.0-31.0) 04/05/21 15:05 Urine Color Yellow 04/05/21 18:02 Urine Appearance Clear (Clear) 04/05/21 18:02 Urine pH 5.5 (4.5-7.5) 04/05/21 18:02 Ur Specific Advance 1.019 (1.000-1.030) 04/05/21 18:02 Urine Protein Trace (Negative) H 04/05/21 18:02 Urine Glucose (UA) Negative (Negative) 04/05/21 18:02 Urine Ketones Negative (Negative) 04/05/21 18:02 Urine Nitrite Negative (Negative) 04/05/21 18:02 Ur Leukocyte Esterase 1+ (Negative) H 04/05/21 18:02 Urine WBC (Auto) 10-30 /hpf (0-5) H 04/05/21 18:02 Urine RBC (Auto) >30 /hpf (0-4) H 04/05/21 18:02 U Hyaline Cast (Auto) 1-5 /lpf (0-5) 04/05/21 18:02 U Epithel Cells (Auto) >30 /lpf (0-5) H 04/05/21 18:02 Urine Bacteria (Auto) Negative (Negative) 04/05/21 18:02 04/05/21 18:02 Urine Culture - Final Urine,Clean Catch Three types of organisms present, all low counts probable skin gab. No further identifications or sensitivities to follow. Electrocardiogram Date: 04/06/21 Findings: + NSR @ (82) Chest X-Ray Date: 04/06/21 Findings: + NAD
[2021-04-07] MEDS ORDERED: PROPOFOL IV EMULSION 10 MG/ML 20 ML VIAL IV ONE (14:20)
[2021-04-07] MEDS ORDERED: MIDAZOLAM HCL 1 MG/ML 2ML VIAL ONE (14:20)
[2021-04-07] MEDS ORDERED: ONDANSETRON INJ 2 MG/ML 2 ML VIAL ONE (14:20)
[2021-04-07] MEDS ORDERED: LIDOCAINE 2% 2 ML VIAL/AMP(20MG/ML) INFIL ONE (14:20)
[2021-04-07] MEDS ORDERED: fentaNYL citrate 100 MCG/2 ML VIAL ONE (14:21)
[2021-04-07] MEDS ORDERED: ATROPINE SULFATE 0.1 MG/ML 10ML SYR IV PRN (15:25)
[2021-04-07] MEDS ORDERED: fentaNYL citrate 100 MCG/2 ML VIAL IV PRN (15:25)
[2021-04-07] MEDS ORDERED: ONDANSETRON INJ 2 MG/ML 2 ML VIAL IV PRN (15:25)
[2021-04-07] MEDS ORDERED: ceFAZolin 2,000 MG/15 ML IV PUSH IV ONE (15:43)
[2021-04-07] MEDS ORDERED: DEXAMETHASONE SOD INJ 4 MG/ML VIAL ONE (15:58)
[2021-04-07] MEDS ORDERED: DIATRIZOATE MEGLUMINE 30% 100ML VIAL INSTIL ONE (16:11)
--- NOTE | 2021-04-07 16:43 | Post Operative Brief Note ---
PG Immediate Post Op with CF Date of Surgery April 07, 2021 Pre & Post Diagnosis Operation Date: 04/07/21 13:35 Pre-Op Diagnosis: Left ureteral stone Post-Op Diagnosis: Left ureteral stone I identified the patient and participated in the time-out.: Yes Procedure Operation Date: 04/07/21 13:35 Actual Procedures p Cystoscopy, Left Ureteronephroscopy, Retrograde Pyelogram, Laser Lithotripsy, Stone Basket Extraction, Stent Placement(Left) - Roderick Rothman MD Surgeon Roderick Rothman MD Site Damage Prevention Technician none Estimated Blood Loss 0 Findings Consistent with Post-Op Diagnosis Specimens Specimen Description: A: Left kidney stone Disposition Accompanied Patient To Recovery: No
[2021-04-07] MEDS ORDERED: FLUMAZENIL 0.1 MG/1 ML 10 ML VIAL IV ONE (16:58)
--- NOTE | 2021-04-07 17:01 | Operative Report ---
PG Post Operative Report Pre & Post Diagnosis Operation Date: 04/07/21 13:35 Pre-Op Diagnosis: Left ureteral stone Post-Op Diagnosis: Left ureteral stone I identified the patient and participated in the time-out.: Yes Procedure Operation Date: 04/07/21 13:35 Actual Procedures p Cystoscopy, Left Ureteronephroscopy, Retrograde Pyelogram, Laser Lithotripsy, Stone Basket Extraction, Stent Placement(Left) - Roderick Rothman MD Surgeon Roderick Rothman MD Suture Winder Hand none Estimated Blood Loss 0 Findings Consistent with Post-Op Diagnosis Specimens left ureteral stone Drains 6 Fr x 24 cm double J ureteral stent in left ureter with strings left in place. Anesthesia Type General Complications none Disposition Accompanied Patient To Recovery: No Indications This is a 50-year-old female who recently presented to the emergency department with acute onset of left-sided flank pain. She was found to have a left ureteral stone, approximately 7 mm in diameter. Due to intractable pain, she is undergoing ureteroscopy with laser lithotripsy to remove the stone. Description of Procedure The patient was identified in the holding area and informed consent was confirmed. They were marked on the left side than were taken to the operating room. They were placed in the dorsal lithotomy position with all pressure points appropriately padded. They were prepped and draped in the usual sterile fashion. General anesthesia was initiated and a preoperative timeout was performed. A well-lubricated cystoscope was inserted per urethra and panendoscopy was performed. Her bladder was of normal size without trabeculations. There were no tumors or stones appreciated. Bilateral ureteral orifices were in orthotopic position. The left ureteral orifice was identified and cannulated with a 5 Mongolian open- ended catheter. A retrograde pyelogram was performed demonstrating the ureter was normal in course and caliber, with mild hydronephrosis of the kidney. The stone was not visualized, however there was some resistance as the 5 Mongolian catheter was advanced, suggesting the presence of the stone. A sensor wire was advanced to the level of the kidney under fluoroscopic guidance. With the assistance of a second sensor wire, to prop open the ureteral orifice, the semirigid ureteroscope was inserted and gently advanced into the distal ureter. At approximately the level of the pelvic brim, the ureteral stone was visualized. It was too large to remove with the wire basket so the 272 m holmium laser fiber was advanced the stone was fragmented to smaller pieces with laser lithotripsy. The Nitinol wire basket was then used to grasp the pieces and remove them to the level of the bladder. There was an area of the distal ureter which had small amount of edema versus scar tissue, which appeared irritated by the repeated passage of stones. Once the stones were removed from this area, the remainder of the ureter was surveyed. There were no stones through the entire ureter, but there was some edema. The cystoscope was reinserted over the wire, then a 6 Mongolian x 24 centimeter double-J ureteral stent was advanced. When the wire was removed, the proximal curl was visualized in the kidney with x-ray, and the distal curl visualized in the bladder with the cystoscope. The strings were left affixed to the stent to facilitate removal by the patient. Stones were evacuated from the bladder through the sheath and the cystoscope and was sent for stone analysis. At this point the bladder was drained and all instrumentation was removed. The loose ends of the strings were secured to her medial thigh using Mastisol and Steri- Strips. The patient was then awakened from anesthesia and was brought to the PACU in stable condition. I attest to the content of the Intraoperative Record and any orders documented therein. Any exceptions are noted below.
--- NOTE | 2021-04-07 17:01 | Fluoroscopy Report ---
FL retrograde includes kub CLINICAL HISTORY: LT LASER/LITHO. Left ureteral stent placement. COMPARISON STUDY: None. FLUOROSCOPY TIME: 8 seconds.. FINDINGS: A single fluoroscopic spot image of the abdomen and pelvis demonstrates a left ureteral bernie nt. Only the proximal portion of the stent is identified and appears in good position. IMPRESSION: Fluoroscopy provided for left ureteral stent placement. ACT 112: Negative or not required by law. Electronically signed by: Balwinder Beltran M.D. 04/07/2021 4:59 PM
--- NOTE | 2021-04-07 17:31 | Anesthesiology Progress Note ---
Date of Service April 07, 2021 Anesthesia Post Procedure Vital Signs Vital Signs: Temp Pulse Pulse Resp BP BP Pulse Ox 04/07/21 17:05 99.5 F 97 H 20 138/98 99 04/07/21 16:56 99.5 F 90 13 132/94 99 04/07/21 15:14 100.0 F H 93 H 14 102/65 95 04/07/21 07:30 98.8 F 83 18 107/72 97 04/06/21 22:29 98.8 F 80 16 115/58 L 96 Pain Intensity Left Flank: Pain Intensity: 5 Transfer of Care Handoff Completed per policy Notes Mental Status: alert / awake / arousable and participated in evaluation Patient Amnestic to Procedure: Yes Nausea / Vomiting: adequately controlled Pain: adequately controlled Airway Patency, RR, SpO2: stable & adequate BP & HR: stable & adequate Hydration State: stable & adequate Anesthetic Complications: no major complications apparent and Pt Satisfied with anesthetic care
[2021-04-07] MEDS: RIVAROXABAN 15 MG TAB PO SCH (18:10)
[2021-04-07] MEDS ORDERED: KETOROLAC TROMETHAMINE 15 MG/ML VIAL IV ONE (21:22)
[2021-04-07] MEDS ORDERED: HYDROCODONE/ACETAMOPHEN 5/325MG TAB PO STA (21:36)
[2021-04-07] MEDS: buPROPion SR 150 MG TABCR PO SCH (22:06)
[2021-04-08] MEDS ORDERED: HYDROCODONE/ACETAMOPHEN 5/325MG TAB PO STA (00:34)
[2021-04-08] MEDS ORDERED: HYDROmorphone INJ 0.5 MG/0.5 ML SYR IV STA (01:19)
[2021-04-08] MEDS ORDERED: HYDROmorphone INJ 0.5 MG/0.5 ML SYR ONE (01:25)
[2021-04-08] MEDS: HYDROmorphone INJ 0.5 MG/0.5 ML SYR IV PRN ×2 (03:31→07:54)
[2021-04-08 07:34] LABS: Hematocrit (blood only) 36.8 % (37-47); Hemoglobin 12.9 g/dL (12.0-16.0); Mean Corpuscular Hgb Conc 35.1 g/dL (32-36); Mean Corpuscular Volume 97.1 fL (80-100); Mean Platelet Volume 9.9 fL (7.4-10.4); Platelet Count 160 K/uL (130-400); RDW Coefficient of Variation 12.3 % (11.5-14.5); RDW Standard Deviation 43.7 fL (36.4-46.3); Red Blood Count 3.79 M/uL (4.2-5.4); White Blood Count 8.13 K/uL (4.8-10.8)
[2021-04-08] MEDS: DOCUSATE SODIUM/SENNA 50/8.6MG TAB PO SCH ×2 (07:57→21:10)
[2021-04-08] MEDS: TOPIRAMATE 100 MG TAB PO SCH ×2 (07:57→21:09)
[2021-04-08] MEDS: TAMSULOSIN HCL 0.4 MG CAP PO SCH (07:57)
[2021-04-08] MEDS: PANTOprazole 40 MG TAB PO SCH (07:57)
[2021-04-08] MEDS: FLUoxetine HCL 20 MG CAP PO SCH (07:58)
[2021-04-08 08:10] LABS: BUN Creatinine Ratio 13.5 (10-20); Calcium 8.6 mg/dl (8.5-10.1); Creatinine Clr Calc Pharmacy 70.6 ml/min; Est GFR (African American) 79.1 ml/min; Est GFR (Non-African American) 68.2 ml/min; Potassium 3.7 mmol/L (3.5-5.1)
--- NOTE | 2021-04-08 08:11 | Urology Progress Note ---
Date of Service April 08, 2021 Assessment & Plan (1) Acute left flank pain: (2) Hydronephrosis with urinary obstruction due to ureteral calculus: Plan: 50 year-old female patient, with multiple comorbidities, admitted with intractable left flank pain secondary to obstructing 7 mm calculus of the left mid ureter. -POD #1 cystoscopy, left ureteronephroscopy, retrograde pyelogram, laser lithotripsy, stone basket extraction, and left ureteral stent placement with Dr. Rothman. -Patient remains afebrile. -Labs reviewed - white count and creatinine normal. -Final urine culture with three types of organisms present, all low counts probable skin gab. -Recommend continuing Tamsulosin, will add PRN Pyridium and Oxybutynin to medication regimen. -Continue with supportive care, pain control, hydration. -Okay to discharge home from perspective if pain controlled and medically stable. -Recommend home with Tamsulosin, pain control, PRN Pyridium and PRN Oxybutynin. -Patient was given instructions by Dr. Rothman for stent removal. Strings were left on the stent so she can remove it at home, and she was instructed to do so on 04/12 or 04/13. -Will arrange follow-up with urology service for continued post operative care. -Expected clinical course reviewed with patient, all questions answered. Thank you for allowing us to participate in the acute care of Mrs. Pierce. Please reconsult us with additional questions, concerns or changes in patient status. Admission and Anticipated Discharge Date Admission Date: April 05, 2021 Subjective POD #1 cystoscopy, left ureteronephroscopy, retrograde pyelogram, laser lithotripsy, stone basket extraction, and left ureteral stent placement with Dr. Rothman. Patient examined at bedside. Does appear mildly uncomfortable. Recently received dose of IV Dilaudid for pain control. Reports pain in left flank, left lower back area. Reports dysuria. Denies hematuria. Denies urinary urgency/frequency. Subjectively reports fevers. Denies chills. Reports nausea, denies vomiting. Has been ambulating without difficulty. Chart review: Afebrile. Wbc 8.13 Hgb 12.9 Creatinine 0.98 Final urine culture three types of organisms present, all low counts probable skin gab. Denies additional urologic concerns today. Review of Systems Constitutional: as per Subjective / HPI; no chills Respiratory: no cough and no dyspnea Cardiovascular: no edema Gastrointestinal: as per Subjective / HPI and + nausea; no vomiting Genitourinary: as per Subjective / HPI Physical Exam Constitutional: well developed and well nourished; not ill appearing and + uncomfortable (Mildly uncomfortable) Respiratory: normal respiratory effort and able to speak in complete sentences; no respiratory distress and no audible wheezes Gastrointestinal (Abdomen): Inspection/Auscultation: abdomen normal to inspection; abdomen not distended Percussion/Palpation: + abdomen tender (Diffuse tenderness to abdomen) and abdomen soft; no guarding Psychiatric: Orientation: alert, oriented x 3 and cooperative Affect: euthymic affect Genitourinary: + CVA tenderness (left) Results & Data ([facility]) Vital Signs (Past 12 Hours) Vital Signs Temp Pulse Resp BP Pulse Ox 04/08/21 03:01 36.8 C 101 H 16 109/71 95 04/07/21 22:15 37.1 C 93 H 16 117/73 94 PG Care Time/CCT Total # of Minutes Spent Total Time Spent with Patient: Total time spent is greater than 50% in coordination of care (as documented) at patient's floor/unit and/or counseling patient: Coding Level of Care Code 55929 Subseq Hosp Care Lvl 2 Diagnoses Acute left flank pain R10.9 Hydronephrosis with urinary obstruction due to ureteral calculus N13.2
[2021-04-08] MEDS ORDERED: PHENAZOPYRIDINE HCL 200 MG TAB PO PRN (08:14)
[2021-04-08] MEDS: OXYBUTYNIN CHLORIDE 5 MG TAB PO PRN (10:36)
[2021-04-08] MEDS ORDERED: BELLADONNA/OPIUM SUPP 60 MG SUPP PR ONE (10:49)
[2021-04-08] MEDS: HYDROCODONE/ACETAMOPHEN 5/325MG TAB PO PRN ×2 (10:56→17:51)
[2021-04-08] MEDS: LORazepam 0.5 MG TAB PO PRN ×2 (11:41→21:08)
[2021-04-08] MEDS: PHENAZOPYRIDINE HCL 200 MG TAB PO SCH ×2 (15:48→21:07)
[2021-04-08] MEDS: RIVAROXABAN 15 MG TAB PO SCH (15:49)
--- NOTE | 2021-04-08 16:06 | Hospitalist Progress Note ---
Date of Service April 08, 2021 Assessment & Plan (1) Hydronephrosis with urinary obstruction due to ureteral calculus: Plan: This is a 50-year-old female with PMH of recurrent DVT on Xarelto, seizure disorder, history of factor V Leiden, asthma, tobacco use, chronic pain on narcotics and other medical problems listed below who presents with worsening left lower back pain since this morning and was found to have obstructive ureteral stone. CT abd/pelvis with mild left-sided hydroureteronephrosis secondary to an obstructing 7 mm calculus of the left ureter at the level of L3-L4 POD # 1 s/p Cystoscopy, Left Ureteronephroscopy, Retrograde Pyelogram, Laser Lit hotripsy, Stone Basket Extraction, Stent Placement(Left) by Dr. Rothman Patient was given instructions by Dr. Rothman for stent removal. Strings were left on the stent so she can remove it at home and she was instructed to do so on 04/12 or 04/13 Urology to arrange for outpatient follow up No growth on urine culture. Did receive preop abx from urology Dilaudid discontinued post-operatively. Discussed that moving forward will control pain with PO medications only to prepare for discharge home Also received B&O suppository x 1 Continue home Copan Q6H PRN. Continue Flomax daily, scheduled Pyridium, oxybutynin Does not use nsaids due to history of DVT on Xarelto Continue bowel regimen (2) Recurrent deep vein thrombosis (DVT): Plan: H/o Factor V Leiden, on chronic anticoagulation with Xarelto Per Dr. Rothman, patient okay to continue Xarelto (3) Seizure disorder: Plan: No seizure history in ten years. Continue Topamax (4) Depression: Plan: mood stable Continue bupropion, fluoxetine (5) Anxiety: Plan: Continue fluoxetine, Ativan PRN (6) Tobacco use: Plan: Cessation education. Offered nicotine patch DVT Ppx: Xarelto Code status: FULL PCP: [facility] Dispo: Admitted to med/surg, nv for D/C from urological standpoint. Patient seen in collaboration with Dr. Man. Please see addendum. Admission and Anticipated Discharge Date Admission Date: April 05, 2021 Supervising Physician Co-Signing Physician Notes I have seen and examined the patient and have discussed the case with the provider above. I agree with the assessment and plan as stated. she is having some stent pain and doesn't feel well enough to go home at this point. Cautious with opiate administration in this patient-stopped all IV narcotics, especially dilaudid. Using methods above to achieve increased comfort. She is not cooperative with my exam and is lying in bed on her side. Lungs clear to auscul tation. I could not examine her abdomen. Continue to help her with appropriate expectations for post-operative discomfort from stent and palliate until she feels well enough to return home. DO Nilsa Man Seen and examined in [id number]. Patient postop day 1 status post stone removal with left stent placement by Dr. Rothman. Reporting pain in left flank and left lower back area as well as increased urinary frequency and dysuria since stent was placed. Received a few as needed doses of IV Dilaudid overnight in addition to PRN Copan, pyridium, flomax and oxybutynin. Discussed plan with urology at bedside. Denies fever, chills, headache, chest pain, shortness of breath, nausea, vomiting, diarrhea or constipation. Review of Systems Review of Systems: At least ten systems reviewed and negative except as noted in the HPI. Physical Exam Physical Exam: Gen: WD/WN, sitting in bed, A&Ox3, tearful, anxious and angry intermittently HEENT: Normocephalic, atraumatic, conjunctivae moist, sclerae anicteric, mucous membranes moist Lung: Clear to Auscultation bilaterally, no wheezes/rales/rhonchi Heart: Regular rate, regular rhythm, no murmurs, rubs, or gallops Abdomen/: Soft, TTP in L flank, lower abdomen into suprapubic area, ND +BS x 4 Extremities: no edema Skin: Warm, no rash Results & Data Results & Data ([facility]) Vital Signs (Past 12 Hours) Vital Signs Temp Pulse Resp BP Pulse Ox 04/08/21 11:30 36.9 C 75 20 95/56 L 95 04/08/21 08:10 36.7 C 82 20 96/59 L 95 Laboratory Results Short CBC 04/08/21 Range/Units 07:13 WBC 8.13 (4.8-10.8) K/uL Hgb 12.9 (12.0-16.0) g/dL Hct 36.8 L (37-47) % Plt Count 160 (130-400) K/uL BMP 04/08/21 07:13 Sodium 143 Potassium 3.7 Chloride 114 H Carbon Dioxide 23 BUN 13 Creatinine 0.98 Glucose 133 H Calcium 8.6 Diagnostic Findings Abdomen/Pelvis CT 04/05/21 16:[address] WITHOUT CONTRAST CT DOSE: 519.95 mGy.cm HISTORY: Acute severe left-sided flank pain flank pain TECHNIQUE: Multiaxial CT images of the abdomen and pelvis were performed without contrast. A dose lowering technique was utilized adhering to the principles of ALARA. COMPARISON STUDY: CT abdomen and pelvis 08/10/2019, CTA chest 10/26/2018. FINDINGS: Clear lung bases. 5 mm fissural nodule of the right lung base on image 11 series 3 is unchanged from the 2019 comparison suggestive of a benign lymph node. No pneumatosis or pneumoperitoneum. The imaged inferior cardiac chambers are unremarkable. The unenhanced spleen, pancreas and adrenal glands are unremarkable. Cholecystectomy. Hepatic steatosis. Mild left-sided hydroureteronephrosis secondary to an obstructing bilobed 6 x 5 x 7 mm calculus of the left ureter at the level of L3-L4. Minimal perinephric and periureteral inflammatory stranding. Unremarkable right kidney, urinary bl adder, uterus and adnexa. Inguinal chain lymph nodes measuring up to 9 mm are likely reactive. Aorta and IVC are unremarkable. No bowel obstruction or bowel wall thickening. No ascites or mesenteric inflammation. Colonic diverticulosis without acute diverticulitis. Normal appendix. Diastases recti with tiny fat filled periumbilical hernia. There is no acute fracture. IMPRESSION: 1. Mild left-sided hydroureteronephrosis secondary to an obstructing 7 mm calculus of the left ureter at the level of L3-L4. 2. No bowel obstruction or bowel wall thickening. 3. Hepatic steatosis. 4. Colonic diverticulosis. ACT 112: Negative or not required by law. The above report was generated using voice recognition software. It may contain grammatical, syntax or spelling errors. Electronically signed by: Angelo Valdez M.D. 04/05/2021 5:03 PM Chest X-Ray 04/06/21 09:42 XR chest 2V PA/lateral HISTORY: 50 years-old Female preop preoperative exam. No acute chest complaints COMPARISON: Chest radiographs 11/08/2018, CT abdomen and pelvis 04/05/2021 TECHNIQUE: PA and lateral views of the chest FINDINGS: Cardiac mediastinal and hilar silhouettes are within normal limits. No pneumothorax, pleural effusion, airspace consolidation or overt pulmonary edema. Mild linear subsegmental atelectasis of the left lung base. No acute fracture. Cholecystectomy. IMPRESSION: No acute process. ACT 112: Negative or not required by law. The above report was generated using voice recognition software. It may contain grammatical, syntax or spelling errors. Electronically signed by: Angelo Valdez M.D. 04/06/2021 1:34 PM Retrograde Pyelogram 04/07/21 13:35 FL retrograde includes kub CLINICAL HISTORY: LT LASER/LITHO. Left ureteral stent placement. COMPARISON STUDY: None. FLUOROSCOPY TIME: 8 seconds.. FINDINGS: A single fluoroscopic spot image of the abdomen and pelvis demonstrates a left ureteral stent. Only the proximal portion of the stent is identified and appears in good position. IMPRESSION: Fluoroscopy provided for left ureteral stent placement. ACT 112: Negative or not required by law. Electronically signed by: Balwinder Beltran M.D. 04/07/2021 4:59 PM
[2021-04-08] MEDS: buPROPion SR 150 MG TABCR PO SCH (20:54)
[2021-04-09] MEDS: HYDROCODONE/ACETAMOPHEN 5/325MG TAB PO PRN ×4 (03:53→18:09)
[2021-04-09] MEDS ORDERED: HYDROmorphone INJ 0.5 MG/0.5 ML SYR IV STA (04:10)
[2021-04-09 08:43] LABS: Hematocrit (blood only) 40.4 % (37-47); Hemoglobin 14.1 g/dL (12.0-16.0); Mean Corpuscular Hemoglobin 34.1 pg (25-34); Mean Corpuscular Hgb Conc 34.9 g/dL (32-36); Mean Corpuscular Volume 97.8 fL (80-100); Mean Platelet Volume 10.5 fL (7.4-10.4); Platelet Count 185 K/uL (130-400); RDW Coefficient of Variation 12.6 % (11.5-14.5); RDW Standard Deviation 45.1 fL (36.4-46.3); Red Blood Count 4.13 M/uL (4.2-5.4); White Blood Count 8.21 K/uL (4.8-10.8)
[2021-04-09] MEDS: LORazepam 0.5 MG TAB PO PRN ×2 (08:57→23:35)
[2021-04-09 09:00] LABS: BUN Creatinine Ratio 16.8 (10-20); Calcium 8.1 mg/dl (8.5-10.1); Creatinine Clr Calc Pharmacy 65.2 ml/min; Est GFR (African American) 71.9 ml/min; Potassium 3.7 mmol/L (3.5-5.1)
[2021-04-09] MEDS: TOPIRAMATE 100 MG TAB PO SCH ×2 (10:18→19:37)
[2021-04-09] MEDS: TAMSULOSIN HCL 0.4 MG CAP PO SCH (10:19)
[2021-04-09] MEDS: DOCUSATE SODIUM/SENNA 50/8.6MG TAB PO SCH ×2 (10:19→19:36)
[2021-04-09] MEDS: PHENAZOPYRIDINE HCL 200 MG TAB PO SCH ×3 (10:19→19:38)
[2021-04-09] MEDS: PANTOprazole 40 MG TAB PO SCH (10:19)
[2021-04-09] MEDS: FLUoxetine HCL 20 MG CAP PO SCH (10:20)
--- NOTE | 2021-04-09 11:13 | Hospitalist Progress Note ---
Date of Service April 09, 2021 Assessment & Plan (1) Hydronephrosis with urinary obstruction due to ureteral calculus: Plan: CT abd/pelvis with mild left-sided hydroureteronephrosis secondary to an obstructing 7 mm calculus of the left ureter at the level of L3-L4 POD # 1 s/p Cystoscopy, Left Ureteronephroscopy, Retrograde Pyelogram, Laser Lithotripsy, Stone Basket Extraction, Stent Placement(Left) by Dr. Rothman Patient was given instructions by Dr. Rothman for stent removal. Strings were left on the stent so she can remove it at home and she was instructed to do so on 04/12 or 04/13 Urology to arrange for outpatient follow up No growth on urine culture. Did receive preop abx from urology Dilaudid discontinued post-operatively. Discussed that moving forward will control pain with PO medications only to prepare for discharge home Also received B&O suppository x 1 Continue home [place] Q6H PRN. Continue Flomax daily, scheduled Pyridium, oxybutynin Does not use nsaids due to history of DVT on Xarelto, however, one or two doses would be fine for severe pain in lieu of giving IV dilaudid. Continue bowel regimen (2) Recurrent deep vein thrombosis (DVT): Plan: H/o Factor V Leiden, on chronic anticoagulation with Xarelto (3) Seizure disorder: Plan: No seizure history in ten years. Continue Topamax per home regimen. (4) Depression: Plan: Tearful, sarcastic disposition 2/2 uncontrolled pain. cont chronic norco per home regimen to avoid withdrawal. Continue bupropion, fluoxetine per home regimen. Cont palliative measures as above. (5) Anxiety: Plan: Continue fluoxetine, Ativan PRN per home regimen. (6) Tobacco use: Plan: Cessation education. Offered nicotine patch (7) DVT prophylaxis: Plan: DVT Ppx: Xarelto Code status: FULL Dispo: Admitted to med/surg, ok for D/C from urological standpoint. Beatriz Man DO [facility] Hospitalist Admission and Anticipated Discharge Date Admission Date: April 05, 2021 Subjective 50 yo F with left ureteral stone s/p removal and stent placement on 04/07 still is reporting severe stent pain, nancy triggered by urination she isn't sure what is helping her pain we discussed that intravenous dilaudid is not a good option at this point for several reasons. She is already on opiates, and should try this first. IV narcotics don't last long and have a higher risk of side effects. We decided on trying a B&O suppository. If not working, she will take a norco. Continues on the ditropan and pyridium She is reporting incomplete urination with voiding attempts. she reports last stent required her to be hospitalized until this was removed. 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 Physical Exam Physical Exam: CONSTITUTIONAL: WNWD, vitals as above, generally well-cesario earing EYES: normal conjunctivae, no scleral icterus ENT: external ear and nose normal, MMM NECK: trachea midline RESPIRATORY: clear to auscultation bilaterally, no crackles, rales or wheezes, normal respiratory effort CARDIOVASCULAR: regular rate and rhythm, S1 and 2 heard without murmurs, gallops or rubs, no JVD, no peripheral edema GASTROINTESTINAL: patient refused assessment, L CVA tenderness MUSCULOSKELETAL: strength 5/5 throughout, head is normocephalic and atraumatic SKIN: warm and dry NEUROLOGIC: CN 2-12 grossly intact, normal cognition, normal speech, no tremor PSYCHIATRIC: alert cooperative and oriented to person, place and time. Results & Data Results & Data ([facility]) Vital Signs (Past 12 Hours) Vital Signs Temp Pulse Resp BP Pulse Ox 04/09/21 07:20 36.9 C 74 20 122/74 93 Laboratory Results Short CBC 04/09/21 Range/Units 07:59 WBC 8.21 (4.8-10.8) K/uL Hgb 14.1 (12.0-16.0) g/dL Hct 40.4 (37-47) % Plt Count 185 (130-400) K/uL BMP 04/09/21 07:59 Sodium 143 Potassium 3.7 Chloride 116 H Carbon Dioxide 22 BUN 18 Creatinine 1.06 Glucose 91 Calcium 8.1 L Medications Administered Current Inpatient Medications Hydrocodone Bitart/Acetaminophen (Hydrocodone/Acetamophen 5/325mg Tab) 1 tab PO Q6H PRN PRN Reason: Pain Stop: 04/19/21 20:49 Last Admin: 04/09/21 08:57 Dose: 1 tab Documented by: Albuterol (Albuterol Hfa 8 Gm Inhaler) 2 puffs INH QID PRN PRN Reason: Shortness Of Breath Or Wheezing Stop: 05/05/21 20:49 Bupropion HCl (Bupropion Sr 150 Mg Tabcr) 150 mg PO HS ON LICENSE OF [facility] Stop: 05/05/21 20:59 Last Admin: 04/08/21 20:54 Dose: Not Given Documented by: Dicyclomine HCl (Dicyclomine Hcl 20 Mg Tab) 20 mg PO TID PRN PRN Reason: .IBS Stop: 05/05/21 20:49 Last Admin: 04/06/21 08:26 Dose: 20 mg Documented by: Docusate Sodium (Docusate Sodium 100 Mg Cap) 100 mg PO BID PRN PRN Reason: Constipation Stop: 05/05/21 20:57 Fluoxetine HCl (Fluoxetine Hcl 20 Mg Cap) 40 mg PO QAM ON LICENSE OF [facility] Stop: 05/06/21 08:59 Last Admin: 04/09/21 10:20 Dose: 40 mg Documented by: Hydromorphone HCl (Hydromorphone Inj 0.5 Mg/0.5 Ml Syr) 0.5 mg IV Q3H PRN PRN Reason: Pain Stop: 04/22/21 02:42 Last Admin: 04/08/21 07:54 Dose: 0.5 mg Documented by: Lorazepam (Lorazepam 0.5 Mg Tab) 0.5 mg PO TID PRN PRN Reason: Anxiety Stop: 05/05/21 20:49 Last Admin: 04/09/21 08:57 Dose: 0.5 mg Documented by: Naloxone HCl (Naloxone Hcl 0.4 Mg/1 Ml Vial/Carp) 0.1 mg IV Q5M PRN; Protocol PRN Reason: Oversedation/Resp Depression Stop: 04/20/21 10:07 Ondansetron HCl (Ondansetron Inj 2 Mg/Ml 2 Ml Vial) 4 mg IV Q4H PRN PRN Reason: Nausea Stop: 05/06/21 08:54 Last Admin: 04/07/21 11:59 Dose: 4 mg Documented by: Oxybutynin Chloride (Oxybutynin Chloride 5 Mg Tab) 5 mg PO BID PRN PRN Reason: bladder spasms Stop: 05/08/21 08:59 Last Admin: 04/08/21 10:36 Dose: 5 mg Documented by: Pantoprazole Sodium (Pantoprazole 40 Mg Tab) 40 mg PO DAILY ON LICENSE OF [facility] Stop: 05/06/21 08:59 Last Admin: 04/09/21 10:19 Dose: 40 mg Documented by: Phenazopyridine HCl (Phenazopyridine Hcl 200 Mg Tab) 200 mg PO TID ON LICENSE OF [facility] Stop: 05/08/21 13:59 Last Admin: 04/09/21 10:19 Dose: 200 mg Documented by: Rivaroxaban (Rivaroxaban 15 Mg Tab) 15 mg PO QDD ON LICENSE OF [facility] Stop: 05/06/21 16:29 Last Admin: 04/08/21 15:49 Dose: 15 mg Documented by: Senna/Docusate Sodium (Docusate Sodium/Senna 50/8.6mg Tab) 1 tab PO BID ON LICENSE OF [facility] Stop: 05/06/21 20:59 Last Admin: 04/09/21 10:19 Dose: 1 tab Documented by: Tamsulosin HCl (Tamsulosin Hcl 0.4 Mg Cap) 0.4 mg PO QAM ON LICENSE OF [facility] Stop: 05/06/21 08:59 Last Admin: 04/09/21 10:19 Dose: 0.4 mg Documented by: Topiramate (Topiramate 100 Mg Tab) 200 mg PO BID ON LICENSE OF [facility] Stop: 05/05/21 20:59 Last Admin: 04/09/21 10:18 Dose: 200 mg Documented by:
[2021-04-09] MEDS: ONDANSETRON INJ 2 MG/ML 2 ML VIAL IV PRN (12:42)
[2021-04-09] MEDS: OXYBUTYNIN CHLORIDE 5 MG TAB PO PRN (13:37)
[2021-04-09] MEDS ORDERED: BELLADONNA/OPIUM SUPP 60 MG SUPP PR STA (14:08)
[2021-04-09] MEDS: RIVAROXABAN 15 MG TAB PO SCH (18:09)
[2021-04-09] MEDS: buPROPion SR 150 MG TABCR PO SCH (19:38)
[2021-04-10] MEDS: HYDROCODONE/ACETAMOPHEN 5/325MG TAB PO PRN ×3 (02:58→16:40)
[2021-04-10] MEDS: BELLADONNA/OPIUM SUPP 60 MG SUPP PR PRN ×2 (06:14→19:36)
[2021-04-10] MEDS: FLUoxetine HCL 20 MG CAP PO SCH (09:24)
[2021-04-10] MEDS: PANTOprazole 40 MG TAB PO SCH (09:24)
[2021-04-10] MEDS: TOPIRAMATE 100 MG TAB PO SCH ×2 (09:24→22:02)
[2021-04-10] MEDS: TAMSULOSIN HCL 0.4 MG CAP PO SCH (09:24)
[2021-04-10] MEDS: PHENAZOPYRIDINE HCL 200 MG TAB PO SCH ×3 (09:25→22:02)
[2021-04-10] MEDS: DOCUSATE SODIUM/SENNA 50/8.6MG TAB PO SCH ×2 (09:25→22:01)
--- NOTE | 2021-04-10 13:53 | Hospitalist Progress Note ---
Date of Service April 10, 2021 Assessment & Plan (1) Hydronephrosis with urinary obstruction due to ureteral calculus: Plan: CT abd/pelvis with mild left-sided hydroureteronephrosis secondary to an obstructing 7 mm calculus of the left ureter at the level of L3-L4 POD # 1 s/p Cystoscopy, Left Ureteronephroscopy, Retrograde Pyelogram, Laser Lithotripsy, Stone Basket Extraction, Stent Placement(Left) by Dr. Rothman Patient was given instructions by Dr. Rothman for stent removal. Strings were left on the stent so she can remove it at home and she was instructed to do so on 04/12 or 04/13 Urology to arrange for outpatient follow up No growth on urine culture. Did receive preop abx from urology Dilaudid discontinued post-operatively. Discussed that moving forward will control pain with PO medications only to prepare for discharge home Also received B&O suppository PRN with some improvement. No extra opiates required in last 24 hours except for her typical [place]. Continue home [place] Q6H PRN. Continue Flomax daily, scheduled Pyridium, oxybutynin stopped in setting of ?urinary retention issues. Does not use nsaids due to history of DVT on Xarelto, however, one or two doses would be fine for severe pain in lieu of giving IV dilaudid. Continue bowel regimen (2) Urinary incontinence: Plan: Started yesterday around the time she mentioned having urinary retention (holding 200cc of urine after voiding). Nurse who had her on sunday also had documented that she was having pain with urination (seemed to be typical stent pain) and as a result she was withholding urine. She bladder scanned her for 200cc at that time. (3) Recurrent deep vein thrombosis (DVT): Plan: H/o Factor V Leiden, on chronic anticoagulation with Xarelto (4) Seizure disorder: Plan: No seizure history in ten years. Continue Topamax per home regimen. (5) Depression: Plan: Tearful, sarcastic disposition 2/2 uncontrolled pain. cont chronic norco per home regimen to avoid withdrawal. Continue bupropion, fluoxetine per home regimen. Cont palliative measures as above. (6) Anxiety: Plan: Continue fluoxetine, Ativan PRN per home regimen. (7) Tobacco use: Plan: Cessation education. Offered nicotine patch (8) DVT prophylaxis: Plan: DVT Ppx: Xarelto Code status: FULL Dispo: Admitted to [facility] for D/C from urological standpoint. DO Kenny [facility] Hospitalist Admission and Anticipated Discharge Date Admission Date: April 05, 2021 Subjective 50 yo F with left ureteral stone s/p removal and stent placement on 04/07 still is reporting severe stent pain that is constant reports that nothing is helping her pain, location L kidney had some incomplete voiding yesterday so her ditropan was stopped, last dose was 1330pm yesterday. Now she is stating she has no control of her urine. She doesn't know when it comes out. She isn't sure if she is completely voiding at this point. ROS is limited as patient is shrugging her shoulders and requires much prompting with questions to ascertain the above information. Review of Systems Review of Systems: At least ten systems were reviewed and negative except as indicated in HPI above. Physical Exam Physical Exam: CONSTITUTIONAL: WNWD, vitals as above, generally well- appearing EYES: normal conjunctivae, no scleral icterus ENT: external ear and nose normal, MMM NECK: trachea midline RESPIRATORY: clear to auscultation bilaterally, no crackles, rales or wheezes, normal respiratory effort CARDIOVASCULAR: regular rate and rhythm, S1 and 2 heard without murmurs, gallops or rubs, no JVD, no peripheral edema GASTROINTESTINAL: Left abdominal discomfort, L CVA tenderness MUSCULOSKELETAL: strength 5/5 throughout, head is normocephalic and atraumatic SKIN: warm and dry NEUROLOGIC: CN 2-12 grossly intact, normal cognition, sensation intact in perineal region per patient self assessment, normal speech, no tremor PSYCHIATRIC: alert and oriented. Results & Data Results & Data ([facility]) Vital Signs (Past 12 Hours) Vital Signs Temp Pulse Resp BP Pulse Ox 04/10/21 07:54 36.8 C 61 16 94/63 L 93 Medications Administered Current Inpatient Medications Hydrocodone Bitart/Acetaminophen (Hydrocodone/Acetamophen 5/325mg Tab) 1 tab PO Q6H PRN PRN Reason: Pain Stop: 04/19/21 20:49 Last Admin: 04/10/21 09:23 Dose: 1 tab Documented by: Albuterol (Albuterol Hfa 8 Gm Inhaler) 2 puffs INH QID PRN PRN Reason: Shortness Of Breath Or Wheezing Stop: 05/05/21 20:49 Belladonna Alkaloids/Opium (Belladonna/Opium Supp 60 Mg Supp) 60 mg ID Q12H PRN PRN Reason: stent pain/bladder spasms Stop: 04/23/21 14:06 Last Admin: 04/10/21 06:14 Dose: 60 mg Documented by: Bupropion HCl (Bupropion Sr 150 Mg Tabcr) 150 mg PO HS [facility] Stop: 05/05/21 20:59 Last Admin: 04/09/21 19:38 Dose: Not Given Documented by: Dicyclomine HCl (Dicyclomine Hcl 20 Mg Tab) 20 mg PO TID PRN PRN Reason: .IBS Stop: 05/05/21 20:49 Last Admin: 04/06/21 08:26 Dose: 20 mg Documented by: Docusate Sodium (Docusate Sodium 100 Mg Cap) 100 mg PO BID PRN PRN Reason: Constipation Stop: 05/05/21 20:57 Fluoxetine HCl (Fluoxetine Hcl 20 Mg Cap) 40 mg PO QAM [facility] Stop: 05/06/21 08:59 Last Admin: 04/10/21 09:24 Dose: 40 mg Documented by: Hydromorphone HCl (Hydromorphone Inj 0.5 Mg/0.5 Ml Syr) 0.5 mg IV Q3H PRN PRN Reason: Pain Stop: 04/22/21 02:42 Last Admin: 04/08/21 07:54 Dose: 0.5 mg Documented by: Lorazepam (Lorazepam 0.5 Mg Tab) 0.5 mg PO TID PRN PRN Reason: Anxiety Stop: 05/05/21 20:49 Last Admin: 04/09/21 23:35 Dose: 0.5 mg Documented by: Naloxone HCl (Naloxone Hcl 0.4 Mg/1 Ml Vial/Carp) 0.1 mg IV Q5M PRN; Protocol PRN Reason: Oversedation/Resp Depression Stop: 04/20/21 10:07 Ondansetron HCl (Ondansetron Inj 2 Mg/Ml 2 Ml Vial) 4 mg IV Q4H PRN PRN Reason: Nausea Stop: 05/06/21 08:54 Last Admin: 04/09/21 12:42 Dose: 4 mg Documented by: Oxybutynin Chloride (Oxybutynin Chloride 5 Mg Tab) 5 mg PO BID PRN PRN Reason: bladder spasms Stop: 05/08/21 08:59 Last Admin: 04/09/21 13:37 Dose: 5 mg Documented by: Pantoprazole Sodium (Pantoprazole 40 Mg Tab) 40 mg PO DAILY [facility] Stop: 05/06/21 08:59 Last Admin: 04/10/21 09:24 Dose: 40 mg Documented by: Phenazopyridine HCl (Phenazopyridine Hcl 200 Mg Tab) 200 mg PO TID [facility] Stop: 05/08/21 13:59 Last Admin: 04/10/21 09:25 Dose: 200 mg Documented by: Rivaroxaban (Rivaroxaban 15 Mg Tab) 15 mg PO QDD [facility] Stop: 05/06/21 16:29 Last Admin: 04/09/21 18:09 Dose: 15 mg Documented by: Senna/Docusate Sodium (Docusate Sodium/Senna 50/8.6mg Tab) 1 tab PO BID [facility] Stop: 05/06/21 20:59 Last Admin: 04/10/21 09:25 Dose: 1 tab Documented by: Tamsulosin HCl (Tamsulosin Hcl 0.4 Mg Cap) 0.4 mg PO QAM [facility] Stop: 05/06/21 08:59 Last Admin: 04/10/21 09:24 Dose: 0.4 mg Documented by: Topiramate (Topiramate 100 Mg Tab) 200 mg PO BID [facility] Stop: 05/05/21 20:59 Last Admin: 04/10/21 09:24 Dose: 200 mg Documented by:
[2021-04-10] MEDS: LORazepam 0.5 MG TAB PO PRN ×2 (14:01→22:01)
[2021-04-10] MEDS: RIVAROXABAN 15 MG TAB PO SCH (16:40)
[2021-04-10] MEDS: buPROPion SR 150 MG TABCR PO SCH (22:03)
[2021-04-11] MEDS: HYDROCODONE/ACETAMOPHEN 5/325MG TAB PO PRN (05:55)
[2021-04-11] MEDS: LORazepam 0.5 MG TAB PO PRN (05:55)
[2021-04-11] MEDS: BELLADONNA/OPIUM SUPP 60 MG SUPP PR PRN (08:00)
[2021-04-11] MEDS: DOCUSATE SODIUM/SENNA 50/8.6MG TAB PO SCH (09:51)
[2021-04-11] MEDS: FLUoxetine HCL 20 MG CAP PO SCH (09:55)
[2021-04-11] MEDS: TAMSULOSIN HCL 0.4 MG CAP PO SCH (09:56)
[2021-04-11] MEDS: TOPIRAMATE 100 MG TAB PO SCH (09:56)
[2021-04-11] MEDS: PANTOprazole 40 MG TAB PO SCH (09:56)
[2021-04-11] MEDS: PHENAZOPYRIDINE HCL 200 MG TAB PO SCH (09:56)
[2021-04-11 10:23] LABS: BUN Creatinine Ratio 21.3 (10-20); Calcium 8.6 mg/dl (8.5-10.1); Creatinine Clr Calc Pharmacy 71.3 ml/min; Est GFR (Non-African American) 69.1 ml/min; Potassium 3.6 mmol/L (3.5-5.1)
--- NOTE | 2021-04-11 16:06 | Discharge Summary ---
Date of Service April 11, 2021 Admission HPI Per Admitting Provider This is a 50-year-old female with PMH of recurrent DVT on Xarelto, seizure disorder, history of factor V Leiden, asthma, chronic pain on narcotics and other medical problems listed below who presents with worsening left lower back pain since this morning. Patient awoke with pain in left lower back that was worse after movement and showering. Pain then radiated around left flank and into the left suprapubic area. Patient endorses nausea but denies any vomiting. Poor appetite. History of recurrent kidney stones requiring intervention, most recently by Dr. Thompson of [facility]. Patient is on Xarelto for history of multiple DVTs in setting of clotting disorder. Denies any fever, chills, headache, lightheadedness, chest pain, shortness of breath, dysuria, diarrhea or constipation. Seizure disorder controlled on Topamax, denies any seizures for the past 10 years. Admission Exam Per Admitting Provider General Appearance: WD/WN, vitals as above, NAD, sitting up in bed, in acute pain, conversing without issue Head: normocephalic, atraumatic Eyes: normal inspection, PERRL, conjunctivae normal, anicteric sclerae ENT: external ear and nose normal, oropharynx normal Neck: normal visual inspection, trachea midline, no thyromegaly Respiratory: normal respiratory effort, lungs clear to auscultation, no wheeze, rales, rhonchi. No accessory muscle use Cardiovascular: regular rate, rhythm, no murmur, normal peripheral pulses, no BLE edema. Vessels: no JVD Chest: normal inspection of chest Abdomen/GI: normal bowel sounds, L flank pain with radiation to suprapubic area, no hepatosplenomegaly : + L CVA TTP Extremities/Musculoskeletal: no cyanosis or clubbing, extremities motor strength 5/5 Neurologic: PERRL, EOMI, accommodation nl, no face palsy, no dysarthria, CN's II-XI intact bilaterally and moves all extremities Psychiatric: A+Ox3, euthymic affect Skin: no rashes, normal color, warm/dry Principal Diagnosis Hydronephrosis with urinary obstruction due to ureteral calculus Discharge Exam Constitutional WD/WN, vitals as above no acute distress Respiratory normal respiratory effort, lungs clear to auscultation Cardiovascular Rate/Rhythm: regular rate and regular rhythm Vessels: normal peripheral pulses Extremities: no edema Gastrointestinal (Abdomen) Percussion/Palpation: abdomen soft; abdomen nontender Skin no rashes, warm and dry Neurologic no focal motor deficits Psychiatric A+Ox3, euthymic affect Genitourinary + CVA tenderness (left, mild) Discharge Data Allergies Allergy/AdvReac Type Severity Reaction Status Date / Time kiwi Allergy Severe ANAPHYLAXIS Verified 04/05/21 17:16 metronidazole Allergy Intermediate hives Verified 04/05/21 17:16 morphine Allergy Intermediate chest Verified 04/05/21 17:16 pain; trouble breathing tree nut Allergy Anaphylaxis Verified 04/05/21 17:16 prochlorperazine AdvReac Unknown SEVERE Verified 04/05/21 17:16 DYSTONIA Consultations Urology, Dr. Rothman Procedures Performed Operation Date: 04/07/21 13:35 Actual Procedures p Laser Lithotripsy, Stone Basket Extraction, (Left) - Roderick Rothman MD s Stent Placement(Left) - Roderick Rothman MD s Cystoscopy, Left Ureteronephroscopy, Retrograde Pyelogram, (Left) - Roderick Rothman MD Ordered Studies CT ABD/pelvis IMPRESSION 04/05/21: 1. Mild left-sided hydroureteronephrosis secondary to an obstructing 7 mm calculus of the left ureter at the level of L3-L4. 2. No bowel obstruction or bowel wall thickening. 3. Hepatic steatosis. 4. Colonic diverticulosis. Hospital Course (1) Hydronephrosis with urinary obstruction due to ureteral calculus: 50-year-old female with PMH of recurrent DVT on Xarelto, seizure disorder, history of factor V Leiden, asthma, chronic pain on narcotics and other medical problems listed below who presented with left lower back pain. CT abd/pelvis showed mild left-sided hydroureteronephrosis secondary to an obstructing 7 mm calculus of the left ureter at the level of L3-L4. Status post Cystoscopy, Left Ureteronephroscopy, Retrograde Pyelogram, Laser Lithotripsy, Stone Basket Extraction, Stent Placement(Left) by Dr. Rothman on 04/07. Stent was to remain in place until 04/13 however patient self removed on 04/10. No growth on urine culture. Required Dilaudid and B&O suppository postoperatively however was able to transition to routine home [place] for pain control. Also received oxybutynin while inpatient however was discontinued due to possible urinary retention issues. Patient is to continue Flomax daily for an additional 7 days. Follow- up with urology will be scheduled. Remainder of patient's chronic medical problems remained stable and patient is to continue all other home medications as previously prescribed. (2) Recurrent deep vein thrombosis (DVT): H/o Factor V Leiden, on chronic anticoagulation with Xarelto (3) Seizure disorder: No seizure history in ten years. Continue Topamax per home regimen. (4) Depression: Continue bupropion, fluoxetine per home regimen. (5) Anxiety: Continue fluoxetine, Ativan PRN per home regimen. Total Time Total Time Spent Total Time Spent (In Minutes): 35 Discharge Plan Discharge Items Patient Disposition: Home - Self-Care Reason For Visit: Obstructing Kidney Stone Discharge Diagnosis: Obstructing Kidney Stone Activity: Resume your previous activity Non-emergency contact: Primary Care Provider Call non-emergency contact if: you have any medication questions, your symptoms worsen, your pain is not controlled and you have a fever Follow-up/Referrals: Rula Turpin MD [Primary Care Provider] - 04/13/21 10:40 am (Date & Time 04/13/2021 10:40 AM Provider Paula Emerson MD Department General Internal Medicine [facility] ) Diet: Regular Addtl Attending Provider Instructions: You were admitted to the hospital for a kidney stone that was obstructing your kidney. You had a stent placed on 04/07 and the stent was removed on 04/10. Continue taking Flomax 0.4mg daily for 7 days. You can use your home [place] prescription for pain. Pyridium three times per day as needed is also being prescribed at discharge. Note that the Pyridium may turn your urine orange. If your pain worsens or you develop a fever, call your doctor or proceed to the emergency room. Keep follow up appointments as scheduled and continue all other medications as prescribed. It was a pleasure taking care of you. If you have any questions, you may reach a member of the [facility] Hospitalist team by calling [phone]. Addtl Office [employer] Supervisor Provider Instructions: Urology Follow-up Please take all medications as prescribed and keep all follow-ups as scheduled. Please call our office at [phone] with any questions, concerns or need to reschedule appointments for any reason. We are happy to assist you. The urology office will contact you to schedule a follow-up appointment. When to call [facility] Urology at [phone]: Fever of 101F or higher Heavy bleeding Pain that is not controlled with medicine Uncontrolled vomiting Problems urinating or inability to urinate Pending Studies at Discharge: No Stand-Alone Forms: My UMicIt, Smoking Cessation Medications and DC Order Prescriptions: New tamsulosin 0.4 mg Capsule 0.4 mg PO QAM Qty: 7 RF: 0 phenazopyridine [Pyridium] 200 mg Tablet 200 mg PO TID PRN (Reason: pain) Qty: 12 RF: 0 Continued sumatriptan succinate 50 mg tablet 50 mg PO UD PRN (Reason: Migraine Headache) RF: 0 lorazepam 0.5 mg tablet 0.5 mg PO TID PRN (Reason: Anxiety) RF: 0 topiramate 200 mg tablet 200 mg PO BID RF: 0 albuterol sulfate 90 mcg/actuation Hfa Aerosol Inhaler 2 puff INHALATION QID PRN (Reason: Shortness Of Breath Or Wheezing) RF: 0 fluoxetine 40 mg capsule 40 mg PO QAM RF: 0 Xarelto 15 mg tablet 15 mg PO DAILY RF: 0 trazodone 50 mg tablet 50 mg PO HS PRN (Reason: Sleep) RF: 0 docusate sodium 100 mg Tablet 100 mg PO BID PRN (Reason: Constipation) RF: 0 Probiotic 3 billion cell Capsule 0 mmu cells PO QAM RF: 0 ondansetron HCl [Zofran] 4 mg tablet 4 mg PO Q6H PRN (Reason: nausea and vomiting) Qty: 20 RF: 0 pantoprazole 40 mg tablet,delayed release (DR/EC) 40 mg PO DAILY Qty: 30 RF: 0 bupropion HCl [Wellbutrin SR] 150 mg tablet sustained-release 12 hr 150 mg PO HS RF: 0 hydrocodone-acetaminophen 5-325 mg tablet 1 tab PO Q6H PRN (Reason: Pain) RF: 0 Trintellix 5 mg tablet 5 mg PO DAILY RF: 0 dicyclomine 20 mg tablet 20 mg PO TID PRN (Reason: .IBS) RF: 0 Discharge Orders: Discharge Order (Routine); Ordered 04/11/21 Ordered By: Zakia Crouch/Other Patient Handouts: Understanding Kidney Stones, Preventing Kidney Stones Admission Data Admit Date/Time: 04/05/21 17:48 Attending Provider: Beatriz Man Admit Provider: Beatriz Man Primary Care Provider: Rula Turpin Other Providers: Gracy Haley ; Beatriz Man ; Roderick Rothman Other Interventions: Discharge Summary Assessment (RN) Last Done: 04/11/21 11:38
[2021-04-13 00:33] LABS: Component 2 DNR; Source KIDNEY
== END 2021-04-11 13:15 | disposition home or self-care (01) | DRG 660 ==
LOC: ED 14:37 → 3N 17:48

== ENCOUNTER 2021-06-10 08:30 | Inpatient (IN) ==
[2021-06-10] MEDS ORDERED: HYDROmorphone INJ 0.5 MG/0.5 ML SYR IV STA ×2 (08:51→10:04)
[2021-06-10 09:13] LABS: Basophils # (auto) 0.01 K/uL (0-0.2); Basophils % (auto) 0.2 %; Hematocrit (blood only) 41.9 % (37-47); Hemoglobin 14.4 g/dL (12.0-16.0); Immature Granulocytes # (auto) 0.02 K/uL (0.00-0.02); Immature Granulocytes % (auto) 0.3 %; Lymphocytes # (auto) 2.39 K/uL (1.2-3.4); Lymphocytes % (auto) 36.3 %; Mean Corpuscular Hemoglobin 33.7 pg (25-34); Mean Corpuscular Hgb Conc 34.4 g/dL (32-36); Mean Corpuscular Volume 98.1 fL (80-100); Mean Platelet Volume 10.4 fL (7.4-10.4); Monocytes # (auto) 0.49 K/uL (0.11-0.59); Monocytes % (auto) 7.4 %; Neutrophils # (auto) 3.47 K/uL (1.4-6.5); Neutrophils % (auto) 52.8 %; Platelet Count 176 K/uL (130-400); RDW Coefficient of Variation 12.4 % (11.5-14.5); RDW Standard Deviation 44.1 fL (36.4-46.3); Red Blood Count 4.27 M/uL (4.2-5.4); White Blood Count 6.58 K/uL (4.8-10.8)
[2021-06-10 09:38] LABS: Potassium 4.1 mmol/L (3.5-5.1)
[2021-06-10 09:39] LABS: Albumin Level 3.6 gm/dl (3.4-5.0); BUN Creatinine Ratio 17.6 (10-20); Bilirubin,Total 0.3 mg/dl (0.2-1); Calcium 8.4 mg/dl (8.5-10.1); Creatinine Clr Calc Pharmacy 73.8 ml/min; Est GFR (African American) 85.3 ml/min; Est GFR (Non-African American) 73.6 ml/min; Globulin 3.6 gm/dl (2.5-4.0); Total Protein 7.2 gm/dl (6.4-8.2)
[2021-06-10] MEDS ORDERED: ONDANSETRON INJ 2 MG/ML 2 ML VIAL IV STA (10:04)
--- NOTE | 2021-06-10 10:05 | Ultrasound Report ---
LEFT LOWER EXTREMITY VENOUS DOPPLER HISTORY: left leg increased pain/swelling, hx dvt COMPARISON STUDY: Left leg venous Doppler 05/30/2021. FINDINGS: There again noted scattered areas of linear echogenic stranding seen within the left common femoral, superficial femoral, and popliteal veins. These demonstrate normal compressibility. Therefo re, this is consistent with chronic nonocclusive thrombus. The anterior tibial vein is patent. No def inite flow identified within within the majority of the left posterior tibial and peroneal veins cons istent with thrombus. This appears new from the prior study. IMPRESSION: 1. No change in the chronic nonocclusive thrombus within the left lower extremities described above. 2. Interval development of acute DVT within the left posterior tibial and peroneal veins. ACT 112: Negative or not required by law. Electronically signed by: Balwinder Beltran M.D. 06/10/2021 10:04 AM
[2021-06-10] MEDS ORDERED: Heparin IV Adult Wt-Based Standard *NO* Bolus Protocol ONE (10:41)
--- NOTE | 2021-06-10 10:49 | History & Physical Report ---
Date of Service June 10, 2021 Assessment & Plan (1) Acute deep vein thrombosis of left lower extremity: Plan: - Admit to tele - Will place on heparin gtt for now, hold home xarelto - Consult hematology - will need to discuss home regimen of recurrent DVT and failure on coumadin and xarelto - Consider discussion with vascular regarding placement of IVC filter - CTA is negative for PE - No EKG changes per review (2) History of factor V Leiden mutation: Plan: - Hx of such,first DVT occurred at age 18 and was placed on coumadin at that time - Follow with outpt heme - follow up after discharge (3) Anxiety: Plan: - May continue lorazepam as needed for anxiety (4) Tobacco use: Plan: -Patient has smoked throughout her adult life on and off, smoking cessation encouraged at bedside, denies need for nicotine patch DVT prophylaxis: - teds, ambulatory, heparin drip CODE: Full code Dispo: From home, likely to remain in the hospital x 1-2 days History of Present Illness Primary Care Provider: Rula Turpin MD This is a 50 yo F with PMHx of factor V Leiden, previous clotting while on Coumadin and now while on Xarelto. She initially presented to the ER on May 31 for left leg swelling and pain however at that time she was not found to have any occlusive clot and it was considered a age-indeterminate chronic venous thrombosis in the left leg on imaging. She was sent home, and encouraged to seek follow-up with her PCP. She represents today for worsening pain in the left lower leg and is found to have a new occlusive DVT in the left posterior tibial and peroneal veins. She follows with hematology through [facility] as an outpatient. She has previously clotted while on Coumadin and now while on Xarelto. She denies any shortness of breath, chest pain, flutter. She reports pain in the left lower extremity and swelling. She is able to walk on it but it is painful, and has been using chronic hydrocodone for 8 years due to chronic clotting and pain in her legs. 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 She denies any prolonged sitting for periods, long car rides or recent flights. Denies any known injury to the left lower extremity recently. Admits to smoking on and off throughout her adult life, denies any alcohol use. Allergies Allergy/AdvReac Type Severity Reaction Status Date / Time kiwi Allergy Severe ANAPHYLAXIS Verified 06/10/21 08:46 tree nut Allergy Severe Anaphylaxis Verified 06/10/21 08:46 metronidazole Allergy Intermediate hives Verified 06/10/21 08:46 morphine Allergy Intermediate chest Verified 06/10/21 08:46 pain; trouble breathing prochlorperazine AdvReac Severe SEVERE Verified 06/10/21 08:46 DYSTONIA Home Medications Medication Instructions Recorded Confirmed Type albuterol sulfate 90 mcg/actuation 2 puff INHALATION QID PRN 06/02/18 06/10/21 History aerosol inhaler lorazepam 0.5 mg tablet 0.5 mg PO TID PRN 06/02/18 06/10/21 History sumatriptan succinate 50 mg tablet 50 mg PO UD PRN 06/02/18 06/10/21 History topiramate 200 mg tablet 200 mg PO BID 06/02/18 06/10/21 History fluoxetine 40 mg capsule 40 mg PO QAM 10/25/18 06/10/21 History rivaroxaban 15 mg tablet (Xarelto) 15 mg PO QAM 11/07/18 06/10/21 History docusate sodium 100 mg tablet 100 mg PO BID PRN 08/10/19 06/10/21 History lactobacillus combination no.4 3 0 mmu cells PO QAM 08/10/19 06/10/21 History billion cell capsule (Probiotic) ondansetron HCl 4 mg tablet 4 mg PO Q6H PRN #20 tab 08/10/19 06/10/21 Rx (Zofran) dicyclomine 20 mg tablet 20 mg PO TID PRN 04/05/21 06/10/21 History hydrocodone 5 mg-acetaminophen 325 1 tab PO Q6H PRN 04/05/21 06/10/21 History mg tablet phenazopyridine 200 mg tablet 200 mg PO TID PRN #12 tab 04/11/21 06/10/21 Rx (Pyridium) tamsulosin 0.4 mg capsule 0.4 mg PO QAM #7 cap 04/11/21 06/10/21 Rx ibuprofen 200 mg tablet 800 mg PO Q6H PRN 06/10/21 06/10/21 History pantoprazole 40 mg tablet,delayed 40 mg PO QAM 06/10/21 06/10/21 History release Past Med/Surg History Medical History Asthma Not using inhaler on a regular basis. Denies having any h/o hospitalization or intubation due to asthma Chronic anticoagulation Depression Factor V Leiden PTSD (post-traumatic stress disorder) Recurrent deep vein thrombosis (DVT) Seizure disorder Last episode about 10 years ago. 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 Controlled with topamax. Suicidal ideation Tobacco use Ulcerative colitis Surgical History H/O tubal ligation History of cholecystectomy Hx of tonsillectomy S/P ureteral stent placement 2018 Family History Mother Dyslipidemia Social History Smoking Status: Current some day smoker Tobacco Type: Cigarettes Second Hand Exposure: No; Hx Alcohol Use: No Hx Substance Use: No Preferred Language: Haitian Communication Ability: Effective Building Architect Required: No Beliefs That Will Affect Care: None marital status: Current Living Situation: Spouse and Family current occupational status: employed Feels Safe at Home: Yes Assistive Devices: Glasses Review of Systems Review of Systems: Constitutional: No fever, sweats or chills Eyes: No diplopia, no worsening or blurred vision ENT: normal hearing, no trouble swallowing Respiratory: No cough, sputum, dyspnea at rest or on exertion Cardiovascular: No chest pain, tightness or palpitations Abdomen: No pain, nausea, vomiting, diarrhea or constipation Musculoskeletal: No joint pain, + left sided calf pain, + LLE swelling Neurologic: No weakness, numbness/tingling, or balance problems Psychiatric: No anxiety or depression Skin: No rash or itch Physical Exam Physical Exam: General: awake, alert, no apparent distress, + obese Head: Normocephalic, atraumatic ENT: PERRL, EOMI, no pharyngeal exudate, mucous membranes moist Chest: Clear to auscultation, on room air, no adventitious breath sounds Cardiac: Regular rate and rhythm, no murmur, no JVD, normal peripheral pulses, good capillary refill Abdominal: NABS x 4 quadrants, soft, nondistended, nontender to palpation, no rebound or guarding Extremities: LLE edema around calf, behind the knee and up medial upper thigh, otherwise RLE no erythema, normal inspection, no peripheral edema, Right calf nontender to palpation Psych: Normal mood and affect Neuro: AAO x 3, strength intact bilaterally and rated 5/5, no motor deficits, speech is clear, no peripheral sensory deficits Results & Data Results & Data ([facility]) Vital Signs (Past 12 Hours) Vital Signs Temp Pulse Pulse Resp BP BP Pulse Ox 06/10/21 10:13 71 18 113/73 95 06/10/21 08:33 36.0 C L 81 20 130/79 98 Laboratory Results 06/10/21 06/10/21 06/10/21 10:50 10:15 08:30 WBC RBC Hgb Hct MCV MCH MCHC RDW Std Deviation RDW Coeff of Vik Plt Count MPV Immature Gran % (Auto) Neut % (Auto) Lymph % (Auto) [place] % (Auto) Eos % (Auto) Baso % (Auto) Neut # (Auto) Lymph # (Auto) [place] # (Auto) Eos # (Auto) Baso # (Auto) Immature Gran # (Auto) PT 10.1 INR 1.0 APTT 24.5 PTT Ratio 0.9 Sodium 140 Potassium 4.1 Chloride 112 H Carbon Dioxide 20 L Anion Gap 7.0 BUN 16 Creatinine 0.92 Est Cr Clr Drug Dosing 73.8 Est GFR ( Amer) 85.3 Est GFR (Non-Af Amer) 73.6 BUN/Creatinine Ratio 17.6 Glucose 147 H Calcium 8.4 L Total Bilirubin 0.3 AST 27 ALT 36 Alkaline Phosphatase 64 Total Protein 7.2 Albumin 3.6 Globulin 3.6 Albumin/Globulin Ratio 1.0 Specimen Hemolysis SARS-CoV-2, RNA, NAAT NEGATIVE 06/10/21 08:30 WBC 6.58 RBC 4.27 Hgb 14.4 Hct 41.9 MCV 98.1 MCH 33.7 MCHC 34.4 RDW Std Deviation 44.1 RDW Coeff of Vik 12.4 Plt Count 176 MPV 10.4 Immature Gran % (Auto) 0.3 Neut % (Auto) 52.8 Lymph % (Auto) 36.3 [place] % (Auto) 7.4 Eos % (Auto) 3.0 Baso % (Auto) 0.2 Neut # (Auto) 3.47 Lymph # (Auto) 2.39 [place] # (Auto) 0.49 Eos # (Auto) 0.20 Baso # (Auto) 0.01 Immature Gran # (Auto) 0.02 PT INR APTT PTT Ratio Sodium Potassium Chloride Carbon Dioxide Anion Gap BUN Creatinine Est Cr Clr Drug Dosing Est GFR ( Amer) Est GFR (Non-Af Amer) BUN/Creatinine Ratio Glucose Calcium Total Bilirubin AST ALT Alkaline Phosphatase Total Protein Albumin Globulin Albumin/Globulin Ratio Specimen Hemolysis SARS-CoV-2, RNA, NAAT Diagnostic Findings Venous Doppler Study 06/10/21 08:49 LEFT LOWER EXTREMITY VENOUS DOPPLER HISTORY: left leg increased pain/swelling, hx dvt COMPARISON STUDY: Left leg venous Doppler 05/30/2021. FINDINGS: There again noted scattered areas of linear echogenic stranding seen within the left common femoral, superficial femoral, and popliteal veins. These demonstrate normal compressibility. Therefore, this is consistent with chronic nonocclusive thrombus. The anterior tibial vein is patent. No definite flow identified within within the majority of the left posterior tibial and peroneal veins consistent with thrombus. This appears new from the prior study. IMPRESSION: 1. No change in the chronic nonocclusive thrombus within the left lower extremities described above. 2. Interval development of acute DVT within the left posterior tibial and peroneal veins. ACT 112: Negative or not required by law. Electronically signed by: Balwinder Beltran M.D. 06/10/2021 10:04 AM Chest CTA 06/10/21 10:37 CT angio chest PE protocol CLINICAL HISTORY: dvt, chest pain TECHNIQUE: Multidetector row helical CT of the chest was performed. Coronal and sagittal reformations were obtained. Automated dose lowering techniques and/or adjustment according to patient size were utilized for this exam. Comparison: None available at the time of this dictation. FINDINGS: Lungs and pleura: Normal. Heart and pericardium: Heart size is normal. No pericardial effusion. Vessels: No evidence of pulmonary embolism. Mediastinum and marylin: Unremarkable. Chest wall and lower neck: Unremarkable. Abdomen: Unremarkable. Bones: Unremarkable. IMPRESSION: No evidence of pulmonary embolism. ACT 112: Negative or not required by law. Electronically signed by: Emanuel Saldana M.D. 06/10/2021 11:19 AM ECG Additional Comments: Vent. Rate : 063 BPM Atrial Rate : 063 BPM P-R Int : 166 ms QRS Dur : 078 ms QT Int : 422 ms P-R-T Axes : 060 057 062 degrees QTc Int : 431 ms Normal sinus rhythm Low voltage QRS Borderline ECG When compared with ECG of 06-APR-2021 11:59, No significant change was found Code Status & VTE Plan Code Status Full code - discussed with the patient at bedside VTE Prophylaxis Plan VTE Prophylaxis will be ordered: Yes Supervising Physician Co-Signing Physician Notes I saw this patient with the physician seed analysis laboratory assistant, I participated in the history, physical, review of systems, and physical exam. I reviewed the medications with the patient and the physician seed analysis laboratory assistant and helped reconcile the medications. I helped take a detailed family and social history as well. I formulated the assessment and plan personally with the physician seed analysis laboratory assistant and went over it with the patient. Physical Exam Gen-AAO x 3, NAD, Afebrile, Obese Head-NCAT, EOMI, PERRLA, Anicteric Sclera, No Posterior Pharyngeal Erythema Neck-Supple, No JVD, No Thyromegaly, No Masses, No LAD, No Bruits Lungs-Clear to Auscultation Bilaterally, No Rales, No Rhonchi, No Wheezing, No Crepitus Chest-No S4, +S1, +S2, No S3, No Murmurs, No Rubs, No Gallops, No Ectopy Abdomen-Soft, Bowel Sounds Present, Non Tender, Non Distended, No Hepatomegaly, No Splenomegaly, No Palpable Masses, No Rebound, No Rigidity, No Guarding Musculoskeletal-Full Range of Motion Bilaterally, No CVAT Extremities-No Cyanosis, No Clubbing, LLE c edema, tender firm Calf to groin posteriorly Nuero-Cranial Nerves II-XII grossly intact, Motor WNL, DTRs WNL, Strength WNL, Non Focal Psych-Normal Mood
[2021-06-10] MEDS ORDERED: OPTIRAY 320 125ml IV ONE (11:05)
[2021-06-10 11:08] LABS: Partial Thromboplastin Ratio 0.9; Partial Thromboplastin Time 24.5 Seconds (21.0-31.0); Prothrombin Time 10.1 Seconds (9.0-12.0)
--- NOTE | 2021-06-10 11:20 | CT Scan Report ---
CT angio chest PE protocol CLINICAL HISTORY: dvt, chest pain TECHNIQUE: Multidetector row helical CT of the chest was performed. Coronal and sagittal reformations were obtained. Automated dose lowering techniques and/or adjustment according to patient size were u tilized for this exam. Comparison: None available at the time of this dictation. FINDINGS: Lungs and pleura: Normal. Heart and pericardium: Heart size is normal. No pericardial effusion. Vessels: No evidence of pulmonary embolism. Mediastinum and marylin: Unremarkable. Chest wall and lower neck: Unremarkable. Abdomen: Unremarkable. Bones: Unremarkable. IMPRESSION: No evidence of pulmonary embolism. ACT 112: Negative or not required by law. Electronically signed by: Emanuel Saldana M.D. 06/10/2021 11:19 AM
[2021-06-10] MEDS: HEPARIN SODIUM/DEXTROSE 25,000 UNITS/500 ML BAG IV SCH (11:21)
[2021-06-10] MEDS: HYDROCODONE/ACETAMOPHEN 5/325MG TAB PO PRN (11:54)
[2021-06-10] MEDS: PANTOprazole 40 MG TAB PO SCH (13:12)
[2021-06-10] MEDS: TAMSULOSIN HCL 0.4 MG CAP PO SCH (13:12)
[2021-06-10] MEDS: LORazepam 0.5 MG TAB PO PRN (13:12)
[2021-06-10] MEDS: FLUoxetine HCL 20 MG CAP PO SCH (13:12)
[2021-06-10] MEDS: TOPIRAMATE 100 MG TAB PO SCH ×2 (13:13→22:50)
[2021-06-10] MEDS ORDERED: HYDROmorphone INJ 1 MG/ML SYRINGE IV STA (13:47)
[2021-06-10] MEDS ORDERED: ACETAMINOPHEN 325 MG TAB PO PRN (14:13)
--- NOTE | 2021-06-10 16:55 | Emergency Department Note ---
History of Present Illness General Chief complaint: Leg Injury/Pain Stated complaint: LEFT LEG PAIN Time Seen by Provider: 06/10/21 08:36 Source: patient Mode of arrival: ambulatory Limitations: no limitations History of Present Illness Maximum Pain Intensity: 6 This patient is a 50-year-old female who presents to the emergency department complaining of left leg pain. Patient reports that she has a history of DVTs, PEs and factor V Leiden deficiency. She reports that she always has "a little swelling and pain" in her leg, but not to this extent. She reports it has been more painful and swollen over the past few weeks. She was here recently and told that there was a DVT in the leg, but they were unsure if it was new or old. She was previously on Coumadin but states that she failed this after developing clots despite the Coumadin. She is now on Xarelto and states that she takes this faithfully and does not miss any doses. She states that she has swelling and pain in her right calf up into the thigh. She denies any chest pain or shortness of breath. She is a smoker and does report that she continues to smoke "due to stress." Home Medications Medication Instructions Recorded Confirmed Type albuterol sulfate 90 mcg/actuation 2 puff INHALATION QID PRN 06/02/18 06/10/21 History aerosol inhaler lorazepam 0.5 mg tablet 0.5 mg PO TID PRN 06/02/18 06/10/21 History sumatriptan succinate 50 mg tablet 50 mg PO UD PRN 06/02/18 06/10/21 History topiramate 200 mg tablet 200 mg PO BID 06/02/18 06/10/21 History fluoxetine 40 mg capsule 40 mg PO QAM 10/25/18 06/10/21 History rivaroxaban 15 mg tablet (Xarelto) 15 mg PO QAM 11/07/18 06/10/21 History docusate sodium 100 mg tablet 100 mg PO BID PRN 08/10/19 06/10/21 History lactobacillus combination no.4 3 0 mmu cells PO QAM 08/10/19 06/10/21 History billion cell capsule (Probiotic) ondansetron HCl 4 mg tablet 4 mg PO Q6H PRN #20 tab 08/10/19 06/10/21 Rx (Zofran) dicyclomine 20 mg tablet 20 mg PO TID PRN 04/05/21 06/10/21 History hydrocodone 5 mg-acetaminophen 325 1 tab PO Q6H PRN 04/05/21 06/10/21 History mg tablet phenazopyridine 200 mg tablet 200 mg PO TID PRN #12 tab 04/11/21 06/10/21 Rx (Pyridium) tamsulosin 0.4 mg capsule 0.4 mg PO QAM #7 cap 04/11/21 06/10/21 Rx ibuprofen 200 mg tablet 800 mg PO Q6H PRN 06/10/21 06/10/21 History pantoprazole 40 mg tablet,delayed 40 mg PO QAM 06/10/21 06/10/21 History release Allergies Allergy/AdvReac Type Severity Reaction Status Date / Time kiwi Allergy Severe ANAPHYLAXIS Verified 06/10/21 08:46 tree nut Allergy Severe Anaphylaxis Verified 06/10/21 08:46 metronidazole Allergy Intermediate hives Verified 06/10/21 08:46 morphine Allergy Intermediate chest Verified 06/10/21 08:46 pain; trouble breathing prochlorperazine AdvReac Severe SEVERE Verified 06/10/21 08:46 DYSTONIA Past Med/Surg History Medical History Asthma Not using inhaler on a regular basis. Denies having any h/o hospitalization or intubation due to asthma Chronic anticoagulation Depression Factor V Leiden PTSD (post-traumatic stress disorder) Recurrent deep vein thrombosis (DVT) Seizure disorder Last episode about 10 years ago. 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 Controlled with topamax. Suicidal ideation Tobacco use Ulcerative colitis Surgical History H/O tubal ligation History of cholecystectomy Hx of tonsillectomy S/P ureteral stent placement 2018 Family History Mother Dyslipidemia Social History Smoking Status: Current some day smoker Tobacco Type: Cigarettes Second Hand Exposure: No; Hx Alcohol Use: No Hx Substance Use: No Preferred Language: Bruneian Communication Ability: Effective Retoucher Required: No Beliefs That Will Affect Care: None marital status: Current Living Situation: Spouse and Family current occupational status: employed Feels Safe at Home: Yes Assistive Devices: Glasses Review of Systems A total of 10 systems reviewed and were otherwise negative Physical Exam Vital Signs Vital Signs - 24 hr 06/10/21 08:33 06/10/21 10:13 Temperature 36.0 C L Temperature Source Temporal Artery Scan Pulse Rate 81 Pulse Rate [Finger] 71 Pulse Rhythm Regular Pulse Strength Normal Respiratory Rate 20 18 Respiratory Effort / Characteristics Non-Labored Spontaneous Respiratory Depth Normal Respiratory Pattern Regular Blood Pressure 130/79 Blood Pressure [Right Arm] 113/73 Blood Pressure Mean 96 Blood Pressure Mean [Right Arm] 86 Blood Pressure Position Sitting Pulse Oximetry 98 95 Oxygen Delivery Method Room Air Room Air Sepsis Recent Fever Within 48 Hours No Sepsis New/Unexplained Change in Mental Status No Sepsis Action Taken by Nursing No Action Required VITALS: Vitals are noted on the nurse's note and reviewed by myself. GENERAL: This is a 50-year-old female, in no acute distress, well-developed well-nourished. SKIN: There are no rashes. There is generalized tenderness to light palpation of the left lower extremity, including the calf, popliteal region and medial thigh. EYES: Pupils equal round and reactive to light and accommodation. MOUTH: Mucous membranes moist. NECK: Supple without nuchal rigidity. No lymphadenopathy. HEART: Regular rate and rhythm without murmurs gallops or rubs. LUNGS: Clear to auscultation bilaterally without wheezes, rales or rhonchi. No retractions or accessory muscle use. NEURO: Patient was alert and oriented to person place and time. Distal sensation intact. Course Administered Medications Hydrocodone Bitart/Acetaminophen (Hydrocodone/Acetamophen 5/325mg Tab) 1 tab PO Q6H PRN PRN Reason: Pain Stop: 06/24/21 11:36 Last Admin: 06/10/21 11:54 Dose: 1 tab Documented by: [id number] Fluoxetine HCl (Fluoxetine Hcl 20 Mg Cap) 40 mg PO QAM [facility] Stop: 07/10/21 11:44 Last Admin: 06/10/21 13:12 Dose: 40 mg Documented by: [id number] Heparin Sodium/Dextrose (Heparin Sodium/Dextrose) 25,000 units in 500 mls @ 22 mls/hr IV .[id number] [facility]; Protocol Stop: 07/10/21 10:59 Last Admin: 06/10/21 11:21 Dose: 1,100 units/hr, 22 mls/hr Documented by: [id number] Cosigned by: [id number] Lorazepam (Lorazepam 0.5 Mg Tab) 0.5 mg PO TID PRN PRN Reason: Anxiety Stop: 07/10/21 11:36 Last Admin: 06/10/21 13:12 Dose: 0.5 mg Documented by: [id number] Pantoprazole Sodium (Pantoprazole 40 Mg Tab) 40 mg PO QAM [facility] Stop: 07/10/21 11:36 Last Admin: 06/10/21 13:12 Dose: 40 mg Documented by: [id number] Tamsulosin HCl (Tamsulosin Hcl 0.4 Mg Cap) 0.4 mg PO QAM [facility] Stop: 07/10/21 11:39 Last Admin: 06/10/21 13:12 Dose: 0.4 mg Documented by: [id number] Topiramate (Topiramate 100 Mg Tab) 200 mg PO BID [facility] Stop: 07/10/21 11:44 Last Admin: 06/10/21 13:13 Dose: 200 mg Documented by: [id number] Discontinued Medications Heparin Sodium/Dextrose (Heparin Iv Adult Wt-Based Standard *No* Bolus Protocol) 1 ea N/A ONE ONE; Protocol Stop: 06/10/21 10:42 Last Admin: 06/10/21 11:21 Dose: Not Given Documented by: [id number] Hydromorphone HCl (Hydromorphone Inj 0.5 Mg/0.5 Ml Syr) 0.5 mg IV NOW STA Stop: 06/10/21 08:52 Last Admin: 06/10/21 09:27 Dose: 0.5 mg Documented by: [id number] Hydromorphone HCl (Hydromorphone Inj 0.5 Mg/0.5 Ml Syr) 0.5 mg IV NOW STA Stop: 06/10/21 10:05 Last Admin: 06/10/21 10:08 Dose: 0.5 mg Documented by: [id number] Hydromorphone HCl (Hydromorphone Inj 1 Mg/Ml Syringe) 1 mg IV NOW STA Stop: 06/10/21 13:48 Last Admin: 06/10/21 14:07 Dose: 1 mg Documented by: [id number] Ioversol (Optiray 320 125ml) 119 ml IV ONCE ONE Stop: 06/10/21 11:06 Last Admin: 06/10/21 11:06 Dose: 119 ml Documented by: [id number] Ondansetron HCl (Ondansetron Inj 2 Mg/Ml 2 Ml Vial) 4 mg IV NOW STA Stop: 06/10/21 10:05 Last Admin: 06/10/21 10:08 Dose: 4 mg Documented by: [id number] Medical Decision Making Differential Diagnosis DVT, musculoskeletal, infection, joint effusion, trauma, lymphedema, idiopathic, CHF, as well as other pathologies. Home Medications Current Medication List: was personally reviewed by me Laboratory Data Attestation: I reviewed the patient's lab results. Result diagrams: 06/10/21 08:30 06/10/21 08:30 Lab Results 06/10/21 06/10/21 06/10/21 Range/Units 08:30 08:30 10:15 WBC 6.58 (4.8-10.8) K/uL RBC 4.27 (4.2-5.4) M/uL Hgb 14.4 (12.0-16.0) g/dL Hct 41.9 (37-47) % MCV 98.1 (80-100) fL MCH 33.7 (25-34) pg MCHC 34.4 (32-36) g/dL RDW Std Deviation 44.1 (36.4-46.3) fL RDW Coeff of Vik 12.4 (11.5-14.5) % Plt Count 176 (130-400) K/uL MPV 10.4 (7.4-10.4) fL Immature Gran % (Auto) 0.3 % Neut % (Auto) 52.8 % Lymph % (Auto) 36.3 % Wythe % (Auto) 7.4 % Eos % (Auto) 3.0 % Baso % (Auto) 0.2 % Neut # (Auto) 3.47 (1.4-6.5) K/uL Lymph # (Auto) 2.39 (1.2-3.4) K/uL Wythe # (Auto) 0.49 (0.11-0.59) K/uL Eos # (Auto) 0.20 (0-0.5) K/uL Baso # (Auto) 0.01 (0-0.2) K/uL Immature Gran # (Auto) 0.02 (0.00-0.02) K/uL Sodium 140 (136-145) mmol/L Potassium 4.1 (3.5-5.1) mmol/L Chloride 112 H (98-107) mmol/L Carbon Dioxide 20 L (21-32) mmol/L Anion Gap 7.0 (3-11) BUN 16 (7-18) mg/dl Creatinine 0.92 (0.6-1.2) mg/dl Est Cr Clr Drug Dosing 73.8 ml/min Est GFR ( Amer) 85.3 ml/min Est GFR (Non-Af Amer) 73.6 ml/min BUN/Creatinine Ratio 17.6 (10-20) Glucose 147 H (70-99) mg/dl Calcium 8.4 L (8.5-10.1) mg/dl Total Bilirubin 0.3 (0.2-1) mg/dl AST 27 (15-37) U/L ALT 36 (12-78) Alkaline Phosphatase 64 (45-117) U/L Total Protein 7.2 (6.4-8.2) gm/dl Albumin 3.6 (3.4-5.0) gm/dl Globulin 3.6 (2.5-4.0) gm/dl Albumin/Globulin Ratio 1.0 (0.9-2) Specimen Hemolysis SARS-CoV-2, RNA, NAAT NEGATIVE (NEGATIVE) Imaging Data Attestation: I personally reviewed and interpreted this imaging study as follows: Radiologist's Impression: Venous Doppler Study 06/10/21 08:49 LEFT LOWER EXTREMITY VENOUS DOPPLER HISTORY: left leg increased pain/swelling, hx dvt COMPARISON STUDY: Left leg venous Doppler 05/30/2021. FINDINGS: There again noted scattered areas of linear echogenic stranding seen within the left common femoral, superficial femoral, and popliteal veins. These demonstrate normal compressibility. Therefore, this is consistent with chronic nonocclusive thrombus. The anterior tibial vein is patent. No definite flow identified within within the majority of the left posterior tibial and peroneal veins consistent with thrombus. This appears new from the prior study. IMPRESSION: 1. No change in the chronic nonocclusive thrombus within the left lower extremities described above. 2. Interval development of acute DVT within the left posterior tibial and peroneal veins. ACT 112: Negative or not required by law. Electronically signed by: Balwinder Beltran M.D. 06/10/2021 10:04 AM Chest CTA 06/10/21 10:37 CT angio chest PE protocol CLINICAL HISTORY: dvt, chest pain TECHNIQUE: Multidetector row helical CT of the chest was performed. Coronal and sagittal reformations were obtained. Automated dose lowering techniques and/or adjustment according to patient size were utilized for this exam. Comparison: None available at the time of this dictation. FINDINGS: Lungs and pleura: Normal. Heart and pericardium: Heart size is normal. No pericardial effusion. Vessels: No evidence of pulmonary embolism. Mediastinum and marylin: Unremarkable. Chest wall and lower neck: Unremarkable. Abdomen: Unremarkable. Bones: Unremarkable. IMPRESSION: No evidence of pulmonary embolism. ACT 112: Negative or not required by law. Electronically signed by: Emanuel Saldana M.D. 06/10/2021 11:19 AM MDM Narrative The patient is a 50-year-old female who presents today complaining of worsening left leg pain. Patient has history of DVT, PE and factor V Leiden deficiency currently on Xarelto. Patient has failed Coumadin in the past. An ultrasound w as performed and does show interval development of an acute DVT in addition to the patient's chronic DVT. Given her failure of 2 anticoagulants, I do feel patient would benefit from admission. When I discussed the findings with the patient, she was rubbing her chest and states that it started to hurt while she was here. A CT angiogram of the chest was performed and shows no evidence of PE. Case was discussed with the [facility] service, who agreed to evaluate the patient for further care. Impression & Plan Acute deep vein thrombosis of left lower extremity Discharge Plan Visit Data Chief Complaint: Leg Injury/Pain Stated Complaint: LEFT LEG PAIN ED Provider: James Porter ED Midlevel Provider: Sobeida Allison Discharge Problem: Acute deep vein thrombosis of left lower extremity Discharge Instructions Interventions: ED Discharge Assessment Last Done: 06/10/21 13:39
[2021-06-10 17:33] LABS: Partial Thromboplastin Ratio 1.6; Partial Thromboplastin Time 42.7 Seconds (21.0-31.0)
[2021-06-10] MEDS: HYDROmorphone INJ 0.5 MG/0.5 ML SYR IV PRN (17:52)
[2021-06-11] MEDS: HYDROmorphone INJ 0.5 MG/0.5 ML SYR IV PRN ×4 (02:00→23:08)
[2021-06-11 02:28] LABS: Partial Thromboplastin Ratio 1.8
[2021-06-11 03:34] LABS: Partial Thromboplastin Time 46.1 Seconds (21.0-31.0)
[2021-06-11] MEDS: MoRPHine SULFATE 4 MG/ML 1 ML CARP\\VIAL IV PRN ×2 (04:15→19:52)
[2021-06-11 06:34] LABS: Hematocrit (blood only) 41.9 % (37-47); Hemoglobin 14.4 g/dL (12.0-16.0); Mean Corpuscular Hgb Conc 34.4 g/dL (32-36); Mean Corpuscular Volume 99.1 fL (80-100); Mean Platelet Volume 10.6 fL (7.4-10.4); Platelet Count 151 K/uL (130-400); RDW Coefficient of Variation 12.3 % (11.5-14.5); Red Blood Count 4.23 M/uL (4.2-5.4); White Blood Count 5.35 K/uL (4.8-10.8)
[2021-06-11 06:48] LABS: Prothrombin Time 10.1 Seconds (9.0-12.0)
[2021-06-11 07:04] LABS: Albumin Level 3.2 gm/dl (3.4-5.0); BUN Creatinine Ratio 15.1 (10-20); Calcium 8.5 mg/dl (8.5-10.1); Creatinine Clr Calc Pharmacy 66.1 ml/min; Est GFR (African American) 72.7 ml/min; Est GFR (Non-African American) 62.8 ml/min; Potassium 3.8 mmol/L (3.5-5.1)
[2021-06-11 07:07] LABS: Albumin Globulin Ratio 0.9 (0.9-2); Bilirubin,Total 0.3 mg/dl (0.2-1); Globulin 3.4 gm/dl (2.5-4.0); Total Protein 6.6 gm/dl (6.4-8.2)
[2021-06-11] MEDS: TOPIRAMATE 100 MG TAB PO SCH ×2 (07:41→20:31)
[2021-06-11] MEDS: FLUoxetine HCL 20 MG CAP PO SCH (07:41)
[2021-06-11] MEDS: HEPARIN SODIUM/DEXTROSE 25,000 UNITS/500 ML BAG IV SCH (07:47)
[2021-06-11] MEDS: PANTOprazole 40 MG TAB PO SCH (08:44)
[2021-06-11] MEDS: TAMSULOSIN HCL 0.4 MG CAP PO SCH (08:44)
[2021-06-11] MEDS: HYDROCODONE/ACETAMOPHEN 5/325MG TAB PO PRN (12:26)
--- NOTE | 2021-06-11 15:59 | Hospitalist Progress Note ---
Date of Service June 11, 2021 Assessment & Plan (1) Acute deep vein thrombosis of left lower extremity: Plan: Acute left lower extremity DVT H/O multiple DVTs, PEs in the past H/O factor V Leyden mutation -Venous Doppler: No change in the chronic nonocclusive thrombus within the left lower extremities described above. Interval development of acute DVT within the left posterior tibial and peroneal veins. -CTA:No evidence of pulmonary embolism. -Developed DVT while on Coumadin in the past -Follows with [facility] hematology -Currently taking Xarelto 15 mg daily instead of 20 mg daily -Continue IV heparin for now Discussed with hematology Dr. Geremias Turpin on 06/11/21 -We will plan to increase Xarelto to 15 BID for 3 weeks and then transition to 20 mg daily with food upon discharge Will need follow-up with dermatology upon discharge (2) History of factor V Leiden mutation: Plan: - first DVT occurred at age 18 and was placed on coumadin at that time - Follow with outpt hematology (3) Anxiety: Plan: - lorazepam as needed for anxiety (4) Tobacco use: Plan: -Patient has smoked throughout her adult life on and off smoking cessation encouraged DVT Px: heparin drip CODE STATUS: Full code Admission and Anticipated Discharge Date Admission Date: June 10, 2021 Subjective Patient is seen and examined at bedside Complains of left lower extremity swelling, pain Denies any chest pain, shortness of breath, dizziness, nausea, abdominal pain Discussed with hematology today Review of Systems Review of Systems: All systems reviewed & are unremarkable except as noted in Subjective Physical Exam Physical Exam: Physical Exam: Vitals signs as noted above General Appearance:Obese, no apparent distress Head: normocephalic, Atraumatic Eyes: normal inspection, EOMI Neck: supple, Trachea midline Respiratory/Chest: Normal breath sounds, CTA Cardiovascular: S1, S2, No murmur Abdomen/GI:Soft, Non tender, Bowel sounds present Extremities/Musculoskeletal:normal inspection, Left LE edema, tender 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:AAOX3, grossly no focal neurological deficits Skin: normal color, warm Results & Data Results & Data ([facility]) Vital Signs (Past 12 Hours) Vital Signs Temp Pulse Pulse Resp BP Pulse Ox 06/11/21 11:53 36.8 C 71 18 101/62 95 06/11/21 08:00 68 06/11/21 07:47 36.7 C 70 20 103/63 95 06/11/21 05:09 36.5 C 70 18 110/71 96 Laboratory Results Short CBC 06/11/21 Range/Units 06:07 WBC 5.35 (4.8-10.8) K/uL Hgb 14.4 (12.0-16.0) g/dL Hct 41.9 (37-47) % Plt Count 151 (130-400) K/uL BMP 06/11/21 06:07 Sodium 142 Potassium 3.8 Chloride 111 H Carbon Dioxide 26 BUN 16 Creatinine 1.05 Glucose 113 H Calcium 8.5 Liver Function 06/11/21 Range/Units 06:07 Total Bilirubin 0.3 (0.2-1) mg/dl AST 37 (15-37) U/L ALT 67 (12-78) Alkaline Phosphatase 66 (45-117) U/L Albumin 3.2 L (3.4-5.0) gm/dl
[2021-06-11] MEDS: ONDANSETRON INJ 2 MG/ML 2 ML VIAL IV PRN (19:52)
[2021-06-12] MEDS: ONDANSETRON INJ 2 MG/ML 2 ML VIAL IV PRN ×2 (01:55→06:07)
[2021-06-12] MEDS ORDERED: SUMAtriptan succinate 6 MG/0.5 ML VIAL SQ STA (02:30)
[2021-06-12] MEDS ORDERED: LORazepam 0.5 MG/1 ML VIAL IV PRN (02:52)
[2021-06-12] MEDS ORDERED: KETOROLAC TROMETHAMINE 15 MG/ML VIAL IV ONE ×2 (02:54→21:51)
[2021-06-12] MEDS ORDERED: METOCLOPRAMIDE HCL INJ 5 MG/ML 2 ML VIAL IV ONE (02:54)
[2021-06-12] MEDS ORDERED: LACTATED RINGER'S 1,000 ML IV ONE (02:56)
[2021-06-12 04:18] LABS: Basophils # (auto) 0.01 K/uL (0-0.2); Basophils % (auto) 0.1 %; Eosinophils # (auto) 0.16 K/uL (0-0.5); Eosinophils % (auto) 1.6 %; Hematocrit (blood only) 44.3 % (37-47); Hemoglobin 15.2 g/dL (12.0-16.0); Immature Granulocytes # (auto) 0.03 K/uL (0.00-0.02); Immature Granulocytes % (auto) 0.3 %; Lymphocytes % (auto) 13.1 %; Mean Corpuscular Hemoglobin 33.8 pg (25-34); Mean Corpuscular Hgb Conc 34.3 g/dL (32-36); Mean Corpuscular Volume 98.4 fL (80-100); Mean Platelet Volume 10.4 fL (7.4-10.4); Monocytes # (auto) 0.83 K/uL (0.11-0.59); Monocytes % (auto) 8.4 %; Neutrophils # (auto) 7.59 K/uL (1.4-6.5); Neutrophils % (auto) 76.5 %; Platelet Count 145 K/uL (130-400); RDW Coefficient of Variation 12.2 % (11.5-14.5); RDW Standard Deviation 43.7 fL (36.4-46.3); White Blood Count 9.92 K/uL (4.8-10.8)
[2021-06-12 04:35] LABS: Albumin Level 3.4 gm/dl (3.4-5.0); BUN Creatinine Ratio 18.4 (10-20); Calcium 8.7 mg/dl (8.5-10.1); Creatinine Clr Calc Pharmacy 69.4 ml/min; Est GFR (African American) 77.2 ml/min; Est GFR (Non-African American) 66.6 ml/min; Potassium 3.5 mmol/L (3.5-5.1)
[2021-06-12 04:37] LABS: Bilirubin,Total 0.3 mg/dl (0.2-1); Globulin 3.5 gm/dl (2.5-4.0); Total Protein 6.9 gm/dl (6.4-8.2)
[2021-06-12] MEDS ORDERED: OPTIRAY 320 100ml IV ONE (05:20)
[2021-06-12] MEDS: MoRPHine SULFATE 4 MG/ML 1 ML CARP\\VIAL IV PRN ×5 (06:08→17:27)
--- NOTE | 2021-06-12 07:26 | CT Scan Report ---
CT head/brain wo con CLINICAL HISTORY: 50 years-old Female with kahn. Acute headache with nausea and vomiting TECHNIQUE: Multiple axial CT images of the head were obtained without contrast. A dose lowering tech nique was utilized adhering to the principles of ALARA. COMPARISON: Head CT 02/16/2021 FINDINGS: No acute intracranial hemorrhage, midline shift, intracranial mass, hydrocephalus, territorial ischem ia or abnormal extra-axial collection. Low-lying cerebellar tonsils. The calvarium is intact. Minimal mucosal thickening of the ethmoid air cells. The mastoid air cells are clear. IMPRESSION: No acute intracranial abnormality. ACT 112: Negative or not required by law. The above report was generated using voice recognition software. It may contain grammatical, syntax o r spelling errors. Electronically signed by: Angelo Valdez M.D. 06/12/2021 7:24 AM
[2021-06-12] MEDS ORDERED: POTASSIUM CHLORIDE CRTAB 20 MEQ TABCR PO ONE (07:27)
[2021-06-12] MEDS ORDERED: POLYETHYLENE (MIRALAX) 17 GM PACK PO STA (07:28)
[2021-06-12] MEDS ORDERED: POLYETHYLENE (MIRALAX) 17 GM PACK PO PRN (07:28)
[2021-06-12] MEDS ORDERED: HYDROmorphone INJ 0.5 MG/0.5 ML SYR IV PRN (07:29)
[2021-06-12] MEDS ORDERED: DOCUSATE SODIUM/SENNA 50/8.6MG TAB PO SCH (07:30)
--- NOTE | 2021-06-12 07:50 | CT Scan Report ---
ABDOMEN AND PELVIS CT WITH IV CONTRAST CT DOSE: 1609.58 mGy.cm HISTORY: Acute generalized abdominal pain with nausea and vomiting abd pain TECHNIQUE: Multiaxial CT images of the abdomen and pelvis were performed following the IV administrat ion of 95 cc of Optiray, A dose lowering technique was utilized adhering to the principles of ALARA. COMPARISON STUDY: CTA chest 06/10/2021, CT abdomen and pelvis 04/05/2021 FINDINGS: The imaged inferior cardiac chambers are unremarkable. Mild subsegmental bibasilar atelecta sis. 5 mm fissural nodule of the right lung base on image 24 series 5 is suggestive of a probable lym ph node, unchanged. No pneumatosis or pneumoperitoneum. The spleen is mildly enlarged, 13.4 cm in darek gth. Pancreas and adrenal glands are unremarkable. Hepatic steatosis. Cholecystectomy. Patent portal vein. Unremarkable kidneys. No hydronephrosis. Unremarkable uterus and adnexa. Aorta and IVC are unremarkab le. No adenopathy. Tiny hiatal hernia. No bowel obstruction or bowel wall thickening. Mild colonic di verticulosis. Moderate fecal retention. Noninflamed appendix. Scattered small bowel air-fluid levels, likely physiologic. Right paracentral 9 mm fat filled periumbilical hernia. No acute fracture. IMPRESSION: 1. No acute intra-abdominal or intrapelvic abnormality. 2. No bowel obstruction or bowel wall thickening. Normal appendix. 3. Moderate fecal retention. 4. Hepatic steatosis. ACT 112: Negative or not required by law. The above report was generated using voice recognition software. It may contain grammatical, syntax o r spelling errors. Electronically signed by: Angelo Valdez M.D. 06/12/2021 7:49 AM
[2021-06-12 08:28] LABS: Partial Thromboplastin Ratio 0.9; Partial Thromboplastin Time 23.3 Seconds (21.0-31.0)
[2021-06-12] MEDS: TAMSULOSIN HCL 0.4 MG CAP PO SCH (08:46)
[2021-06-12] MEDS: DOCUSATE SODIUM/SENNA 50/8.6MG TAB PO SCH ×2 (08:46→21:35)
[2021-06-12] MEDS: FLUoxetine HCL 20 MG CAP PO SCH (08:46)
[2021-06-12] MEDS: TOPIRAMATE 100 MG TAB PO SCH ×2 (08:46→21:35)
[2021-06-12] MEDS: PANTOprazole 40 MG TAB PO SCH (08:46)
[2021-06-12 14:58] LABS: Partial Thromboplastin Ratio 1.5; Partial Thromboplastin Time 38.5 Seconds (21.0-31.0)
[2021-06-12] MEDS: HEPARIN SODIUM/DEXTROSE 25,000 UNITS/500 ML BAG IV SCH ×2 (15:01→18:33)
--- NOTE | 2021-06-12 17:20 | Hospitalist Progress Note ---
Date of Service June 12, 2021 Assessment & Plan (1) Acute deep vein thrombosis of left lower extremity: Plan: Acute left lower extremity DVT H/O multiple DVTs, PEs in the past H/O factor V Leyden mutation -Venous Doppler: No change in the chronic nonocclusive thrombus within the left lower extremities described above. Interval development of acute DVT within the left posterior tibial and peroneal veins. -CTA:No evidence of pulmonary embolism. -Developed DVT while on Coumadin in the past -Follows with [facility] hematology -Currently taking Xarelto 15 mg daily instead of 20 mg daily -Continue IV heparin for now Discussed with hematology Dr. Geremias Turpin on 06/11/21 -We will plan to increase Xarelto to 15 BID for 3 weeks and then transition to 20 mg daily with food upon discharge Will need follow-up with Hematology upon discharge Likely transition IV heparin to Xarelto tomorrow Constipation On bowel regimen Minimize narcotics as able Migraine Continue home medications CT head showed no acute findings (2) History of factor V Leiden mutation: Plan: - first DVT occurred at age 18 and was placed on coumadin at that time - Follow with outpt hematology (3) Anxiety: Plan: - lorazepam as needed for anxiety (4) Tobacco use: Plan: -Patient has smoked throughout her adult life on and off smoking cessation encouraged DVT Px: heparin drip CODE STATUS: Full code Admission and Anticipated Discharge Date Admission Date: June 10, 2021 Subjective Patient is seen and examined at bedside Had significant headache and abdominal discomfort overnight which did resolve this morning Leg pain, swelling slowly improving Reports constipation No other complaints Denies any chest pain, shortness of breath, dizziness, nausea Review of Systems Review of Systems: All systems reviewed & are unremarkable except as noted in Subjective Physical Exam Physical Exam: Physical Exam: Vitals signs as noted above General Appearance:Obese, no apparent distress Head: normocephalic, Atraumatic Eyes: normal inspection, EOMI Neck: supple, Trachea midline Respiratory/Chest: Normal breath sounds, CTA Cardiovascular: S1, S2, No murmur Abdomen/GI:Soft, Non tender, Bowel sounds present Extremities/Musculoskeletal:normal inspection, Left LE edema, tender 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:AAOX3, grossly no focal neurological deficits Skin: normal color, warm Results & Data Results & Data ([facility]) Vital Signs (Past 12 Hours) Vital Signs Temp Pulse Resp BP BP Pulse Ox 06/12/21 15:24 36.8 C 77 18 100/66 95 06/12/21 11:42 37.4 C 91 H 18 94/66 L 95 06/12/21 08:15 36.4 C L 92 H 18 101/66 94 06/12/21 05:56 36.9 C 91 H 18 105/69 97 Laboratory Results Short CBC 06/12/21 Range/Units 03:51 WBC 9.92 (4.8-10.8) K/uL Hgb 15.2 (12.0-16.0) g/dL Hct 44.3 (37-47) % Plt Count 145 (130-400) K/uL BMP 06/12/21 04:05 Sodium 139 Potassium 3.5 Chloride 109 H Carbon Dioxide 23 BUN 18 Creatinine 1.00 Glucose 98 Calcium 8.7 Liver Function 06/12/21 Range/Units 04:05 Total Bilirubin 0.3 (0.2-1) mg/dl AST 25 (15-37) U/L ALT 58 (12-78) Alkaline Phosphatase 65 (45-117) U/L Albumin 3.4 (3.4-5.0) gm/dl
[2021-06-12 18:12] LABS: Appearance Urine Clear (Clear); Bilirubin Urine Negative (Negative); Blood Urine Negative (Negative); Color Urine Yellow; Glucose Urine UA Negative (Negative); Ketones Urine Negative (Negative); Leukocyte Esterase Urine Negative (Negative); Nitrite Urine Negative (Negative); Protein Urine Negative (Negative); Specific Gravity Urine 1.018 (1.000-1.030); Urobilinogen Urine Negative (Negative)
[2021-06-12] MEDS ORDERED: DICYCLOMINE HCL 20 MG TAB PO PRN (19:03)
[2021-06-12] MEDS: HYDROCODONE/ACETAMOPHEN 5/325MG TAB PO PRN (19:42)
[2021-06-12] MEDS: LORazepam 0.5 MG TAB PO PRN (21:35)
[2021-06-12 21:51] LABS: Partial Thromboplastin Ratio 1.8
[2021-06-12] MEDS ORDERED: oxyCODONE HCL IR 5 MG TAB (IMMEDIATE RELEASE) PO PRN (21:51)
[2021-06-12 21:59] LABS: Partial Thromboplastin Time 47.1 Seconds (21.0-31.0)
[2021-06-13] MEDS: MoRPHine SULFATE 2 MG/ML CARP IV PRN ×3 (00:03→12:17)
[2021-06-13] MEDS: oxyCODONE HCL IR 5 MG TAB (IMMEDIATE RELEASE) PO PRN ×2 (02:46→08:40)
[2021-06-13 07:19] LABS: Hematocrit (blood only) 41.1 % (37-47); Hemoglobin 13.9 g/dL (12.0-16.0); Mean Corpuscular Hemoglobin 33.5 pg (25-34); Mean Corpuscular Hgb Conc 33.8 g/dL (32-36); Mean Platelet Volume 10.5 fL (7.4-10.4); Platelet Count 139 K/uL (130-400); RDW Coefficient of Variation 12.4 % (11.5-14.5); RDW Standard Deviation 44.4 fL (36.4-46.3); Red Blood Count 4.15 M/uL (4.2-5.4); White Blood Count 5.14 K/uL (4.8-10.8)
[2021-06-13 07:38] LABS: Partial Thromboplastin Ratio 1.8
[2021-06-13 07:48] LABS: Partial Thromboplastin Time 47.2 Seconds (21.0-31.0)
[2021-06-13 08:06] LABS: BUN Creatinine Ratio 14.2 (10-20); Calcium 8.3 mg/dl (8.5-10.1); Creatinine Clr Calc Pharmacy 77.1 ml/min; Est GFR (African American) 87.6 ml/min; Est GFR (Non-African American) 75.6 ml/min
[2021-06-13] MEDS: TAMSULOSIN HCL 0.4 MG CAP PO SCH (09:09)
[2021-06-13] MEDS: FLUoxetine HCL 20 MG CAP PO SCH (09:09)
[2021-06-13] MEDS: TOPIRAMATE 100 MG TAB PO SCH (09:10)
[2021-06-13] MEDS: DOCUSATE SODIUM/SENNA 50/8.6MG TAB PO SCH (09:10)
[2021-06-13] MEDS: PANTOprazole 40 MG TAB PO SCH (09:10)
[2021-06-13] MEDS ORDERED: RIVAROXABAN 15 MG TAB PO SCH (10:00)
[2021-06-13] MEDS: HEPARIN SODIUM/DEXTROSE 25,000 UNITS/500 ML BAG IV SCH (10:00)
--- NOTE | 2021-06-13 12:08 | Hospitalist Progress Note ---
Date of Service June 13, 2021 Assessment & Plan (1) Acute deep vein thrombosis of left lower extremity: Plan: Acute left lower extremity DVT H/O multiple DVTs, PEs in the past H/O factor V Leyden mutation -Venous Doppler: No change in the chronic nonocclusive thrombus within the left lower extremities described above. Interval development of acute DVT within the left posterior tibial and peroneal veins. -CTA:No evidence of pulmonary embolism. -Developed DVT while on Coumadin in the past -Follows with [facility] hematology -Currently taking Xarelto 15 mg daily instead of 20 mg daily -Received IV heparin Discussed with hematology Dr. Geremias Turpin on 06/11/21 -We will plan to increase Xarelto to 15 BID for 3 weeks and then transition to 20 mg daily with food upon discharge Will need follow-up with Hematology upon discharge IV heparin transitioned to Xarelto Constipation Likely due to pain meds Had Small BP, denies nausea, vomiting, Abd pain Continue bowel regimen Minimize narcotics as able Migraine Continue home medications CT head showed no acute findings (2) History of factor V Leiden mutation: Plan: - first DVT occurred at age 18 and was placed on coumadin at that time - Follow with outpt hematology (3) Anxiety: Plan: - lorazepam as needed for anxiety (4) Tobacco use: Plan: -Patient has smoked throughout her adult life on and off smoking cessation encouraged DVT Px: heparin drip>>Xarelto CODE STATUS: Full code Admission and Anticipated Discharge Date Admission Date: June 10, 2021 Subjective Patient is seen and examined at bedside Leg pain is better Had small BM yesterday No new complaints Denies any chest pain, shortness of breath, dizziness, nausea Review of Systems Review of Systems: All systems reviewed & are unremarkable except as noted in Subjective Physical Exam Physical Exam: Physical Exam: Vitals signs as noted above General Appearance:Obese, no apparent distress Head: normocephalic, Atraumatic Eyes: normal inspection, EOMI Neck: supple, Trachea midline Respiratory/Chest: Normal breath sounds, CTA Cardiovascular: S1, S2, No murmur Abdomen/GI:Soft, Non tender, Bowel sounds present Extremities/Musculoskeletal:normal inspection, Left LE edema, mild tender 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:AAOX3, grossly no focal neurological deficits Skin: normal color, warm Results & Data Results & Data ([facility]) Vital Signs (Past 12 Hours) Vital Signs Temp Pulse Resp BP Pulse Ox 06/13/21 08:44 94/62 L 06/13/21 07:48 36.7 C 80 18 89/57 L 95 Laboratory Results Short CBC 06/13/21 Range/Units 06:55 WBC 5.14 (4.8-10.8) K/uL Hgb 13.9 (12.0-16.0) g/dL Hct 41.1 (37-47) % Plt Count 139 (130-400) K/uL BMP 06/13/21 06:55 Sodium 142 Potassium 4.0 Chloride 112 H Carbon Dioxide 22 BUN 13 Creatinine 0.90 Glucose 98 Calcium 8.3 L Urine 06/12/21 Range/Units 17:40 Urine Color Yellow Urine Appearance Clear (Clear) Urine pH 7.0 (4.5-7.5) Ur Specific [place] 1.018 (1.000-1.030) Urine Protein Negative (Negative) Urine Glucose (UA) Negative (Negative)
[2021-06-13] MEDS: ONDANSETRON INJ 2 MG/ML 2 ML VIAL IV PRN (12:17)
--- NOTE | 2021-06-13 12:24 | Discharge Summary ---
Date of Service June 13, 2021 Admission HPI Per Admitting Provider This is a 50 yo F with PMHx of factor V Leiden, previous clotting while on Coumadin and now while on Xarelto. She initially presented to the ER on May 31 for left leg swelling and pain however at that time she was not found to have any occlusive clot and it was considered a age-indeterminate chronic venous thrombosis in the left leg on imaging. She was sent home, and encouraged to seek follow-up with her PCP. She represents today for worsening pain in the left lower leg and is found to have a new occlusive DVT in the left posterior tibial and peroneal veins. She follows with hematology through [facility] as an outpatient. She has previously clotted while on Coumadin and now while on Xarelto. She denies any shortness of breath, chest pain, flutter. She reports pain in the left lower extremity and swelling. She is able to walk on it but it is painful, and has been using chronic hydrocodone for 8 years due to chronic clotting and pain in her legs. 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 She denies any prolonged sitting for periods, long car rides or recent flights. Denies any known injury to the left lower extremity recently. Admits to smoking on and off throughout her adult life, denies any alcohol use. Admission Exam Per Admitting Provider Physical Exam Physical Exam: General: awake, alert, no apparent distress, + obese Head: Normocephalic, atraumatic ENT: PERRL, EOMI, no pharyngeal exudate, mucous membranes moist Chest: Clear to auscultation, on room air, no adventitious breath sounds Cardiac: Regular rate and rhythm, no murmur, no JVD, normal peripheral pulses, good capillary refill Abdominal: NABS x 4 quadrants, soft, nondistended, nontender to palpation, no rebound or guarding Extremities: LLE edema around calf, behind the knee and up medial upper thigh, otherwise RLE no erythema, normal inspection, no peripheral edema, Right calf nontender to palpation Psych: Normal mood and affect Neuro: AAO x 3, strength intact bilaterally and rated 5/5, no motor deficits, speech is clear, no peripheral sensory deficits Principal Diagnosis Acute left lower extremity deep vein thrombosis Constipation Discharge Data Allergies Allergy/AdvReac Type Severity Reaction Status Date / Time kiwi Allergy Severe ANAPHYLAXIS Verified 06/10/21 08:46 tree nut Allergy Severe Anaphylaxis Verified 06/10/21 08:46 metronidazole Allergy Intermediate hives Verified 06/10/21 08:46 prochlorperazine AdvReac Severe SEVERE Verified 06/10/21 08:46 DYSTONIA Consultations 06/10/21 10:37 ED Decision to Admit Stat 06/10/21 11:41 Consult Hematology Routine Ordered Studies 06/10/21 08:49 US venous doppler LE LT Stat 06/10/21 10:37 CT angio chest PE protocol Stat 06/12/21 02:30 CT head/brain wo con Urgent 06/12/21 02:55 CT abd pelvis IV con only Urgent Hospital Course (1) Acute deep vein thrombosis of left lower extremity: Acute left lower extremity DVT H/O multiple DVTs, PEs in the past H/O factor V Leyden mutation -Venous Doppler: No change in the chronic nonocclusive thrombus within the left lower extremities described above. Interval development of acute DVT within the left posterior tibial and peroneal veins. -CTA:No evidence of pulmonary embolism. -Developed DVT while on Coumadin in the past -Follows with [facility] hematology -Currently taking Xarelto 15 mg daily instead of 20 mg daily -Received IV heparin Discussed with hematology Dr. Geremias Turpin on 06/11/21 -We will plan to increase Xarelto to 15 BID for 3 weeks and then transition to 20 mg daily with food upon discharge Will need follow-up with Hematology upon discharge IV heparin transitioned to Xarelto Constipation Likely due to pain meds Had Small BP, denies nausea, vomiting, Abd pain Continue bowel regimen Minimize narcotics as able Migraine Continue home medications CT head showed no acute findings (2) History of factor V Leiden mutation: - first DVT occurred at age 18 and was placed on coumadin at that time - Follow with outpt hematology (3) Anxiety: - lorazepam as needed for anxiety (4) Tobacco use: -Patient has smoked throughout her adult life on and off smoking cessation encouraged DVT Px: heparin drip>>Xarelto CODE STATUS: Full code Total Time Total Time Spent Total Time Spent (In Minutes): 47 minutes Discharge Plan Discharge Items Patient Disposition: Home - Self-Care Reason For Visit: DVT Discharge Diagnosis: Acute left lower extremity deep vein thrombosis Constipation Activity: Per Instructions section Exercise/Sports: Wait until after follow-up appointment Non-emergency contact: Primary Care Provider and Specialist Call non-emergency contact if: you have any medication questions, your symptoms worsen, your pain is concerning for you and you have a fever Follow-up/Referrals: Rula Turpin MD [Primary Care Provider] - (Date & Time 06/16/2021 8:20 AM Provider Greg Barrett PA-C Department General Internal Medicine [facility] ) Diet: Heart Healthy Addtl Attending Provider Instructions: Follow-up with your primary care physician Dr. Rula Turpin on 06/16/2021 8:20 AM Follow-up with your software development analyst Dr. Geremias Turpin in 3-4 weeks as advised ----Consider to get venous Doppler study to further assess your deep vein thrombosis of lower extremity in 1 week as advised ---Start taking Xarelto 15 mg twice daily with food for 21 days followed by 20 mg once daily with food. ---Do not take group of medications belonging to NSAIDs group -can increase your risk for Bleeding while on Xarelto. List Of these medications includes but not limited to: Aspirin Diclofenac Ibuprofen, Motrin, Advil Toradol,ketorolac Naproxen, Aleve, Naprosyn You can take Tylenol as needed for pain or fever When buying [id number] pain medications please consult with pharmacy if you are not sure regarding ingredients, as a lot of the pain medications have combination of NSAIDs and Tylenol. ---Quit smoking Tobacco as advised. Seek immediate medical attention if your symptoms reoccur or worsen Please take all medications as instructed on discharge list below. Please call if you have any questions or problems. You can reach a [facility] hospitalist on duty at [facility] 24 hours a day by calling [phone] Pending Studies at Discharge: No Stand-Alone Forms: My [facility], Work/School Release, Smoking Cessation Medications and DC Order Prescriptions: New polyethylene glycol 3350 [Miralax] 17 gram Powder In Packet 17 g PO DAILY PRN (Reason: constipation) Qty: 14 RF: 0 Xarelto 20 mg tablet 20 mg PO UD Qty: 30 RF: 1 Continued sumatriptan succinate 50 mg tablet 50 mg PO UD PRN (Reason: Migraine Headache) RF: 0 lorazepam 0.5 mg tablet 0.5 mg PO TID PRN (Reason: Anxiety) RF: 0 topiramate 200 mg tablet 200 mg PO BID RF: 0 albuterol sulfate 90 mcg/actuation Hfa Aerosol Inhaler 2 puff INHALATION QID PRN (Reason: Shortness Of Breath Or Wheezing) RF: 0 fluoxetine 40 mg capsule 40 mg PO QAM RF: 0 Probiotic 3 billion cell Capsule 0 mmu cells PO QAM RF: 0 ondansetron HCl [Zofran] 4 mg tablet 4 mg PO Q6H PRN (Reason: nausea and vomiting) Qty: 20 RF: 0 hydrocodone-acetaminophen 5-325 mg tablet 1 tab PO Q6H PRN (Reason: Pain) RF: 0 dicyclomine 20 mg tablet 20 mg PO TID PRN (Reason: IBS) RF: 0 tamsulosin 0.4 mg Capsule 0.4 mg PO QAM Qty: 7 RF: 0 phenazopyridine [Pyridium] 200 mg Tablet 200 mg PO TID PRN (Reason: pain) Qty: 12 RF: 0 pantoprazole 40 mg tablet,delayed release (DR/EC) 40 mg PO QAM RF: 0 docusate sodium 100 mg Tablet 100 mg PO BID PRN (Reason: Constipation) Qty: 30 RF: 0 Changed Xarelto 15 mg tablet 15 mg PO UD Qty: 0 RF: 0 Discontinued ibuprofen 200 mg Tablet 800 mg PO Q6H PRN (Reason: Pain) RF: 0 Discharge Orders: Discharge Order (Routine); Ordered 06/13/21 Ordered By: Sy Pandya Admission Data Admit Date/Time: 06/10/21 10:41 Attending Provider: Sy Pandya Admit Provider: Charanjit Richardson Primary Care Provider: Rula Turpin Other Providers: Charanjit Richardson ; Geremias Turpin
== END 2021-06-13 13:19 | disposition home or self-care (01) | DRG 300 ==
LOC: ED 08:30 → SUATTDRO 10:41 → EDINP 10:41 → 2S 13:39 → 3N 06-12 17:15

== ENCOUNTER 2024-07-17 14:31 | Inpatient (IN) ==
--- NOTE | 2024-07-17 14:36 | ED Triage Note ---
Date of Service July 17, 2024 Provider in Triage Author: Thierno Mederos History of Present Illness This patient was briefly evaluated while in triage. An abbreviated physical exam was performed. This patient is a 53-year-old Female, history of factor V, pulmonary emboli and DVTs, who presents to the ED for evaluation of left foot pain. The patient reports that her leg and foot are swollen. Patient reports that the foot is also hypersensitive. Patient is currently on Xarelto. The patient rates her discomfort a 10 out of 10. I did review the patient's prior ultrasound result, showing an interval decrease in left leg DVT. There is residual DVT involving the left peroneal vein. Physical Exam CONSTITUTIONAL: Healthy and well nourished. Patient appears in moderate discomfort. MUSCULOSKELETAL: Patient has an Dionte wrap and compression stocking on the leg and foot. These were not removed in triage. HEMATOLOGIC: No ecchymosis or petechiae. PSYCHIATRIC: Flat affect. Initial orders for labs and / or imaging were placed and patient was placed in the waiting area until a bed is available. Please see further documentation for the full ED course.
[2024-07-17 15:13] LABS: Basophils # (auto) 0.07 K/uL (0.00-0.20); Basophils % (auto) 0.8 %; Eosinophils # (auto) 0.24 K/uL (0.00-0.50); Eosinophils % (auto) 2.6 %; Hematocrit (blood only) 45.9 % (37.0-47.0); Immature Granulocytes # (auto) 0.06 K/uL (0.01-0.20); Immature Granulocytes % (auto) 0.7 %; Lymphocytes # (auto) 2.93 K/uL (1.20-3.40); Lymphocytes % (auto) 32.1 %; Mean Corpuscular Hemoglobin 31.6 pg (25.0-34.0); Mean Corpuscular Hgb Conc 34.9 g/dL (32.0-36.0); Mean Corpuscular Volume 90.7 fL (80.0-100.0); Mean Platelet Volume 9.7 fL (9.4-12.4); Monocytes # (auto) 0.74 K/uL (0.11-0.59); Monocytes % (auto) 8.1 %; Neutrophils # (auto) 5.08 K/uL (1.40-6.50); Neutrophils % (auto) 55.7 %; Platelet Count 195 K/uL (130-400); RDW Coefficient of Variation 12.3 % (11.5-14.5); Red Blood Count 5.06 M/uL (4.20-5.40); White Blood Count 9.12 K/ul (4.8-10.8)
[2024-07-17 15:34] LABS: Alanine Aminotransferase 27 U/L (7-52); Albumin Globulin Ratio 1.6 (0.9-2); Albumin Level 4.4 gm/dl (3.4-5.0); Alkaline Phosphatase 51 U/L (34-104); Anion Gap 9 (3-11); Aspartate Aminotransferase 27 U/L (13-39); BUN Creatinine Ratio 22.2 (10-20); Bilirubin,Total 0.5 mg/dl (0.2-1.0); Blood Urea Nitrogen 20 mg/dl (6-23); Carbon Dioxide 18 mmol/L (21-32); Chloride 109 mmol/L (98-107); Creatinine Clr Calc Pharmacy 73.4 ml/min; Globulin 2.7 gm/dl (2.5-4.0); Glucose 110 mg/dl (70-99(Fasting)); Potassium 4.4 mmol/L (3.5-5.1); Sodium 136 mmol/L (136-145); Total Protein 7.1 gm/dl (6.0-8.3)
[2024-07-17] MEDS: oxyCODONE HCL IR 5 MG TAB (IMMEDIATE RELEASE) PO STA (19:10)
--- NOTE | 2024-07-17 19:19 | Emergency Department Note ---
Impression & Plan Left foot pain, Left leg swelling, Factor V Leiden mutation ED Provider Note NAME: DEVIN SIFUENTES AGE: 53 SEX: F : 1970 ARRIVES VIA: Walk-In INFORMANT: Patient, ED PROVIDER(S): Latasha Turpin MD CHIEF COMPLAINT: Foot pain, left HPI: This is a 53-year-old female presenting for foot pain. Patient states that she has had surgery on this previously in April. She notes that he has not had any recent trauma. She was here few days ago and had negative x-ray. She is showed chronic and decreasing DVT but otherwise notes no symptoms. She states that she has been in persistent pain, not improving. She notes that it is very tender to the touch upon palpation. It is somewhat swollen. She reports unable to do daily activities as result of this. ROS: See above HPI for pertinent positives & negatives. A total of 10 systems reviewed and were otherwise negative. PAST MEDICAL HISTORY: See Below PAST SURGICAL HISTORY: See Below FAMILY HISTORY: See Below SOCIAL HISTORY: See Below HOME MEDICATIONS: See Below ALLERGIES: See Below VITALS: See Below PHYSICAL EXAMINATION: General: Tearful, acute distress due to pain Head: Normocephalic and atraumatic Eyes: Normal inspection, extraocular muscles intact Ear, nose, throat: Normal external exam Neck: Normal range of motion Respiratory: lungs clear to auscultation bilaterally Cardiovascular: Regular rate/rhythm, no murmur GI: soft, nontender, no guarding or rebound Extremities: Excessively tender to the touch of the left foot, no overlying erythema, 2+ pulses, less than 2-second cap refill Neuro: The patient awake and alert, appropriately conversive, no focal deficits, symmetric faces Skin: Warm, dry, and intact MEDICAL DECISION MAKING: This is a 53-year-old female seen for left foot pain. Patient notes pain that is in the foot as well as now in the groin/thigh. She is concerned about new DVT. She does take Xarelto for factor V Leiden. She has had previous DVTs. Last DVT was multiple years ago. -Bloodwork is reviewed showing no significant leukocytosis, anemia, electrolyte or creatinine abnormality Will do repeat DVT study as well as arterial study. Low concern for acute arterial thrombus clinically but she is in exquisite pain. Compartments are soft without tenderness. No new trauma or deformities are noted. -Scans are both negative for new DVT or arterial occlusion -Patient continues to endorse significant pain not controlled by oral medications here. Will admit for further pain control and workup -Care discussed with Dr. Arce, hospitalist for admission Differential diagnosis: Arterial occlusion, fracture, DVT Diagnostics interpreted by me: ECG: None Cardiac Monitoring: An order was placed for continuous cardiac monitoring. The monitor shows a rate of with rhythm. Past Med/Surg History Problem List (Updated 07/18/24 @ 00:14 by Latasha Turpin MD) Chronic pain syndrome Complex regional pain syndrome i of left lower limb Left foot pain (Acute) Factor V Leiden mutation (Acute) Asthma Bipolar I disorder, single manic episode Edema of left lower extremity (Acute) Acute deep vein thrombosis of left lower extremity (Acute) Left leg swelling (Acute) Tobacco use Anxiety Seizure disorder Last episode about 10 years ago. 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 Controlled with topamax. Recurrent deep vein thrombosis (DVT) (Chronic) Depression (Chronic) Tobacco abuse (Chronic) Ulcerative colitis (Chronic) PTSD (post-traumatic stress disorder) (Chronic) Medical History Cervicalgia Bipolar disorder, unspecified COVID-19 Hydronephrosis with urinary obstruction due to ureteral calculus Suicidal ideation Asthma Not using inhaler on a regular basis. Denies having any h/o hospitalization or intubation due to asthma Chronic anticoagulation Surgical History Hx of tonsillectomy H/O tubal ligation History of cholecystectomy Hx of foot surgery closed avulsion fx of metatarsal bone of left foot, left tear of peroneal tendon who underwent ORIF of 5th metatarsal. 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 Required: No Beliefs That Will Affect Care: None marital status: Current Living Situation: Alone current occupational status: employed Feels Safe at Home: Yes Assistive Devices: None Allergies Allergies Allergy/AdvReac Type Severity Reaction Status Date / Time kiwi Allergy Severe ANAPHYLAXIS Verified 07/17/24 19:38 prochlorperazine Allergy Severe SEVERE Verified 07/17/24 19:38 DYSTONIA tree nut Allergy Severe Anaphylaxis Verified 07/17/24 19:38 metronidazole Allergy Intermediate hives Verified 07/17/24 19:38 Home Meds Home Medications Medication Instructions Recorded Confirmed albuterol sulfate 90 mcg/actuation 2 puff inhalation QID PRN 06/02/18 07/17/24 aerosol inhaler Shortness Of Breath Or Wheezing sumatriptan succinate 50 mg tablet 50 mg PO UD PRN Migraine Headache 06/02/18 07/17/24 topiramate 200 mg tablet 200 mg PO BID 06/02/18 07/17/24 fluoxetine 40 mg capsule 40 mg PO QAM 10/25/18 07/17/24 lactobacillus combination no.4 3 0 mmu cells PO QAM 08/10/19 07/17/24 billion cell capsule (Probiotic) dicyclomine 20 mg tablet 20 mg PO TID PRN IBS 04/05/21 07/17/24 ondansetron HCl 4 mg tablet 4 mg PO Q6H PRN Nausea 07/12/21 07/17/24 rivaroxaban 20 mg tablet (Xarelto) 20 mg PO QDD 07/12/21 07/17/24 gabapentin 100 mg capsule 400 mg PO TID 07/17/24 07/17/24 oxycodone 5 mg tablet 5 mg PO Q6H PRN Pain 07/17/24 07/17/24 Previous Rx's Medication Instructions Recorded docusate sodium 100 mg tablet 100 mg PO BID PRN Constipation #30 06/13/21 tabs Results & Data (ED) Vital Signs Vital Signs - 24 hr 07/17/24 14:32 07/17/24 19:00 Temperature 36.6 C Temperature Source Temporal Artery Scan Pulse Rate 92 H Pulse Rate [Finger] 62 Pulse Strength [Finger] Normal Respiratory Rate 18 19 Respiratory Effort / Characteristics Non-Labored Spontaneous Respiratory Depth Normal Respiratory Pattern Regular Blood Pressure 142/98 H Blood Pressure [Left Arm] 117/65 Blood Pressure Mean 112 Blood Pressure Mean [Left Arm] 82 Blood Pressure Position [Left Arm] Sitting Pulse Oximetry 97 99 Oxygen Delivery Method Room Air Sepsis Recent Fever Within 48 Hours No Sepsis New/Unexplained Change in Mental Status N/A Sepsis Action Taken by Nursing No Action Required Laboratory Data 07/17/24 14:56 07/17/24 14:56 Lab Results 07/17/24 Range/Units 14:56 WBC 9.12 (4.8-10.8) K/ul RBC 5.06 (4.20-5.40) M/uL Hgb 16.0 (12.0-16.0) g/dl Hct 45.9 (37.0-47.0) % MCV 90.7 (80.0-100.0) fL MCH 31.6 (25.0-34.0) pg MCHC 34.9 (32.0-36.0) g/dL RDW Std Deviation 40.0 (36.4-46.3) fL RDW Coeff of Vik 12.3 (11.5-14.5) % Plt Count 195 (130-400) K/uL MPV 9.7 (9.4-12.4) fL Immature Gran % (Auto) 0.7 % Neut % (Auto) 55.7 % Lymph % (Auto) 32.1 % [place] % (Auto) 8.1 % Eos % (Auto) 2.6 % Baso % (Auto) 0.8 % Neut # (Auto) 5.08 (1.40-6.50) K/uL Lymph # (Auto) 2.93 (1.20-3.40) K/uL [place] # (Auto) 0.74 H (0.11-0.59) K/uL Eos # (Auto) 0.24 (0.00-0.50) K/uL Baso # (Auto) 0.07 (0.00-0.20) K/uL Immature Gran # (Auto) 0.06 (0.01-0.20) K/uL ESR 7 (0-30) mm/hr Sodium 136 (136-145) mmol/L Potassium 4.4 (3.5-5.1) mmol/L Chloride 109 H (98-107) mmol/L Carbon Dioxide 18 L (21-32) mmol/L Anion Gap 9 (3-11) BUN 20 (6-23) mg/dl Creatinine 0.90 (0.6-1.2) mg/dl Est Cr Clr Drug Dosing 73.4 ml/min eGFR 77.40 BUN/Creatinine Ratio 22.2 H (10-20) Glucose 110 H (70-99(Fasting)) mg/dl Calcium 9.0 (8.6-10.3) mg/dl Total Bilirubin 0.5 (0.2-1.0) mg/dl AST 27 (13-39) U/L ALT 27 (7-52) U/L Alkaline Phosphatase 51 (34-104) U/L C-Reactive Protein < 0.50 (0-0.5) mg/dl Total Protein 7.1 (6.0-8.3) gm/dl Albumin 4.4 (3.4-5.0) gm/dl Globulin 2.7 (2.5-4.0) gm/dl Albumin/Globulin Ratio 1.6 (0.9-2) Administered Medications Acetaminophen (Acetaminophen 325 Mg Tab) 650 mg PO Q4H PRN PRN Reason: pain/fever Stop: 08/16/24 22:03 Last Admin: 07/17/24 23:11 Dose: 650 mg Documented By: JAYNA Diclofenac Sodium (Diclofenac Sod 1% Gel 100 Gm Tube) 2 gm EXT QID [facility]; Protocol Stop: 08/16/24 22:03 Last Admin: 07/17/24 22:54 Dose: 2 gm Documented By: LU Pregabalin (Pregabalin 75 Mg Cap) 75 mg PO TID [facility] Stop: 08/16/24 22:03 Last Admin: 07/17/24 22:53 Dose: 75 mg Documented By: LU Topiramate (Topiramate 100 Mg Tab) 200 mg PO BID [facility] Stop: 08/16/24 22:03 Last Admin: 07/17/24 22:53 Dose: 200 mg Documented By: LU Discontinued Medications Hydromorphone HCl (Hydromorphone Hcl 2 Mg Tab) 2 mg PO NOW STA Stop: 07/17/24 20:45 Last Admin: 07/17/24 20:54 Dose: 2 mg Documented By: LU Ketorolac Tromethamine (Ketorolac Tromethamine 15 Mg/Ml Vial) 15 mg IV NOW ONE Stop: 07/17/24 20:45 Last Admin: 07/17/24 20:54 Dose: 15 mg Documented By: LU Oxycodone HCl (Oxycodone Hcl Ir 5 Mg Tab (Immediate Release)) 10 mg PO NOW STA Stop: 07/17/24 19:06 Last Admin: 07/17/24 19:10 Dose: 10 mg Documented By: LU Rivaroxaban (Rivaroxaban 20 Mg Tab) 20 mg PO ONE ONE Stop: 07/17/24 22:52 Last Admin: 07/17/24 23:09 Dose: 20 mg Documented By: JAYNA Imaging Data Radiologist's Impression: Duplex Scan Lower Extremity Artery 07/17/24 18:14 Exam(s): US ARTERIAL LEFT LOWER EXTREMITY EXAM: US Duplex Left Lower Extremity Arteries CLINICAL HISTORY: Reason for exam: factor V, blood clots in past. TECHNIQUE: Real-time duplex ultrasound scan of the left lower extremity arteries integrating B-mode two-dimensional vascular structure, Doppler spectral analysis and color flow Doppler imaging. COMPARISON: No relevant prior studies available. FINDINGS: Left common femoral artery: No acute findings. No occlusion or significant stenosis on color flow and spectral Doppler imaging. Normal waveform. Left superficial femoral artery: No acute findings. No occlusion or significant stenosis on color flow and spectral Doppler imaging. Normal waveform. Left popliteal artery: No acute findings. No occlusion or significant stenosis on color flow and spectral Doppler imaging. Normal waveform. Left calf/foot arteries: No acute findings. No occlusion or significant stenosis on color flow and spectral Doppler imaging. Normal waveform. Soft tissues: Unremarkable. IMPRESSION: No arterial occlusion or flow-limiting stenosis. Electronically signed by: Mango Maguire MD 07/17/24 19:27 PM Venous Doppler Study 07/17/24 18:14 Exam(s): US VENOUS LEFT LOWER EXTREMITY EXAM: US Duplex Left Lower Extremity Veins CLINICAL HISTORY: Reason for exam: inc pain in thigh/groin, similar to previous DVT. TECHNIQUE: Real-time duplex ultrasound scan of the left lower extremity veins integrating B-mode two-dimensional vascular structure, Doppler spectral analysis, color flow Doppler imaging and compression. COMPARISON: No relevant prior studies available. FINDINGS: Deep veins: Synechiae visualized within the mid to distal femoral vein and peroneal vein, sequela of prior DVT. All veins are compressible. No acute appearing thrombus in the left lower extremity veins. Superficial veins: Unremarkable. No thrombus identified in the GSV. Soft tissues: No acute findings. IMPRESSION: 1. No acute appearing thrombus in the left lower extremity veins. 2. Synechiae visualized within the mid to distal femoral vein and peroneal vein, sequela of prior DVT. Electronically signed by: Mango Maguire MD 07/17/24 20:01 PM Discharge Plan Visit Data Chief Complaint: Foot Injury/Pain Stated Complaint: LT FOOT PAIN ED Provider: Latasha Turpin Discharge Problem: Left foot pain, Left leg swelling, Factor V Leiden mutation Patient Disposition: Admitted As Inpatient Discharge Instructions Interventions: ED Discharge Assessment Last Done: 07/17/24 21:49
--- NOTE | 2024-07-17 19:28 | Ultrasound Report ---
Exam(s): US ARTERIAL LEFT LOWER EXTREMITY EXAM: US Duplex Left Lower Extremity Arteries CLINICAL HISTORY: Reason for exam: factor V, blood clots in past. TECHNIQUE: Real-time duplex ultrasound scan of the left lower extremity arteries integrating B-mode two-dimensional vascular structure, Doppler spectral analysis and color flow Doppler imaging. COMPARISON: No relevant prior studies available. FINDINGS: Left common femoral artery: No acute findings. No occlusion or significant stenosis on color flow and spectral Doppler imaging. Normal waveform. Left superficial femoral artery: No acute findings. No occlusion or significant stenosis on color flow and spectral Doppler imaging. Normal waveform. Left popliteal artery: No acute findings. No occlusion or significant stenosis on color flow and spectral Doppler imaging. Normal waveform. Left calf/foot arteries: No acute findings. No occlusion or significant stenosis on color flow and spectral Doppler imaging. Normal waveform. Soft tissues: Unremarkable. IMPRESSION: No arterial occlusion or flow-limiting stenosis. Electronically signed by: Mango Maguire MD 07/17/24 19:27 PM
--- NOTE | 2024-07-17 20:02 | Ultrasound Report ---
Exam(s): US VENOUS LEFT LOWER EXTREMITY EXAM: US Duplex Left Lower Extremity Veins CLINICAL HISTORY: Reason for exam: inc pain in thigh/groin, similar to previous DVT. TECHNIQUE: Real-time duplex ultrasound scan of the left lower extremity veins integrating B-mode two-dimensional vascular structure, Doppler spectral analysis, color flow Doppler imaging and compression. COMPARISON: No relevant prior studies available. FINDINGS: Deep veins: Synechiae visualized within the mid to distal femoral vein and peroneal vein, sequela of prior DVT. All veins are compressible. No acute appearing thrombus in the left lower extremity veins. Superficial veins: Unremarkable. No thrombus identified in the GSV. Soft tissues: No acute findings. IMPRESSION: 1. No acute appearing thrombus in the left lower extremity veins. 2. Synechiae visualized within the mid to distal femoral vein and peroneal vein, sequela of prior DVT. Electronically signed by: Mango Maguire MD 07/17/24 20:01 PM
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
[2024-07-17] MEDS: KETOROLAC TROMETHAMINE 15 MG/ML VIAL IV ONE (20:54)
[2024-07-17] MEDS: HYDROmorphone HCL 2 MG TAB PO STA (20:54)
[2024-07-17] MEDS ORDERED: POLYETHYLENE (MIRALAX) 17 GM PACK PO PRN (22:04)
[2024-07-17] MEDS ORDERED: DICYCLOMINE HCL 20 MG TAB PO PRN (22:04)
[2024-07-17] MEDS ORDERED: ONDANSETRON INJ 2 MG/ML 2 ML VIAL IV PRN (22:04)
[2024-07-17] MEDS ORDERED: DOCUSATE SODIUM 100 MG CAP PO PRN (22:07)
[2024-07-17 22:33] LABS: C Reactive Protein < 0.50 mg/dl (0-0.5)
[2024-07-17] MEDS: PREGABALIN 75 MG CAP PO SCH (22:53)
[2024-07-17] MEDS: TOPIRAMATE 100 MG TAB PO SCH (22:53)
[2024-07-17] MEDS: DICLOFENAC SOD 1% GEL 100 GM TUBE EXT SCH (22:54)
[2024-07-17] MEDS: RIVAROXABAN 20 MG TAB PO ONE (23:09)
[2024-07-17] MEDS: ACETAMINOPHEN 325 MG TAB PO PRN (23:11)
--- NOTE | 2024-07-18 03:03 | Magnetic Resonance Report ---
Exam(s): MRI LEFT FOOT Without Contrast EXAM: MR Left Lower Extremity Without Intravenous Contrast, Foot CLINICAL HISTORY: Reason for exam: pain, hx of fracture. TECHNIQUE: Multiplanar magnetic resonance images of the left foot without intravenous contrast. COMPARISON: X-ray left foot: 07/14/2024 FINDINGS: Diagnostic sensitivity of the exam is reduced by motion artifact. Bones/joints: No acute fracture. Postsurgical-like changes are seen proximally in the fifth metatarsal with associated linear areas of marrow edema and with cutaneous/subcutaneous soft tissue edema/swelling over the midfoot dorsally/laterally. Lisfranc: Unremarkable. Small intertarsal joint effusion. Mild/moderate osteoarthrosis of the MTP articulation of the hallux. Muscles, ligaments and tendons: The muscles and the tendinous insertions are unremarkable. The ligaments of the mid/forefoot are intact. The plantar fascia appears normal. . IMPRESSION: No evidence of acute fracture or dislocation noted. Postsurgical-like changes in the proximal fifth metatarsal bone seen with associated smaller areas of marrow edema and with corresponding/surrounding cutaneous/subcutaneous soft tissue edema and swelling . . Electronically signed by: Alton Nj MD, STEPHON 07/18/24 03:02 AM
[2024-07-18] MEDS: HYDROmorphone HCL 2 MG TAB PO PRN ×2 (03:16→17:22)
[2024-07-18] MEDS: KETOROLAC TROMETHAMINE 15 MG/ML VIAL IV ONE (05:46)
[2024-07-18] MEDS: KETOROLAC TROMETHAMINE 15 MG/ML VIAL ONE (05:47)
[2024-07-18] MEDS: FLUoxetine HCL 20 MG CAP PO SCH (08:41)
[2024-07-18] MEDS: KETOROLAC TROMETHAMINE 15 MG/ML VIAL IV PRN (11:42)
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
[2024-07-18] MEDS ORDERED: methylPREDNISolone 4 MG TAB, 6 DAY TAPER PO SCH (15:00)
--- NOTE | 2024-07-18 15:06 | Pain Management Consultation ---
Date of Consultation July 18, 2024 Assessment & Plan (1) Chronic pain syndrome: (2) Complex regional pain syndrome i of left lower limb: (3) Lumbar radicular pain: (4) Left foot pain: (5) Factor V Leiden mutation: (6) Bipolar I disorder, single manic episode: Plan 1. Patient presenting with left foot pain status post 2 separate surgical procedures occurring within approximately 4-5 weeks of each other with the first occurring in March and second occurring in April with pain worsening after the second surgery of uncertain etiology. She does have some radicular pattern pain which she indicates is chronic although recently increased in severity per her report previously thought to be related to history of clot burden chronically from her history of DVT/factor V Leiden mutation. Will request lumbar MRI to rule out lumbar herniated disc and radiculopathy component to her current pain. If MRI fails to reveal evidence of lumbar disc herniation consistent with radicular pattern pain would more strongly consider complex regional pain as etiology. Triple phase bone scanning could be completed in the outpatient setting versus lumbar sympathetic block. This was discussed at length with patient. 2. Recommend a Medrol Dosepak-orders placed 3. Recommend a trial of baclofen 10 mg 3 times daily-orders placed 4. Recommend she maintain pregabalin of 75 mg 3 times daily. Would consider further titration in outpatient setting pending response. 5. Potentially consider transition from fluoxetine to duloxetine in the outpatient setting and attempt improved pain control 6. Will initiate a trial of Nucynta 50 mg every 4 hours for as needed breakthrough pain 7. Recommend continuation of Toradol IV for as needed breakthrough pain which appears to be providing the most significant relief at this time 8. There is no role for interventional pain management at this time during this current admission. Patient will maintain planned outpatient pain management consultation with Lily for further evaluation and recommendations regarding her potential candidacy for interventional treatment such as lumbar sympathetic block should complex regional pain syndrome remain the suspected diagnosis Thank you for allowing us to participate in the care of Mrs. Pierce History of Present Illness Reason for Consultation: Intractable left ankle/foot pain and left radicular pain Requesting Physician: Gurwinder Bartholomew MD Attending Physician: Gurwinder Bartholomew MD History of Present Illness Mrs. Renae is a 53-year-old white female who was admitted with intractable left ankle and foot pain as well as complaints of left lower extremity radicular pain traveling from the gluteal area in a predominant L5 versus S1 distribution through the posterior thigh and calf. Patient reports a history of chronic pain in the left lower extremity for greater than 20 years duration reportedly related to her history of clot burden from factor V Leiden mutation and multiple DVTs as well as history of PE. The patient has been on chronic Xarelto therapy relating to the factor V Leiden mutation and has not experienced any recent DVT or PE. The patient had an injury with a left foot fracture which led to surgical procedure with orthopedics in [facility] in March. She then suffered a fall onto her left side with resultant need for repeat surgical intervention of the left foot with ORIF with a reported history of closed avulsion fracture of metatarsal bone and left tear of peroneal tendon with hardware placement and then subsequent removal. Her fall occurred in April with the second surgery. She developed a significant increase in pain in the foot and ankle location shortly after her second surgery which has been progressive without improvement. She describes the pain as sharp, shooting, tingling and burning in characteristic involving the foot and the lateral dorsal aspect and lateral ankle. Patient describes a sensitivity to touch. She describes swelling and redness. She has not noticed excessive sweating or coldness of the extremity. She denies any change in hair growth or nail growth patterns. She reports the pain traveling through the leg is similar location and characteristic as prior but increased in severity. She has no prior history of lumbar herniated disc or any history of lumbar spine imaging even after her fall in April. She indicates minimal left-sided gluteal region pain but no significant axial low back pain. She has no right lower extremity radicular pain. She denies weakness, foot drop or bowel/bladder incontinence. She denies saddle anesthesia. Patient does report a history of chronic utilization of Darvocet initially in the outpatient setting for treatment of her chronic left leg pain associated with clot burden and then transition to hydrocodone and more recently oxycodone. Patient has been utilizing hydromorphone upon this admission with short-term benefit only. She does find relief from use of Toradol lasting for 1-2 hours only. She has not used any oral steroids recently. She has been on gabapentin 200 mg 3 times daily in the outpatient setting over the past 4-5 weeks and transitioned to pregabalin 75 mg 3 times daily today while in the hospital. She is finding the most relief from ice applied to the foot. She indicates that these medications have not been beneficial at treating her left foot pain recently. She has been referred to outpatient pain clinic by her PCP earlier this week. Plan of care discussed with Dr. Delmi Hopkins. Pain Assessment Full Body Front + Back: 2 1. Left L5 versus S1 distribution radicular pain traveling from gluteal area to the foot 2. Left dorsal lateral foot and ankle Pain scale - at its best (0-10): 4 Pain scale - at its worst (0-10): 10 Allergies Allergy/AdvReac Type Severity Reaction Status Date / Time kiwi Allergy Severe ANAPHYLAXIS Verified 07/17/24 19:38 prochlorperazine Allergy Severe SEVERE Verified 07/17/24 19:38 DYSTONIA tree nut Allergy Severe Anaphylaxis Verified 07/17/24 19:38 metronidazole Allergy Intermediate hives Verified 07/17/24 19:38 Home Medications Medication Instructions Recorded Confirmed Type albuterol sulfate 90 mcg/actuation 2 puff inhalation QID PRN 06/02/18 07/17/24 History aerosol inhaler Shortness Of Breath Or Wheezing sumatriptan succinate 50 mg tablet 50 mg PO UD PRN Migraine Headache 06/02/18 07/17/24 History topiramate 200 mg tablet 200 mg PO BID 06/02/18 07/17/24 History fluoxetine 40 mg capsule 40 mg PO QAM 10/25/18 07/17/24 History lactobacillus combination no.4 3 0 mmu cells PO QAM 08/10/19 07/17/24 History billion cell capsule (Probiotic) dicyclomine 20 mg tablet 20 mg PO TID PRN IBS 04/05/21 07/17/24 History docusate sodium 100 mg tablet 100 mg PO BID PRN Constipation #30 06/13/21 07/17/24 Rx tabs ondansetron HCl 4 mg tablet 4 mg PO Q6H PRN Nausea 07/12/21 07/17/24 History rivaroxaban 20 mg tablet (Xarelto) 20 mg PO QDD 07/12/21 07/17/24 History gabapentin 100 mg capsule 400 mg PO TID 07/17/24 07/17/24 History oxycodone 5 mg tablet 5 mg PO Q6H PRN Pain 01/23/25 01/23/25 History Pain History Pain Intensity Pain scale - at its best (0-10): 4 Pain scale - at its worst (0-10): 10 Patient History Medical History Cervicalgia Bipolar disorder, unspecified COVID-19 Hydronephrosis with urinary obstruction due to ureteral calculus Suicidal ideation Asthma Not using inhaler on a regular basis. Denies having any h/o hospitalization or intubation due to asthma Chronic anticoagulation Surgical History Hx of tonsillectomy H/O tubal ligation History of cholecystectomy Hx of foot surgery closed avulsion fx of metatarsal bone of left foot, left tear of peroneal tendon who underwent ORIF of 5th metatarsal. In April he underwent repair of peroneal brevis tendon with hardware removal in April 2024 S/P ureteral stent placement 2018 Family History Mother Dyslipidemia Social History Smoking Status: Current some day smoker Tobacco Type: Cigarettes Second Hand Exposure: No; Do You Dip or Chew Tobacco: No; Hx Alcohol Use: No Hx Substance Use: No Preferred Language: Gambian Communication Ability: Effective Cabinet Assembler Required: No Beliefs That Will Affect Care: None marital status: Current Living Situation: Parent Current Living Situation Comment: Dad current occupational status: employed Feels Safe at Home: Yes Assistive Devices: Bedside Commode, Walker and Wheelchair Physical Exam 2 Physical Exam: General: Patient was sleeping upon entering the room. She was easily arousable. Patient was in no acute distress. Speech and thought process appropriate. Mood and affect appropriate. Cognition intact. Head: Normocephalic and atraumatic. ENT: No evidence of nasal or oral mucosal lesions. Mucous membranes are moist. Eyes: Pupils equal round reactive to light. Abdomen: Soft and nondistended. No organomegaly. Bowel sounds active. Back/spine: Slight loss of lumbar lordosis. Nontender over the midline. No focal facet or SI joint tenderness. Patient is minimally tender throughout the left gluteal region. No appreciable spasm. Lower extremities: SLR reproduces some L5/S1 radicular pattern pain on the left side only. SLR negative on the right. Patient has visible edema in the dorsal midfoot and over the lateral malleolus. Patient indicates some dysesthesias and paresthesias upon palpation of the distal foot and dorsal midfoot/lateral foot. She has well-healed incision over the lateral fifth metatarsal without evidence of erythema or skin breakdown. There is no obvious discoloration of the foot. She has no obvious excessive sweating. Temperature feels similar bilaterally although slightly cool to touch as she has been applying ice. Mildly hyperalgesic over the dorsal mid and lateral foot. No overt allodynia or hyperpathia. Neurologic: Cranial nerves grossly intact. Ambulatory function not witnessed. Results (Pain Clinic) Diagnostic Review MRI Findings: [facility], [place] [phone] Magnetic Resonance Report Patient: DEVIN PIERCE Admit Date: 07/17/24 MR#: [id number] Address1: [place] [address] Acct ID:[id number] Address2: Date: [address] [facility] Zip: [place] [id number] Age: 53 Location: [facility] Sex: F Room/Bed: [place] [address]-6 Att Phy: Thierno Arce MD Diagnosis: LT FOOT PAIN Rachel Phy: Rula Turpin MD Service Date: 07/17/24 Fam Phy: Interpreting Phy: Jose Nj MDAdmit Phy: Thierno Arce MD Ordering Phy: Gracy Haley PA-C cc: ~ Exam(s): MRI LEFT FOOT Without Contrast EXAM: MR Left Lower Extremity Without Intravenous Contrast, Foot CLINICAL HISTORY: Reason for exam: pain, hx of fracture. TECHNIQUE: Multiplanar magnetic resonance images of the left foot without intravenous contrast. COMPARISON: X-ray left foot: 07/14/2024 FINDINGS: Diagnostic sensitivity of the exam is reduced by motion artifact. Bones/joints: No acute fracture. Postsurgical-like changes are seen proximally in the fifth metatarsal with associated linear areas of marrow edema and with cutaneous/subcutaneous soft tissue edema/swelling over the midfoot dorsally/laterally. Lisfranc: Unremarkable. Small intertarsal joint effusion. Mild/moderate osteoarthrosis of the MTP articulation of the hallux. Muscles, ligaments and tendons: The muscles and the tendinous insertions are unremarkable. The ligaments of the mid/forefoot are intact. The plantar fascia appears normal. . IMPRESSION: No evidence of acute fracture or dislocation noted. Postsurgical-like changes in the proximal fifth metatarsal bone seen with associated smaller areas of marrow edema and with corresponding/surrounding cutaneous/subcutaneous soft tissue edema and swelling . . Electronically signed by: Alton Nj MD, DABR 07/18/24 03:02 AM Dictated: 07/18/24 0302 Transcribed: 07/18/24 030 Radiology Findings: [facility], [place] [phone] XRay Report Patient: DEVIN PIERCE Admit Date: 07/14/24 MR#: [id number] Address1: [address] [facility] Acct ID:[id number] Address2: Date: [address] [facility] Zip: [place] [address] Age: 53 Location: ED Sex: F Room/Bed: Att Phy: Diagnosis: SWELLING IN L FOOT, NOT HEALING AFTER SURGERY Rachel Phy: Rula Turpin MD Service Date: 07/14/24 Fam Phy: Interpreting Phy: Palmer Cho MDAdmit Phy: Ordering Phy: Gemini Jovel CRNP cc: ~ Clinical History: Pain. 3 views of the left foot are submitted for review. Findings: No fracture or dislocation is seen. No significant arthritic changes are noted. There is osteopenia. No other osseous abnormality is identified. There are no radiopaque foreign bodies. Impression: 1. No definite fracture 2. Osteopenia Electronically signed by Palmer Cho 07-14-2024 4:08 PM Dictated: 07/14/24 1600 Transcribed: Other Findings: [facility], [place] [phone] Ultrasound Report Patient: DEVIN PIERCE Admit Date: 07/17/24 MR#: [id number] Address1: [address] Acct ID:[id number] Address2: Date: [address] [facility] Zip: [place] [address] Age: 53 Location: ED Sex: F Room/Bed: Att Phy: Diagnosis: LT FOOT PAIN Rachel Phy: Rula Turpin MD Service Date: 07/17/24 Jimi Phy: Interpreting Phy: Mango Maguire MDAdmit Phy: Ordering Phy: Latasha Turpin MD cc: ~ Exam(s): US VENOUS LEFT LOWER EXTREMITY EXAM: US Duplex Left Lower Extremity Veins CLINICAL HISTORY: Reason for exam: inc pain in thigh/groin, similar to previous DVT. TECHNIQUE: Real-time duplex ultrasound scan of the left lower extremity veins integrating B-mode two-dimensional vascular structure, Doppler spectral analysis, color flow Doppler imaging and compression. COMPARISON: No relevant prior studies available. FINDINGS: Deep veins: Synechiae visualized within the mid to distal femoral vein and peroneal vein, sequela of prior DVT. All veins are compressible. No acute appearing thrombus in the left lower extremity veins. Superficial veins: Unremarkable. No thrombus identified in the GSV. Soft tissues: No acute findings. IMPRESSION: 1. No acute appearing thrombus in the left lower extremity veins. 2. Synechiae visualized within the mid to distal femoral vein and peroneal vein, sequela of prior DVT. Electronically signed by: Mango Maguire MD 07/17/24 20:01 PM Dictated: 07/17/242000 Transcribed: 07/17/242000 [place], [place] [phone] Ultrasound Report Patient: DEVIN PIERCE Admit Date: 07/17/24 MR#: [id number] Address1: [place] [address] Acct ID:[id number] Address2: Date: [address] [facility] Zip: [place] [address] Age: 53 Location: ED Sex: F Room/Bed: Att Phy: Diagnosis: LT FOOT PAIN Rachel Phy: Rula Turpin MD Service Date: 07/17/24 Jimi Phy: Interpreting Phy: Mango Maguire MDAdmit Phy: Ordering Phy: Latasha Turpin MD cc: ~ Exam(s): US ARTERIAL LEFT LOWER EXTREMITY EXAM: US Duplex Left Lower Extremity Arteries CLINICAL HISTORY: Reason for exam: factor V, blood clots in past. TECHNIQUE: Real-time duplex ultrasound scan of the left lower extremity arteries integrating B-mode two-dimensional vascular structure, Doppler spectral analysis and color flow Doppler imaging. COMPARISON: No relevant prior studies available. FINDINGS: Left common femoral artery: No acute findings. No occlusion or significant stenosis on color flow and spectral Doppler imaging. Normal waveform. Left superficial femoral artery: No acute findings. No occlusion or significant stenosis on color flow and spectral Doppler imaging. Normal waveform. Left popliteal artery: No acute findings. No occlusion or significant stenosis on color flow and spectral Doppler imaging. Normal waveform. Left calf/foot arteries: No acute findings. No occlusion or significant stenosis on color flow and spectral Doppler imaging. Normal waveform. Soft tissues: Unremarkable. IMPRESSION: No arterial occlusion or flow-limiting stenosis. Electronically signed by: Mango Maguire MD 07/17/24 19:27 PM Dictated: 07/17/241926 Transcribed: 07/17/241926 Previous Records Review Previous Records: personally reviewed by me
[2024-07-18] MEDS: methylPREDNISolone 4 MG TAB PO SCH ×2 (17:12)
--- NOTE | 2024-07-18 18:41 | Magnetic Resonance Report ---
Lumbar spine MRI without IV contrast History: Radiculopathy Comparison: None Technique: Sagittal T1-weighted, sagittal STIR, 3D volumetric axial and sagittal reconstructed T2-weighted images of the lumbar spine were obtained without intravenous contrast. Findings: There are 5 lumbar-type vertebrae assumed for the purposes of this dictation. The tip of the conus medullaris is at L1. Normal lumbar vertebral alignment. There is slight disc height loss and slight disc degeneration appreciated at L3-4 and L4-5.. Normal marrow signal. There is straightening of the lumbar lordotic curvature, which may be seen with muscular spasm. The thecal sac has a somewhat partially empty appearance, with the cauda equina nerve roots appearing adherent to the periphery. On a level by level basis: T12-L1: No spinal canal or neuroforaminal stenosis. L1-2: No spinal canal or neuroforaminal stenosis. L2-3: No spinal canal or neuroforaminal stenosis. L3-4: No spinal canal or neuroforaminal stenosis. L4-5: No spinal canal or neuroforaminal stenosis. L5-S1: No spinal canal or neuroforaminal stenosis. Paraspinous tissues are within normal limits. Note: The following findings are common in the absence of low back pain and while we report their presence, they must be interpreted with caution and in the context of the clinical situation. (Reference -Jarvik et al, Spine 2001) Findings (prevalence in patients without low back pain) Disc degeneration (decreased T2 signal, height loss, bulge) (91%) Disc T2 - signal loss (83%) Disc height loss (56%) Disc bulge (64%) Disc protrusion (32%) Annular tear (38%). Impression: No acute bony abnormality of the lumbar spine. No substantial neuroforaminal or spinal canal stenosis. There is straightening of the lumbar lordotic curvature which may be seen with muscular spasm. The cauda equina nerve roots appear deviated towards the periphery of the thecal sac, with a somewhat empty thecal sac appearance, which may be seen with adhesive arachnoiditis. Electronically signed by Tristen Washington 07-18-2024 6:38 PM
[2024-07-18] MEDS: RIVAROXABAN 20 MG TAB PO SCH (19:10)
[2024-07-18] MEDS: hydrOXYzine HCl 25 MG TAB PO PRN (19:12)
[2024-07-18] MEDS: BACLOFEN 10 MG TAB PO SCH (20:10)
[2024-07-18] MEDS: TAPENTADOL HCL 50 MG TAB PO PRN (23:21)
[2024-07-18 23:24] VITALS: O2SAT 96
[2024-07-19] MEDS: BACLOFEN 10 MG TAB PO STA (06:18)
[2024-07-19 06:53] LABS: Hematocrit (blood only) 41.8 % (37.0-47.0); Hemoglobin 14.8 g/dl (12.0-16.0); Mean Corpuscular Hemoglobin 32.7 pg (25.0-34.0); Mean Corpuscular Hgb Conc 35.4 g/dL (32.0-36.0); Mean Corpuscular Volume 92.5 fL (80.0-100.0); Mean Platelet Volume 9.7 fL (9.4-12.4); Platelet Count 176 K/uL (130-400); RDW Coefficient of Variation 11.9 % (11.5-14.5); RDW Standard Deviation 40.2 fL (36.4-46.3); Red Blood Count 4.52 M/uL (4.20-5.40); White Blood Count 7.59 K/ul (4.8-10.8)
[2024-07-19 07:15] LABS: BUN Creatinine Ratio 27.8 (10-20); Calcium 8.9 mg/dl (8.6-10.3); Creatinine Clr Calc Pharmacy 68.1 ml/min; Magnesium 1.8 mg/dl (1.7-2.4); Phosphorus 3.7 mg/dl (2.5-4.9); Potassium 4.3 mmol/L (3.5-5.1)
[2024-07-19] MEDS: methylPREDNISolone 4 MG TAB PO SCH ×2 (08:30→22:00)
[2024-07-19] MEDS: FAMOTIDINE 20 MG TAB PO SCH (11:47)
[2024-07-19] MEDS: FLUCONAZOLE 50 MG TAB PO ONE (13:20)
[2024-07-19] MEDS: BACLOFEN 10 MG TAB PO SCH (13:21)
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
[2024-07-19 19:31] VITALS: RESP 16
[2024-07-20] MEDS: KETOROLAC TROMETHAMINE 15 MG/ML VIAL IV ONE (03:13)
--- NOTE | 2024-07-20 03:27 | Communication Note ---
Date of Service: July 20, 2024
--- NOTE | 2024-07-20 05:12 | CT Scan Report ---
EXAM: CT tib/fib LT wo con CLINICAL HISTORY: Worsening pain, noac, left tib/fib, and left foot. TECHNIQUE: Contiguous axial CT images of the left tib/fib were obtained without intravenous contrast. Sagittal and coronal multiplanar reformats were acquired. One of the following dose reduction techniques was utilized for this exam: Automated exposure control, adjustment of the mA and/or kV according to patient size, and use of iterative reconstruction. DLP: 1744.07 mGy-cm, CTDI: 49.8 mGy. COMPARISON: None. FINDINGS: Bone: There are widely distributed foci of osteopenia more along periarticular regions, possibly suggesting reflex sympathetic dystrophic changes and should be clinically investigated as a cause of chronic pain. The visualized tibia and fibula are intact. No evidence of fracture or dislocation. No focal bone lesions are identified. Joints: The visualized part of knee and ankle joints show mild osteoarthritic changes as few marginal osteophytes. Soft Tissues: Dilated superficial vascular channels consistent with varicose veins. Anterior leg longitudinal subcutaneous scarring/fat stranding for correlation with patient history. No signs of swelling, masses, or abnormal fluid collections. Muscles: Normal appearance of the surrounding musculature. No muscle atrophy or abnormal density changes. IMPRESSION: 1. Widely distributed foci of osteopenia more along periarticular regions, possibly suggest reflex sympathetic dystrophic changes and should be clinically investigated as a cause of chronic pain. 2. Anterior leg longitudinal subcutaneous scarring/fat stranding for correlation with patient history. 3. Dilated superficial vascular channels consistent with varicose veins. Electronically signed by Lashawn Bacon 07-20-2024 05:12 AM
--- NOTE | 2024-07-20 05:27 | CT Scan Report ---
EXAM: CT foot LT wo con CLINICAL HISTORY: worsening pain, noac, left tib/fib and left foot TECHNIQUE: Contiguous axial CT images of the left foot were obtained without intravenous contrast. Sagittal and coronal multiplanar reformats were acquired. One of the following dose reduction techniques were utilized for this exam: Automated exposure control, adjustment of the mA and/or kV according to patient size, use of iterative reconstruction. DL 1744.07 COMPARISON: None. FINDINGS: Bones: Small loose body related to the fifth metatarsal bone base intraarticular in location, could be an avulsion injury. Small chip fracture noted in the lateral malleolus and lateral aspect of the talus. Normal alignment of the tarsal, metatarsal, and phalangeal bones. No dislocations. No lytic or sclerotic lesions. No evidence of bone marrow edema. Joints: Osteoarthritic changes of multiple joints, mostly noted at [id number] and metatarsophalangeal joints as marginal osteophytes, subchondral cystic changes and multiple marginal cortical erosions. Normal appearance of the ankle, subtalar, midtarsal, and metatarsophalangeal joints. No joint effusion. Soft Tissues: Normal appearance of the soft tissues. No signs of swelling, masses, or abnormal fluid collections. No evidence of tendinopathy or ligamentous injury. Muscles: Normal appearance of the surrounding musculature. No muscle atrophy or abnormal density changes. Ligaments and Tendons: Intact and normal appearance of the major foot ligaments and tendons, including the Achilles tendon, plantar fascia, and other tendons around the foot. IMPRESSION: 1. Small loose body related to the fifth metatarsal bone base intraarticular in location, could be an avulsion injury. 2. Small chip fracture noted in the lateral malleolus and lateral aspect of the talus. 3. Osteoarthritic changes of multiple joints are mostly noted at [id number]-aryr-dgcufm and metatarsophalangeal joints. Electronically signed by Lashawn Bacon 07-20-2024 05:27 AM
[2024-07-20] MEDS: methylPREDNISolone 4 MG TAB PO SCH (06:16)
[2024-07-20 06:26] LABS: BUN Creatinine Ratio 27.1 (10-20); Calcium 8.5 mg/dl (8.6-10.3); Creatinine Clr Calc Pharmacy 61.7 ml/min; Potassium 4.4 mmol/L (3.5-5.1)
[2024-07-20 07:10] VITALS: BP 118/79; PULSE 73; TEMP 98.1
[2024-07-20] MEDS: BACLOFEN 10 MG TAB PO SCH (08:41)
--- NOTE | 2024-07-20 10:59 | Orthopedic Consultation ---
Date of Service July 20, 2024 Assessment & Plan (1) Chronic pain syndrome: (2) Complex regional pain syndrome i of left lower limb: (3) Left foot pain: (4) Factor V Leiden mutation: Plan MRI was reviewed and discussed with the patient. Although the radiology report mentions possibility of arachnoiditis, she has no history of surgical intervention in the spine, no epidural in intervention and her pain symptoms appear more consistent with complex regional pain syndrome as she describes them from originating in the foot and radiating upwards over time. She has no significant back pain. There is certainly possibility of arachnoiditis however I find this to be less likely than complex regional pain syndrome given the multiple trauma to the left lower extremity and no history of any compression of spinal nerves. Could trial anti-inflammatories and physical therapy, no surgery indicated for arachnoiditis even if it is present, management would be continued conservative care and evaluation by pain management. She is set up to see [facility] pain management in 2 days which I recommend she keep that appointment and I agree with the recommendations of pain management here in the hospital. Okay for discharge from a spine perspective, should follow-up with her pain m anagement which is already arranged, no need for follow-up with spine surgery. History of Present Illness Reason for Consultation: Left leg pain, MRI concerning for arachnoiditis Attending Physician: Gurwinder Bartholomew MD Patient is a 53-year-old female who was admitted to the hospital for left lower extremity pain and swelling. Has a history of factor V Leiden with multiple clots to the left lower extremity. She reports she has been on pain medication for residual pain for many years. March of last year she underwent surgery to her left foot for a fracture, revision surgery several weeks later. Since the time of her last foot surgery she has noted pain and swelling to the left foot which has now caused pain that has begun to work its way up the left lower extremity. She describes the pain as originating in the left foot radiating up into the anterior tibial region as well as all the way up to the gluteal region. Does not describe pain in a specific dermatomal pattern rather relates the pain to feeling like a combination of shinsplints as well as the [id number] sensation of her leg being asleep. Pain is worst distal to the knee. She reports paresthesias into the left lower extremity with hyperesthesia with any touch. Difficult to assess strength of the left lower extremity due to the severity of pain and swelling there is very limited motion. Allergies Allergy/AdvReac Type Severity Reaction Status Date / Time kiwi Allergy Severe ANAPHYLAXIS Verified 07/17/24 19:38 prochlorperazine Allergy Severe SEVERE Verified 07/17/24 19:38 DYSTONIA tree nut Allergy Severe Anaphylaxis Verified 07/17/24 19:38 metronidazole Allergy Intermediate hives Verified 07/17/24 19:38 Home Medications Medication Instructions Recorded Confirmed Type albuterol sulfate 90 mcg/actuation 2 puff inhalation QID PRN 06/02/18 07/17/24 History aerosol inhaler Shortness Of Breath Or Wheezing sumatriptan succinate 50 mg tablet 50 mg PO UD PRN Migraine Headache 06/02/18 07/17/24 History topiramate 200 mg tablet 200 mg PO BID 06/02/18 07/17/24 History fluoxetine 40 mg capsule 40 mg PO QAM 10/25/18 07/17/24 History lactobacillus combination no.4 3 0 mmu cells PO QAM 08/10/19 07/17/24 History billion cell capsule (Probiotic) dicyclomine 20 mg tablet 20 mg PO TID PRN IBS 04/05/21 07/17/24 History docusate sodium 100 mg tablet 100 mg PO BID PRN Constipation #30 06/13/21 07/17/24 Rx tabs ondansetron HCl 4 mg tablet 4 mg PO Q6H PRN Nausea 07/12/21 07/17/24 History rivaroxaban 20 mg tablet (Xarelto) 20 mg PO QDD 07/12/21 07/17/24 History gabapentin 100 mg capsule 400 mg PO TID 07/17/24 07/17/24 History oxycodone 5 mg tablet 5 mg PO Q6H PRN Pain 07/17/24 07/17/24 History Past Med/Surg History Problem List (Updated 07/18/24 @ 15:01 by Timothy Joya PA-C) Lumbar radicular pain Chronic pain syndrome Complex regional pain syndrome i of left lower limb Left foot pain (Acute) Factor V Leiden mutation (Acute) Asthma Bipolar I disorder, single manic episode Edema of left lower extremity (Acute) Acute deep vein thrombosis of left lower extremity (Acute) Left leg swelling (Acute) Tobacco use Anxiety Seizure disorder Last episode about 10 years ago. 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 Controlled with topamax. Recurrent deep vein thrombosis (DVT) (Chronic) Depression (Chronic) Tobacco abuse (Chronic) Ulcerative colitis (Chronic) PTSD (post-traumatic stress disorder) (Chronic) Medical History Cervicalgia Bipolar disorder, unspecified COVID-19 Hydronephrosis with urinary obstruction due to ureteral calculus Suicidal ideation Asthma Not using inhaler on a regular basis. Denies having any h/o hospitalization or intubation due to asthma Chronic anticoagulation Surgical History Hx of tonsillectomy H/O tubal ligation History of cholecystectomy Hx of foot surgery closed avulsion fx of metatarsal bone of left foot, left tear of peroneal tendon who underwent ORIF of 5th metatarsal. In April he underwent repair of peroneal brevis tendon with hardware removal in April 2024 S/P ureteral stent placement 2018 Family History Mother Dyslipidemia Social History Smoking Status: Current some day smoker Tobacco Type: Cigarettes Second Hand Exposure: No; Do You Dip or Chew Tobacco: No; Hx Alcohol Use: No Hx Substance Use: No Preferred Language: [place] Communication Ability: Effective Darklight Inspector Required: No Beliefs That Will Affect Care: None marital status: Current Living Situation: Parent Current Living Situation Comment: Dad current occupational status: employed Feels Safe at Home: Yes Assistive Devices: Bedside Commode, Walker and Wheelchair Review of Systems All systems reviewed & are unremarkable except as noted in HPI & below. Physical Exam Constitutional: Well developed, appears stated age Psych: patient is coherent and answers questions appropriately, normal affect Eye: Normal gaze, no redness to sclera, pupils round and equal Pulm: Normal respiratory effort, no wheezing Cardiovascular: no significant peripheral edema, palpable DP/PT pulses Skin shows no rashes, lesions No midline or paraspinal tenderness with palpation over the lumbar spine, no stepoffs Motor strength is 5/5 in bilateral hip flexors, quadriceps, tibialis anterior, extensor hallucis longus, and gastroc/soleus complex on the right. 5 out of 5 hip flexor quadriceps on the left, difficult to assess the tibialis anterior EHL and gastrocsoleus due to the severity of her pain and limited motion, she appears to be able to fire all muscles however limited by pain Sensation intact to light touch in the L2-S1 dermatomes on the right she has diffuse paresthesias and hyperesthesia from the knee down on the left not following a dermatomal pattern 2+ reflexes at the achilles and patella tendons bilaterally No ankle clonus Results & Data Results & Data Laboratory Results . Diagnostic Findings MRI Lumbar Spine No acute bony abnormality of the lumbar spine. No substantial neuroforaminal or spinal canal stenosis. There is straightening of the lumbar lordotic curvature which may be seen with muscular spasm. The cauda equina nerve roots appear deviated towards the periphery of the thecal sac, with a somewhat empty thecal sac appearance, which may be seen with adhesive arachnoiditis. MRI was interpreted personally. There is no sign of compressive pathology in the lumbar spine, radiology report describes nerves that however deviated from the central thecal sac however there is no compression or sign of any other pathology on lumbar spine PG Care Time/CCT Total # of Minutes Spent Total Time Spent with Patient: Total time spent is greater than 50% in coordination of care (as documented) at patient's floor/unit and/or counseling patient: Coding Level of Care Code 69840 IN/OBS CONSULT LVL 3,45M Diagnoses Chronic pain syndrome G89.4 Complex regional pain syndrome i of left lower limb G90.522 Left foot pain M79.672 Factor V Leiden mutation D68.51
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
[2024-07-20] MEDS: CHOLECALCIFEROL 125 MCG (5,000 UNITS) TAB PO SCH (13:05)
[2024-07-21] MEDS ORDERED: methylPREDNISolone 4 MG TAB PO SCH (07:00)
[2024-07-22] MEDS ORDERED: methylPREDNISolone 4 MG TAB PO SCH (07:00)
[2024-07-23] MEDS ORDERED: methylPREDNISolone 4 MG TAB PO SCH (07:00)
== END 2024-07-20 15:35 | disposition home health service (06) | DRG 74 ==
LOC: SUATTDRO → EDINP 14:31 → ED 14:31 → SUATTDRO 20:36 → 3E 21:49

== ENCOUNTER 2024-07-23 13:05 | Inpatient (IN) ==
[2024-07-23 13:33] LABS: iSTAT Creatinine 0.8 mg/dl (0.6-1.3); iSTAT Hemoglobin 14.3 g/dl (12.0-16.0); iSTAT Ionized Calcium 1.12 mmol/l (1.12-1.32); iSTAT Potassium 4.3 mmol/L (3.3-5.0)
[2024-07-23 13:37] LABS: Basophils # (auto) 0.04 K/uL (0.00-0.20); Basophils % (auto) 0.4 %; Eosinophils # (auto) 0.02 K/uL (0.00-0.50); Eosinophils % (auto) 0.2 %; Hematocrit (blood only) 42.1 % (37.0-47.0); Hemoglobin 14.7 g/dl (12.0-16.0); Immature Granulocytes # (auto) 0.08 K/uL (0.01-0.20); Immature Granulocytes % (auto) 0.8 %; Lymphocytes # (auto) 2.02 K/uL (1.20-3.40); Lymphocytes % (auto) 19.1 %; Mean Corpuscular Hemoglobin 32.1 pg (25.0-34.0); Mean Corpuscular Hgb Conc 34.9 g/dL (32.0-36.0); Mean Corpuscular Volume 91.9 fL (80.0-100.0); Mean Platelet Volume 9.6 fL (9.4-12.4); Monocytes # (auto) 0.65 K/uL (0.11-0.59); Monocytes % (auto) 6.1 %; Neutrophils # (auto) 7.77 K/uL (1.40-6.50); Neutrophils % (auto) 73.4 %; Platelet Count 189 K/uL (130-400); RDW Coefficient of Variation 12.9 % (11.5-14.5); RDW Standard Deviation 42.7 fL (36.4-46.3); Red Blood Count 4.58 M/uL (4.20-5.40); White Blood Count 10.58 K/ul (4.8-10.8)
[2024-07-23] MEDS: OPTIRAY 320 125ml IV ONE (13:41)
[2024-07-23 13:48] LABS: Anion Gap 5 (3-11); Bilirubin,Total 0.3 mg/dl (0.2-1.0); Calcium 8.7 mg/dl (8.6-10.3); Carbon Dioxide 23 mmol/L (21-32); Chloride 111 mmol/L (98-107); Potassium 4.3 mmol/L (3.5-5.1); Sodium 139 mmol/L (136-145)
[2024-07-23 13:55] LABS: Alanine Aminotransferase 30 U/L (7-52); Albumin Globulin Ratio 1.6 (0.9-2); Alkaline Phosphatase 47 U/L (34-104); Aspartate Aminotransferase 25 U/L (13-39); BUN Creatinine Ratio 32.6 (10-20); Blood Urea Nitrogen 29 mg/dl (6-23); Creatinine Clr Calc Pharmacy 74.8 ml/min; Globulin 2.5 gm/dl (2.5-4.0); Glucose 108 mg/dl (70-99(Fasting)); Lipase 18 U/L (11-82); Total Protein 6.5 gm/dl (6.0-8.3)
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
[2024-07-23 14:04] LABS: INR 1.1 (0.9-1.1); Partial Thromboplastin Ratio 0.9; Partial Thromboplastin Time 24 Seconds (21-31); Prothrombin Time 12.1 Seconds (9.0-12.0)
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
--- NOTE | 2024-07-23 14:04 | CT Scan Report ---
ABDOMEN AND PELVIS CT WITH IV CONTRAST CT DOSE: 3100.18 mGy.cm HISTORY: Ground-level fall on blood thinners TECHNIQUE: Multiaxial CT images of the abdomen and pelvis were performed following the IV administrat ion of 112 cc of Optiray, A dose lowering technique was utilized adhering to the principles of ALARA . Sagittal and coronal reconstructions were done. COMPARISON STUDY: 01/25/2022 FINDINGS: There is bibasilar discoid atelectasis. The solid organs demonstrate no traumatic injury. T here is hepatic steatosis. Gallbladder is absent. The bile ducts are not dilated. There is no hydrone phrosis. The pancreas, adrenal glands, and spleen are unremarkable. There is no aortic aneurysm or periaortic adenopathy. No bowel obstruction or free air. Is no ascites. In the pelvis, there is no fluid in the cul-de-sac. The uterus is midline and not enlarged. There is no bladder lesion depicted. There is a small gas collection in the right femoral vein is most likely iatrogenic. IMPRESSION: No acute findings in the abdomen and pelvis. ACT 112: Negative or not required by law. The above report was generated using voice recognition software. It may contain grammatical, syntax o r spelling errors. Electronically signed by: Qi Sharma M.D. 07/23/2024 2:02 PM
[2024-07-23 14:05] LABS: Troponin I High Sensitivity < 2.3 pg/ml (0-14)
--- NOTE | 2024-07-23 14:06 | XRay Report ---
XR chest 1V portable CLINICAL HISTORY: Trauma COMPARISON STUDY: Chest CT July 12, 2021. FINDINGS: Lung volumes are normal. There are no airspace opacities. Linear left lower lung densities represent atelectasis. There is no pneumothorax or pleural effusion. Cardiac size is normal. Mediasti nal contours are normal. There is no evidence for pulmonary edema. IMPRESSION: No acute cardiopulmonary findings. ACT 112: Negative or not required by law. Electronically signed by: Louis Roberts M.D. 07/23/2024 2:05 PM
--- NOTE | 2024-07-23 14:11 | CT Scan Report ---
CT ANGIOGRAPHY OF THE NECK WITH CONTRAST CLINICAL HISTORY: Stroke like symptoms. COMPARISON STUDY: Cervical spine CT July 05, 2015. Technique: CT angiography of the carotid and vertebral arteries was obtained using Optiray and 3D rec onstruction on an independent workstation. NASCET criteria was utilized. Automated exposure control was utilized for the study. A dose lowering technique was utilized adhering to the principles of ALA RA. Findings: Visualized portions of the lung apices are unremarkable. There is no cervical spine fractur e. There is no cervical lymphadenopathy. The bilateral common carotid, cervical internal carotid and vertebral arteries are patent. There is no aneurysm or dissection within the neck. No significant bernie noses are identified. IMPRESSION: No stenosis or dissection within the bilateral common carotid, cervical internal carotid or vertebral arteries. ACT 112: Negative or not required by law. Electronically signed by: Louis Roberts M.D. 07/23/2024 2:10 PM
--- NOTE | 2024-07-23 14:14 | XRay Report ---
XR pelvis 1-2V routine CLINICAL HISTORY: Trauma COMPARISON: None FINDINGS: Single view of the pelvis demonstrates an no acute traumatic injury. Is no fracture identi fied. No hip dislocation. Contrast material is identified within the ureters and bladder from a recen t CT scan. IMPRESSION: Negative pelvis ACT 112: Negative or not required by law. Electronically signed by: Qi Sharma M.D. 07/23/2024 2:13 PM
--- NOTE | 2024-07-23 14:15 | CT Scan Report ---
CT angio head w con CLINICAL HISTORY: stroke like symptoms. COMPARISON STUDY: Head CT earlier today TECHNIQUE: Unenhanced axial CT scan of the brain is performed. Subsequently, following the IV adminis tration of 112 cc of Optiray, CT angiogram of the brain was performed from the skull base to the vert ex. Images are reviewed in the axial, sagittal, and coronal planes. 3-D MIPS images are created and a ssessed. IV contrast was administered without complication. All measurements were obtained according to NASCET criteria. A dose lowering technique was utilized adhering to the principles of ALARA. FINDINGS: The distal aspect of the vertebral arteries are diminutive, anatomic variant. No significan t narrowing or occlusion seen at the intracranial carotid or vertebral arteries bilaterally. Basilar artery is diminutive but patent, anatomic variant. The anterior, middle, and posterior cerebral arter ies are patent bilaterally. No intracranial aneurysm seen. Cerebral venous sinuses opacify normally. IMPRESSION: No significant arterial narrowing or occlusion seen at the brain. ACT 112: Negative or not required by law. The above report was generated using voice recognition software. It may contain grammatical, syntax o r spelling errors. Electronically signed by: Flo Bautista M.D. 07/23/2024 2:14 PM
[2024-07-23 14:47] LABS: Appearance Urine Clear (Clear); Bilirubin Urine Negative (Negative); Blood Urine Negative (Negative); Color Urine Yellow; Glucose Urine UA Negative (Negative); Ketones Urine Negative (Negative); Leukocyte Esterase Urine Negative (Negative); Nitrite Urine Negative (Negative); Protein Urine Negative (Negative); Specific Gravity Urine > 1.045 (1.000-1.030); Urobilinogen Urine Negative (Negative)
[2024-07-23] MEDS: levETIRAcetam 500 MG/5 ML VIAL IV STA (14:49)
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
--- NOTE | 2024-07-23 15:16 | Electrocardiogram Report ---
Test Reason : Blood Pressure : */* mmHG Vent. Rate : 61 BPM Atrial Rate : 61 BPM P-R Int : 158 ms QRS Dur : 76 ms QT Int : 458 ms P-R-T Axes : 57 57 66 degrees QTcB Int : 461 ms Sinus rhythm with Premature atrial complexes Otherwise normal ECG When compared with ECG of 12-Jul-2021 16:32, Premature atrial complexes are now Present Confirmed by Richi Tamez ([id number]) on 07/23/2024 3:15:56 PM Referred By: REFERRED SELF Confirmed By: Richi Tamez
[2024-07-23] MEDS ORDERED: PHARMACIST DISCHARGE MED REC CONSULT PRN (17:36)
--- NOTE | 2024-07-23 19:56 | Emergency Department Note ---
History of Present Illness General Chief complaint: Trauma Stated complaint: STROKE SX Time Seen by Provider: 07/23/24 13:09 History of Present Illness Provider complaint: Trauma 53-year-old female presents emergency department as a trauma. Patient presents via EMS. Patient is on Xarelto. Patient reportedly fell earlier today. Patient was reportedly found by her family at 11 AM and had a left-sided facial droop as well as left-sided weakness. Patient was also aphasic. Home Medications Medication Instructions Recorded Confirmed Type albuterol sulfate 90 mcg/actuation 2 puff inhalation QID PRN 06/02/18 07/23/24 History aerosol inhaler Shortness Of Breath Or Wheezing sumatriptan succinate 50 mg tablet 50 mg PO UD PRN Migraine Headache 06/02/18 07/23/24 History topiramate 200 mg tablet 200 mg PO BID 06/02/18 07/23/24 History fluoxetine 40 mg capsule 40 mg PO QAM 10/25/18 07/23/24 History lactobacillus combination no.4 3 0 mmu cells PO QAM 08/10/19 07/23/24 History billion cell capsule (Probiotic) dicyclomine 20 mg tablet 20 mg PO TID PRN IBS 04/05/21 07/23/24 History docusate sodium 100 mg tablet 100 mg PO BID PRN Constipation #30 06/13/21 07/23/24 Rx tabs ondansetron HCl 4 mg tablet 4 mg PO Q6H PRN Nausea 07/12/21 07/23/24 History rivaroxaban 20 mg tablet (Xarelto) 20 mg PO QDD 07/12/21 07/23/24 History oxycodone 5 mg tablet 5 mg PO Q6H PRN Pain 07/17/24 07/23/24 History acetaminophen 650 mg 650 mg PO Q8H PRN mild pain (scale 07/20/24 07/23/24 Rx tablet,extended release (Tylenol 8 score 1-4) #60 tabs Hour) baclofen 10 mg tablet 10 mg PO TID #90 tabs 07/20/24 07/23/24 Rx cholecalciferol (vitamin D3) 125 125 mcg PO QAM #30 tabs 07/20/24 07/23/24 Rx mcg (5,000 unit) tablet diclofenac sodium 1 % topical gel 2 g EXT QID #100 grams 07/20/24 07/23/24 Rx (Voltaren Arthritis Pain) famotidine 20 mg tablet 20 mg PO BID 7 days #14 tabs 07/20/24 07/23/24 Rx ibuprofen 400 mg tablet 400 mg PO Q8H PRN mild to moderate 07/20/24 07/23/24 Rx pain 7 days #21 tabs methylprednisolone 4 mg tablets in 4 mg PO DAILY #21 ea 07/20/24 07/23/24 Rx a dose pack (Medrol ([place])) pregabalin 75 mg capsule (Lyrica) 75 mg PO TID #90 caps 07/20/24 07/23/24 Rx tapentadol 50 mg tablet (Nucynta) 50 mg PO Q4H PRN severe pain 07/20/24 07/23/24 Rx (scale score 7-10) #30 tabs Allergies Allergy/AdvReac Type Severity Reaction Status Date / Time kiwi Allergy Severe ANAPHYLAXIS Verified 07/17/24 19:38 prochlorperazine Allergy Severe SEVERE Verified 07/17/24 19:38 DYSTONIA tree nut Allergy Severe Anaphylaxis Verified 07/17/24 19:38 metronidazole Allergy Intermediate hives Verified 07/17/24 19:38 Past Med/Surg History Problem List (Updated 07/23/24 @ 19:56 by Dany Trotter MD) Stroke-like symptoms (Acute) Fall (Acute) Lumbar radicular pain Chronic pain syndrome Complex regional pain syndrome i of left lower limb Left foot pain (Acute) Factor V Leiden mutation (Acute) Asthma Bipolar I disorder, single manic episode Edema of left lower extremity (Acute) Acute deep vein thrombosis of left lower extremity (Acute) Left leg swelling (Acute) Tobacco use Anxiety Seizure disorder (Acute) Last episode about 10 years ago. 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 Controlled with topamax. Recurrent deep vein thrombosis (DVT) (Chronic) Depression (Chronic) Tobacco abuse (Chronic) Ulcerative colitis (Chronic) PTSD (post-traumatic stress disorder) (Chronic) Medical History Cervicalgia Bipolar disorder, unspecified COVID-19 Hydronephrosis with urinary obstruction due to ureteral calculus Suicidal ideation Asthma Not using inhaler on a regular basis. Denies having any h/o hospitalization or intubation due to asthma Chronic anticoagulation Surgical History Hx of tonsillectomy H/O tubal ligation History of cholecystectomy Hx of foot surgery closed avulsion fx of metatarsal bone of left foot, left tear of peroneal tendon who underwent ORIF of 5th metatarsal. In April he underwent repair of peroneal brevis tendon with hardware removal in April 2024 S/P ureteral stent placement 2018 Family History Mother Dyslipidemia Social History Smoking Status: Never smoker Tobacco Type: Cigarettes Second Hand Exposure: No; Do You Dip or Chew Tobacco: No; Hx Alcohol Use: No Hx Substance Use: No Preferred Language: Guatemalan Communication Ability: Effective Practice Director Required: No Beliefs That Will Affect Care: None marital status: Current Living Situation: Family Current Living Situation Comment: Dad current occupational status: employed Other Information That Helps Us Care for You: No Feels Safe at Home: Declines to Answer Assistive Devices: None Physical Exam Vital Signs Vital Signs - 24 hr 07/23/24 13:13 07/23/24 13:18 07/23/24 13:18 Temperature 36.5 C 36.6 C Temperature Source Oral Pulse Rate 76 54 L Pulse Rate [Apical] Pulse Rate from SpO2 Sensor Respiratory Rate 15 14 Respiratory Effort / Characteristics Non-Labored Spontaneous Non-Labored Spontaneous Respiratory Depth Normal Normal Blood Pressure 108/78 108/78 Blood Pressure [Right Arm] Blood Pressure Mean 88 Blood Pressure Mean [Right Arm] Pulse Oximetry 98 98 Oxygen Delivery Method Room Air Room Air Oxygen Flow Rate 0 Sepsis Recent Fever Within 48 Hours No Sepsis New/Unexplained Change in Mental Status Yes Sepsis Action Taken by Nursing No Action Required 07/23/24 13:22 07/23/24 13:22 07/23/24 13:22 Temperature Temperature Source Pulse Rate Pulse Rate [Apical] Pulse Rate from SpO2 Sensor Respiratory Rate 15 Respiratory Effort / Characteristics Non-Labored Spontaneous Respiratory Depth Normal Blood Pressure Blood Pressure [Right Arm] Blood Pressure Mean Blood Pressure Mean [Right Arm] Pulse Oximetry 98 98 Oxygen Delivery Method Room Air Room Air Oxygen Flow Rate Sepsis Recent Fever Within 48 Hours Sepsis New/Unexplained Change in Mental Status Sepsis Action Taken by Nursing 07/23/24 13:36 07/23/24 13:39 07/23/24 13:46 Temperature Temperature Source Pulse Rate 65 Pulse Rate [Apical] Pulse Rate from SpO2 Sensor 60 Respiratory Rate 20 Respiratory Effort / Characteristics Respiratory Depth Blood Pressure 133/83 129/68 Blood Pressure [Right Arm] Blood Pressure Mean 104 85 Blood Pressure Mean [Right Arm] Pulse Oximetry 95 Oxygen Delivery Method Oxygen Flow Rate Sepsis Recent Fever Within 48 Hours Sepsis New/Unexplained Change in Mental Status Sepsis Action Taken by Nursing 07/23/24 13:46 07/23/24 13:54 07/23/24 13:57 Temperature Temperature Source Pulse Rate 54 L 53 L Pulse Rate [Apical] Pulse Rate from SpO2 Sensor 53 L 52 L Respiratory Rate 15 16 Respiratory Effort / Characteristics Respiratory Depth Blood Pressure 129/68 Blood Pressure [Right Arm] Blood Pressure Mean 85 Blood Pressure Mean [Right Arm] Pulse Oximetry 97 97 Oxygen Delivery Method Oxygen Flow Rate Sepsis Recent Fever Within 48 Hours Sepsis New/Unexplained Change in Mental Status Sepsis Action Taken by Nursing 07/23/24 14:00 07/23/24 14:06 07/23/24 14:12 Temperature Temperature Source Pulse Rate 58 L 55 L Pulse Rate [Apical] Pulse Rate from SpO2 Sensor 57 L 55 L Respiratory Rate 18 17 Respiratory Effort / Characteristics Respiratory Depth Blood Pressure 105/67 Blood Pressure [Right Arm] Blood Pressure Mean 76 Blood Pressure Mean [Right Arm] Pulse Oximetry 96 99 Oxygen Delivery Method Oxygen Flow Rate Sepsis Recent Fever Within 48 Hours Sepsis New/Unexplained Change in Mental Status Sepsis Action Taken by Nursing 07/23/24 14:13 07/23/24 14:15 07/23/24 14:21 Temperature Temperature Source Pulse Rate 56 L 56 L Pulse Rate [Apical] Pulse Rate from SpO2 Sensor 57 L Respiratory Rate 16 Respiratory Effort / Characteristics Respiratory Depth Blood Pressure 95/73 L Blood Pressure [Right Arm] Blood Pressure Mean 82 Blood Pressure Mean [Right Arm] Pulse Oximetry 98 Oxygen Delivery Method Oxygen Flow Rate Sepsis Recent Fever Within 48 Hours Sepsis New/Unexplained Change in Mental Status Sepsis Action Taken by Nursing 07/23/24 14:30 07/23/24 14:45 07/23/24 15:02 Temperature Temperature Source Pulse Rate 63 Pulse Rate [Apical] 56 L Pulse Rate from SpO2 Sensor 63 Respiratory Rate 16 16 Respiratory Effort / Characteristics Respiratory Depth Blood Pressure 91/66 L Blood Pressure [Right Arm] 107/66 Blood Pressure Mean 83 Blood Pressure Mean [Right Arm] 79 Pulse Oximetry 94 95 Oxygen Delivery Method Room Air Oxygen Flow Rate Sepsis Recent Fever Within 48 Hours Sepsis New/Unexplained Change in Mental Status Sepsis Action Taken by Nursing Physical Exam HENT: Exam performed. -Head: Normocephalic and atraumatic. EYES: Conjunctivae and EOM are normal. Pupils are equal, round, and reactive to light. Right eye exhibits no discharge. Left eye exhibits no discharge. No scleral icterus. NECK: Normal range of motion. Neck supple. No JVD present. No spinous process tenderness present. CV: Normal rate, regular rhythm, normal heart sounds and intact distal pulses. There is no peripheral edema. Palpable radial pulses bue. PULM/CHEST: Effort normal and breath sounds normal. No respiratory distress. No stridor. She has no wheezes. She has no rales. -Chest Wall: She exhibits no tenderness. No crepitus bilaterally. ABD: The abdomen is soft. MUSC/SKEL: Pelvis stable. NEURO: No facial droop. Moderate expressive aphasia. Course Course 1309: The patient was evaluated in room B7. A complete history and physical exam was performed Cardiac monitoring: An order was placed for continuous cardiac monitoring. The monitor shows a rate of 60 with sinus rhythm interpreted by me No code stroke called as the patient is on Xarelto and not a TNK candidate. Code trauma called this patient is a fall on Xarelto. 1322: CT of the head viewed by me shows no ICH. Will conduct CT angio head and neck in addition to trauma scans to make sure there is no large vessel occlusion causing patient's expressive aphasia. 1410: Vital signs stable. Patient is sleeping and snoring in no acute distress. CT of the head negative. 1450: Vital signs stable. Labs are unremarkable. Patient still having some mild expressive aphasia but is able to speak more when asking direct questions. Is unclear if the patient had a stroke or had a seizure. Discussed the case with on-call neurology Dr. Kang and he recommends an MRI of the patient and start the patient on Keppra 1 g loading dose followed by 500 mg twice daily. Patient be admitted to the [facility] hospitalist team. Administered Medications Discontinued Medications Ioversol (Optiray 320 125ml) 112 ml IV ONCE ONE Stop: 07/23/24 13:41 Last Admin: 07/23/24 13:41 Dose: 112 ml Documented By: JOSE Levetiracetam (Levetiracetam 500 Mg/5 Ml Vial) 1,000 mg IV NOW STA Stop: 07/23/24 14:42 Last Admin: 07/23/24 14:49 Dose: 1,000 mg Documented By: JONNIE Critical Care Time Critical Care Time: Yes Total Critical Care Time: 51 I have personally spent greater than 51 minutes of critical care time in the direct management of this patient. This includes bedside care, interpretation of diagnostic studies, and testing, discussion with consultants, patient, and family members, and other required patient management activities. This 51 minutes is in excess of all separately billable procedures. Medical Decision Making Laboratory Data Attestation: I reviewed the patient's lab results. 07/23/24 13:19 07/23/24 13:19 Lab Results 07/23/24 07/23/24 07/23/24 Range/Units 13:19 13:20 13:21 WBC 10.58 (4.8-10.8) K/ul RBC 4.58 (4.20-5.40) M/uL Hgb 14.7 (12.0-16.0) g/dl POC Hgb 14.3 (12.0-16.0) g/dl Hct 42.1 (37.0-47.0) % POC Hct 42 (37-47) % MCV 91.9 (80.0-100.0) fL MCH 32.1 (25.0-34.0) pg MCHC 34.9 (32.0-36.0) g/dL RDW Std Deviation 42.7 (36.4-46.3) fL RDW Coeff of Vik 12.9 (11.5-14.5) % Plt Count 189 (130-400) K/uL MPV 9.6 (9.4-12.4) fL Immature Gran % (Auto) 0.8 % Neut % (Auto) 73.4 % Lymph % (Auto) 19.1 % [place] % (Auto) 6.1 % Eos % (Auto) 0.2 % Baso % (Auto) 0.4 % Neut # (Auto) 7.77 H (1.40-6.50) K/uL Lymph # (Auto) 2.02 (1.20-3.40) K/uL [place] # (Auto) 0.65 H (0.11-0.59) K/uL Eos # (Auto) 0.02 (0.00-0.50) K/uL Baso # (Auto) 0.04 (0.00-0.20) K/uL Immature Gran # (Auto) 0.08 (0.01-0.20) K/uL PT 12.1 H (9.0-12.0) Seconds INR 1.1 (0.9-1.1) APTT 24 (21-31) Seconds PTT Ratio 0.9 POC Sodium 141 (135-144) mmol/L Sodium 139 (136-145) mmol/L POC Potassium 4.3 (3.3-5.0) mmol/L Potassium 4.3 (3.5-5.1) mmol/L POC Chloride 111 (101-112) mmol/L Chloride 111 H (98-107) mmol/L Carbon Dioxide 23 (21-32) mmol/L POC Total CO2 20 L (24-31) mmol/L Anion Gap 5 (3-11) POC Anion Gap 15.0 L (16-25) mmol/L POC BUN 29 H (7-18) mg/dl BUN 29 H (6-23) mg/dl Creatinine 0.89 (0.6-1.2) mg/dl POC Creatinine 0.8 (0.6-1.3) mg/dl Est Cr Clr Drug Dosing 74.8 ml/min eGFR 78.45 BUN/Creatinine Ratio 32.6 H (10-20) Glucose 108 H (70-99(Fasting)) mg/dl POC Glucose (70-99) mg/dl POC Glucose (other) 108 H (70-99) mg/dl Calcium 8.7 (8.6-10.3) mg/dl POC Ioniz Calcium Omid 1.12 (1.12-1.32) mmol/l Total Bilirubin 0.3 (0.2-1.0) mg/dl AST 25 (13-39) U/L ALT 30 (7-52) U/L Alkaline Phosphatase 47 (34-104) U/L Troponin I High Sens < 2.3 (0-14) pg/ml Total Protein 6.5 (6.0-8.3) gm/dl Albumin 4.0 (3.4-5.0) gm/dl Globulin 2.5 (2.5-4.0) gm/dl Albumin/Globulin Ratio 1.6 (0.9-2) Lipase 18 (11-82) U/L Vitamin B12 239 (180-914) pg/ml 25-OH Vitamin D Total 12.8 L (30-100) ng/ml Urine Color Urine Appearance (Clear) Urine pH (4.5-7.5) Ur Specific [place] (1.000-1.030) Urine Protein (Negative) Urine Glucose (UA) (Negative) Urine Ketones (Negative) Urine Blood (Negative) Urine Nitrite (Negative) Urine Bilirubin (Negative) Urine Urobilinogen (Negative) Ur Leukocyte Esterase (Negative) Ethyl Alcohol mg/dL < 10.0 (<10.0) mg/dl Blood Type A Negative Antibody Screen NEGATIVE 07/23/24 07/23/24 Range/Units 14:30 14:48 WBC (4.8-10.8) K/ul RBC (4.20-5.40) M/uL Hgb (12.0-16.0) g/dl POC Hgb (12.0-16.0) g/dl Hct (37.0-47.0) % POC Hct (37-47) % MCV (80.0-100.0) fL MCH (25.0-34.0) pg MCHC (32.0-36.0) g/dL RDW Std Deviation (36.4-46.3) fL RDW Coeff of Vik (11.5-14.5) % Plt Count (130-400) K/uL MPV (9.4-12.4) fL Immature Gran % (Auto) % Neut % (Auto) % Lymph % (Auto) % [place] % (Auto) % Eos % (Auto) % Baso % (Auto) % Neut # (Auto) (1.40-6.50) K/uL Lymph # (Auto) (1.20-3.40) K/uL [place] # (Auto) (0.11-0.59) K/uL Eos # (Auto) (0.00-0.50) K/uL Baso # (Auto) (0.00-0.20) K/uL Immature Gran # (Auto) (0.01-0.20) K/uL PT (9.0-12.0) Seconds INR (0.9-1.1) APTT (21-31) Seconds PTT Ratio POC Sodium (135-144) mmol/L Sodium (136-145) mmol/L POC Potassium (3.3-5.0) mmol/L Potassium (3.5-5.1) mmol/L POC Chloride (101-112) mmol/L Chloride (98-107) mmol/L Carbon Dioxide (21-32) mmol/L POC Total CO2 (24-31) mmol/L Anion Gap (3-11) POC Anion Gap (16-25) mmol/L POC BUN (7-18) mg/dl BUN (6-23) mg/dl Creatinine (0.6-1.2) mg/dl POC Creatinine (0.6-1.3) mg/dl Est Cr Clr Drug Dosing ml/min eGFR BUN/Creatinine Ratio (10-20) Glucose (70-99(Fasting)) mg/dl POC Glucose 99 (70-99) mg/dl POC Glucose (other) (70-99) mg/dl Calcium (8.6-10.3) mg/dl POC Ioniz Calcium Omid (1.12-1.32) mmol/l Total Bilirubin (0.2-1.0) mg/dl AST (13-39) U/L ALT (7-52) U/L Alkaline Phosphatase (34-104) U/L Troponin I High Sens (0-14) pg/ml Total Protein (6.0-8.3) gm/dl Albumin (3.4-5.0) gm/dl Globulin (2.5-4.0) gm/dl Albumin/Globulin Ratio (0.9-2) Lipase (11-82) U/L Vitamin B12 (180-914) pg/ml 25-OH Vitamin D Total (30-100) ng/ml Urine Color Yellow Urine Appearance Clear (Clear) Urine pH 7.0 (4.5-7.5) Ur Specific [place] > 1.045 H (1.000-1.030) Urine Protein Negative (Negative) Urine Glucose (UA) Negative (Negative) Urine Ketones Negative (Negative) Urine Blood Negative (Negative) Urine Nitrite Negative (Negative) Urine Bilirubin Negative (Negative) Urine Urobilinogen Negative (Negative) Ur Leukocyte Esterase Negative (Negative) Ethyl Alcohol mg/dL (<10.0) mg/dl Blood Type Antibody Screen Imaging Data Attestation: I personally reviewed and interpreted this imaging study as follows: My Impression: CT head: No ICH Radiologist's Impression: Head CTA 07/23/24 13:10 CT angio head w con CLINICAL HISTORY: stroke like symptoms. COMPARISON STUDY: Head CT earlier today TECHNIQUE: Unenhanced axial CT scan of the brain is performed. Subsequently, following the IV administration of 112 cc of Optiray, CT angiogram of the brain was performed from the skull base to the vertex. Images are reviewed in the axial, sagittal, and coronal planes. 3-D MIPS images are created and assessed. IV contrast was administered without complication. All measurements were obtained according to NASCET criteria. A dose lowering technique was utilized adhering to the principles of ALARA. FINDINGS: The distal aspect of the vertebral arteries are diminutive, anatomic variant. No significant narrowing or occlusion seen at the intracranial carotid or vertebral arteries bilaterally. Basilar artery is diminutive but patent, anatomic variant. The anterior, middle, and posterior cerebral arteries are patent bilaterally. No intracranial aneurysm seen. Cerebral venous sinuses opacify normally. IMPRESSION: No significant arterial narrowing or occlusion seen at the brain. ACT 112: Negative or not required by law. The above report was generated using voice recognition software. It may contain grammatical, syntax or spelling errors. Electronically signed by: Flo Bautista M.D. 07/23/2024 2:14 PM Neck CTA 07/23/24 13:10 CT ANGIOGRAPHY OF THE NECK WITH CONTRAST CLINICAL HISTORY: Stroke like symptoms. COMPARISON STUDY: Cervical spine CT July 05, 2015. Technique: CT angiography of the carotid and vertebral arteries was obtained using Optiray and 3D reconstruction on an independent workstation. NASCET criteria was utilized. Automated exposure control was utilized for the study. A dose lowering technique was utilized adhering to the principles of ALARA. Findings: Visualized portions of the lung apices are unremarkable. There is no cervical spine fracture. There is no cervical lymphadenopathy. The bilateral common carotid, cervical internal carotid and vertebral arteries are patent. There is no aneurysm or dissection within the neck. No significant stenoses are identified. IMPRESSION: No stenosis or dissection within the bilateral common carotid, cervical internal carotid or vertebral arteries. ACT 112: Negative or not required by law. Electronically signed by: Louis Roberts M.D. 07/23/2024 2:10 PM Abdomen/Pelvis CT 07/23/24 13:[address] WITH IV CONTRAST CT DOSE: 3100.18 mGy.cm HISTORY: Ground-level fall on blood thinners TECHNIQUE: Multiaxial CT images of the abdomen and pelvis were performed following the IV administration of 112 cc of Optiray, A dose lowering technique was utilized adhering to the principles of ALARA. Sagittal and coronal reconstructions were done. COMPARISON STUDY: 01/25/2022 FINDINGS: There is bibasilar discoid atelectasis. The solid organs demonstrate no traumatic injury. There is hepatic steatosis. Gallbladder is absent. The bile ducts are not dilated. There is no hydronephrosis. The pancreas, adrenal glands, and spleen are unremarkable. There is no aortic aneurysm or periaortic adenopathy. No bowel obstruction or free air. Is no ascites. In the pelvis, there is no fluid in the cul-de-sac. The uterus is midline and not enlarged. There is no bladder lesion depicted. There is a small gas collection in the right femoral vein is most likely iatrogenic. IMPRESSION: No acute findings in the abdomen and pelvis. ACT 112: Negative or not required by law. The above report was generated using voice recognition software. It may contain grammatical, syntax or spelling errors. Electronically signed by: Qi Sharma M.D. 07/23/2024 2:[address] 07/23/24 13:11 CT cervical spine wo con CLINICAL HISTORY: Trauma. COMPARISON: None TECHNIQUE: Multiple axial CT images of the cervical spine were obtained without contrast. A dose lowering technique was utilized adhering to the principles of ALARA. FINDINGS: No cervical spine fracture or subluxation seen. There are mild degenerative changes. IMPRESSION: No cervical spine fracture seen. ACT 112: Negative or not required by law. The above report was generated using voice recognition software. It may contain grammatical, syntax or spelling errors. Electronically signed by: Flo Bautista M.D. 07/23/2024 1:59 PM Chest X-Ray 07/23/24 13:11 XR chest 1V portable CLINICAL HISTORY: Trauma COMPARISON STUDY: Chest CT July 12, 2021. FINDINGS: Lung volumes are normal. There are no airspace opacities. Linear left lower lung densities represent atelectasis. There is no pneumothorax or pleural effusion. Cardiac size is normal. Mediastinal contours are normal. There is no evidence for pulmonary edema. IMPRESSION: No acute cardiopulmonary findings. ACT 112: Negative or not required by law. Electronically signed by: Louis Roberts M.D. 07/23/2024 2:[address] 07/23/24 13:11 CT OF THE HEAD WITHOUT CONTRAST CLINICAL HISTORY: Trauma. Left-sided weakness. COMPARISON STUDY: Head CT June 12, 2021. TECHNIQUE: Helical axial images of the head were obtained without IV contrast. Automated exposure control was utilized for the study. A dose lowering technique was utilized adhering to the principles of ALARA. FINDINGS: This exam is mildly compromised by motion artifact. No acute intracranial hemorrhage, midline shift or mass effect is present. The ventricular system is unremarkable. The basal cisterns are patent. No extra- axial collections are present. There are no findings to suggest acute dural sinus thrombosis or acute territorial infarct. No significant calvarial abnormalities are present. Visualized portions of the sinuses and mastoid air cells are clear. IMPRESSION: 1. No acute intracranial findings. Exam mildly compromised by motion artifact. 2. No calvarial fractures. ACT 112: Negative or not required by law. Electronically signed by: Louis Roberts M.D. 07/23/2024 2:02 PM Pelvis X-Ray 07/23/24 13:11 XR pelvis 1-2V routine CLINICAL HISTORY: Trauma COMPARISON: None FINDINGS: Single view of the pelvis demonstrates an no acute traumatic injury. Is no fracture identified. No hip dislocation. Contrast material is identified within the ureters and bladder from a recent CT scan. IMPRESSION: Negative pelvis ACT 112: Negative or not required by law. Electronically signed by: Qi Sharma M.D. 07/23/2024 2:13 PM ECG Data Attestation: I personally reviewed and interpreted this ECG as follows: Rate (beats per minute): 61 Rhythm: + normal sinus ECG Intervals/blocks: + Normal SC and + Normal QT-c ECG ST segments: + Normal ST segments Additional Comments: QRS 76 MDM Narrative 1309: The patient was evaluated in room B7. A complete history and physical exam was performed Cardiac monitoring: An order was placed for continuous cardiac monitoring. The monitor shows a rate of 60 with sinus rhythm interpreted by me No code stroke called as the patient is on Xarelto and not a TNK candidate. Code trauma called this patient is a fall on Xarelto. 1322: CT of the head viewed by me shows no ICH. Will conduct CT angio head and neck in addition to trauma scans to make sure there is no large vessel occlusion causing patient's expressive aphasia. 1410: Vital signs stable. Patient is sleeping and snoring in no acute distress. CT of the head negative. 1450: Vital signs stable. Labs are unremarkable. Patient still having some mild expressive aphasia but is able to speak more when asking direct questions. Is unclear if the patient had a stroke or had a seizure. Discussed the case with on-call neurology Dr. Kang and he recommends an MRI of the patient and start the patient on Keppra 1 g loading dose followed by 500 mg twice daily. [facility] & Plan Fall, Seizure disorder, Stroke-like symptoms Discharge Plan Visit Data Chief Complaint: Trauma Stated Complaint: STROKE SX ED Provider: Dany Trotter Discharge Problem: Fall, Seizure disorder, Stroke-like symptoms Patient Disposition: Admitted As Inpatient Discharge Instructions Interventions: ED Discharge Assessment Last Done: 07/23/24 16:59
--- OUTSIDE RECORDS SUMMARY | 2024-07-23 20:17 | External Medical Summary | Summary of Care ---
Author Name Unknown Organization [facility] Address [address] [place] [address] Phone [phone] Care Team Providers Care Weather Algorithm Scientist Name Role Phone Rula Turpin MD Primary Care Provider + Reason for Visit * Reason Onset Date Comments TRIAGE 07/18/2024 Encounter Details Date Type Department Care Team (Late st Contact Info) Description 07/18/2024 Telephone Vascular Surg [facility] [address] [place] [address] Eduin Camarillo CRNP [address] [place] [address] TRIAGE Allergies Active Allergy Reactions Criticality Noted Date Comments Food (See Comments) 07/23/2013 Nuts Kiwi Extract Anaphylaxis High 07/23/2013 Metronidazole Hives 12/16/1997 Morphine Other (Please comment) High 08/11/2019 Difficulty breathing - was given Benadryl as treatment Other reaction(s): Shortness of breath Prochlorperazine Neuro complications (Please comment) 11/17/1997 Other reaction(s): Other (see comments) Dystonic reaction documented as of this encounter (statuses as of 07/18/2024) Medications dicyclomine (BENTYL) 10 MG Capsule One pill 3 times daily as needed 270 Cap 3 0 Active Additional Information Patient taking differently: 20 mg Oral TID PRN, Other, IBS, One pill 3 times daily as needed, Informant: At Discharge, Reported on 05/29/2024 Pantoprazole Sodium 20 MG Oral Tablet Delayed Release (Protonix)Indica tions:Non-intrac table vomiting with nausea, unspecified vomiting type,Heartburn TAKE 1 TAB BY MOUTH ONCE A DAY 1 HOUR BEFORE THE FIRST MEAL OF THE DAY 90 Tab 1 1 Active Additional Information Patient taking differently: 40 mg Oral Daily(AM), TAKE 1 TAB BY MOUTH ONCE A DAY 1 HOUR BEFORE THE FIRST MEAL OF THE DAY, Informant: At Discharge, Reported on 04/12/2021 Probiotic Daily Oral Capsule Take by mouth 1 Capsule daily . 3 billion cell capsule Active Tamsulosin HCl 0.4 MG Oral Capsule (Flomax)Indicati ons:Dysuria,Neph rolithiasis Take 1 Cap by mouth daily. 90 Cap 1 Active Ondansetron HCl 4 MG Oral Tablet (Zofran)Indicati ons:Nausea,Venou s thrombosis take 1 tablet by mouth every 6 hours if needed for nausea 30 Tablet 2 2 Active Albuterol Sulfate HFA 108 (90 Base) MCG/ACT Inhalation Aerosol SolutionIndicati ons:Bronchitis, complicated Inhale by mouth 2 Puffs as needed in the morning AND 2 Puffs as needed at noon AND 2 Puffs as needed in the evening AND 2 Puffs as needed before bedtime for Shortness of Breath or Wheezing. 18 g 3 2 Active LORazepam 0.5 MG Oral Tablet (Ativan)Indicati ons:Anxiety Take 1 Tablet by mouth every 8 hours as needed for Anxiety or Sleep. 90 Tablet 3 Active Rivaroxaban 20 MG Oral Tablet (Xarelto)Indicat ions:Leg swelling,Acute deep vein thrombosis (DVT) of calf muscle vein of left lower extremity (HCC) take 1 tablet by mouth once daily with dinner 90 Tablet 1 4 Active SUMAtriptan Succinate 50 MG Oral Tablet (Imitrex)Indicat ions:Migraine variant take 2 tablets by mouth AT ONSET OF HEADACHE and take 1 tablet every 2 hours if needed (MAX OF 4 TABLETS PER 24 HOURS 11 Tablet 11 4 Active Topiramate 200 MG Oral Tablet (topAMAX) Take 1 Tablet by mouth in the morning and 1 Tablet before bedtime. 180 Tablet 1 4 Active FLUoxetine HCl 40 MG Oral Capsule (PROzac)Indicati ons:Current mild episode of major depressive disorder without prior episode (HCC) Take 1 Capsule by mouth in the morning. 90 Capsule 1 5 Active oxyCODONE HCl 5 MG Oral Tablet (Oxy IR)Indications:M EDICATION USE AGREEMENT,Recurr ent deep vein thrombosis (DVT) (HCC) Take 1 Tablet by mouth every 6 hours as needed for Pain, Severe. 120 Tablet 5 Active Gabapentin 400 MG Oral Capsule (Neurontin)Indic ations:Chronic pain of left lower extremity Take 1 Capsule by mouth in the morning and 1 Capsule at noon and 1 Capsule before bedtime. 90 Capsule 5 5 Active hydrOXYzine HCl 25 MG Oral TabletIndication s:JOSE DAVID (generalized anxiety disorder) Take 1 Tablet by mouth every 6 hours as needed for Anxiety. 120 Tablet 3 5 Active documented as of this encounter (statuses as of 07/18/2024) Active Problems Problem Noted Date Diagnosed Date Obesity, Class I, BMI 30.0-34.9 (see actual BMI) 02/22/2021 Seizure 11/02/2020 Moderate persistent asthma without complication 11/02/2020 Migraine variant 05/26/2020 Current mild episode of prince r depressive disorder without prior episode 10/11/2018 PTSD (post-traumatic stress disorder) 07/05/2018 Recurrent deep vein thrombosis (DVT) 01/26/2017 MEDICATION USE AGREEMENT 08/15/2013 Factor V Leiden 08/06/2013 [facility] current use of anticoagulant therapy 0 06/26/2013 Overview (03/26/2017): ICD-10 update of inactive term Ulcerative colitis Seizure disorder Chronic leg pain documented as of this encounter (statuses as of 07/18/2024) Resolved Problems Problem Noted Date Diagnosed Date Resolved Date Acute midline low back pain without sciatica 0 04/12/2020 Other pulmonary embolism wit hout acute cor pulmonale 01/09/2020 05/25/2020 Other pulmonary embolism and infarction 06/26/2013 05/31/2017 Venous thrombosis 06/26/2013 02/07/2019 Anticoagulation management encounter 06/26/2013 02/07/2019 URIN TRACT INFECTION NOS with sepsis 10/22/2002 10/22/2002 CHR STOMACH ULCER NOS 09/10/20022018 Encounter for supervision of other normal 07/29/2001 11/07/2001 Overview (10/26/2015): ICD-10 update of inactive term ABN PAP SMEAR-CERVIX 017 EDWARD DEF CLOT FACTOR NEC Leiden V mutation 05/31/2017 documented as of this encounter (statuses as of 07/18/2024) Immunizations Name Administration Dates Next Due DTWP - Dipth/Tet/Whole Cell Pertussis ,03/11/1974,08/26/1973,12/23,1972 Diptheria/Tetanus (Adult) 07/09/1987 MMR - Measles/Mumps/Rubella Vaccine 07/18/1990 Measles Vaccine 06/10/1973 Mumps Vaccine 11/02/1973 OPV - Polio Virus Vaccine (Oral) 03/21/1978,01/24,1972 PPD 04/20/2021,,04/27/2017,08/2002,08/26/2001,12/22/1996 08/26/2003 Pneumococcal Polysaccharide PPV23 (Pneumovax) 03/23/2014 Rubella Vaccine 09/30/1973 Seasonal Influenza Vac., MDV , IM, 0.5 mL (Fluzone) 03/23/2014,08/15/2013 Seasonal Influenza, PF, 6 M & above, IM , (FluLaval or Fluzone) 04/11/2021,05/26/2020,03/06/2019,07/26 Seasonal Influenza, Quadriva lent, No Preserve, IM 05/29/2016 TB Maribel Test 07/18/1990, 9,09/24/1984,06/25 TDAP, Age 7 and older, IM (Adacel) 05/29/2024, documented as of this encounter Social History Tobacco Use Types Packs/Day Years Used Date Smoking Tobacco: Every Day Cigarettes 0.3 10 Started: 06/13/2007; Last attempted to quit: 06/13/2017 Smokeless Tobacco: Never Comments:occ smoker with marcie f periods of abstenence Alcohol Use Standard Drinks/Week Comments No 0 (1 standard drink = 0.6 oz pur e alcohol) PHQ-2 Answer Date Recorded PHQ-2 Score 11 05/26/2020 Hunger Vital Sign Answer Date Recorded Within the past 12 months, y ou worried that your food would run out before you got the money to buy more. Never true 05/26/20 20 Within the past 12 months, t he food you bought just didn't last and you didn't have money to get more. 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 Left message to return phone call Liya Steward LPN 07/18/2024 11:49 AM * Telephone Encounter - Eduin Camarillo CRNP - 07/18/2024 7:21 AM EST Liya, Offer clinic visit. Any provider (except [facility]). Any location. Schedule from [employer] SERGEI Lozano 07/18/2024 7:21 AM documented in this encounter Plan of Treatment Upcoming Encounters Date Type Department Care Team (Late st Contact Info) Description 07/22/2024 2:30 PM EST Pharmacy Pharmacy, [facility] [place] [address] [place] [address] Pharmacist1, [facility] [address] [facility] [place] [address] 09/02/2024 1:20 PM EDT Office Visit General Internal Medicine [facility] [place] [address] [place], [place] [address] Rula Turpin MD [address] [place], [place] [address] Scheduled Procedures Name Priority Associated Diagnoses Date/Ti me COLONOSCOPY FLEXIBLE PROXIMAL DIAGNOSTIC Recall Screen for colon cancer Health Maintenance Due Date Last Done Comments DISCUSS TOBACCO CESSATION (REFER TO SMARTSET #[id number]) 1972 Hepatitis C Screening 1990 Hepatitis B Vaccine (1 of 3 - 19+ 3-dose series) 09/19/1991 HPV/Co-Test 2002 Pneumococcal Vaccine: 50+ Years (2 of 2 - PCV) 03/23/2015 03/23/2014 Cologuard 2017 Fecal Occult Blood Test 2017 Sigmoidoscopy 2017 *SPIROMETRY ONCE FOR ASTHMA-ADULT 11/04/2020 Depression Monitoring 05/26/2021 05/26/2020 Mammogram 11/16/2021 11/16/2020, 12/2018, 09/06/2015, Additional history exists Zoster Vaccines (1 of 2) 2022 Cervical Cancer Screening 06/02/2023 Pap Smear 06/02/2023 06/02/2020, 10/2015, 11/07/2001 COVID-19 Vaccine ( - season) 2024 08/10/2020, 07/20/2020 Influenza Vaccine (FLU shot) (#1) 2024 04/11/2021, 05/26/2020, 03/06/2019, Additional history exists Lipid Panel 01/08/2025 01/09/2020, 05/29/2016 Diabetes Screening 04/21/2027 04/21/2024, 1 , 04/18/2024, Additional history exists Colonoscopy 04/20/2033 04/20/2023, 08/23, 09/10/2019, Additional history exists Colorectal Cancer Screening 04/20/2033 DTap/Tdap Vaccines (8 - Td or Tdap) 05/29/2034 05/29/2024, 11/07/2013, 07/09/1987, Additional history exists HPV (Gardasil) Vaccine Aged Out No lo nger eligible based on patient's age to complete this topic MENINGOCOCCAL (MENACTRA/MENVEO) Aged Out No longer eligible based on patient's age to complete this topic documented as of this encounter Medical Devices Not on filedocumented as of this encounter Advance Directives * Full Code (Latest Code Status on File) Date Activated Date Inactivated Comments 04/24/2014 8:03 AM 04/24/2014 4:12 PM This order reflects the patients wishes and were consensually agreed upon. Care Teams Weather Algorithm Scientist Relationship Specialty Start Date End Date Rula Turpin MD [address] [facility] [place], [place] [address] PCP - General Internal Medicine 05/31/17 documented as of this encounter
--- OUTSIDE RECORDS SUMMARY | 2024-07-23 20:17 | External Medical Summary | Summary of Care ---
Author Name Unknown Organization [facility] Address [address] [facility] [place] [address] Phone [phone] Care Team Providers Care Clasp Machine Operator Name Role Phone Rula Turpin MD Primary Care Provider + Reason for Referral * Evaluate & Treat - Unlimited Visits (Within 3 days (urgent)) - Authorized Specialty Diagnoses / Procedures Referred By Contac t Referred To Contact Pharmacist / Pharmacy Diagnoses Chronic pain of left lower extremity Rula Turpin MD [address] [place] [address] Phone: tel: fax: Referral ID Status Reason Start Date Expiration Date Visits Requested Visits Authorized [id number] Authorized Specialty Services Required 07/17/2024 01/13/2025 99 99 Question Answer Referral Priority Within 3 days (urgent) Where should this appointment be scheduled? [facility] Referring Provider Role: Primary Care Reason for Referral: Med Review Comments Pharmacist Medication Therapy Management: Please eval for significant left lower pain despite on med from acute on chronic DVT left leg, foot and bakcpain. Minimum frequency patient should be seen in person for medication management: as appropriate per clinical condition and patient status By my signature, I understand that my patient Jemima Pierce will have her medication therapy managed by the [facility] Medication [facility] ([facility]) per established policies, procedures, and protocols. I also certify that this referral may serve as an initiation of service for the management of drug therapy in the above noted patient. [facility] providers will be responsible for scheduling patient visits, obtaining appropriate laboratory studies, and adjusting medication management therapy per patient's need, in addition to those roles spelled out in the clinic policy, procedures, and drug management protocols. I understand that the service provided by the [facility] Clinic is voluntary and have informed patient that they can refuse the service at their discretion. I am aware that the [facility] will provide me with a copy of the patient encounter via [facility]. I authorize the [facility] to carry out these activities on my behalf. I consider this program to be a necessary part of the patient's medical care. Rula Turpin MD * Evaluate & Treat - Unlimited Visits (Within 30 days (routine)) - Authorized Specialty Diagnoses / Procedures Referred By Contact Referred To Contact Vascular Surgery / Cardiovascular Surgery Diagnoses Acute deep vein thrombosis (DVT) of calf muscle vein of left lower extremity (HCC) Rula Turpin MD [address] [place] [address] Phone: tel: fax: Referral ID Status Reason Start Date Expiration Date Visits Requested Visits Authorized [id number] Authorized Specialty Services Required 07/17/[phone] Question Answer Referral Priority Within 30 days (routine) Where should this appointment be scheduled? [facility] What condition is the patient being seen for? Leg swelling Has the patient has a VASUCLAR DUPLEX VENOUS INSUFFICIENCY LIMITED LE (for single leg symptoms) or VASCULAR DUPLEX VENOUS INSUFFICIENCY COMPLETE BILATERAL LE (for both legs) completed in the last year that showed venous insufficiency? Yes Comments Patient with history of recurrent DVT and left lower extremity, recent left foot fracture around March of 2024 and had 2 surgeries done by ortho in [facility], history of the Factor V Leiden mutation, recent ER visit with worsening left lower extremity pain and swelling and venous duplex showed persistence of DVT in left peroneal vein. Thanks. 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 therapy; Chronic pain of left lower extremity; JOSE DAVID (generalized anxiety disorder) Allergies Active Allergy Reactions Criticality Noted Date Comments Food (See Comments) 07/23/2013 Nuts Kiwi Extract Anaphylaxis High 07/23/2013 Metronidazole Hives 12/16/1997 Morphine Other (Please comment) High 08/11/2019 Difficulty breathing - was given Benadryl as treatment Other reaction(s): Shortness of breath Prochlorperazine Neuro complications (Please comment) 11/17/1997 Other reaction(s): Other (see comments) Dystonic reaction documented as of this encounter (statuses as of 07/17/2024) Medications dicyclomine (BENTYL) 10 MG Capsule One pill 3 times daily as needed 270 Cap 3 0 Active Additional Information Patient taking differently: 20 mg Oral TID PRN, Other, IBS, One pill 3 times daily as needed, Informant: At Discharge, Reported on 05/29/2024 Pantoprazole Sodium 20 MG Oral Tablet Delayed Release (Protonix)Indic ations:Non-intr actable vomiting with nausea, unspecified vomiting type,Heartburn TAKE [...] Active Tamsulosin HCl 0.4 MG Oral Capsule (Flomax)Indicat ions:Dysuria,Ne phrolithiasis Take 1 Cap by mouth daily. 90 Cap 1 Active Ondansetron HCl 4 MG Oral Tablet (Zofran)Indicat ions:Nausea,Harsh ous thrombosis take 1 tablet by mouth every 6 hours if needed for nausea 30 Tablet 2 03/15/202 2 Active Albuterol Sulfate HFA 108 (90 Base) MCG/ACT Inhalation Aerosol SolutionIndicat ions:Bronchitis , complicated Inhale by mouth 2 Puffs as needed in the morning AND 2 Puffs as needed at noon AND 2 Puffs as needed in the evening AND 2 Puffs as needed before bedtime for Shortness of Breath or Wheezing. 18 g 3 2 Active LORazepam 0.5 MG Oral Tablet (Ativan)Indicat ions:Anxiety Take 1 Tablet by mouth every 8 hours as needed for Anxiety or Sleep. 90 Tablet 3 Active Rivaroxaban 20 MG Oral Tablet (Xarelto)Indica tions:Leg swelling,Acute deep vein thrombosis (DVT) of calf muscle vein of left lower extremity (HCC) take 1 tablet by mouth once daily with dinner 90 Tablet 1 4 Active SUMAtriptan Succinate 50 MG Oral Tablet (Imitrex)Indica tions:Migraine variant take 2 tablets by mouth AT ONSET OF HEADACHE and take 1 tablet every 2 hours if needed (MAX OF 4 TABLETS PER 24 HOURS 11 Tablet 11 4 Active Topiramate 200 MG Oral Tablet (topAMAX) Take 1 Tablet by mouth in the morning and 1 Tablet before bedtime. 180 Tablet 1 4 Active FLUoxetine HCl 40 MG Oral Capsule (PROzac)Indicat ions:Current mild episode of major depressive disorder without prior episode (HCC) Take 1 Capsule by mouth in the morning. 90 Capsule 1 5 Active oxyCODONE HCl 5 MG Oral Tablet (Oxy IR)Indications: MEDICATION USE AGREEMENT,Recur rent deep vein thrombosis (DVT) (HCC) Take 1 Tablet by mouth every 6 hours as needed for Pain, Severe. 120 Tablet 5 Active Gabapentin 400 MG Oral Capsule (Neurontin)Kalpana cations:Chronic pain of left lower extremity Take 1 Capsule by mouth in the morning and 1 Capsule at noon and 1 Capsule before bedtime. 90 Capsule 5 5 Active hydrOXYzine HCl 25 MG Oral TabletIndicatio ns:JOSE DAVID (generalized anxiety disorder) Take 1 Tablet by mouth every 6 hours as needed for Anxiety. 120 Tablet 3 5 Active Gabapentin 100 MG Oral Capsule (Neurontin) Take 2 Capsules by mouth in the morning and 2 Capsules at noon and 2 Capsules before bedtime. 180 Capsule 5 4 025 Discontin ued(Medic ation/Dos e Changed) documented as of this encounter (statuses as of 07/17/2024) Active Problems Problem Noted Date Diagnosed Date Obesity, Class I, BMI 30.0-34.9 (see actual BMI) 02/22/2021 Seizure 11/02/2020 Moderate persistent asthma without complication 11/02/2020 Migraine variant 05/26/2020 Current mild episode of prince r depressive disorder without prior episode 10/11/2018 PTSD (post-traumatic stress disorder) 07/05/2018 Recurrent deep vein thrombosis (DVT) 01/26/2017 MEDICATION USE AGREEMENT 08/15/2013 Factor V Leiden 08/06/2013 intermediate accountant current use of anticoagulant therapy 0 06/26/2013 Overview (03/26/2017): ICD-10 update of inactive term Ulcerative colitis Seizure disorder Chronic leg pain documented as of this encounter (statuses as of 07/17/2024) Resolved Problems Problem Noted Date Diagnosed Date [...] as of this encounter (statuses as of 07/17/2024) Immunizations Name Administration Dates Next Due PPD 04/20/2021,11/02/2020,04/27/2017 Pneumococcal Polysaccharide PPV23 (Pneumovax) 03/23/2014 Seasonal Influenza Vac., MDV , IM, 0.5 mL (Fluzone) 03/23/2014,08/15/2013 Seasonal Influenza, PF, 6 M & above, IM , (FluLaval or Fluzone) 04/11/2021,05/26/2020,03/06/2019,08/05 Seasonal Influenza, Quadriva lent, No Preserve, IM 05/29/2016 TDAP, Age 7 and older, IM (Adacel) [...] 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 History of Present Illness Jemima Pierce is a 53 year old female with a history of moderate persistent asthma, recurrent deep vein thrombosis, on Xarelto, chronic lower leg pain, seizure disorder, history of migraine, Factor VLeiden mutation, history of long- term anticoagulation therapy, anxiety, depression, posttraumatic stress disorder, history of GERD, recently got a reestablished with us last month when she decided tomove back to the area from [place], was following up with ortho over there for left foot fracture and now was planning to reestablish with another ortho provider locally, that presents for Hospital Follow-Up Patient is here for the ER follow up. On July 14 she ended up in Emergency Room with significant left foot pain and swelling. As per the review of the chart and discussion with the patient she ended up in Emergency Room via private vehicle for evaluation of the left foot swelling and pain. She had 2 surgeries done in left foot due to fracture from the fall few weeks back. First surgery was in March and the 2nd 1 was in April. Patient reported that she was seen by orthopedic at [facility] approximately few weeks back. Patient had lower extremity venous duplex done which showed no DVT, interval decrease with residualDVT involving left peroneal vein. ER physician contacted Dr. Geremias Turpin from Hematology-Oncology and after discussion of the case it was decided to continue Xarelto as anticoagulation for the patient and to follow up with the vascular surgeon for further evaluation. Patient was given contact information for Dr. Gerhard Dang and was advised to follow up with them locally here. For pain control she was advised to continue current outpatient pain medications and was given oral and I am pain treatment while in the Emergency Room. She was also advised to continue compression stocking as a DVT pr ophylaxis. Vitals were stable overall while in the hospital. No change in discharge medications were made. X-ray of the left foot showed no definitive fracture and osteopenia. Venous duplex showed interval decrease of left leg DVT and there is a residual DVT involving left peroneal vein. Discussed not taking Nsaids along with anticoagulation. Discussed seeing psychologist and psychiatrist. In the clinic today patient is using inappropriate language, yelling and using the F word stating she is in lot of pain and would like to have more pain medication, higher dosage and hydroxyzine 50 mg 4 times a day which we have never prescribed her before.We discussed seeing counsellor, psychiatrist and also I can give her hydroxyzine 25 mg 3 to 4 times daily. Offered higher dose of gabapentin 400 mg three times daily and to continue oxycodone current dose and see vascular, [facility]TM pain medicine. Pt started yelling again, used inappropriate words and I conveyed her about respecting each other and we are here to help and will be happy to do best of my knowledge and whatever right way I can help her. Physical Exam There were no vitals filed for this visit. BP Readings from Last 3 Encounters: 05/29/24 108/60 01/26/22 106/78 10/15/21 112/60 Wt Readings from Last 3 Encounters: 01/26/22 157 lb (71.2 kg) 10/15/21 167 lb 9.6 oz (76 kg) 04/01/21 179 lb 9.6 oz (81.5 kg) BMI Readings from Last 3 Encounters: 01/26/22 27.81 kg/m 10/15/21 29.69 kg/m 04/01/21 31.81 kg/m Ht Readings from Last 3 Encounters: 10/15/21 5' 3" (1.6 m) 04/01/21 (!) 5' 3" (1.6 m) 12/14/20 (!) 5' 3" (1.6 m) neck supple CVS: RRR, no murmurs, rubs or gallops, s1 s 2normal. RESP: clear to auscultation, no wheezing or crackles ABD: soft, NT/ND, BS normal, no hepatosplenomegaly EXT: Left lower leg, ankle, foot edema, no cyanosis, peripheral pulses palpable bilaterally No large joint swelling, no redness, range of motion normal. Gait slow but normal No focal weakness Mood upset I have reviewed the following results: CMP and CBC Assessment and Plan Acute deep vein thrombosis (DVT) of calf muscle vein of left lower extremity (HCC) (Primary) - VASCULAR SURGERY REFERRAL OP Continue compression stocking and continue xarelto current dose. Seizure (HCC) Stable on current med. MEDICATION USE AGREEMENT On gabapentin, oxycodone. Increase the dose of gabapentin. Acute deep vein thrombosis (DVT) of calf muscle vein of left lower extremity (HCC) (Primary) - VASCULAR SURGERY REFERRAL OP Seizure (HCC) Stable. 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 Continue current dosage. Chronic pain of left lower extremity - increase Gabapentin 400 MG Oral Capsule (Neurontin); Take 1 Capsule by mouth in the morning and 1Capsule at noon and 1 Capsule before bedtime. - PHARMACIST MEDS THERAPY MGMT REFERRAL OP Continue current dose of oxycodone. ER for any emergencies in the meantime. JOSE DAVID (generalized anxiety disorder) - restart hydrOXYzine HCl 25 MG Oral Tablet; Take 1 Tablet by mouth every 6 hours as needed for Anxiety. Strongly advised follow up with psychiatrist and psychologist. Follow Up: Return in about 3 months (around 10/15/2024) for Return with Physician. | For: Return with Physician | Check-out note: [facility] pain clinic. Wrap-Up Time: I spent a total of 30-39 minutes (exact time 35 mins) on the date of service in preparation, delivery, and documentation of the care provided to Jemima Pierce excluding any time spent in the performance of separately billed services. documented in this encounter Nursing Notes * Aga Oliveros CMA - 07/17/2024 1:23 PM EST Patient presents today for hospital d/c follow up. She was seen at [facility] on 07/14/24 due to left footpain and swelling. This foot was previously fractured and she underwent procedures in March and April. She is with history of factor V and anticoagulation therapy of Xerelto. Venous doppler showed notable DVT of the left peroneal vein. Dr. Turpin in Hematology was contacted and consulted. No changes necessary to her medication, but is to follow up with vascular surgery. She is in significant pain, she is tearful and understandably upset in office. She is struggling to walk, pain is 10/10 if not more. She is unable to sleep, her foot is red/purple and extremely swollen.Medication management is not helping her at this point. Patient is very upset. Acknowledge that her frustration is not with me or her provider, it is just being directly left out on me. documented in this encounter Plan of Treatment Upcoming Encounters Date Type Department Care Team (Late st Contact Info) Description 09/02/2024 1:20 PM EDT Office Visit General Internal Medicine [facility] [address] [place] [address] Rula Turpin MD [address] [place] [address] Scheduled Procedures Name Priority Associated Diagnoses Date/Ti me COLONOSCOPY FLEXIBLE PROXIMAL DIAGNOSTIC Recall Screen for colon cancer Scheduled Referrals Name Type Priority Associated Diagnoses Orde r Schedule VASCULAR SURGERY REFERRAL OP Referral Within 30 days (routine) Acute deep vein thrombosis (DVT) of calf muscle vein of left lower extremity (HCC) Ordered: 07/17/2024 PHARMACIST MEDS THERAPY MGMT REFERRAL OP Referral Within 3 days (urgent) Chronic pain of left lower extremity Ordered: 07/17/2024 Health Maintenance Due Date Last Done Comments Hepatitis C Screening 1990 Hepatitis B Vaccine (1 of 3 - 19+ 3-dose series) 09/19/1991 HPV/Co-Test 2002 Pneumococcal Vaccine: 50+ Years (2 of 2 - PCV) 03/23/2015 03/23/2014 Cologuard 2017 Fecal Occult Blood Test 2017 Sigmoidoscopy 2017 *SPIROMETRY ONCE FOR ASTHMA-ADULT 11/04/2020 Depression Monitoring 05/26/2021 05/26/2020 Mammogram 11/16/2021 11/16/2020, 06/0 12/2018, 09/06/2015, Additional history exists Zoster Vaccines (1 of 2) 2022 Cervical Cancer Screening 06/02/2023 Pap Smear 06/02/2023 06/02/2020, 1210/2015, 11/07/2001 COVID-19 Vaccine ( season) 2024 08/10/2020, 07/20/2020 Influenza Vaccine (FLU [...] Not on filedocumented as of this encounter Visit Diagnoses Diagnosis Acute deep vein thrombosis (DVT) of calf muscle vein of left lower extremity (HCC)- Primary Seizure (HCC) Other convulsions MEDICATION USE AGREEMENT Factor V Leiden (HCC) Primary hypercoagulable state intermediate accountant current use of anticoagulant therapy Chronic pain of left lower extremity JOSE DAVID (generalized anxiety disorder) Generalized anxiety disorder documented in this encounter Advance Directives * Full Code (Latest Code Status on File) Date Activated Date Inactivated Comments 04/24/2014 8:03 AM 04/24/2014 4:12 PM This order reflects the patients wishes and were consensually agreed upon. Care Teams Clasp Machine Operator Relationship Specialty Start Date End Date Rula Turpin MD [address] [place] [address] PCP - General Internal Medicine 05/31/17 documented as of this encounter
--- OUTSIDE RECORDS SUMMARY | 2024-07-23 20:17 | External Medical Summary | Summary of Care ---
Author Name Unknown Organization [facility] Address [address] [place] [address] Phone [phone] Care Team Providers Care Supervisor Pipeline Maintenance Name Role Phone Rula Turpin MD Primary Care Provider + Reason for Visit * Reason Onset Date Comments TRIAGE 07/18/2024 Encounter Details Date Type Department Care Team (Late st Contact Info) Description 07/18/2024 Telephone Vascular Surg [facility] [address] [place] [address] Eduin Camarillo CRNP [address] [place] [address] TRIAGE Allergies Active Allergy Reactions [...] USE AGREEMENT 08/15/2013 Factor V Leiden 08/06/2013 alf current use of anticoagulant therapy 0 06/26/2013 [...] 07/18/2024) Immunizations Name Administration Dates Next Due PPD [...] 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 Any provider (except [facility]). Any location. Schedule from [employer]. SERGEI Lozano 07/18/2024 7:21 AM documented in this encounter Plan of Treatment Upcoming Encounters Date Type Department Care Team (Late st Contact Info) Description 07/22/2024 2:30 PM EST Pharmacy Pharmacy, [facility] [address] [facility] [place] [address] Pharmacist1, [facility] [address] [facility] [address] [place] [id number] 09/02/2024 1:20 PM EDT Office Visit General Internal Medicine [facility] [address] [place] [address] Rula Turpin MD [address] [facility] [address] [place] [address] Scheduled Procedures Name Priority Associated Diagnoses Date/Ti me COLONOSCOPY FLEXIBLE PROXIMAL DIAGNOSTIC Recall Screen for colon cancer Health Maintenance Due Date Last Done Comments DISCUSS TOBACCO CESSATION (REFER TO SMARTSET #[id number]) 1972 Hepatitis C Screening 1990 Hepatitis B [...] Cancer Screening 06/02/2023 Pap Smear 06/02/2023 06/02/2020, 12/10/2015, 11/07/2001 COVID-19 Vaccine ( season) 2024 08/10/2020, [...] and were consensually agreed upon. Care Teams Supervisor Pipeline Maintenance Relationship Specialty Start Date End Date Rula Turpin MD [address] [facility] [place] [address] PCP - General Internal Medicine 05/31/17 documented as of this encounter
[2024-07-23] MEDS: RIVAROXABAN 20 MG TAB PO SCH (20:21)
[2024-07-23] MEDS: TOPIRAMATE 100 MG TAB PO SCH (20:22)
[2024-07-23] MEDS: oxyCODONE HCL IR 5 MG TAB (IMMEDIATE RELEASE) PO PRN (20:23)
[2024-07-23] MEDS: levETIRAcetam 500 MG TAB PO SCH (20:23)
--- NOTE | 2024-07-23 22:38 | Magnetic Resonance Report ---
Exam(s): MRI HEAD Without Contrast EXAM: MR Head Without Intravenous Contrast CLINICAL HISTORY: Reason for exam: rule out stroke. TECHNIQUE: Magnetic resonance images of the head/brain without intravenous contrast in multiple planes. COMPARISON: Prior head CT from July 23, 2024.. FINDINGS: This study is limited secondary to motion artifact. Brain: Unremarkable. No mass. No hemorrhage. No acute infarct. The flow voids at the base of the brain are intact. Ventricles: Unremarkable. No ventriculomegaly. Bones/joints: Unremarkable. No acute fracture. Sinuses: Chronic ethmoid sinusitis. No acute sinusitis. Mastoid air cells: Unremarkable as visualized. No mastoid effusion. Orbits: Unremarkable as visualized. IMPRESSION: No evidence of acute intracranial pathology. Electronically signed by: Nadiya Carpenter MD 07/23/24 22:37 PM
[2024-07-23] MEDS: ACETAMINOPHEN 325 MG TAB PO PRN (23:46)
[2024-07-24] MEDS: KETOROLAC TROMETHAMINE 15 MG/ML VIAL IV ONE ×2 (00:43→04:33)
[2024-07-24 08:05] LABS: BUN Creatinine Ratio 30.3 (10-20); Basophils # (auto) 0.06 K/uL (0.00-0.20); Basophils % (auto) 0.7 %; Calcium 9.1 mg/dl (8.6-10.3); Creatinine Clr Calc Pharmacy 74.5 ml/min; Eosinophils % (auto) 1.2 %; Hematocrit (blood only) 42.9 % (37.0-47.0); Immature Granulocytes # (auto) 0.06 K/uL (0.01-0.20); Immature Granulocytes % (auto) 0.7 %; Lymphocytes # (auto) 3.83 K/uL (1.20-3.40); Lymphocytes % (auto) 44.1 %; Mean Corpuscular Hemoglobin 32.1 pg (25.0-34.0); Mean Corpuscular Volume 91.7 fL (80.0-100.0); Mean Platelet Volume 9.9 fL (9.4-12.4); Monocytes % (auto) 9.2 %; Neutrophils # (auto) 3.83 K/uL (1.40-6.50); Neutrophils % (auto) 44.1 %; Platelet Count 175 K/uL (130-400); RDW Coefficient of Variation 12.9 % (11.5-14.5); RDW Standard Deviation 42.3 fL (36.4-46.3); Red Blood Count 4.68 M/uL (4.20-5.40); White Blood Count 8.68 K/ul (4.8-10.8)
[2024-07-24] MEDS: FLUoxetine HCL 20 MG CAP PO SCH (08:42)
[2024-07-24] MEDS: ASPIRIN 81 MG ECTAB PO SCH (08:42)
[2024-07-24] MEDS: ATORVASTATIN 40 MG TAB PO SCH (08:42)
[2024-07-24] MEDS: CHOLECALCIFEROL 125 MCG (5,000 UNITS) TAB PO SCH (08:42)
[2024-07-24] MEDS: oxyCODONE HCL IR 5 MG TAB (IMMEDIATE RELEASE) PO PRN (08:48)
[2024-07-24 09:24] LABS: Estimated Average Glucose 100 mg/dl; Hemoglobin A1C 5.1 % (4.5-5.6)
--- NOTE | 2024-07-24 10:07 | Electrocardiogram Report ---
Test Reason : Blood Pressure : */* mmHG Vent. Rate : 66 BPM Atrial Rate : 66 BPM P-R Int : 158 ms QRS Dur : 78 ms QT Int : 430 ms P-R-T Axes : 77 74 83 degrees QTcB Int : 450 ms Normal sinus rhythm Normal ECG When compared with ECG of 23-Jul-2024 13:37, Premature atrial complexes are no longer Present Confirmed by Richi Tamez ([id number]) on 07/24/2024 10:06:35 AM Referred By: REFERRED SELF Confirmed By: Richi Tamez
[2024-07-24] MEDS: DICLOFENAC SOD 1% GEL 100 GM TUBE EXT SCH ×2 (10:55→16:40)
--- NOTE | 2024-07-24 12:57 | Electroencephalogram ---
EEG Procedure Note Date of Service July 24, 2024 Start / End Times Start Time: 06 End Time: [address] Cheung History A 53-year-old female with seizure-like activity. EEG performed for evaluation of epileptiform activity. Home Medication List Medication Instructions Recorded Confirmed Type albuterol sulfate 90 mcg/actuation 2 puff inhalation QID PRN 06/02/18 07/23/24 History aerosol inhaler Shortness Of Breath Or Wheezing sumatriptan succinate 50 mg tablet 50 mg PO UD PRN Migraine Headache 06/02/18 07/23/24 History topiramate 200 mg tablet 200 mg PO BID 06/02/18 07/23/24 History fluoxetine 40 mg capsule 40 mg PO QAM 10/25/18 07/23/24 History lactobacillus combination no.4 3 0 mmu cells PO QAM 08/10/19 07/23/24 History billion cell capsule (Probiotic) dicyclomine 20 mg tablet 20 mg PO TID PRN IBS 04/05/21 07/23/24 History docusate sodium 100 mg tablet 100 mg PO BID PRN Constipation #30 06/13/21 07/23/24 Rx tabs ondansetron HCl 4 mg tablet 4 mg PO Q6H PRN Nausea 07/12/21 07/23/24 History rivaroxaban 20 mg tablet (Xarelto) 20 mg PO QDD 07/12/21 07/23/24 History oxycodone 5 mg tablet 5 mg PO Q6H PRN Pain 07/17/24 07/23/24 History acetaminophen 650 mg 650 mg PO Q8H PRN mild pain (scale 07/20/24 07/23/24 Rx tablet,extended release (Tylenol 8 score 1-4) #60 tabs Hour) baclofen 10 mg tablet 10 mg PO TID #90 tabs 07/20/24 07/23/24 Rx cholecalciferol (vitamin D3) 125 125 mcg PO QAM #30 tabs 07/20/24 07/23/24 Rx mcg (5,000 unit) tablet diclofenac sodium 1 % topical gel 2 g EXT QID #100 grams 07/20/24 07/23/24 Rx (Voltaren Arthritis Pain) famotidine 20 mg tablet 20 mg PO BID 7 days #14 tabs 07/20/24 07/23/24 Rx ibuprofen 400 mg tablet 400 mg PO Q8H PRN mild to moderate 07/20/24 07/23/24 Rx pain 7 days #21 tabs methylprednisolone 4 mg tablets in 4 mg PO DAILY #21 ea 07/20/24 07/23/24 Rx a dose pack (Medrol ([place])) pregabalin 75 mg capsule (Lyrica) 75 mg PO TID #90 caps 07/20/24 07/23/24 Rx tapentadol 50 mg tablet (Nucynta) 50 mg PO Q4H PRN severe pain 07/20/24 07/23/24 Rx (scale score 7-10) #30 tabs Inpatient Medication List Acetaminophen (Acetaminophen 325 Mg Tab) 650 mg PO Q4H PRN PRN Reason: Pain or Fever Stop: 08/22/24 17:35 Last Admin: 07/23/24 23:46 Dose: 650 mg Documented By: RA Aspirin (Aspirin 81 Mg Ectab) 81 mg PO DAILY [facility] Stop: 08/23/24 08:59 Last Admin: 07/24/24 08:42 Dose: 81 mg Documented By: CASSANDRA Atorvastatin Calcium (Atorvastatin 40 Mg Tab) [facility] [place] Stop: 08/23/24 08:59 Last Admin: 07/24/24 08:42 Dose: 40 mg Documented By: CASSANDRA Diclofenac Sodium (Diclofenac Sod 1% Gel 100 Gm Tube) 2 gm EXT DAILY [facility]; Protocol Stop: 08/24/24 08:59 Last Admin: 07/24/24 10:55 Dose: 2 gm Documented By: CLAY Fluoxetine HCl (Fluoxetine Hcl 20 Mg Cap) 40 mg PO QAM [facility] Stop: 08/23/24 08:59 Last Admin: 07/24/24 08:42 Dose: 40 mg Documented By: CASSANDRA Levetiracetam (Levetiracetam 500 Mg Tab) 500 mg PO BID [facility] Stop: 08/22/24 20:59 Last Admin: 07/24/24 08:42 Dose: 500 mg Documented By: Admin: 07/23/24 20:23 Dose: 500 mg Documented By: RA Oxycodone HCl (Oxycodone Hcl Ir 5 Mg Tab (Immediate Release)) 5 - 10 mg PO QID PRN PRN Reason: Pain Stop: 08/07/24 04:08 Last Admin: 07/24/24 08:48 Dose: 10 mg Documented By: CLAY Rivaroxaban (Rivaroxaban 20 Mg Tab) 20 mg PO QDD [facility] Stop: 08/22/24 17:35 Last Admin: 07/23/24 20:21 Dose: 20 mg Documented By: KRT Topiramate (Topiramate 100 Mg Tab) 200 mg PO BID [facility] Stop: 08/22/24 20:59 Last Admin: 07/24/24 08:42 Dose: 200 mg Documented By: Admin: 07/23/24 20:22 Dose: 200 mg Documented By: RA Vitamin D (Cholecalciferol 125 Mcg (5,000 Units) Tab) 125 mcg PO QAM [facility] Stop: 08/23/24 08:59 Last Admin: 07/24/24 08:42 Dose: 125 mcg Documented By: CASSANDRA Discontinued Medications Ioversol (Optiray 320 125ml) 112 ml IV ONCE ONE Stop: 07/23/24 13:41 Last Admin: 07/23/24 13:41 Dose: 112 ml Documented By: JOSE Ketorolac Tromethamine (Ketorolac Tromethamine 15 Mg/Ml Vial) 15 mg IV NOW ONE Stop: 07/24/24 00:07 Last Admin: 07/24/24 00:43 Dose: 15 mg Documented By: RA Ketorolac Tromethamine (Ketorolac Tromethamine 15 Mg/Ml Vial) 15 mg IV NOW ONE Stop: 07/24/24 04:09 Last Admin: 07/24/24 04:33 Dose: 15 mg Documented By: RA Levetiracetam (Levetiracetam 500 Mg/5 Ml Vial) 1,000 mg IV NOW STA Stop: 07/23/24 14:42 Last Admin: 07/23/24 14:49 Dose: 1,000 mg Documented By: JONNIE Oxycodone HCl (Oxycodone Hcl Ir 5 Mg Tab (Immediate Release)) 5 mg PO Q6H PRN PRN Reason: Pain Stop: 08/06/24 17:35 Last Admin: 07/24/24 03:05 Dose: 5 mg Documented By: Admin: 07/23/24 20:23 Dose: 5 mg Documented By: RA Description This is a 21 electrode EEG with a single channel dedicated to limited EKG. The electrodes were placed in accordance with the International 10-20 system. Report: At the onset of the EEG the patient is awake. The background is continuous and appears symmetric. the posterior dominant rhythm is 9 hertz. there is frequent intermittent generalized 2-3 hertz polymorphic delta activity. No clear stage 2 sleep transients are seen. Photic stimulation does not induce any additional abnormalities. Interpretation Impression: This is an abnormal awake and drowsy routine EEG due to intermittent generalized background slowing suggestive of a nonspecific encephalopathy. No electrographic seizures or epileptiform discharges were seen during this recording. A follow-up routine EEG as an outpatient may be beneficial.
[2024-07-24] MEDS: PREGABALIN 75 MG CAP PO SCH (13:06)
--- NOTE | 2024-07-24 13:10 | Neurology Consultation ---
Date of Consultation July 24, 2024 Assessment & Plan (1) Spell of altered consciousness: Jemima Pierce is a 53 yo F presenting with a seizure-like episode at home, with urinary incontinence, loss of consciousness/confusion and post-ictal weakness that has since resolved. EEG and MRI are unremarkable. Unclear etiology but seizure is suspected. Therefore recommend adding Keppra 500mg BID. She should follow-up with neurology in 4-6 weeks. Please contact us with any additional questions. Telehealth Consultation Telehealth Information Telehealth Information: I performed this visit using a real-time telehealth connection between my location and the patients location ([facility]). After connecting through interactive tele-video, patient was identified by name and date of and/or wristband check.Patient (or authorized healthcare corporate representative) was informed that this was a telemedicine visit and it was being conducted confidentially over secure lines. My office door was closed and no one else was present in the room with me.Patient (or authorized healthcare corporate representative) provided consent to proceed with the visit, expressed an understanding of privacy and security of the telemedicine visit, and gave permission to have a hospital corporate representative in the room in order to assist with the visit and to conduct portions of the visit, as needed. I informed the patient (or authorized healthcare corporate representative) that I reviewed their record and presented the opportunity for them to ask any questions regarding the visit today. The patient agreed to participate. History of Present Illness Reason for Consultation: Seizure-like episode Requesting Physician: Dr. Lyon Attending Physician: Tomy Lyon MD History of Present Illness Jemima Pierce is a 53 yo F presenting with multiple falls at home yesterday with urinary incontinence, post-ictal weakness and difficulty speaking. 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 She has had seizure like episodes and abscence seizures in the past and is on Topamax 200mg BID. She was recently started on lyrica 75mg TID. She does not fully recall the unwitnessed episode that occurred yesterday. Overall her strength is improved back to baseline but she continues to have some intermittent word finding difficulties. Of note her MRI and EEG were unremarkable this admission and she was started on Keppra. She has not had any further episodes. Allergies Allergy/AdvReac Type Severity Reaction Status Date / Time kiwi Allergy Severe ANAPHYLAXIS Verified 07/17/24 19:38 prochlorperazine Allergy Severe SEVERE Verified 07/17/24 19:38 DYSTONIA tree nut Allergy Severe Anaphylaxis Verified 07/17/24 19:38 metronidazole Allergy Intermediate hives Verified 07/17/24 19:38 Home Medications Medication Instructions Recorded Confirmed Type albuterol sulfate 90 mcg/actuation 2 puff inhalation QID PRN 06/02/18 07/23/24 History aerosol inhaler Shortness Of Breath Or Wheezing sumatriptan succinate 50 mg tablet 50 mg PO UD PRN Migraine Headache 06/02/18 07/23/24 History topiramate 200 mg tablet 200 mg PO BID 06/02/18 07/23/24 History fluoxetine 40 mg capsule 40 mg PO QAM 10/25/18 07/23/24 History lactobacillus combination no.4 3 0 mmu cells PO QAM 08/10/19 07/23/24 History billion cell capsule (Probiotic) dicyclomine 20 mg tablet 20 mg PO TID PRN IBS 04/05/21 07/23/24 History docusate sodium 100 mg tablet 100 mg PO BID PRN Constipation #30 06/13/21 07/23/24 Rx tabs ondansetron HCl 4 mg tablet 4 mg PO Q6H PRN Nausea 07/12/21 07/23/24 History rivaroxaban 20 mg tablet (Xarelto) 20 mg PO QDD 07/12/21 07/23/24 History oxycodone 5 mg tablet 5 mg PO Q6H PRN Pain 07/17/24 07/23/24 History acetaminophen 650 mg 650 mg PO Q8H PRN mild pain (scale 07/20/24 07/23/24 Rx tablet,extended release (Tylenol 8 score 1-4) #60 tabs Hour) baclofen 10 mg tablet 10 mg PO TID #90 tabs 07/20/24 07/23/24 Rx cholecalciferol (vitamin D3) 125 125 mcg PO QAM #30 tabs 07/20/24 07/23/24 Rx mcg (5,000 unit) tablet diclofenac sodium 1 % topical gel 2 g EXT QID #100 grams 07/20/24 07/23/24 Rx (Voltaren Arthritis Pain) famotidine 20 mg tablet 20 mg PO BID 7 days #14 tabs 07/20/24 07/23/24 Rx ibuprofen 400 mg tablet 400 mg PO Q8H PRN mild to moderate 07/20/24 07/23/24 Rx pain 7 days #21 tabs methylprednisolone 4 mg tablets in 4 mg PO DAILY #21 ea 07/20/24 07/23/24 Rx a dose pack (Medrol ([place])) pregabalin 75 mg capsule (Lyrica) 75 mg PO TID #90 caps 07/20/24 07/23/24 Rx tapentadol 50 mg tablet (Nucynta) 50 mg PO Q4H PRN severe pain 07/20/24 07/23/24 Rx (scale score 7-10) #30 tabs Patient History Medical History Cervicalgia Bipolar disorder, unspecified COVID-19 Hydronephrosis with urinary obstruction due to ureteral calculus Suicidal ideation Asthma Not using inhaler on a regular basis. Denies having any h/o hospitalization or intubation due to asthma Chronic anticoagulation Surgical History Hx of tonsillectomy H/O tubal ligation History of cholecystectomy Hx of foot surgery closed avulsion fx of metatarsal bone of left foot, left tear of peroneal tendon who underwent ORIF of 5th metatarsal. In April he underwent repair of peroneal brevis tendon with hardware removal in April 2024 S/P ureteral stent placement 2018 Family History Mother Dyslipidemia Social History Smoking Status: Never smoker Tobacco Type: Cigarettes Second Hand Exposure: No; Do You Dip or Chew Tobacco: No; Hx Alcohol Use: No Hx Substance Use: No Preferred Language: Bel[place]ian Communication Ability: Effective Skirt Trimmer Required: No Beliefs That Will Affect Care: None marital status: Current Living Situation: Family Current Living Situation Comment: Dad current occupational status: employed Other Information That Helps Us Care for You: No Feels Safe at Home: Declines to Answer Assistive Devices: None Review of Systems +shaking spells Physical Exam Neurological Examination: Mental Status: Awake and alert. Oriented to person, place, and time. Fluent. Comprehension intact. Affect appropriate. Cranial Nerves: II: Reads NIHSS cards, pupils 3/3 to 2/2, scott grossly intact. III/IV/: Versions intact without nystagmus, no gaze preference. V: Facial sensation symmetric to light touch VII: Facial expression symmetric VIII: Hearing intact to voice IX/X: Palate elevates symmetrically XI: Shoulder shrug symmetric XII: Tongue midline Motor: Strength was symmetric and antigravity throughout. Pronator drift was absent. There were no abnormal movements. Sensory: Sensation to light touch was intact. Coordination: Finger to nose was intact. Results & Data Vital Signs (Past 12 Hours) Vital Signs Temp Pulse Resp BP Pulse Ox O2 Del Method 07/24/24 11:12 36.6 C 64 20 124/81 97 Room Air 07/24/24 07:47 36.8 C 60 18 122/83 94 Room Air 07/24/24 03:40 36.6 C 67 18 113/77 98 Room Air Laboratory Results Abnormal lab results 07/23/24 07/23/24 07/23/24 Range/Units 13:19 13:20 14:30 Lymph # (Auto) (1.20-3.40) K/uL [place] # (Auto) (0.11-0.59) K/uL PT 12.1 H (9.0-12.0) Seconds Chloride (98-107) mmol/L BUN (6-23) mg/dl BUN/Creatinine Ratio (10-20) Triglycerides (0-150) mg/dl Cholesterol (0-200) mg/dl VLDL Cholesterol, Calc (0-30) mg/dl 25-OH Vitamin D Total 12.8 L (30-100) ng/ml Ur Specific [place] > 1.045 H (1.000-1.030) 07/24/24 Range/Units 06:55 Lymph # (Auto) 3.83 H (1.20-3.40) K/uL [place] # (Auto) 0.80 H (0.11-0.59) K/uL PT (9.0-12.0) Seconds Chloride 110 H (98-107) mmol/L BUN 27 H (6-23) mg/dl BUN/Creatinine Ratio 30.3 H (10-20) Triglycerides 234 H (0-150) mg/dl Cholesterol 219 H (0-200) mg/dl VLDL Cholesterol, Calc 47 H (0-30) mg/dl 25-OH Vitamin D Total (30-100) ng/ml Ur Specific [place] (1.000-1.030) Diagnostic Findings Head CTA 07/23/24 13:10 CT angio head w con CLINICAL HISTORY: stroke like symptoms. COMPARISON STUDY: Head CT earlier today TECHNIQUE: Unenhanced axial CT scan of the brain is performed. Subsequently, following the IV administration of 112 cc of Optiray, CT angiogram of the brain was performed from the skull base to the vertex. Images are reviewed in the axia l, sagittal, and coronal planes. 3-D MIPS images are created and assessed. IV contrast was administered without complication. All measurements were obtained according to NASCET criteria. A dose lowering technique was utilized adhering to the principles of ALARA. FINDINGS: The distal aspect of the vertebral arteries are diminutive, anatomic variant. No significant narrowing or occlusion seen at the intracranial carotid or vertebral arteries bilaterally. Basilar artery is diminutive but patent, anatomic variant. The anterior, middle, and posterior cerebral arteries are patent bilaterally. No intracranial aneurysm seen. Cerebral venous sinuses opacify normally. IMPRESSION: No significant arterial narrowing or occlusion seen at the brain. ACT 112: Negative or not required by law. The above report was generated using voice recognition software. It may contain grammatical, syntax or spelling errors. Electronically signed by: Flo Bautista M.D. 07/23/2024 2:14 PM Neck CTA 07/23/24 13:10 CT ANGIOGRAPHY OF THE NECK WITH CONTRAST CLINICAL HISTORY: Stroke like symptoms. COMPARISON STUDY: Cervical spine CT July 05, 2015. Technique: CT angiography of the carotid and vertebral arteries was obtained using Optiray and 3D reconstruction on an independent workstation. NASCET criteria was utilized. Automated exposure control was utilized for the study. A dose lowering technique was utilized adhering to the principles of ALARA. Findings: Visualized portions of the lung apices are unremarkable. There is no cervical spine fracture. There is no cervical lymphadenopathy. The bilateral common carotid, cervical internal carotid and vertebral arteries are patent. There is no aneurysm or dissection within the neck. No significant stenoses are identified. IMPRESSION: No stenosis or dissection within the bilateral common carotid, cervical internal carotid or vertebral arteries. ACT 112: Negative or not required by law. Electronically signed by: Louis Roberts M.D. 07/23/2024 2:10 PM Abdomen/Pelvis CT 07/23/24 13:[address] WITH IV CONTRAST CT DOSE: 3100.18 mGy.cm HISTORY: Ground-level fall on blood thinners TECHNIQUE: Multiaxial CT images of the abdomen and pelvis were performed following the IV administration of 112 cc of Optiray, A dose lowering technique was utilized adhering to the principles of ALARA. Sagittal and coronal reconstructions were done. COMPARISON STUDY: 01/25/2022 FINDINGS: There is bibasilar discoid atelectasis. The solid organs demonstrate no traumatic injury. There is hepatic steatosis. Gallbladder is absent. The bile ducts are not dilated. There is no hydronephrosis. The pancreas, adrenal glands, and spleen are unremarkable. There is no aortic aneurysm or periaortic adenopathy. No bowel obstruction or free air. Is no ascites. In the pelvis, there is no fluid in the cul-de-sac. The uterus is midline and not enlarged. There is no bladder lesion depicted. There is a small gas collection in the right femoral vein is most likely iatrogenic. IMPRESSION: No acute findings in the abdomen and pelvis. ACT 112: Negative or not required by law. The above report was generated using voice recognition software. It may contain grammatical, syntax or spelling errors. Electronically signed by: Qi Sharma M.D. 07/23/2024 2:[address] 07/23/24 13:11 CT cervical spine wo con CLINICAL HISTORY: Trauma. COMPARISON: None TECHNIQUE: Multiple axial CT images of the cervical spine were obtained without contrast. A dose lowering technique was utilized adhering to the principles of ALARA. FINDINGS: No cervical spine fracture or subluxation seen. There are mild degenerative changes. IMPRESSION: No cervical spine fracture seen. ACT 112: Negative or not required by law. The above report was generated using voice recognition software. It may contain grammatical, syntax or spelling errors. Electronically signed by: Flo Bautista M.D. 07/23/2024 1:59 PM Chest X-Ray 07/23/24 13:11 XR chest 1V portable CLINICAL HISTORY: Trauma COMPARISON STUDY: Chest CT July 12, 2021. FINDINGS: Lung volumes are normal. There are no airspace opacities. Linear left lower lung densities represent atelectasis. There is no pneumothorax or pleural effusion. Cardiac size is normal. Mediastinal contours are normal. There is no evidence for pulmonary edema. IMPRESSION: No acute cardiopulmonary findings. ACT 112: Negative or not required by law. Electronically signed by: Louis Roberts M.D. 07/23/2024 2:[address] 07/23/24 13:11 CT OF THE HEAD WITHOUT CONTRAST CLINICAL HISTORY: Trauma. Left-sided weakness. COMPARISON STUDY: Head CT June 12, 2021. TECHNIQUE: Helical axial images of the head were obtained without IV contrast. Automated exposure control was utilized for the study. A dose lowering technique was utilized adhering to the principles of ALARA. FINDINGS: This exam is mildly compromised by motion artifact. No acute intracranial hemorrhage, midline shift or mass effect is present. The ventricular system is unremarkable. The basal cisterns are patent. No extra- axial collections are present. There are no findings to suggest acute dural sinus thrombosis or acute territorial infarct. No significant calvarial abnormalities are present. Visualized portions of the sinuses and mastoid air cells are clear. IMPRESSION: 1. No acute intracranial findings. Exam mildly compromised by motion artifact. 2. No calvarial fractures. ACT 112: Negative or not required by law. Electronically signed by: Louis Roberts M.D. 07/23/2024 2:02 PM Pelvis X-Ray 07/23/24 13:11 XR pelvis 1-2V routine CLINICAL HISTORY: Trauma COMPARISON: None FINDINGS: Single view of the pelvis demonstrates an no acute traumatic injury. Is no fracture identified. No hip dislocation. Contrast material is identified within the ureters and bladder from a recent CT scan. IMPRESSION: Negative pelvis ACT 112: Negative or not required by law. Electronically signed by: Qi Sharma M.D. 07/23/2024 2:13 PM Brain MRI 07/23/24 19:24 Exam(s): MRI HEAD Without Contrast EXAM: MR Head Without Intravenous Contrast CLINICAL HISTORY: Reason for exam: rule out stroke. TECHNIQUE: Magnetic resonance images of the head/brain without intravenous contrast in multiple planes. COMPARISON: Prior head CT from July 23, 2024.. FINDINGS: This study is limited secondary to motion artifact. Brain: Unremarkable. No mass. No hemorrhage. No acute infarct. The flow voids at the base of the brain are intact. Ventricles: Unremarkable. No ventriculomegaly. Bones/joints: Unremarkable. No acute fracture. Sinuses: Chronic ethmoid sinusitis. No acute sinusitis. Mastoid air cells: Unremarkable as visualized. No mastoid effusion. Orbits: Unremarkable as visualized. IMPRESSION: No evidence of acute intracranial pathology. Electronically signed by: Nadiya Carpenter MD 07/23/24 22:37 PM
[2024-07-24] MEDS ORDERED: DICYCLOMINE HCL 20 MG TAB PO PRN (15:01)
[2024-07-24] MEDS ORDERED: ALBUTEROL HFA 8 GM INHALER INH PRN (15:01)
[2024-07-24] MEDS ORDERED: DOCUSATE SODIUM 100 MG CAP PO PRN (15:16)
--- NOTE | 2024-07-24 16:09 | Hospitalist Progress Note ---
Date of Service July 24, 2024 Assessment & Plan (1) Bipolar disorder, unspecified: (2) Asthma: (3) Factor V Leiden mutation: (4) Anxiety: (5) Seizure disorder: (6) Depression: (7) PTSD (post-traumatic stress disorder): (8) Complex regional pain syndrome i of left lower limb: Plan The patient is a 53-year-old female with a past medical history of bipolar, asthma, complex pain syndrome, factor V on Xarelto, recurrent DVT who presents to the ED on 07/23/2024 s/p fall and concerns for left-sided weakness and worsening aphasia. Fall-repeated falls with shakiness involving the extremities at home with incontinence but no other self injury Seizure versus CVA: Head CT, head/neck CTA unremarkable, MRI of the head is unremarkable to Did not take her Topamax for 2 consecutive days at home Continue home dose of Topamax After discussion with neurology, recommended Keppra load Awaiting echo and EEG and she has been on aspirin and Lipitor Appreciate neurology input and recommendation to continue Keppra and with an appointment with a neurologist in 4 to 6 weeks following discharge Hx bipolar/PTSD/complex regional pain syndrome continue home Oxy, Tylenol, baclofen Will continue all of her home medications Hx factor V Leiden Recurrent DVTs: Continue home Xarelto once stroke ruled out Left foot pain This has been going on since March and has had to surgeries Pain is reasonably controlled right now Advised to keep an appointment with orthopedic surgeon as an outpatient on discharge Full code DVT prophylaxis: Xarelto Admission and Anticipated Discharge Date Admission Date: July 23, 2024 Subjective 07/24/2024 The patient was seen and examined in telemetry unit She was admitted with shakiness and incontinence with recurrent fall suggestive of seizure She has been started with Keppra and feels lot better since admission and no more episode of shakiness Complains pain in the left foot which has been ongoing and other nonspecific symptoms Review of Systems Review of Systems: All systems reviewed and are unremarkable except as noted below Physical Exam Physical Exam: Lying in bed without any acute distress Constitutional: well developed, well nourished and + obese; not ill appearing Eyes: PERRL, conjunctivae normal, anicteric sclerae ENMT: external ear and nose normal, oropharynx normal Neck: trachea midline, no thyromegaly Respiratory: no respiratory distress Auscultation: lungs clear to auscultation bilaterally Cardiovascular: Rate/Rhythm: regular rate and regular rhythm; not tachycardic Heart Sounds: normal S1 and normal S2; no murmur Extremities: no edema Gastrointestinal (Abdomen): Inspection/Auscultation: normal bowel sounds; abdomen not distended Percussion/Palpation: abdomen soft; abdomen nontender Musculoskeletal: Ankle: + ankle abnormal to inspection (Left ankle and adjoining lateral aspect of foot are swollen and tender ) No acute arthritis involving any of the joints Neurologic: normal touch/pain/proprioception and moves all extremities; no focal motor deficits Lymphatic: no cervical or axillary lymphadenopathy Results & Data Results & Data Vital Signs (Past 12 Hours) Vital Signs Temp Pulse Resp BP Pulse Ox O2 Del Method 07/24/24 15:29 36.7 C 71 16 120/83 96 Room Air 07/24/24 11:12 36.6 C 64 20 124/81 97 Room Air 07/24/24 07:47 36.8 C 60 18 122/83 94 Room Air Laboratory Results Short CBC 07/24/24 Range/Units 06:55 WBC 8.68 (4.8-10.8) K/ul Hgb 15.0 (12.0-16.0) g/dl Hct 42.9 (37.0-47.0) % Plt Count 175 (130-400) K/uL BMP 07/24/24 06:55 Sodium 141 Potassium 4.0 Chloride 110 H Carbon Dioxide 23 BUN 27 H Creatinine 0.89 Glucose 78 Calcium 9.1 Medications Administered Current Inpatient Medications Acetaminophen (Acetaminophen 325 Mg Tab) 650 mg PO Q4H PRN PRN Reason: Pain or Fever Stop: 08/22/24 17:35 Last Admin: 07/23/24 23:46 Dose: 650 mg Albuterol (Albuterol Hfa 8 Gm Inhaler) 2 puffs INH QID PRN PRN Reason: Shortness Of Breath Or Wheezing Stop: 08/23/24 15:00 Aspirin (Aspirin 81 Mg Ectab) 81 mg PO DAILY [facility] Stop: 08/23/24 08:59 Last Admin: 07/24/24 08:42 Dose: 81 mg Atorvastatin Calcium (Atorvastatin 40 Mg Tab) 40 mg PO QAM [facility] Stop: 08/23/24 08:59 Last Admin: 07/24/24 08:42 Dose: 40 mg Baclofen (Baclofen 10 Mg Tab) 10 mg PO TID [facility] Stop: 08/23/24 20:59 Diclofenac Sodium (Diclofenac Sod 1% Gel 100 Gm Tube) 2 gm EXT QID [facility]; Protocol Stop: 08/23/24 16:59 Dicyclomine HCl (Dicyclomine Hcl 20 Mg Tab) 20 mg PO TID PRN PRN Reason: IBS Stop: 08/23/24 15:00 Docusate Sodium (Docusate Sodium 100 Mg Cap) 100 mg PO BID PRN PRN Reason: Constipation Stop: 08/23/24 15:15 Famotidine (Famotidine 20 Mg Tab) 20 mg PO BID [facility] Stop: 08/23/24 20:59 Fluoxetine HCl (Fluoxetine Hcl 20 Mg Cap) 40 mg PO QAM [facility] Stop: 08/23/24 08:59 Last Admin: 07/24/24 08:42 Dose: 40 mg Levetiracetam (Levetiracetam 500 Mg Tab) 500 mg PO BID [facility] Stop: 08/22/24 20:59 Last Admin: 07/24/24 08:42 Dose: 500 mg Oxycodone HCl (Oxycodone Hcl Ir 5 Mg Tab (Immediate Release)) 5 - 10 mg PO QID PRN PRN Reason: Pain Stop: 08/07/24 04:08 Last Admin: 07/24/24 13:07 Dose: 5 mg Pregabalin (Pregabalin 75 Mg Cap) 75 mg PO TID [facility] Stop: 08/23/24 13:59 Last Admin: 07/24/24 13:06 Dose: 75 mg Rivaroxaban (Rivaroxaban 20 Mg Tab) 20 mg PO QDD [facility] Stop: 08/22/24 17:35 Last Admin: 07/23/24 20:21 Dose: 20 mg Sumatriptan Succinate (Sumatriptan Succinate 50 Mg Tab) 50 mg PO UD PRN PRN Reason: Migraine Headache Stop: 08/22/24 17:35 Topiramate (Topiramate 100 Mg Tab) 200 mg PO BID [facility] Stop: 08/22/24 20:59 Last Admin: 07/24/24 08:42 Dose: 200 mg Vitamin D (Cholecalciferol 125 Mcg (5,000 Units) Tab) 125 mcg PO QAM [facility] Stop: 08/23/24 08:59 Last Admin: 07/24/24 08:42 Dose: 125 mcg
[2024-07-24] MEDS: BACLOFEN 10 MG TAB PO SCH ×2 (16:40→21:22)
[2024-07-24] MEDS: oxyCODONE HCL IR 5 MG TAB (IMMEDIATE RELEASE) PO STA (21:21)
[2024-07-24] MEDS: MELATONIN 3 MG TAB PO PRN (23:47)
[2024-07-24] MEDS: FAMOTIDINE 20 MG TAB PO SCH (23:47)
[2024-07-25 06:12] LABS: Hematocrit (blood only) 42.5 % (37.0-47.0); Hemoglobin 14.7 g/dl (12.0-16.0); Mean Corpuscular Hemoglobin 32.3 pg (25.0-34.0); Mean Corpuscular Hgb Conc 34.6 g/dL (32.0-36.0); Mean Corpuscular Volume 93.4 fL (80.0-100.0); Mean Platelet Volume 9.8 fL (9.4-12.4); Platelet Count 178 K/uL (130-400); RDW Coefficient of Variation 12.7 % (11.5-14.5); RDW Standard Deviation 43.6 fL (36.4-46.3); Red Blood Count 4.55 M/uL (4.20-5.40); White Blood Count 7.33 K/ul (4.8-10.8)
[2024-07-25 06:30] LABS: BUN Creatinine Ratio 31.3 (10-20); Calcium 8.9 mg/dl (8.6-10.3); Creatinine Clr Calc Pharmacy 65.9 ml/min; Potassium 3.9 mmol/L (3.5-5.1)
[2024-07-25 06:50] LABS: Basophils # (auto) 0.04 K/uL (0.00-0.20); Basophils % (auto) 0.5 %; Eosinophils # (auto) 0.17 K/uL (0.00-0.50); Eosinophils % (auto) 2.3 %; Immature Granulocytes # (auto) 0.08 K/uL (0.01-0.20); Immature Granulocytes % (auto) 1.1 %; Lymphocytes # (auto) 3.72 K/uL (1.20-3.40); Lymphocytes % (auto) 50.8 %; Monocytes # (auto) 0.72 K/uL (0.11-0.59); Monocytes % (auto) 9.8 %; Neutrophils % (auto) 35.5 %; RBC Morphology Unremarkable
[2024-07-25] MEDS ORDERED: CHOLECALCIFEROL 125 MCG (5,000 UNITS) TAB PO SCH (09:00)
[2024-07-25] MEDS: TAPENTADOL HCL 50 MG TAB PO PRN (13:47)
--- NOTE | 2024-07-25 14:36 | Electrocardiogram Report ---
Test Reason : Blood Pressure : */* mmHG Vent. Rate : 64 BPM Atrial Rate : 64 BPM P-R Int : 158 ms QRS Dur : 82 ms QT Int : 418 ms P-R-T Axes : 67 48 71 degrees QTcB Int : 431 ms Normal sinus rhythm Normal ECG When compared with ECG of 24-Jul-2024 04:59, No significant change was found Confirmed by Richi Tamez ([id number]) on 07/25/2024 2:36:12 PM Referred By: REFERRED SELF Confirmed By: Richi Tamez
[2024-07-25] MEDS ORDERED: hydrOXYzine HCl 25 MG TAB PO PRN (16:15)
--- NOTE | 2024-07-25 16:16 | Hospitalist Progress Note ---
Date of Service July 25, 2024 Assessment & Plan (1) Bipolar disorder, unspecified: (2) Asthma: (3) Factor V Leiden mutation: (4) Anxiety: (5) Seizure disorder: (6) Depression: (7) PTSD (post-traumatic stress disorder): (8) Complex regional pain syndrome i of left lower limb: Plan The patient is a 53-year-old female with a past medical history of bipolar, asthma, complex pain syndrome, factor V on Xarelto, recurrent DVT who presents to the ED on 07/23/2024 s/p fall and concerns for left-sided weakness and worsening aphasia. Fall-repeated falls with shakiness involving the extremities at home with incontinence but no other self injury Seizure versus CVA: Head CT, head/neck CTA unremarkable, MRI of the head is unremarkable. ECHO w/ EF of 60-65%, no interatrial shunt EEG: No electrographic seizures or epileptiform discharges were seen during this recording. A follow-up routine EEG as an outpatient may be beneficial. Did not take her Topamax for 2 consecutive days at home Continue home dose of Topamax After discussion with neurology, Keppra was added, c/w keppra No driving until cleared per neuro as OP, d/w patient. Appreciate neurology input and recommendation to continue Keppra and with an appointment with a neurologist in 4 to 6 weeks following discharge Hx bipolar/PTSD/complex regional pain syndrome continue home Oxy, Tylenol, baclofen, nucynta Will continue all of her home medications Hx factor V Leiden Recurrent DVTs: Continue home Xarelto Left foot pain This has been going on since March, worsened nancy after 2 surgeries in left foot Pain is reasonably controlled right now Advised to keep an appointment with orthopedic surgeon as an outpatient on discharge Advised to c/w pt/ot. Full code DVT prophylaxis: Xarelto Admission and Anticipated Discharge Date Admission Date: July 23, 2024 Subjective 07/24/2024 The patient was seen and examined in telemetry unit She was admitted with shakiness and incontinence with recurrent fall suggestive of seizure She has been started with Keppra and feels lot better since admission and no more episode of shakiness Complains pain in the left foot which has been ongoing and other nonspecific symptoms Physical Exam Physical Exam: Physical Exam: Lying in bed with out any acute dist ress Constitutional: well developed, we ll nourished and + obese; not ill ap pearing Eyes: PERRL, conjunctiva e normal, anicteri c sclerae ENMT: external ear and n ose normal, oropha rynx normal Neck: trachea midline, n o thyromegaly Respiratory: no respiratory dis tress Auscultatio n: lungs clear to auscultation bilat erally Cardiovascular: Rate/Rhythm: regul ar rate and regula r rhythm; not tach ycardic Heart Jayla nds: normal S1 and normal S2; no mur mur Extremities: no edema Gastrointestinal ( Abdomen): Inspection/Auscult ation: normal sunday l sounds; abdomen not distended Per cussion/Palpation: abdomen soft; abd omen nontender Musculoskeletal: Ankle: + ankle abn ormal to inspectio n (Left ankle and adjoining lateral aspect of foot are swollen and sensi tive to touch, no erythema noted ) No acute arthriti s involving any of the joints Neurologic: normal touch/pain/ proprioception and moves all extremi ties; no focal mot or deficits Lymphatic: no cervical or axi llary lymphadenopa thy Results & Data Results & Data Vital Signs (Past 12 Hours) Vital Signs Temp Pulse Resp BP BP Pulse Ox O2 Del Method 07/25/24 15:12 36.6 C 66 18 102/65 94 Room Air 07/25/24 10:49 36.5 C 74 17 113/75 97 Room Air 07/25/24 07:39 36.5 C 71 17 105/68 96 Room Air
[2024-07-26 07:50] LABS: Basophils # (auto) 0.03 K/uL (0.00-0.20); Basophils % (auto) 0.4 %; Eosinophils # (auto) 0.26 K/uL (0.00-0.50); Eosinophils % (auto) 3.6 %; Hematocrit (blood only) 41.8 % (37.0-47.0); Hemoglobin 14.4 g/dl (12.0-16.0); Immature Granulocytes # (auto) 0.06 K/uL (0.01-0.20); Immature Granulocytes % (auto) 0.8 %; Lymphocytes # (auto) 3.19 K/uL (1.20-3.40); Lymphocytes % (auto) 44.7 %; Mean Corpuscular Hgb Conc 34.4 g/dL (32.0-36.0); Mean Corpuscular Volume 92.9 fL (80.0-100.0); Mean Platelet Volume 10.2 fL (9.4-12.4); Monocytes # (auto) 0.71 K/uL (0.11-0.59); Neutrophils # (auto) 2.88 K/uL (1.40-6.50); Neutrophils % (auto) 40.5 %; Platelet Count 166 K/uL (130-400); RDW Coefficient of Variation 12.8 % (11.5-14.5); RDW Standard Deviation 43.5 fL (36.4-46.3); White Blood Count 7.13 K/ul (4.8-10.8)
[2024-07-26 08:04] LABS: BUN Creatinine Ratio 34.4 (10-20); Creatinine Clr Calc Pharmacy 72.5 ml/min; Magnesium 1.9 mg/dl (1.7-2.4); Phosphorus 4.9 mg/dl (2.5-4.9); Potassium 3.9 mmol/L (3.5-5.1)
--- NOTE | 2024-07-26 16:24 | Hospitalist Progress Note ---
Date of Service July 26, 2024 Assessment & Plan (1) Bipolar disorder, unspecified: (2) Asthma: (3) Factor V Leiden mutation: (4) Anxiety: (5) Seizure disorder: (6) Depression: (7) PTSD (post-traumatic stress disorder): (8) Complex regional pain syndrome i of left lower limb: Plan The patient is a 53-year-old female with a past medical history of bipolar, asthma, complex pain syndrome, factor V on Xarelto, recurrent DVT who presents to the ED on 07/23/2024 s/p fall and concerns for left-sided weakness and worsening aphasia. Fall-repeated falls with shakiness involving the extremities at home with incontinence but no other self injury Seizure versus CVA: Head CT, head/neck CTA unremarkable, MRI of the head is unremarkable. ECHO w/ EF of 60-65%, no interatrial shunt EEG: No electrographic seizures or epileptiform discharges were seen during this recording. A follow-up routine EEG as an outpatient may be beneficial. Did not take her Topamax for 2 consecutive days at home Continue home dose of Topamax After discussion with neurology, Keppra was added, c/w keppra No driving until cleared per neuro as OP, d/w patient. Appreciate neurology input and recommendation to continue Keppra and with an appointment with a neurologist in 4 to 6 weeks following discharge Hx bipolar/PTSD/complex regional pain syndrome continue home Oxy, Tylenol, baclofen, nucynta Will continue all of her home medications Hx factor V Leiden Recurrent DVTs: Continue home Xarelto Left foot pain This has been going on since March, worsened nancy after 2 surgeries in left foot Pain is reasonably controlled right now Advised to keep an appointment with orthopedic surgeon as an outpatient on discharge Advised to c/w pt/ot. c/w vit D supplement due to osteopenia LLE. Full code DVT prophylaxis: Xarelto Admission and Anticipated Discharge Date Admission Date: July 23, 2024 Subjective The patient was seen and examined in telemetry unit She was admitted with shakiness and incontinence with recurrent fall suggestive of seizure She has been started with Keppra and feels lot better since admission and no more episode of shakiness Complains pain in the left foot which has been ongoing and other nonspecific s ymptoms Pt reports being able to ambulate gradually today, would like to see how she does today and possible dc to home w/ HH tomorrow. Physical Exam Physical Exam: Physical Exam: Lying in bed with out any acute dist ress Constitutional: well developed, we ll nourished and + obese; not ill ap pearing Eyes: PERRL, conjunctiva e normal, anicteri c sclerae ENMT: external ear and n ose normal, oropha rynx normal Neck: trachea midline, n o thyromegaly Respiratory: no respiratory dis tress Auscultatio n: lungs clear to auscultation bilat erally Cardiovascular: Rate/Rhythm: regul ar rate and regula r rhythm; not tach ycardic Heart Jayla nds: normal S1 and normal S2; no mur mur Extremities: no edema Gastrointestinal ( Abdomen): Inspection/Auscult ation: normal sunday l sounds; abdomen not distended Per cussion/Palpation: abdomen soft; abd omen nontender Musculoskeletal: Ankle: + ankle abn ormal to inspectio n (Left ankle and adjoining lateral aspect of foot are swollen and sensi tive to touch, no erythema noted ) No acute arthriti s involving any of the joints. Sensi tivity decreasing. Neurologic: normal touch/pain/ proprioception and moves all extremi ties; no focal mot or deficits Lymphatic: no cervical or axi llary lymphadenopa thy Results & Data Results & Data Vital Signs (Past 12 Hours) Vital Signs Temp Pulse Resp BP BP Pulse Ox O2 Del Method 07/26/24 15:11 36.5 C 70 16 121/81 96 Room Air 07/26/24 11:49 36.9 C 63 18 100/67 96 Room Air 07/26/24 07:27 36.5 C 63 16 125/82 97 Room Air
[2024-07-27 07:05] LABS: BUN Creatinine Ratio 30.2 (10-20); Calcium 9.1 mg/dl (8.6-10.3); Creatinine Clr Calc Pharmacy 75.8 ml/min
[2024-07-27] MEDS: SUMAtriptan succinate 50 MG TAB PO PRN (09:19)
[2024-07-27 11:19] VITALS: BP 100/59; PULSE 68; RESP 18; TEMP 97.7; O2SAT 95
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
== END 2024-07-27 13:47 | disposition home or self-care (01) | DRG 101 ==
LOC: ED 13:05 → 2S 15:13 → SUATTDRO 15:13 → 2S 16:59